=== PATIENT | female | born 1945 | race Caucasian/White ===

== ENCOUNTER → 2019-10-28 13:03 | Outpatient (BNVA) | payer MEDICARE, OTHER, SELFPAY | PROVIDERS: Family Provider Family Medicine; PCP Family Medicine; Visit Provider Family Medicine | DX: E11.65 Type 2 diabetes mellitus with hyperglycemia (principal); E78.2 Mixed hyperlipidemia; Z79.4 Long term (current) use of insulin; I10 Essential (primary) hypertension | CPT/HCPCS: 80053; 80061; 83036; 84443; 85025 ==

== ENCOUNTER → 2019-10-29 11:22 | Outpatient (BNVA) | payer MEDICARE, OTHER, SELFPAY | PROVIDERS: Family Provider Family Medicine; PCP Family Medicine; Visit Provider Specialist | DX: E11.40 Type 2 diabetes mellitus with diabetic neuropathy, unspecified (principal) | CPT/HCPCS: 99212; G0463 ==

== ENCOUNTER → 2020-02-01 12:49 | Outpatient (BNVA) | payer MEDICARE, OTHER, SELFPAY | PROVIDERS: Family Provider Family Medicine; PCP Family Medicine; Visit Provider Specialist | DX: E11.40 Type 2 diabetes mellitus with diabetic neuropathy, unspecified (principal); Z79.891 Long term (current) use of opiate analgesic | CPT/HCPCS: 99213 ==

== ENCOUNTER → 2020-04-28 11:17 | Outpatient (BNVA) | payer MEDICARE, OTHER, SELFPAY | PROVIDERS: Family Provider Family Medicine; PCP Family Medicine; Visit Provider Family Medicine | DX: E11.9 Type 2 diabetes mellitus without complications (principal) | CPT/HCPCS: 80053; 80061; 83036; 85025 ==

== ENCOUNTER → 2020-05-03 10:00 | Outpatient (BNVA) | payer MEDICARE, OTHER, SELFPAY | PROVIDERS: Family Provider Family Medicine; PCP Family Medicine; Visit Provider Specialist | DX: E11.40 Type 2 diabetes mellitus with diabetic neuropathy, unspecified (principal) | CPT/HCPCS: 99213 ==

== ENCOUNTER → 2020-06-15 13:08 | Outpatient (BNVA) | payer MEDICARE, OTHER, SELFPAY | PROVIDERS: Family Provider Family Medicine; PCP Family Medicine; Visit Provider Family Medicine | DX: E11.9 Type 2 diabetes mellitus without complications (principal) | CPT/HCPCS: 80048 ==

== ENCOUNTER → 2020-10-15 13:31 | Outpatient (BNVA) | payer MEDICARE, OTHER, SELFPAY | PROVIDERS: Family Provider Family Medicine; PCP Family Medicine | DX: M79.672 Pain in left foot (principal); L03.119 Cellulitis of unspecified part of limb; L02.619 Cutaneous abscess of unspecified foot | CPT/HCPCS: 73630 ==

== ENCOUNTER → 2020-10-25 10:48 | Outpatient (BNVA) | payer MEDICARE, OTHER, SELFPAY | PROVIDERS: Family Provider Family Medicine; PCP Family Medicine; Visit Provider Family Medicine | DX: I10 Essential (primary) hypertension (principal); E11.9 Type 2 diabetes mellitus without complications; E78.2 Mixed hyperlipidemia; Z79.4 Long term (current) use of insulin | CPT/HCPCS: 85025 ==

== ENCOUNTER → 2020-10-26 08:01 | Outpatient (BNVA) | payer MEDICARE, OTHER, SELFPAY | PROVIDERS: Family Provider Family Medicine; PCP Family Medicine; Visit Provider Specialist | DX: E11.40 Type 2 diabetes mellitus with diabetic neuropathy, unspecified (principal); Z79.4 Long term (current) use of insulin | CPT/HCPCS: 99213 ==

== ENCOUNTER → 2020-11-16 11:42 | Outpatient (BNVA) | payer MEDICARE, OTHER, SELFPAY | PROVIDERS: Family Provider Family Medicine; PCP Family Medicine; Visit Provider Family Medicine | DX: E11.9 Type 2 diabetes mellitus without complications (principal); E78.2 Mixed hyperlipidemia; I10 Essential (primary) hypertension; Z79.4 Long term (current) use of insulin | CPT/HCPCS: 80053; 80061; 83036; 84443; 85025 ==

== ENCOUNTER → 2021-01-30 15:16 | Outpatient (BNVA) | payer MEDICARE, OTHER, SELFPAY | PROVIDERS: Family Provider Family Medicine; PCP Family Medicine; Visit Provider Specialist | DX: E11.40 Type 2 diabetes mellitus with diabetic neuropathy, unspecified (principal); Z79.4 Long term (current) use of insulin | CPT/HCPCS: 99213 ==

== ENCOUNTER → 2021-02-27 14:41 | Outpatient (BNVA) | payer MEDICARE, OTHER, SELFPAY | PROVIDERS: Family Provider Family Medicine; PCP Family Medicine; Visit Provider Family Medicine | DX: K31.84 Gastroparesis (principal); E11.9 Type 2 diabetes mellitus without complications; E78.2 Mixed hyperlipidemia; I10 Essential (primary) hypertension; G43.009 Migraine without aura, not intractable, without status migrainosus; R07.9 Chest pain, unspecified; Z79.4 Long term (current) use of insulin | CPT/HCPCS: 80053; 80061; 83036; 84443; 85025 ==

== ENCOUNTER → 2021-04-06 13:50 | Outpatient (BNVA) | payer MEDICARE, OTHER, SELFPAY | PROVIDERS: Family Provider Family Medicine; PCP Family Medicine; Visit Provider Nurse Practitioner Family | DX: Z20.822 Contact with and (suspected) exposure to COVID-19 (principal) | CPT/HCPCS: 87635 ==

== ENCOUNTER → 2021-05-01 07:59 | Outpatient (BNVA) | payer MEDICARE, OTHER, SELFPAY | PROVIDERS: Family Provider Family Medicine; PCP Family Medicine; Visit Provider Specialist | DX: E11.42 Type 2 diabetes mellitus with diabetic polyneuropathy (principal); Z79.4 Long term (current) use of insulin | CPT/HCPCS: 99213; 99214 ==

== ENCOUNTER → 2021-05-22 11:57 | Outpatient (BNVA) | payer MEDICARE, OTHER, SELFPAY | PROVIDERS: Family Provider Family Medicine; PCP Family Medicine; Visit Provider Family Medicine | DX: E11.9 Type 2 diabetes mellitus without complications (principal); E78.2 Mixed hyperlipidemia; I10 Essential (primary) hypertension; K31.84 Gastroparesis; Z79.4 Long term (current) use of insulin | CPT/HCPCS: 80053; 80061; 83036; 84443; 85025 ==

== ENCOUNTER → 2021-07-31 08:01 | Outpatient (BNVA) | payer MEDICARE, OTHER, SELFPAY | PROVIDERS: Family Provider Family Medicine; PCP Family Medicine; Visit Provider Specialist | DX: E11.42 Type 2 diabetes mellitus with diabetic polyneuropathy (principal); E11.65 Type 2 diabetes mellitus with hyperglycemia; Z79.891 Long term (current) use of opiate analgesic | CPT/HCPCS: 99213; 99214 ==

== ENCOUNTER → 2021-09-19 12:51 | Outpatient (BNVA) | payer MEDICARE, OTHER, SELFPAY | PROVIDERS: Family Provider Family Medicine; PCP Family Medicine; Visit Provider Family Medicine | DX: R79.89 Other specified abnormal findings of blood chemistry (principal) | CPT/HCPCS: 80053; 80061; 83036; 85025 ==

== ENCOUNTER → 2021-09-26 13:17 | Outpatient (BNVA) | payer MEDICARE, OTHER, SELFPAY | PROVIDERS: Family Provider Family Medicine; PCP Family Medicine; Visit Provider Family Medicine | DX: E11.9 Type 2 diabetes mellitus without complications (principal); R79.89 Other specified abnormal findings of blood chemistry; E78.2 Mixed hyperlipidemia; I10 Essential (primary) hypertension; Z79.4 Long term (current) use of insulin | CPT/HCPCS: 84439; 84443; 84481 ==

== ENCOUNTER → 2021-10-30 09:06 | Outpatient (BNVA) | payer MEDICARE, OTHER, SELFPAY | PROVIDERS: Family Provider Family Medicine; PCP Family Medicine; Visit Provider Specialist | DX: E11.42 Type 2 diabetes mellitus with diabetic polyneuropathy (principal); Z79.4 Long term (current) use of insulin; Z79.891 Long term (current) use of opiate analgesic | CPT/HCPCS: 99213; 99214 ==

== ENCOUNTER → 2022-03-26 08:47 | Outpatient (BNVA) | payer MEDICARE, OTHER, SELFPAY | PROVIDERS: Family Provider Family Medicine; PCP Family Medicine; Visit Provider Specialist | DX: E11.42 Type 2 diabetes mellitus with diabetic polyneuropathy (principal); Z79.4 Long term (current) use of insulin; M79.7 Fibromyalgia; Z79.891 Long term (current) use of opiate analgesic | CPT/HCPCS: 99213; 99214 ==

== ENCOUNTER → 2022-04-17 10:28 | Outpatient (BNVA) | payer MEDICARE, OTHER, SELFPAY | PROVIDERS: Family Provider Family Medicine; PCP Family Medicine; Visit Provider Family Medicine | DX: R79.89 Other specified abnormal findings of blood chemistry (principal); E11.9 Type 2 diabetes mellitus without complications; E78.5 Hyperlipidemia, unspecified; I10 Essential (primary) hypertension | CPT/HCPCS: 80053; 80061; 83036; 84443; 85025 ==

== ENCOUNTER 2022-05-22 16:07 | Inpatient (IN) | payer MEDICARE, OTHER, SELFPAY ==
[2022-05-22 16:08] VITALS: BP 141/92; PULSE 104; RESP 18; TEMP 36.9; O2SAT 98; BMI 28.3
--- NOTE | 2022-05-22 16:22 | CTR_ITS ---
PROCEDURE INFORMATION: Exam: CT Abdomen And Pelvis Without Contrast Exam date and time: 05/22/2022 7:22 PM Age: 76 years old Clinical indication: Vomiting; Prior surgery; Surgery date: 6+ months; Surgery type: Gb, hyst; Additional info: Abd pain TECHNIQUE: Imaging protocol: Computed tomography of the abdomen and pelvis without contrast. Radiation optimization: All CT scans at this facility use at least one of these dose optimization techniques: automated exposure control; mA and/or kV adjustment per patient size (includes targeted exams where dose is matched to clinical indication); or iterative reconstruction. COMPARISON: CT abdomen pelvis con [id number] 01/06/2018 7:53 AM RADIATION DOSE METRICS: Total DLP (mGy-cm): 690.89 FINDINGS: Liver: Normal. No mass. Gallbladder and bile ducts: Normal. No calcified stones. No ductal dilation. Pancreas: Normal. No ductal dilation. Spleen: Normal. No splenomegaly. Adrenal glands: Normal. No mass. Kidneys and ureters: Left ureteropelvic junction region 8.8 mm without hydronephrosis. Several right kidney punctate nonobstructing calyceal stones. Stomach and bowel: Constipation. Appendix: No evidence of appendicitis. Intraperitoneal space: Unremarkable. No free air. No significant fluid collection. Vasculature: Unremarkable. No abdominal aortic aneurysm. Lymph nodes: Unremarkable. No enlarged lymph nodes. Urinary bladder: Unremarkable as visualized. Reproductive: Unremarkable as visualized. Bones/joints: Unremarkable. No acute fracture. Soft tissues: Unremarkable. CT/CT abdomen pelvis con [id number] IMPRESSION: 1. Left ureteropelvic junction region 8.8 mm without hydronephrosis. 2. Several right kidney punctate nonobstructing calyceal stones. 3. Constipation.
--- NOTE | 2022-05-22 16:23 | ECG_ITS ---
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 Measurements Intervals [place] Rate: 109 P: GA: QRS: 21 QRSD: 142 T: 111 QT: 388 QTc: 523 Interpretive Statements Sinus tachycardia LEFT BUNDLE BRANCH BLOCK [120+ ms QRS DURATION, 80+ ms Q/S IN V1/V2, 85+ ms R IN I/aVL/V5/V6] Compared to ECG 12/13/2017 05:47:31 Left bundle-branch block now present Myocardial infarct finding no longer present Electronically Signed On 05-22-2022 18:55:56 CDT by Sandip Sweet M.D. [id number]
--- NOTE | 2022-05-22 16:34 | ED_ITS ---
Documented by User: Jeremias Galicia DO 05/22/22 18:34 HPI - Abdominal Pain General: Chief Complaint: ER Hold Stated Complaint: N/V/ ABDOMINAL PAIN Time Seen by Provider: 05/22/22 16:22 Source: patient Mode of arrival: EMS History of Present Illness: 36-year-old female presents emergency room with c omplaints of abdominal discomfort. She had nausea vomiting began earlier today. She has several previous abdominal surgeries and has had bowel obstruction. She denies any medic easier melena. She denies any fever sweats chills no dysuria urgency or frequency. She has vomited several times since she was picked up and is still very nauseous and has significant pain here. MD elicited complaint: abdominal pain Pertinent past history: other (History of small bowel obstruction) Onset (ago): hour(s) Pain Consistency: constant Location: Diffuse Severity: severe Quality: cramping Radiation: none Exacerbating factors: nothing Relieving factors: nothing Associated Symptoms: Reports bloating, constipation, GI cramping, nausea, poor appetite and vomiting; Denies anorexia, belching, change in bowel habits, change in stool character, chills, coffee ground emesis, diarrhea, dyspepsia, dysuria, excessive flatus, fever(s), heartburn, hematochezia, hematuria, hematemesis, fecal incontinence, loose stools, melena and syncope Review of Systems Const: Denies: fever(s), chills, fatigue or malaise ENMT: Denies: throat pain, ear or mastoid pain, nasal discharge or nasal congestion Card: Denies: chest pain, palpitations or syncope Resp: Denies: dyspnea, productive cough or non-productive cough GI: Reports: abdominal pain, nausea, vomiting, constipation, bloating and GI cramping; Denies: hematemesis, coffee ground emesis, heartburn, diarrhea, belching, excessive flatus, fecal incontinence, change in bowel habits, change in stool character, hematochezia or melena : Denies: dysuria or hematuria Skin/Breast: Denies: rash or pruritus PFS ED PFSH: Medical History Abdominal pain Acidosis, lactic Anxiety and depression ASHD (arteriosclerotic heart disease) Cataracts, bilateral CKD (chronic kidney disease) Diabetes Diabetic neuropathy Diabetic peripheral neuropathy Fibromyalgia Gastroparesis Hyperlipidemia Hypertension Insomnia Intractable abdominal pain Intractable vomiting with nausea Left renal stone Leukocytosis Migraine Pyuria Ureterolithiasis Surgical History H/O angioplasty H/O carpal tunnel repair H/O: hysterectomy History of cholecystectomy Family History Mother , at age 65 Heart attack Father , at age 63 Heart attack Other Diabetes Hypertension Social History Smoking and tobacco status: never smoked Second hand smoke exposure: No Alcohol intake: never Adopted: No Caregiver/support person: Yes (spouse) Lives independently: Yes Household members: spouse Marital status: service: No Current occupational status: retired History of recent travel: No Current gender identity: Female Special vandana needs: No Agree to transfusion: Yes Physical Exam Const: GENERAL APPEARANCE: cooperative and comfortable ORIENTATION/CONSCIOUSNESS: Yes awake, Yes oriented to person, Yes oriented to place and Yes oriented to time HENMT: COMMON NORMALS: normocephalic, atraumatic, hearing grossly normal bilaterally, external ears normal, EAC's normal, TM's normal bilaterally, Normal nasal mucous membranes and turbinates present, moist oral mucous membranes and oropharynx normal HEAD & SCALP: normocephalic and atraumatic NOSE: Normal nasal mucous membranes and turbinates present EXTERNAL EAR: Yes external ears normal EXTERNAL AUDITORY CANAL: EAC's normal TYMPANIC MEMBRANE: TM's normal bilaterally Eye: COMMON NORMALS: Equal, round and reactive pupils present, EOMs intact bilaterally, conjunctivae normal and no scleral icterus CONJUNCTIVA: Yes conjunctivae normal PUPIL: Yes Equal, round and reactive pupils present Neck/C-Spine: COMMON NORMALS: full ROM, no lymphadenopathy, supple and no JVD Lymph: LYMPHATIC: no lymphadenopathy noted and no lymphedema noted Resp: COMMON NORMALS: normal respiratory effort, No retractions, No use of accessory muscles and clear to auscultation bilaterally AUSCULTATION: clear to auscultation bilaterally Cardio: COMMON NORMALS: no JVD, regular rate, regular rhythm and No murmurs present (Cardio) RATE: regular rate RHYTHM: regular rhythm GI: AUSCULTATION: Yes Hypoactive bowel sounds present PALPATION: Yes Tenderness to palpation present (GI) Extremity: COMMON NORMALS: normal to inspection, capillary refill normal, no clubbing, cyanosis or edema, no calf tenderness and no pedal edema Neuro: SENSORIUM/ORIENTATION: Yes oriented to person, Yes oriented to place and Yes oriented to time Skin: COMMON NORMALS: no rashes or lesions noted GENERAL SKIN EXAM: no rashes or lesions noted Course Vital Signs: Vital signs: Vital Signs Temperature 98.4 F 05/25/22 12:48 Pulse Rate 77 05/25/22 12:48 Respiratory Rate 15 05/25/22 12:48 Blood Pressure 147/86 05/25/22 12:48 Pulse Oximetry 94 05/25/22 12:48 Oxygen Delivery Me thod 05/25/22 12:00 Oxygen Flow Rate 8 05/25/22 02:17 MDM - Abdominal Pain Medical Decision Making Care signed out to Dr. Fontenot at change of shift. See final notes for diagnosis and disposition. Lab Data : 05/25/22 04:50 05/25/22 04:50 Labs/Radiology: Radiology Impressions Abdomen/Pelvis CT 05/22/22 16:22 IMPRESSION: 1. Left ureteropelvic junction region 8.8 mm without hydronephrosis. 2. Several right kidney punctate nonobstructing calyceal stones. 3. Constipation. ADDENDUM: 05/22/222020 Findings and impression should read left ureteropelvic junction region 8.8 mm urinary calculus without hydronephrosis. Right-sided renal calyceal stones appears similar compared to prior exam and are nonobstructive measuring up to 4.3 mm. C-Arm Fluoroscopy 05/23/22 12:16 IMPRESSION: Left ureteral pyelography and left ureteral stent placement as above. Laboratory Results WBC 11.9 10^3/uL (4.0-10.0) H 05/22/22 16:56 RBC 4.51 10^6/uL (4.1-5.3) 05/22/22 16:56 Hgb 13.3 g/dL (11.5-15.3) 05/22/22 16:56 Hct 44.2 % (37.0-47.0) 05/22/22 16:56 MCV 98.0 fl (81-99) 05/22/22 16:56 MCH 29.5 pg (28.0-34.0) 05/22/22 16:56 MCHC 30.1 g/dL (30.0-36.0) 05/22/22 16:56 RDW 13.0 % (12.1-15.1) 05/22/22 16:56 Plt Count 303 10^3/cmm (130-400) 05/22/22 16:56 MPV 11.2 fL (7.4-10.4) H 05/22/22 16:56 Neut % (Auto) 80.3 % 05/22/22 16:56 Lymph % (Auto) 16.7 % 05/22/22 16:56 [place] % (Auto) 2.2 % 05/22/22 16:56 Eos % (Auto) 0.2 % 05/22/22 16:56 Baso % (Auto) 0.3 % 05/22/22 16:56 Neut # (Auto) 9.55 10^3/uL (1.8-7.7) H 05/22/22 16:56 Lymph # (Auto) 2.0 10^3/uL (0.8-4.8) 05/22/22 16:56 [place] # (Auto) 0.3 10^3/uL (0.2-0.9) 05/22/22 16:56 Eos # (Auto) 0.0 10^3/uL (0.0-0.8) 05/22/22 16:56 Baso # (Auto) 0.0 10^3/uL (0.0-0.1) 05/22/22 16:56 Nucleated RBC % (auto) 0 % 05/22/22 16:56 Nucleated RBCs # 0.0 /100WBC 05/22/22 16:56 Sodium 139 mmol/L (136-145) 05/22/22 16:56 Potassium 3.5 mmol/L (3.5-5.1) 05/22/22 16:56 Chloride 101 mmol/L (98-107) 05/22/22 16:56 Carbon Dioxide 18 mmol/L (22-29) L 05/22/22 16:56 Anion Gap 23.5 (5-19) H 05/22/22 16:56 BUN 21 mg/dL (8-23) 05/22/22 16:56 Creatinine 1.2 mg/dL (0.5-0.9) H 05/22/22 16:56 GFR Calculation Not Reportable 05/22/22 16:56 Glucose 205 mg/dL (65-115) H 05/22/22 16:56 Calculated Osmolality 297 mOsm/kg (285-295) H 05/22/22 16:56 Lactic Acid 4.4 mmol/L (0.5-2.2) H* 05/22/22 19:40 Calcium 9.3 mg/dL (8.5-10.5) 05/22/22 16:56 Total Bilirubin 0.4 mg/dL (0.15-1.2) 05/22/22 16:56 AST 14 U/L (0-32) 05/22/22 16:56 ALT 12 U/L (0-33) 05/22/22 16:56 Alkaline Phosphatase 81 IU/L (35-105) 05/22/22 16:56 C-Reactive Protein 3.0 mg/L (0.0-4.9) 05/22/22 16:56 Total Protein 7.0 g/dL (6.6-8.7) 05/22/22 16:56 Albumin 4.0 g/dL (3.5-5.2) 05/22/22 16:56 Globulin 3.0 g/dL (1.3-4.6) 05/22/22 16:56 Procalcitonin 0.08 ng/mL (0-0.5) 05/22/22 16:56 Free T4 1.41 ng/dL (0.82-1.77) 05/22/22 16:56 Urine Color Yellow (Yellow) 05/22/22 20:30 Urine Appearance Hazy (CLEAR) A 05/22/22 20:30 Urine pH 5 (5-7) 05/22/22 20:30 Ur Specific [place] 1.020 (1.005-1.030) 05/22/22 20:30 Urine Protein 2+ (Negative) H 05/22/22 20:30 Urine Glucose (UA) 1+ (Normal) H 05/22/22 20:30 Urine Ketones 1+ (Negative) H 05/22/22 20:30 Urine Blood 3+ (Negative) H 05/22/22 20:30 Urine Nitrate Negative (Negative) 05/22/22 20:30 Urine Bilirubin Neg (Negative) 05/22/22 20:30 Urine Urobilinogen Norm mg/dL (Negative) 05/22/22 20:30 Ur Leukocyte Esterase Negative (Negative) 05/22/22 20:30 Urine RBC 0-4 /hpf (0-2) H 05/22/22 20:30 Urine WBC 5-10 /hpf (0-5) H 05/22/22 20:30 Ur Squamous Epith Cells 5-10 /hpf (0-5) H 05/22/22 20:30 Amorphous Sediment 3+ /hpf 05/22/22 20:30 Urine Bacteria Trace /hpf (NONE) 05/22/22 20:30 Hyaline Casts 5-10 /lpf H 05/22/22 20:30 Discharge Plan Discharge Patient Disposition: Admitted As Inpatient Admit Provider: Gurdeep Heredia Clinical Impression: Abdominal pain, Ureterolithiasis, Leukocytosis, Acidosis, lactic, Intractable vomiting with nausea, Intractable abdominal pain Condition: Stable Discharge Diet: Diabetic Discharge Activity: Increase activity as tolerated Sign Out Sign Out Data: Patient Sign Out occurred on 05/22/22 at 18:45. Patient's care was discussed, and care was transferred from to Shakeel Fontenot MD. Coding Level of Care Code ED Reel And Rewinder Operator for Chg Fwd Exam Comprehensive Documented by User: Shakeel Fontenot MD 06/05/22 22:53 HPI - Abdominal Pain General: Chief Complaint: ER Hold Stated Complaint: N/V/ ABDOMINAL PAIN Time Seen by Provider: 05/22/22 16:22 PFSH ED PFSH: Medical History Abdominal pain Acidosis, lactic Anxiety and depression ASHD (arteriosclerotic heart disease) Cataracts, bilateral CKD (chronic kidney disease) Diabetes Diabetic neuropathy Diabetic peripheral neuropathy Fibromyalgia Gastroparesis Hyperlipidemia Hypertension Insomnia Intractable abdominal pain Intractable vomiting with nausea Left renal stone Leukocytosis Migraine Pyuria Ureterolithiasis Surgical History H/O angioplasty H/O carpal tunnel repair H/O: hysterectomy History of cholecystectomy Family History Mother , at age 65 Heart attack Father , at age 63 Heart attack Other Diabetes Hypertension Social History Smoking and tobacco status: never smoked Second hand smoke exposure: No Alcohol intake: never Adopted: No Caregiver/support person: Yes (spouse) Lives independently: Yes Household members: spouse Marital status: service: No Current occupational status: retired History of recent travel: No Current gender identity: Female Special vandana needs: No Agree to transfusion: Yes Course Vital Signs: Vital signs: Vital Signs Temperature 98.4 F 05/25/22 12:48 Pulse Rate 77 05/25/22 12:48 Respiratory Rate 15 05/25/22 12:48 Blood Pressure 147/86 05/25/22 12:48 Pulse Oximetry 94 05/25/22 12:48 Oxygen Delivery Me thod 05/25/22 12:00 Oxygen Flow Rate 8 05/25/22 02:17 MDM - Abdominal Pain Medical Decision Making Care signed out to Dr. Fontenot at change of shift. See final notes for diagnosis and disposition. Patient care handoff received from Dr. Galicia pending portion of ED evaluation. Labs with leukocytosis, normal hemoglobin. Some evidence of dehydration/metabolic stress on metabolic panel. Lactate elevated. CT abdomen and pelvis with left UPJ large stone. Though patient does not have significant evidence of UTI I do believe that given laboratory studies and continued symptoms warrant inpatient management. Discussed with hospitalist service and patient admitted for further management. Shakeel Fontenot MD Emergency Medicine Lab Data : 05/25/22 04:50 05/25/22 04:50 Labs/Radiology: Radiology Impressions Abdomen/Pelvis CT 05/22/22 16:22 IMPRESSION: 1. Left ureteropelvic junction region 8.8 mm without hydronephrosis. 2. Several right kidney punctate nonobstructing calyceal stones. 3. Constipation. ADDENDUM: 05/22/222020 Findings and impression should read left ureteropelvic junction region 8.8 mm urinary calculus without hydronephrosis. Right-sided renal calyceal stones appears similar compared to prior exam and are nonobstructive measuring up to 4.3 mm. C-Arm Fluoroscopy 05/23/22 12:16
[2022-05-22 16:42] VITALS: RESP 21; O2SAT 98
[2022-05-22] MEDS: ondansetron 2 mg/ML SDV 2 mL 4 MG IVP ×2 (16:42→20:02)
[2022-05-22] MEDS: morphine 4 mg/mL SDV 1 mL IVP ×3 (16:42→22:23)
[2022-05-22] MEDS: sodium chloride 0.9% 1,000 ML 999 ML IV ×2 (16:43→22:02)
[2022-05-22 17:02] LABS: Basophils % 0.3 %; Eosinophils % 0.2 %; Hematocrit 44.2 % (37.0-47.0); Hemoglobin 13.3 g/dL (11.5-15.3); Lymphocytes % 16.7 %; Mean Corpuscular HGB Conc 30.1 g/dL (30.0-36.0); Mean Corpuscular Hemoglobin 29.5 pg (28.0-34.0); Mean Platelet Volume 11.2 fL (7.4-10.4); Monocytes # 0.3 10^3/uL (0.2-0.9); Monocytes % 2.2 %; Neutrophils # 9.55 10^3/uL (1.8-7.7); Neutrophils % 80.3 %; Nucleated Red Blood Cells % 0 %; Platelet Count 303 10^3/cmm (130-400); Red Blood Count 4.51 10^6/uL (4.1-5.3); White Blood Count 11.9 10^3/uL (4.0-10.0)
[2022-05-22 17:25] LABS: Alanine Aminotransferase 12 U/L (0-33); Alkaline Phosphatase 81 IU/L (35-105); Aspartate Amino Transferase 14 U/L (0-32); Blood Urea Nitrogen 21 mg/dL (8-23); Calcium 9.3 mg/dL (8.5-10.5); Carbon Dioxide 18 mmol/L (22-29); Chloride 101 mmol/L (98-107); Glucose 205 mg/dL (65-115); Osmolality Calculated 297 mOsm/kg (285-295); Sodium 139 mmol/L (136-145); Total Bilirubin 0.4 mg/dL (0.15-1.2)
[2022-05-22 17:26] LABS: Anion Gap 23.5 (5-19); Potassium 3.5 mmol/L (3.5-5.1)
--- NOTE | 2022-05-22 18:33 | PC.NURSE ---
PT REFUSED CT WITH CONTRAST. PHYSICIAN VERBALLY ORDERED CT WITHOUT CONTRAST.
[2022-05-22] MEDS: tamsulosin 0.4 mg Capsule PO (20:02)
[2022-05-22 20:13] LABS: Lactic Sepsis W/Reflex 4.4 mmol/L (0.5-2.2)
[2022-05-22 20:53] LABS: Add Urine Microscopic? YES; Bilirubin Urine Neg (Negative); Blood Urine 3+ (Negative); Glucose Urine UA 1+ (Normal); Ketones Urine 1+ (Negative); Leukocyte Esterase Urine Negative (Negative); Nitrate Urine Negative (Negative); Protein Urine 2+ (Negative); Urine Appearance Hazy (CLEAR); Urine Color Yellow (Yellow); Urobilinogen Urine Norm (Negative); pH Urine 5 (5-7)
[2022-05-22 20:54] LABS: Add Urine Culture? No; Amorphous Sediment Urine 3+ /hpf; Bacteria Urine TRACE /hpf; RBC Urine 0-4 /hpf (0-2)
[2022-05-22 21:00] VITALS: BP 143/99; PULSE 120; O2SAT 98
[2022-05-22 21:38] LABS: Reflex Lactate Order REFLEX LACTIC ORDERD
[2022-05-22 22:02] LABS: Procalcitonin 0.08 ng/mL (0-0.5)
[2022-05-22 22:17] LABS: SARS Covid-2 Antigen Negative (Negative)
--- NOTE | 2022-05-22 22:19 | P.HP_ITS ---
Providers/Chief Complaint Primary Care Provider: Jane Strickland MD Chief Complaint: N/V/ ABDOMINAL PAIN History of Present Illness Evelyn Farley is a 76 year old female with a past medical history of insulin- dependent type 2 diabetes mellitus, diabetic gastroparesis, diabetic neuropathy, CAD, anxiety depression, CKD, hypertension, who was had multiple abdominal surgeries including cholecystectomy and appendectomy, exploratory laparotomy for adhesions, who was had multiple kidney stones in the past, right-sided kidney stones requiring stent placement, lithotripsy, she also required an open procedure when she was in her 30s for kidney stones. Who presents to [facility] for complaints of lower left pelvic pain for the last 48 hours. She tells me that yesterday she had severe left lower pelvic pain, radiating to her groin, associate with nausea, vomiting, no fevers, no chills. She tells me that her last bowel movement was today, no bloody or black stools. She does have a history of GI bleeds, history of potentially gastric ulcers and EGD 10 years ago but she does remember she did receive a transfusion, no hemoptysis, but her bucket at bedside is pink-tinged according to her which she and her daughter are concerned about her no history of atrial fibrillation, no history of ischemic bowel, her abdomen is distended, does bother her, but she is really not tender she tells me her pain is primarily in the lower left pelvis. She denies a history of urinary tract infections, no dysuria, hematuria. Review of Systems Const: Denies: fever(s), chills, fatigue or malaise Eyes: Denies: change in vision ENMT: Denies: nasal congestion Card: Denies: chest pain Resp: Denies: dyspnea, productive cough, non-productive cough or wheezing GI: Reports: abdominal pain, nausea and vomiting; Denies: coffee ground emesis, diarrhea or constipation : Denies: dysuria or urinary frequency Skin/Breast: Denies: rash Neuro: Denies: dizziness Endo: Denies: polyuria or polydipsia Medications/Allergies Home Medications Medication Instructions Recorded Confirmed Last Taken Type aspirin 81 mg tablet,delayed 81 mg PO ONCE 10/28/19 03/26/22 Unknown History release (Adult Low Dose Aspirin) blood-glucose meter #1 ea 11/19/19 03/26/22 Unknown Rx ropinirole 0.25 mg tablet See Rx Instructions .Route 07/31/21 03/26/22 Unknown Rx .COMPLEX #90 tabs insulin aspart U-100 100 unit/mL 5 unit (0.05 mL) SUBCUT TID 30 09/26/21 03/26/22 Unknown Rx (3 mL) subcutaneous pen (Novolog days #4.5 mL Flexpen U-100 Insulin aspart) metoclopramide HCl 5 mg tablet 5 mg PO TID #30 tabs 09/26/21 03/26/22 Unknown Rx metoprolol tartrate 100 mg tablet See Rx Instructions .Route 09/26/21 03/26/22 Unknown Rx .COMPLEX #180 tabs hydrocodone 10 mg-acetaminophen 1 tab PO Q8H PRN pain 1 month #90 03/26/22 03/26/22 Unknown Rx 325 mg tablet tabs hydrocodone 10 mg-acetaminophen 1 tab PO Q8H PRN pain 30 days #90 03/26/22 03/26/22 Unknown Rx 325 mg tablet tabs hydrocodone 10 mg-acetaminophen 1 tab PO Q8H PRN pain 30 days #90 03/26/22 03/26/22 Unknown Rx 325 mg tablet tabs ramipril 5 mg capsule See Rx Instructions .Route 04/24/22 Unknown Rx .COMPLEX #90 caps liraglutide 0.6 mg/0.1 mL (18 mg/3 See Rx Instructions SUBCUT 05/04/22 Unknown Rx mL) subcutaneous pen injector .COMPLEX #9 mL (Victoza 3-Moris) rosuvastatin 40 mg tablet See Rx Instructions .Route 05/07/22 Unknown Rx .COMPLEX #30 tabs blood sugar diagnostic (Accu-Chek #100 ea 05/09/22 Unknown Rx Mer[place] Plus test strp) insulin detemir U-100 100 unit/mL See Rx Instructions .Route 05/09/22 Unknown Rx (3 mL) subcutaneous pen (Levemir .COMPLEX #48 mL FlexTouch U-100 Insulin) pen needle, diabetic 32 gauge x ##100 05/18/22 Unknown Rx (TRUEplus Pen Needle) Allergies Allergy/AdvReac Type Severity Reaction Status Date / Time gabapentin Allergy hallucinati Verified 03/26/22 08:59 ons Iodinated Contrast Media Allergy Unknown Verified 03/26/22 08:59 nifedipine [From Procardia] Allergy Unknown Verified 03/26/22 08:59 prochlorperazine Allergy Unknown Verified 03/26/22 08:59 [From Compazine] PFSH Acute PFSH: Medical History Anxiety and depression ASHD (arteriosclerotic heart disease) Cataracts, bilateral CKD (chronic kidney disease) Diabetes Diabetic neuropathy Fibromyalgia Hyperlipidemia Hypertension Insomnia Migraine Surgical History H/O angioplasty H/O carpal tunnel repair H/O: hysterectomy History of cholecystectomy Family History Other Diabetes Hypertension Social History Smoking and tobacco status: never smoked Second hand smoke exposure: No Alcohol intake: never Adopted: No Caregiver/support person: Yes (spouse) Lives independently: Yes Household members: spouse Marital status: service: No Current occupational status: retired History of recent travel: No Current gender identity: Female Special vandana needs: No Agree to transfusion: Yes Vitals/I&O/Wt Last Vital Signs Temp 98.4 F 05/22/22 16:08 Pulse 120 H 05/22/22 21:00 Resp 21 H 05/22/22 16:42 BP 143/99 05/22/22 21:00 Pulse Ox 98 05/22/22 21:00 O2 Del Method 05/22/22 21:00 05/22/22 05/22/22 05/22/22 06:59 14:59 22:59 Intake Total 1000 / 1000 Balance 1000 / 1000 Weight last 48 hrs Weight 70.307 kg Physical Exam Const: COMMON NORMALS: no acute distress and patient oriented x3 HENMT: COMMON NORMALS: normocephalic HEAD & SCALP: normocephalic Eye: COMMON NORMALS: Equal, round and reactive pupils present and EOMs intact bilaterally Neck/C-Spine: COMMON NORMALS: no JVD Resp: COMMON NORMALS: normal respiratory effort, No retractions, No use of accessory muscles and clear to auscultation bilaterally AUSCULTATION: clear to auscultation bilaterally Cardio: COMMON NORMALS: no JVD, regular rate, regular rhythm, S1 normal heart sound present and S2 normal heart sound present RATE: regular rate RHYTHM: regular rhythm HEART SOUNDS: S1 normal heart sound present and S2 normal heart sound present GI: PALPATION: Yes Soft to palpation and Yes No hepatosplenomegaly present OTHER: On examination, abdomen is slightly distended, decreased bowel sounds in all quadrants, has some tenderness in the left lower quadrant, has tenderness primarily lower left quadrant, primarily more in the left pelvis, radiating to the groin,, no guarding, no rigidity, no rebound tenderness Extremity: COMMON NORMALS: capillary refill normal, no clubbing, cyanosis or edema, no calf tenderness and no pedal edema Neuro: COMMON NORMALS: patient oriented x3, CN's II-XII intact bilaterally, moves all extremities and no focal motor deficits Psych: COMMON NORMALS: mental status grossly normal Data : 05/22/22 16:56 05/22/22 16:56 A&P Assessment and plan (1) Ureterolithiasis: Status: Acute (2) Leukocytosis: Status: Acute (3) Acidosis, lactic: Status: Acute (4) Intractable vomiting with nausea: Status: Acute (5) Abdominal pain: Status: Acute Plan Left lower quadrant pain/left pelvic pain Liver: Normal. No mass. Gallbladder and bile ducts: Normal. No calcified stones. No ductal dilation. Pancreas: Normal. No ductal dilation. Spleen: Normal. No splenomegaly. Adrenal glands: Normal. No mass. Kidneys and ureters: Left ureteropelvic junction region 8.8 mm without hydronephrosis. Several right kidney punctate nonobstructing calyceal stones. Stomach and bowel: Constipation. Appendix: No evidence of appendicitis. Intraperitoneal space: Unremarkable. No free air. No significant fluid collection. Vasculature: Unremarkable. No abdominal aortic aneurysm. Lymph nodes: Unremarkable. No enlarged lymph nodes. Urinary bladder: Unremarkable as visualized. Reproductive: Unremarkable as visualized. Bones/joints: Unremarkable. No acute fracture. Soft tissues: Unremarkable. -WBC 11.9, creatinine 1.2 -Lactic acid 4.4 Pro-Bassam 0.08, CRP 3 -Urine shows 3+ blood, 5-10 WBCs, leukocyte Estrace negative, nitrite negative Plan -Pain likely secondary to UPJ stone -Elevated lactic acid likely secondary to UPJ stone, sepsis, dehydration secondary nausea vomiting -There is concern given a low lactic acid, for the possibility of ischemic bowel, on examination her abdomen does not seem surgical to me, her CT scan was done without contrast but did not have any features related to ischemic bowel, she had a bowel movement a few hours ago -Start IV fluids, trend lactic acid every 4 hours serial abdominal exams -In addition, she does have a history of gastric ulcers, some of her vomit is pink-tinged, Protonix, Carafate, IV fluids, monitor for hematemesis monitor hemoglobin -Broad-spectrum antibiotic therapy vancomycin, Zosyn -Urology has been consulted -Low-dose sliding scale -DNR/DNI -Lovenox for DVT prophylaxis Attestations Medical Necessity Statement*: Patient requires hospitalization for left UPJ stone, inpatient, greater than 2 midnights Coding Level of Care Code Acute Trimmer And Borer Machine Operator for [facility] Diagnoses Ureterolithiasis N20.1 Leukocytosis D72.829 Acidosis, lactic E87.2 Intractable vomiting with nausea R11.2 Abdominal pain R10.9
[2022-05-22] MEDS: haloperidol inj 5 mg/mL INJ 1 mL 2 MG IVP (22:23)
[2022-05-22 22:42] LABS: Free T4 Free Thyroxine 1.41 ng/dL (0.82-1.77)
[2022-05-22 23:00] VITALS: BP 135/77; PULSE 128; O2SAT 100
[2022-05-22 23:45] LABS: INR 0.96 (0.8-1.2)
[2022-05-22] MEDS: pantoprazole 40 mg SDV IVP (23:52)
[2022-05-22 23:53] LABS: Estmated Average Glucose 209; Hemoglobin A1C 8.9 % (4.0-6.0); Lactic Acid level (Lactate) 3.2 mmol/L (0.5-2.2)
[2022-05-22] MEDS: enoxaparin 40 mg/0.4 mL Syringe SUBCUT (23:53)
[2022-05-22] MEDS: aspirin 81 mg EC Tablet PO (23:53)
[2022-05-22] MEDS: sodium chloride 0.9% 1,000 ML 125 ML IV (23:56)
[2022-05-22 23:58] LABS: Chol HDL Ratio 3.14 mg/dL (0.0-4.40); Cholesterol 135 mg/dL (0-200); HDL Cholesterol 43 mg/dL (60-100); LDL Cholesterol Calculated 68 mg/dL (50-129); LDL HDL Ratio 1.58 RATIO (0.00-3.22); Thyroid Stimulating Hormone 1.63 uIU/mL (0.27-4.20); Triglycerides 121 mg/dL (0-150)
[2022-05-23] VITALS (25 sets, daily range): BP systolic 87–167; BP diastolic 60–99; PULSE 94–123; RESP 12–24; TEMP 36.8–37.3; O2SAT 91–100
--- NOTE | 2022-05-23 | SCC_ITS ---
Procedure done: 1. Cystoscopy, left retrograde ureteropyelogram, left ureteral stent 14.7 seconds of fluoroscopic guidance, for a cumulative dose of 8.31 mGy, was provided to Dr. Jones by the radiology department. C-arm images of the abdomen were saved for the patient's permanent record. [facility]
[2022-05-23] MEDS: ropinirole 0.25 mg Tablet PO ×2 (00:01→09:47)
--- NOTE | 2022-05-23 00:08 | PC.PHAR ---
Pharmacokinetic dosing service Date: 05/23/22 Time: 0000 Objective: Patient: Evelyn Farley Floor: ED-12 Age: 76 yo Serum creatinine: 1.2 mg/dL Height: 62.0 Inches Weight (kg): 70.307 Diagnosis: Relevant medical/social history: Cultures and sensitivities: Other labs: Assessment: IBW (kg): 50.10 Dosing wt(kg): 70.307 Estimated Creatinine clearance (ml/min): 32.0 CRCL method: Cockcroft and Gault using ibw(default). Drug selected: Vancomycin Loading dose (mg): 0 Vd (liters): 63.3 (factor used: 0.9 L/kg) Say (hr-1): 0.031 Half life (hrs): 22.36 Recommended dose: 1250 mg Interval: 24 hrs Infusion time (hrs): 1.5 Predicted peak (mcg/mL): 36.8 Predicted trough (mcg/mL): 18.32 Total body weight is being used for vancomycin dosing. Renal function is stable [ ] /unstable [ ] Recommendations: Give Vancomycin 1250 mg q 24 hrs with an expected Cpeak of 36.8 mcg/ml and an expected Ctrough of 18.32 mcg/ml Renal dosing of other antibiotics (review renal dosing of other medications and list guidelines here): Thank you for the consult, will continue to follow. Signature: Kathryn Valle [facility]
[2022-05-23] MEDS: vancomycin 1,250 MG/250 ML PIGGYBACK 250 MG IV (01:42)
[2022-05-23] MEDS: metoclopramide 5 mg/mL SDV 2 mL IVP ×3 (01:46→21:40)
[2022-05-23] MEDS: HYDROmorphone 1 mg/mL INJ 1 mL IVP ×4 (01:46→21:40)
[2022-05-23] MEDS: piperacillin-tazobactam 3.375 GM in sodium chloride 0.9% (plus) 50 ML IV ×3 (03:40→18:23)
[2022-05-23 06:08] LABS: Albumin Level 2.8 g/dL (3.5-5.2); Alkaline Phosphatase 71 IU/L (35-105); Blood Urea Nitrogen 19 mg/dL (8-23); Calcium 7.6 mg/dL (8.5-10.5); Carbon Dioxide 17 mmol/L (22-29); Chloride 104 mmol/L (98-107); Creatine Phosphokinase 122 U/L (26-192); Globulin 2.9 g/dL (1.3-4.6); Glucose 242 mg/dL (65-115); Magnesium 1.8 mg/dL (1.7-2.3); Osmolality Calculated 290 mOsm/kg (285-295); Phosphorus 3.9 mg/dL (2.5-4.5); Sodium 135 mmol/L (136-145); Total Bilirubin 0.5 mg/dL (0.15-1.2); Total Protein 5.7 g/dL (6.6-8.7)
[2022-05-23 06:09] LABS: Anion Gap 18.2 (5-19); Lactate (Lactic Acid level) 1.9 mmol/L (0.5-2.2); Potassium 4.2 mmol/L (3.5-5.1)
[2022-05-23 06:11] LABS: Alanine Aminotransferase 10 U/L (0-33); Aspartate Amino Transferase 19 U/L (0-32)
[2022-05-23 06:13] LABS: Procalcitonin 0.06 ng/mL (0-0.5)
[2022-05-23] MEDS: sodium chloride 0.9% 1,000 ML 125 ML IV ×2 (06:35→16:16)
[2022-05-23] MEDS: sucralfate 1 gm Tablet PO ×2 (07:15→16:17)
[2022-05-23 07:23] LABS: Glucose Point of Care 238 mg/dL (70-110)
[2022-05-23 09:22] LABS: Basophils % 0.2 %; Hemoglobin 10.3 g/dL (11.5-15.3); Lymphocytes # 2.2 10^3/uL (0.8-4.8); Lymphocytes % 18.1 %; Mean Corpuscular HGB Conc 31.2 g/dL (30.0-36.0); Mean Corpuscular Hemoglobin 29.6 pg (28.0-34.0); Mean Corpuscular Volume 94.8 fl (81-99); Monocytes # 0.7 10^3/uL (0.2-0.9); Monocytes % 6.1 %; Neutrophils # 9.16 10^3/uL (1.8-7.7); Neutrophils % 75.2 %; Nucleated Red Blood Cells % 0 %; Platelet Count 252 10^3/cmm (130-400); Red Blood Count 3.48 10^6/uL (4.1-5.3); Red Cell Distribution Width 13.4 % (12.1-15.1); White Blood Count 12.2 10^3/uL (4.0-10.0)
[2022-05-23] MEDS: atorvastatin 40 mg Tablet 80 MG PO (09:46)
[2022-05-23] MEDS: metoprolol tartrate 50 mg Tablet 100 MG PO ×2 (09:47→19:46)
--- NOTE | 2022-05-23 10:06 | PC.NURSE ---
DR. MEDINA GAVE VERBAL ORDER TO HOLD MORNING INSULIN DOSE.
[2022-05-23] MEDS: pantoprazole 40 mg SDV IVP ×2 (11:58→19:45)
--- NOTE | 2022-05-23 12:16 | SC_ITS ---
WS: [id number] C-[facility] [place] for Urology REASON FOR EXAM: Cystoscopy, left retrograde ureteropyelogram, left ureteral FINDINGS: Left ureteral pyelography demonstrates a normal left ureter. Large filling defect in the extrarenal p evon congruent with previously demonstrated large calculus. Follow on left ureteral stent placement in proper position. SC/C-arm [place] for Urology IMPRESSION: Left ureteral pyelography and left ureteral stent placement as above.
--- NOTE | 2022-05-23 12:32 | P.CONIM_ITS ---
Providers/Reason For Consult Consulting Physician/Specialty*: Urology/Jones Reason for Consult*: Left UPJ stone, possible obstructive pyelonephritis Requesting Physician: Dr. Heredia Attending Physician: Gurdeep Heredia MD Primary Care Provider: Jane Strickland MD History of Present Illness History of Present Illness Evelyn Farley is a 76 year old female who I have seen remotely for history of stones. Those records preceded any computerized records available. Events leading to hospitalization began the morning of her presentation to the ER. She started having nausea vomiting and left lower quadrant pain. Does have a history of bowel obstructions. She does not relate these current symptoms to those episodes though. CT scan was performed that demonstrated. No clear GI source. She was found to have a large stone at the left UPJ but without clear evidence of hydronephrosis. Urine showed some white cells but no clearly definable UTI. Her lactate was elevated white count was mildly elevated. And I was consulted for evaluation of the stone I did personally review the films and agree with the findings. Labs were also reviewed. Its not clear to me that the stone is causing her pain which is mostly localized in the left lower quadrant. She is without significant left upper quadrant or CVA pain or tenderness. Denies fever or chills. Ultimately in the absence of other clear etiology and in the presence of an obvious UPJ stone offered left ureteral stent placement for at least clarification of her underlying condition. If she is in fact suffering from symptomatic renal colic and/or UTI/possible obstructive pyelonephritis she should see fairly prompt improvement with stenting. If not then the stent at least helps protect the left kidney and we can consider definitive treatment of the stone later after she recovers from her other etiology illness. Informed consent was obtained after detailed explanation of the above rationale. Her family participated in the conversation with good [id number] questioning. Review of Systems Const: Reports: fatigue and malaise; Denies: fever(s) or chills Eyes: Denies: change in vision or yellow eyes ENMT: Denies: hoarseness or swelling of lips/tongue Card: Denies: chest pain or palpitations Resp: Denies: dyspnea, productive cough or non-productive cough GI: Reports: abdominal pain, nausea and vomiting; Denies: hematochezia : Reports: other (No dysuria.); Denies: flank pain, difficulty voiding or hematuria Musc: Denies: joint redness Skin/Breast: Denies: rash Neuro: Denies: confusion or Slurred speech present Psych: Denies: anxiety Endo: Denies: polyuria or flushing Alen/Lymph: Denies: easy bruising or easy bleeding All/Imm: Denies: urticaria or throat swelling Medications/Allergies Home Medications Medication Instructions Recorded Confirmed Last Taken Type aspirin 81 mg tablet,delayed 81 mg PO BEDTIME 10/28/19 05/23/22 Unknown History release (Adult Low Dose Aspirin) blood-glucose meter #1 ea 11/19/19 05/23/22 Unknown Rx insulin aspart U-100 100 unit/mL 5 unit (0.05 mL) SUBCUT TID 30 09/26/21 05/23/22 Unknown Rx (3 mL) subcutaneous pen (Novo days #4.5 mL Flexpen U-100 Insulin aspart) hydrocodone 10 mg-acetaminophen 1 tab PO Q8H PRN pain 30 days #90 03/26/22 05/23/22 Unknown Rx 325 mg tablet tabs blood sugar diagnostic (Accu-Chek #100 ea 05/09/22 05/23/22 Unknown Rx Merced Plus test strp) pen needle, diabetic 32 gauge x ##100 05/18/22 05/23/22 Unknown Rx 5/32 (TRUEplus Pen Needle) insulin detemir U-100 100 unit/mL 80 unit SUBCUT BID 05/23/22 05/23/22 Unknown History (3 mL) subcutaneous pen (Levemir FlexTouch U-100 Insulin) liraglutide 0.6 mg/0.1 mL (18 mg/3 1.2 mg SUBCUT QAM 05/23/22 05/23/22 Unknown History mL) subcutaneous pen injector (Victoza 3-Moris) metoprolol tartrate 100 mg tablet 100 mg PO Q12H 05/23/22 05/23/22 Unknown History multivitamin 1 tab PO QAM 05/23/22 05/23/22 Unknown History ramipril 5 mg capsule 5 mg PO BEDTIME 05/23/22 05/23/22 Unknown History ropinirole 0.25 mg tablet 0.25 mg PO BEDTIME 05/23/22 05/23/22 Unknown History rosuvastatin 40 mg tablet 40 mg PO BEDTIME 05/23/22 05/23/22 Unknown History Allergies Allergy/AdvReac Type Severity Reaction Status Date / Time gabapentin Allergy hallucinati Verified 05/23/22 08:15 ons Iodinated Contrast Media Allergy Unknown Verified 05/23/22 08:15 nifedipine [From Procardia] Allergy Unknown Verified 05/23/22 08:15 prochlorperazine Allergy Unknown Verified 05/23/22 08:15 [From Compazine] Current Medications Generic Name Dose Route Start Last Admin Trade Name Freq PRN Reason Stop Dose Admin Aspirin 81 mg 05/22/22 22:52 05/22/22 23:53 Aspirin 81 Mg Ec Tablet PO 81 mg ONCE LIAT Administration Atorvastatin Calcium 80 mg 05/23/22 09:00 05/23/22 09:46 Atorvastatin 40 Mg Tablet PO 80 mg DAILY LIAT Administration Enoxaparin Sodium 40 mg 05/22/22 23:45 05/22/22 23:53 Enoxaparin 40 Mg/0.4 Ml Syringe SUBCUT 40 mg Q24H LIAT Administration Hydromorphone HCl 1 mg 05/22/22 22:52 05/23/22 11:59 Hydromorphone 1 Mg/Ml Inj 1 Ml IVP 1 mg Q2H PRN Administration pain Sodium Chloride 1,000 mls @ 125 mls/hr 05/22/22 22:52 05/23/22 06:35 Sodium Chloride 0.9% IV 125 mls/hr .Q8H LIAT Administration Piperacillin Sod/Tazobactam 50 mls @ 12.5 mls/hr 05/23/22 03:00 05/23/22 11:58 Sod 3.375 gm/ Sodium Chloride IV 12.5 mls/hr Q8H LIAT Administration Protocol Vancomycin/PEG/NADA/Lysine/Water 1,250 mg in 250 mls @ 250 mls/hr 05/23/22 01:00 05/23/22 02:45 Vancocin IV Infused Q24H LIAT Infusion Metoclopramide HCl 5 mg 05/22/22 22:52 05/23/22 09:47 Metoclopramide 5 Mg/Ml Sdv 2 Ml IVP 5 mg Q6H PRN Administration NAUSEA AND VOMITING Metoprolol Tartrate 100 mg 05/22/22 09:00 05/23/22 09:47 Metoprolol Tartrate 50 Mg Tablet PO 100 mg Q12H LIAT Administration Pantoprazole Sodium 40 mg 05/22/22 22:52 05/23/22 11:58 Pantoprazole 40 Mg Sdv IVP 40 mg Q12H LIAT Administration Ropinirole HCl 0.25 mg 05/22/22 22:52 05/23/22 09:47 Ropinirole 0.25 Mg Tablet PO 0.25 mg DAILY LIAT Administration Sucralfate 1 gm 05/23/22 07:00 05/23/22 07:15 Sucralfate 1 Gm Tablet PO 1 gm BIDAC LIAT Administration PFSH Acute PFSH: Medical History Anxiety and depression ASHD (arteriosclerotic heart disease) Cataracts, bilateral CKD (chronic kidney disease) Diabetes Diabetic neuropathy Fibromyalgia Hyperlipidemia Hypertension Insomnia Migraine Surgical History (Updated 05/23/22 @ 12:47 by Andrzej Jones MD) H/O angioplasty H/O carpal tunnel repair H/O: hysterectomy History of cholecystectomy Family History Other Diabetes Hypertension Social History Smoking and tobacco status: never smoked Second hand smoke exposure: No Alcohol intake: never Adopted: No Caregiver/support person: Yes (spouse) Lives independently: Yes Household members: spouse Marital status: service: No Current occupational status: retired History of recent travel: No Current gender identity: Female Special vandana needs: No Agree to transfusion: Yes Vitals/I&O/Wt Last Vital Signs Temp 98.4 F 05/22/22 16:08 Pulse 109 H 05/23/22 04:43 Resp 19 H 05/23/22 11:59 BP 109/60 05/23/22 04:43 Pulse Ox 95 05/23/22 11:59 O2 Del Method 05/23/22 04:43 05/22/22 05/23/22 05/23/22 22:59 06:59 14:59 Intake Total 1000 / 1000 2250 / 3250 50 / 50 Balance 1000 / 1000 2250 / 3250 50 / 50 Weight last 48 hrs Weight 155 lb Physical Exam Const: COMMON NORMALS: patient oriented x3 and alert; apparent distress and negative for healthy appearing GENERAL APPEARANCE: well kempt and well developed ORIENTATION/CONSCIOUSNESS: not confused HENMT: COMMON NORMALS: normocephalic HEAD & SCALP: normal to inspection and normocephalic Eye: COMMON NORMALS: conjunctivae normal and no scleral icterus CONJUNCTIVA: Yes conjunctivae normal Neck/C-Spine: COMMON NORMALS: full ROM Lymph: LYMPHATIC: no lymphadenopathy noted and no lymphedema noted Chest: OTHER: Normal chest movements with respiration Resp: COMMON NORMALS: normal respiratory effort EFFORT & INSPECTION: No labored and No Actively coughing Cardio: COMMON NORMALS: regular rate and regular rhythm RATE: regular rate RHYTHM: regular rhythm GI: COMMON NORMALS: Soft to palpation PALPATION: Yes Soft to palpation OTHER: Left lower quadrant tenderness. Some guarding. No CVA tenderness or left upper quadrant tenderness on exam : COMMON NORMALS: Yes no CVA tenderness BLADDER/KIDNEY EXAM: Yes no CVA tenderness EXTERNAL FEMALE EXAM: Yes normal appearance of the urethra, No erythema, No urethral discharge and No lesion OTHER: Bladder nondistended. No CVA tender Normal urethral meatus. Atrophic external female genitalia. No obvious discharge or prolapse Back/Pelvis: COMMON NORMALS: no CVA tenderness Extremity: COMMON NORMALS: no clubbing, cyanosis or edema OTHER: No severe lower extremity edema. Neuro: COMMON NORMALS: patient oriented x3 SENSORIUM/ORIENTATION: Yes alert Psych: COMMON NORMALS: mental status grossly normal APPEARANCE: Yes grossly normal and Yes well kempt ATTITUDE: Yes calm and Yes engaged MEMORY/COGNITION: Yes memory grossly intact INSIGHT: Good insight present (Psych) JUDGEMENT: Good judgement present (Psych) Skin: COMMON NORMALS: no rashes or lesions noted and no jaundice GENERAL SKIN EXAM: no rashes or lesions noted Data : 05/23/22 09:15 05/23/22 05:40 Micro: Microbiology 05/22/22 23:20 Blood Culture - Preliminary Blood SPECIMEN COLLECTED 05/22/22 23:18 Blood Culture - Preliminary Blood SPECIMEN COLLECTED A&P Assessment and plan (1) Abdominal pain: Etiology not completely clear. Left lower quadrant primarily. No obvious CVA or left upper quadrant component. Differential diagnosis includes stone pain from her left UPJ stone despite evidence of no severe obstruction versus GI source. She does have a history of bowel obstruction but no clear evidence of obstruction on CT scan. Status: Acute (2) Intractable vomiting with nausea: Status: Acute (3) Left renal stone: Bilateral renal calculi. Current stone of interest is located at the left UPJ and is just about 1.5- 2.0 cm Status: Acute (4) Pyuria: Only 5-10 white cells. Nitrite negative. Culture pending. Status: Acute Plan 1. To the operating room for cystoscopy, LEFT: Retrograde, stent She is allergic to IV contrast. 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
--- NOTE | 2022-05-23 12:47 | P.ANESASSM_ITS ---
Pre-Anesthetic Assessment Height/Weight: Height 1.57 m Weight 70.307 kg Temp Pulse Resp BP Pulse Ox O2 Del Method O2 Flow Rate 99.1 F 103 H 17 167/99 98 2.0 05/23/22 12:35 05/23/22 12:35 05/23/22 12:35 05/23/22 12:35 05/23/22 12:35 05/23/22 12:35 05/23/22 12:35 Operation Date: 05/23/22 12:45 Proposed Procedures p Cystoscopy(Not Applicable) - Andrzej Jones MD s Ureteral Stent Placement(Left) - Andrzej Jones MD s Retrograde Pyelogram(Left) - Andrzej Jones MD Familial anesthetic complications: none Was Beta Tom taken within 24 hours: Yes Was Clonidine taken within 24 hours: N/A Last intake: Intake Last Liquid Date 05/22/22 Last Liquid Time 08:00 Last Solid Date 05/21/22 Last Solid Time 17:00 Social No alcohol and No tobacco last meal 2 days ago, took regular meds this AM with sip of water Exam alert and oriented x 3 Airway Submandibular: within normal limits Cervical ROM: within normal limits Mallampati: Class III Dentition: false History/ROS No significant history except as noted Pulmonary None reported CV/HEM Coronary Artery Disease (3 stents ) and Hypertension Chronic Renal Insufficiency Hepatic None reported GI Gastroesophageal Reflux Disease Metabolic Diabetes Mellitus and Morbid Obesity [facility] None reported Neuropsych None reported Anesthetic Plan ASA status: 3 Anesthesia: Anesthesia Evaluation and General Risk of > 500 ml blood loss (7ml/kg in children): No Medications/Allergies Home Medications Medication Instructions Recorded Confirmed Last Taken Type aspirin 81 mg tablet,delayed 81 mg PO BEDTIME 10/28/19 05/23/22 Unknown History release (Adult Low Dose Aspirin) blood-glucose meter #1 ea 11/19/19 05/23/22 Unknown Rx insulin aspart U-100 100 unit/mL 5 unit (0.05 mL) SUBCUT TID 30 09/26/21 05/23/22 Unknown Rx (3 mL) subcutaneous pen (Novolog days #4.5 mL Flexpen U-100 Insulin aspart) hydrocodone 10 mg-acetaminophen 1 tab PO Q8H PRN pain 30 days #90 03/26/22 05/23/22 Unknown Rx 325 mg tablet tabs blood sugar diagnostic (Accu-Chek #100 ea 05/09/22 05/23/22 Unknown Rx Merced Plus test strp) pen needle, diabetic 32 gauge x ##100 05/18/22 05/23/22 Unknown Rx (TRUEplus Pen Needle) insulin detemir U-100 100 unit/mL 80 unit SUBCUT BID 05/23/22 05/23/22 Unknown History (3 mL) subcutaneous pen (Levemir FlexTouch U-100 Insulin) liraglutide 0.6 mg/0.1 mL (18 mg/3 1.2 mg SUBCUT QAM 05/23/22 05/23/22 Unknown History mL) subcutaneous pen injector (Victoza 3-Moris) metoprolol tartrate 100 mg tablet 100 mg PO Q12H 05/23/22 05/23/22 Unknown History multivitamin 1 tab PO QAM 05/23/22 05/23/22 Unknown History ramipril 5 mg capsule 5 mg PO BEDTIME 05/23/22 05/23/22 Unknown History ropinirole 0.25 mg tablet 0.25 mg PO BEDTIME 05/23/22 05/23/22 Unknown History rosuvastatin 40 mg tablet 40 mg PO BEDTIME 05/23/22 05/23/22 Unknown History Allergies Allergy/AdvReac Type Severity Reaction Status Date / Time gabapentin Allergy hallucinati Verified 05/23/22 08:15 ons Iodinated Contrast Media Allergy Unknown Verified 05/23/22 08:15 nifedipine [From Procardia] Allergy Unknown Verified 05/23/22 08:15 prochlorperazine Allergy Unknown Verified 05/23/22 08:15 [From Compazine] Current Medications Generic Name Dose Route Start Last Admin Trade Name Freq PRN Reason Stop Dose Admin Aspirin 81 mg 05/22/22 22:52 05/22/22 23:53 Aspirin 81 Mg Ec Tablet PO 81 mg ONCE LIAT Administration Atorvastatin Calcium 80 mg 05/23/22 09:00 05/23/22 09:46 Atorvastatin 40 Mg Tablet PO 80 mg DAILY LIAT Administration Enoxaparin Sodium 40 mg 05/22/22 23:45 05/22/22 23:53 Enoxaparin 40 Mg/0.4 Ml Syringe SUBCUT 40 mg Q24H LIAT Administration Hydromorphone HCl 1 mg 05/22/22 22:52 05/23/22 11:59 Hydromorphone 1 Mg/Ml Inj 1 Ml IVP 1 mg Q2H PRN Administration pain Sodium Chloride 1,000 mls @ 125 mls/hr 05/22/22 22:52 05/23/22 12:38 Sodium Chloride 0.9% IV Infused .Q8H LIAT Infusion Piperacillin Sod/Tazobactam 50 mls @ 12.5 mls/hr 05/23/22 03:00 05/23/22 11:58 Sod 3.375 gm/ Sodium Chloride IV 12.5 mls/hr Q8H LIAT Administration Protocol Vancomycin/PEG/NADA/Lysine/Water 1,250 mg in 250 mls @ 250 mls/hr 05/23/22 01:00 05/23/22 02:45 Vancocin IV Infused Q24H LIAT Infusion Insulin Human Lispro 0 unit 05/23/22 08:00 05/23/22 12:37 Insulin Lispro 100 Unit/1 Ml SUBCUT Not Given TIDWM LIAT Protocol Metoclopramide HCl 5 mg 05/22/22 22:52 05/23/22 09:47 Metoclopramide 5 Mg/Ml Sdv 2 Ml IVP 5 mg Q6H PRN Administration NAUSEA AND VOMITING Metoprolol Tartrate 100 mg 05/22/22 09:00 05/23/22 09:47 Metoprolol Tartrate 50 Mg Tablet PO 100 mg Q12H LIAT Administration Pantoprazole Sodium 40 mg 05/22/22 22:52 05/23/22 11:58 Pantoprazole 40 Mg Sdv IVP 40 mg Q12H LIAT Administration Ropinirole HCl 0.25 mg 05/22/22 22:52 05/23/22 09:47 Ropinirole 0.25 Mg Tablet PO 0.25 mg DAILY LIAT Administration Sucralfate 1 gm 05/23/22 07:00 05/23/22 07:15 Sucralfate 1 Gm Tablet PO 1 gm BIDAC LITA Administration PFSH Anesthesia Medical History (Updated 05/23/22 @ 12:42 by Andrzej Jones MD) Anxiety and depression ASHD (arteriosclerotic heart disease) Cataracts, bilateral CKD (chronic kidney disease) Diabetes Diabetic neuropathy Fibromyalgia Hyperlipidemia Hypertension Insomnia Migraine Surgical History (Updated 05/23/22 @ 12:47 by Andrzej Jones MD) H/O angioplasty H/O carpal tunnel repair H/O: hysterectomy History of cholecystectomy Family History Other Diabetes Hypertension Social History Smoking and tobacco status: never smoked Second hand smoke exposure: No Alcohol intake: never Adopted: No Caregiver/support person: Yes (spouse) Lives independently: Yes Household members: spouse Marital status: service: No Current occupational status: retired History of recent travel: No Current gender identity: Female Special vandana needs: No Agree to transfusion: Yes Data Anesthesia : 05/23/22 09:15 05/23/22 05:40 Short CBC 05/22/22 05/23/22 Range/Units 16:56 09:15 WBC 11.9 H 12.2 H (4.0-10.0) 10^3/uL Hgb 13.3 10.3 L (11.5-15.3) g/dL Hct 44.2 33.0 L (37.0-47.0) % MCV 98.0 94.8 (81-99) fl Plt Count 303 252 (130-400) 10^3/cmm Neut % (Auto) 80.3 75.2 % Neut # (Auto) 9.55 H 9.16 H (1.8-7.7) 10^3/uL BMP 05/22/22 05/23/22 16:56 05:40 Sodium 139 135 L Potassium 3.5 4.2 Chloride 101 104 Carbon Dioxide 18 L 17 L BUN 21 19 Creatinine 1.2 H 1.2 H Glucose 205 H 242 H Calcium 9.3 7.6 L Cardiac Enzymes 05/23/22 Range/Units 05:40 Creatine Kinase 122 (26-192) U/L Liver Function 05/22/22 05/23/22 Range/Units 16:56 05:40 Total Bilirubin 0.4 0.5 (0.15-1.2) mg/dL AST 14 19 (0-32) U/L ALT 12 10 (0-33) U/L Alkaline Phosphatase 81 71 (35-105) IU/L Albumin 4.0 2.8 L (3.5-5.2) g/dL Urine 05/22/22 Range/Units 20:30 Urine Color Yellow (Yellow) Urine Appearance Hazy A (CLEAR) Urine pH 5 (5-7) Ur Specific [place] 1.020 (1.005-1.030) Urine Protein 2+ H (Negative) Urine Glucose (UA) 1+ H (Normal) Urine Ketones 1+ H (Negative) Urine Nitrate Negative (Negative) Urine Bilirubin Neg (Negative) Ur Leukocyte Esterase Negative (Negative) Urine RBC 0-4 H (0-2) /hpf Urine WBC 5-10 H (0-5) /hpf COVID Results 05/22/22 21:58 SARS-CoV-2 Ag (Rapid) Negative Coags 05/22/22 05/22/22 05/23/22 16:56 23:18 05:40 PT 13.10 INR 0.96 C-Reactive Protein 3.0 3.0 Microbiology 05/22/22 23:20 Blood Culture - Preliminary Blood SPECIMEN COLLECTED 05/22/22 23:18 Blood Culture - Preliminary Blood SPECIMEN COLLECTED Cardiac Studies: No Data to Display
[2022-05-23 12:48] LABS: Glucose Point of Care 249 mg/dL (70-110)
[2022-05-23] MEDS: sodium chloride 0.9% 1,000 ML 30 ML IV (12:50)
[2022-05-23] MEDS: ondansetron 2 mg/ML SDV 2 mL 4 MG IVP ×2 (12:54→19:46)
[2022-05-23] MEDS: iohexol 300 mg/mL 50 mL Btl (OR ONLY) XX (13:25)
--- NOTE | 2022-05-23 13:30 | PM.OP ---
Operative Report Date of procedure: May 23, 2022 Pre-op diagnosis: Left UPJ stone with refractory pain Post-op diagnosis: Same Post-op findings: Procedure done: 1. Cystoscopy, left retrograde ureteropyelogram, left ureteral stent Implants: 7 Maldivian by 24 cm double-pigtail stent without string Specimens removed/disposition: None Pathology: None Anesthesia: General Estimated blood loss: None Urine output: Not measured Complications: None Findings: No abnormality is distal to the left UVJ on retrograde. Large stone as expected the UVJ. No intravasation of retrograde ureteropyelogram Stent placed without difficulty Condition: Stable Disposition: PACU Brief History: Evelyn is a very pleasant 76-year-old white female who was admitted with severe left lower quadrant pain of unclear etiology. CT scan findings were pretty much normal except for a large stone in the left UPJ but not clearly obstructing. Urine did have some pyuria but no overt UTI or obstructive pyelonephritis. Lactate was elevated. I was consulted for further evaluation. Not sure that she has obstructive pyelonephritis or symptoms related to the stone but recommended consideration of a stent in the absence of any other clear-cut etiology of her symptoms. Procedure: After routine preoperative evaluation examination and obtaining of informed consent she was taken to the operating suite on 05/23/2022 where general anesthesia was administered without difficulty after appropriate timeout was performed, SCDs confirmed to be functioning, preoperative antibiotics administered, beta-arlette protocol confirmed. Prepped and draped in usual sterile fashion in dorsolithotomy position paying careful attention to avoiding pressure points. 21 Maldivian cystoscope with 30 degree lens was introduced into the urethra meatus and advanced into the bladder under videoscopy. The bladder was systematically examined and found to be within normal limits. No stones were seen. An 8 Maldivian cone-tip catheter was intubated into the left ureteral orifice and very gently contrast was injected in the distal ureter showing normal course and caliber up to the UPJ where a filling defect consistent with a stone was identified. There was partial filling of the renal pelvis and calyceal system but no evidence of severe obstructive changes. There is no intravasation of contrast into the pyelovenous system. Flexible tip guidewire was then easily advanced up the left ureter bypassing the stone curling in the renal pelvis and then a 7 Maldivian by 24 cm double-pigtail stent was advanced over the guidewire through the cystoscope into appropriate position as confirmed with fluoroscopy and cystoscopy. Bladder was drained and the procedure was completed after confirmation of the stent draining well. She tolerated procedure well without complications and was awakened in the operating room and returned to the recovery room in stable condition. PLANS: 1. Transfer to the floor on admission status 2. Continue ongoing treatment. Can plan for delayed treatment of the stone pending recovery from other medical issues. This would be done on an outpatient basis while after discharge.
--- NOTE | 2022-05-23 13:31 | P.PN_ITS ---
Subjective Subjective: Is n.p.o. No active complaint Dr. Jones to see her today Going for the stent placement She is awake and alert No active emesis looks dehydrated Vitals/I&O/Wt Last Vital Signs Temp 99.1 F 05/23/22 12:35 Pulse 103 H 05/23/22 12:35 Resp 17 05/23/22 12:35 BP 167/99 05/23/22 12:35 Pulse Ox 98 05/23/22 12:35 O2 Del Method 05/23/22 12:35 O2 Flow Rate 2.0 05/23/22 12:35 05/22/22 05/23/22 05/23/22 22:59 06:59 14:59 Intake Total 1000 / 1000 2250 / 3250 1050 / 1050 Balance 1000 / 1000 2250 / 3250 1050 / 1050 Weight last 48 hrs Weight 70.307 kg Physical Exam Narrative: Pleasant cooperative female Satting well on room air Nonfocal neuro exam Abdomen soft No CVA tenderness Looks dehydrated Nonfocal neuro exam Awake and alert Urinary Catheter Management: Cisneros Latex: Cath Placed During This Visit: yes Urinary Catheter Date of Insertion: 05/23/22 Urinary Catheter Time of Insertion: 13:29 Data : 05/23/22 09:15 05/23/22 05:40 Micro: Microbiology 05/22/22 23:20 Blood Culture - Preliminary Blood SPECIMEN COLLECTED 05/22/22 23:18 Blood Culture - Preliminary Blood SPECIMEN COLLECTED A&P Assessment and plan (1) Fibromyalgia: Status: Acute (2) Insomnia: Status: Acute (3) Migraine: Status: Acute Qualifiers: Intractability: not intractable Migraine type: without aura Status migrainosus presence: without status migrainosus Qualified Code(s): G43.009 - Migraine without aura, not intractable, without status migrainosus (4) Diabetic peripheral neuropathy: Status: Acute (5) Gastroparesis: Status: Acute (6) Diabetes: Status: Acute Qualifiers: Diabetes mellitus complication status: without complication Diabetes mellitus fare collector insulin use: with fare collector use Diabetes mellitus type: type 2 Qualified Code(s): E11.9 - Type 2 diabetes mellitus without complications; Z79.4 - skilled nursing (current) use of insulin (7) Left renal stone: Status: Acute Plan Left lower quadrant pain Likely related to UPJ stone Dr. Jones to take her to the OR today She is n.p.o. right now We will start her DVT prophylaxis and diet after her procedure Continue antibiotics She is DNR/DNI Continue IV fluids, clinically looks dehydrated Might discontinue vancomycin by tomorrow Continue GI protection with Protonix and Carafate Attestations Medical Necessity Statement*: Continue medical management Time Spent in Patient Care: 30 Coding Level of Care Code Acute [place] [employer] for [facility] Fwd Diagnoses Fibromyalgia M79.7 Insomnia G47.00 Migraine G43.009 Intractability: not intractable Migraine type: without aura Status migrainosus presence: without status migrainosus Diabetic peripheral neuropathy E11.42 Gastroparesis K31.84 Diabetes E11.9; Z79.4 Diabetes mellitus complication status: without complication Diabetes mellitus fare collector insulin use: with [facility] use Diabetes mellitus type: type 2 Left renal stone N20.0
--- NOTE | 2022-05-23 14:05 | SUR.PHASEI ---
1340 PT TO PACU SLEEPY WITH GOOD RESP, MONITOR SR NO ECTOPY NOTED IV#22 TO RT HAND WITH NS 600ML UP AT KVO RATE PER GRAVITY, PT ID BRACELET TO LT WRIST , PT ID'D WITH 2 IDENTIFIERS, PT ABDOMEN SOFT, PT HAS MORALES CATHETER WITH CLEAR URINE NOTED TO TUBING AND BAG, 1410 PT AWAKE ALERT ABDOMEN REMAINS SOFT WITH MORALES PATENT OF CLEAR URINE TO TUBING AND BAG, MONITOR SR AND UNCHANGED PT TAKING OCCASIONAL ICE CHIP.
[2022-05-23 14:30] LABS: Glucose Point of Care 274 mg/dL (70-110)
--- NOTE | 2022-05-23 14:56 | SUR.PHASEI ---
PT TO FLOOR PER BED WITH FAMILY WALKING UP WITH PT , AND DAUGHTER, PT AWAKE ALERT TALKATIVE, ABDOMEN REMAINS SOFT AND NON TENDER, MORALES PATENT , STATLOCK TO RT INNER THIGH, BILAT SCDS ON, HANDOFF AT BEDSIDE ON TH FLOOR TO DANIELLA RN NURSE INFORMED OF PT BLOOD GLUCOSE 274 AND NOT TREATED IN PACU, PER DR ARRIETA PT IS ON SLIDING SCALE ON FLOOR , AND TO MAKE SURE PT EATS ON FLOOR BEFORE TREATING GLUCOSE LEVEL.
[2022-05-23 17:09] LABS: Glucose Point of Care 303 mg/dL (70-110)
--- NOTE | 2022-05-23 18:07 | ANE.PACU2 ---
Inpatient post-anesthesia follow up: Airway intact: Yes Vital signs: Temperature 98.3 F Pulse Rate 104 Respiratory Rate 18 Blood Pressure 159/84 Pulse Oximetry 91 Oxygen Delivery Me thod Room Air Oxygen Flow Rate 8 Fraction of Inspir ed Oxygen Hydration adequate: Yes Nausea and vomiting: No Pain level: 1 Mental status: Baseline
[2022-05-23] MEDS: lactated ringers 500 ML 999 ML IV (18:17)
[2022-05-23] MEDS: insulin lispro 100 unit/1 mL SUBCUT (18:36)
[2022-05-23] MEDS: morphine 4 mg/mL SDV 1 mL 2 MG IVP (19:46)
--- NOTE | 2022-05-23 21:34 | PC.NURSE ---
Dr. Heredia notified that patient has blood-tinged urine in marcum. Verified to give Lovenox that is due. Also notified that patient is complaining of pain stating that is was not relieved by Morphine.
[2022-05-23] MEDS: enoxaparin 40 mg/0.4 mL Syringe SUBCUT (21:40)
[2022-05-23 22:52] LABS: Glucose Point of Care 264 mg/dL (70-110)
[2022-05-24] VITALS (13 sets, daily range): BP systolic 108–157; BP diastolic 62–80; PULSE 70–97; RESP 12–20; TEMP 36.8–37.1; O2SAT 92–98
[2022-05-24] MEDS: vancomycin 1,250 MG/250 ML PIGGYBACK 250 MG IV (00:16)
[2022-05-24] MEDS: piperacillin-tazobactam 3.375 GM in sodium chloride 0.9% (plus) 50 ML IV ×2 (02:31→10:58)
--- NOTE | 2022-05-24 02:34 | PC.NURSE ---
Addendum entered by Cecile Rey RN 05/24/22 03:04: Patient c/o nausea and abdominal pain at beginning of shift. Patient states that she is not having any nausea or pain at this time. Original Note: At beginning of shift, patient pink/bloody tinged urine. Urine now appears to be a light deion color.
[2022-05-24 03:03] LABS: Lactate (Lactic Acid level) 1.1 mmol/L (0.5-2.2)
[2022-05-24 03:11] LABS: Basophils % 0.2 %; Hematocrit 32.4 % (37.0-47.0); Lymphocytes # 1.4 10^3/uL (0.8-4.8); Lymphocytes % 11.9 %; Mean Corpuscular HGB Conc 30.9 g/dL (30.0-36.0); Mean Corpuscular Hemoglobin 29.3 pg (28.0-34.0); Mean Platelet Volume 11.2 fL (7.4-10.4); Monocytes # 0.4 10^3/uL (0.2-0.9); Monocytes % 3.2 %; Neutrophils # 9.78 10^3/uL (1.8-7.7); Neutrophils % 83.9 %; Nucleated Red Blood Cells % 0 %; Platelet Count 230 10^3/cmm (130-400); Red Blood Count 3.41 10^6/uL (4.1-5.3); Red Cell Distribution Width 13.2 % (12.1-15.1); White Blood Count 11.7 10^3/uL (4.0-10.0)
[2022-05-24 03:53] LABS: Alanine Aminotransferase 11 U/L (0-33); Albumin Level 3.4 g/dL (3.5-5.2); Alkaline Phosphatase 68 IU/L (35-105); Anion Gap 14.7 (5-19); Aspartate Amino Transferase 13 U/L (0-32); Blood Urea Nitrogen 18 mg/dL (8-23); Calcium 7.6 mg/dL (8.5-10.5); Carbon Dioxide 22 mmol/L (22-29); Chloride 105 mmol/L (98-107); Creatine Phosphokinase 162 U/L (26-192); Globulin 2.2 g/dL (1.3-4.6); Glucose 279 mg/dL (65-115); Magnesium 1.8 mg/dL (1.7-2.3); Osmolality Calculated 298 mOsm/kg (285-295); Phosphorus 2.7 mg/dL (2.5-4.5); Potassium 3.7 mmol/L (3.5-5.1); Sodium 138 mmol/L (136-145); Total Bilirubin 0.6 mg/dL (0.15-1.2); Total Protein 5.6 g/dL (6.6-8.7)
[2022-05-24 03:54] LABS: Procalcitonin 0.07 ng/mL (0-0.5)
--- NOTE | 2022-05-24 03:56 | PC.NURSE ---
Patient at this time states I'm starting to hurt again.
[2022-05-24] MEDS: HYDROmorphone 1 mg/mL INJ 1 mL IVP ×2 (04:01→08:58)
[2022-05-24] MEDS: ondansetron 2 mg/ML SDV 2 mL 4 MG IVP (04:01)
[2022-05-24 04:03] LABS: Creatinine Clr Calc Pharmacy 44.6472
[2022-05-24 06:12] LABS: Glucose Point of Care 252 mg/dL (70-110)
[2022-05-24 06:41] LABS: Bacillus cereus group Not Detected (NOT DETECT); Bacillus subtillis group Not Detected (NOT DETECT); Corynebacterium Not Detected (NOT DETECT); Cutibacterium acnes (P.acnes) Not Detected (NOT DETECT); Enterococcus Not Detected (NOT DETECT); Enterococcus faecalis Not Detected (NOT DETECT); Enterococcus faecium Not Detected (NOT DETECT); Lactobacillus species Not Detected (NOT DETECT); Listeria Not Detected (NOT DETECT); Listeria monocytogenes Not Detected (NOT DETECT); Micrococcus Not Detected (NOT DETECT); Pan Candida Not Detected (NOT DETECT); Pan Gram-Negative Not Detected (NOT DETECT); Staphylococcus epidermidis Detected (NOT DETECT); Staphylococcus lugdunensis Not Detected (NOT DETECT); Staphylococcus species Detected (NOT DETECT); Streptococcus agalactiae Not Detected (NOT DETECT); Streptococcus anginosus group Not Detected (NOT DETECT); Streptococcus pneumoniae Not Detected (NOT DETECT); Streptococcus pyogenes Not Detected (NOT DETECT); Streptococcus species Not Detected (NOT DETECT); mecA Not Detected (NOT DETECT); mecC Not Detected (NOT DETECT)
[2022-05-24] MEDS: sucralfate 1 gm Tablet PO ×2 (08:59→17:09)
[2022-05-24] MEDS: atorvastatin 40 mg Tablet 80 MG PO (08:59)
[2022-05-24] MEDS: ropinirole 0.25 mg Tablet PO (08:59)
[2022-05-24] MEDS: metoprolol tartrate 50 mg Tablet 100 MG PO ×2 (08:59→20:49)
[2022-05-24] MEDS: insulin lispro 100 unit/1 mL SUBCUT ×3 (09:00→17:57)
[2022-05-24 11:13] LABS: Glucose Point of Care 239 mg/dL (70-110)
[2022-05-24] MEDS: pantoprazole 40 mg SDV IVP ×2 (11:17→22:54)
--- NOTE | 2022-05-24 11:40 | P.PN_ITS ---
Subjective Subjective: She is endorsing feeling better [place]-colored urine Slight pain in left lower quadrant however improved No fever Cultures negative She might be able to go home by tomorrow Vitals/I&O/Wt Last Vital Signs Temp 98.3 F 05/24/22 08:00 Pulse 93 05/24/22 08:00 Resp 16 05/24/22 08:58 BP 135/76 05/24/22 08:00 Pulse Ox 96 05/24/22 08:00 O2 Del Method 05/24/22 08:00 O2 Flow Rate 8 05/24/22 08:00 05/23/22 05/24/22 05/24/22 22:59 06:59 14:59 Intake Total 1979.167 / 3229.167 300 / 3529.167 980.833 / 980.833 Output Total 1550 / 1551 800 / 2351 Balance 429.167 / 1678.167 -500 / 1178.167 980.833 / 980.833 Weight last 48 hrs Weight 70.307 kg Physical Exam Narrative: Patient is resting comfortably Endorsing not feeling hungry breakfast tray at the bedside Family at the bedside Abdomen soft Euvolemic No active distress Satting well on room air S1, S2 Urinary Catheter Management: Cisneros Latex: Cath Placed During This Visit: yes Reason for Continuing Indwelling Catheter: Perioperative Use in Selected Surgeries Urinary Catheter Date of Insertion: 05/23/22 Urinary Catheter Time of Insertion: 13:29 Data : 05/24/22 02:41 05/24/22 02:41 Micro: Microbiology 05/23/22 05:04 Urine Culture - Final Urine Catheterized 05/22/22 23:18 Blood Culture - Preliminary Blood Staphylococcus epidermidis 05/22/22 23:20 Blood Culture - Preliminary Blood NEGATIVE TO DATE A&P Assessment and plan (1) Fibromyalgia: Status: Acute (2) Pyuria: Status: Acute (3) Left renal stone: Status: Acute (4) Leukocytosis: Status: Acute (5) Gastroparesis: Status: Acute (6) Diabetes: Status: Acute Qualifiers: Diabetes mellitus type: type 2 Diabetes mellitus mcfp insulin use: with intermediate accountant use Diabetes mellitus complication status: without complication Qualified Code(s): E11.9 - Type 2 diabetes mellitus without complications; Z79.4 - [facility] (current) use of insulin (7) Anxiety and depression: Status: Acute (8) Insomnia: Status: Acute Plan Status post ureteral stent placement 05/[address] Jones [place]-colored urine No active complaint Afebrile Cultures negative Leukocytosis without worsening She might be able to go home by tomorrow Lithotripsy outpatient? She is not feeling hungry however breakfast tray is at bedside Hyperglycemia noted Type 2 diabetes with gastroparesis Currently on consistent carb diet She is on insulin sliding scale De-escalate antibiotics to ceftriaxone Discontinue IV fluids No worsening of creatinine DNR/DNI I will cut back on her Dilaudid which is very high dose Attestations Medical Necessity Statement*: Discharge tomorrow Time Spent in Patient Care: 30 Coding Level of Care Code Acute [place] for [facility] Fwd Diagnoses Fibromyalgia M79.7 Pyuria R82.81 Left renal stone N20.0 Leukocytosis D72.829 Gastroparesis K31.84 Diabetes E11.9; Z79.4 Diabetes mellitus type: type 2 Diabetes mellitus mcfp insulin use: with intermediate accountant use Diabetes mellitus complication status: without complication Anxiety and depression F41.9; F32.9 Insomnia G47.00
[2022-05-24] MEDS: cefTRIAXone 1,000 MG in sodium chloride 0.9% (plus) 50 ML 100 MG IV (12:17)
[2022-05-24] MEDS: sennosides-docusate Tablet 1 TAB PO (12:18)
[2022-05-24] MEDS: oxyCODONE-APAP 5-325 mg Tablet 1 TAB PO ×3 (12:18→22:53)
[2022-05-24] MEDS: acetaminophen 325 mg Tablet 650 MG PO (14:59)
[2022-05-24 17:27] LABS: Glucose Point of Care 276 mg/dL (70-110)
[2022-05-24] MEDS: insulin glargine 100 units/1 mL 60 UNIT SUBCUT (17:57)
[2022-05-24 21:02] LABS: Glucose Point of Care 204 mg/dL (70-110)
[2022-05-24] MEDS: enoxaparin 40 mg/0.4 mL Syringe SUBCUT (22:54)
[2022-05-25] MEDS: vancomycin 1,250 MG/250 ML PIGGYBACK 250 MG IV (00:25)
[2022-05-25] MEDS: ondansetron 2 mg/ML SDV 2 mL 4 MG IVP (02:08)
--- NOTE | 2022-05-25 02:15 | PC.NURSE ---
Assumed care at this time. Received report from NATTY Moreno. Patient feeling sick to her stomach . Zofran given as ordered and documented.
[2022-05-25 04:00] VITALS: BP 171/68; PULSE 80; RESP 18; TEMP 36.7; O2SAT 95
[2022-05-25 05:04] LABS: Basophils # 0.1 10^3/uL (0.0-0.1); Basophils % 0.5 %; Eosinophils # 0.1 10^3/uL (0.0-0.8); Eosinophils % 1.4 %; Hemoglobin 11.7 g/dL (11.5-15.3); Lymphocytes # 2.7 10^3/uL (0.8-4.8); Lymphocytes % 26.7 %; Mean Corpuscular HGB Conc 33.4 g/dL (30.0-36.0); Mean Corpuscular Hemoglobin 30.2 pg (28.0-34.0); Mean Corpuscular Volume 90.2 fl (81-99); Mean Platelet Volume 10.9 fL (7.4-10.4); Monocytes # 0.6 10^3/uL (0.2-0.9); Monocytes % 6.1 %; Neutrophils # 6.56 10^3/uL (1.8-7.7); Neutrophils % 64.7 %; Nucleated Red Blood Cells % 0 %; Platelet Count 242 10^3/cmm (130-400); Red Blood Count 3.88 10^6/uL (4.1-5.3); Red Cell Distribution Width 12.9 % (12.1-15.1); White Blood Count 10.1 10^3/uL (4.0-10.0)
[2022-05-25 05:29] LABS: Alanine Aminotransferase 12 U/L (0-33); Albumin Level 3.5 g/dL (3.5-5.2); Alkaline Phosphatase 73 IU/L (35-105); Blood Urea Nitrogen 13 mg/dL (8-23); C Reactive Protein 4.8 mg/L (0.0-4.9); Calcium 8.2 mg/dL (8.5-10.5); Carbon Dioxide 25 mmol/L (22-29); Chloride 106 mmol/L (98-107); Globulin 2.8 g/dL (1.3-4.6); Glucose 119 mg/dL (65-115); Osmolality Calculated 297 mOsm/kg (285-295); Sodium 143 mmol/L (136-145); Total Bilirubin 0.5 mg/dL (0.15-1.2); Total Protein 6.3 g/dL (6.6-8.7)
[2022-05-25 05:32] LABS: Anion Gap 15.5 (5-19); Aspartate Amino Transferase 18 U/L (0-32); Creatinine Clr Calc Pharmacy 44.6472; Potassium 3.5 mmol/L (3.5-5.1)
[2022-05-25] MEDS: sucralfate 1 gm Tablet PO (06:00)
[2022-05-25 06:42] LABS: Glucose Point of Care 99 mg/dL (70-110)
[2022-05-25 08:00] VITALS: BP 161/81; PULSE 80; RESP 17; TEMP 37.1; O2SAT 95
[2022-05-25] MEDS: atorvastatin 40 mg Tablet 80 MG PO (10:08)
[2022-05-25] MEDS: insulin glargine 100 units/1 mL 60 UNIT SUBCUT (10:08)
[2022-05-25] MEDS: metoprolol tartrate 50 mg Tablet 100 MG PO (10:08)
[2022-05-25] MEDS: ropinirole 0.25 mg Tablet PO (10:09)
[2022-05-25] MEDS: sennosides-docusate Tablet 1 TAB PO (10:09)
[2022-05-25 10:11] VITALS: RESP 17; O2SAT 95
[2022-05-25] MEDS: oxyCODONE-APAP 5-325 mg Tablet 1 TAB PO (10:11)
[2022-05-25] MEDS: pantoprazole 40 mg SDV IVP (10:12)
--- NOTE | 2022-05-25 10:54 | PC.SOCIAL ---
Pg 2 IMM. Explained to pt Pg 2 IMM. No questions voiced. Provided pt a copy. Initialed, dated, & timed a copy & placed in chart.
--- NOTE | 2022-05-25 11:03 | P.DS_ITS ---
Discharge Providers Date of Admission: 05/22/22 21:39 Date of Discharge: May 25, 2022 Attending Provider at Admission: Gurdeep Heredia MD Attending Provider at Discharge: Abbey Jacinto MD Primary Care Provider: Jane Strickland MD Diagnoses at Discharge Discharge Diagnosis (1) Fibromyalgia: Status: Acute (2) Pyuria: Status: Acute (3) Left renal stone: Status: Acute (4) Leukocytosis: Status: Acute (5) Gastroparesis: Status: Acute (6) Diabetes: Status: Acute Qualifiers: Diabetes mellitus complication status: without complication Diabetes mellitus machine long goods helper insulin use: with senior living use Diabetes mellitus type: type 2 Qualified Code(s): E11.9 - Type 2 diabetes mellitus without complications; Z79.4 - longterm (current) use of insulin (7) Anxiety and depression: Status: Acute (8) Insomnia: Status: Acute Reason for Visit Reason for Visit: N/V/ ABDOMINAL PAIN Hospital Course Hospital Course 76-year female who presented to the hospital for worsening left lower quadrant pain, she was not diagnosed with sepsis, she remained afebrile, urine culture negative however abnormal UA with pyuria noted. Dr. Jones was consulted for her UPJ stone. Patient went for the cystoscopy, left retrograde ureteropyelogram, left ureteral stent on 05/23, she did well after her procedure, patient is stating that she is still experiencing mild pain however it is not completely gone. Dr. Jones will see her in the clinic after a week she will get antibiotic, opioids and antiemetics. Cultures negative to date. Please refer to Dr. Garcia's operating note for further details. She remained hyper glycemic because I decrease the dose of Lantus she was kept n.p.o. at the time of admission. She will resume 80 mg of Lantus twice a day at home. Her hemoglobin A1c 8.9. AMY improved. Creatinine at the time of discharge is 1, no fever, WBC count 10.1 blood culture showing staph epidermidis is a contamination. Physical Exam Narrative: Patient is awake and alert Euvolemic Abdomen soft No signs of peritonitis Saturating well on room air Family at the bedside Nonfocal neuro exam Urinary Catheter Management: Cisneros Latex: Cath Placed During This Visit: yes, but has since been removed by the nurse Reason for Continuing Indwelling Catheter: Does Not Meet Criteria Urinary Catheter Date of Insertion: 05/23/22 Urinary Catheter Time of Insertion: 13:29 Date Urinary Catheter Removed: 05/25/22 Time Urinary Catheter Discontinued: 08:45 Discharge Data Studies Completed and Pending Completed Studies During Hospitalization Category Date Time Status CT abdomen pelvis wo con [id number] Stat Cat Scan 05/22/22 16:22 Completed Pending at discharge Category Date Time Status Blood Culture Stat Lab 05/22/22 23:20 Results Vancomycin Trough Timed Lab 05/26/22 00:00 Ordered Radiology Impressions Abdomen/Pelvis CT 05/22/22 16:22 IMPRESSION: 1. Left ureteropelvic junction region 8.8 mm without hydronephrosis. 2. Several right kidney punctate nonobstructing calyceal stones. 3. Constipation. ADDENDUM: 05/22/222020 Findings and impression should read left ureteropelvic junction region 8.8 mm urinary calculus without hydronephrosis. Right-sided renal calyceal stones appears similar compared to prior exam and are nonobstructive measuring up to 4.3 mm. C-Arm Fluoroscopy 05/23/22 12:16 IMPRESSION: Left ureteral pyelography and left ureteral stent placement as above. Laboratory Results WBC 10.1 10^3/uL (4.0-10.0) H 05/25/22 04:50 RBC 3.88 10^6/uL (4.1-5.3) L 05/25/22 04:50 Hgb 11.7 g/dL (11.5-15.3) 05/25/22 04:50 Hct 35.0 % (37.0-47.0) L 05/25/22 04:50 MCV 90.2 fl (81-99) D 05/25/22 04:50 MCH 30.2 pg (28.0-34.0) 05/25/22 04:50 MCHC 33.4 g/dL (30.0-36.0) D 05/25/22 04:50 RDW 12.9 % (12.1-15.1) 05/25/22 04:50 Plt Count 242 10^3/cmm (130-400) 05/25/22 04:50 MPV 10.9 fL (7.4-10.4) H 05/25/22 04:50 Neut % (Auto) 64.7 % 05/25/22 04:50 Lymph % (Auto) 26.7 % 05/25/22 04:50 [place] % (Auto) 6.1 % 05/25/22 04:50 Eos % (Auto) 1.4 % 05/25/22 04:50 Baso % (Auto) 0.5 % 05/25/22 04:50 Neut # (Auto) 6.56 10^3/uL (1.8-7.7) 05/25/22 04:50 Lymph # (Auto) 2.7 10^3/uL (0.8-4.8) 05/25/22 04:50 [place] # (Auto) 0.6 10^3/uL (0.2-0.9) 05/25/22 04:50 Eos # (Auto) 0.1 10^3/uL (0.0-0.8) 05/25/22 04:50 Baso # (Auto) 0.1 10^3/uL (0.0-0.1) 05/25/22 04:50 Nucleated RBC % (auto) 0 % 05/25/22 04:50 Nucleated RBCs # 0.0 /100WBC 05/25/22 04:50 PT 13.10 SECONDS (12.1-14.9) 05/22/22 23:18 INR 0.96 (0.8-1.2) 05/22/22 23:18 Sodium 143 mmol/L (136-145) 05/25/22 04:50 Potassium 3.5 mmol/L (3.5-5.1) 05/25/22 04:50 Chloride 106 mmol/L (98-107) 05/25/22 04:50 Carbon Dioxide 25 mmol/L (22-29) 05/25/22 04:50 Anion Gap 15.5 (5-19) 05/25/22 04:50 BUN 13 mg/dL (8-23) 05/25/22 04:50 Creatinine 1.0 mg/dL (0.5-0.9) H 05/25/22 04:50 GFR Calculation Not Reportable 05/25/22 04:50 Glucose 119 mg/dL (65-115) H 05/25/22 04:50 POC Glucose 99 mg/dL (70-110) 05/25/22 06:31 Estimat Average Glucose 209 05/22/22 23:18 Hemoglobin A1c 8.9 % (4.0-6.0) H 05/22/22 23:18 Calculated Osmolality 297 mOsm/kg (285-295) H 05/25/22 04:50 Lactic Acid 4.4 mmol/L (0.5-2.2) H* 05/22/22 19:40 Lactic Acid (Sepsis) 3.2 mmol/L (0.5-2.2) H 05/22/22 23:18 Lactate 1.1 mmol/L (0.5-2.2) 05/24/22 02:41 Calcium 8.2 mg/dL (8.5-10.5) L 05/25/22 04:50 Phosphorus 2.7 mg/dL (2.5-4.5) 05/24/22 02:41 Magnesium 1.8 mg/dL (1.7-2.3) 05/24/22 02:41 Total Bilirubin 0.5 mg/dL (0.15-1.2) 05/25/22 04:50 AST 18 U/L (0-32) 05/25/22 04:50 ALT 12 U/L (0-33) 05/25/22 04:50 Alkaline Phosphatase 73 IU/L (35-105) 05/25/22 04:50 Creatine Kinase 162 U/L (26-192) 05/24/22 02:41 C-Reactive Protein 4.8 mg/L (0.0-4.9) 05/25/22 04:50 Total Protein 6.3 g/dL (6.6-8.7) L 05/25/22 04:50 Albumin 3.5 g/dL (3.5-5.2) 05/25/22 04:50 Globulin 2.8 g/dL (1.3-4.6) 05/25/22 04:50 Triglycerides 121 mg/dL (0-150) 05/22/22 23:18 Cholesterol 135 mg/dL (0-200) 05/22/22 23:18 LDL Cholesterol, Calc 68 mg/dL (50-129) 05/22/22 23:18 HDL Cholesterol 43 mg/dL (60-100) L 05/22/22 23:18 LDL/HDL Ratio 1.58 RATIO (0.00-3.22) 05/22/22 23:18 Cholesterol/HDL Ratio 3.14 mg/dL (0.0-4.40) 05/22/22 23:18 Procalcitonin 0.07 ng/mL (0-0.5) 05/24/22 02:41 TSH 1.63 uIU/mL (0.27-4.20) 05/22/22 23:18 Free T4 1.41 ng/dL (0.82-1.77) 05/22/22 16:56 Urine Color Yellow (Yellow) 05/22/22 20:30 Urine Appearance Hazy (CLEAR) A 05/22/22 20:30 Urine pH 5 (5-7) 05/22/22 20:30 Ur Specific [place] 1.020 (1.005-1.030) 05/22/22 20:30 Urine Protein 2+ (Negative) H 05/22/22 20:30 Urine Glucose (UA) 1+ (Normal) H 05/22/22 20:30 Urine Ketones 1+ (Negative) H 05/22/22 20:30 Urine Blood 3+ (Negative) H 05/22/22 20:30 Urine Nitrate Negative (Negative) 05/22/22 20:30 Urine Bilirubin Neg (Negative) 05/22/22 20:30 Urine Urobilinogen Norm mg/dL (Negative) 05/22/22 20:30 Ur Leukocyte Esterase Negative (Negative) 05/22/22 20:30 Urine RBC 0-4 /hpf (0-2) H 05/22/22 20:30 Urine WBC 5-10 /hpf (0-5) H 05/22/22 20:30 Ur Squamous Epith Cells 5-10 /hpf (0-5) H 05/22/22 20:30 Amorphous Sediment 3+ /hpf 05/22/22 20:30 Urine Bacteria Trace /hpf (NONE) 05/22/22 20:30 Hyaline Casts 5-10 /lpf H 05/22/22 20:30 SARS-CoV-2 Ag (Rapid) Negative (Negative) 05/22/22 21:58 Vitals Last Vital Signs Temp 98.7 F 05/25/22 08:00 Pulse 80 05/25/22 08:00 Resp 17 05/25/22 10:11 BP 161/81 05/25/22 08:00 Pulse Ox 95 05/25/22 10:11 O2 Del Method 05/25/22 08:00 O2 Flow Rate 8 05/25/22 02:17 Discharge Plan Discharge Patient Disposition: Home Condition: Stable Prescriptions: New cefpodoxime 200 mg tablet 200 mg PO BID Qty: 10 0RF Rx Instructions: must administer with a meal/food ondansetron HCl 4 mg tablet 4 mg PO DAILY Qty: 10 0RF oxycodone-acetaminophen 5-325 mg tablet 1 tab PO Q8H PRN (Reason: pain) Qty: 10 0RF Continued aspirin [Adult Low Dose Aspirin] 81 mg tablet,delayed release (DR/EC) 81 mg PO BEDTIME Novolog Flexpen U-100 Insulin 100 unit/mL (3 mL) insulin pen 5 unit SUBCUT TID 30 Days Qty: 4.5 3RF hydrocodone-acetaminophen 10-325 mg tablet 1 tab PO Q8H PRN (Reason: pain) 30 Days Qty: 90 0RF Rx Instructions: Do not fill until 05/22/22 (DME) blood-glucose meter Kit See Rx Instructions .ROUTE .MEDSUPPLY Qty: 1 0RF Rx Instructions: TEST 4 TIMES PER DAY (DME) Accu-Chek [place] Plus test strp Strip See Rx Instructions .ROUTE .MEDSUPPLY Qty: 100 0RF Rx Instructions: TEST QID (DME) pen needle, diabetic [TRUEplus Pen Needle] 32 gauge x 5/32 needle See Rx Instructions .ROUTE .COMPLEX Qty: 100 1RF Dose Instruction: USE DIRECTED Rx Instructions: USE DIRECTED multivitamin Tablet 1 tab PO QAM metoprolol tartrate 100 mg tablet 100 mg PO Q12H ropinirole 0.25 mg tablet 0.25 mg PO BEDTIME ramipril 5 mg capsule 5 mg PO BEDTIME rosuvastatin 40 mg tablet 40 mg PO BEDTIME Levemir FlexTouch U-100 Insuln 100 unit/mL (3 mL) insulin pen 80 unit SUBCUT BID Victoza 3-Moris 0.6 mg/0.1 mL (18 mg/3 mL) pen injector 1.2 mg SUBCUT QAM Discharge Orders: Discharge Order (Routine); Ordered 05/25/22 Ordered By: Abbey Jacinto Referrals: Andrzej Jones MD [Physician] - 4-7 days (Dr. Jones's office should contact patient with appointment information.) Jane Strickland MD [Primary Care Provider] - 06/04/22 10:00 am Discharge Diet: Diabetic Discharge Activity: Increase activity as tolerated Patient Instructions: Cefpodoxime Proxetil (By mouth) (Vantin), Kidney Stones (DC), Opioid Safety Discharge Attestations Time Spent in Discharge Care*: less than 30 min Quality Metrics Clinical Quality Measures [ No reported AMI, CVA or VTE this stay] Coding Level of Care Code Acute Chg FW DC note Diagnoses Fibromyalgia M79.7 Pyuria R82.81 Left renal stone N20.0 Leukocytosis D72.829 Gastroparesis K31.84 Diabetes E11.9; Z79.4 Diabetes mellitus complication status: without complication Diabetes mellitus machine long goods helper insulin use: with machine long goods helper use Diabetes mellitus type: type 2 Anxiety and depression F41.9; F32.9 Insomnia G47.00
[2022-05-25 11:04] LABS: Glucose Point of Care 246 mg/dL (70-110)
[2022-05-25 12:00] VITALS: BP 147/86; PULSE 77; RESP 15; TEMP 36.9; O2SAT 94
[2022-05-25 12:48] VITALS: BP 147/86; PULSE 77; RESP 15; TEMP 36.9; O2SAT 94
== END 2022-05-25 13:16 | disposition home or self-care (01) | DRG 660 ==
LOC: ER 22:53 → ER IP 22:56 → MEDSURG 05-23 12:09
PROVIDERS: Family Medicine; Urology; Admitting Provider Family Medicine; Emergency Provider Emergency Medicine; PCP Family Medicine; Visit Provider Internal Medicine
PROC: 0TJB8ZZ Inspection of Bladder, Via Natural or Artificial Opening Endoscopic (ICD-10-PCS; CPT 52000; principal; 2022-05-23 12:45)
PROC: 0T778DZ Dilation of Left Ureter with Intraluminal Device, Via Natural or Artificial Opening Endoscopic (ICD-10-PCS; CPT 50605; 2022-05-23 12:45)
PROC: 0T778DZ Dilation of Left Ureter with Intraluminal Device, Via Natural or Artificial Opening Endoscopic (ICD-10-PCS; CPT 74420; 2022-05-23 12:45)
DX: N20.1 Calculus of ureter (principal); E87.2 Acidosis; E11.43 Type 2 diabetes mellitus with diabetic autonomic (poly)neuropathy; K31.84 Gastroparesis; E11.22 Type 2 diabetes mellitus with diabetic chronic kidney disease; I12.9 Hypertensive chronic kidney disease with stage 1 through stage 4 chronic kidney disease, or unspecified chronic kidney disease; N18.9 Chronic kidney disease, unspecified; E11.40 Type 2 diabetes mellitus with diabetic neuropathy, unspecified; E11.65 Type 2 diabetes mellitus with hyperglycemia; I25.10 Atherosclerotic heart disease of native coronary artery without angina pectoris; F41.8 Other specified anxiety disorders; Z87.442 Personal history of urinary calculi; M79.7 Fibromyalgia; E78.5 Hyperlipidemia, unspecified; K59.00 Constipation, unspecified; Z79.891 Long term (current) use of opiate analgesic; Z79.4 Long term (current) use of insulin; Z79.82 Long term (current) use of aspirin; G43.009 Migraine without aura, not intractable, without status migrainosus; G47.00 Insomnia, unspecified
CPT/HCPCS: 36415; 36416; 74176; 76000; 80053; 80061; 81001; 82550; 82962; 83036; 83605; 83735; 84100; 84145; 84439; 84443; 85025; 85610; 86140; 87040; 87086; 87150; 87205; 87426; 93005; 96372; 99285; C2625; C9113; J0330; J0696; J1100; J1170; J1630; J1650; J1815; J2270; J2405; J2543; J2704; J2765; J3010; J3370; J7030

== ENCOUNTER 2022-05-31 08:20 | Outpatient (CLI) | payer MEDICARE, OTHER, SELFPAY ==
--- NOTE | 2022-05-31 08:39 | XR_ITS ---
WS: [id number] KUB, AP view, 05/31/2022 Clinical Data: ureterolithiasis Comparison: None. Findings: No abnormal intraabdominal masses or calcifications are seen. There is no dilatated small bowel or ev idence of obstruction. The left ureteral stent is in good position. There is a large amount of fecal material throughout the colon. XR/XR KUB [id number] Impression: Left ureteral stent.
== END 2022-05-31 08:21 | disposition home or self-care (01) ==
LOC: RAD 08:22
PROVIDERS: PCP Family Medicine; Visit Provider Urology
DX: N20.1 Calculus of ureter (principal); Z96.0 Presence of urogenital implants
CPT/HCPCS: 74018; 81003; 99214

== ENCOUNTER 2022-06-04 05:41 | Day surgery (SDC) | payer MEDICARE, OTHER, SELFPAY ==
[2022-06-01 14:45] VITALS: BMI 25.6
[2022-06-04] VITALS (11 sets, daily range): BP systolic 107–173; BP diastolic 48–85; PULSE 62–91; RESP 10–21; TEMP 36.6–37.6; O2SAT 91–99
--- NOTE | 2022-06-04 | SCC_ITS ---
Procedure done: 1. Cystoscopy, removal of left ureteral stent 2. Left ureteroscopy laser lithotripsy stent placement 56.2 seconds of fluoroscopic guidance, for a cumulative dose of 13.41 mGy, was provided to Dr. Jones by the radiology department. C-arm images of the abdomen were saved for the patient's permanent record. [facility]
--- NOTE | 2022-06-04 05:45 | SC_ITS ---
WS: [id number] INTRAOPERATIVE TECHNIQUE: 3 Spot fluoroscopic images for intraoperative purposes. FLUOROSCOPY TIME: 56.2 seconds CLINICAL INFORMATION: Left ureteroscopy COMPARISON: None. FINDINGS: Intraoperative images for LEFT ureteroscopy with double-J ureteral stent placement SC/C-arm FL for Urology IMPRESSION: Images obtained for intraoperative purposes.
--- NOTE | 2022-06-04 06:00 | P.HPUD_ITS ---
Surgery/Procedure H&P Update DATE OF PROCEDURE: June 04, 2022 DATE H&P PERFORMED: 05/31/22 H&P UPDATE INFORMATION: I have reviewed H&P completed within last 30 days, I have examined patient prior to procedure, No changes to prior documentation and H&P is in [facility] EMR on date indicated PREOP DIAGNOSIS: Left UPJ stone status post emergency stenting PLANNED PROCEDURE: Operation Date: 06/04/22 07:00 Proposed Procedures p ]CYSTOSCOPY LEFT STENT REMOVAL RETROGRADE URETEROSCOPY LASER STENT [id number] [facility] [id number],N20.1(Not Applicable) - Andrzej Jones MD s Ureteral Stent Removal(Left) - MD andrea Garibay Retrograde Pyelogram(Left) - MD andrea Garibay Laser Lithotripsy(Left) - MD andrea Garibay Ureteral Stent Placement(Left) - Andrzej Jones MD
--- NOTE | 2022-06-04 06:17 | ANES.PREANE2 ---
Pre-Anesthetic Assessment Height/Weight: Height 1.57 m Weight 63.503 kg Temp Pulse Resp BP Pulse Ox O2 Del Method 99.7 F H 91 16 173/85 91 06/04/22 06:03 06/04/22 06:03 06/04/22 06:03 06/04/22 06:03 06/04/22 06:03 06/04/22 06:03 Preop Diagnosis: Left UPJ stone status post emergency stenting Operation Date: 06/04/22 07:00 Proposed Procedures p ]CYSTOSCOPY LEFT STENT REMOVAL RETROGRADE URETEROSCOPY LASER STENT 52148 MOD 26 07691 40022,N20.1(Not Applicable) - Andrzej Jones MD s Ureteral Stent Removal(Left) - MD andrea Garibay Retrograde Pyelogram(Left) - MD andrea Garibay Laser Lithotripsy(Left) - MD andrea Garibay Ureteral Stent Placement(Left) - Andrzej Jones MD Familial anesthetic complications: none Was Beta Tom taken within 24 hours: Yes Was Clonidine taken within 24 hours: N/A Last intake: Intake Last Liquid Date 06/03/22 Last Liquid Time 21:00 Last Solid Date 06/03/22 Last Solid Time 20:30 Social No alcohol and No tobacco Exam alert, oriented x 3, clear to auscultation bilaterally and regular rate & rhythm Airway Submandibular: within normal limits Cervical ROM: within normal limits Mallampati: Class II Dentition: false Pulmonary None reported CV/HEM Coronary Artery Disease (Hx of 3 stents ) and Hypertension EKG 05/22/22 Sinus tachycardia LEFT BUNDLE BRANCH BLOCK? [120+ ms QRS DURATION, 80+ ms Q/S IN V1/V2, 85+ ms R IN I/aVL/V5/V6] Compared to ECG 12/13/2017 05:47:31 Left bundle-branch block now present Myocardial infarct finding no longer present Electronically Signed On 05-22-2022 18:55:56 CDT by Sandip Sweet M.D. [id number] Chronic Renal Insufficiency Urolithiasis Hepatic None reported GI Gastroesophageal Reflux Disease Gastroparesis Metabolic Diabetes Mellitus [facility] [place] Fibromyalgia Neuropsych Anxiety, Depression, Headache (Migraine ) and Neuropathy Anesthetic Plan ASA status: 3 Anesthesia: Anesthesia Evaluation and General Other: We discussed risk and benefits of general anesthesia including PONV, sore throat (sometimes severe), corneal abrasion, positioning and peripheral nerve injuries, life threatening allergic reaction, post operative ICU admission requiring prolonged intubation, aspiration, stroke, heart attack, , and rare incidences of recall. Patient consents to proceed with general anesthesia. Plan GETA, RSI Medications/Allergies Home Medications Medication Instructions Recorded Confirmed Last Taken Type aspirin 81 mg tablet,delayed 81 mg PO BEDTIME 10/28/19 06/04/22 06/02/22 History release (Adult Low Dose Aspirin) blood-glucose meter #1 ea 11/19/19 06/04/22 Unknown Rx insulin aspart U-100 100 unit/mL 5 unit (0.05 mL) SUBCUT TID 30 09/26/21 06/04/22 06/03/22 Rx (3 mL) subcutaneous pen (Novo days #4.5 mL Flexpen U-100 Insulin aspart) hydrocodone 10 mg-acetaminophen 1 tab PO Q8H PRN pain 30 days #90 03/26/22 06/04/22 06/03/22 Rx 325 mg tablet tabs blood sugar diagnostic (Accu-Chek #100 ea 05/09/22 06/04/22 Unknown Rx Merced Plus test strp) pen needle, diabetic 32 gauge x ##100 05/18/22 06/04/22 Unknown Rx /32 (TRUEplus Pen Needle) insulin detemir U-100 100 unit/mL 80 unit SUBCUT BID 05/23/22 06/04/22 06/04/22 History (3 mL) subcutaneous pen (Levemir FlexTouch U-100 Insulin) liraglutide 0.6 mg/0.1 mL (18 mg/3 1.2 mg SUBCUT QAM 05/23/22 06/04/22 06/03/22 History mL) subcutaneous pen injector (Victoza 3-Moris) metoprolol tartrate 100 mg tablet 100 mg PO Q12H 05/23/22 06/04/22 06/03/22 17:00 History multivitamin 1 tab PO QAM 05/23/22 06/04/22 06/03/22 History ramipril 5 mg capsule 5 mg PO BEDTIME 05/23/22 06/04/22 06/03/22 History ropinirole 0.25 mg tablet 0.25 mg PO BEDTIME 05/23/22 06/04/22 06/03/22 History rosuvastatin 40 mg tablet 40 mg PO BEDTIME 05/23/22 06/04/22 06/03/22 History cefpodoxime 200 mg tablet 200 mg PO BID #10 tabs 05/25/22 06/04/22 06/03/22 Rx oxycodone-acetaminophen 5 mg-325 1 tab PO Q8H PRN pain #10 tabs 05/25/22 06/01/22 Unknown Rx mg tablet ondansetron HCl 4 mg tablet 4 mg PO PRN PRN Nausea 06/01/22 06/01/22 Unknown History Allergies Allergy/AdvReac Type Severity Reaction Status Date / Time gabapentin Allergy hallucinati Verified 06/01/22 14:40 ons Iodinated Contrast Media Allergy Unknown Verified 06/01/22 14:40 nifedipine [From Procardia] Allergy Unknown Verified 06/01/22 14:40 prochlorperazine Allergy Unknown Verified 06/01/22 14:40 [From Compazine] [facility] Anesthesia Medical History Abdominal pain Acidosis, lactic Anxiety and depression ASHD (arteriosclerotic heart disease) Cataracts, bilateral CKD (chronic kidney disease) Diabetes Diabetic neuropathy Diabetic peripheral neuropathy Fibromyalgia Gastroparesis Hyperlipidemia Hypertension Insomnia Intractable abdominal pain Intractable vomiting with nausea Left renal stone Leukocytosis Migraine Pyuria Ureterolithiasis Surgical History H/O angioplasty H/O carpal tunnel repair H/O: hysterectomy History of cholecystectomy Family History Mother , at age 65 Heart attack Father , at age 63 Heart attack Other Diabetes Hypertension Social History Smoking and tobacco status: never smoked Second hand smoke exposure: No Alcohol intake: never Adopted: No Caregiver/support person: Yes (spouse) Lives independently: Yes Household members: spouse Marital status: service: No Current occupational status: retired History of recent travel: No Current gender identity: Female Special vandana needs: No Agree to transfusion: Yes Data Anesthesia Cardiac Studies: No Data to Display
[2022-06-04 06:29] LABS: Glucose Point of Care 281 mg/dL (70-110)
--- NOTE | 2022-06-04 06:53 | PM.OP ---
Operative Report Date of procedure: June 04, 2022 Pre-op diagnosis: Obstructing left UPJ stone Post-op diagnosis: Obstructing left UPJ stone Procedure done: 1. Cystoscopy, removal of left ureteral stent 2. Left ureteroscopy laser lithotripsy stent placement Implants: Left ureteral stent (6 Latvian by 24 cm double-pigtail without string.) Specimens removed/disposition: Stone fragments Pathology: Left ureteral stone fragments Surgeon: Karen Estimated blood loss: Minimal Urine output: Not measured Complications: None Findings: Anesthesia: General Condition: Stable Disposition: PACU Stone found in the expected position. Easily accessed with flexible ureteroscope. Fragmented with 365 ?m thulium superpulse laser fiber Stent placed and left indwelling at the completion of procedure Brief History: Evelyn is a very pleasant 76-year-old white female with a history of recently diagnosed obstructive pyelonephritis with a large stone in the left UPJ area. She underwent emergency stenting followed by antibiotic therapy and is back now for attempt at definitive therapy endoscopically. The stone was not readily/easily identified on KUB. Procedure: After routine preoperative evaluation examination and obtaining of informed consent she was taken to the operating suite on 06/04/2022 where general anesthesia was administered without difficulty after appropriate timeout was performed, SCDs confirmed to be functioning, preoperative antibiotics administered, beta-arlette protocol confirmed. Prepped and draped in usual sterile fashion in dorsolithotomy position paying careful attention to avoiding pressure points. 21 Latvian cystoscope with 30 degree lens introduced into the urethra meatus and advanced into the bladder to videoscopy. The stent was in the expected position. No severe encrustation. Flexible tip guidewire easily advanced up the left ureter next to the stent and the stent was removed. Wire secured to the drapes as a safety wire. A second guidewire was passed and then a 34 cm ureteral access sheath was advanced over this guidewire to just below the left UPJ under fluoroscopic monitoring. Easily advanced to that point. A 7 Latvian offset semirigid ureteroscope was advanced up the left ureter through the sheath. The stone was encountered in its expected position. It could not be easily accessed with the rigid scope and for that reason the scope was removed and replaced with a flexible video ureteroscope. This allowed easy access to the stone. A 365 ?m thulium superpulse laser fiber was utilized to fragment the stone into mostly sand and very small fragments. Much of this was removed with a X catch basket at the completion of the fragmentation this sheath was backloaded onto the hub of the scope and the ureter was inspected as the scope was removed. No unusual findings were identified. The cystoscope was then backloaded over the guidewire and a 6 Latvian by 24 cm double-pigtail stent was advanced over the guidewire through the cystoscope into appropriate position as confirmed via fluoroscopy and cystoscopy The bladder was drained. The stent was confirmed to be functioning. The procedure was completed. She tolerated the procedure well without complications and was awakened in the operating room and returned to the recovery room in stable condition. PLANS: 1. Anticipate discharge from outpatient surgery 2. Follow-up next week for KUB and likely cystoscopy and stent removal
[2022-06-04] MEDS: sodium chloride 0.9% 1,000 ML 30 ML IV (06:57)
[2022-06-04] MEDS: levofloxacin-dextrose 5 % 500 MG/100 ML PREMIX 100 MG IV (06:59)
--- NOTE | 2022-06-04 07:02 | SUR.PHASEI ---
0658-8 units was pulled for patient, patient was moved to OR. Insulin was handedoff to FERNANDO Mar to be given in room
[2022-06-04 08:50] LABS: Glucose Point of Care 230 mg/dL (70-110)
[2022-06-04 08:51] LABS: Glucose Point of Care 244 mg/dL (70-110)
--- NOTE | 2022-06-04 08:55 | SUR.PHASEI ---
0840 PT TO PACU 4 SLEEPY BUT AWAKES TO VOICE, PT GLUCOSE CHECKED A 230 WITH DRILLING ENGINEER PRESENT NO FURTHER ORDERS GIVEN , SEE IV INSULIN GIVE EARLIER, MONITOR SR WITH NO ECTOPY NOTED, GOOD RESP NOTED ORAL AIRWAY OUT ON ARRIVAL, IV TO RT FOREARM #20 PATENT TO NS 100ML UP AT KVO RATE PER GRAVITY, ID BRACELET TO LT WRIST PT ID'D WITH 2 IDENTIFIERS, BILAT SCDS ON PT. ABDOMEN IS SOFT ,PT QUICKLY BACK TO SLEEP
--- NOTE | 2022-06-04 09:02 | SUR.PHASEI ---
PT ON RA TRIAL, PT VERY SLEEPY BUT AWAKES TO VOICE EASILY, PT ROLLED WITH ASSISTANCE TO RT SIDE , NO BRUISING NOTED TO LT SIDE ABDOMEN REMAINS SOFT, PT ENCOURAGED TO COUGH AND DEEP BREATH, PT TAKING OCC ICE CHIPS.
--- NOTE | 2022-06-04 09:10 | SUR.PHASEI ---
PT REMAINS SLEEPY BUT AWAKES TO VOICE EASILY, TAKING OCC ICE CHIPS AND COUGHS AND DEEP BREATHES TO COMMAND.
[2022-06-04] MEDS: HYDROcodone-acetaminophen 10-325 mg Tablet 1 TAB PO (09:25)
[2022-06-04] MEDS: ondansetron 2 mg/ML SDV 2 mL 4 MG IVP (09:56)
[2022-06-04] MEDS: haloperidol inj 5 mg/mL INJ 1 mL 1 MG IM (11:38)
[2022-06-04] MEDS: scopolamine 1.5 Patch 1 PATCH TRANSDERMA (11:39)
--- NOTE | 2022-06-04 12:38 | SUR.PHASEII ---
1035 zofran somewhat effective,pt sleeping off and on,family at bedside,1125 (anesthesiologist) here and pt still c/o nausea and daughter states that pt has had a psych drug for nausea in ER, haldol ordered and given at 1138 along with scopalamine patch placed behind left ear. 1220 pt resting without any retching or nausea noted
--- NOTE | 2022-06-04 13:56 | SUR.PHASEII ---
1315 family at bedside and pt requesting to go home,assisted pt up to side of bed and helped pt to dress herself,iv d/oren all intact and states feels much better v/s 97.8-73-16-135/72 sat 95% on room air
--- NOTE | 2022-06-04 14:45 | ANE.PACU2 ---
Inpatient post-anesthesia follow up: Airway intact: Yes Vital signs: Temperature 98 F Pulse Rate 76 Respiratory Rate 16 Blood Pressure 111/51 Pulse Oximetry 94 Oxygen Delivery Me thod Room Air Oxygen Flow Rate 8 Fraction of Inspir ed Oxygen Hydration adequate: Yes Nausea and vomiting: Yes (Improved with scopolamine and haloperidol ) Pain level: 1 Mental status: Baseline
[2022-06-08 15:23] LABS: Stone Source URETERAL STONE
== END 2022-06-04 13:30 | disposition home or self-care (01) ==
PROVIDERS: PCP Family Medicine; Visit Provider Urology
PROC: 0TJB8ZZ Inspection of Bladder, Via Natural or Artificial Opening Endoscopic (ICD-10-PCS; CPT 52000; principal; 2022-06-04 07:00)
PROC: (CPT 52310; 2022-06-04 07:00)
PROC: (CPT 52356; 2022-06-04 07:00)
PROC: (CPT 50605; 2022-06-04 07:00)
DX: N20.2 Calculus of kidney with calculus of ureter (principal); K21.9 Gastro-esophageal reflux disease without esophagitis; M79.7 Fibromyalgia; Z79.82 Long term (current) use of aspirin; I25.10 Atherosclerotic heart disease of native coronary artery without angina pectoris; E11.42 Type 2 diabetes mellitus with diabetic polyneuropathy; E11.22 Type 2 diabetes mellitus with diabetic chronic kidney disease; I12.9 Hypertensive chronic kidney disease with stage 1 through stage 4 chronic kidney disease, or unspecified chronic kidney disease; N18.9 Chronic kidney disease, unspecified; E78.5 Hyperlipidemia, unspecified
CPT/HCPCS: 52356; 36416; 76000; 82365; 82962; 88300; C2625; J1100; J1630; J1956; J2370; J2405; J2704; J2710; J3010; J3490; J7030

== ENCOUNTER 2022-06-06 17:32 | Inpatient (IN) | payer MEDICARE, OTHER, SELFPAY ==
[2022-06-06 17:38] VITALS: BP 187/105; PULSE 134; RESP 18; TEMP 36.4; O2SAT 98; BMI 32.0
--- NOTE | 2022-06-06 17:55 | XRR_ITS ---
PROCEDURE INFORMATION: Exam: XR Chest Exam date and time: 06/06/2022 6:05 PM Age: 76 years old Clinical indication: Chest wall pain; Additional info: Cp TECHNIQUE: Imaging protocol: Radiologic exam of the chest. Views: 1 view. COMPARISON: CR Chest 1 [place] [id number] 01/06/2018 6:45 AM FINDINGS: Lungs: Stable chronic atelectasis or scar in the left lung base. Calcified granuloma in the right upper lung. The lungs are otherwise clear. No consolidation. Pleural spaces: Unremarkable. No pleural effusion. No pneumothorax. Heart/Mediastinum: Unremarkable. No cardiomegaly. Bones/joints: Resection of the distal right clavicle. XR/XR chest 1V portable [id number] IMPRESSION: No acute finding.
--- NOTE | 2022-06-06 17:55 | ECG_ITS ---
[facility] Test Date: 2022-06-06 Pat Name: Evelyn Farley Department: Room: Gender: Female [employer] Work[employer]: : 1945 Requested By: Bianca Liao Order Number: [id number] Beverley MD: Christine Sepulveda M.D. Measurements Intervals [place] Rate: 134 P: 73 SD: 89 QRS: 5 QRSD: 121 T: 152 QT: 327 QTc: 489 Interpretive Statements SINUS TACHYCARDIA WITH SHORT SD INTERVAL MODERATE INTRAVENTRICULAR CONDUCTION DELAY [110+ ms QRS DURATION] ST DEVIATION AND MODERATE T-WAVE ABNORMALITY, CONSIDER LATERAL ISCHEMIA [-0.1+ mV T-WAVE IN I/aVL/V5/V6] Compared to ECG 05/22/2022 16:37:36 Short SD interval now present Intraventricular conduction delay now present T-wave abnormality now present Possible ischemia now present Left bundle-branch block no longer present Electronically Signed On 06-08-2022 6:26:56 CDT by Christine Sepulveda M.D. [id number]
--- NOTE | 2022-06-06 17:55 | CTR_ITS ---
PROCEDURE INFORMATION: Exam: CT Abdomen And Pelvis Without Contrast Exam date and time: 06/06/2022 7:05 PM Age: 76 years old Clinical indication: Abdominal pain; Flank; Left lower quadrant (llq); Additional info: Abd pain, left ureteral stent placement Saturday. Pain increasing. TECHNIQUE: Imaging protocol: Computed tomography of the abdomen and pelvis without contrast. Radiation optimization: All CT scans at this facility use at least one of these dose optimization techniques: automated exposure control; mA and/or kV adjustment per patient size (includes targeted exams where dose is matched to clinical indication); or iterative reconstruction. COMPARISON: CT abdomen pelvis w con* [id number] 05/22/2022 7:11 PM RADIATION DOSE METRICS: Total DLP (mGy-cm): 482.37 FINDINGS: Tubes, catheters and devices: Left ureteral stent with proximal pigtail in the left renal pelvis and distal pigtail in the urinary bladder. Lungs: Mild atelectasis or scarring in the lung bases. Pleural spaces: Trace right pleural effusion. Heart: Coronary artery calcifications. Diaphragm: Hiatal hernia. Liver: Normal. No mass. Gallbladder and bile ducts: The gallbladder is not visualized and may be surgically absent. Mild chronic dilatation of the extrahepatic bile ducts is most likely reservoir effect. Pancreas: Atrophic pancreas. Spleen: Normal. No splenomegaly. Adrenal glands: Normal. No mass. Kidneys and ureters: Chronic cortical scar in the posterior right kidney with dystrophic calcifications. Multiple nonobstructing right renal calculi measuring up to 5 mm. Trace left hydronephrosis with periureteral fat stranding. Stomach and bowel: Moderate stool in the transverse through distal colon and rectum. No wall thickening. The small bowel is unremarkable. No obstruction. Appendix: No evidence of appendicitis. Intraperitoneal space: Mild edema within the central mesentery with trace fluid in the left pericolic gutter and pelvis. No free peritoneal air. Vasculature: Arterial calcifications. No aneurysm. Lymph nodes: Unremarkable. No enlarged lymph nodes. Urinary bladder: Unremarkable as visualized. Reproductive: The uterus and ovaries are absent. Bones/joints: Unremarkable. No acute fracture. Soft tissues: Skin thickening and subcutaneous fat stranding in the anterior abdominal wall. Injection granulomas in the buttock. CT/CT abdomen pelvis wo con [id number] IMPRESSION: 1. Removal of the previous left renal calculus with ureteral stent placement and trace left hydronephrosis. Fat stranding around the left renal pelvis and ureter could indicate infection of the collecting system. Clinical correlation recommended. 2. Stool volume in the colon could indicate constipation. 3. Right renal calculi. 4. Cellulitis versus multiple medication injection sites in the anterior abdominal wall.
--- NOTE | 2022-06-06 17:58 | ED_ITS ---
HPI - Abdominal Pain General: Chief Complaint: Abdominal Pain Stated Complaint: cp, abdomen pain Time Seen by Provider: 06/06/22 17:37 Source: patient and EMS Mode of arrival: EMS Limitations: no limitations History of Present Illness: 76-year-old female states she been having diffuse abdominal pain since Saturday states pain is sharp in nature rates it a 6 out of 10 she had some radiation into her chest she has had vomiting as well. Patient has an elevated blood sugar here she denies any worsening proving factors. Denies any burning with urination denies any blood in her stool. Associated Symptoms: Denies chills, diarrhea, dysuria, fever(s), nausea and vomiting Review of Systems Const: Denies: fever(s), chills, body aches or change in appetite Eyes: Denies: blurry vision or eye discomfort ENMT: Denies: throat pain or dental pain Card: Denies: chest pain Resp: Denies: dyspnea GI: Denies: abdominal pain, nausea, vomiting or diarrhea : Denies: dysuria Musc: Denies: neck pain or back pain Skin/Breast: Denies: rash Neuro: Denies: headache(s) Psych: Denies: depression Alen/Lymph: Denies: easy bruising All/Imm: Denies: urticaria PFSH ED PFSH: Medical History Abdominal pain Acidosis, lactic Anxiety and depression ASHD (arteriosclerotic heart disease) Cataracts, bilateral CKD (chronic kidney disease) Diabetes Diabetic neuropathy Diabetic peripheral neuropathy Fibromyalgia Gastroparesis Hyperlipidemia Hypertension Insomnia Intractable abdominal pain Intractable vomiting with nausea Left renal stone Leukocytosis Migraine Pyuria Ureterolithiasis Surgical History H/O angioplasty H/O carpal tunnel repair H/O: hysterectomy History of cholecystectomy Family History Mother , at age 65 Heart attack Father , at age 63 Heart attack Other Diabetes Hypertension Social History Smoking and tobacco status: never smoked Second hand smoke exposure: No Alcohol intake: never Adopted: No Caregiver/support person: Yes (spouse) Lives independently: Yes Household members: spouse Marital status: service: No Current occupational status: retired History of recent travel: No Current gender identity: Female Special vandana needs: No Agree to transfusion: Yes Physical Exam Const: COMMON NORMALS: no acute distress, patient oriented x3 and healthy appearing HENMT: COMMON NORMALS: normocephalic and atraumatic HEAD & SCALP: normocephalic and atraumatic Eye: COMMON NORMALS: Equal, round and reactive pupils present and EOMs intact bilaterally PUPIL: Yes Equal, round and reactive pupils present Neck/C-Spine: COMMON NORMALS: full ROM and supple Chest: COMMONS NORMALS: normal inspection of the chest and normal palpation of entire chest wall Resp: COMMON NORMALS: normal respiratory effort, No retractions, No use of accessory muscles and clear to auscultation bilaterally AUSCULTATION: clear to auscultation bilaterally Cardio: COMMON NORMALS: regular rate, regular rhythm and No murmurs present (Cardio) RATE: regular rate RHYTHM: regular rhythm GI: COMMON NORMALS: Normal to inspection, nondistended, normoactive bowel sounds present, Soft to palpation and no masses PALPATION: Yes Soft to palpation OTHER: diffuse tenderness Extremity: COMMON NORMALS: normal to inspection and full ROM Neuro: COMMON NORMALS: patient oriented x3, moves all extremities and no focal motor deficits Psych: COMMON NORMALS: mental status grossly normal, Normal thought process present and cooperative THOUGHT PROCESS: Normal thought process present Skin: COMMON NORMALS: no rashes or lesions noted and no wounds GENERAL SKIN EXAM: no rashes or lesions noted Course Vital Signs: Vital signs: Vital Signs Temperature 97.6 F 06/06/22 17:38 Pulse Rate 134 H 06/06/22 18:35 Respiratory Rate 21 H 06/06/22 18:35 Blood Pressure 173/93 06/06/22 18:35 Pulse Oximetry 99 06/06/22 18:35 Oxygen Delivery Me thod 06/06/22 18:35 MDM - Abdominal Pain Medical Decision Making Patient presents here with abdominal pain vomiting she is in DKA with anion gap did start her on insulin drip spoke to hospitalist will admit to the ICU. Lab Data : 06/06/22 18:00 06/06/22 18:00 Labs/Radiology: Radiology Impressions Abdomen/Pelvis CT 06/06/22 17:55 IMPRESSION: 1. Removal of the previous left renal calculus with ureteral stent placement and trace left hydronephrosis. Fat stranding around the left renal pelvis and ureter could indicate infection of the collecting system. Clinical correlation recommended. 2. Stool volume in the colon could indicate constipation. 3. Right renal calculi. 4. Cellulitis versus multiple medication injection sites in the anterior abdominal wall. Chest X-Ray 06/06/22 17:55 IMPRESSION: No acute finding. Laboratory Results WBC 22.4 10^3/uL (4.0-10.0) H 06/06/22 18:00 RBC 4.69 10^6/uL (4.1-5.3) 06/06/22 18:00 Hgb 13.8 g/dL (11.5-15.3) 06/06/22 18:00 Hct 43.4 % (37.0-47.0) 06/06/22 18:00 MCV 92.5 fl (81-99) 06/06/22 18:00 MCH 29.4 pg (28.0-34.0) 06/06/22 18:00 MCHC 31.8 g/dL (30.0-36.0) 06/06/22 18:00 RDW 13.6 % (12.1-15.1) 06/06/22 18:00 Plt Count 529 10^3/cmm (130-400) H 06/06/22 18:00 MPV 10.3 fL (7.4-10.4) 06/06/22 18:00 Neut % (Auto) 91.3 % 06/06/22 18:00 Lymph % (Auto) 5.6 % 06/06/22 18:00 [place] % (Auto) 2.4 % 06/06/22 18:00 Eos % (Auto) 0.1 % 06/06/22 18:00 Baso % (Auto) 0.1 % 06/06/22 18:00 Neut # (Auto) 20.45 10^3/uL (1.8-7.7) H 06/06/22 18:00 Lymph # (Auto) 1.3 10^3/uL (0.8-4.8) 06/06/22 18:00 [place] # (Auto) 0.5 10^3/uL (0.2-0.9) 06/06/22 18:00 Eos # (Auto) 0.0 10^3/uL (0.0-0.8) 06/06/22 18:00 Baso # (Auto) 0.0 10^3/uL (0.0-0.1) 06/06/22 18:00 Nucleated RBC % (auto) 0 % 06/06/22 18:00 Nucleated RBCs # 0.0 /100WBC 06/06/22 18:00 Sodium 128 mmol/L (136-145) L 06/06/22 18:00 Potassium 4.4 mmol/L (3.5-5.1) 06/06/22 18:00 Chloride 85 mmol/L (98-107) L 06/06/22 18:00 Carbon Dioxide 11 mmol/L (22-29) L 06/06/22 18:00 Anion Gap 36.4 (5-19) H 06/06/22 18:00 BUN 25 mg/dL (8-23) H 06/06/22 18:00 Creatinine 1.1 mg/dL (0.5-0.9) H 06/06/22 18:00 GFR Calculation Not Reportable 06/06/22 18:00 Glucose 495 mg/dL (65-115) H 06/06/22 18:00 POC Glucose 523 mg/dL (70-110) H* 06/06/22 18:29 Calculated Osmolality 292 mOsm/kg (285-295) 06/06/22 18:00 Lactate 2.5 mmol/L (0.5-2.2) H 06/06/22 18:00 Calcium 8.2 mg/dL (8.5-10.5) L 06/06/22 18:00 Total Bilirubin 0.3 mg/dL (0.15-1.2) 06/06/22 18:00 AST 8 U/L (0-32) 06/06/22 18:00 ALT 11 U/L (0-33) 06/06/22 18:00 Alkaline Phosphatase 99 U/L (35-105) 06/06/22 18:00 Troponin T Baseline 34 ng/L (0-10) H 06/06/22 18:00 Troponin T 120 Minute 31.26 ng/L (0-10) H 06/06/22 19:47 Delta Troponin T -2.74 ABS# (0-10) L 08/24/22 19:47 Total Protein 7.2 g/dL (6.6-8.7) 06/06/22 18:00 Albumin 3.5 g/dL (3.5-5.2) 06/06/22 18:00 Globulin 3.7 g/dL (1.3-4.6) 06/06/22 18:00 Lipase 13 U/L (13-60) 06/06/22 18:00 Serum Ketones Positive (Negative) H 06/06/22 18:00 EKG Data EKG 1: I personally reviewed and interpreted this EKG as follows: EKG interpretation date: 06/06/22 EKG interpretation time: 18:31 Interpretation: sinus tach hr [address] or t wave abnormalities qrs 121 qtc 406 Critical Care Time Critical Care Time: Critical Care Time: Yes Total Critical Care Time: 45 Attestation: The high probability of a clinically significant, sudden or life threatening deterioration of the patient's endocrine system(s) required my full and direct attention, intervention and personal management. The critical care time is as shown. This time is in addition to time spent performing any reported procedures but includes the following: [x] Data and vital sign review and interpretation [x] Patient assessment, examination and intervention [x] Documentation [x] Medication orders and management Discharge Plan Discharge Condition: Stable Prescriptions: No Action aspirin [Adult Low Dose Aspirin] 81 mg tablet,delayed release (DR/EC) 81 mg PO BEDTIME Novolog Flexpen U-100 Insulin 100 unit/mL (3 mL) insulin pen 5 unit SUBCUT TID 30 Days Qty: 4.5 3RF hydrocodone-acetaminophen 10-325 mg tablet 1 tab PO Q8H PRN (Reason: pain) 30 Days Qty: 90 0RF Rx Instructions: Do not fill until 05/22/22 (DME) blood-glucose meter Kit See Rx Instructions .ROUTE .MEDSUPPLY Qty: 1 0RF Rx Instructions: TEST 4 TIMES PER DAY (DME) Accu-Chek Merced Plus test strp Strip See Rx Instructions .ROUTE .MEDSUPPLY Qty: 100 0RF Rx Instructions: TEST QID (DME) pen needle, diabetic [TRUEplus Pen Needle] 32 gauge x 5/32 needle See Rx Instructions .ROUTE .COMPLEX Qty: 100 1RF Dose Instruction: USE DIRECTED Rx Instructions: USE DIRECTED cefpodoxime 200 mg tablet 200 mg PO BID Qty: 60 1RF Rx Instructions: must administer with a meal/food Victoza 3-Moris 0.6 mg/0.1 mL (18 mg/3 mL) pen injector 1.2 mg SUBCUT DAILY multivitamin Tablet 1 tab PO QAM metoprolol tartrate 100 mg tablet 100 mg PO BID ropinirole 0.25 mg tablet 0.25 mg PO BEDTIME ramipril 5 mg capsule 5 mg PO BEDTIME rosuvastatin 40 mg tablet 40 mg PO BEDTIME Levemir FlexTouch U-100 Insuln 100 unit/mL (3 mL) insulin pen 80 unit SUBCUT BID oxycodone-acetaminophen 5-325 mg tablet 1 tab PO Q8H PRN (Reason: pain) Qty: 10 0RF Referrals: Jane Strickland MD [Primary Care Provider] - Coding Level of Care Code ED Shoemaker Apprentice for [facility] Fwd Exam Comprehensive
[2022-06-06 18:08] LABS: Basophils % 0.1 %; Eosinophils % 0.1 %; Hematocrit 43.4 % (37.0-47.0); Hemoglobin 13.8 g/dL (11.5-15.3); Lymphocytes # 1.3 10^3/uL (0.8-4.8); Lymphocytes % 5.6 %; Mean Corpuscular HGB Conc 31.8 g/dL (30.0-36.0); Mean Corpuscular Hemoglobin 29.4 pg (28.0-34.0); Mean Corpuscular Volume 92.5 fl (81-99); Mean Platelet Volume 10.3 fL (7.4-10.4); Monocytes # 0.5 10^3/uL (0.2-0.9); Monocytes % 2.4 %; Neutrophils # 20.45 10^3/uL (1.8-7.7); Neutrophils % 91.3 %; Nucleated Red Blood Cells % 0 %; Platelet Count 529 10^3/cmm (130-400); Red Blood Count 4.69 10^6/uL (4.1-5.3); Red Cell Distribution Width 13.6 % (12.1-15.1); White Blood Count 22.4 10^3/uL (4.0-10.0)
[2022-06-06] MEDS: sodium chloride 0.9% 1,000 ML 999 ML IV (18:14)
[2022-06-06 18:15] VITALS: BP 176/88; PULSE 128; RESP 20; O2SAT 99
[2022-06-06] MEDS: HYDROmorphone 1 mg/mL INJ 1 mL 0.5 MG IVP ×2 (18:23→20:31)
[2022-06-06 18:29] LABS: Ketone (Acetest) Serum Positive (Negative)
[2022-06-06 18:35] VITALS: BP 173/93; PULSE 134; RESP 21; O2SAT 99
[2022-06-06 18:37] LABS: Glucose Point of Care 523 mg/dL (70-110)
[2022-06-06 18:42] LABS: Lactate (Lactic Acid level) 2.5 mmol/L (0.5-2.2); Troponin(5th) Baseline 34 ng/L (0-10)
[2022-06-06 18:46] LABS: Alanine Aminotransferase 11 U/L (0-33); Albumin Level 3.5 g/dL (3.5-5.2); Alkaline Phosphatase 99 U/L (35-105); Anion Gap 36.4 (5-19); Aspartate Amino Transferase 8 U/L (0-32); Blood Urea Nitrogen 25 mg/dL (8-23); Calcium 8.2 mg/dL (8.5-10.5); Carbon Dioxide 11 mmol/L (22-29); Chloride 85 mmol/L (98-107); Globulin 3.7 g/dL (1.3-4.6); Glucose 495 mg/dL (65-115); Lipase 13 U/L (13-60); Osmolality Calculated 292 mOsm/kg (285-295); Potassium 4.4 mmol/L (3.5-5.1); Sodium 128 mmol/L (136-145); Total Bilirubin 0.3 mg/dL (0.15-1.2); Total Protein 7.2 g/dL (6.6-8.7)
--- NOTE | 2022-06-06 19:04 | PC.NURSE ---
Report given to CAN Hicks
[2022-06-06 20:14] LABS: Troponin 5 2HR 31.26 ng/L (0-10)
--- NOTE | 2022-06-06 20:18 | PC.PHAR ---
PT WAS TAKING VITAMIN D2 OR D3 ACCORDING TO AN OLD MED LIST SHE HAD WITH HER- PT UNSURE IF SHE IS STILL TAKING- SEVERAL THINGS ON THE LIST FROM HOME WERE INACCURATE, DOSAGE ECT.- MEDS VERIFIED WITH PT ,PT AND EXTERNAL MED LIST LAST FILLED.
[2022-06-06 20:29] LABS: Troponin 5 2HR Delta -2.74 ABS# (0-10)
[2022-06-06] MEDS: ondansetron 2 mg/ML SDV 2 mL 4 MG IVP (20:31)
--- NOTE | 2022-06-06 20:40 | P.HP_ITS ---
Providers/Chief Complaint Primary Care Provider: Jane Strickland MD Chief Complaint: cp, abdomen pain History of Present Illness Evelyn Farley is a 76 year old female with a past medical history of significant type 2 diabetes mellitus, diabetic gastroparesis, diabetic neuropathy, CAD, anxiety and depression, CKD, hypertension, who was had multiple abdominal surgeries including cholecystectomy and appendectomy, exploratory laparotomy for adhesions, history of kidney stones in the past, recent hospitalization for left UPJ stone with hydronephrosis and UTI, status post stent placement, subsequently follow-up with Dr. Jones had stent removal, lipid episode, subsequent stent placement. Patient presents [facility] due to complaints of fatigue, malaise, nausea, vomiting, abdominal pain and distention. She tells me that for the last 48 hours, she has had nausea, vomiting, abdominal distention, abdominal pain. She is passing stool. She is passing gas. But she feels nauseous, inability keep down liquids. Due to her poor intake, she has not been taking her insulin. No fevers. No chills. Does at times feel lightheaded. No dizziness. No chest pain. No palpitations, no shortness of breath Review of Systems Const: Reports: fatigue and malaise; Denies: fever(s) Card: Denies: chest pain or palpitations Resp: Denies: dyspnea GI: Reports: abdominal pain, nausea and vomiting Medications/Allergies Home Medications Medication Instructions Recorded Confirmed Last Taken Type aspirin 81 mg tablet,delayed 81 mg PO BEDTIME 10/28/19 06/06/22 06/05/22 History release (Adult Low Dose Aspirin) blood-glucose meter #1 ea 11/19/19 06/06/22 Unknown Rx insulin aspart U-100 100 unit/mL 5 unit (0.05 mL) SUBCUT TID 30 09/26/21 06/06/22 06/06/22 Rx (3 mL) subcutaneous pen (Novo #4.5 mL Flexpen U-100 Insulin aspart) hydrocodone 10 mg-acetaminophen 1 tab PO Q8H PRN pain 30 days #90 03/26/22 06/06/22 06/03/22 Rx 325 mg tablet tabs blood sugar diagnostic (Accu-Chek #100 ea 05/09/22 06/06/22 Unknown Rx Merced Plus test strp) pen needle, diabetic 32 gauge x ##100 05/18/22 06/06/22 Unknown Rx (TRUEplus Pen Needle) insulin detemir U-100 100 unit/mL 80 unit SUBCUT BID 05/23/22 06/06/22 06/04/22 History (3 mL) subcutaneous pen (Levemir FlexTouch U-100 Insulin) metoprolol tartrate 100 mg tablet 100 mg PO BID 05/23/22 06/06/22 06/06/22 History multivitamin 1 tab PO QAM 05/23/22 06/06/22 06/06/22 History ramipril 5 mg capsule 5 mg PO BEDTIME 05/23/22 06/06/22 06/05/22 History ropinirole 0.25 mg tablet 0.25 mg PO BEDTIME 05/23/22 06/06/22 06/05/22 History rosuvastatin 40 mg tablet 40 mg PO BEDTIME 05/23/22 06/06/22 06/05/22 History oxycodone-acetaminophen 5 mg-325 1 tab PO Q8H PRN pain #10 tabs 05/25/22 06/06/22 Unknown Rx mg tablet cefpodoxime 200 mg tablet 200 mg PO BID #60 tabs 06/05/22 06/06/22 06/06/22 Rx liraglutide 0.6 mg/0.1 mL (18 mg/3 1.2 mg SUBCUT DAILY 06/06/22 06/06/22 Unknown History mL) subcutaneous pen injector (Victoza 3-Moris) Allergies Allergy/AdvReac Type Severity Reaction Status Date / Time gabapentin Allergy hallucinati Verified 06/06/22 19:11 ons Iodinated Contrast Media Allergy Unknown Verified 06/06/22 19:11 nifedipine [From Procardia] Allergy Unknown Verified 06/06/22 19:11 prochlorperazine Allergy Unknown Verified 06/06/22 19:11 [From Compazine] PFSH Acute PFSH: Medical History Abdominal pain Acidosis, lactic Anxiety and depression ASHD (arteriosclerotic heart disease) Cataracts, bilateral CKD (chronic kidney disease) Diabetes Diabetic neuropathy Diabetic peripheral neuropathy Fibromyalgia Gastroparesis Hyperlipidemia Hypertension Insomnia Intractable abdominal pain Intractable vomiting with nausea Left renal stone Leukocytosis Migraine Pyuria Ureterolithiasis Surgical History H/O angioplasty H/O carpal tunnel repair H/O: hysterectomy History of cholecystectomy Family History Mother , at age 65 Heart attack Father , at age 63 Heart attack Other Diabetes Hypertension Social History Smoking and tobacco status: never smoked Second hand smoke exposure: No Alcohol intake: never Adopted: No Caregiver/support person: Yes (spouse) Lives independently: Yes Household members: spouse Marital status: service: No Current occupational status: retired History of recent travel: No Current gender identity: Female Special vandana needs: No Agree to transfusion: Yes Vitals/I&O/Wt Last Vital Signs Temp 97.6 F 06/06/22 17:38 Pulse 134 H 06/06/22 18:35 Resp 21 H 06/06/22 18:35 BP 173/93 06/06/22 18:35 Pulse Ox 99 06/06/22 18:35 O2 Del Method 06/06/22 18:35 Weight last 48 hrs Weight 79.379 kg Physical Exam Const: COMMON NORMALS: no acute distress and patient oriented x3 HENMT: COMMON NORMALS: normocephalic HEAD & SCALP: normocephalic Eye: COMMON NORMALS: Equal, round and reactive pupils present and EOMs intact bilaterally Neck/C-Spine: COMMON NORMALS: no JVD Lymph: LYMPHATIC: no lymphadenopathy noted Resp: COMMON NORMALS: normal respiratory effort, No retractions, No use of accessory muscles and clear to auscultation bilaterally AUSCULTATION: clear to auscultation bilaterally Cardio: COMMON NORMALS: no JVD, regular rate, regular rhythm, S1 normal heart sound present and S2 normal heart sound present RATE: regular rate RHYTHM: regular rhythm HEART SOUNDS: S1 normal heart sound present and S2 normal heart sound present GI: OTHER: Abdomen soft, slightly distended, diffuse tenderness, no guarding, no rebound, no rigidity Extremity: COMMON NORMALS: capillary refill normal, no clubbing, cyanosis or edema, no calf tenderness and no pedal edema Neuro: COMMON NORMALS: patient oriented x3 Psych: COMMON NORMALS: mental status grossly normal Data : 06/06/22 18:00 06/06/22 18:00 A&P Assessment and plan (1) Diabetic ketoacidosis: Status: Acute (2) Nausea and vomiting: Status: Acute (3) Pyelonephritis: Status: Acute (4) Gram-positive bacteremia: Status: Acute Plan Diabetic ketoacidosis Plan -Admit to ICU -DKA protocol -Continue insulin drip -Normal saline with 40 KCl -Monitor blood sugars hourly -Maintain potassium greater than 4.5 -Once blood sugar drops below 200, switch to D5 half-normal saline with 40 KCl -Keep n.p.o. -DNR/DNI -Lovenox for DVT prophylaxis Intractable nausea vomiting -Potentially related to diabetic gastroparesis -However does have evidence of left pyelonephritis, -History of gram-positive bacteremia -Zofran, Reglan for nausea control -Keep n.p.o. Sepsis -With tachycardia, elevated lactic acid, leukocytosis source likely left pyelonephritis Left pyelonephritis CT scan shows removal of the previous left renal calculus with ureteral stent placement and trace left hydronephrosis.? Fat stranding around the left renal pelvis and ureter could indicate infection of the collecting system. Clinical correlation recommended. 2. Stool volume in the colon could indicate constipation. 3. Right renal calculi. 4. Cellulitis versus multiple medication injection sites in the anterior abdominal wall.? -Urinalysis is currently pending -Continue Rocephin -Follow urine cultures, blood cultures -Have discussed with urology, they will review CAT scan Gram-positive bacteremia -During her last hospitalization, 2 sets of blood cultures were positive for staph epidermis -Started on vancomycin -Repeat blood cultures -ESR, Pro-Bassam, CRP Chest discomfort, serial EKGs, serial troponins, telemetry monitoring Attestations Medical Necessity Statement*: Patient requires hospitalization, inpatient, greater than 2 midnights, for diabetic ketoacidosis, gram-positive bacteremia, nausea, vomiting, pyelonephritis Coding Level of Care Code Acute Suit Maker for [facility] Diagnoses Diabetic ketoacidosis E11.10 Nausea and vomiting R11.2 Pyelonephritis N12 Gram-positive bacteremia R78.81
[2022-06-06 20:44] LABS: Specific Gravity, Urine 1.025 (1.005-1.030); Urine Color Other (Yellow); pH Urine 5 (5-7)
[2022-06-06] MEDS: cefTRIAXone 1,000 MG in sodium chloride 0.9% (plus) 50 ML 100 MG IV (20:44)
[2022-06-06 20:45] LABS: Add Urine Microscopic? YES; Bilirubin Urine Neg (Negative); Blood Urine 3+ (Negative); Glucose Urine UA 4+ (Normal); Ketones Urine 3+ (Negative); Leukocyte Esterase Urine 1+ (Negative); Nitrate Urine Negative (Negative); Protein Urine 2+ (Negative); Urobilinogen Urine Norm (Negative)
[2022-06-06 20:46] LABS: RBC Urine TOO NUMEROUS TO CNT /hpf (0-2)
[2022-06-06 20:46] LABS: Glucose Point of Care 404 mg/dL (70-110)
[2022-06-06 20:47] LABS: Bacteria Urine 2+ /hpf; Fine Granular Casts Urine 0-4 /lpf
[2022-06-06 20:48] LABS: Add Urine Culture? Yes; WBC Urine 80-100 /hpf (0-5)
[2022-06-06 21:07] LABS: Erythrocyte Sedimentation Rate 36 mm/hr (0-15)
[2022-06-06 21:48] LABS: Anion Gap 34.3 (5-19); Blood Urea Nitrogen 25 mg/dL (8-23); C Reactive Protein 20.8 mg/L (0.0-4.9); Calcium 7.6 mg/dL (8.5-10.5); Carbon Dioxide 11 mmol/L (22-29); Chloride 90 mmol/L (98-107); Glucose 438 mg/dL (65-115); Osmolality Calculated 295 mOsm/kg (285-295); Phosphorus 3.1 mg/dL (2.5-4.5); Potassium 4.3 mmol/L (3.5-5.1); Sodium 131 mmol/L (136-145)
[2022-06-06] MEDS: insulin regular-human 250 UNIT in sodium chloride 0.9% 250 ML 10.3 UNIT IV (21:48)
--- NOTE | 2022-06-06 21:48 | PC.PHAR ---
Pharmacokinetic dosing service Date: 06/06/22 Time: 2147 Objective: Patient: Evelyn Farley Floor: ED Age: 76 yo Serum creatinine: 1.1 mg/dL Height: 62.0 Inches Weight (kg): 79.379 Diagnosis: Relevant medical/social history: Cultures and sensitivities: Other labs: Assessment: IBW (kg): 50.10 Dosing wt(kg): 79.379 Estimated Creatinine clearance (ml/min): 34.9 CRCL method: Cockcroft and Gault using ibw(default). Drug selected: Vancomycin Loading dose (mg): 0 Vd (liters): 71.4 (factor used: 0.9 L/kg) Say (hr-1): 0.033 Half life (hrs): 21.00 Recommended dose: 1250 mg Interval: 24 hrs Infusion time (hrs): 1.5 Predicted peak (mcg/mL): 31.2 Predicted trough (mcg/mL): 14.85 Total body weight is being used for vancomycin dosing. Renal function is stable [ ] /unstable [ ] Recommendations: Give Vancomycin 1250 mg q 24 hrs with an expected Cpeak of 31.2 mcg/ml and an expected Ctrough of 14.85 mcg/ml Renal dosing of other antibiotics (review renal dosing of other medications and list guidelines here): Thank you for the consult, will continue to follow. Signature: Kathryn Valle [facility]
[2022-06-06 21:55] LABS: Procalcitonin 0.15 ng/mL (0-0.5)
[2022-06-06 22:21] VITALS: BP 169/81; PULSE 139; RESP 16; O2SAT 97
--- NOTE | 2022-06-06 22:38 | PC.NURSE ---
Daughter, Catie Subramanian, contact: [phone]
[2022-06-06 23:50] LABS: Glucose Point of Care 313 mg/dL (70-110)
--- NOTE | 2022-06-06 23:55 | ECG_ITS ---
[facility] Test Date: 2022-06-07 Pat Name: Evelyn Farley Department: Room: Gender: Female Tool/Die Maker: : 1945 Requested By: Bianca Liao Order Number: [id number] Beverley MD: Christine Sepulveda M.D. Measurements Intervals [place] Rate: 129 P: 43 NH: 97 QRS: -1 QRSD: 121 T: 157 QT: 336 QTc: 494 Interpretive Statements SINUS TACHYCARDIA WITH SHORT NH INTERVAL LBBB MODERATE T-WAVE ABNORMALITY, CONSIDER LATERAL ISCHEMIA [-0.1+ mV T-WAVE IN I/aVL/V5/V6] Compared to ECG 06/06/2022 18:31:43 Myocardial infarct finding now present Intraventricular conduction delay no longer present T-wave abnormality still present Electronically Signed On 06-08-2022 6:33:49 CDT by Christine Sepulveda M.D. [id number]
[2022-06-07] VITALS (34 sets, daily range): BP systolic 100–175; BP diastolic 51–95; PULSE 106–133; RESP 11–24; TEMP 36.8; O2SAT 90–99
[2022-06-07] MEDS: pantoprazole 40 mg SDV IVP ×2 (00:09→20:40)
[2022-06-07] MEDS: enoxaparin 40 mg/0.4 mL Syringe SUBCUT ×2 (00:09→21:39)
[2022-06-07] MEDS: vancomycin 1,250 MG/250 ML PIGGYBACK 250 MG IV ×2 (00:09→21:39)
[2022-06-07] MEDS: HYDROmorphone 1 mg/mL INJ 1 mL 0.5 MG IVP ×5 (00:57→23:32)
[2022-06-07] MEDS: sodium chlor 0.9% + KCl 40 mEq 40 MEQ/1,000 ML BAG 125 MEQ IV (01:02)
[2022-06-07 01:33] LABS: Troponin 5 6HR 39.29 ng/L (0-10); Troponin 5 6HR Delta 5.29 ng/L (0-12)
[2022-06-07 02:30] LABS: Phosphorus 1.9 mg/dL (2.5-4.5)
[2022-06-07 02:31] LABS: Anion Gap 19.6 (5-19); Blood Urea Nitrogen 28 mg/dL (8-23); Calcium 7.4 mg/dL (8.5-10.5); Carbon Dioxide 19 mmol/L (22-29); Chloride 98 mmol/L (98-107); Glucose 191 mg/dL (65-115); Osmolality Calculated 287 mOsm/kg (285-295); Potassium 3.6 mmol/L (3.5-5.1); Sodium 133 mmol/L (136-145)
[2022-06-07] MEDS: dextrose 5%-ns 0.45% + KCl 40 1,000 ML 125 MEQ IV (02:38)
[2022-06-07] MEDS: lidocaine 1% 5 ML in potassium chloride premix 100 ML 25 ML IV (03:22)
[2022-06-07] MEDS: potassium chloride ER 20 mEq Tablet PO ×2 (04:20→11:04)
[2022-06-07 06:57] LABS: Anion Gap 21.3 (5-19); Blood Urea Nitrogen 30 mg/dL (8-23); Calcium 7.5 mg/dL (8.5-10.5); Carbon Dioxide 18 mmol/L (22-29); Chloride 97 mmol/L (98-107); Glucose 210 mg/dL (65-115); Osmolality Calculated 286 mOsm/kg (285-295); Phosphorus 2.2 mg/dL (2.5-4.5); Potassium 4.3 mmol/L (3.5-5.1); Sodium 132 mmol/L (136-145)
[2022-06-07 08:20] LABS: Glucose Point of Care 253 mg/dL (70-110)
[2022-06-07 09:01] LABS: Glucose Point of Care 247 mg/dL (70-110)
--- NOTE | 2022-06-07 09:04 | ECG_ITS ---
[facility] Test Date: 2022-06-07 Pat Name: Evelyn Farley Department: Room: [facility] Gender: Female Clinical Safety Manager: : 1945 Requested By: Abbey Jacinto Order Number: [id number] Beverley MD: Christine Sepulveda M.D. Measurements Intervals [place] Rate: 124 P: 58 NM: 130 QRS: 4 QRSD: 117 T: 167 QT: 332 QTc: 478 Interpretive Statements SINUS TACHYCARDIA MODERATE INTRAVENTRICULAR CONDUCTION DELAY [110+ ms QRS DURATION] ST DEVIATION AND MODERATE T-WAVE ABNORMALITY, CONSIDER LATERAL ISCHEMIA [-0.1+ mV T-WAVE IN I/aVL/V5/V6] Compared to ECG 06/07/2022 00:14:48 Intraventricular conduction delay now present Short NM interval no longer present Myocardial infarct finding no longer present T-wave abnormality still present Possible ischemia still present Electronically Signed On 06-08-2022 6:22:49 CDT by Christine Sepulveda M.D. [id number]
--- NOTE | 2022-06-07 09:33 | PC.NURSE ---
Pt complained of chest discomfort. Believes large KCL pill recently administered got stuck. EKG ordered per order as precaution.
[2022-06-07 10:02] LABS: Glucose Point of Care 206 mg/dL (70-110)
[2022-06-07 10:52] LABS: Anion Gap 19.2 (5-19); Blood Urea Nitrogen 29 mg/dL (8-23); Calcium 7.9 mg/dL (8.5-10.5); Carbon Dioxide 18 mmol/L (22-29); Chloride 101 mmol/L (98-107); Glucose 197 mg/dL (65-115); Osmolality Calculated 289 mOsm/kg (285-295); Potassium 4.2 mmol/L (3.5-5.1); Sodium 134 mmol/L (136-145)
[2022-06-07 10:53] LABS: Creatinine Clr Calc Pharmacy 47.4318; Magnesium 2.1 mg/dL (1.7-2.3)
[2022-06-07 10:59] LABS: Glucose Point of Care 162 mg/dL (70-110)
[2022-06-07 12:20] LABS: Glucose Point of Care 109 mg/dL (70-110)
--- NOTE | 2022-06-07 13:00 | PC.NURSE ---
Pulled KCL tablet and Hydromorphone around 0900. Wasted 0.5 mls of Hydromorphone with Jose J Esteves RN. Scanned and administered both medications, then computer . Computer restarted. Nurse did not notice scan had not saved until the next time MAR viewed and noted KCL late. Administration witnessed by CAN Archibald.
--- NOTE | 2022-06-07 13:12 | PM.PN ---
Subjective Subjective: Creatinine has not worsened Patient endorsing pain/10 Left lower quadrant pain Leukocytosis noted Afebrile DKA Gap almost closed Blood glucose under 9 I will start her on clear liquid diet, lactic acidemia improved Vitals/I&O/Wt Last Vital Signs Temp 97.6 F 06/06/22 17:38 Pulse 119 H 06/07/22 06:46 Resp 16 06/07/22 06:46 BP 134/73 06/07/22 06:46 Pulse Ox 95 06/07/22 06:46 O2 Del Method 06/07/22 06:46 06/06/22 06/07/22 06/07/22 22:59 06:59 14:59 Intake Total 1050 / 1050 583.339 / 1633.339 19.253 / 19.253 Balance 1050 / 1050 583.339 / 1633.339 19.253 / 19.253 Weight last 48 hrs Weight 79.379 kg Physical Exam Narrative: Patient is awake and alert In distress because of left lower quadrant pain Concentrated urine Abdomen soft Tenderness in left lower quadrant No guarding rigidity or peritonitis EOMI, PERRLA Daughter at the bedside Looks dehydrated Lower extremity no swelling Doing well on room air Data : 06/06/22 18:00 06/07/22 10:00 Micro: Microbiology 06/06/22 18:02 Blood Culture - Preliminary Blood SPECIMEN COLLECTED 06/06/22 18:00 Blood Culture - Preliminary Blood SPECIMEN COLLECTED A&P Assessment and plan (1) Pyelonephritis: Status: Acute (2) Nausea and vomiting: Status: Acute (3) Diabetic ketoacidosis: Status: Acute Plan Sepsis related to pyelonephritis Currently on antibiotics Continue IV fluids Blood cultures taken Previously blood culture showed contamination with epidermidis Chronic kidney disease creatinine seems around baseline Right renal stone without any signs of obstruction Left-sided pyelonephritis Currently on treatment No signs of obstruction We will follow-up with Dr. Sanchez's recommendation DKA Anion gap almost closed I will start her on consistent carb diet Start her insulin Patient is DNR/DNI Intractable nausea vomiting has improved Diabetic gastroparesis versus sepsis Attestations Medical Necessity Statement*: Anticipating ICU stay for 1 more day Time Spent in Patient Care: 35 Coding Level of Care Code Acute Night Manager for [facility] Fwd Diagnoses Pyelonephritis N12 Nausea and vomiting R11.2 Diabetic ketoacidosis E11.10
[2022-06-07 13:28] LABS: Glucose Point of Care 108 mg/dL (70-110)
[2022-06-07 14:19] LABS: Magnesium 2.2 mg/dL (1.7-2.3); Phosphorus 1.2 mg/dL (2.5-4.5)
[2022-06-07 14:47] LABS: Glucose Point of Care 101 mg/dL (70-110)
[2022-06-07] MEDS: sodium chloride 0.9% 1,000 ML 75 ML IV (15:15)
[2022-06-07 15:49] LABS: Glucose Point of Care 188 mg/dL (70-110)
[2022-06-07 15:49] LABS: Glucose Point of Care 177 mg/dL (70-110)
[2022-06-07 15:49] LABS: Glucose Point of Care 233 mg/dL (70-110)
[2022-06-07 15:49] LABS: Glucose Point of Care 191 mg/dL (70-110)
[2022-06-07] MEDS: insulin glargine 100 units/1 mL 50 UNIT SUBCUT (15:50)
[2022-06-07 16:52] LABS: Anion Gap 16.8 (5-19); Blood Urea Nitrogen 28 mg/dL (8-23); Calcium 7.7 mg/dL (8.5-10.5); Carbon Dioxide 19 mmol/L (22-29); Chloride 104 mmol/L (98-107); Glucose 150 mg/dL (65-115); Osmolality Calculated 288 mOsm/kg (285-295); Potassium 4.8 mmol/L (3.5-5.1); Sodium 135 mmol/L (136-145)
[2022-06-07 17:01] LABS: Creatinine Clr Calc Pharmacy 47.4318
[2022-06-07 18:38] LABS: Glucose Point of Care 227 mg/dL (70-110)
[2022-06-07 18:52] LABS: Magnesium 2.2 mg/dL (1.7-2.3); Phosphorus 1.2 mg/dL (2.5-4.5)
--- NOTE | 2022-06-07 18:52 | P.MISC_ITS ---
Miscellaneous Note Purpose of Documentation: Was asked by Dr. Heredia last night to review her CT scan upon admission for DKA and what appears to be sepsis. She is status post ureterorenoscopy with laser lithotripsy of a large stone previously located her UPJ. The procedure was successfully completed on 06/04/2022 with minimal amount of sand-like residual. She was able to be discharged postoperatively. Presented last night very different scenario. Was found to be in DKA. Complaining of abdominal pain. White count was initially elevated but 22.[address] scan on admission showed left ureteral stent to be in good position. No residual stones were seen in the left kidney. There were some small nonob structing stones in the right kidney that were also unchanged from baseline. There was increased inflammatory changes in the perirenal fat around the left kidney which could be simply postoperative changes or possibly related to pyelonephritis. Stent appears to be functioning well. There is no significant hydronephrosis. Would not recommend any further activity from a urologic perspective at this point and agree with plans and acted already
[2022-06-07] MEDS: insulin lispro 100 unit/1 mL SUBCUT (19:53)
[2022-06-07] MEDS: cefTRIAXone 1,000 MG in sodium chloride 0.9% (plus) 50 ML 100 MG IV (20:40)
[2022-06-07 21:08] LABS: Glucose Point of Care 309 mg/dL (70-110)
[2022-06-07 22:54] LABS: Phosphorus 1.2 mg/dL (2.5-4.5)
[2022-06-08] VITALS (45 sets, daily range): BP systolic 116–165; BP diastolic 56–87; PULSE 96–148; RESP 12–24; TEMP 36.6–36.9; O2SAT 91–98
[2022-06-08 01:38] LABS: Glucose Point of Care 147 mg/dL (70-110)
[2022-06-08] MEDS: insulin glargine 100 units/1 mL 50 UNIT SUBCUT ×2 (01:39→13:22)
[2022-06-08 02:05] LABS: Basophils % 0.2 %; Eosinophils % 0.2 %; Hematocrit 36.5 % (37.0-47.0); Hemoglobin 11.7 g/dL (11.5-15.3); Lymphocytes # 3.1 10^3/uL (0.8-4.8); Lymphocytes % 23.8 %; Mean Corpuscular HGB Conc 32.1 g/dL (30.0-36.0); Mean Corpuscular Hemoglobin 29.1 pg (28.0-34.0); Mean Corpuscular Volume 90.8 fl (81-99); Mean Platelet Volume 10.4 fL (7.4-10.4); Monocytes # 0.8 10^3/uL (0.2-0.9); Monocytes % 6.1 %; Neutrophils # 9.06 10^3/uL (1.8-7.7); Neutrophils % 69.2 %; Nucleated Red Blood Cells % 0 %; Platelet Count 358 10^3/cmm (130-400); Red Blood Count 4.02 10^6/uL (4.1-5.3); Red Cell Distribution Width 13.9 % (12.1-15.1); White Blood Count 13.1 10^3/uL (4.0-10.0)
[2022-06-08 02:19] LABS: Magnesium 2.1 mg/dL (1.7-2.3); Phosphorus 1.9 mg/dL (2.5-4.5)
[2022-06-08] MEDS: HYDROmorphone 1 mg/mL INJ 1 mL 0.5 MG IVP ×5 (04:07→21:02)
[2022-06-08] MEDS: sodium chloride 0.9% 1,000 ML 75 ML IV ×2 (06:02→21:04)
[2022-06-08 06:45] LABS: Phosphorus 1.6 mg/dL (2.5-4.5)
--- NOTE | 2022-06-08 09:57 | PM.PN ---
Subjective Subjective: Patient is feeling better She is thinking to go home by tomorrow No fever no leukocytosis worsening No signs of bacteremia Pain has subsided DKA resolved Appreciate Dr. Jones's recommendation Creatinine 1.0 from yesterday, Adequate urine output Vitals/I&O/Wt Last Vital Signs Temp 98.4 F 06/08/22 04:00 Pulse 99 06/08/22 06:30 Resp 20 H 06/08/22 08:52 BP 141/74 06/08/22 06:30 Pulse Ox 95 06/08/22 08:52 O2 Del Method 06/08/22 06:30 06/07/22 06/08/22 06/08/22 22:59 06:59 14:59 Intake Total 2419.583 / 2678.836 1720 / 4398.836 Output Total 450 / 570 1000 / 1570 Balance 1969.583 / 2108.836 720 / 2828.836 Weight last 48 hrs Weight 66.27 kg Weight 79.379 kg Physical Exam Narrative: Patient is laying supine Much more awake and alert as compared to yesterday No abdominal pain Abdomen soft Nontender Bowel sound present Nonfocal neuro exam EOMI, PERRLA Doing well on room air Pleasant and cooperative during my evaluation Data : 06/08/22 01:57 06/07/22 15:53 Micro: Microbiology 06/06/22 20:27 Urine Culture - Final Urine,Clean Catch 06/06/22 18:02 Blood Culture - Preliminary Blood NEGATIVE TO DATE 06/06/22 18:00 Blood Culture - Preliminary Blood NEGATIVE TO DATE A&P Assessment and plan (1) Pyelonephritis: Status: Acute (2) Nausea and vomiting: Status: Acute (3) Diabetic ketoacidosis: Status: Acute (4) Hypertension: Status: Acute Qualifiers: Hypertension type: essential hypertension Qualified Code(s): I10 - Essential (primary) hypertension (5) Hyperlipidemia: Status: Acute Qualifiers: Hyperlipidemia type: mixed hyperlipidemia Qualified Code(s): E78.2 - Mixed hyperlipidemia Plan Sepsis related to pyelonephritis resolved Symptoms improving Clinically improving Afebrile Cultures negative No sign of bacteremia Continue antibiotics Appreciate. Dr. Jones's recommendation No plan for urological intervention DKA: Resolved Right renal stone no signs of obstruction No plan for urological intervention Plan to discharge her tomorrow DNR/DNI No active nausea or vomiting Continue consistent carb diet. Chronic kidney disease no acute worsening Attestations Medical Necessity Statement*: Discharge tomorrow Time Spent in Patient Care: 30 Coding Level of Care Code Acute Vehicle Window Tinter for Chg Fwd Diagnoses Pyelonephritis N12 Nausea and vomiting R11.2 Diabetic ketoacidosis E11.10 Hypertension I10 Hypertension type: essential hypertension Hyperlipidemia E78.2 Hyperlipidemia type: mixed hyperlipidemia
[2022-06-08 10:53] LABS: Glucose Point of Care 111 mg/dL (70-110)
[2022-06-08 10:58] LABS: ABG PCO2 20.8 mmHg (35-45); ABG PH Result 7.33 (7.35-7.45); Arterial Blood Gas Hematocrit 37.3 % (37-47); Blood Gas Sample Site Brachial, left; Blood Gas Sample Type Arterial; HCO3 ABG 10.9 mmol/L (22-26); Oxygen Device ROOM AIR
[2022-06-08 12:41] LABS: Glucose Point of Care 178 mg/dL (70-110)
--- NOTE | 2022-06-08 13:19 | PC.CHAP ---
Pastoral Care Encounter/Spiritual Assessment Type of Contact [] Declined customer support associate visit [] Patient/Family/Request visit [] Outpatient visit [] Follow-up visit [] Physician referral [] Code/Alert [x] Routine visit [] Staff referral [] Actively dying [x] Patient sleeping [] Family support [] [] Out of room [] Palliative care [] [] Receiving care in room [] Pre-surgical visit [] Trauma [] Long length of stay [] ICU visit [] Other: Relational/Emotional Strength [] Patient feels connected with others/family/visitors/staff [] Distress [] Loneliness/isolation [] Abandonment Spirituality of Patient [] Person of Audrey [] Attends Anabaptist of their Audrey [] Believes in Prayer [] Reads Bible or Church materials [] There are Spiritual issues to be addressed Web Retailer Interventions [x] Prayer [] Active listening [] Non-anxious presence [] Spiritual/emotional support [] Crisis/trauma care [] Spiritual counseling [] Bereavement support [] Provided bereavement packet [] Provided Bible/devotional materials [] Provided toy/stuffed animal, coloring book to patient or family member [] Provided Communion [] Anointing/[place] [] Salvation [] Completed spiritual assessment [] Other: Impact on Illness or Injury [] Angry [] Fearful [] Anxious [] Often cries [] Exhaustion [] Unable to work [] Unable to attend caodaism [] Unable to walk/stand [] Unable to read [] Unable to drive [] Unable to eat/drink [] Unable to sleep [] Unable to be with family [] Patient intubated [] Other: Summary Time spent with patient
[2022-06-08] MEDS: insulin lispro 100 unit/1 mL SUBCUT (13:22)
[2022-06-08 17:09] LABS: Glucose Point of Care 114 mg/dL (70-110)
--- NOTE | 2022-06-08 19:09 | PC.NURSE ---
SHift Summary: Uneventful shift Patient was up to a chair for about half of the day, was up to the bedside commode, and walked with PT. Standby assistance only. Only complaints have been pain, which have been well controlled with PRN dilaudid. Q4 hours timing of dilaudid seems to line up with the frequency of patient's reported pain.
[2022-06-08] MEDS: cefTRIAXone 1,000 MG in sodium chloride 0.9% (plus) 50 ML 100 MG IV (21:01)
[2022-06-08] MEDS: pantoprazole 40 mg SDV IVP (21:02)
[2022-06-08] MEDS: fluconazole 100 mg Tablet 150 MG PO (21:02)
[2022-06-08] MEDS: enoxaparin 40 mg/0.4 mL Syringe SUBCUT (22:07)
[2022-06-09] VITALS (26 sets, daily range): BP systolic 116–161; BP diastolic 51–83; PULSE 87–107; RESP 7–23; TEMP 36.8–37.5; O2SAT 92–99
[2022-06-09] MEDS: HYDROmorphone 1 mg/mL INJ 1 mL 0.5 MG IVP ×5 (00:28→19:28)
[2022-06-09] MEDS: insulin glargine 100 units/1 mL 50 UNIT SUBCUT (00:29)
--- NOTE | 2022-06-09 00:38 | PC.NURSE ---
Pt helped onto commode. This nurse went to check on patient, and found her crying. She denies that pain is any worse than it has been between doses of pain medication. Abdomen is soft, but tender on LLQ and she reports that the pain is primarily in the LLQ and left flank. Pain medication administered and patient helped back to bed.
[2022-06-09 00:39] LABS: Glucose Point of Care 144 mg/dL (70-110)
[2022-06-09 04:58] LABS: Basophils % 0.3 %; Eosinophils # 0.2 10^3/uL (0.0-0.8); Eosinophils % 1.8 %; Hemoglobin 10.5 g/dL (11.5-15.3); Lymphocytes # 2.9 10^3/uL (0.8-4.8); Lymphocytes % 31.9 %; Mean Corpuscular HGB Conc 32.8 g/dL (30.0-36.0); Mean Corpuscular Hemoglobin 29.7 pg (28.0-34.0); Mean Corpuscular Volume 90.4 fl (81-99); Mean Platelet Volume 10.7 fL (7.4-10.4); Monocytes # 0.6 10^3/uL (0.2-0.9); Monocytes % 6.2 %; Neutrophils # 5.39 10^3/uL (1.8-7.7); Neutrophils % 59.4 %; Nucleated Red Blood Cells % 0 %; Platelet Count 317 10^3/cmm (130-400); Red Blood Count 3.54 10^6/uL (4.1-5.3); White Blood Count 9.1 10^3/uL (4.0-10.0)
--- NOTE | 2022-06-09 05:42 | PC.NURSE ---
Pt reports that she has lower abdominal pain with voiding, which is new.
[2022-06-09 08:21] LABS: Glucose Point of Care 69 mg/dL (70-110)
[2022-06-09] MEDS: ondansetron 2 mg/ML SDV 2 mL 4 MG IVP ×2 (10:47→23:25)
[2022-06-09] MEDS: metoclopramide 5 mg/mL SDV 2 mL IVP (11:12)
[2022-06-09] MEDS: sodium chloride 0.9% 1,000 ML 75 ML IV (11:12)
[2022-06-09 11:48] LABS: Glucose Point of Care 137 mg/dL (70-110)
[2022-06-09] MEDS: insulin glargine 100 units/1 mL 40 UNIT SUBCUT (13:31)
--- NOTE | 2022-06-09 13:53 | P.PN_ITS ---
Subjective Subjective: Patient is still complaining of some nausea and abdominal pain currently pain is 5/10 No active emesis Patient is still endorsing dysphagia to solids, she is able to have mechanical soft diet I requested Dr. Washington for an EGD tomorrow We want you to do modified barium swallow over the weekend PT recommended home exercise program Patient is weak and very anxious Vitals/I&O/Wt Last Vital Signs Temp 98.2 F 06/09/22 05:00 Pulse 103 H 06/09/22 13:00 Resp 23 H 06/09/22 13:00 BP 116/60 06/09/22 12:00 Pulse Ox 99 06/09/22 13:00 O2 Del Method 06/09/22 06:00 06/08/22 06/09/22 06/09/22 22:59 06:59 14:59 Intake Total 1410 / 2110 1000 / 1000 Output Total 1000 / 1575 1200 / 2775 800 / 800 Balance 410 / 535 -1200 / -665 200 / 200 Weight last 48 hrs Weight 67.132 kg Weight 66.27 kg Physical Exam Narrative: Patient is awake and alert Nonfocal neuro exam Emotionally labile S1, S2 Abdomen soft No active rigidity or guarding Looks euvolemic She was eating mechanical soft diet this morning Currently on room air No active chest pain or shortness of breath Data : 06/09/22 04:34 06/09/22 06:23 A&P Assessment and plan (1) Pyelonephritis: Status: Acute (2) Nausea and vomiting: Status: Acute (3) Diabetic ketoacidosis: Status: Acute (4) Hypertension: Status: Acute Qualifiers: Hypertension type: essential hypertension Qualified Code(s): I10 - Essential (primary) hypertension (5) Odynophagia: Status: Acute Plan DKA resolved Currently on consistent carb diet Will decrease the dose of insulin because of low blood sugar this morning At home she has been taking Lantus 80 units twice a day I have reduced it to 50 units twice a day, I will reduce it further, ICU nurse updated Left-sided pyelonephritis No intervention as per Dr. Jones Her pain is most likely due to pyelonephritis, stent is in good position No signs of obstruction No pain on right side, Odynophagia EGD tomorrow Patient is endorsing weight loss, odynophagia to solids No previous history of gastric ulcer disease or cancer Blood work could not be completed today because it kept hemolyzing DNR/DNI Hold her DVT prophylaxis because of schedule EGD tomorrow Dr. Washington has been consulted and notified Mechanical soft diet until midnight then she will be n.p.o. PT recommending home excise program Attestations Medical Necessity Statement*: She can be transferred out of ICU Time Spent in Patient Care: 30 Coding Level of Care Code Acute Seed Corn Manager Production for Chg Fwd Diagnoses Pyelonephritis N12 Nausea and vomiting R11.2 Diabetic ketoacidosis E11.10 Hypertension I10 Hypertension type: essential hypertension Odynophagia R13.10
--- NOTE | 2022-06-09 15:25 | P.CONIM_ITS ---
Providers/Reason For Consult Consulting Physician/Specialty*: Endoscopist Reason for Consult*: Evaluation for possible EGD due to difficulty swallowing Attending Physician: Abbey Jacinto MD Primary Care Provider: Jane Strickland MD History of Present Illness History of Present Illness Evelyn Farley is a 76 year old female who initially presented to the hospital with diabetic ketoacidosis as well as acute kidney injury. These issues have been addressed, and the patient has demonstrated continued improvement. Despite that, she has complained of pain when she is swallowing. This is an acute problem that is just happened over the last couple of days. We are unable to obtain a barium swallow this weekend, and he contacted me about the possibility of an EGD to evaluate her swallowing difficulties. Review of Systems General: Reports: 10 or more systems reviewed and unremarkable except in HPI and below Const: Denies: fever(s) Card: Denies: chest pain or irregular heart rhythm Resp: Denies: dyspnea Medications/Allergies Home Medications Medication Instructions Recorded Confirmed Last Taken Type aspirin 81 mg tablet,delayed 81 mg PO BEDTIME 10/28/19 06/06/22 06/05/22 History release (Adult Low Dose Aspirin) blood-glucose meter #1 ea 11/19/19 06/06/22 Unknown Rx insulin aspart U-100 100 unit/mL 5 unit (0.05 mL) SUBCUT TID 30 09/26/21 06/06/22 06/06/22 Rx (3 mL) subcutaneous pen (Novo days #4.5 mL Flexpen U-100 Insulin aspart) hydrocodone 10 mg-acetaminophen 1 tab PO Q8H PRN pain 30 days #90 03/26/22 06/06/22 06/03/22 Rx 325 mg tablet tabs blood sugar diagnostic (Accu-Chek #100 ea 05/09/22 06/06/22 Unknown Rx Merced Plus test strp) pen needle, diabetic 32 gauge x ##100 05/18/22 06/06/22 Unknown Rx (TRUEplus Pen Needle) insulin detemir U-100 100 unit/mL 80 unit SUBCUT BID 05/23/22 06/06/22 06/04/22 History (3 mL) subcutaneous pen (Levemir FlexTouch U-100 Insulin) metoprolol tartrate 100 mg tablet 100 mg PO BID 05/23/22 06/06/22 06/06/22 History multivitamin 1 tab PO QAM 05/23/22 06/06/22 06/06/22 History ramipril 5 mg capsule 5 mg PO BEDTIME 05/23/22 06/06/22 06/05/22 History ropinirole 0.25 mg tablet 0.25 mg PO BEDTIME 05/23/22 06/06/22 06/05/22 History rosuvastatin 40 mg tablet 40 mg PO BEDTIME 05/23/22 06/06/22 06/05/22 History oxycodone-acetaminophen 5 mg-325 1 tab PO Q8H PRN pain #10 tabs 05/25/22 06/06/22 Unknown Rx mg tablet cefpodoxime 200 mg tablet 200 mg PO BID #60 tabs 06/05/22 06/06/22 06/06/22 Rx liraglutide 0.6 mg/0.1 mL (18 mg/3 1.2 mg SUBCUT DAILY 06/06/22 06/06/22 Unknown History mL) subcutaneous pen injector ([employer] 3-Moris) Allergies Allergy/AdvReac Type Severity Reaction Status Date / Time gabapentin Allergy hallucinati Verified 06/06/22 19:11 ons Iodinated Contrast Media Allergy Unknown Verified 06/06/22 19:11 nifedipine [From Procardia] Allergy Unknown Verified 06/06/22 19:11 prochlorperazine Allergy Unknown Verified 06/06/22 19:11 [From Compazine] Current Medications Generic Name Dose Route Start Last Admin Trade Name Freq PRN Reason Stop Dose Admin Enoxaparin Sodium 40 mg 06/06/22 22:00 06/08/22 22:07 Enoxaparin 40 Mg/0.4 Ml Syringe SUBCUT 40 mg Q24H LIAT Administration Hydromorphone HCl 0.5 mg 06/06/22 21:27 06/09/22 13:16 Hydromorphone 1 Mg/Ml Inj 1 Ml IVP 0.5 mg Q4H PRN Administration PAIN Ceftriaxone Sodium 1,000 mg/ 50 mls @ 100 mls/hr 06/07/22 21:00 06/08/22 22:15 Sodium Chloride IV Infused Q24H LIAT Infusion Protocol Sodium Chloride 1,000 mls @ 75 mls/hr 06/07/22 13:30 06/09/22 11:12 Sodium Chloride 0.9% IV 75 mls/hr .[id number] LIAT Administration Insulin Glargine 40 unit 06/09/22 13:30 06/09/22 13:31 Insulin Glargine 100 Units/1 Ml SUBCUT 40 unit Q12H LIAT Administration Insulin Human Lispro 0 unit 06/07/22 18:00 06/09/22 11:42 Insulin Lispro 100 Unit/1 Ml SUBCUT Not Given TIDWM LIAT Protocol Metoclopramide HCl 5 mg 06/06/22 21:27 06/09/22 11:12 Metoclopramide 5 Mg/Ml Sdv 2 Ml IVP 5 mg Q6H PRN Administration NAUSEA AND VOMITING Ondansetron HCl 4 mg 06/06/22 21:27 06/09/22 10:47 Ondansetron 2 Mg/Ml Sdv 2 Ml IVP 4 mg Q8H PRN Administration vomiting, or N/V if npo Pantoprazole Sodium 40 mg 06/06/22 21:27 06/08/22 21:02 Pantoprazole 40 Mg Sdv IVP 40 mg Q24H LIAT Administration PFSH Acute PFSH: Medical History Abdominal pain Acidosis, lactic Anxiety and depression ASHD (arteriosclerotic heart disease) Cataracts, bilateral CKD (chronic kidney disease) Diabetes Diabetic neuropathy Diabetic peripheral neuropathy Fibromyalgia Gastroparesis Hyperlipidemia Hypertension Insomnia Intractable abdominal pain Intractable vomiting with nausea Left renal stone Leukocytosis Migraine Pyuria Ureterolithiasis Surgical History H/O angioplasty H/O carpal tunnel repair H/O: hysterectomy History of cholecystectomy S/P ureteral stent placement Family History Mother , at age 65 Heart attack Father , at age 63 Heart attack Other Diabetes Hypertension Social History Smoking and tobacco status: never smoked Second hand smoke exposure: No Alcohol intake: never Adopted: No Caregiver/support person: Yes (spouse) Lives independently: Yes Household members: spouse Marital status: service: No Current occupational status: retired History of recent travel: No Current gender identity: Female Special vandana needs: No Agree to transfusion: Yes Vitals/I&O/Wt Last Vital Signs Temp 98.2 F 06/09/22 05:00 Pulse 105 H 06/09/22 15:00 Resp 16 06/09/22 15:00 BP 116/60 06/09/22 12:00 Pulse Ox 98 06/09/22 15:00 O2 Del Method 06/09/22 06:00 06/09/22 06/09/22 06/09/22 06:59 14:59 22:59 Intake Total 1000 / 1000 Output Total 1200 / 2775 800 / 800 Balance -1200 / -665 200 / 200 Weight last 48 hrs Weight 148 lb Weight 146 lb 1.6 oz Physical Exam Const: COMMON NORMALS: no acute distress and patient oriented x3 GENERAL APPEARANCE: cooperative, comfortable and well developed HENMT: COMMON NORMALS: normocephalic and moist oral mucous membranes HEAD & SCALP: normocephalic Chest: COMMONS NORMALS: normal inspection of the chest Resp: COMMON NORMALS: normal respiratory effort and clear to auscultation bilaterally AUSCULTATION: clear to auscultation bilaterally Cardio: COMMON NORMALS: regular rate, regular rhythm, No gallops present (Cardio), No murmurs present (Cardio) and No rub (Cardio) RATE: regular rate RHYTHM: regular rhythm GI: OTHER: There was no tenderness to palpation noted across the precordium or in the epigastric area. Extremity: COMMON NORMALS: normal to inspection Neuro: COMMON NORMALS: patient oriented x3 and no focal motor deficits Skin: COMMON NORMALS: no rashes or lesions noted GENERAL SKIN EXAM: no rashes or lesions noted Data : 06/09/22 04:34 06/09/22 06:23 A&P Assessment and plan (1) Odynophagia: I discussed with the patient the options available to her, including the options of an EGD, waiting for an outpatient EGD or barium swallow. I included the risks and benefits of each option. During our discussion, she mentioned that her swallowing is getting a little better and that she would like to wait to see if it continues to get better before having procedure done. She is comfortable having this addressed on an outpatient basis with her personal physician. I spoke with Dr. Jacinto regarding her decision, and he is going to reassess her and contact me early tomorrow morning if she changes her mind. We will keep her n.p.o. after midnight in case she decides to get it done. Status: Acute (2) Chest pain: Status: Acute Coding Level of Care Code Acute Utility Maintenance Worker for Melissa King Diagnoses Odynophagia R13.10 Chest pain R07.9
--- NOTE | 2022-06-09 21:25 | PC.NURSE ---
Patient transferred from ICU08 to [place] [id number] via wheelchair accompanied by staff and belongings at [id number]
[2022-06-09] MEDS: pantoprazole 40 mg SDV IVP (21:52)
[2022-06-09] MEDS: cefTRIAXone 1,000 MG in sodium chloride 0.9% (plus) 50 ML 100 MG IV (21:53)
[2022-06-10] VITALS (9 sets, daily range): BP systolic 136–188; BP diastolic 67–95; PULSE 87–103; RESP 16–19; TEMP 36.4–37.1; O2SAT 96–100
[2022-06-10] MEDS: HYDROmorphone 1 mg/mL INJ 1 mL 0.5 MG IVP (00:37)
[2022-06-10 05:42] LABS: Anion Gap 15.8 (5-19); Blood Urea Nitrogen 14 mg/dL (8-23); Calcium 8.5 mg/dL (8.5-10.5); Carbon Dioxide 23 mmol/L (22-29); Chloride 105 mmol/L (98-107); Glucose 102 mg/dL (65-115); Osmolality Calculated 291 mOsm/kg (285-295); Potassium 3.8 mmol/L (3.5-5.1); Sodium 140 mmol/L (136-145)
[2022-06-10 06:15] LABS: Glucose Point of Care 103 mg/dL (70-110)
--- NOTE | 2022-06-10 06:41 | P.ANESASSM_ITS ---
Pre-Anesthetic Assessment Height/Weight: Height 1.57 m Weight 68.084 kg Temp Pulse Resp BP Pulse Ox O2 Del Method O2 Flow Rate 98.7 F 96 19 H 169/78 96 0 06/10/22 04:41 06/10/22 04:41 06/10/22 04:41 06/10/22 04:41 06/10/22 04:41 06/09/22 19:39 06/09/22 19:39 Preop Diagnosis: Left UPJ stone status post emergency stenting Operation Date: 06/10/22 09:00 Proposed Procedures p EGD(Not Applicable) - Jose Guadalupe Washington MD Was Beta Tom taken within 24 hours: N/A (Held on admission ) Last intake: Intake Last Liquid Date 06/09/22 Last Liquid Time 23:50 Last Solid Date 06/09/22 Last Solid Time 17:00 Social No alcohol and No tobacco Pulmonary CXR 06/06/22 XR/XR chest 1V portable [id number] IMPRESSION: No acute finding. ? CV/HEM Anemia (Hgb 10.5 ), Coronary Artery Disease and Hypertension EKG 06/07/22 ?Interpretive Statements SINUS TACHYCARDIA MODERATE INTRAVENTRICULAR CONDUCTION DELAY? [110+ ms QRS DURATION] ST DEVIATION AND MODERATE T-WAVE ABNORMALITY, CONSIDER LATERAL ISCHEMIA ?[-0.1+ mV T-WAVE IN I/aVL/V5/V6] Compared to ECG 06/07/2022 00:14:48 Intraventricular conduction delay now present Short WV interval no longer present Myocardial infarct finding no longer present T-wave abnormality still present Possible ischemia still present Electronically Signed On 06-08-2022 6:22:49 CDT by Christine Sepulveda M.D. [email or web address] Chronic Renal Insufficiency Urolithiasis Pyelonephritis GI Gastroparesis Odynophagia Metabolic Diabetes Mellitus and Hyperlipidemia Diabetic ketoacidosis now resolved [facility] Fibromyalgia and Osteoarthritis/DJD Neuropsych Anxiety, Depression, Headache and Neuropathy Anesthetic Plan ASA status: 3 Medications/Allergies Home Medications Medication Instructions Recorded Confirmed Last Taken Type aspirin 81 mg tablet,delayed 81 mg PO BEDTIME 10/28/19 06/06/22 06/05/22 History release (Adult Low Dose Aspirin) blood-glucose meter #1 ea 11/19/19 06/06/22 Unknown Rx insulin aspart U-100 100 unit/mL 5 unit (0.05 mL) SUBCUT TID 30 09/26/21 06/06/22 06/06/22 Rx (3 mL) subcutaneous pen (Novo #4.5 mL Flexpen U-100 Insulin aspart) hydrocodone 10 mg-acetaminophen 1 tab PO Q8H PRN pain 30 days #90 03/26/22 06/06/22 06/03/22 Rx 325 mg tablet tabs blood sugar diagnostic (Accu-Chek #100 ea 05/09/22 06/06/22 Unknown Rx Merced Plus test strp) pen needle, diabetic 32 gauge x ##100 05/18/22 06/06/22 Unknown Rx (TRUEplus Pen Needle) insulin detemir U-100 100 unit/mL 80 unit SUBCUT BID 05/23/22 06/06/22 06/04/22 History (3 mL) subcutaneous pen (Levemir FlexTouch U-100 Insulin) metoprolol tartrate 100 mg tablet 100 mg PO BID 05/23/22 06/06/22 06/06/22 History multivitamin 1 tab PO QAM 05/23/22 06/06/22 06/06/22 History ramipril 5 mg capsule 5 mg PO BEDTIME 05/23/22 06/06/22 06/05/22 History ropinirole 0.25 mg tablet 0.25 mg PO BEDTIME 05/23/22 06/06/22 06/05/22 History rosuvastatin 40 mg tablet 40 mg PO BEDTIME 05/23/22 06/06/22 06/05/22 History oxycodone-acetaminophen 5 mg-325 1 tab PO Q8H PRN pain #10 tabs 05/25/22 06/06/22 Unknown Rx mg tablet cefpodoxime 200 mg tablet 200 mg PO BID #60 tabs 06/05/22 06/06/22 06/06/22 Rx liraglutide 0.6 mg/0.1 mL (18 mg/3 1.2 mg SUBCUT DAILY 06/06/22 06/06/22 Unknown History mL) subcutaneous pen injector ([employer] 3-Moris) Allergies Allergy/AdvReac Type Severity Reaction Status Date / Time gabapentin Allergy hallucinati Verified 06/06/22 19:11 ons Iodinated Contrast Media Allergy Unknown Verified 06/06/22 19:11 nifedipine [From Procardia] Allergy Unknown Verified 06/06/22 19:11 prochlorperazine Allergy Unknown Verified 06/06/22 19:11 [From Compazine] Current Medications Generic Name Dose Route Start Last Admin Trade Name Freq PRN Reason Stop Dose Admin Enoxaparin Sodium 40 mg 06/06/22 22:00 06/08/22 22:07 Enoxaparin 40 Mg/0.4 Ml Syringe SUBCUT 40 mg Q24H LIAT Administration Hydromorphone HCl 0.5 mg 06/06/22 21:27 06/10/22 00:37 Hydromorphone 1 Mg/Ml Inj 1 Ml IVP 0.5 mg Q4H PRN Administration PAIN Ceftriaxone Sodium 1,000 mg/ 50 mls @ 100 mls/hr 06/07/22 21:00 06/09/22 22:23 Sodium Chloride IV Infused Q24H LIAT Infusion Protocol Insulin Glargine 40 unit 06/09/22 13:30 06/09/22 13:31 Insulin Glargine 100 Units/1 Ml SUBCUT 40 unit Q12H LIAT Administration Insulin Human Lispro 0 unit 06/07/22 18:00 06/09/22 17:52 Insulin Lispro 100 Unit/1 Ml SUBCUT Not Given TIDWM [facility] Protocol Metoclopramide HCl 5 mg 06/06/22 21:27 06/09/22 11:12 Metoclopramide 5 Mg/Ml Sdv 2 Ml IVP 5 mg Q6H PRN Administration NAUSEA AND VOMITING Ondansetron HCl 4 mg 06/06/22 21:27 06/09/22 23:25 Ondansetron 2 Mg/Ml Sdv 2 Ml IVP 4 mg Q8H PRN Administration vomiting, or N/V if npo Pantoprazole Sodium 40 mg 06/06/22 21:27 06/09/22 21:52 Pantoprazole 40 Mg Sdv IVP 40 mg Q24H LIAT Administration PFSH Anesthesia Medical History Abdominal pain Acidosis, lactic Anxiety and depression ASHD (arteriosclerotic heart disease) Cataracts, bilateral CKD (chronic kidney disease) Diabetes Diabetic neuropathy Diabetic peripheral neuropathy Fibromyalgia Gastroparesis Hyperlipidemia Hypertension Insomnia Intractable abdominal pain Intractable vomiting with nausea Left renal stone Leukocytosis Migraine Pyuria Ureterolithiasis Surgical History H/O angioplasty H/O carpal tunnel repair H/O: hysterectomy History of cholecystectomy S/P ureteral stent placement Family History Mother , at age 65 Heart attack Father , at age 63 Heart attack Other Diabetes Hypertension Social History Smoking and tobacco status: never smoked Second hand smoke exposure: No Alcohol intake: never Adopted: No Caregiver/support person: Yes (spouse) Lives independently: Yes Household members: spouse Marital status: service: No Current occupational status: retired History of recent travel: No Current gender identity: Female Special vandana needs: No Agree to transfusion: Yes Data Anesthesia : 06/09/22 04:34 06/10/22 04:51 Short CBC 06/09/22 Range/Units 04:34 WBC 9.1 (4.0-10.0) 10^3/uL Hgb 10.5 L (11.5-15.3) g/dL Hct 32.0 L (37.0-47.0) % MCV 90.4 (81-99) fl Plt Count 317 (130-400) 10^3/cmm Neut % (Auto) 59.4 % Neut # (Auto) 5.39 (1.8-7.7) 10^3/uL BMP 06/09/22 06/09/22 06/10/22 04:34 06:23 04:51 Sodium Cancelled Cancelled 140 Potassium Cancelled Cancelled 3.8 Chloride Cancelled Cancelled 105 Carbon Dioxide Cancelled Cancelled 23 BUN Cancelled Cancelled 14 Creatinine Cancelled Cancelled 0.7 Glucose Cancelled Cancelled 102 Calcium Cancelled Cancelled 8.5 ABG 06/06/22 18:41 Specimen Type Arterial Sample Site Brachial, left ABG pH 7.33 L ABG pCO2 20.8 L ABG pO2 104.0 H ABG HCO3 10.9 L ABG Base Excess -13.0 L O2 Delivery Device Room air Cardiac Studies: No Data to Display
[2022-06-10] MEDS: chlorthalidone 25 mg Tablet 12.5 MG PO (06:46)
--- NOTE | 2022-06-10 08:37 | PC.SOCIAL ---
IMM update IMM Updated with patient at bedside. Verbalized an understanding. Copy Pg 2 provided. Initialled, dated, timed, and placed in chart.
--- NOTE | 2022-06-10 08:41 | P.DS_ITS ---
Discharge Providers Date of Admission: 06/07/22 06:57 Date of Discharge: June 10, 2022 Attending Provider at Admission: Gurdeep Heredia MD Attending Provider at Discharge: Abbey Jacinto MD Primary Care Provider: Jane Strickland MD Diagnoses at Discharge Discharge Diagnosis (1) Odynophagia: Status: Acute (2) Chest pain: Status: Acute Reason for Visit Reason for Visit: cp, abdomen pain Hospital Course Hospital Course 76-year female who was discharged on 05/25 after cystoscopy status post left ureteral stent on 05/23, she was discharged on cefpodoxime, presented back with DKA and pain in her flank area. She was diagnosed with pyelonephritis, DKA resolved with insulin, Dr. Jones did not recommend any intervention at this time recommended management of her symptoms with opioids and bowel regimen. Patient was complaining of odynophagia at this time which was acute in onset related to solid food. Dr. Washington was consulted for an EGD. At the time of discharge I will add chlorthalidone because of her hypotensive episodes, reduced the amount of Lantus to 60 units because of blood sugar in the morning is staying on lower side, will give her levofloxacin at the time of discharge at least 5 to 7-day regimen Outpatient follow-up with Dr. Jones Blood culture, urine culture negative, no signs of sepsis Physical Exam Narrative: Patient is awake and alert Nonfocal neuro exam S1, S2 Abdomen soft No active rigidity or guarding Looks euvolemic She was eating mechanical soft diet this morning Currently on room air No active chest pain or shortness of breath Discharge Data Studies Completed and Pending Completed Studies During Hospitalization Category Date Time Status CT abdomen pelvis wo con [id number] Stat Cat Scan 06/06/22 17:55 Completed XR chest 1V portable [id number] Stat Exams 06/06/22 17:55 Completed Pending at discharge Category Date Time Status Blood Culture Stat Lab 06/06/22 18:02 Results Radiology Impressions Abdomen/Pelvis CT 06/06/22 17:55 IMPRESSION: 1. Removal of the previous left renal calculus with ureteral stent placement and trace left hydronephrosis. Fat stranding around the left renal pelvis and ureter could indicate infection of the collecting system. Clinical correlation recommended. 2. Stool volume in the colon could indicate constipation. 3. Right renal calculi. 4. Cellulitis versus multiple medication injection sites in the anterior abdominal wall. Chest X-Ray 06/06/22 17:55 IMPRESSION: No acute finding. Laboratory Results WBC 9.1 10^3/uL (4.0-10.0) 06/09/22 04:34 RBC 3.54 10^6/uL (4.1-5.3) L 06/09/22 04:34 Hgb 10.5 g/dL (11.5-15.3) L 06/09/22 04:34 Hct 32.0 % (37.0-47.0) L 06/09/22 04:34 MCV 90.4 fl (81-99) 06/09/22 04:34 MCH 29.7 pg (28.0-34.0) 06/09/22 04:34 MCHC 32.8 g/dL (30.0-36.0) 06/09/22 04:34 RDW 14.0 % (12.1-15.1) 06/09/22 04:34 Plt Count 317 10^3/cmm (130-400) 06/09/22 04:34 MPV 10.7 fL (7.4-10.4) H 06/09/22 04:34 Neut % (Auto) 59.4 % 06/09/22 04:34 Lymph % (Auto) 31.9 % 06/09/22 04:34 [place] % (Auto) 6.2 % 06/09/22 04:34 Eos % (Auto) 1.8 % 06/09/22 04:34 Baso % (Auto) 0.3 % 06/09/22 04:34 Neut # (Auto) 5.39 10^3/uL (1.8-7.7) 06/09/22 04:34 Lymph # (Auto) 2.9 10^3/uL (0.8-4.8) 06/09/22 04:34 [place] # (Auto) 0.6 10^3/uL (0.2-0.9) 06/09/22 04:34 Eos # (Auto) 0.2 10^3/uL (0.0-0.8) 06/09/22 04:34 Baso # (Auto) 0.0 10^3/uL (0.0-0.1) 06/09/22 04:34 Nucleated RBC % (auto) 0 % 06/09/22 04:34 Nucleated RBCs # 0.0 /100WBC 06/09/22 04:34 ESR 36 mm/hr (0-15) H 06/06/22 18:00 Specimen Type Arterial 06/06/22 18:41 Sample Site Brachial, left 06/06/22 18:41 ABG pH 7.33 (7.35-7.45) L 06/06/22 18:41 ABG pCO2 20.8 mmHg (35-45) L 06/06/22 18:41 ABG pO2 104.0 mmHg (80.0-100.0) H 06/06/22 18:41 ABG HCO3 10.9 mmol/L (22-26) L 06/06/22 18:41 ABG Base Excess -13.0 mmol/L (-2.0-2.0) L 06/06/22 18:41 Antonio Test N/a 06/06/22 18:41 Hematocrit 37.3 % (37-47) 06/06/22 18:41 O2 Delivery Device Room air 06/06/22 18:41 Applications Instructor ID [place] 06/06/22 18:41 Sodium 140 mmol/L (136-145) 06/10/22 04:51 Potassium 3.8 mmol/L (3.5-5.1) 06/10/22 04:51 Chloride 105 mmol/L (98-107) 06/10/22 04:51 Carbon Dioxide 23 mmol/L (22-29) 06/10/22 04:51 Anion Gap 15.8 (5-19) 06/10/22 04:51 BUN 14 mg/dL (8-23) 06/10/22 04:51 Creatinine 0.7 mg/dL (0.5-0.9) 06/10/22 04:51 GFR Calculation Not Reportable 06/10/22 04:51 Glucose 102 mg/dL (65-115) 06/10/22 04:51 POC Glucose 103 mg/dL (70-110) 06/10/22 06:05 Calculated Osmolality 291 mOsm/kg (285-295) 06/10/22 04:51 Lactic Acid 1.0 mmol/L (0.5-2.2) 06/07/22 02:00 Lactate 2.5 mmol/L (0.5-2.2) H 06/06/22 18:00 Calcium 8.5 mg/dL (8.5-10.5) 06/10/22 04:51 Phosphorus 1.6 mg/dL (2.5-4.5) L 06/08/22 06:12 Magnesium 2.0 mg/dL (1.7-2.3) 06/08/22 06:12 Total Bilirubin 0.3 mg/dL (0.15-1.2) 06/06/22 18:00 AST 8 U/L (0-32) 06/06/22 18:00 ALT 11 U/L (0-33) 06/06/22 18:00 Alkaline Phosphatase 99 U/L (35-105) 06/06/22 18:00 Troponin T Baseline 34 ng/L (0-10) H 06/06/22 18:00 Troponin T 120 Minute 31.26 ng/L (0-10) H 06/06/22 19:47 Delta Troponin T -2.74 ABS# (0-10) L 06/06/22 19:47 Troponin T Hi Sens 6Hr 39.29 ng/L (0-10) H 06/07/22 00:10 Troponin T Hi Sens 6Hr Delta 5.29 ng/L (0-12) 06/07/22 00:10 C-Reactive Protein 20.8 mg/L (0.0-4.9) H 06/06/22 19:47 Total Protein 7.2 g/dL (6.6-8.7) 06/06/22 18:00 Albumin 3.5 g/dL (3.5-5.2) 06/06/22 18:00 Globulin 3.7 g/dL (1.3-4.6) 06/06/22 18:00 Lipase 13 U/L (13-60) 06/06/22 18:00 Procalcitonin 0.15 ng/mL (0-0.5) 06/06/22 19:47 TSH 1.50 uIU/mL (0.27-4.20) 06/06/22 19:47 Urine Color Other (Yellow) 06/06/22 20:27 Urine Appearance Sl cloudy (CLEAR) A 06/06/22 20:27 Urine pH 5 (5-7) 06/06/22 20:27 Ur Specific [place] 1.025 (1.005-1.030) 06/06/22 20:27 Urine Protein 2+ (Negative) H 06/06/22 20:27 Urine Glucose (UA) 4+ (Normal) H 06/06/22 20:27 Urine Ketones 3+ (Negative) H 06/06/22 20:27 Urine Blood 3+ (Negative) H 06/06/22 20:27 Urine Nitrate Negative (Negative) 06/06/22 20: Urine Bilirubin Neg (Negative) 06/06/22 20:27 Urine Urobilinogen Norm mg/dL (Negative) 06/06/22 20:27 Ur Leukocyte Esterase 1+ (Negative) H 06/06/22 20:27 Urine RBC Too numerous to cnt /hpf (0-2) H 06/06/22 20:27 Urine WBC 80-100 /hpf (0-5) H 06/06/22 20:27 Ur Squamous Epith Cells 5-10 /hpf (0-5) H 06/06/22 20:27 Amorphous Sediment Not Reportable 06/06/22 20:27 Urine Bacteria 2+ /hpf (NONE) H 06/06/22 20:27 Fine Granular Casts 0-4 /lpf H 06/06/22 20:27 Serum Ketones Positive (Negative) H 06/06/22 18:00 Vitals Last Vital Signs Temp 98.7 F 06/10/22 04:41 Pulse 90 06/10/22 06:00 Resp 19 H 06/10/22 04:41 BP 169/78 06/10/22 04:41 Pulse Ox 96 06/10/22 04:41 O2 Del Method 06/09/22 19:39 O2 Flow Rate 0 06/09/22 19:39 Discharge Plan Discharge Patient Disposition: Home Condition: Stable Prescriptions: New chlorthalidone 25 mg tablet 25 mg PO DAILY Qty: 30 0RF levofloxacin 750 mg tablet 750 mg PO DAILY 7 Days Qty: 7 0RF Continued aspirin [Adult Low Dose Aspirin] 81 mg tablet,delayed release (DR/EC) 81 mg PO BEDTIME Novolog Flexpen U-100 Insulin 100 unit/mL (3 mL) insulin pen 5 unit SUBCUT TID 30 Days Qty: 4.5 3RF hydrocodone-acetaminophen 10-325 mg tablet 1 tab PO Q8H PRN (Reason: pain) 30 Days Qty: 90 0RF Rx Instructions: Do not fill until 05/22/22 (DME) blood-glucose meter Kit See Rx Instructions .ROUTE .MEDSUPPLY Qty: 1 0RF Rx Instructions: TEST 4 TIMES PER DAY (DME) Accu-Chek Merced Plus test strp Strip See Rx Instructions .ROUTE .MEDSUPPLY Qty: 100 0RF Rx Instructions: TEST QID (DME) pen needle, diabetic [TRUEplus Pen Needle] 32 gauge x 5/32 needle See Rx Instructions .ROUTE .COMPLEX Qty: 100 1RF Dose Instruction: USE DIRECTED Rx Instructions: USE DIRECTED Victoza 3-Moris 0.6 mg/0.1 mL (18 mg/3 mL) pen injector 1.2 mg SUBCUT DAILY multivitamin Tablet 1 tab PO QAM metoprolol tartrate 100 mg tablet 100 mg PO BID ropinirole 0.25 mg tablet 0.25 mg PO BEDTIME rosuvastatin 40 mg tablet 40 mg PO BEDTIME oxycodone-acetaminophen 5-325 mg tablet 1 tab PO Q8H PRN (Reason: pain) Qty: 10 0RF Changed Levemir FlexTouch U-100 Insuln 100 unit/mL (3 mL) insulin pen 60 unit SUBCUT BID Qty: 15 3RF ramipril 5 mg capsule 10 mg PO BEDTIME Qty: 60 0RF Discontinued cefpodoxime 200 mg tablet 200 mg PO BID Qty: 60 1RF Rx Instructions: must administer with a meal/food Discharge Orders: Discharge Order (Routine); Ordered 06/10/22 Ordered By: Abbey Jacinto Referrals: Jane Strickland MD [Primary Care Provider] - Patient Instructions: GI Discharge Instructions, Opioid Safety Discharge Attestations Time Spent in Discharge Care*: less than 30 min Quality Metrics Clinical Quality Measures [ No reported AMI, CVA or VTE this stay] Coding Level of Care Code Acute Chg FW DC note Diagnoses Odynophagia R13.10 Chest pain R07.9
[2022-06-10] MEDS: sodium chloride 0.9% 1,000 ML 30 ML IV (09:20)
--- NOTE | 2022-06-10 09:47 | P.ANESASSM_ITS ---
Pre-Anesthetic Assessment Height/Weight: Height 1.57 m Weight 68.084 kg Temp Pulse Resp BP Pulse Ox O2 Del Method O2 Flow Rate 98.2 F 87 16 136/67 96 0 06/10/22 08:00 06/10/22 08:00 06/10/22 08:00 06/10/22 08:00 06/10/22 08:00 06/10/22 08:00 06/09/22 19:39 Preop Diagnosis: dysphagia Operation Date: 06/10/22 09:00 Proposed Procedures p EGD(Not Applicable) - Jose Guadalupe Washington MD Familial anesthetic complications: none Was Beta Tom taken within 24 hours: Yes Was Clonidine taken within 24 hours: N/A Last intake: Intake Last Liquid Date 06/09/22 Last Liquid Time 23:50 Last Solid Date 06/09/22 Last Solid Time 17:00 Social No alcohol and No tobacco Exam alert, oriented x 3, clear to auscultation bilaterally and regular rate & rhythm Airway Submandibular: within normal limits Cervical ROM: within normal limits Mallampati: Class II Dentition: false Pulmonary None reported CV/HEM Hypertension Chronic Renal Insufficiency Hepatic None reported GI None reported Metabolic Diabetes Mellitus, Hyperlipidemia and Thyroid Disease [facility] Lower Back Pain Anesthetic Plan ASA status: 3 Anesthesia: MAC Risk of > 500 ml blood loss (7ml/kg in children): No Medications/Allergies Home Medications Medication Instructions Recorded Confirmed Last Taken Type aspirin 81 mg tablet,delayed 81 mg PO BEDTIME 10/28/19 06/06/22 06/05/22 History release (Adult Low Dose Aspirin) blood-glucose meter #1 ea 11/19/19 06/06/22 Unknown Rx insulin aspart U-100 100 unit/mL 5 unit (0.05 mL) SUBCUT TID 30 09/26/21 06/06/22 06/06/22 Rx (3 mL) subcutaneous pen (Novo #4.5 mL Flexpen U-100 Insulin aspart) hydrocodone 10 mg-acetaminophen 1 tab PO Q8H PRN pain 30 days #90 03/26/22 08/02/0206/03/22 Rx 325 mg tablet tabs blood sugar diagnostic (Accu-Chek #100 ea 05/09/22 06/06/22 Unknown Rx Merced Plus test strp) pen needle, diabetic 32 gauge x ##100 05/18/22 06/06/22 Unknown Rx (TRUEplus Pen Needle) metoprolol tartrate 100 mg tablet 100 mg PO BID 05/23/22 06/06/22 06/06/22 History multivitamin 1 tab PO QAM 05/23/22 06/06/22 06/06/22 History ropinirole 0.25 mg tablet 0.25 mg PO BEDTIME 05/23/22 06/06/22 06/05/22 History rosuvastatin 40 mg tablet 40 mg PO BEDTIME 05/23/22 06/06/22 06/05/22 History oxycodone-acetaminophen 5 mg-325 1 tab PO Q8H PRN pain #10 tabs 05/25/22 06/06/22 Unknown Rx mg tablet liraglutide 0.6 mg/0.1 mL (18 mg/3 1.2 mg SUBCUT DAILY 06/06/22 06/06/22 Unknown History mL) subcutaneous pen injector (Victoza 3-Moris) chlorthalidone 25 mg tablet 25 mg PO DAILY #30 tabs 06/10/22 Unknown Rx insulin detemir U-100 100 unit/mL 60 unit (0.6 mL) SUBCUT BID #15 mL 06/10/22 06/06/22 06/04/22 Rx (3 mL) subcutaneous pen (Levemir FlexTouch U-100 Insulin) levofloxacin 750 mg tablet 750 mg PO DAILY 7 days #7 tabs 06/10/22 Unknown Rx ramipril 5 mg capsule 10 mg PO BEDTIME #60 caps 06/10/22 06/06/22 06/05/22 Rx Allergies Allergy/AdvReac Type Severity Reaction Status Date / Time gabapentin Allergy hallucinati Verified 06/06/22 19:11 ons Iodinated Contrast Media Allergy Unknown Verified 06/06/22 19:11 nifedipine [From Procardia] Allergy Unknown Verified 06/06/22 19:11 prochlorperazine Allergy Unknown Verified 06/06/22 19:11 [From Compazine] Current Medications Generic Name Dose Route Start Last Admin Trade Name Freq PRN Reason Stop Dose Admin Chlorthalidone 12.5 mg 06/10/22 06:15 06/10/22 06:46 Chlorthalidone 25 Mg Tablet PO 12.5 mg DAILY LIAT Administration Enoxaparin Sodium 40 mg 06/06/22 22:00 06/08/22 22:07 Enoxaparin 40 Mg/0.4 Ml Syringe SUBCUT 40 mg Q24H LIAT Administration Hydromorphone HCl 0.5 mg 06/06/22 21:27 06/10/22 00:37 Hydromorphone 1 Mg/Ml Inj 1 Ml IVP 0.5 mg Q4H PRN Administration PAIN Ceftriaxone Sodium 1,000 mg/ 50 mls @ 100 mls/hr 06/07/22 21:00 06/09/22 22:23 Sodium Chloride IV Infused Q24H [facility] Infusion Protocol Sodium Chloride 1,000 mls @ 30 mls/hr 06/10/22 09:30 06/10/22 09:20 Sodium Chloride 0.9% IV 06/11/22 09:29 30 mls/hr .Q24H LIAT Administration Insulin Glargine 40 unit 06/09/22 13:30 06/09/22 13:31 Insulin Glargine 100 Units/1 Ml SUBCUT 40 unit Q12H LIAT Administration Insulin Human Lispro 0 unit 06/07/22 18:00 06/10/22 07:50 Insulin Lispro 100 Unit/1 Ml SUBCUT Not Given TIDWM [facility] Protocol Metoclopramide HCl 5 mg 06/06/22 21:27 06/09/22 11:12 Metoclopramide 5 Mg/Ml Sdv 2 Ml IVP 5 mg Q6H PRN Administration NAUSEA AND VOMITING Ondansetron HCl 4 mg 06/06/22 21:27 06/09/22 23:25 Ondansetron 2 Mg/Ml Sdv 2 Ml IVP 4 mg Q8H PRN Administration vomiting, or N/V if npo Pantoprazole Sodium 40 mg 06/06/22 21:27 06/09/22 21:52 Pantoprazole 40 Mg Sdv IVP 40 mg Q24H LIAT Administration PFSH Anesthesia Medical History Abdominal pain Acidosis, lactic Anxiety and depression ASHD (arteriosclerotic heart disease) Cataracts, bilateral CKD (chronic kidney disease) Diabetes Diabetic neuropathy Diabetic peripheral neuropathy Fibromyalgia Gastroparesis Hyperlipidemia Hypertension Insomnia Intractable abdominal pain Intractable vomiting with nausea Left renal stone Leukocytosis Migraine Pyuria Ureterolithiasis Surgical History H/O angioplasty H/O carpal tunnel repair H/O: hysterectomy History of cholecystectomy S/P ureteral stent placement Family History Mother , at age 65 Heart attack Father , at age 63 Heart attack Other Diabetes Hypertension Social History Smoking and tobacco status: never smoked Second hand smoke exposure: No Alcohol intake: never Adopted: No Caregiver/support person: Yes (spouse) Lives independently: Yes Household members: spouse Marital status: service: No Current occupational status: retired History of recent travel: No Current gender identity: Female Special vandana needs: No Agree to transfusion: Yes Data Anesthesia : 06/09/22 04:34 06/10/22 04:51 Short CBC 06/09/22 Range/Units 04:34 WBC 9.1 (4.0-10.0) 10^3/uL Hgb 10.5 L (11.5-15.3) g/dL Hct 32.0 L (37.0-47.0) % MCV 90.4 (81-99) fl Plt Count 317 (130-400) 10^3/cmm Neut % (Auto) 59.4 % Neut # (Auto) 5.39 (1.8-7.7) 10^3/uL BMP 06/09/22 06/09/22 06/10/22 04:34 06:23 04:51 Sodium Cancelled Cancelled 140 Potassium Cancelled Cancelled 3.8 Chloride Cancelled Cancelled 105 Carbon Dioxide Cancelled Cancelled 23 BUN Cancelled Cancelled 14 Creatinine Cancelled Cancelled 0.7 Glucose Cancelled Cancelled 102 Calcium Cancelled Cancelled 8.5 ABG 06/06/22 18:41 Specimen Type Arterial Sample Site Brachial, left ABG pH 7.33 L ABG pCO2 20.8 L ABG pO2 104.0 H ABG HCO3 10.9 L ABG Base Excess -13.0 L O2 Delivery Device Room air Cardiac Studies: No Data to Display
--- NOTE | 2022-06-10 10:22 | ANE.PACU2 ---
Inpatient post-anesthesia follow up: Airway intact: Yes Vital signs: Temperature 97.6 F Pulse Rate 97 Respiratory Rate 16 Blood Pressure 188/95 Pulse Oximetry 96 Oxygen Delivery Me thod Room Air Oxygen Flow Rate 4 Fraction of Inspir ed Oxygen Hydration adequate: Yes Nausea and vomiting: No Pain level: 4 Mental status: Baseline
--- NOTE | 2022-06-10 10:40 | PM.MISC ---
Miscellaneous Note Purpose of Documentation: Post EGD note Note: No strictures were noted.? The patient was noted to have moderate esophagitis from the GE junction to 26 cm.? Multiple biopsies were obtained.? 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 She was also noted to have gastritis and duodenitis, but no ulcers were noted.? I will see the patient back in my office in 10 days to discuss biopsy results, as well as management of her reflux esophagitis/Briceño's.
== END 2022-06-10 10:58 | disposition home health service (06) | DRG 638 ==
LOC: ER 06-07 01:18 → ICU 06-07 07:04 → MEDSURG 06-09 21:32
PROVIDERS: Family Medicine; Admitting Provider Family Medicine; Emergency Provider Emergency Medicine; PCP Family Medicine; Visit Provider Internal Medicine
PROC: 0DJ08ZZ Inspection of Upper Intestinal Tract, Via Natural or Artificial Opening Endoscopic (ICD-10-PCS; CPT 43235; principal; 2022-06-10 09:00)
DX: E11.10 Type 2 diabetes mellitus with ketoacidosis without coma (principal); N12 Tubulo-interstitial nephritis, not specified as acute or chronic; E11.43 Type 2 diabetes mellitus with diabetic autonomic (poly)neuropathy; K31.84 Gastroparesis; Z79.4 Long term (current) use of insulin; E11.22 Type 2 diabetes mellitus with diabetic chronic kidney disease; N18.9 Chronic kidney disease, unspecified; N20.0 Calculus of kidney; Z87.442 Personal history of urinary calculi; I12.9 Hypertensive chronic kidney disease with stage 1 through stage 4 chronic kidney disease, or unspecified chronic kidney disease; Z96.0 Presence of urogenital implants; E78.2 Mixed hyperlipidemia; R13.10 Dysphagia, unspecified; Z66 Do not resuscitate; K21.00 Gastro-esophageal reflux disease with esophagitis, without bleeding; K29.80 Duodenitis without bleeding; K29.70 Gastritis, unspecified, without bleeding; K44.9 Diaphragmatic hernia without obstruction or gangrene
CPT/HCPCS: 12345; 36415; 36416; 36600; 43239; 71045; 74176; 76000; 80048; 80053; 81001; 82009; 82365; 82803; 82962; 83605; 83690; 83735; 84100; 84145; 84443; 84484; 85025; 85651; 86140; 87040; 87086; 88300; 88305; 88342; 93005; 96365; 96366; 96367; 96372; 96375; 97116; 97161; 99291; C2625; C9113; J0696; J1100; J1170; J1630; J1650; J1815; J1956; J2370; J2405; J2704; J2710; J2765; J3010; J3370; J3480; J3490; J7030; J7050

== ENCOUNTER 2022-06-11 15:24 | Outpatient (CLI) | payer MEDICARE, OTHER, SELFPAY ==
--- NOTE | 2022-06-11 15:46 | XR_ITS ---
WS: [id number] Exam: XR KUB [id number] Date/Time of Exam: 06/11/2022 3:46 PM Reason For Exam: STONES No bowel obstruction or free air. A left-sided ureteral catheter is in place appearing to be in appro priate location. Small calcification superimpose both renal silhouettes. Organ margins are obscured. Large amount of stool in the right colon. No sign of organ enlargement. Bony structures are intact. XR/XR KUB [id number] IMPRESSION: 1. Left-sided ureteral stent catheter in satisfactory location. 2. Small calcifications superimpose both renal silhouettes and may represent r enal stones. 3. Constipation.
== END 2022-06-11 15:25 | disposition home or self-care (01) ==
LOC: RAD 15:27
PROVIDERS: PCP Family Medicine; Visit Provider Urology
DX: N20.9 Urinary calculus, unspecified (principal); B37.3 Candidiasis of vulva and vagina; Z96.0 Presence of urogenital implants
CPT/HCPCS: 52310; 74018; 81003; 99213

== ENCOUNTER 2022-07-02 05:45 | Emergency (ER) | payer MEDICARE, OTHER, SELFPAY ==
[2022-07-02 05:48] VITALS: BP 106/49; PULSE 88; RESP 18; TEMP 37.1; O2SAT 94; BMI 25.9
[2022-07-02 05:54] VITALS: BP 115/49; O2SAT 95
--- NOTE | 2022-07-02 05:54 | CTR_ITS ---
PROCEDURE INFORMATION: Exam: CT Abdomen And Pelvis Without Contrast Exam date and time: 07/02/2022 6:12 AM Age: 76 years old Clinical indication: Nausea and vomiting; Prior surgery; Surgery type: Hyst, gb; Additional info: Abdominal pain TECHNIQUE: Imaging protocol: Computed tomography of the abdomen and pelvis without contrast. Radiation optimization: All CT scans at this facility use at least one of these dose optimization techniques: automated exposure control; mA and/or kV adjustment per patient size (includes targeted exams where dose is matched to clinical indication); or iterative reconstruction. COMPARISON: CT abdomen pelvis wo con [id number] 06/06/2022 7:05 PM RADIATION DOSE METRICS: Total DLP (mGy-cm): 484.74 FINDINGS: Lungs: The lung bases are clear. Diaphragm: Small hiatal hernia. There may be some mucosal/wall thickening involving the lower esophagus. This is nonspecific, but could represent evidence for esophagitis. Neoplasm not entirely excluded. Please correlate clinically. Liver: Unremarkable. Gallbladder and bile ducts: Prior cholecystectomy. Mild biliary tree dilation, with common duct measuring up to 13-14 mm. Previously the common duct measured 11-12 mm. Borderline intrahepatic biliary prominence. No visible common duct stone by CT. Significance uncertain. Correlation with laboratory/bilirubin levels may be helpful to determine if there is any significant biliary obstruction. Pancreas: Unremarkable. Spleen: Unremarkable. Adrenal glands: Unremarkable. Kidneys and ureters: A few small intrarenal calculi bilaterally, more numerous on the right. Right renal parenchymal scarring and cortical calcifications also again noted. The previously seen left ureteral stent has been removed in the interval. No hydronephrosis of either kidney. No visible ureteral calculus. No perinephric fluid. Stomach and bowel: Possibility of slightly thickened mucosa/wall in the distal stomach. This is a nonspecific appearance, and well be transient on CT, but could also represent evidence for gastritis or peptic ulcer disease. Please correlate clinically. No significant bowel distention. There are no CT findings to strongly suggest diverticulitis. Prominent amount of stool in the ascending and transverse colon. Appendix: The appendix is not identified with certainty, however no pericecal inflammatory changes are seen. Intraperitoneal space: No free intraperitoneal air, or ascites. There is prominent increased attenuation in the mesenteric fat, increased in the interval. As before, there are are several borderline prominent mesenteric lymph nodes. This overall appearance is nonspecific and of uncertain significance. Some type of mesenteritis should be considered. Please correlate clinically. Neoplasm such as lymphoma for an etiology is felt significantly less likely, not excluded. Vasculature: Prominent aortic calcifications. No evidence for abdominal aortic aneurysm. Lymph nodes: No retroperitoneal adenopathy. Urinary bladder: The urinary bladder appears somewhat distended at the time of scanning. The urinary bladder measures 12 x 7.5 x 10 cm, estimated volume approximately 470 cc. Please correlate clinically. No visible calculus in the bladder. Reproductive: Prior hysterectomy. No definite ovarian/adnexal cyst or mass by CT. Bones/joints: No significant acute finding. Soft tissues: No significant acute finding. CT/CT abdomen pelvis wo con [id number] IMPRESSION: 1. No free air or significant bowel distention. No evidence for bowel obstruction. 2. Prominent increased attenuation in the mesenteric fat, see above discussion. 3. Somewhat distended urinary bladder, details above. 4. Bilateral intrarenal calculi. No hydronephrosis of either kidney. No visible ureteral calculus. 5. Possible thickened mucosa/wall in the distal stomach, see above discussion. 6. Prior cholecystectomy. Mild biliary tree dilation, see above discussion. 7. No evidence to suggest appendicitis or diverticulitis, however a normal appendix is not definitely visible. 8. Small hiatal hernia. Possibly some thickening of the lower esophagus, see above discussion. 9. Other findings discussed above.
[2022-07-02] MEDS: sodium chloride 0.9% 1,000 ML 999 ML IV (06:05)
[2022-07-02 06:08] LABS: Basophils % 0.2 %; Eosinophils # 0.2 10^3/uL (0.0-0.8); Eosinophils % 1.6 %; Hematocrit 31.7 % (37.0-47.0); Hemoglobin 9.9 g/dL (11.5-15.3); Lymphocytes # 1.8 10^3/uL (0.8-4.8); Lymphocytes % 17.7 %; Mean Corpuscular HGB Conc 31.2 g/dL (30.0-36.0); Mean Corpuscular Hemoglobin 29.4 pg (28.0-34.0); Mean Corpuscular Volume 94.1 fl (81-99); Mean Platelet Volume 11.3 fL (7.4-10.4); Monocytes # 0.6 10^3/uL (0.2-0.9); Monocytes % 5.5 %; Neutrophils # 7.53 10^3/uL (1.8-7.7); Neutrophils % 74.7 %; Nucleated Red Blood Cells % 0 %; Platelet Count 205 10^3/cmm (130-400); Red Blood Count 3.37 10^6/uL (4.1-5.3); Red Cell Distribution Width 13.8 % (12.1-15.1); White Blood Count 10.1 10^3/uL (4.0-10.0)
[2022-07-02 06:25] LABS: Alanine Aminotransferase 23 U/L (0-33); Albumin Level 3.4 g/dL (3.5-5.2); Alkaline Phosphatase 116 U/L (35-105); Anion Gap 11.8 (5-19); Aspartate Amino Transferase 44 U/L (0-32); Blood Urea Nitrogen 57 mg/dL (8-23); C Reactive Protein 47.3 mg/L (0.0-4.9); Calcium 8.5 mg/dL (8.5-10.5); Carbon Dioxide 27 mmol/L (22-29); Chloride 101 mmol/L (98-107); Globulin 2.9 g/dL (1.3-4.6); Glucose 82 mg/dL (65-115); Lipase 29 U/L (13-60); Osmolality Calculated 297 mOsm/kg (285-295); Potassium 3.8 mmol/L (3.5-5.1); Sodium 136 mmol/L (136-145); Total Bilirubin 0.3 mg/dL (0.15-1.2); Total Protein 6.3 g/dL (6.6-8.7)
[2022-07-02 06:26] LABS: Lactate (Lactic Acid level) 0.8 mmol/L (0.5-2.2)
--- NOTE | 2022-07-02 06:38 | ED_ITS ---
HPI - Nausea/Vomiting/Diarrhea General: Chief complaint: Nausea/Vomiting/Diarrhea Stated complaint: N/V Time Seen by Provider: 07/02/22 05:53 Source: patient and EMS Mode of arrival: EMS Limitations: no limitations History of Present Illness: 76-year-old female states that she been having nausea vomiting along with some diffuse abdominal pain since midnight. States her pain is cramping in nature rates it a 3 out of 10 she states she has had multiple episodes of vomiting is not been able to tolerate any p.o. denies any diarrhea denies any fever denies any worsening improving factors. Associated nausea: Yes Associated symtoms: Reports nausea; Denies chest pain, dysuria or headache(s) Review of Systems Const: Denies: fever(s), chills, body aches or change in appetite Eyes: Denies: blurry vision or eye discomfort ENMT: Denies: throat pain or dental pain Card: Denies: chest pain Resp: Denies: dyspnea GI: Reports: abdominal pain, nausea and vomiting : Denies: dysuria Musc: Denies: neck pain or back pain Skin/Breast: Denies: rash Neuro: Denies: headache(s) Psych: Denies: depression Alen/Lymph: Denies: easy bruising All/Imm: Denies: urticaria PFSH ED PFSH: Medical History Abdominal pain Acidosis, lactic Anxiety and depression ASHD (arteriosclerotic heart disease) Cataracts, bilateral Chest pain CKD (chronic kidney disease) Diabetes Diabetic ketoacidosis Diabetic neuropathy Diabetic peripheral neuropathy Fibromyalgia Gastroparesis Gram-positive bacteremia Hyperlipidemia Hypertension Insomnia Intractable abdominal pain Intractable vomiting with nausea Left renal stone Leukocytosis Migraine Nausea and vomiting Odynophagia Pyelonephritis Pyuria Ureterolithiasis Surgical History H/O angioplasty H/O carpal tunnel repair H/O: hysterectomy History of cholecystectomy S/P ureteral stent placement Family History Mother , at age 65 Heart attack Father , at age 63 Heart attack Other Diabetes Hypertension Social History Smoking and tobacco status: never smoked Second hand smoke exposure: No Alcohol intake: never Adopted: No Caregiver/support person: Yes (spouse) Lives independently: Yes Household members: spouse Marital status: service: No Current occupational status: retired History of recent travel: No Current gender identity: Female Special vandana needs: No Agree to transfusion: Yes Physical Exam Const: COMMON NORMALS: no acute distress, patient oriented x3 and healthy appearing HENMT: COMMON NORMALS: normocephalic and atraumatic HEAD & SCALP: no rmocephalic and atraumatic Eye: COMMON NORMALS: Equal, round and reactive pupils present and EOMs intact bilaterally PUPIL: Yes Equal, round and reactive pupils present Neck/C-Spine: COMMON NORMALS: full ROM and supple Chest: COMMONS NORMALS: normal inspection of the chest and normal palpation of entire chest wall Resp: COMMON NORMALS: normal respiratory effort, No retractions, No use of accessory muscles and clear to auscultation bilaterally AUSCULTATION: clear to auscultation bilaterally Cardio: COMMON NORMALS: regular rate, regular rhythm and No murmurs present (Cardio) RATE: regular rate RHYTHM: regular rhythm GI: COMMON NORMALS: Normal to inspection, nondistended, normoactive bowel sounds present, Soft to palpation and no masses PALPATION: Yes Soft to palpation OTHER: diffuse mild tenderness Extremity: COMMON NORMALS: normal to inspection and full ROM Neuro: COMMON NORMALS: patient oriented x3, moves all extremities and no focal motor deficits Psych: COMMON NORMALS: mental status grossly normal, Normal thought process present and cooperative THOUGHT PROCESS: Normal thought process present Skin: COMMON NORMALS: no rashes or lesions noted and no wounds GENERAL SKIN EXAM: no rashes or lesions noted Course Vital Signs: Vital signs: Vital Signs Temperature 98.8 F 07/02/22 05:48 Pulse Rate 96 07/02/22 07:30 Respiratory Rate 16 07/02/22 07:56 Blood Pressure 124/60 07/02/22 07:30 Pulse Oximetry 96 07/02/22 07:56 Oxygen Delivery Ny thod 07/02/22 06:46 MDM - Nausea/Vomiting/Diarrhea Medical Decision Making Patient presents here with vomiting along with some upper abdominal pain. 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 We will prescribe her Zofran she is to follow-up with Dr. Washington in 2 to 4 days return if worsening she understands agrees to plan. Lab Data : 07/02/22 06:03 07/02/22 06:03 Radiology Impressions Abdomen/Pelvis CT 07/02/22 05:54 IMPRESSION: 1. No free air or significant bowel distention. No evidence for bowel obstruction. 2. Prominent increased attenuation in the mesenteric fat, see above discussion. 3. Somewhat distended urinary bladder, details above. 4. Bilateral intrarenal calculi. No hydronephrosis of either kidney. No visible ureteral calculus. 5. Possible thickened mucosa/wall in the distal stomach, see above discussion. 6. Prior cholecystectomy. Mild biliary tree dilation, see above discussion. 7. No evidence to suggest appendicitis or diverticulitis, however a normal appendix is not definitely visible. 8. Small hiatal hernia. Possibly some thickening of the lower esophagus, see above discussion. 9. Other findings discussed above. Laboratory Results WBC 10.1 10^3/uL (4.0-10.0) H 07/02/22 06:03 RBC 3.37 10^6/uL (4.1-5.3) L 07/02/22 06:03 Hgb 9.9 g/dL (11.5-15.3) L 07/02/22 06:03 Hct 31.7 % (37.0-47.0) L 07/02/22 06:03 MCV 94.1 fl (81-99) 07/02/22 06:03 MCH 29.4 pg (28.0-34.0) 07/02/22 06:03 MCHC 31.2 g/dL (30.0-36.0) 07/02/22 06:03 RDW 13.8 % (12.1-15.1) 07/02/22 06:03 Plt Count 205 10^3/cmm (130-400) 07/02/22 06:03 MPV 11.3 fL (7.4-10.4) H 07/02/22 06:03 Neut % (Auto) 74.7 % 07/02/22 06:03 Lymph % (Auto) 17.7 % 07/02/22 06:03 [place] % (Auto) 5.5 % 07/02/22 06:03 Eos % (Auto) 1.6 % 07/02/22 06:03 Baso % (Auto) 0.2 % 07/02/22 06:03 Neut # (Auto) 7.53 10^3/uL (1.8-7.7) 07/02/22 06:03 Lymph # (Auto) 1.8 10^3/uL (0.8-4.8) 07/02/22 06:03 [place] # (Auto) 0.6 10^3/uL (0.2-0.9) 07/02/22 06:03 Eos # (Auto) 0.2 10^3/uL (0.0-0.8) 07/02/22 06:03 Baso # (Auto) 0.0 10^3/uL (0.0-0.1) 07/02/22 06:03 Nucleated RBC % (auto) 0 % 07/02/22 06:03 Nucleated RBCs # 0.0 /100WBC 07/02/22 06:03 Sodium 136 mmol/L (136-145) 07/02/22 06:03 Potassium 3.8 mmol/L (3.5-5.1) 07/02/22 06:03 Chloride 101 mmol/L (98-107) 07/02/22 06:03 Carbon Dioxide 27 mmol/L (22-29) 07/02/22 06:03 Anion Gap 11.8 (5-19) 07/02/22 06:03 BUN 57 mg/dL (8-23) H 07/02/22 06:03 Creatinine 2.4 mg/dL (0.5-0.9) H 07/02/22 06:03 GFR Calculation Not Reportable 07/02/22 06:03 Glucose 82 mg/dL (65-115) 07/02/22 06:03 Calculated Osmolality 297 mOsm/kg (285-295) H 07/02/22 06:03 Lactate 0.8 mmol/L (0.5-2.2) 07/02/22 06:03 Calcium 8.5 mg/dL (8.5-10.5) 07/02/22 06:03 Total Bilirubin 0.3 mg/dL (0.15-1.2) 07/02/22 06:03 AST 44 U/L (0-32) H 07/02/22 06:03 ALT 23 U/L (0-33) 07/02/22 06:03 Alkaline Phosphatase 116 U/L (35-105) H 07/02/22 06:03 C-Reactive Protein 47.3 mg/L (0.0-4.9) H 07/02/22 06:03 Total Protein 6.3 g/dL (6.6-8.7) L 07/02/22 06:03 Albumin 3.4 g/dL (3.5-5.2) L 07/02/22 06:03 Globulin 2.9 g/dL (1.3-4.6) 07/02/22 06:03 Lipase 29 U/L (13-60) 07/02/22 06:03 Urine Color Straw (Yellow) 07/02/22 06:32 Urine Appearance Clear (CLEAR) 07/02/22 06:32 Urine pH 7 (5-7) 07/02/22 06:32 Ur Specific [place] 1.005 (1.005-1.030) 07/02/22 06:32 Urine Protein Trace (Negative) 07/02/22 06:32 Urine Glucose (UA) Norm (Normal) 07/02/22 06:32 Urine Ketones Negative (Negative) 07/02/22 06:32 Urine Blood 2+ (Negative) H 07/02/22 06:32 Urine Nitrate Negative (Negative) 07/02/22 06:32 Urine Bilirubin Neg (Negative) 07/02/22 06:32 Urine Urobilinogen Norm mg/dL (Negative) 07/02/22 06:32 Ur Leukocyte Esterase Trace (Negative) H 07/02/22 06:32 Urine RBC 0-4 /hpf (0-2) H 07/02/22 06:32 Urine WBC 15-25 /hpf (0-5) H 07/02/22 06:32 Ur Squamous Epith Cells 0-4 /hpf (0-5) H 07/02/22 06:32 Ur Transition Epith Cell 0-4 /hpf 07/02/22 06:32 Amorphous Sediment Not Reportable 07/02/22 06:32 Urine Bacteria 1+ /hpf (NONE) H 07/02/22 06:32 EKG Data EKG 1: I personally reviewed and interpreted this EKG as follows: EKG interpretation date: 07/02/22 EKG interpretation time: 07:30 Interpretation: nsr hr [address] elevation qrs 139 qtc 476 Discharge Plan Discharge Patient Disposition: Home Clinical Impression: Vomiting, Abdominal pain Condition: Stable Prescriptions: New hydrocodone-acetaminophen 5-325 mg tablet 1 tab PO Q6H PRN (Reason: pain) Qty: 14 0RF Protonix 40 mg tablet,delayed release (DR/EC) 40 mg PO DAILY Qty: 60 0RF ondansetron 4 mg tablet,disintegrating 4 mg PO Q6H PRN (Reason: nausea and vomiting) Qty: 14 0RF No Action aspirin [Adult Low Dose Aspirin] 81 mg tablet,delayed release (DR/EC) 81 mg PO BEDTIME Novolog Flexpen U-100 Insulin 100 unit/mL (3 mL) insulin pen 5 unit SUBCUT TID 30 Days Qty: 4.5 3RF Levemir FlexTouch U-100 Insuln 100 unit/mL (3 mL) insulin pen 80 unit SUBCUT BID fluconazole 150 mg tablet 150 mg PO DAILY Qty: 3 3RF ondansetron 4 mg tablet,disintegrating 4 mg PO Q8H 3 Days Qty: 9 0RF hydrocodone-acetaminophen 10-325 mg tablet 1 tab PO Q8H PRN (Reason: pain) 30 Days Qty: 90 0RF Rx Instructions: Do not fill until 05/22/22 ([facility] [place] blood-glucose meter Kit See Rx Instructions .ROUTE .MEDSUPPLY Qty: 1 0RF Rx Instructions: TEST 4 TIMES PER DAY (DME) Accu-Chek [place] Plus test strp Strip See Rx Instructions .ROUTE .MEDSUPPLY Qty: 100 0RF Rx Instructions: TEST QID (DME) pen needle, diabetic [TRUEplus Pen Needle] 32 gauge x 5/32 needle See Rx Instructions .ROUTE .COMPLEX Qty: 100 1RF Dose Instruction: USE DIRECTED Rx Instructions: USE DIRECTED Victoza 3-Moris 0.6 mg/0.1 mL (18 mg/3 mL) pen injector 1.2 mg SUBCUT DAILY chlorthalidone 25 mg tablet 25 mg PO DAILY Qty: 30 0RF ramipril 5 mg capsule 10 mg PO BEDTIME Qty: 60 0RF multivitamin Tablet 1 tab PO QAM metoprolol tartrate 100 mg tablet 100 mg PO BID ropinirole 0.25 mg tablet 0.25 mg PO BEDTIME rosuvastatin 40 mg tablet 40 mg PO BEDTIME oxycodone-acetaminophen 5-325 mg tablet 1 tab PO Q8H PRN (Reason: pain) Qty: 10 0RF Discharge Orders: Discharge ED (Routine); Ordered 07/02/22 Ordered By: Bianca Liao Referrals: Jose Guadalupe Washington MD [Physician] - 1-3 days Discharge Diet: Advance as tolerated Discharge Activity: Resume usual activity Patient Instructions: Acute Nausea and Vomiting (ED), Abdominal Pain (ED) Coding Level of Care Code ED Ems Helicopter Pilot for Chg Fwd Exam Comprehensive
[2022-07-02 06:46] VITALS: RESP 19; O2SAT 98
[2022-07-02] MEDS: ondansetron 2 mg/ML SDV 2 mL 4 MG IVP (06:46)
--- NOTE | 2022-07-02 06:47 | PC.NURSE ---
report given to shani gutierrez
[2022-07-02 07:07] LABS: Blood Urine 2+ (Negative); Glucose Urine UA Norm (Normal); Ketones Urine Negative (Negative); Protein Urine Trace (Negative); Specific Gravity, Urine 1.005 (1.005-1.030); Urine Appearance Clear (CLEAR); Urine Color Straw (Yellow); pH Urine 7 (5-7)
[2022-07-02 07:08] LABS: Add Urine Culture? Yes; Add Urine Microscopic? YES; Bacteria Urine 1+ /hpf; Bilirubin Urine Neg (Negative); Leukocyte Esterase Urine Trace (Negative); Nitrate Urine Negative (Negative); RBC Urine 0-4 /hpf (0-2); Squamous Epithelial Cell Urine 0-4 /hpf (0-5); Transitional Epi Cells Urine 0-4 /hpf; Urobilinogen Urine Norm (Negative); WBC Urine 15-25 /hpf (0-5)
[2022-07-02] MEDS: sodium chloride 0.9% 500 ML 999 ML IV (07:11)
[2022-07-02 07:30] VITALS: BP 124/60; PULSE 96; RESP 16; O2SAT 95
--- NOTE | 2022-07-02 07:30 | ECG_ITS ---
[facility] Test Date: 2022-07-02 Pat Name: Evelyn Farley Department: Room: Gender: Female Seam Checker: : 1945 Requested By: Bianca Liao Order Number: [id number] Beverley MD: Kvng Demarco M.D. Measurements Intervals Fowler Rate: 92 P: 71 GA: 183 QRS: 1 QRSD: 139 T: 112 QT: 426 QTc: 529 Interpretive Statements SINUS RHYTHM LEFT BUNDLE BRANCH BLOCK [120+ ms QRS DURATION, 80+ ms Q/S IN V1/V2, 85+ ms R IN I/aVL/V5/V6] Compared to ECG 06/07/2022 09:01:38 Left bundle-branch block now present Sinus tachycardia no longer present Intraventricular conduction delay no longer present T-wave abnormality no longer present Possible ischemia no longer present Electronically Signed On 07-02-2022 7:37:43 CDT by Kvng Demarco M.D. [id number]
[2022-07-02 07:56] VITALS: RESP 16; O2SAT 96
[2022-07-02] MEDS: HYDROmorphone 1 mg/mL INJ 1 mL 0.5 MG IVP (07:56)
[2022-07-02 08:06] VITALS: BP 117/56; PULSE 95; O2SAT 95
== END 2022-07-02 08:05 | disposition home or self-care (01) ==
PROVIDERS: Emergency Medicine; Emergency Provider Emergency Medicine
DX: R11.11 Vomiting without nausea (principal); R10.9 Unspecified abdominal pain; Z79.82 Long term (current) use of aspirin; Z79.4 Long term (current) use of insulin; E11.9 Type 2 diabetes mellitus without complications; E78.5 Hyperlipidemia, unspecified; I10 Essential (primary) hypertension
CPT/HCPCS: 74176; 80053; 81001; 83605; 83690; 85025; 86140; 87086; 93005; 96361; 96374; 96375; 99285; J1170; J2405; J7030; J7040

== ENCOUNTER 2022-07-04 22:21 | Emergency (ER) | payer MEDICARE, OTHER, SELFPAY ==
[2022-07-04 22:36] VITALS: BP 97/61; PULSE 86; RESP 14; TEMP 37.9; O2SAT 95; BMI 25.9
[2022-07-04 22:59] LABS: Glucose Point of Care 109 mg/dL (70-110)
--- NOTE | 2022-07-05 00:30 | CTR_ITS ---
PROCEDURE INFORMATION: Exam: CT Abdomen And Pelvis Without Contrast Exam date and time: 07/05/2022 1:00 AM Age: 76 years old Clinical indication: Abdominal pain; Generalized; Prior surgery; Surgery type: Gb. Hysterectomy; Patient HX: Diffuse abd pain with nausea; Additional info: Abd pain, vomiting TECHNIQUE: Imaging protocol: Computed tomography of the abdomen and pelvis without contrast. Radiation optimization: All CT scans at this facility use at least one of these dose optimization techniques: automated exposure control; mA and/or kV adjustment per patient size (includes targeted exams where dose is matched to clinical indication); or iterative reconstruction. COMPARISON: CT abdomen pelvis wo con [id number] 07/02/2022 6:12 AM RADIATION DOSE METRICS: Total DLP (mGy-cm): 537.53 FINDINGS: Lungs: Minimal linear scarring is seen in the lung bases. Mild left lower lobe atelectasis is seen. Unchanged moderate mitral annulus ossifications are seen. Liver: See Gallbladder and bile ducts finding. Gallbladder and bile ducts: Status post prior cholecystectomy. Unchanged dilated extrahepatic/common bile duct with maximal diameter of 1.5 cm. Some distal tapering. No calcified stones. Pancreas: Unchanged mild fatty atrophic changes of the pancreas are noted. Spleen: Appears unremarkable on the non-contrast CT. No splenomegaly. Adrenal glands: Normal. No mass. Kidneys and ureters: Unchanged right kidney mid zone and lower pole 1-3 mm calculi are seen (at least 6). Unchanged left kidney mid zone 1 x 1 mm calculus is seen. Unchanged mildly lobulated contour of both kidneys. Unchanged right kidney lower pole cortical scarring. No hydronephrosis, ureterectasis or ureteral calculi. Stomach and bowel: The noncontrast opacified stomach appears unremarkable. Unchanged small sliding type hiatal hernia is seen. The noncontrast opacified small bowel loops appear unremarkable. The noncontrast opacified loops of colon in the abdomen and pelvis show mild to moderate constipation. The lack of orally administered contrast material limits assessment. Appendix: No appendix is specifically identified. There is no evidence of fluid collections or inflammatory stranding in the right lower quadrant. Intraperitoneal space: No abdominal ascites. No free air. Some benign phleboliths seen in the pelvis. Vasculature: No abdominal aortic aneurysm. Unchanged severe atherosclerotic vascular calcifications. Lymph nodes: Unchanged mild mid mesentery fat stranding is seen with some subcentimeter lymph nodes. This is suggestive of mesenteritis. No enlarged periportal, para-aortic or aortocaval lymph nodes. Urinary bladder: No bladder debris. No wall thickening. Reproductive: Status post prior hysterectomy. Bones/joints: No acute osseous abnormality seen. Unchanged mild hip degenerative changes are seen. There is osteopenia. Soft tissues: Unremarkable. CT/CT abdomen pelvis wo con [id number] IMPRESSION: 1. No acute abnormality seen on the non-contrast abdominal and pelvic CT. 2. Status post prior cholecystectomy. Unchanged dilated extrahepatic/common bile duct. No calcified stones. 3. Unchanged bilateral intrarenal calculi. No hydronephrosis, ureterectasis or ureteral calculi. 4. Mild to moderate constipation. 5. Unchanged mid mesentery fat stranding/mesenteritis.
--- NOTE | 2022-07-05 00:33 | W.ED.ABDPA2 ---
HPI - Abdominal Pain General: Chief Complaint: Weakness Stated Complaint: weakness, confusion Time Seen by Provider: 07/05/22 00:18 History of Present Illness: 76-year-old female presents with some abdominal pain is kind of diffuse, multiple episodes of vomiting today. Daughter reports that she is also having some hallucination and seeing kids in a dog but was not there. Patient with a mild fever. She has no known sick contacts. She reports she is passing gas. She denies any diarrhea or constipation. She denies having any urinary complaints. Associated Symptoms: Reports fever(s), nausea and vomiting; Denies constipation, diarrhea and dysuria Review of Systems Const: Reports: fever(s) and malaise Eyes: Denies: change in vision or blurry vision ENMT: Denies: throat pain or ear or mastoid pain Card: Denies: chest pain or palpitations Resp: Denies: dyspnea, productive cough or wheezing GI: Reports: abdominal pain, nausea and vomiting; Denies: diarrhea or constipation : Denies: flank pain or dysuria Musc: Denies: neck pain or back pain Skin/Breast: Denies: rash or pruritus Neuro: Denies: headache(s) Psych: Reports: visual hallucinations PFSH ED PFSH: Medical History Abdominal pain Acidosis, lactic Anxiety and depression ASHD (arteriosclerotic heart disease) Cataracts, bilateral Chest pain CKD (chronic kidney disease) Diabetes Diabetic ketoacidosis Diabetic neuropathy Diabetic peripheral neuropathy Fibromyalgia Gastroparesis Gram-positive bacteremia Hyperlipidemia Hypertension Insomnia Intractable abdominal pain Intractable vomiting with nausea Left renal stone Leukocytosis Migraine Nausea and vomiting Odynophagia Pyelonephritis Pyuria Ureterolithiasis Surgical History H/O angioplasty H/O carpal tunnel repair H/O: hysterectomy History of cholecystectomy S/P ureteral stent placement Family History Mother , at age 65 Heart attack Father , at age 63 Heart attack Other Diabetes Hypertension Social History Smoking and tobacco status: never smoked Second hand smoke exposure: No Alcohol intake: never Adopted: No Caregiver/support person: Yes (spouse) Lives independently: Yes Household members: spouse Marital status: service: No Current occupational status: retired History of recent travel: No Current gender identity: Female Special vandana needs: No Agree to transfusion: Yes Physical Exam Const: COMMON NORMALS: patient oriented x3 and alert HENMT: COMMON NORMALS: hearing grossly normal bilaterally Eye: COMMON NORMALS: Equal, round and reactive pupils present and EOMs intact bilaterally PUPIL: Yes Equal, round and reactive pupils present Resp: COMMON NORMALS: normal respiratory effort, No use of accessory muscles and clear to auscultation bilaterally AUSCULTATION: clear to auscultation bilaterally Cardio: COMMON NORMALS: regular rate and regular rhythm RATE: regular rate RHYTHM: regular rhythm GI: PALPATION: Yes Tenderness to palpation present (GI) Details: other (Diffuse) and Yes Guarding due to palpation present (GI) : COMMON NORMALS: Yes no CVA tenderness BLADDER/KIDNEY EXAM: Yes no CVA tenderness Back/Pelvis: COMMON NORMALS: no CVA tenderness Extremity: COMMON NORMALS: normal to inspection and full ROM Neuro: COMMON NORMALS: patient oriented x3, CN's II-XII intact bilaterally and moves all extremities SENSORIUM/ORIENTATION: Yes alert Psych: COMMON NORMALS: mental status grossly normal, Normal thought process present, cooperative, normal affect and speech normal SPEECH: Yes normal speech THOUGHT PROCESS: Normal thought process present Skin: COMMON NORMALS: no rashes or lesions noted GENERAL SKIN EXAM: no rashes or lesions noted Course Vital Signs: Vital signs: Vital Signs Temperature 100.3 F H 07/04/22 22:36 Pulse Rate 86 07/04/22 22:36 Respiratory Rate 14 07/04/22 22:36 Blood Pressure 97/61 07/04/22 22:36 Pulse Oximetry 95 07/04/22 22:36 Oxygen Delivery Me thod 07/04/22 22:36 MDM - Abdominal Pain Medical Decision Making Patient's urine is concerning for urinary tract infection. Patient CT shows some mesenteric-itis which is likely the cause of her abdominal pain along with some constipation. Patient has slight elevation of her creatinine. She was given some IV fluids in the ER. Patient given Rocephin IV and will be started on Keflex. Discussed with patient and family that her pain is probably from the mesenter-itis. Recommended some Tylenol ibuprofen. Patient should follow closely with her primary care provider to recheck her urine and fall and ensure that mesenteritis improved. She should return the ER with any concerns or worsening symptoms. Patient was stable at discharge Lab Data : 07/05/22 01:22 07/05/22 01:22 Labs/Radiology: Radiology Impressions Abdomen/Pelvis CT 07/05/22 00:30 IMPRESSION: 1. No acute abnormality seen on the non-contrast abdominal and pelvic CT. 2. Status post prior cholecystectomy. Unchanged dilated extrahepatic/common bile duct. No calcified stones. 3. Unchanged bilateral intrarenal calculi. No hydronephrosis, ureterectasis or ureteral calculi. 4. Mild to moderate constipation. 5. Unchanged mid mesentery fat stranding/mesenteritis. Laboratory Results WBC 12.9 10^3/uL (4.0-10.0) H 07/05/22 01: RBC 3.19 10^6/uL (4.1-5.3) L 07/05/22 01: Hgb 9.5 g/dL (11.5-15.3) L 07/05/22 01: Hct 30.9 % (37.0-47.0) L 07/05/22 01: MCV 96.9 fl (81-99) 07/05/22 01: MCH 29.8 pg (28.0-34.0) 07/05/22: MCHC 30.7 g/dL (30.0-36.0) 07/05/22 01: RDW 14.0 % (12.1-15.1) 07/05/22 01: Plt Count 250 10^3/cmm (130-400) 07/05/22 01:22 MPV 11.1 fL (7.4-10.4) H 07/05/22 01: Neut % (Auto) 84.0 % 07/05/22 01: Lymph % (Auto) 11.1 % 07/05/22 01: [place] % (Auto) 3.9 % 07/05/22 01: Eos % (Auto) 0.2 % 07/05/22 01: Baso % (Auto) 0.2 % 07/05/22 01: Neut # (Auto) 10.87 10^3/uL (1.8-7.7) H 09/22/22 01:22 Lymph # (Auto) 1.4 10^3/uL (0.8-4.8) 07/05/22 01:22 [place] # (Auto) 0.5 10^3/uL (0.2-0.9) 07/05/22 01:22 Eos # (Auto) 0.0 10^3/uL (0.0-0.8) 07/05/22 01:22 Baso # (Auto) 0.0 10^3/uL (0.0-0.1) 07/05/22 01:22 Nucleated RBC % (auto) 0 % 07/05/22 01:22 Nucleated RBCs # 0.0 /100WBC 07/05/22 01:22 Sodium 135 mmol/L (136-145) L 07/05/22 01:22 Potassium 3.6 mmol/L (3.5-5.1) 07/05/22 01:22 Chloride 97 mmol/L (98-107) L 07/05/22 01:22 Carbon Dioxide 21 mmol/L (22-29) L 07/05/22 01:22 Anion Gap 20.6 (5-19) H 07/05/22 01:22 BUN 46 mg/dL (8-23) H 07/05/22 01:22 Creatinine 3.7 mg/dL (0.5-0.9) H 07/05/22 01:22 GFR Calculation Not Reportable 07/05/22 01:22 Glucose 98 mg/dL (65-115) 07/05/22 01:22 POC Glucose 109 mg/dL (70-110) 07/04/22 22:56 Calculated Osmolality 292 mOsm/kg (285-295) 07/05/22 01:22 Lactate 1.0 mmol/L (0.5-2.2) 07/05/22 01:22 Calcium 8.5 mg/dL (8.5-10.5) 07/05/22 01:22 Total Bilirubin 0.3 mg/dL (0.15-1.2) 07/05/22 01:22 AST 29 U/L (0-32) 07/05/22 01:22 ALT 19 U/L (0-33) 07/05/22 01:22 Alkaline Phosphatase 109 U/L (35-105) H 07/05/22 01:22 Total Protein 6.9 g/dL (6.6-8.7) 07/05/22 01:22 Albumin 3.2 g/dL (3.5-5.2) L 07/05/22 01:22 Globulin 3.7 g/dL (1.3-4.6) 07/05/22 01:22 Lipase 18 U/L (13-60) 07/05/22 01:22 Urine Color Yellow (Yellow) 07/05/22 00:47 Urine Appearance Hazy (CLEAR) A 07/05/22 00:47 Urine pH 6 (5-7) 07/05/22 00:47 Ur Specific [place] 1.015 (1.005-1.030) 07/05/22 00:47 Urine Protein 1+ (Negative) H 07/05/22 00:47 Urine Glucose (UA) Norm (Normal) 07/05/22 00:47 Urine Ketones 1+ (Negative) H 07/05/22 00:47 Urine Blood 3+ (Negative) H 07/05/22 00:47 Urine Nitrate Negative (Negative) 07/05/22 00:47 Urine Bilirubin Neg (Negative) 07/05/22 00:47 Urine Urobilinogen Norm mg/dL (Negative) 07/05/22 00:47 Ur Leukocyte Esterase Negative (Negative) 07/05/22 00:47 Urine RBC 25-40 /hpf (0-2) H 07/05/22 00:47 Urine WBC 40-55 /hpf (0-5) H 07/05/22 00:47 Ur Squamous Epith Cells 5-10 /hpf (0-5) H 07/05/22 00:47 Ur Renal Epithelial Cell 10-20 /hpf 07/05/22 00:47 Amorphous Sediment Not Reportable 07/05/22 00:47 Urine Bacteria 2+ /hpf (NONE) H 07/05/22 00:47 Coarse Granular Casts 5-10 /lpf H 07/05/22 00:47 SARS-CoV-2 Ag (Rapid) Negative (Negative) 07/05/22 00:57 Discharge Plan Discharge Patient Disposition: Home Clinical Impression: Urinary tract infection in elderly patient, Constipation, Retractile mesenteritis Condition: Stable Prescriptions: New cephalexin 500 mg capsule 500 mg PO Q6H 7 Days Qty: 28 0RF No Action aspirin [Adult Low Dose Aspirin] 81 mg tablet,delayed release (DR/EC) 81 mg PO BEDTIME Novolog Flexpen U-100 Insulin 100 unit/mL (3 mL) insulin pen 5 unit SUBCUT TID 30 Days Qty: 4.5 3RF Levemir FlexTouch U-100 Insuln 100 unit/mL (3 mL) insulin pen 80 unit SUBCUT BID fluconazole 150 mg tablet 150 mg PO DAILY Qty: 3 3RF ondansetron 4 mg tablet,disintegrating 4 mg PO Q8H 3 Days Qty: 9 0RF hydrocodone-acetaminophen 10-325 mg tablet 1 tab PO Q8H PRN (Reason: pain) 30 Days Qty: 90 0RF Rx Instructions: Do not fill until 05/22/22 (DME) blood-glucose meter Kit See Rx Instructions .ROUTE .MEDSUPPLY Qty: 1 0RF Rx Instructions: TEST 4 TIMES PER DAY (DME) Accu-Chek Merced Plus test strp Strip See Rx Instructions .ROUTE .MEDSUPPLY Qty: 100 0RF Rx Instructions: TEST QID (DME) pen needle, diabetic [TRUEplus Pen Needle] 32 gauge x 5/32 needle See Rx Instructions .ROUTE .COMPLEX Qty: 100 1RF Dose Instruction: USE DIRECTED Rx Instructions: USE DIRECTED Victoza 3-Moris 0.6 mg/0.1 mL (18 mg/3 mL) pen injector 1.2 mg SUBCUT DAILY chlorthalidone 25 mg tablet 25 mg PO DAILY Qty: 30 0RF ramipril 5 mg capsule 10 mg PO BEDTIME Qty: 60 0RF hydrocodone-acetaminophen 5-325 mg tablet 1 tab PO Q6H PRN (Reason: pain) Qty: 14 0RF Protonix 40 mg tablet,delayed release (DR/EC) 40 mg PO DAILY Qty: 60 0RF ondansetron 4 mg tablet,disintegrating 4 mg PO Q6H PRN (Reason: nausea and vomiting) Qty: 14 0RF multivitamin Tablet 1 tab PO QAM metoprolol tartrate 100 mg tablet 100 mg PO BID ropinirole 0.25 mg tablet 0.25 mg PO BEDTIME rosuvastatin 40 mg tablet 40 mg PO BEDTIME oxycodone-acetaminophen 5-325 mg tablet 1 tab PO Q8H PRN (Reason: pain) Qty: 10 0RF Discharge Orders: Discharge ED (Routine); Ordered 07/05/22 Ordered By: Gilmer Canales Referrals: Jane Strickland MD [Primary Care Provider] - Discharge Diet: Usual diet Discharge Activity: Resume usual activity Patient Instructions: Opioid Safety, Pain Management, Urinary Tract Infection in Women (DC), Constipation - Adult, Chronic Kidney Disease (ED) Activity Restrictions/Additional Instructions: Please follow-up with your primary care provider in a couple days to ensure that symptoms and labs are improving. Return to the ER with any concerns or worsening of symptoms Coding Level of Care Code ED Project Controls Specialist for Chg Fwd Exam Comprehensive
[2022-07-05 01:23] LABS: Add Urine Microscopic? YES; Bilirubin Urine Neg (Negative); Blood Urine 3+ (Negative); Glucose Urine UA Norm (Normal); Ketones Urine 1+ (Negative); Leukocyte Esterase Urine Negative (Negative); Nitrate Urine Negative (Negative); Protein Urine 1+ (Negative); Specific Gravity, Urine 1.015 (1.005-1.030); Urobilinogen Urine Norm (Negative); pH Urine 6 (5-7)
[2022-07-05 01:26] LABS: Urine Appearance Hazy (CLEAR); Urine Color Yellow (Yellow)
[2022-07-05 01:27] LABS: Bacteria Urine 2+ /hpf; RBC Urine 25-40 /hpf (0-2); WBC Urine 40-55 /hpf (0-5)
[2022-07-05 01:28] LABS: Add Urine Culture? Yes
[2022-07-05] MEDS: ondansetron 2 mg/ML SDV 2 mL 4 MG IVP (01:35)
[2022-07-05] MEDS: sodium chloride 0.9% 1,000 ML 999 ML IV (01:35)
[2022-07-05 01:39] LABS: Basophils % 0.2 %; Eosinophils % 0.2 %; Hematocrit 30.9 % (37.0-47.0); Hemoglobin 9.5 g/dL (11.5-15.3); Lymphocytes # 1.4 10^3/uL (0.8-4.8); Lymphocytes % 11.1 %; Mean Corpuscular HGB Conc 30.7 g/dL (30.0-36.0); Mean Corpuscular Hemoglobin 29.8 pg (28.0-34.0); Mean Corpuscular Volume 96.9 fl (81-99); Mean Platelet Volume 11.1 fL (7.4-10.4); Monocytes # 0.5 10^3/uL (0.2-0.9); Monocytes % 3.9 %; Neutrophils # 10.87 10^3/uL (1.8-7.7); Nucleated Red Blood Cells % 0 %; Platelet Count 250 10^3/cmm (130-400); Red Blood Count 3.19 10^6/uL (4.1-5.3); White Blood Count 12.9 10^3/uL (4.0-10.0)
[2022-07-05] MEDS: cefTRIAXone 1,000 MG in sodium chloride 0.9% (plus) 50 ML 100 MG IV (01:41)
[2022-07-05] MEDS: acetaminophen 325 mg Tablet 650 MG PO (01:41)
[2022-07-05 02:01] LABS: Alanine Aminotransferase 19 U/L (0-33); Albumin Level 3.2 g/dL (3.5-5.2); Alkaline Phosphatase 109 U/L (35-105); Anion Gap 20.6 (5-19); Aspartate Amino Transferase 29 U/L (0-32); Blood Urea Nitrogen 46 mg/dL (8-23); Calcium 8.5 mg/dL (8.5-10.5); Carbon Dioxide 21 mmol/L (22-29); Chloride 97 mmol/L (98-107); Globulin 3.7 g/dL (1.3-4.6); Glucose 98 mg/dL (65-115); Lipase 18 U/L (13-60); Osmolality Calculated 292 mOsm/kg (285-295); Potassium 3.6 mmol/L (3.5-5.1); Sodium 135 mmol/L (136-145); Total Bilirubin 0.3 mg/dL (0.15-1.2); Total Protein 6.9 g/dL (6.6-8.7)
[2022-07-05 02:05] LABS: SARS Covid-2 Antigen Negative (Negative)
[2022-07-05] MEDS: sodium chloride 0.9% 1,000 ML 100 ML IV (04:11)
[2022-07-05 04:32] VITALS: BP 115/69; PULSE 84; RESP 14; O2SAT 96
== END 2022-07-05 04:33 | disposition home or self-care (01) ==
PROVIDERS: Emergency Provider Student in an Organized Health Care Education/Training Program; PCP Family Medicine
DX: N39.0 Urinary tract infection, site not specified (principal); K59.00 Constipation, unspecified; K65.4 Sclerosing mesenteritis; Z79.82 Long term (current) use of aspirin; Z79.4 Long term (current) use of insulin; Z20.822 Contact with and (suspected) exposure to COVID-19; E11.9 Type 2 diabetes mellitus without complications; E78.5 Hyperlipidemia, unspecified; I10 Essential (primary) hypertension
CPT/HCPCS: 36416; 74176; 80053; 81001; 82962; 83605; 83690; 85025; 87086; 87426; 96361; 96365; 96375; 99285; J0696; J2405; J7030

== ENCOUNTER 2022-07-06 19:29 | Emergency (ER) | payer MEDICARE, OTHER, SELFPAY ==
[2022-07-06 19:36] VITALS: BP 128/74; PULSE 78; RESP 16; TEMP 36.9; O2SAT 96; BMI 25.9
--- NOTE | 2022-07-06 20:12 | W.ED.EAR ---
HPI - Ear Problem General: Chief complaint: Ear Stated complaint: object in right ear Time Seen by Provider: 07/06/22 19:37 History of Present Illness: A 76-year-old female comes in today for complaints of a foreign body in the right ear canal. states he seen something in there and thinks it might be a hearing aid battery. Patient denies any pain or discomfort. Patient appears well. Associated symptoms: Denies ear or mastoid pain or fever(s) Review of Systems Const: Denies: fever(s) ENMT: Reports: other (Possible foreign body in right ear canal); Denies: ear or mastoid pain Card: Denies: chest pain Resp: Denies: dyspnea PFSH ED PFSH: Medical History Abdominal pain Acidosis, lactic Anxiety and depression ASHD (arteriosclerotic heart disease) Cataracts, bilateral Chest pain CKD (chronic kidney disease) Diabetes Diabetic ketoacidosis Diabetic neuropathy Diabetic peripheral neuropathy Fibromyalgia Gastroparesis Gram-positive bacteremia Hyperlipidemia Hypertension Insomnia Intractable abdominal pain Intractable vomiting with nausea Left renal stone Leukocytosis Migraine Nausea and vomiting Odynophagia Pyelonephritis Pyuria Ureterolithiasis Surgical History H/O angioplasty H/O carpal tunnel repair H/O: hysterectomy History of cholecystectomy S/P ureteral stent placement Family History Mother , at age 65 Heart attack Father , at age 63 Heart attack Other Diabetes Hypertension Social History Smoking and tobacco status: never smoked Second hand smoke exposure: No Alcohol intake: never Adopted: No Caregiver/support person: Yes (spouse) Lives independently: Yes Household members: spouse Marital status: service: No Current occupational status: retired History of recent travel: No Current gender identity: Female Special vandana needs: No Agree to transfusion: Yes Physical Exam Const: COMMON NORMALS: alert HENMT: COMMON NORMALS: TM's normal bilaterally EXTERNAL AUDITORY CANAL: Abnormal EAC present EAC laterality: right (Louann stud in ear canal) TYMPANIC MEMBRANE: TM's normal bilaterally THROAT: posterior oropharynx normal Neck/C-Spine: COMMON NORMALS: full ROM Resp: COMMON NORMALS: normal respiratory effort and clear to auscultation bilaterally AUSCULTATION: clear to auscultation bilaterally Cardio: COMMON NORMALS: regular rate RATE: regular rate Extremity: COMMON NORMALS: full ROM Neuro: SENSORIUM/ORIENTATION: Yes alert Skin: COMMON NORMALS: no rashes or lesions noted GENERAL SKIN EXAM: no rashes or lesions noted Procedures FB Removal Ear Location: ear canal (R) Foreign Body Suspected: other (earring) TM intact pre-procedure: unable to visualize Foreign Body Removed: yes Foreign Body Removal Technique: instrumentation Tympanic Membrane Intact Post Procedure: Yes Patient Tolerated Procedure: well Complications: none Course Vital Signs: Vital signs: Vital Signs Temperature 98.5 F 07/06/22 19:36 Pulse Rate 78 07/06/22 19:36 Respiratory Rate 16 07/06/22 19:36 Blood Pressure 128/74 07/06/22 19:36 Pulse Oximetry 96 07/06/22 19:36 Oxygen Delivery Me thod 07/06/22 19:36 MDM - Ear Medical Decision Making Patient came in today for a foreign body in her right ear canal. On exam we note a foreign body in the ear canal that appears to be a louann like stud earring. Differential diagnosis includes perforation of the eardrum, foreign body in ear canal, otitis externa. Foreign body was removed and tympanic membrane was intact. Patient tolerated well. Recommend routine care and follow-up with primary care. Discharge Plan Discharge Patient Disposition: Home Clinical Impression: Foreign body in ear Qualifiers: Encounter type: initial encounter Laterality: right Qualified Code(s): T16.1XXA - Foreign body in right ear, initial encounter Condition: Stable Prescriptions: No Action aspirin [Adult Low Dose Aspirin] 81 mg tablet,delayed release (DR/EC) 81 mg PO BEDTIME Novolog Flexpen U-100 Insulin 100 unit/mL (3 mL) insulin pen 5 unit SUBCUT TID 30 Days Qty: 4.5 3RF Levemir FlexTouch U-100 Insuln 100 unit/mL (3 mL) insulin pen 80 unit SUBCUT BID fluconazole 150 mg tablet 150 mg PO DAILY Qty: 3 3RF ondansetron 4 mg tablet,disintegrating 4 mg PO Q8H 3 Days Qty: 9 0RF hydrocodone-acetaminophen 10-325 mg tablet 1 tab PO Q8H PRN (Reason: pain) 30 Days Qty: 90 0RF Rx Instructions: Do not fill until 05/22/22 (DME) blood-glucose meter Kit See Rx Instructions .ROUTE .MEDSUPPLY Qty: 1 0RF Rx Instructions: TEST 4 TIMES PER DAY (DME) Accu-Chek Merced Plus test strp Strip See Rx Instructions .ROUTE .MEDSUPPLY Qty: 100 0RF Rx Instructions: TEST QID (DME) pen needle, diabetic [TRUEplus Pen Needle] 32 gauge x 5/32 needle See Rx Instructions .ROUTE .COMPLEX Qty: 100 1RF Dose Instruction: USE DIRECTED Rx Instructions: USE DIRECTED Victoza 3-Moris 0.6 mg/0.1 mL (18 mg/3 mL) pen injector 1.2 mg SUBCUT DAILY chlorthalidone 25 mg tablet 25 mg PO DAILY Qty: 30 0RF ramipril 5 mg capsule 10 mg PO BEDTIME Qty: 60 0RF hydrocodone-acetaminophen 5-325 mg tablet 1 tab PO Q6H PRN (Reason: pain) Qty: 14 0RF Protonix 40 mg tablet,delayed release (DR/EC) 40 mg PO DAILY Qty: 60 0RF ondansetron 4 mg tablet,disintegrating 4 mg PO Q6H PRN (Reason: nausea and vomiting) Qty: 14 0RF multivitamin Tablet 1 tab PO QAM metoprolol tartrate 100 mg tablet 100 mg PO BID ropinirole 0.25 mg tablet 0.25 mg PO BEDTIME rosuvastatin 40 mg tablet 40 mg PO BEDTIME oxycodone-acetaminophen 5-325 mg tablet 1 tab PO Q8H PRN (Reason: pain) Qty: 10 0RF cephalexin 500 mg capsule 500 mg PO Q6H 7 Days Qty: 28 0RF Discharge Orders: Discharge ED (Routine); Ordered 07/06/22 Ordered By: Gold Alicea Referrals: Jane Strickland MD [Primary Care Provider] - Discharge Diet: Usual diet Discharge Activity: Increase activity as tolerated Activity Restrictions/Additional Instructions: Continue with routine care. Follow-up with primary care as needed. Return to ED for new concerns. Coding Level of Care Code ED Shellac Polisher for Melissa King
== END 2022-07-06 20:23 | disposition home or self-care (01) ==
PROVIDERS: Emergency Provider Nurse Practitioner Family; PCP Family Medicine
DX: T16.1XXA Foreign body in right ear, initial encounter (principal); X58.XXXA Exposure to other specified factors, initial encounter; Z79.82 Long term (current) use of aspirin; Z79.4 Long term (current) use of insulin; E11.9 Type 2 diabetes mellitus without complications; E78.5 Hyperlipidemia, unspecified; I10 Essential (primary) hypertension
CPT/HCPCS: 99282

== ENCOUNTER → 2022-07-24 08:21 | Outpatient (BNVA) | payer MEDICARE, OTHER, SELFPAY | PROVIDERS: PCP Family Medicine; Visit Provider Specialist | DX: E11.40 Type 2 diabetes mellitus with diabetic neuropathy, unspecified (principal); Z79.4 Long term (current) use of insulin; Z79.891 Long term (current) use of opiate analgesic | CPT/HCPCS: 81000; 90662; 99214 ==

== ENCOUNTER 2022-09-06 17:30 | Inpatient (IN) | payer MEDICARE, OTHER, SELFPAY ==
[2022-09-06] VITALS (11 sets, daily range): BP systolic 94–180; BP diastolic 58–104; PULSE 79–118; RESP 16–24; TEMP 36.6–37.3; O2SAT 96–100; BMI 25.9
--- NOTE | 2022-09-06 17:41 | XRR_ITS ---
PROCEDURE INFORMATION: Exam: XR Chest Exam date and time: 09/06/2022 6:58 PM Age: 76 years old Clinical indication: Cough and dyspnea; Additional info: Dyspnea/cough TECHNIQUE: Imaging protocol: Radiologic exam of the chest. Views: 1 view. COMPARISON: CR (CHEST, ) 06/06/2022 6:05 PM FINDINGS: Lungs: Calcified granulomas noted in the right upper lobe and left perihilar regions. No consolidation. Pleural spaces: Unremarkable. No pleural effusion. No pneumothorax. Heart/Mediastinum: Unremarkable. No cardiomegaly. Bones/joints: Unremarkable. XR/XR chest 1V portable [id number] IMPRESSION: No acute findings.
--- NOTE | 2022-09-06 17:53 | ED_ITS ---
HPI - Abdominal Pain General: Chief Complaint: Abdominal Pain Stated Complaint: ABD pain Time Seen by Provider: 09/06/22 17:38 Source: patient History of Present Illness: 76-year-old female who presents to the emergency room with complaints of epigastric discomfort nausea vomiting began this morning after she had eaten a cinnamon roll around 10 AM she intermittently had vomiting abdominal discomfort all throughout the day. Prior to arrival her blood sugar is 212. No chest pain no shortness of breath no cough. Patient is diabetic no other family members have been sick at home recently. MD elicited complaint: abdominal pain Onset (ago): hour(s) Pain Consistency: constant Location: Epigastric Severity: moderate Quality: cramping Radiation: none Migration to: no migration Exacerbating factors: nothing Relieving factors: nothing Associated Symptoms: Reports GI cramping, nausea, poor appetite and vomiting; Denies anorexia, belching, bloating, change in bowel habits, change in stool character, chills, coffee ground emesis, constipation, diarrhea, dyspepsia, dysuria, excessive flatus, fever(s), heartburn, hematochezia, hematuria, hematem esis, fecal incontinence, loose stools and melena Review of Systems Const: Denies: fever(s) or chills ENMT: Denies: throat pain, ear or mastoid pain, nasal discharge or nasal congestion Card: Denies: chest pain, palpitations, edema, dyspnea on exertion or orthopnea Resp: Denies: dyspnea, productive cough or non-productive cough GI: Reports: nausea, vomiting and GI cramping; Denies: hematemesis, coffee ground emesis, heartburn, diarrhea, constipation, bloating, belching, excessive flatus, fecal incontinence, change in bowel habits, change in stool character, hematochezia or melena : Denies: dysuria or hematuria Skin/Breast: Denies: rash or pruritus PFSH ED PFSH: Medical History Abdominal pain Acidosis, lactic Anxiety and depression ASHD (arteriosclerotic heart disease) Cataracts, bilateral Chest pain CKD (chronic kidney disease) Diabetes Diabetic ketoacidosis Diabetic neuropathy Diabetic peripheral neuropathy Fibromyalgia Gastroparesis Gram-positive bacteremia Hyperlipidemia Hypertension Insomnia Intractable abdominal pain Intractable vomiting with nausea Left renal stone Leukocytosis Migraine Nausea and vomiting Odynophagia Pyelonephritis Pyuria Ureterolithiasis Surgical History H/O angioplasty H/O carpal tunnel repair H/O: hysterectomy History of cholecystectomy S/P ureteral stent placement Family History Mother , at age 65 Heart attack Father , at age 63 Heart attack Other Diabetes Hypertension Social History Smoking and tobacco status: current every day smoker Second hand smoke exposure: No Alcohol intake: never Adopted: No Caregiver/support person: Yes (spouse) Lives independently: Yes Household members: spouse Marital status: service: No Current occupational status: retired History of recent travel: No Current gender identity: Female Special vandana needs: No Agree to transfusion: Yes Physical Exam Const: GENERAL APPEARANCE: cooperative and comfortable ORIENTATION/CONSCIOUSNESS: Yes awake, Yes oriented to person, Yes oriented to place and Yes oriented to time HENMT: COMMON NORMALS: normocephalic, atraumatic and hearing grossly normal bilaterally HEAD & SCALP: normocephalic and atraumatic Resp: COMMON NORMALS: normal respiratory effort, No retractions, No use of accessory muscles and clear to auscultation bilaterally AUSCULTATION: clear to auscultation bilaterally Cardio: COMMON NORMALS: regular rate, regular rhythm and No murmurs present (Cardio) RATE: regular rate RHYTHM: regular rhythm GI: COMMON NORMALS: Soft to palpation and No hepatosplenomegaly present AU SCULTATION: Yes normoactive bowel sounds PALPATION: Yes Soft to palpation, No Tenderness to palpation present (GI), No Guarding due to palpation present (GI) and Yes No hepatosplenomegaly present Extremity: COMMON NORMALS: normal to inspection, capillary refill normal, no clubbing, cyanosis or edema, no calf tenderness and no pedal edema Neuro: SENSORIUM/ORIENTATION: Yes oriented to person, Yes oriented to place and Yes oriented to time Skin: COMMON NORMALS: no rashes or lesions noted GENERAL SKIN EXAM: no rashes or lesions noted Course Vital Signs: Vital signs: Vital Signs Temperature 97.8 F 09/06/22 17:36 Pulse Rate 110 H 11/24/22 21:53 Respiratory Rate 16 09/06/22 21:53 Blood Pressure 112/78 09/06/22 21:53 Pulse Oximetry 100 09/06/22 21:53 Oxygen Delivery Me thod 09/06/22 21:53 MDM - Abdominal Pain Medical Decision Making Labs imaging and EKG reviewed. Patient left bundle branch block previously still present now. Initially patient complained only of abdominal discomfort when I went back to talk to her about her results she said she now is having some chest discomfort. She been markedly hypertensive we gave her labetalol and hydralazine her blood pressure is decreased. Now she has had any additional chest pain patient has had aspirin Lovenox and Nitro-Bid topical ordered. Started on some normal saline as well as given Phenergan for nausea vomiting discussed Dr. herrera for hospitalist will admit orders written Orders are written anticipating transferring patient to [facility] her chest pain is progressively worsening we will contact cardiology. Repeat EKG was done does not meet criteria for a patient with a bundle branch block. Is switching her from Nitropaste to a nitro drip Dr. Ulrich is contacting Dr. Lee. Medical Records I reviewed the patient's medical records. Lab Data I reviewed the patient's lab results. 09/06/22 18:06 09/06/22 18:06 Labs/Radiology: Radiology Impressions Chest X-Ray 09/06/22 17:41 IMPRESSION: No acute findings. Laboratory Results WBC 14.1 10^3/uL (4.0-10.0) H 09/06/22 18:06 RBC 4.13 10^6/uL (4.1-5.3) 09/06/22 18:06 Hgb 12.2 g/dL (11.5-15.3) 09/06/22 18:06 Hct 37.9 % (37.0-47.0) 09/06/22 18:06 MCV 91.8 fl (81-99) 09/06/22 18:06 MCH 29.5 pg (28.0-34.0) 09/06/22 18:06 MCHC 32.2 g/dL (30.0-36.0) 09/06/22 18:06 RDW 14.0 % (12.1-15.1) 09/06/22 18:06 Plt Count 338 10^3/cmm (130-400) 09/06/22 18:06 MPV 11.5 fL (7.4-10.4) H 09/06/22 18:06 Neut % (Auto) 76.2 % 09/06/22 18:06 Lymph % (Auto) 21.2 % 09/06/22 18:06 [place] % (Auto) 1.8 % 09/06/22 18:06 Eos % (Auto) 0.1 % 09/06/22 18:06 Baso % (Auto) 0.2 % 09/06/22 18:06 Neut # (Auto) 10.71 10^3/uL (1.8-7.7) H 09/06/22 18:06 Lymph # (Auto) 3.0 10^3/uL (0.8-4.8) 09/06/22 18:06 [place] # (Auto) 0.3 10^3/uL (0.2-0.9) 09/06/22 18:06 Eos # (Auto) 0.0 10^3/uL (0.0-0.8) 09/06/22 18:06 Baso # (Auto) 0.0 10^3/uL (0.0-0.1) 09/06/22 18:06 Nucleated RBC % (auto) 0 % 09/06/22 18:06 Nucleated RBCs # 0.0 /100WBC 09/06/22 18:06 Specimen Type Arterial 09/06/22 20:16 Sample Site Radial, left 09/06/22 20:16 ABG pH 7.52 (7.35-7.45) H 09/06/22 20:16 ABG pCO2 28.2 mmHg (35-45) L 09/06/22 20:16 ABG pO2 112.0 mmHg (80.0-100.0) H 09/06/22 20:16 ABG HCO3 23.1 mmol/L (22-26) 09/06/22 20:16 ABG O2 Saturation 97.8 09/06/22 20:16 ABG Base Excess 1.1 mmol/L (-2.0-2.0) 09/06/22 20:16 Antonio Test Pos 09/06/22 20:16 A-a O2 Gradient 0.2 mmHg (5-10) L 09/06/22 20:16 Hematocrit 37.0 % (37-47) 09/06/22 20:16 Hgb O2 Saturation 97.4 % (95-100) 09/06/22 20:16 Carboxyhemoglobin < 1.0 %THgb (0.4-20.1) 09/06/22 20:16 Methemoglobin 0.3 % (0.4-1.5) L 09/06/22 20:16 Total Hemoglobin 12.1 g/dL (12-16) 09/06/22 20:16 Sodium 140.0 mmol/L (131-143) 09/06/22 20:16 Potassium 3.2 mmol/L (3.5-5.0) L 09/06/22 20:16 Glucose 281.0 mg/dL (70-115) H 09/06/22 20:16 Ionized Calcium 1.1 mmol/L (1.1-1.4) 09/06/22 20:16 O2 Delivery Device Room air 09/06/22 20:16 FiO2 21.0 % 09/06/22 20:16 Lead Software Engineer ID [email or web address] 09/06/22 20:16 Sodium 138 mmol/L (136-145) 09/06/22 18:06 Potassium 3.9 mmol/L (3.5-5.1) 09/06/22 18:06 Chloride 97 mmol/L (98-107) L 09/06/22 18:06 Carbon Dioxide 24 mmol/L (22-29) 09/06/22 18:06 Anion Gap 20.9 (5-19) H 09/06/22 18:06 BUN 29 mg/dL (8-23) H 09/06/22 18:06 Creatinine 1.1 mg/dL (0.5-0.9) H 09/06/22 18:06 GFR Calculation Not Reportable 09/06/22 18:06 Glucose 207 mg/dL (65-115) H 09/06/22 18:06 POC Glucose 218 mg/dL (70-110) H 09/06/22 18:02 Calculated Osmolality 298 mOsm/kg (285-295) H 09/06/22 18:06 Calcium 10.1 mg/dL (8.5-10.5) 09/06/22 18:06 Total Bilirubin 0.4 mg/dL (0.15-1.2) 09/06/22 18:06 AST 19 U/L (0-32) 09/06/22 18:06 ALT 15 U/L (0-33) 09/06/22 18:06 Alkaline Phosphatase 120 U/L (35-105) H 09/06/22 18:06 Troponin T Baseline 26 ng/L (0-10) H 09/06/22 18:06 Troponin T 120 Minute 51.60 ng/L (0-10) H 09/06/22 21:05 Delta Troponin T 25.60 ABS# (0-10) H* 09/06/22 21:05 Total Protein 7.6 g/dL (6.6-8.7) 09/06/22 18:06 Albumin 4.5 g/dL (3.5-5.2) 09/06/22 18:06 Globulin 3.1 g/dL (1.3-4.6) 09/06/22 18:06 Urine Color Yellow (Yellow) 09/06/22 18:45 Urine Appearance Clear (CLEAR) 09/06/22 18:45 Urine pH 8 (5-7) H 09/06/22 18:45 Ur Specific [place] 1.010 (1.005-1.030) 09/06/22 18:45 Urine Protein Trace (Negative) 09/06/22 18:45 Urine Glucose (UA) 2+ (Normal) H 09/06/22 18:45 Urine Ketones 1+ (Negative) H 09/06/22 18:45 Urine Blood Neg (Negative) 09/06/22 18:45 Urine Nitrate Negative (Negative) 09/06/22 18:45 Urine Bilirubin Neg (Negative) 09/06/22 18:45 Prot Sulfosalicylic Acd Negative (Negative) 09/06/22 18:45 Urine Urobilinogen Norm mg/dL (Negative) 09/06/22 18:45 Ur Leukocyte Esterase Negative (Negative) 09/06/22 18:45 Urine RBC 0-4 /hpf (0-2) H 09/06/22 18:45 Urine WBC 0-4 /hpf (0-5) H 09/06/22 18:45 Ur Squamous Epith Cells 0-4 /hpf (0-5) H 09/06/22 18:45 Amorphous Sediment Not Reportable 09/06/22 18:45 Urine Bacteria Trace /hpf (NONE) 09/06/22 18:45 Serum Ketones Negative (Negative) 09/06/22 18:06 Influenza Type A Ag Negative (Negative) 09/06/22 18:54 Influenza Type B Ag Negative (Negative) 09/06/22 18:54 Discharge Plan Discharge Patient Disposition: Admitted As Inpatient Clinical Impression: NSTEMI (non-ST elevated myocardial infarction), Diabetes, Hypertension, Nausea and vomiting Condition: Stable Prescriptions: No Action aspirin [Adult Low Dose Aspirin] 81 mg tablet,delayed release (DR/EC) 81 mg PO BEDTIME Novolog Flexpen U-100 Insulin 100 unit/mL (3 mL) insulin pen 5 unit SUBCUT TID 30 Days Qty: 4.5 3RF ondansetron 4 mg tablet,disintegrating 4 mg PO Q8H 3 Days Qty: 9 0RF ondansetron 8 mg tablet,disintegrating 8 mg PO Q8H PRN (Reason: nausea and vomiting) 5 Days Qty: 15 0RF (DME) blood-glucose meter Kit See Rx Instructions .ROUTE .MEDSUPPLY Qty: 1 0RF Rx Instructions: TEST 4 TIMES PER DAY (DME) Accu-Chek Merced Plus test strp Strip See Rx Instructions .ROUTE .MEDSUPPLY Qty: 100 0RF Rx Instructions: TEST QID hydrocodone-acetaminophen 10-325 mg tablet 1 tab PO Q8H PRN (Reason: pain) 30 Days Qty: 90 0RF Rx Instructions: Do not fill until 08/23/2022 hydrocodone-acetaminophen 5-325 mg tablet 1 tab PO BID PRN (Reason: pain) 60 Days Qty: 60 0RF ondansetron 4 mg tablet,disintegrating See Rx Instructions .ROUTE .COMPLEX Qty: 14 0RF Dose Instruction: DISSOLVE ONE TABLET BY MOUTH EVERY 6 HOURS as needed for NAUSEA/VOMITING Rx Instructions: DISSOLVE ONE TABLET BY MOUTH EVERY 6 HOURS as needed for NAUSEA/VOMITING Levemir FlexTouch U-100 Insuln 100 unit/mL (3 mL) insulin pen See Rx Instructions .ROUTE .COMPLEX Qty: 15 2RF Dose Instruction: INJECT 80 UNITS SUBCUTANEOUSLY TWICE DAILY Rx Instructions: INJECT 80 UNITS SUBCUTANEOUSLY TWICE DAILY (DME) pen needle, diabetic [TechLITE Pen Needle] 32 gauge x 5/32 needle See Rx Instructions .ROUTE .COMPLEX Qty: 100 1RF Dose Instruction: USE DIRECTED with insulin Rx Instructions: USE DIRECTED with insulin Victoza 3-Moris 0.6 mg/0.1 mL (18 mg/3 mL) pen injector 1.2 mg SUBCUT DAILY ramipril 5 mg capsule 10 mg PO BEDTIME Qty: 60 0RF Protonix 40 mg tablet,delayed release (DR/EC) 40 mg PO DAILY Qty: 60 0RF multivitamin Tablet 1 tab PO QAM metoprolol tartrate 100 mg tablet 100 mg PO BID ropinirole 0.25 mg tablet 0.25 mg PO BEDTIME rosuvastatin 40 mg tablet 40 mg PO BEDTIME oxycodone-acetaminophen 5-325 mg tablet 1 tab PO Q8H PRN (Reason: pain) Qty: 10 0RF Referrals: Jane Strickland MD [Primary Care Provider] - Patient Instructions: Opioid Safety, Pain Management Coding Level of Care Code 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
[2022-09-06] MEDS: sodium chloride 0.9% 1,000 ML 999 ML IV (18:01)
[2022-09-06] MEDS: ondansetron 2 mg/ML SDV 2 mL 4 MG IVP ×2 (18:01→21:53)
--- NOTE | 2022-09-06 18:05 | ECG_ITS ---
[facility] Test Date: 2022-09-06 Pat Name: Evelyn Farley Department: Room: Gender: Female Child Welfare Social Worker: : 1945 Requested By: Jeremias Crystal Order Number: [id number] Beverley MD: Sandip Sweet M.D. Measurements Intervals [place] Rate: 86 P: 68 UT: 173 QRS: 59 QRSD: 140 T: 101 QT: 439 QTc: 527 Interpretive Statements SINUS RHYTHM WITH FREQUENT SUPRAVENTRICULAR PREMATURE COMPLEXES LEFT BUNDLE BRANCH BLOCK [120+ ms QRS DURATION, 80+ ms Q/S IN V1/V2, 85+ ms R IN I/aVL/V5/V6] Compared to ECG 07/02/2022 07:30:40 No significant changes Electronically Signed On 09-07-2022 11:10:19 IT LEAD by Sandip Sweet M.D. [id number]
--- NOTE | 2022-09-06 18:09 | PC.NURSE ---
PT PLACED ON CONTINUOUS NIBP, SPO2, AND CM
[2022-09-06 18:11] LABS: Glucose Point of Care 218 mg/dL (70-110)
[2022-09-06 18:16] LABS: Basophils % 0.2 %; Eosinophils % 0.1 %; Hematocrit 37.9 % (37.0-47.0); Hemoglobin 12.2 g/dL (11.5-15.3); Lymphocytes % 21.2 %; Mean Corpuscular HGB Conc 32.2 g/dL (30.0-36.0); Mean Corpuscular Hemoglobin 29.5 pg (28.0-34.0); Mean Corpuscular Volume 91.8 fl (81-99); Mean Platelet Volume 11.5 fL (7.4-10.4); Monocytes # 0.3 10^3/uL (0.2-0.9); Monocytes % 1.8 %; Neutrophils # 10.71 10^3/uL (1.8-7.7); Neutrophils % 76.2 %; Nucleated Red Blood Cells % 0 %; Platelet Count 338 10^3/cmm (130-400); Red Blood Count 4.13 10^6/uL (4.1-5.3); White Blood Count 14.1 10^3/uL (4.0-10.0)
[2022-09-06 18:21] LABS: Ketone (Acetest) Serum Negative (Negative)
[2022-09-06 18:33] LABS: Alanine Aminotransferase 15 U/L (0-33); Albumin Level 4.5 g/dL (3.5-5.2); Alkaline Phosphatase 120 U/L (35-105); Blood Urea Nitrogen 29 mg/dL (8-23); Calcium 10.1 mg/dL (8.5-10.5); Carbon Dioxide 24 mmol/L (22-29); Chloride 97 mmol/L (98-107); Globulin 3.1 g/dL (1.3-4.6); Glucose 207 mg/dL (65-115); Osmolality Calculated 298 mOsm/kg (285-295); Sodium 138 mmol/L (136-145); Total Bilirubin 0.4 mg/dL (0.15-1.2); Total Protein 7.6 g/dL (6.6-8.7)
[2022-09-06 18:34] LABS: Anion Gap 20.9 (5-19); Aspartate Amino Transferase 19 U/L (0-32); Potassium 3.9 mmol/L (3.5-5.1)
[2022-09-06 18:44] LABS: Troponin(5th) Baseline 26 ng/L (0-10)
[2022-09-06 19:00] LABS: Add Urine Culture? No; Add Urine Microscopic? YES; Bacteria Urine TRACE /hpf; Bilirubin Urine Neg (Negative); Blood Urine Neg (Negative); Glucose Urine UA 2+ (Normal); Ketones Urine 1+ (Negative); Leukocyte Esterase Urine Negative (Negative); Nitrate Urine Negative (Negative); Protein Urine Trace (Negative); RBC Urine 0-4 /hpf (0-2); Squamous Epithelial Cell Urine 0-4 /hpf (0-5); Sulfosalicylic Acid Urine Negative (Negative); Urine Appearance Clear (CLEAR); Urine Color Yellow (Yellow); Urobilinogen Urine Norm (Negative); WBC Urine 0-4 /hpf (0-5); pH Urine 8 (5-7)
[2022-09-06 19:40] LABS: Influenza A by IFA Negative (Negative); Influenza B by IFA Negative (Negative)
--- NOTE | 2022-09-06 19:41 | ECG_ITS ---
[facility] Test Date: 2022-09-06 Pat Name: Evelyn Farley Department: Room: Gender: Female Wheel Lacer And Truer: : 1945 Requested By: Jeremias Crystal Order Number: [id number] Beverley MD: Sandip Sweet M.D. Measurements Intervals [place] Rate: 89 P: 48 MO: 181 QRS: 21 QRSD: 140 T: 120 QT: 410 QTc: 501 Interpretive Statements SINUS RHYTHM WITH FREQUENT SUPRAVENTRICULAR PREMATURE COMPLEXES LEFT BUNDLE BRANCH BLOCK [120+ ms QRS DURATION, 80+ ms Q/S IN V1/V2, 85+ ms R IN I/aVL/V5/V6] Compared to ECG 09/06/2022 18:05:38 No significant changes Electronically Signed On 09-07-2022 11:11:51 BRUSH CLEANER by Sandip Sweet M.D. [id number]
[2022-09-06 20:27] LABS: ABG PCO2 28.2 mmHg (35-45); ABG PH Result 7.52 (7.35-7.45); Alveolar-Arterial Oxygen Gradi 0.2 mmHg (5-10); Base Excess ABG 1.1 mmol/L (-2.0-2.0); Blood Gas Allen Test Pos; Blood Gas Sample Site Radial, left; Blood Gas Sample Type Arterial; Carboxyhemoglobin < 1.0 %THgb (0.4-20.1); HCO3 ABG 23.1 mmol/L (22-26); HGB O2 Sat 97.4 % (95-100); Ionized Calcium Level - ABG 1.1 mmol/L (1.1-1.4); Methemoglobin 0.3 % (0.4-1.5); Oxygen Device ROOM AIR; Oxygen Saturation ABG 97.8; Potassium Level - ABG 3.2 mmol/L (3.5-5.0); Total Hemoglobin 12.1 g/dL (12-16)
[2022-09-06] MEDS: morphine 4 mg/mL SDV 1 mL 2 MG IVP ×3 (20:48→22:57)
[2022-09-06] MEDS: labetalol 5 mg/mL SDV 20mL 10 MG IVP (21:53)
[2022-09-06] MEDS: hyDRALAzine 20 mg/mL INJ 1 mL IVP (21:53)
--- NOTE | 2022-09-06 22:01 | PM.HP ---
Providers/Chief Complaint Primary Care Provider: Jane Strickland MD Chief Complaint: ABD pain History of Present Illness Evelyn Farley is a 76 year old female with known past medical history of diabetic gastroparesis, Briceño's esophagus, diabetes CKD, atherosclerotic heart disease, hyperlipidemia, hypertension, recent left renal stone, pyelonephritis, UTI presented to the hospital today with epigastric pain. She has had several ER visits for abdominal pain. She has known history of Briceño's esophagus and diabetic gastroparesis and peripheral neuropathy. She follows with Dr. Bundy outpatient and most recently saw her in July 2022. Her hydrocodone was cut down to 5 twice a day. Patient has also battled constipation and along with trouble swallowing. She is on milk of magnesia and other laxatives at home. She also has an office visit to her primary doctor with similar complaints of nausea vomiting. She states she has history of coronary artery disease status post 3 stents. This was years ago. Has not had any recent stress test. She ate a cinnamon roll this morning and that is when abdominal pain started. Did not have any chest pain prior to that. However after she came to the ER she developed chest pain that was progressively worsening however responding to morphine. Nothing makes it worse. Morphine did improve it somewhat. It is located substernal region and is achy in nature and not radiating anywhere. Patient was given morphine 2 mg IV push x3 and Nitropaste was applied. Patient stated that after morphine she felt a little better. Nitro drip was also ordered but has not been given. Stat troponin has been ordered. EKGs has been discussed with on-call lithograph operator. She does have an old left bundle branch block which is unchanged. Patient has been ordered a GI cocktail as well. Patient's family is present at bedside. Patient was not sure if chest pain is reproducible to palpation or not. She answers yes and then no and then yes again. ED course: BP on arrival elevated. Pt given IV labetalol and IV hydralazine, therapeutic lovenox, aspirin and nitro paste. Delta trop 25. 6 hour trop pending. Medications/Allergies Home Medications Medication Instructions Recorded Confirmed Last Taken Type aspirin 81 mg tablet,delayed 81 mg PO BEDTIME 10/28/19 07/28/22 06/05/22 History release (Adult Low Dose Aspirin) blood-glucose meter #1 ea 11/19/19 07/28/22 Unknown Rx insulin aspart U-100 100 unit/mL 5 unit (0.05 mL) SUBCUT TID 30 09/26/21 07/28/22 06/06/22 Rx (3 mL) subcutaneous pen (Novo days #4.5 mL Flexpen U-100 Insulin aspart) blood sugar diagnostic (Accu-Chek #100 ea 05/09/22 07/28/22 Unknown Rx Merced Plus test strips) metoprolol tartrate 100 mg tablet 100 mg PO BID 05/23/22 07/28/22 06/06/22 History multivitamin 1 tab PO QAM 05/23/22 07/28/22 06/06/22 History ropinirole 0.25 mg tablet 0.25 mg PO BEDTIME 05/23/22 07/28/22 06/05/22 History rosuvastatin 40 mg tablet 40 mg PO BEDTIME 05/23/22 07/28/22 06/05/22 History oxycodone-acetaminophen 5 mg-325 1 tab PO Q8H PRN pain #10 tabs 05/25/22 07/28/22 Unknown Rx mg tablet liraglutide 0.6 mg/0.1 mL (18 mg/3 1.2 mg SUBCUT DAILY 06/06/22 07/28/22 Unknown History mL) subcutaneous pen injector (valuescopetoza 3-Moris) ramipril 5 mg capsule 10 mg PO BEDTIME #60 caps 06/10/22 07/28/22 06/05/22 Rx ondansetron 4 mg disintegrating 4 mg PO Q8H 3 days #9 tabs 06/20/22 07/28/22 Unknown Rx tablet pantoprazole 40 mg tablet,delayed 40 mg PO DAILY #60 tabs 07/02/22 07/28/22 Unknown Rx release (Protonix) hydrocodone 10 mg-acetaminophen 1 tab PO Q8H PRN pain 30 days #90 07/24/22 07/28/22 Unknown Rx 325 mg tablet tabs hydrocodone 5 mg-acetaminophen 325 1 tab PO BID PRN pain 60 days #60 07/24/22 07/28/22 Unknown Rx mg tablet tabs ondansetron 8 mg disintegrating 8 mg PO Q8H PRN nausea and 07/28/22 07/28/22 Unknown Rx tablet vomiting 5 days #15 tabs ondansetron 4 mg disintegrating See Rx Instructions .Route 08/01/22 Unknown Rx tablet .COMPLEX #14 tabs insulin detemir U-100 100 unit/mL See Rx Instructions .Route 08/14/22 Unknown Rx (3 mL) subcutaneous pen (Levemir .COMPLEX #15 mL FlexTouch U-100 Insulin) pen needle, diabetic 32 gauge x ##100 08/20/22 Unknown Rx 5/32 (TechLITE Pen Needle) Allergies Allergy/AdvReac Type Severity Reaction Status Date / Time gabapentin Allergy hallucinati Verified 07/28/22 11:22 ons Iodinated Contrast Media Allergy Unknown Verified 07/28/22 11:22 nifedipine [From Procardia] Allergy Unknown Verified 07/28/22 11:22 prochlorperazine Allergy Unknown Verified 07/28/22 11: [From Compazine] PFSH Acute PFSH: Medical History Abdominal pain Acidosis, lactic Anxiety and depression ASHD (arteriosclerotic heart disease) Cataracts, bilateral Chest pain CKD (chronic kidney disease) Diabetes Diabetic ketoacidosis Diabetic neuropathy Diabetic peripheral neuropathy Fibromyalgia Gastroparesis Gram-positive bacteremia Hyperlipidemia Hypertension Insomnia Intractable abdominal pain Intractable vomiting with nausea Left renal stone Leukocytosis Migraine Nausea and vomiting Odynophagia Pyelonephritis Pyuria Ureterolithiasis Surgical History H/O angioplasty H/O carpal tunnel repair H/O: hysterectomy History of cholecystectomy S/P ureteral stent placement Family History Mother , at age 65 Heart attack Father , at age 63 Heart attack Other Diabetes Hypertension Social History Smoking and tobacco status: current every day smoker Second hand smoke exposure: No Alcohol intake: never Adopted: No Caregiver/support person: Yes (spouse) Lives independently: Yes Household members: spouse Marital status: service: No Current occupational status: retired History of recent travel: No Current gender identity: Female Special vandana needs: No Agree to transfusion: Yes Vitals/I&O/Wt Last Vital Signs Temp 97.8 F 09/06/22 17:36 Pulse 110 H 09/06/22 21:53 Resp 16 09/06/22 21:53 BP 112/78 09/06/22 21:53 Pulse Ox 100 09/06/22 21:53 O2 Del Method 09/06/22 21:53 Weight last 48 hrs Weight 64.41 kg Physical Exam Narrative: General: Alert oriented x3, patient seen sitting up in bed appearing uncomfortable at this time states she has chest pain. Also having nausea and has vomited once. Food contents. HEENT: Normocephalic, atraumatic, EOMI, breathing normally. No acute respiratory distress. Cardio: Tachycardic, regular, normal S1-S2 Respiratory: Clear to auscultation bilaterally no wheezes or rhonchi, no crackles GI: Abdomen soft, nontender, nondistended, bowel sounds + Extremities: No lower extremity edema present Data 09/06/22 18:06 09/06/22 18:06 A&P Assessment and plan (1) NSTEMI (non-ST elevated myocardial infarction): (2) Nausea and vomiting: (3) Hypertension: Qualifiers: Hypertension type: essential hypertension Qualified Code(s): I10 - Essential (primary) hypertension (4) Gastroparesis: (5) Abdominal pain: (6) Hyperlipidemia: Qualifiers: Hyperlipidemia type: mixed hyperlipidemia Qualified Code(s): E78.2 - Mixed hyperlipidemia (7) Diabetes: Qualifiers: Diabetes mellitus complication status: without complication Diabetes mellitus penitentiary insulin use: with penitentiary use Diabetes mellitus type: type 2 Qualified Code(s): E11.9 - Type 2 diabetes mellitus without complications; Z79.4 - retirement (current) use of insulin (8) Leukocytosis: Plan #NSTEMI #Abdominal pain possibly secondary to diabetic gastroparesis versus hiatal hernia or above #History of Briceño's esophagus, moderate hiatal hernia #Leukocytosis most likely secondary to stress response versus true infection #Hypertension. #Hyperlipidemia #Chronic constipation #Insulin-dependent diabetes mellitus -Admit to [facility]SU -Started on aspirin, loaded with Plavix 300 then 75 mg thereafter daily, continue Nitropaste and monitor response, atorvastatin 80, metoprolol 100 twice daily, therapeutic Lovenox -It is possible that patient's chest pain is GI related however due to positive delta troponin, history of CAD status post PCI and 3 stents and her vague history there is suspicion of cardiac origin. ? Check lipid panel, hemoglobin A1c ? Check echo ? Cardiology consulted. We will check stat troponin and notify cardiology of the result. EKGs have been reviewed by them. Monitor patient on nitro drip for now. GI cocktail also ordered. ? We will check serial EKGs. Does have a history of left bundle branch block. ? Most recent EGD . See report ? Protonix 40 twice daily ? Reglan 5 mg 3 times daily ? Continue hydrocodone 5 3 times daily ? Moderate intensity insulin sliding scale ? Zofran as needed every 4 hours however would like to give Reglan before trying Zofran ? Continue Elavil 10 mg daily -We will continue to monitor patient off of antibiotics. Leukocytosis most likely due to stress response. ? check ct chest abd pelvis -We will order GI cocktail x1 and monitor response - Check urine drug screen. DNR/DNI. Family aware. Patient made this decision in presence of family. DVT prophylaxis: On therapeutic Lovenox Attestations Medical Necessity Statement*: Patient cross greater than 2 midnight stay for management of NSTEMI. Coding Level of Care Code Acute Facility Manager Histology for [facility] Fwd Diagnoses NSTEMI (non-ST elevated myocardial infarction) I21.4 Nausea and vomiting R11.2 Hypertension I10 Hypertension type: essential hypertension Gastroparesis K31.84 Abdominal pain R10.9 Hyperlipidemia E78.2 Hyperlipidemia type: mixed hyperlipidemia Diabetes E11.9; Z79.4 Diabetes mellitus complication status: without complication Diabetes mellitus regional intermodal truck driver insulin use: with regional intermodal truck driver use Diabetes mellitus type: type 2 Leukocytosis D72.829
[2022-09-06] MEDS: nitroglycerin 1 gm/inch oint Pkt 0.5 INCH TOPICAL (22:04)
[2022-09-06] MEDS: enoxaparin 80 mg/0.8 mL Syringe 70 MG SUBCUT (22:04)
[2022-09-06] MEDS: sodium chloride 0.9% 1,000 ML 150 ML IV (22:14)
[2022-09-06] MEDS: promethazine 25 mg/mL SDV 1 mL IM (22:15)
[2022-09-06] MEDS: aspirin 81 mg Chew Tablet 324 MG PO (22:25)
--- NOTE | 2022-09-06 22:25 | PC.NURSE ---
pt CO increase in chest pain. made aware. VO for new EKG to be obtained. EKG given to Arturo, no new orderes received.
[2022-09-06] MEDS: clopidogrel 300 mg Tablet 600 MG PO (22:34)
[2022-09-06] MEDS: pantoprazole 40 mg SDV IVP (23:10)
[2022-09-06 23:25] LABS: Estmated Average Glucose 163; Hemoglobin A1C 7.3 % (4.0-6.0)
[2022-09-06 23:35] LABS: NT Pro B Type Natriuretic Pept 888 pg/mL (0-450); Procalcitonin 0.06 ng/mL (0-0.5); Thyroid Stimulating Hormone 4.21 uIU/mL (0.27-4.20)
--- NOTE | 2022-09-06 23:41 | ECG_ITS ---
[facility] Test Date: 2022-09-06 Pat Name: Evelyn Farley Department: Room: Gender: Female Ditch Rider: : 1945 Requested By: Jeremias Crystal Order Number: [id number] Beverley MD: Sandip Sweet M.D. Measurements Intervals [place] Rate: 96 P: 57 SD: 174 QRS: 53 QRSD: 139 T: 117 QT: 371 QTc: 471 Interpretive Statements SINUS RHYTHM WITH MARKED SINUS ARRHYTHMIA LEFT BUNDLE BRANCH BLOCK [120+ ms QRS DURATION, 80+ ms Q/S IN V1/V2, 85+ ms R IN I/aVL/V5/V6] Compared to ECG 09/06/2022 19:32:51 No significant changes Electronically Signed On 09-07-2022 11:11:44 MALTSTER by Sandip Sweet M.D. [email or web address].[employer]/store/[id number]
[2022-09-06 23:45] LABS: Chol HDL Ratio 6.86 mg/dL (0.0-4.40); Cholesterol 295 mg/dL (0-200); HDL Cholesterol 43 mg/dL (60-100); LDL Cholesterol Calculated 191 mg/dL (50-129); LDL HDL Ratio 4.44 RATIO (0.00-3.22); Triglycerides 305 mg/dL (0-150)
[2022-09-06] MEDS: lidocaine 2% viscous 15 ML, aluminum-mag hydrox-simethicon 30 ML, sucralfate oral liq 1 GM PO (23:47)
[2022-09-06] MEDS: nitroglycerin drip 50 MG/250 ML PREMIX IV (23:59)
[2022-09-07] VITALS (40 sets, daily range): BP systolic 94–179; BP diastolic 34–105; PULSE 79–120; RESP 12–20; TEMP 37.1–37.9; O2SAT 89–99
--- NOTE | 2022-09-07 | USCV_ITS ---
Evelyn Farley Age: 76 Gender: F : 1945 Exam Date: 09/07/2022 09:41 Ordering Phys: Rylee Ulrich MD Technologist: Natalie Murphy [place] [facility] [place]: High Heart Rate with Chest Pain BP: 119 / 70 HR: 84 Rhythm: Sinus Technical Quality: Adequate MEASUREMENTS (Male / Female) Normal Values 2D ECHO LV Diastolic Diameter PLAX 3.1 cm 4.2 - 5.9 / 3.9 - 5.3 cm LV Systolic Diameter PLAX 2.6 cm LV Chamber Size 3.0 cm IVS Diastolic Thickness 1.2 cm 0.6 - 1.0 / 0.6 - 0.9 cm IVS Systolic Thickness 1.0 cm LVPW Diastolic Thickness 1.3 cm 0.6 - 1.0 / 0.6 - 0.9 cm LVPW Systolic Thickness 1.4 cm RV Chamber Size 2.9 cm LVOT Diameter 2.0 cm LV Ejection Fraction 2D Teich 39.4 % LV Ejection Fraction MOD 2C 27.7 % LV Ejection Fraction 2C AL 26.8 % LA Diameter 2.9 cm LA Width 3.2 cm LA Height 3.1 cm RA Width 2.8 cm RA Height 2.9 cm Aorta at Sinotubular Diameter 2.6 cm IVC Diameter 1.2 cm M-MODE Aortic Annulus Diameter 3.2 cm LA Ao Ratio MM 1.1 MV E Point Septal Separation 0.5 cm DOPPLER AV Peak Velocity 152.0 cm/s LVOT Peak Velocity 94.7 cm/s AV Area Cont Eq vti 2.0 cm squared AV Area Cont Eq pk 2.0 cm squared MV Area PHT 5.1 cm squared Mitral E to A Ratio 0.7 MV E' Velocity 45.0 cm/s Mitral E to MV E' Ratio 18.8 Mitral E to LV E' Lateral Ratio 19.6 Mitral E to LV E' Septal Ratio 18.0 TR Peak Velocity 180.8 cm/s TR Peak Gradient 13.1 mmHg TR Mean Velocity 119.0 cm/s TR Mean Gradient 6.3 mmHg TR Velocity Time Integral 37.7 cm TV Peak E Velocity 77.0 cm/s Right Atrial Pressure 3.0 mmHg Pulmonary Artery Systolic Pressu 16.1 mmHg RV Acceleration Time 0.1 s RV Ejection Time 0.3 s RV AcT/ET 0.3 FINDINGS Left Ventricle Technically limited quality echocardiogram because of poor ultrasonic windows. LV systolic function is borderline reduced with EF of 45 to 50%. Mild to moderate hypokinesis of apical wall seen. Grade 1 diastolic dysfunction Right Ventricle RV is normal in size and function Right Atrium Normal in size Left Atrium Normal in size Mitral Valve Grossly normal Aortic Valve Structurally normal aortic valve. No significant stenosis or regurgitation Tricuspid Valve Trace tricuspid regurgitation. Pulmonary artery systolic pressure is normal. Pulmonic Valve Not well-visualized Pericardium Normal Aorta Normal in size IVC Appears to be normal CONCLUSIONS Technically limited quality echocardiogram because of poor ultrasonic windows. LV systolic function is borderline reduced with EF of 45 to 50%. Mild to moderate hypokinesis of apical wall is seen. Grade 1 diastolic dysfunction. Trace tricuspid regurgitation No comparison studies are available Sandip Sweet MD (Electronically Signed) Final Date: 07 September 2022 12:31 S
--- NOTE | 2022-09-07 00:04 | PC.NURSE ---
Patient received from ED via stretcher. Transferred to bed x3 assist. Patient c/o persistent nausea. GI cocktail give as ordered. Patient was able to ingest all of this however was only able to keep down for just a couple of minutes. Family at bedside. Nitroglycerin drip started as ordered and documented. Provided instruction regarding GI cocktail and nitro to patient and family. All verbalized complete understanding.
[2022-09-07 00:14] LABS: Troponin 5 6HR 84.25 ng/L (0-10)
--- NOTE | 2022-09-07 00:25 | CTR_ITS ---
PROCEDURE INFORMATION: Exam: CT Chest Without Contrast; Diagnostic Exam date and time: 09/07/2022 1:54 AM Age: 76 years old Clinical indication: Nausea and vomiting; Abdominal pain; Shortness of breath; Sternal or substernal pain; Prior surgery; Surgery type: Hyst, gb; Additional info: Chest pain, HX hiatal hernia, n/v TECHNIQUE: Imaging protocol: Diagnostic computed tomography of the chest without contrast. Radiation optimization: All CT scans at this facility use at least one of these dose optimization techniques: automated exposure control; mA and/or kV adjustment per patient size (includes targeted exams where dose is matched to clinical indication); or iterative reconstruction. COMPARISON: CR (CHEST, ) 09/06/2022 6:58 PM RADIATION DOSE METRICS: Total DLP (mGy-cm): 607.04 FINDINGS: Lungs: Background of centrilobular emphysema. Calcifications are seen in the tracheobronchial tree. Pleural spaces: Unremarkable. No pneumothorax. No pleural effusion. Heart: Prominent calcifications are seen in the coronary arteries. Calcifications are present within the mitral and aortic valves. Lymph nodes: Unremarkable. No enlarged lymph nodes. Vasculature: Calcifications are seen within the thoracic aorta. Diaphragm: There is a small hiatal hernia present. Bones/joints: Unremarkable. No acute fracture. Soft tissues: Unremarkable. PROCEDURE INFORMATION: Exam: CT Abdomen And Pelvis Without Contrast Exam date and time: 09/07/2022 1:54 AM Age: 76 years old Clinical indication: Nausea and vomiting; Abdominal pain; Shortness of breath; Sternal or substernal pain; Prior surgery; Surgery type: Hyst, gb; Additional info: Chest pain, HX hiatal hernia, n/v TECHNIQUE: Imaging protocol: Computed tomography of the abdomen and pelvis without contrast. Radiation optimization: All CT scans at this facility use at least one of these dose optimization techniques: automated exposure control; mA and/or kV adjustment per patient size (includes targeted exams where dose is matched to clinical indication); or iterative reconstruction. COMPARISON: CT abdomen pelvis wo con [id number] 07/05/2022 1:00 AM RADIATION DOSE METRICS: Total DLP (mGy-cm): 607.04 FINDINGS: Liver: Normal. No mass. Gallbladder and bile ducts: Status post cholecystectomy. The common bile duct is prominent measuring 15 mm in its midportion tapering to normal caliber within the pancreas. Pancreas: Normal. No ductal dilation. Spleen: Normal. No splenomegaly. Adrenal glands: Normal. No mass. Kidneys and ureters: Strandy opacities are seen in the perinephric fascia bilaterally likely representing chronic scarring. There are numerous calcifications seen in the right kidney and deformity of the posterior aspect of the right kidney compatible with chronic scarring and dystrophic calcifications. These findings appear stable compared with 07/05/2022. Punctate calcifications seen within the left kidney measuring 3 mm. Stomach and bowel: There is some haziness seen along the serosal margin of the colon and there is mild thickening of the transverse colonic bowel wall, findings that could represent mild colitis. Appendix: No evidence of appendicitis. Intraperitoneal space: Unremarkable. No free air. No significant fluid collection. Vasculature: Calcifications are seen within the abdominal aorta, iliac arteries bilaterally and branches of the celiac trunk and renal arteries. Lymph nodes: Unremarkable. No enlarged lymph nodes. Urinary bladder: Unremarkable as visualized. Reproductive: Status post hysterectomy. Bones/joints: Unremarkable. No acute fracture. Soft tissues: Unremarkable. CT/[place] [id number] IMPRESSION: 1. Small hiatal hernia 2. There are no acute chest findings. 3. 2. IMPRESSION: 1. Haziness seen along the serosal margin of the colon and mild thickening of the transverse colonic bowel wall, findings that may represent mild colitis. 2. Stable dystrophic calcifications within the right kidney and scarring of the posterior aspect of the right kidney. Stable 3 mm nonobstructing left renal calculus.
[2022-09-07 00:31] LABS: Troponin 5 6HR Delta 58.25 ng/L (0-12)
[2022-09-07] MEDS: metoclopramide 5 mg/mL SDV 2 mL IVP ×3 (00:41→16:45)
[2022-09-07 00:55] LABS: Charge for UA Resulting for Rev
[2022-09-07 01:01] LABS: Add Urine Microscopic? YES; Bilirubin Urine Neg (Negative); Blood Urine Neg (Negative); Glucose Urine UA 4+ (Normal); Ketones Urine 2+ (Negative); Leukocyte Esterase Urine Negative (Negative); Nitrate Urine Negative (Negative); Protein Urine 1+ (Negative); Urine Appearance Clear (CLEAR); Urine Color Yellow (Yellow); Urobilinogen Urine Norm (Negative); pH Urine 5 (5-7)
--- NOTE | 2022-09-07 01:41 | PC.NURSE ---
Informed Dr Ulrich of relief of pain and nausea. Doctor informed me of plan for LHC in the morning.
[2022-09-07] MEDS: HYDROcodone-acetaminophen 5-325 mg Tablet 1 TAB PO ×2 (02:16→19:10)
[2022-09-07 03:53] LABS: Basophils % 0.1 %; Eosinophils % 0.1 %; Hematocrit 32.1 % (37.0-47.0); Hemoglobin 10.5 g/dL (11.5-15.3); Lymphocytes # 0.9 10^3/uL (0.8-4.8); Lymphocytes % 9.3 %; Mean Corpuscular HGB Conc 32.7 g/dL (30.0-36.0); Mean Corpuscular Hemoglobin 29.8 pg (28.0-34.0); Mean Corpuscular Volume 91.2 fl (81-99); Mean Platelet Volume 11.9 fL (7.4-10.4); Monocytes # 0.2 10^3/uL (0.2-0.9); Monocytes % 2.1 %; Neutrophils # 8.31 10^3/uL (1.8-7.7); Nucleated Red Blood Cells % 0 %; Red Blood Count 3.52 10^6/uL (4.1-5.3); Red Cell Distribution Width 14.4 % (12.1-15.1); White Blood Count 9.5 10^3/uL (4.0-10.0)
[2022-09-07] MEDS: sodium chloride 0.9% 1,000 ML 100 ML IV (03:56)
[2022-09-07 04:06] LABS: Alkaline Phosphatase 108 U/L (35-105); Blood Urea Nitrogen 25 mg/dL (8-23); Calcium 8.7 mg/dL (8.5-10.5); Carbon Dioxide 16 mmol/L (22-29); Chloride 98 mmol/L (98-107); Globulin 2.7 g/dL (1.3-4.6); Glucose 485 mg/dL (65-115); Lipase 8 U/L (13-60); Magnesium 1.6 mg/dL (1.7-2.3); Osmolality Calculated 306 mOsm/kg (285-295); Sodium 135 mmol/L (136-145); Total Bilirubin 0.4 mg/dL (0.15-1.2); Total Protein 6.7 g/dL (6.6-8.7)
[2022-09-07 04:08] LABS: Lactic Sepsis W/Reflex 3.2 mmol/L (0.5-2.2)
[2022-09-07 04:10] LABS: Alanine Aminotransferase 14 U/L (0-33); Anion Gap 25.6 (5-19); Aspartate Amino Transferase 27 U/L (0-32); Potassium 4.6 mmol/L (3.5-5.1)
[2022-09-07 04:12] LABS: Slide Review Slide Review Perform
[2022-09-07 05:19] LABS: Reflex Lactate Order REFLEX LACTIC ORDERD
[2022-09-07 06:14] LABS: Glucose Point of Care 535 mg/dL (70-110)
[2022-09-07] MEDS: ondansetron 2 mg/ML SDV 2 mL 4 MG IVP ×3 (06:36→17:28)
--- NOTE | 2022-09-07 06:37 | PC.NURSE ---
Spoke with Dr Ulrich regarding patient and received orders to transfer patient to ICU due to potential DKA. Patient continues to c/o epigastric pain presently but is not feeling as nauseous.
[2022-09-07] MEDS: insulin regular-human 250 UNIT in sodium chloride 0.9% 250 ML 14.04 UNIT IV (06:52)
[2022-09-07 06:53] LABS: Glucose Point of Care 522 mg/dL (70-110)
[2022-09-07] MEDS: ciprofloxacin 400 MG/200 ML PREMIX 200 MG IV (07:59)
[2022-09-07] MEDS: metroNIDAZOLE IV 500 MG/100 ML PREMIX 100 MG IV ×3 (07:59→21:23)
[2022-09-07] MEDS: metoprolol tartrate 50 mg Tablet 100 MG PO ×2 (08:00→17:01)
[2022-09-07 08:46] LABS: Glucose Point of Care 419 mg/dL (70-110)
[2022-09-07 08:48] LABS: ABG PCO2 30.8 mmHg (35-45); ABG PH Result 7.41 (7.35-7.45); Alveolar-Arterial Oxygen Gradi 4.8 mmHg (5-10); Arterial Blood Gas Hematocrit 35.6 % (37-47); Blood Gas Allen Test Pos; Blood Gas Operator Identificat GD; Blood Gas Sample Site Radial, right; Blood Gas Sample Type Arterial; Carboxyhemoglobin 0.1 %THgb (0.4-20.1); HCO3 ABG 19.7 mmol/L (22-26); HGB O2 Sat 93.5 % (95-100); Ionized Calcium Level - ABG 1.1 mmol/L (1.1-1.4); Oxygen Device ROOM AIR; Oxygen Saturation ABG 94.5; PO2 ABG 74.6 mmHg (80.0-100.0); Potassium Level - ABG 3.1 mmol/L (3.5-5.0); Total Hemoglobin 11.6 g/dL (12-16)
[2022-09-07 09:08] LABS: Glucose Point of Care 496 mg/dL (70-110)
[2022-09-07 09:08] LABS: Glucose Point of Care 108 mg/dL (70-110)
[2022-09-07 09:26] LABS: Ketone (Acetest) Serum Negative (Negative)
[2022-09-07 09:36] LABS: Anion Gap 23.2 (5-19); Blood Urea Nitrogen 25 mg/dL (8-23); Calcium 8.9 mg/dL (8.5-10.5); Carbon Dioxide 17 mmol/L (22-29); Chloride 100 mmol/L (98-107); Glucose 409 mg/dL (65-115); Osmolality Calculated 306 mOsm/kg (285-295); Potassium 3.2 mmol/L (3.5-5.1); Sodium 137 mmol/L (136-145)
[2022-09-07 09:42] LABS: Procalcitonin 0.35 ng/mL (0-0.5)
[2022-09-07 09:47] LABS: Lactic Acid level (Lactate) 6.2 mmol/L (0.5-2.2)
[2022-09-07 09:54] LABS: Troponin T (5th) Once 157 ng/L (0-10)
--- NOTE | 2022-09-07 10:17 | P.PN_ITS ---
Subjective Subjective: Patient reports ongoing abdominal pain, mostly in the epigastric region. Reports very faint chest pain, she states it is almost resolved. Denies fevers, chills, focal weakness or headache. She has two daughters who are bedside and updated. Medications: Reviewed: Yes Vitals/I&O/Wt Last Vital Signs Temp 100.3 F H 09/07/22 03:51 Pulse 85 09/07/22 09:17 Resp 15 09/07/22 03:51 BP 165/96 09/07/22 03:51 Pulse Ox 97 09/07/22 09:17 O2 Del Method 09/07/22 09:17 09/06/22 09/07/22 09/07/22 22:59 06:59 14:59 Intake Total 1908.90 / 1908.90 Output Total 250 / 250 Balance 1658.90 / 1658.90 Weight last 48 hrs Weight 64.41 kg Physical Exam Narrative: General: Patient is awake. Appears acutely ill. Febrile. Head: Normocephalic. Atraumatic. EOMI. Neck: No JVD. Cardiovascular: RRR. No gallops. No murmurs. No peripheral edema. Hypertensive. Lungs: Clear to auscultation, no use of accessory muscles, no crackles or wheezes. Skin: No jaundice. No rashes. Abdomen: Mild tenderness to palpation in epigastric region. Not distended. Hypoactive bowel sounds. Genito Urinary: Genital exam not performed since complaints not related. Rectal: Rectal exam not performed since no symptoms indicated blood loss. Extremities: No cyanosis or clubbing. Musculoskeletal: No swollen or erythematous joints. Neurological: Moves all 4 extremities. No myoclonus. Data 09/07/22 03:05 09/07/22 08:50 A&P Assessment and plan (1) DKA (diabetic ketoacidosis): Associated with uncontrolled hyperglycemia Continue IVF fluids, change to dextrose based fluid when glycemic control impro ves Monitor potassium closely with BMP Q4H Continue IV insulin infusion Hypoglycemia protocol (2) Colitis: Continue ciprofloxacin Continue metronidazole Obtain inflammatory markers Plan for stool studies if she develops loose stools (3) NSTEMI (non-ST elevated myocardial infarction): NSTEMI versus acute myocardial injury Stat echo is pending Personally discussed patient with cardiology Continue to monitor symptomatology Continuous telemetry monitoring Continue aspirin Continue Plavix Continue high intensity statin Continue therapeutic Lovenox Wean off nitro ip (4) Hypertension: Continue metoprolol Provide appropriate analgesia (5) Hyperlipidemia: Continue high intensity statin Qualifiers: Hyperlipidemia type: mixed hyperlipidemia Qualified Code(s): E78.2 - M ixed hyperlipidemia (6) Gastroparesis: Suspected given long history of diabetes Would benefit from outpatient gastric emptying study Continue Reglan Plan DVT ppx: Lovenox Code status: Full Code Attestations Medical Necessity Statement*: Patient requires ongoing hospitalization for IV insulin infusion, IV fluids, electrolyte monitoring and replacement, telemetry monitoring, echo, IV antibiotics, and supportive care. Critical Care Time: The high probability of a clinically significant, sudden or life threatening deterioration of the patient's endocrine system(s) required my full and direct attention, intervention and personal management. The critical care time is as shown. This time is in addition to time spent performing any reported procedures but includes the following: [x] Data and vital sign review and interpretation [x] Patient assessment, examination and intervention [x] Documentation [x] Medication orders and management Critical Care Time (min): 55 Coding Level of Care Code Acute Furnace Combination Analyst for [facility] Fwd Diagnoses DKA (diabetic ketoacidosis) E11.10 Colitis K52.9 NSTEMI (non-ST elevated myocardial infarction) I21.4 Hypertension I10 Hyperlipidemia E78.2 Hyperlipidemia type: mixed hyperlipidemia Gastroparesis K31.84
[2022-09-07 10:30] LABS: Glucose Point of Care 271 mg/dL (70-110)
[2022-09-07] MEDS: enoxaparin 60 mg/0.6 mL Syringe SUBCUT (10:42)
[2022-09-07] MEDS: pantoprazole 40 mg SDV IVP ×2 (10:43→22:17)
[2022-09-07] MEDS: potassium chloride ER 20 mEq Tablet 40 MEQ PO ×2 (10:43→14:09)
[2022-09-07 11:06] LABS: Anion Gap 21.3 (5-19); Blood Urea Nitrogen 27 mg/dL (8-23); Carbon Dioxide 20 mmol/L (22-29); Chloride 101 mmol/L (98-107); Glucose 254 mg/dL (65-115); Osmolality Calculated 302 mOsm/kg (285-295); Potassium 3.3 mmol/L (3.5-5.1); Sodium 139 mmol/L (136-145)
[2022-09-07 11:14] LABS: Glucose Point of Care 246 mg/dL (70-110)
[2022-09-07] MEDS: D5-NS 0.45% + KCL 20 mEq 20 MEQ/1,000 ML BAG 150 MEQ IV (11:16)
[2022-09-07 12:11] LABS: Glucose Point of Care 189 mg/dL (70-110)
[2022-09-07] MEDS: perflutren protein-a microsphr 0.22 mg/mL SDV 3 mL IV (12:35)
[2022-09-07 14:10] LABS: Glucose Point of Care 167 mg/dL (70-110)
[2022-09-07 14:13] LABS: Glucose Point of Care 161 mg/dL (70-110)
[2022-09-07 15:07] LABS: Glucose Point of Care 176 mg/dL (70-110)
[2022-09-07 15:19] LABS: Anion Gap 15.9 (5-19); Blood Urea Nitrogen 28 mg/dL (8-23); Calcium 8.8 mg/dL (8.5-10.5); Carbon Dioxide 22 mmol/L (22-29); Chloride 103 mmol/L (98-107); Glucose 177 mg/dL (65-115); Osmolality Calculated 294 mOsm/kg (285-295); Potassium 3.9 mmol/L (3.5-5.1); Sodium 137 mmol/L (136-145)
[2022-09-07 16:00] LABS: Glucose Point of Care 185 mg/dL (70-110)
[2022-09-07] MEDS: insulin glargine 100 units/1 mL 70 UNIT SUBCUT (16:50)
[2022-09-07] MEDS: insulin lispro 100 unit/1 mL SUBCUT ×2 (16:51→20:03)
[2022-09-07] MEDS: atorvastatin 40 mg Tablet 80 MG PO (20:02)
[2022-09-07] MEDS: aspirin 81 mg EC Tablet PO (20:02)
[2022-09-07 20:12] LABS: Glucose Point of Care 222 mg/dL (70-110)
[2022-09-07 20:27] LABS: Lactate (Lactic Acid level) 2.8 mmol/L (0.5-2.2)
[2022-09-07 20:28] LABS: Blood Urea Nitrogen 28 mg/dL (8-23); Calcium 8.9 mg/dL (8.5-10.5); Carbon Dioxide 22 mmol/L (22-29); Chloride 102 mmol/L (98-107); Glucose 220 mg/dL (65-115); Osmolality Calculated 296 mOsm/kg (285-295); Sodium 137 mmol/L (136-145)
[2022-09-07 20:30] LABS: Troponin T (5th) Once 154 ng/L (0-10)
--- NOTE | 2022-09-07 20:35 | PC.NURSE ---
Physician Communication Patient's troponin level came back critical at 154. Additionally, patient has 2 maintenance fluids ordered with no fluids administering. Dr. Heredia notified; order received to run NS at 50 ml/hr. No other orders received.
[2022-09-07] MEDS: sodium chloride 0.9% 1,000 ML 50 ML IV (21:20)
--- NOTE | 2022-09-07 22:30 | PC.NURSE ---
Chest Pain At 2230, patient became very short of breath and tachypneic, complaining of severe chest tightness. Dr. Heredia contacted and order received for sublingual nitro 0.4mg tablet PRN Q5min for chest pain, EKG series, and a troponin series. 1 tablet administered, chest pain relieved within 5 minutes. EKG showed no acute changes, troponin levels drawn.
--- NOTE | 2022-09-07 22:33 | ECG_ITS ---
[facility] Test Date: 2022-09-07 Pat Name: Evelyn Farley Department: Room: ICU03 Gender: Female Probate Paralegal: : 1945 Requested By: Gurdeep Heredia Order Number: [id number] Beverley MD: Sandip Sweet M.D. Measurements Intervals [place] Rate: 94 P: 72 [place]: 141 QRS: 5 QRSD: 134 T: 140 QT: 378 QTc: 474 Interpretive Statements SINUS RHYTHM INTRAVENTRICULAR CONDUCTION DELAY [130+ ms QRS DURATION] POSSIBLE ANTERIOR MYOCARDIAL INFARCTION , OF INDETERMINATE AGE [30 ms Q WAVE IN V3/V4, OR R < 0.2 mV IN V4] Compared to ECG 09/06/2022 21:03:57 Intraventricular conduction delay now present Myocardial infarct finding now present Sinus arrhythmia no longer present Left bundle-branch block no longer present Electronically Signed On 09-08-2022 11:01:01 FOOD EQUIPMENT SERVICE TECHNICIAN by Sandip Sweet M.D. [id number]
[2022-09-07] MEDS: nitroglycerin 0.4 mg sublingual Tablet SUBLINGUAL (22:37)
[2022-09-07 23:21] LABS: Glucose Point of Care 171 mg/dL (70-110)
[2022-09-08] VITALS (52 sets, daily range): BP systolic 129–192; BP diastolic 74–116; PULSE 86–113; RESP 14–24; TEMP 36.6–37.1; O2SAT 88–99; BMI 32.5
[2022-09-08] MEDS: metoclopramide 5 mg/mL SDV 2 mL IVP ×3 (00:03→15:21)
[2022-09-08 00:28] LABS: Anion Gap 15.8 (5-19); Blood Urea Nitrogen 27 mg/dL (8-23); Calcium 8.7 mg/dL (8.5-10.5); Carbon Dioxide 23 mmol/L (22-29); Chloride 105 mmol/L (98-107); Glucose 177 mg/dL (65-115); Osmolality Calculated 299 mOsm/kg (285-295); Potassium 3.8 mmol/L (3.5-5.1); Sodium 140 mmol/L (136-145)
--- NOTE | 2022-09-08 00:29 | ECG_ITS ---
[facility] Test Date: 2022-09-08 Pat Name: Evelyn Farley Department: Room: ICU03 Gender: Female Ux Consultant: : 1945 Requested By: Gurdeep Heredia Order Number: [id number] Beverley MD: Sandip Sweet M.D. Measurements Intervals [place] Rate: 93 P: 70 [place]: 139 QRS: -2 QRSD: 135 T: 138 QT: 390 QTc: 487 Interpretive Statements SINUS RHYTHM LEFT BUNDLE BRANCH BLOCK [120+ ms QRS DURATION, 80+ ms Q/S IN V1/V2, 85+ ms R IN I/aVL/V5/V6] Compared to ECG 09/07/2022 22:37:54 Left bundle-branch block now present Intraventricular conduction delay no longer present Myocardial infarct finding no longer present Electronically Signed On 09-08-2022 11:07:35 NARROW FABRIC LOOM FIXER by Sandip Sweet M.D. [email or web address]/store/[id number]
[2022-09-08 00:41] LABS: Troponin(5th) Baseline 131 ng/L (0-10)
[2022-09-08 02:20] LABS: Troponin 5 2HR 123.1 ng/L (0-10); Troponin 5 2HR Delta -7.9 ABS# (0-10)
[2022-09-08] MEDS: lisinopril 20 mg Tablet 40 MG PO ×2 (03:41→20:39)
--- NOTE | 2022-09-08 05:48 | ECG_ITS ---
[facility] Test Date: 2022-09-08 Pat Name: Evelyn Farley Department: Room: ICU03 Gender: Female Diversified Crops Ii Farmworker: : 1945 Requested By: Gurdeep Heredia Order Number: [id number] Beverley MD: Sandip Sweet M.D. Measurements Intervals [place] Rate: 107 P: 76 ID: 154 QRS: -2 QRSD: 132 T: 133 QT: 369 QTc: 493 Interpretive Statements SINUS TACHYCARDIA WITH OCCASIONAL VENTRICULAR PREMATURE COMPLEXES LEFT BUNDLE BRANCH BLOCK [120+ ms QRS DURATION, 80+ ms Q/S IN V1/V2, 85+ ms R IN I/aVL/V5/V6] Compared to ECG 09/08/2022 00:29:12 Ventricular premature complex(es) now present Sinus rhythm no longer present Electronically Signed On 09-08-2022 11:07:22 OWNER SPA DIRECTOR by Sandip Sweet M.D. [email or web address].[email or web address]/store/[id number]
[2022-09-08 06:03] LABS: Basophils % 0.1 %; Eosinophils % 0.1 %; Hematocrit 35.2 % (37.0-47.0); Hemoglobin 11.1 g/dL (11.5-15.3); Lymphocytes # 2.3 10^3/uL (0.8-4.8); Lymphocytes % 10.9 %; Mean Corpuscular HGB Conc 31.5 g/dL (30.0-36.0); Mean Corpuscular Hemoglobin 29.9 pg (28.0-34.0); Mean Corpuscular Volume 94.9 fl (81-99); Mean Platelet Volume 11.4 fL (7.4-10.4); Monocytes % 4.8 %; Neutrophils # 17.94 10^3/uL (1.8-7.7); Neutrophils % 83.4 %; Nucleated Red Blood Cells % 0 %; Platelet Count 255 10^3/cmm (130-400); Red Blood Count 3.71 10^6/uL (4.1-5.3); White Blood Count 21.5 10^3/uL (4.0-10.0)
[2022-09-08] MEDS: hyDRALAzine 20 mg/mL INJ 1 mL 5 MG IVP (06:26)
[2022-09-08] MEDS: metroNIDAZOLE IV 500 MG/100 ML PREMIX 100 MG IV ×3 (06:26→22:03)
[2022-09-08] MEDS: ciprofloxacin 400 MG/200 ML PREMIX 200 MG IV (06:26)
[2022-09-08 06:31] LABS: Alanine Aminotransferase 12 U/L (0-33); Albumin Level 3.7 g/dL (3.5-5.2); Alkaline Phosphatase 95 U/L (35-105); Aspartate Amino Transferase 19 U/L (0-32); Blood Urea Nitrogen 24 mg/dL (8-23); Calcium 8.5 mg/dL (8.5-10.5); Carbon Dioxide 20 mmol/L (22-29); Chloride 103 mmol/L (98-107); Globulin 2.7 g/dL (1.3-4.6); Glucose 230 mg/dL (65-115); Magnesium 1.8 mg/dL (1.7-2.3); Osmolality Calculated 295 mOsm/kg (285-295); Phosphorus 2.5 mg/dL (2.5-4.5); Sodium 137 mmol/L (136-145); Total Bilirubin 0.7 mg/dL (0.15-1.2); Total Protein 6.4 g/dL (6.6-8.7)
[2022-09-08 06:33] LABS: Troponin 5 6HR 107.2 ng/L (0-10); Troponin 5 6HR Delta -23.8 ng/L (0-12)
[2022-09-08 06:34] LABS: Anion Gap 17.8 (5-19); Potassium 3.8 mmol/L (3.5-5.1)
[2022-09-08 06:59] LABS: Slide Review Slide Review Perform
[2022-09-08 07:16] LABS: Glucose Point of Care 300 mg/dL (70-110)
--- NOTE | 2022-09-08 07:16 | PC.NURSE ---
Blood Pressure Patient's blood pressure slowly increasing throughout the night with a blood pressure of 175/[address] Ulrich notified and order received to start home dose of 10 mg ramipril PO at bedtime with one dose now. This medication nonformulary, pharmacy replaced with 40 mg losinipril. See MAR for details. At 0615, patient's blood pressure 184/116. Dr. Ulrich contacted again and order received for 5 mg hydralazine IVP once. Medication administered per DEC.
[2022-09-08] MEDS: insulin lispro 100 unit/1 mL SUBCUT ×6 (07:37→17:40)
[2022-09-08] MEDS: metoprolol tartrate 50 mg Tablet 100 MG PO ×2 (07:37→17:40)
[2022-09-08] MEDS: nitroglycerin 0.4 mg sublingual Tablet SUBLINGUAL (07:46)
--- NOTE | 2022-09-08 08:10 | PC.NURSE ---
patient reporting chest tightness and 6/10 pain and feeling of fast HR, Noted HR of 112 Bp elevated provider notified of events instructions to give morning does of metoprolol early nitro sublingual given chest pain resolved with nitro HR down WNL
--- NOTE | 2022-09-08 09:08 | P.PN_ITS ---
Subjective Subjective: Patient reports her abdominal pain is better than yesterday. Endorses being NPO for possible cardiac cath evaluation today. Denies fevers, chills, nausea or emesis. is bedside and updated on plan of care. Medications: Reviewed: Yes Vitals/I&O/Wt Last Vital Signs Temp 98.8 F 09/08/22 04:00 Pulse 105 H 09/08/22 08:00 Resp 14 09/08/22 00:00 BP 157/83 09/08/22 08:00 Pulse Ox 95 09/08/22 08:00 O2 Del Method 09/08/22 04:00 O2 Flow Rate 2 09/08/22 04:00 09/07/22 09/08/22 09/08/22 22:59 06:59 14:59 Intake Total 270.352 / 231.622 0852 / 1552 Output Total 200 / 200 525 / 725 Balance 70.352 / 270.352 -525 / -428.874 8920 / 1552 Weight last 48 hrs Weight 80.694 kg Weight 64.41 kg Physical Exam Narrative: General: Patient is awake. Alert. Head: Normocephalic. Atraumatic. EOMI. Neck: No JVD. Cardiovascular: No gallops. No murmurs. No peripheral edema. Tachycardic. Lungs: Clear to auscultation, no use of accessory muscles, no crackles or wheezes. Skin: No jaundice. No rashes. Abdomen: Non-tender. Not distended. Hypoactive bowel sounds. Genito Urinary: Genital exam not performed since complaints not related. Rectal: Rectal exam not performed since no symptoms indicated blood loss. Extremities: No cyanosis or clubbing. Musculoskeletal: No swollen or erythematous joints. Neurological: Moves all 4 extremities. No myoclonus. 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 DKA has resolved Continue Lantus at home dose Continue scheduled meal time Lispro Sliding scale insulin correction Hypoglycemia protocol (2) Colitis: With sepsis SIRS: Tachycardia, Leukocytosis Source: Colitis Follow up cultures Continue ciprofloxacin Continue metronidazole (3) NSTEMI (non-ST elevated myocardial infarction): NSTEMI versus acute myocardial injury Echo w/ borderline EF 45-50%, mild to moderate hypokinesis of apical wall, grade 1 diastolic dysfunction Cardiology following NPO pending cardiology evaluation Continuous telemetry monitoring Continue aspirin Continue Plavix Continue high intensity statin Continue therapeutic Lovenox (4) Hypertension: Continue metoprolol Continue lisinopril (5) Hyperlipidemia: Continue high intensity statin Qualifiers: Hyperlipidemia type: mixed hyperlipidemia Qualified Code(s): E78.2 - Mixed hyperlipidemia (6) Gastroparesis: Suspected given long history of diabetes Would benefit from outpatient gastric emptying study Continue Reglan Plan DVT ppx: Lovenox Code status: Full Code Attestations Medical Necessity Statement*: Patient requires ongoing hospitalization for IV fluids, electrolyte monitoring, telemetry monitoring, cardiology evaluation, IV antibiotics, and supportive care. Coding Level of Care Code Acute Enterprise Solutions Architect for g Fwd Diagnoses DKA (diabetic ketoacidosis) E11.10 Colitis K52.9 NSTEMI (non-ST elevated myocardial infarction) I21.4 Hypertension I10 Hyperlipidemia E78.2 Hyperlipidemia type: mixed hyperlipidemia Gastroparesis K31.84
[2022-09-08 11:11] LABS: Glucose Point of Care 194 mg/dL (70-110)
[2022-09-08] MEDS: enoxaparin 60 mg/0.6 mL Syringe SUBCUT (11:42)
[2022-09-08] MEDS: pantoprazole 40 mg SDV IVP ×2 (11:42→22:02)
[2022-09-08] MEDS: sodium chloride 0.9% 1,000 ML 50 ML IV ×2 (14:11→21:05)
[2022-09-08] MEDS: HYDROcodone-acetaminophen 5-325 mg Tablet 1 TAB PO ×2 (14:17→22:02)
[2022-09-08] MEDS: ondansetron 2 mg/ML SDV 2 mL 4 MG IVP (17:09)
[2022-09-08 17:23] LABS: Glucose Point of Care 194 mg/dL (70-110)
[2022-09-08] MEDS: insulin glargine 100 units/1 mL 20 UNIT SUBCUT (17:49)
--- NOTE | 2022-09-08 20:11 | P.CONIM_ITS ---
Providers/Reason For Consult Consulting Physician/Specialty*: Sanidp Sweet MD/Cardiology Reason for Consult*: NSTEMI Requesting Physician: Dr Ulrich Attending Physician: Johan Byrne MD Primary Care Provider: Jane Strickland MD History of Present Illness History of Present Illness (Please consider this note documentation for 08/07/2022 as note was missed yesterday) Evelyn Farley is a 76 year old female with past medical history of diabetes, Briceño's esophagus, CKD, hyperlipidemia, hypertension, coronary artery disease who presented to the hospital overnight with epigastric pain. She also has occasional vomiting episodes. While in the ER she started noticing chest discomfort. It was burning in sensation. She was started on nitro drip. Her troponin increased from baseline of 26 to 84 at 6 hours. Nitro gtt improved chest discomfort which has some atypical features to it. Lactic acid is elevated. EKG has LBBB that is known for her. ECHO performed this AM shows mildly reduce LV function with EF of 45-50%. Review of Systems Const: Denies: fever(s) or chills ENMT: Denies: throat pain, ear or mastoid pain, nasal discharge or nasal congestion Card: Reports: chest pain; Denies: palpitations, edema, dyspnea on exertion or orthopnea Resp: Denies: dyspnea, productive cough or non-productive cough GI: Reports: nausea, vomiting and GI cramping; Denies: hematemesis, coffee ground emesis, heartburn, diarrhea, constipation, bloating, belching, excessive flatus, fecal incontinence, change in bowel habits, change in stool character, hematochezia or melena : Denies: dysuria or hematuria Skin/Breast: Denies: rash or pruritus Medications/Allergies Home Medications Medication Instructions Recorded Confirmed Last Taken Type aspirin 81 mg tablet,delayed 81 mg PO BEDTIME 10/28/19 09/07/22 09/06/22 History release (Adult Low Dose Aspirin) blood-glucose meter #1 ea 11/19/19 09/07/22 Unknown Rx insulin aspart U-100 100 unit/mL 5 unit (0.05 mL) SUBCUT TID 30 09/26/21 09/07/22 09/06/22 Rx (3 mL) subcutaneous pen (Novolog days #4.5 mL Flexpen U-100 Insulin aspart) blood sugar diagnostic (Accu-Chek #100 ea 05/09/22 09/07/22 Unknown Rx Merced Plus test strips) metoprolol tartrate 100 mg tablet 100 mg PO BID 05/23/22 09/07/22 09/06/22 History multivitamin 1 tab PO QAM 05/23/22 09/07/22 09/06/22 History ropinirole 0.25 mg tablet 0.25 mg PO BEDTIME 05/23/22 09/07/22 09/06/22 History rosuvastatin 40 mg tablet 40 mg PO BEDTIME 05/23/22 09/07/22 09/06/22 History liraglutide 0.6 mg/0.1 mL (18 mg/3 1.2 mg SUBCUT DAILY 06/06/22 09/07/2208/15 History mL) subcutaneous pen injector (Victoza 3-Moris) ramipril 5 mg capsule 10 mg PO BEDTIME #60 caps 06/10/22 09/07/22 09/06/22 Rx hydrocodone 5 mg-acetaminophen 325 1 tab PO BID PRN pain 60 days #60 07/24/22 09/07/22 09/06/22 Rx mg tablet tabs insulin detemir U-100 100 unit/mL See Rx Instructions .Route 08/14/22 09/07/22 09/06/22 Rx (3 mL) subcutaneous pen (Levemir .COMPLEX #15 mL FlexTouch U-100 Insulin) pen needle, diabetic 32 gauge x ##100 08/20/22 09/07/22 Unknown Rx (TechLITE Pen Needle) Allergies Allergy/AdvReac Type Severity Reaction Status Date / Time gabapentin Allergy hallucinati Verified 07/28/22 11:22 ons Iodinated Contrast Media Allergy Unknown Verified 07/28/22 11:22 nifedipine [From Procardia] Allergy Unknown Verified 07/28/22 11:22 prochlorperazine Allergy Unknown Verified 07/28/22 11:22 [From Compazine] Current Medications Generic Name Dose Route Start Last Admin Trade Name Freq PRN Reason Stop Dose Admin Hydrocodone Bitart/Acetaminophen 1 tab 09/06/22 23:45 09/08/22 14:17 Hydrocodone-Acetaminophen 5-325 Mg Tablet PO 1 tab BID PRN Administration pain Aspirin 81 mg 09/07/22 21:00 09/07/22 20:02 Aspirin 81 Mg Ec Tablet PO 81 mg BEDTIME LIAT Administration Atorvastatin Calcium 80 mg 09/07/22 21:00 09/07/22 20:02 Atorvastatin 40 Mg Tablet PO 80 mg BEDTIME LIAT Administration Enoxaparin Sodium 60 mg 09/08/22 08:30 09/08/22 11:42 Enoxaparin 60 Mg/0.6 Ml Syringe SUBCUT 60 mg Q24H LIAT Administration Sodium Chloride 1,000 mls @ 50 mls/hr 09/06/22 22:00 09/08/22 14:11 Sodium Chloride 0.9% IV 50 mls/hr .Q20H LIAT Administration Metronidazole 500 mg in 100 mls @ 100 mls/hr 09/07/22 06:00 09/08/22 15:24 Flagyl Iv IV Infused Q8H [facility] Infusion Protocol Insulin Human Regular 250 unit 252.5 mls @ 0 mls/hr 09/07/22 06:15 09/07/22 19:00 / Sodium Chloride IV 0 unit/hr .Q0M LIAT 0 mls/hr Titration Protocol Per Protocol Ciprofloxacin/Dextrose 400 mg in 200 mls @ 200 mls/hr 09/08/22 07:00 09/08/22 07:26 Cipro IV Infused Q24H [facility] Infusion Protocol Insulin Glargine 70 unit 09/08/22 09:00 09/08/22 17:36 Insulin Glargine 100 Units/1 Ml SUBCUT Not Given BID [facility] Insulin Human Lispro 5 unit 09/07/22 17:00 09/08/22 17:39 Insulin Lispro 100 Unit/1 Ml SUBCUT 5 unit TIDAC [facility] Administration Insulin Human Lispro 0 unit 09/07/22 18:00 09/08/22 17:40 Insulin Lispro 100 Unit/1 Ml SUBCUT 6 unit WM&BEDTIME [facility] Administration Protocol Lisinopril 40 mg 09/08/22 03:30 09/08/22 03:41 Lisinopril 20 Mg Tablet PO 40 mg BEDTIME LIAT Administration Metoclopramide HCl 5 mg 09/07/22 00:45 09/08/22 15:21 Metoclopramide 5 Mg/Ml Sdv 2 Ml IVP 5 mg Q8H LIAT Administration Metoprolol Tartrate 100 mg 09/07/22 09:00 09/08/22 17:40 Metoprolol Tartrate 50 Mg Tablet PO 100 mg BID LIAT Administration Nitroglycerin 0.4 mg 09/07/22 22:33 09/08/22 07:46 Nitroglycerin 0.4 Mg Sublingual Tablet SUBLINGUAL 0.4 mg Q5M PRN Administration CHEST PAIN Ondansetron HCl 4 mg 09/06/22 22:57 09/08/22 17:09 Ondansetron 2 Mg/Ml Sdv 2 Ml IVP 4 mg Q8H PRN Administration vomiting, or N/V if npo Pantoprazole Sodium 40 mg 09/06/22 23:00 09/08/22 11:42 Pantoprazole 40 Mg Sdv IVP 40 mg Q12H LIAT Administration PFSH Acute PFSH: Medical History (Updated 09/07/22 @ 10:22 by Johan Byrne MD) Abdominal pain Acidosis, lactic Anxiety and depression ASHD (arteriosclerotic heart disease) Cataracts, bilateral Chest pain CKD (chronic kidney disease) Diabetes Diabetic ketoacidosis Diabetic neuropathy Diabetic peripheral neuropathy Fibromyalgia Gastroparesis Gram-positive bacteremia Hyperlipidemia Hypertension Insomnia Intractable abdominal pain Intractable vomiting with nausea Left renal stone Left ureteral calculus Leukocytosis Migraine Nausea and vomiting Odynophagia Pyelonephritis Pyuria Shingles Ureterolithiasis Urolithiasis Yeast vaginitis Surgical History H/O angioplasty H/O carpal tunnel repair H/O: hysterectomy History of cholecystectomy S/P ureteral stent placement Family History Mother , at age 65 Heart attack Father , at age 63 Heart attack Other Diabetes Hypertension Social History Smoking and tobacco status: current every day smoker Second hand smoke exposure: No Alcohol intake: never Adopted: No Caregiver/support person: Yes (spouse) Lives independently: Yes Household members: spouse Marital status: service: No Current occupational status: retired History of recent travel: No Current gender identity: Female Special vandana needs: No Agree to transfusion: Yes Vitals/I&O/Wt Last Vital Signs Temp 98 F 09/08/22 18:00 Pulse 106 H 09/08/22 18:00 Resp 24 H 09/08/22 18:00 BP 165/87 09/08/22 18:00 Pulse Ox 98 09/08/22 18:00 O2 Del Method 09/08/22 11:42 O2 Flow Rate 2 09/08/22 04:00 09/08/22 09/08/22 09/08/22 06:59 14:59 22:59 Intake Total 2278.666 / 2278.666 100 / 2378.666 Output Total 525 / 725 300 / 300 Balance -525 / -912.241 0872.666 / 100 / 8.666 Weight last 48 hrs Weight 177 lb 14.4 oz Physical Exam Narrative: GENERAL: Patient is alert, awake and oriented x3. [] NECK: No jugular vein distension. [] HEENT: No cyanosis. No icterus. No pallor. [] HEART: Regular S1 and S2. No murmur, rub or gallop. [] LUNGS: Clear to auscultate bilaterally. [] ABDOMEN: Soft, nontender and nondistended. Positive bowel sounds. No guarding, rebound or tenderness. [] CENTRAL NERVOUS SYSTEM: Grossly nonfocal. [] EXTREMITIES: Lower extremities with 1+ edema bilaterally. Pulses palpable in the lower extremities, both dorsalis pedis and posterior tibial. [] Data 09/08/22 05:50 09/08/22 05:50 A&P Assessment and plan (1) DKA (diabetic ketoacidosis): (2) Hypertension: (3) NSTEMI (non-ST elevated myocardial infarction): (4) Abdominal pain: (5) Diabetes: (6) Gastroparesis: (7) Hyperlipidemia: Qualifiers: Hyperlipidemia type: mixed hyperlipidemia Qualified Code(s): E78.2 - Mixed hyperlipidemia Plan Patient presented with abdominal discomfort symptoms. Has atypical chest disco mfort however troponin levels did go up. We will medically treated at this time. Once etiology of abdominal discomfort is clear, we can proceed with coronary angiogram. Continue aspirin. Continue anticoagulation Echocardiogram performed shows mildly reduced LV systolic function. We will also obtain records from prior PCI. Thank you for involving us with care of this patient. We will continue to follow. Please call with questions. Consult Attestations Medical Necessity Statement: Care expected to cross 2 midnights. 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
--- NOTE | 2022-09-08 20:18 | PM.PN ---
Subjective Subjective: Patient is chest pain free at this time. Her WBC count went up significantly and is 21k. Vitals/I&O/Wt Last Vital Signs Temp 98 F 09/08/22 18:00 Pulse 106 H 09/08/22 18:00 Resp 24 H 09/08/22 18:00 BP 165/87 09/08/22 18:00 Pulse Ox 98 09/08/22 18:00 O2 Del Method 09/08/22 11:42 O2 Flow Rate 2 09/08/22 04:00 09/08/22 09/08/22 09/08/22 06:59 14:59 22:59 Intake Total 2278.666 / 2278.666 100 / 2378.666 Output Total 525 / 725 300 / 300 Balance -525 / -162.262 4501.666 / 100 / 8.666 Weight last 48 hrs Weight 177 lb 14.4 oz Physical Exam Narrative: GENERAL: Patient is alert, awake and oriented x3. [] NECK: No jugular vein distension. [] HEENT: No cyanosis. No icterus. No pallor. [] HEART: Regular S1 and S2. No murmur, rub or gallop. [] LUNGS: Clear to auscultate bilaterally. [] ABDOMEN: Soft, nontender and nondistended. Positive bowel sounds. No guarding, rebound or tenderness. [] CENTRAL NERVOUS SYSTEM: Grossly nonfocal. [] EXTREMITIES: Lower extremities with 1+ edema bilaterally. Pulses palpable in the lower extremities, both dorsalis pedis and posterior tibial. [] Data 09/08/22 05:50 09/08/22 05:50 A&P Assessment and plan (1) DKA (diabetic ketoacidosis): (2) Hypertension: (3) NSTEMI (non-ST elevated myocardial infarction): (4) Abdominal pain: (5) Diabetes: (6) Gastroparesis: (7) Hyperlipidemia: Qualifiers: Hyperlipidemia type: mixed hyperlipidemia Qualified Code(s): E78.2 - Mixed hyperlipidemia Plan Patient treated for DKA. Also on antibiotics. WBC count went up some very significantly today. Continue medical therapy. Continue aspirin. Continue anticoagulation Echocardiogram performed shows mildly reduced LV systolic function. We will also obtain records from prior PCI. Thank you for involving us with care of this patient. We will continue to follow. Please call with questions. Attestations Medical Necessity Statement*: Care expected to cross 2midnights. Coding Level of Care Code Acute Emergency Room Physician for g Fwd Diagnoses DKA (diabetic ketoacidosis) E11.10 Hypertension I10 NSTEMI (non-ST elevated myocardial infarction) I21.4 Abdominal pain R10.9 Diabetes E11.9 Gastroparesis K31.84 Hyperlipidemia E78.2 Hyperlipidemia type: mixed hyperlipidemia
[2022-09-08] MEDS: atorvastatin 40 mg Tablet 80 MG PO (20:38)
[2022-09-08] MEDS: aspirin 81 mg EC Tablet PO (20:38)
[2022-09-08 20:50] LABS: Glucose Point of Care 140 mg/dL (70-110)
--- NOTE | 2022-09-08 22:00 | PC.NURSE ---
Pain Patient complaining of pain in bilateral legs due to neuropathy with a rating of 7 on a 1-[address] Ulrich contacted and verbal order received to give PRN Hydrocodone 5-325 PO dose now. See MAR for details.
[2022-09-09] VITALS (49 sets, daily range): BP systolic 120–178; BP diastolic 65–107; PULSE 77–132; TEMP 36.8–37.6; O2SAT 88–100
[2022-09-09] MEDS: metoclopramide 5 mg/mL SDV 2 mL IVP ×4 (01:17→18:08)
[2022-09-09 05:43] LABS: Glucose Point of Care 194 mg/dL (70-110)
[2022-09-09 05:47] LABS: Basophils % 0.1 %; Eosinophils % 0.1 %; Hematocrit 35.1 % (37.0-47.0); Lymphocytes # 1.8 10^3/uL (0.8-4.8); Mean Corpuscular HGB Conc 31.3 g/dL (30.0-36.0); Mean Corpuscular Hemoglobin 30.1 pg (28.0-34.0); Mean Corpuscular Volume 95.9 fl (81-99); Monocytes # 1.1 10^3/uL (0.2-0.9); Monocytes % 6.4 %; Neutrophils # 13.66 10^3/uL (1.8-7.7); Neutrophils % 81.9 %; Nucleated Red Blood Cells % 0 %; Platelet Count 251 10^3/cmm (130-400); Red Blood Count 3.66 10^6/uL (4.1-5.3); Red Cell Distribution Width 14.6 % (12.1-15.1); White Blood Count 16.7 10^3/uL (4.0-10.0)
[2022-09-09 06:08] LABS: Albumin Level 3.3 g/dL (3.5-5.2); Blood Urea Nitrogen 15 mg/dL (8-23); Calcium 8.3 mg/dL (8.5-10.5); Carbon Dioxide 23 mmol/L (22-29); Chloride 98 mmol/L (98-107); Glucose 183 mg/dL (65-115); Magnesium 1.7 mg/dL (1.7-2.3); Phosphorus 1.9 mg/dL (2.5-4.5); Sodium 133 mmol/L (136-145)
--- NOTE | 2022-09-09 06:26 | ECG_ITS ---
[facility] Test Date: 2022-09-09 Pat Name: Evelyn Farley Department: Room: ICU03 Gender: Female Inset Cutter: : 1945 Requested By: Rylee Ulrich Order Number: [id number] Beverley MD: Dhruv Clement M.D. Measurements Intervals [place] Rate: 117 P: 82 TN: 143 QRS: 41 QRSD: 131 T: 137 QT: 359 QTc: 502 Interpretive Statements SINUS TACHYCARDIA WITH OCCASIONAL SUPRAVENTRICULAR PREMATURE COMPLEXES LEFT BUNDLE BRANCH BLOCK [120+ ms QRS DURATION, 80+ ms Q/S IN V1/V2, 85+ ms R IN I/aVL/V5/V6] INTERPRETATION BASED ON A DEFAULT AGE OF 40 YEARS Compared to ECG 09/08/2022 05:48:23 Ventricular premature complex(es) no longer present Electronically Signed On 09-11-2022 0:02:08 BLOCK STACKER by Dhruv Clement M.D. [id number]
[2022-09-09] MEDS: ciprofloxacin 400 MG/200 ML PREMIX 200 MG IV ×2 (06:29→18:05)
[2022-09-09] MEDS: metroNIDAZOLE IV 500 MG/100 ML PREMIX 100 MG IV ×3 (06:29→21:36)
--- NOTE | 2022-09-09 07:09 | PC.NURSE ---
EKG Patient's HR increased into the mid 150s, sinus tach. Upon assessment, patient states she doesn't feel right and that it feels like her blood sugar is low. Physically, patient appears short of breath while moving arms back and forth. Dr. Ulrich on the unit, order received for an EKg. Following the EKG, patient's HR decreased back down to about 110-120.
[2022-09-09] MEDS: potassium chloride ER 20 mEq Tablet 40 MEQ PO (08:30)
[2022-09-09] MEDS: enoxaparin 60 mg/0.6 mL Syringe SUBCUT (08:30)
[2022-09-09] MEDS: metoprolol tartrate 50 mg Tablet 100 MG PO ×2 (08:30→18:05)
[2022-09-09] MEDS: HYDROcodone-acetaminophen 5-325 mg Tablet 1 TAB PO ×2 (08:30→21:32)
[2022-09-09] MEDS: insulin lispro 100 unit/1 mL SUBCUT ×5 (08:30→21:34)
--- NOTE | 2022-09-09 09:49 | PM.PN ---
Subjective Subjective: Patient denies chest pain, shortness of breath, fevers or chills. He reports he does not know what his prior ejection fraction was. He reportedly had another run of MYFX overnight. 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
--- NOTE | 2022-09-09 10:20 | PC.SOCIAL ---
IMM update IMM updated with patient and family at bedside. Verbalized an understanding. Copy Pg 2 provided. Initialled, dated, timed, and placed in chart.
[2022-09-09] MEDS: insulin glargine 100 units/1 mL 25 UNIT SUBCUT ×2 (11:11→21:28)
[2022-09-09] MEDS: pantoprazole 40 mg SDV IVP (11:46)
[2022-09-09] MEDS: ondansetron 2 mg/ML SDV 2 mL 4 MG IVP (11:46)
[2022-09-09 11:51] LABS: Glucose Point of Care 221 mg/dL (70-110)
--- NOTE | 2022-09-09 13:43 | P.PN_ITS ---
Subjective Subjective: Patient reports abdominal and chest pain have resolved. Reports oral intake is improving. Denies fevers, chills, chest pain or shortness of breath. Later in afternoon, patient experiencing some abdominal cramping. Medications: Reviewed: Yes Vitals/I&O/Wt Last Vital Signs Temp 98.2 F 09/09/22 12:00 Pulse 86 09/09/22 12:00 Resp 24 H 09/08/22 18:00 BP 134/65 09/09/22 12:00 Pulse Ox 94 09/09/22 12:00 O2 Del Method 09/09/22 12:00 O2 Flow Rate 2 09/09/22 04:00 09/08/22 09/09/22 09/09/22 22:59 06:59 14:59 Intake Total 1025 / 3303.666 100 / 3403.666 707.148 / 707.148 Balance 1025 / 3003.666 100 / 3103.666 707.148 / 707.148 Weight last 48 hrs Weight 60.895 kg Weight 80.694 kg Physical Exam Narrative: General: Patient is awake.?Appears fatigued.? Head:? Normocephalic. Atraumatic. Neck: No JVD. Cardiovascular: No gallops. No murmurs. No peripheral edema. Lungs: Clear to auscultation, no use of accessory muscles, no crackles or wheezes. Skin: No jaundice. No rashes. Abdomen: Non-tender. Not distended.? Bowel sounds are present. Genito Urinary: Genital exam not performed since complaints not related. Rectal: Rectal exam not performed since no symptoms indicated blood loss. Extremities: No cyanosis or clubbing. Musculoskeletal: No swollen or erythematous joints. Neurological: Moves all 4 extremities. No myoclonus. 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 DKA has resolved Continue Lantus 20 units BID (home dose 70 units BID) Continue scheduled meal time Lispro Sliding scale insulin correction Hypoglycemia protocol (2) Colitis: With sepsis Leukocytosis is improving with treatment Discontinue IV fluids Encourage oral intake Continue ciprofloxacin Continue metronidazole (3) NSTEMI (non-ST elevated myocardial infarction): NSTEMI versus acute myocardial injury Echo w/ borderline EF 45-50%, mild to moderate hypokinesis of apical wall, grade 1 diastolic dysfunction Cardiology following Continuous telemetry monitoring Continue aspirin Continue Plavix Continue high intensity statin Continue therapeutic Lovenox Deferring ischemic work up to cardiology (4) Hypertension: Continue metoprolol Continue lisinopril (5) Gastroparesis: Suspected given long history of diabetes Would benefit from outpatient gastric emptying study Continue Reglan (6) Hypokalemia: Replace potassium (7) Hyperlipidemia: Continue high intensity statin Qualifiers: Hyperlipidemia type: mixed hyperlipidemia Qualified Code(s): E78.2 - Mixed hyperlipidemia (8) Hypophosphatemia: Replace phos Plan DVT ppx: Lovenox Code status: Full Code Attestations 2 Medical Necessity Statement*: Patient requires ongoing hospitalization for electrolyte monitoring, telemetry monitoring, cardiology evaluation, and supportive care. Coding Level of Care Code Acute Spring Tacker for [facility] Fwd Diagnoses Diabetes E11.9 Colitis K52.9 NSTEMI (non-ST elevated myocardial infarction) I21.4 Hypertension I10 Gastroparesis K31.84 Hypokalemia E87.6 Hyperlipidemia E78.2 Hyperlipidemia type: mixed hyperlipidemia Hypophosphatemia E83.39
[2022-09-09 14:29] LABS: Lactate (Lactic Acid level) 1.3 mmol/L (0.5-2.2)
--- NOTE | 2022-09-09 14:49 | PM.PN ---
Subjective Subjective: Patient has on and off abdominal pain episodes. Vitals/I&O/Wt Last Vital Signs Temp 98.2 F 09/09/22 12:00 Pulse 86 09/09/22 12:00 Resp 24 H 09/08/22 18:00 BP 134/65 09/09/22 12:00 Pulse Ox 94 09/09/22 12:00 O2 Del Method 09/09/22 12:00 O2 Flow Rate 2 09/09/22 04:00 09/08/22 09/09/22 09/09/22 22:59 06:59 14:59 Intake Total 1025 / 3303.666 100 / 3403.666 707.148 / 707.148 Balance 1025 / 3003.666 100 / 3103.666 707.148 / 707.148 Weight last 48 hrs Weight 134 lb 4 oz Weight 177 lb 14.4 oz Physical Exam Narrative: GENERAL: Patient is alert, awake and oriented x3. [] NECK: No jugular vein distension. [] HEENT: No cyanosis. No icterus. No pallor. [] HEART: Regular S1 and S2. No murmur, rub or gallop. [] LUNGS: Clear to auscultate bilaterally. [] ABDOMEN: Soft, nontender and nondistended. Positive bowel sounds. No guarding, rebound or tenderness. [] CENTRAL NERVOUS SYSTEM: Grossly nonfocal. [] EXTREMITIES: Lower extremities with 1+ edema bilaterally. Pulses palpable in the lower extremities, both dorsalis pedis and posterior tibial. [] Data 09/09/22 04:45 09/09/22 04:45 A&P Assessment and plan (1) DKA (diabetic ketoacidosis): (2) Hypertension: (3) NSTEMI (non-ST elevated myocardial infarction): (4) Abdominal pain: (5) Diabetes: (6) Gastroparesis: (7) Hyperlipidemia: Qualifiers: Hyperlipidemia type: mixed hyperlipidemia Qualified Code(s): E78.2 - Mixed hyperlipidemia Plan Patient treated for DKA. WBC count improving Continue aspirin. Continue anticoagulation Echocardiogram performed shows mildly reduced LV systolic function. We will also obtain records from prior PCI. If labs keep improving, possible Left heart cath tomorrow Thank you for involving us with care of this patient. We will continue to follow. Please call with questions. Attestations Medical Necessity Statement*: Care expected to cross 2 midnights. Coding Level of Care Code Acute Pipe Production Worker for g Fwd Diagnoses DKA (diabetic ketoacidosis) E11.10 Hypertension I10 NSTEMI (non-ST elevated myocardial infarction) I21.4 Abdominal pain R10.9 Diabetes E11.9 Gastroparesis K31.84 Hyperlipidemia E78.2 Hyperlipidemia type: mixed hyperlipidemia
[2022-09-09 17:50] LABS: Glucose Point of Care 139 mg/dL (70-110)
[2022-09-09 21:22] LABS: Glucose Point of Care 244 mg/dL (70-110)
[2022-09-09] MEDS: enoxaparin 80 mg/0.8 mL Syringe SUBCUT (21:28)
[2022-09-09] MEDS: aspirin 81 mg EC Tablet PO (21:30)
[2022-09-09] MEDS: lisinopril 20 mg Tablet 40 MG PO (21:31)
[2022-09-09] MEDS: atorvastatin 40 mg Tablet 80 MG PO (21:31)
[2022-09-10] VITALS (47 sets, daily range): BP systolic 109–181; BP diastolic 57–125; PULSE 76–114; RESP 16–22; TEMP 36.8–37.3; O2SAT 93–100
[2022-09-10] MEDS: metoclopramide 5 mg/mL SDV 2 mL IVP ×3 (00:14→16:38)
[2022-09-10] MEDS: pantoprazole 40 mg SDV IVP ×2 (00:14→22:06)
[2022-09-10] MEDS: ondansetron 2 mg/ML SDV 2 mL 4 MG IVP (02:30)
[2022-09-10 03:55] LABS: Basophils % 0.1 %; Eosinophils # 0.1 10^3/uL (0.0-0.8); Eosinophils % 0.6 %; Hematocrit 34.2 % (37.0-47.0); Hemoglobin 10.7 g/dL (11.5-15.3); Lymphocytes % 22.5 %; Mean Corpuscular HGB Conc 31.3 g/dL (30.0-36.0); Mean Corpuscular Volume 95.8 fl (81-99); Mean Platelet Volume 11.3 fL (7.4-10.4); Monocytes # 0.6 10^3/uL (0.2-0.9); Monocytes % 6.7 %; Neutrophils # 6.12 10^3/uL (1.8-7.7); Neutrophils % 69.8 %; Nucleated Red Blood Cells % 0 %; Platelet Count 244 10^3/cmm (130-400); Red Blood Count 3.57 10^6/uL (4.1-5.3); Red Cell Distribution Width 14.3 % (12.1-15.1); White Blood Count 8.8 10^3/uL (4.0-10.0)
--- NOTE | 2022-09-10 05:28 | ECG_ITS ---
[facility] Test Date: 2022-09-10 Pat Name: Evelyn Farley Department: Room: ICU03 Gender: Female Homicide Squad Sergeant: : 1945 Requested By: Rylee Ulrich Order Number: [id number] Beverley MD: Dhruv Clement M.D. Measurements Intervals [place] Rate: 100 P: 73 [place]: 127 QRS: 15 QRSD: 129 T: 132 QT: 390 QTc: 503 Interpretive Statements SINUS TACHYCARDIA POSSIBLE ANTERIOR MYOCARDIAL INFARCTION , OF INDETERMINATE AGE [30 ms Q WAVE IN V3/V4, OR R < 0.2 mV IN V4] Nonspecific T wave changes INTERPRETATION BASED ON A DEFAULT AGE OF 40 YEARS Compared to ECG 09/09/2022 05:36:50 Myocardial infarct finding now present Left bundle-branch block no longer present Electronically Signed On 09-10-2022 14:22:02 [employer]LE[employer] TERMINAL PLANT OPERATOR by Dhruv Clement M.D. [id number]
[2022-09-10] MEDS: metroNIDAZOLE IV 500 MG/100 ML PREMIX 100 MG IV ×3 (05:38→21:15)
[2022-09-10] MEDS: nitroglycerin 1 gm/inch oint Pkt 1 INCH TOPICAL (05:42)
--- NOTE | 2022-09-10 05:45 | PC.NURSE ---
Pt experiencing sudden onset chest tightness . HR 117, SBP in the 180's. Dr. Ulrich notified. New order to obtain stat EKG and nitropaste 1inch on the chest. Pt states that she is not in pain.
[2022-09-10 05:55] LABS: Albumin Level 3.4 g/dL (3.5-5.2); Anion Gap 14.2 (5-19); Blood Urea Nitrogen 14 mg/dL (8-23); Calcium 8.6 mg/dL (8.5-10.5); Carbon Dioxide 26 mmol/L (22-29); Chloride 99 mmol/L (98-107); Glucose 121 mg/dL (65-115); Magnesium 1.7 mg/dL (1.7-2.3); Phosphorus 2.1 mg/dL (2.5-4.5); Potassium 3.2 mmol/L (3.5-5.1); Sodium 136 mmol/L (136-145)
[2022-09-10] MEDS: insulin lispro 100 unit/1 mL SUBCUT ×4 (06:05→20:49)
[2022-09-10] MEDS: ciprofloxacin 400 MG/200 ML PREMIX 200 MG IV ×2 (06:06→17:33)
[2022-09-10] MEDS: metoprolol tartrate 50 mg Tablet 100 MG PO ×2 (07:49→17:33)
[2022-09-10] MEDS: enoxaparin 80 mg/0.8 mL Syringe SUBCUT (07:49)
[2022-09-10] MEDS: insulin glargine 100 units/1 mL 25 UNIT SUBCUT ×2 (07:49→20:49)
[2022-09-10] MEDS: HYDROcodone-acetaminophen 5-325 mg Tablet 1 TAB PO (08:12)
[2022-09-10] MEDS: potassium chloride ER 20 mEq Tablet 40 MEQ PO (08:15)
--- NOTE | 2022-09-10 09:36 | XACV_ITS ---
Exam Room: [facility] Ht: 157 cm Wt: 60 kg BSA: 1.63 m2 Gender: Female : 1945 Exam Priority: Routine Procedure(s): Procedure Description: Diagnostic procedure Procedure Description: PCI procedure Procedure Description: Drug Eluting Coronary Stent Diagnostic Cath Status: Urgent Diagnostic Findings * Circumflex is a large dominant vessel. Distal left circumflex/L PDA has severe 90% stenosis.. * Right Coronary Artery is small sized, nondominant vessel that has prior stents with 60 to 70% diffuse in-stent restenosis . * Left Main has no disease. * Mid Left Anterior Descending: significant 80% stenosis, DESIREE: 3 flow. * Left Posterior Descending Artery: severe 90% stenosis, DESIREE: 3 flow. * Coronary angiography shows left dominance. PCI Status: Elective PCI Indication: NSTE - ACS Interventional Findings * PROCEDURE DETAIL: We engaged left main artery with XB 3.0 guide catheter. IV heparin was administered to maintain ACT above 250 S. 0.014 run-through guidewire was used to cross mid LAD stenosis and was put at the distal vessel. We predilated the lesion with a 2.5 x 12 mm semicompliant balloon. We then placed 2.75 x 12 mm resolute Yessica drug-eluting stent. At this time final angiogram was performed that showed excellent stent expansion, no residual stenosis and DESIREE-3 flow. Guidewire was removed. It was then advanced into the distal left circumflex artery/left PDA. We performed balloon angioplasty with 2.25 x 12 mm semicompliant balloon. As this was not supplying a large area, we did not place a stent. Final angiogram showed excellent angiographic result and flow. Guidewire and guide catheter were removed and patient left the Integrity Analyst in a stable condition.. * Mid Left Anterior Descendin% stenosis treated with a AB TREK 2.50X12 RX BALLOON, and MDT R YESSICA 2.75X12 JALEN. 0% residual stenosis, DESIREE: 3 flow. Conclusions 1. Severe mid LAD stenosis status post successful revascularization with JALEN x1. Severe distal left circumflex/L PDA stenosis s/p successful revascularization with balloon angioplasty. Stent not placed secondary to small size of the vessel.. 2. Mid Left Anterior Descending was treated with a Balloon, and Drug Eluting Stent. Recommendations * Transferred back to ICU. * Aspirin and Plavix for at least 1 year. * High intensity statin therapy. * Outpatient cardiology follow-up in 4-week. Interventional RX Recommendation: PCI w/o planned CABG Diagnostic RX Recommendation: PCI w/o planned CABG Anticoagulation: Heparin Pressures Phase:Rest AO : 98 / 71 ( 84 ) @ 11:03:00 AM 121 / 74 ( 96 ) @ 11:08:00 AM 133 / 80 ( 105 ) @ 11:15:00 AM 118 / 70 ( 92 ) @ 11:34:00 AM Clinical Evaluation EBL: 5mL-10mL Procedural Details Procedure Consent Obtained. Admit Source: In Patient. Pre-Procedure Time Out. Identified patient by full name and date of as verbalized by the patient/guarantor. Does the consent match the physician's order: Yes. Accurate & Complete Informed Consent: Yes. Inpatient/Outpatient History & Physical on Chart: Yes. If H&P is completed, is and addenduem needed: No; If yes, is the addendum complete: N/A. Visualize and Verify Site with Patient/Guarantor: N/A. Relevant Radiology Images available: N/A. The risks, benefits, and alternatives of sedation and/or procedure were discussed by physician. The patient agrees to continue. Procedure started. Physician notified. Baseline sample Acquired. HR: 71 BPM. PERRLA. Strong, equal hand crayon sorting machine feeder bilaterally. Lungs clear x 5 lobes. IV Site on Arrival: 22 gauge in the right forearm. IV Fluids: 0.9% NaCl at KVO. 0 mL infused prior to wood and wood products labourer. Pre Procedural Pulses: bilateral radial was 2+. Pre Procedural Pulses: bilateral dorsalis pedis was 1+. Oxygen started at 2liters/min via nasal canula. [facility] Clinical Fraility Score: 4: Vulnerable. Integrity Analyst Indications: ACS > 24 hours. Chest Pain Symptom Assessment: Atypical Angina. Cardiovascular Instability: No. Correct patient, site and procedure confirmed by cath team. Current diagnosis: NSTEMI. Physician arrived. right radial was prepped with chloroprep then draped in the usual sterile fashion. right groin was prepped with chloroprep then draped in the usual sterile fashion. Physician scrubbed in. Immediate Pre-Procedure Time Out. Correct Patient: Yes; Correct Procedure: Yes; Correct Site: Yes; Correct Patient Position: Yes; Correct Supplies: Yes; Dried Flammable Prep: Yes; Blood Products Available: N/A;. Lidocaine 1% infiltrated to the right radial. Arterial access obtained. A 5 spanish TIG catheter in over wire. Multiple views taken of left coronary artery. no heparin at this time due to last lovenox dose. Catheter redirected to the RCA. Multiple views taken of right coronary artery. Catheter removed over the exchange wire. 6 spanish XB 3 guide catheter was inserted over the wire. Runthrough guidewire was advanced through the guide catheter to lesion in the mid LAD. Inflation number : 1 A AB TREK 2.50X12 RX BALLOON was prepped and advanced across the Mid LAD , then inflated to 8 YANG for 0:20 seconds. Results checked. Balloon out. Stent balloon out over wire. guideliner inserted over runthrough wire. Inflation Number : 2 A TALHA R YESSICA 2.75X12 JALEN -Lot Number# [id number] exp date- 06/09/2024 was prepped and advanced across the Mid LAD. The stent was deployed at 12 YANG for 0:26 seconds. Wire out. Results checked. guideliner out over runthrough wire. Stent balloon and wire out. runthrough redirected down the circumflex. unable to cross lesion. A new Runthrough guidewire was advanced through the guide catheter to lesion in the distal Circ, as a cristhian wire. Guidewire advanced across lesion. runthrough wire #1 removed. Inflation number : 1 A AB TREK 2.25X12 RX BALLOON was prepped and advanced across the Dist CX , then inflated to 6 YANG for 0:21 seconds. Inflation number: 2 The AB TREK 2.25X12 RX BALLOON was reinflated across the Dist CX, to 6 YANG for 0:15 seconds. Balloon out. Results checked. runthrough wire out. catheter and wire out. A TR Band was successful obtaining hemostatsis at the Right Radial artery insertion site. Post Procedure: Pulses reassessed and unchanged. PERRLA. Strong, equal hand crayon sorting machine feeder bilaterally. No VTE prophylaxis required. Medication's Wasted: Lidocaine 1% = 3 mL. Medication's Wasted: Nitro = 49.8 mg. Medication's Wasted: Heparin = 1000 units. Total IV fluids: 100 mL. PCI Indication: CAD. Post-op diagnosis: post PCI of Mid LAD, Balloon of distal Circumfex. Complications: none. Estimated blood loss: 5mL-10mL. Responsiveness - Normal response to verbal stimuli; alert and oriented, PERRLA. Airway - Unaffected, no intervention required; spontaneous ventilation. Circulation: W/N/L, pulses unchanged. Nausea/Vomiting: No. Procedure completed. Patient transferred by bed to ICU. Vital chart was stopped. Access Site Site: Right Radial artery Sheath Size: 6 Fr Hemostasis Method: TR Band Hemostasis Success: Successful Procedure Medications Start: 10:52 AM Stop: 10:52 AM Medication: Benadryl Amount: 50 mg Route: I.V. Start: 10:54 AM Stop: 10:54 AM Medication: Solu-Medrol (methylprednisolone) Amount: 125 mg Route: I.V. Start: 10:57 AM Stop: 10:57 AM Medication: Versed Amount: 1 mg Route: I.V. Start: 10:57 AM Stop: 10:57 AM Medication: Fentanyl Amount: 50 mcg Route: I.V. Start: 10:58 AM Stop: 10:58 AM Medication: Nitrogylcerin Amount: 200 mcg Route: I.A. Start: 11:24 AM Stop: 11:24 AM Medication: Versed Amount: 1 mg Route: I.V. Start: 11:24 AM Stop: 11:24 AM Medication: Fentanyl Amount: 50 mcg Route: I.V. Start: 11:24 AM Stop: 11:24 AM Medication: Nitrogylcerin Amount: 200 mcg Route: I.C. Start: 11:39 AM Stop: 11:39 AM Medication: Plavix Amount: 600 mg Route: P.O. I, the attending physician, have reviewed and verified all procedure medications. Yes, all medications given per verbal order History/Risk Factors Hypertension: Yes Dyslipidemia: Yes Peripheral Arterial Disease (PAD): No Myocardial Infarction (KS): No Obesity: No Tobacco Use: Current/Recent(w/in 1 year) Prior Interventions PCI: No CABG: No Valve Surgery: No Report Signatures Finalized by Sandip Sweet MD on 09/19/2022 11:37 AM
--- NOTE | 2022-09-10 10:00 | PC.CHAP ---
Pastoral Care Encounter/Spiritual Assessment Type of Contact [] Declined facility practice specialist visit [] Patient/Family/Request visit [] Outpatient visit [] Follow-up visit [] Physician referral [] Code/Alert [x] Routine visit [] Staff referral [] Actively dying [x] Patient sleeping [] Family support [] [] Out of room [] Palliative care [] [x] Receiving care in room [] Pre-surgical visit [] Trauma [] Long length of stay [x] ICU visit [] Other: Relational/Emotional Strength [] Patient feels connected with others/family/visitors/staff [] Distress [] Loneliness/isolation [] Abandonment Spirituality of Patient [] Person of Audrey [] Attends Catholic of their Audrey [] Believes in Prayer [] Reads Bible or Confucianist materials [] There are Spiritual issues to be addressed Thoroughbred Horse Farm Manager Interventions [x] Prayer [] Active listening [] Non-anxious presence [] Spiritual/emotional support [] Crisis/trauma care [] Spiritual counseling [] Bereavement support [] Provided bereavement packet [] Provided Bible/devotional materials [] Provided toy/stuffed animal, coloring book to patient or family member [] Provided Communion [] Anointing/[place] [] Salvation [x] Completed spiritual assessment [] Other: Impact on Illness or Injury [] Angry [] Fearful [] Anxious [] Often cries [] Exhaustion [] Unable to work [] Unable to attend hindu [] Unable to walk/stand [] Unable to read [] Unable to drive [] Unable to eat/drink [] Unable to sleep [] Unable to be with family [] Patient intubated [] Other: Summary Time spent with patient
--- NOTE | 2022-09-10 10:53 | W.PM.OPSUD ---
Surgery/Procedure H&P Update DATE OF PROCEDURE: September 10, 2022 DATE H&P PERFORMED: 09/08/22 H&P UPDATE INFORMATION: I have reviewed H&P completed within last 30 days, I have examined patient prior to procedure and No changes to prior documentation PREOP DIAGNOSIS: NSTEMI PRIMARY INDICATION FOR PROCEDURE: NSTEMI PLANNED PROCEDURE: Left heart cath with possible percutaneous coronary intervention PATIENT REASSESSED PRIOR TO SEDATION, WITH NO CHANGE NOTED: Yes PHYSICAL EXAM: alert, oriented x 3, clear to auscultation bilaterally and regular rate & rhythm AIRWAY EVAL/ANESTHESIA PLAN: normal airway, ASA IV, Local Anesthesia, Risks, benefits & alternatives of sedation and/or procedure discussed and Patient agrees to continue as planned ADDITIONAL INFORMATION: Moderate sedation
--- NOTE | 2022-09-10 11:53 | P.PN_ITS ---
Subjective Subjective: Patient underwent coronary angiogram today. It showed severe mid LAD 80% stenosis. Underwent successful revascularization with JALEN x1. Also had distal left circumflex artery 95% stenosis which was treated with balloon angioplasty. Given smaller size of the vessel, stent was not placed. Vitals/I&O/Wt Last Vital Signs Temp 98.3 F 09/10/22 08:00 Pulse 104 H 09/10/22 08:00 Resp 22 H 09/10/22 01:58 BP 164/89 09/10/22 08:00 Pulse Ox 98 09/10/22 05:00 O2 Del Method 09/10/22 06:00 O2 Flow Rate 1 09/10/22 01:30 09/09/22 09/10/22 09/10/22 22:59 06:59 14:59 Intake Total 1600 / 2307.148 100 / 2407.148 200 / 200 Output Total 700 / 700 Balance 1600 / 2307.148 -600 / 1707.148 200 / 200 Weight last 48 hrs Weight 132 lb 11.2 oz Weight 134 lb 4 oz Physical Exam Narrative: GENERAL: Patient is alert, awake and oriented x3. [] NECK: No jugular vein distension. [] HEENT: No cyanosis. No icterus. No pallor. [] HEART: Regular S1 and S2. No murmur, rub or gallop. [] LUNGS: Clear to auscultate bilaterally. [] ABDOMEN: Soft, nontender and nondistended. Positive bowel sounds. No guarding, rebound or tenderness. [] CENTRAL NERVOUS SYSTEM: Grossly nonfocal. [] EXTREMITIES: Lower extremities with 1+ edema bilaterally. Pulses palpable in the lower extremities, both dorsalis pedis and posterior tibial. [] Data 09/10/22 02:42 09/10/22 05:24 A&P Assessment and plan (1) DKA (diabetic ketoacidosis): (2) Hypertension: (3) NSTEMI (non-ST elevated myocardial infarction): (4) Abdominal pain: (5) Diabetes: (6) Gastroparesis: (7) Hyperlipidemia: Qualifiers: Hyperlipidemia type: mixed hyperlipidemia Qualified Code(s): E78.2 - Mixed hyperlipidemia Plan Patient underwent successful revascularization of mid LAD with JALEN x1 and balloon angioplasty for distal left circumflex artery today Continue aspirin and Plavix for atleast 1 year Will need close monitoring of blood glucose levels as received solumedrol for pre-treatment of contrast allergy. Continue IV fluids. Monitor renal function Thank you for involving us with care of this patient. We will continue to follow. Please call with questions. Attestations Medical Necessity Statement*: Care expected to cross 2 midnights. Coding Level of Care Code Acute Loan Associate for g Fwd Diagnoses DKA (diabetic ketoacidosis) E11.10 Hypertension I10 NSTEMI (non-ST elevated myocardial infarction) I21.4 Abdominal pain R10.9 Diabetes E11.9 Gastroparesis K31.84 Hyperlipidemia E78.2 Hyperlipidemia type: mixed hyperlipidemia
--- NOTE | 2022-09-10 12:34 | PM.PN ---
Subjective Subjective: Patient was seen and examined this morning, s/p stent to mid LAD, and PTCA to distal LCx. Medications: Reviewed: Yes Medication Review Details: Generic Name Dose Route Start Last Admin Trade Name Freq PRN Reason Stop Dose Admin Hydrocodone Bitart /Acetaminophen 1 tab 09/06/22 23:45 09/10/22 08:12 Hydrocodone-Acet aminophen 5-325 Mg Tablet PO 1 tab BID PRN Administration pain Aspirin 81 mg 09/07/22 21:00 09/09/22 21:30 Aspirin 81 Mg Ec Tablet PO 81 mg BEDTIME LIAT Administration Atorvastatin Calci um 80 mg 09/07/22 21:00 09/09/22 21:31 Atorvastatin 40 Mg Tablet PO 80 mg BEDTIME LIAT Administration Metronidazole 500 mg in 100 mls @ 100 mls/hr 09/07/22 06:00 09/10/22 06:59 Flagyl Iv IV Infused Q8H LIAT Infusion Protocol Insulin Human Regu lar 250 unit 252.5 mls @ 0 mls /hr 09/07/22 06:15 09/09/22 08:46 / Sodium Chlorid e IV Infused .Q0M LIAT Titration Protocol Per Protocol Ciprofloxacin/Dext patel 400 mg in 200 mls @ 200 mls/hr 09/09/22 07:00 09/10/22 08:03 Cipro IV Infused Q12H LIAT Infusion Protocol Insulin Glargine 25 unit 09/09/22 10:10 09/10/22 07:49 Insulin Glargine 100 Units/1 Ml SUBCUT 25 unit BID@0800,2000 LIAT Administration Insulin Human Lisp ro 5 unit 09/07/22 17:00 09/10/22 06:05 Insulin Lispro 1 00 Unit/1 Ml SUBCUT 5 unit TIDAC LIAT Administration Insulin Human Lisp ro 0 unit 09/07/22 18:00 09/10/22 07:43 Insulin Lispro 1 00 Unit/1 Ml SUBCUT Not Given WM&BEDTIME LIAT Protocol Lisinopril 40 mg 09/08/22 03:30 09/09/22 21:31 Lisinopril 20 Mg Tablet PO 40 mg BEDTIME LIAT Administration Metoclopramide HCl 5 mg 09/07/22 00:45 09/10/22 07:47 Metoclopramide 5 Mg/Ml Sdv 2 Ml IVP 5 mg Q8H LIAT Administration Metoprolol Tartrat e 100 mg 09/07/22 09:00 09/10/22 07:49 Metoprolol Tartr ate 50 Mg Tablet PO 100 mg BID LIAT Administration Nitroglycerin 0.4 mg 09/07/22 22:33 09/08/22 07:46 Nitroglycerin 0. 4 Mg Sublingual Ta blet SUBLINGUAL 0.4 mg Q5M PRN Administration CHEST PAIN Ondansetron HCl 4 mg 09/06/22 22:57 09/10/22 02:30 Ondansetron 2 Mg /Ml Sdv 2 Ml IVP 4 mg Q8H PRN Administration vomiting, or N/V if npo Pantoprazole Sodiu m 40 mg 09/06/22 23:00 09/10/22 00:14 Pantoprazole 40 Mg Sdv IVP 40 mg Q12H LIAT Administration Vitals/I&O/Wt Last Vital Signs Temp 98.3 F 09/10/22 08:00 Pulse 85 09/10/22 12:00 Resp 22 H 09/10/22 01:58 BP 144/125 09/10/22 08:30 Pulse Ox 99 09/10/22 11:54 O2 Del Method 09/10/22 06:00 O2 Flow Rate 1 09/10/22 01:30 09/09/22 09/10/22 09/10/22 22:59 06:59 14:59 Intake Total 1600 / 2307.148 100 / 2407.148 200 / 200 Output Total 700 / 700 Balance 1600 / 2307.148 -600 / 1707.148 200 / 200 Weight last 48 hrs Weight 60.192 kg Weight 60.895 kg Physical Exam Const: COMMON NORMALS: patient oriented x3 Resp: COMMON NORMALS: clear to auscultation bilaterally EFFORT & INSPECTION: Yes symmetric chest movement AUSCULTATION: clear to auscultation bilaterally Cardio: COMMON NORMALS: regular rate, regular rhythm, S1 normal heart sound present, S2 normal heart sound present, No gallops present (Cardio), No murmurs present (Cardio), No rub (Cardio) and Peripheral pulses 2+ throughout RATE: regular rate RHYTHM: regular rhythm HEART SOUNDS: S1 normal heart sound present and S2 normal heart sound present PERIPHERAL PULSES: Peripheral pulses 2+ throughout GI: COMMON NORMALS: Normal to inspection, nondistended, normoactive bowel sounds present, Soft to palpation, non-tender, No hepatosplenomegaly present and no masses AUSCULTATION: Yes normoactive bowel sounds PALPATION: Yes Soft to palpation and Yes No hepatosplenomegaly present RECTAL EXAM: deferred Extremity: COMMON NORMALS: no clubbing, cyanosis or edema and no pedal edema Neuro: COMMON NORMALS: patient oriented x3 Data 09/10/22 02:42 09/10/22 05:24 A&P Assessment and plan (1) NSTEMI (non-ST elevated myocardial infarction): (2) Nausea and vomiting: (3) Hypertension: (4) Gastroparesis: (5) Abdominal pain: (6) Hyperlipidemia: Qualifiers: Hyperlipidemia type: mixed hyperlipidemia Qualified Code(s): E78.2 - Mixed hyperlipidemia (7) Diabetes: (8) Leukocytosis: Plan #NSTEMI #Abdominal pain possibly secondary to diabetic gastroparesis versus hiatal hernia or above #History of Briceño's esophagus, moderate hiatal hernia #Leukocytosis most likely secondary to stress response versus true infection #Hypertension. #Hyperlipidemia #Chronic constipation #Insulin-dependent diabetes mellitus -Admit to CSU -Started on aspirin, loaded with Plavix 300 then 75 mg thereafter daily, continue Nitropaste and monitor response, atorvastatin 80, metoprolol 100 twice daily, therapeutic Lovenox -It is possible that patient's chest pain is GI related however due to positive delta troponin, history of CAD status post PCI and 3 stents and her vague history there is suspicion of cardiac origin. ? Check lipid panel, hemoglobin A1c ? Check echo ? Cardiology consulted. We will check stat troponin and notify cardiology of the result. EKGs have been reviewed by them. Monitor patient on nitro drip for now. GI cocktail also ordered. ? We will check serial EKGs. Does have a history of left bundle branch block. ? Most recent EGD . See report ? Protonix 40 twice daily ? Reglan 5 mg 3 times daily ? Continue hydrocodone 5 3 times daily ? Moderate intensity insulin sliding scale ? Zofran as needed every 4 hours however would like to give Reglan before trying Zofran ? Continue Elavil 10 mg daily -We will continue to monitor patient off of antibiotics. Leukocytosis most likely due to stress response. ? check ct chest abd pelvis -We will order GI cocktail x1 and monitor response - Check urine drug screen. DNR/DNI. Family aware. Patient made this decision in presence of family. DVT prophylaxis: On therapeutic Lovenox Attestations Medical Necessity Statement*: Patient is still in hospital management of NSTEMI. Coding Level of Care Code Acute Customer Supply Chain Analyst for Melissa Fwfelicita Diagnoses NSTEMI (non-ST elevated myocardial infarction) I21.4 Nausea and vomiting R11.2 Hypertension I10 Gastroparesis K31.84 Abdominal pain R10.9 Hyperlipidemia E78.2 Hyperlipidemia type: mixed hyperlipidemia Diabetes E11.9 Leukocytosis D72.829
[2022-09-10 13:08] LABS: Glucose Point of Care 132 mg/dL (70-110)
[2022-09-10] MEDS: aspirin 325 mg Tablet PO (13:12)
[2022-09-10] MEDS: sodium chloride 0.9% 1,000 ML 100 ML IV ×2 (13:15→23:15)
--- NOTE | 2022-09-10 15:26 | ECG_ITS ---
[facility] Test Date: 2022-09-10 Pat Name: Evelyn Farley Department: Room: ICU03 Gender: Female Bundle Clerk: : 1945 Requested By: Davion Wolff Order Number: [id number] Beverley MD: Dhruv Clement M.D. Measurements Intervals [place] Rate: 113 P: 71 HI: 141 QRS: 18 QRSD: 123 T: 139 QT: 356 QTc: 489 Interpretive Statements SINUS TACHYCARDIA MODERATE INTRAVENTRICULAR CONDUCTION DELAY [105+ ms QRS DURATION, 80+ ms Q/S IN V1/V2, NO Q AND 60+ ms R IN I/aVL/V5/V6] NONSPECIFIC ST & T-WAVE ABNORMALITY INTERPRETATION BASED ON A DEFAULT AGE OF 40 YEARS Compared to ECG 09/10/2022 05:28:46 Intraventricular conduction delay now present Myocardial infarct finding no longer present T-wave abnormality still present Electronically Signed On 09-10-2022 17:52:20 SEASONAL DELIVERY DRIVER by Dhruv Clement M.D. [id number]
[2022-09-10] MEDS: nitroglycerin 0.4 mg sublingual Tablet SUBLINGUAL ×2 (15:28→15:46)
--- NOTE | 2022-09-10 15:47 | PC.NURSE ---
Patient update Pt reported chest pain at 6/10. EKG ordered and done, nitro x 2 given. Pt still reporting CP 5/10 and now with heavy arms and nausea. Dr Sweet has been contacted and is reviewing EKG and coming to see pt. Ordered to give 3rd dose of nitro if BP is stable.
--- NOTE | 2022-09-10 16:15 | ECG_ITS ---
[facility] Test Date: 2022-09-10 Pat Name: Evelyn Farley Department: Room: ICU03 Gender: Female Customs Compliance Manager: : 1945 Requested By: Sandip Sweet Order Number: [id number] Beverley MD: Dhruv Clement M.D. Measurements Intervals [place] Rate: 114 P: 68 NJ: 112 QRS: 9 QRSD: 123 T: 145 QT: 366 QTc: 506 Interpretive Statements SINUS TACHYCARDIA WITH SHORT NJ INTERVAL WITH OCCASIONAL SUPRAVENTRICULAR PREMATURE COMPLEXES MODERATE INTRAVENTRICULAR CONDUCTION DELAY [110+ ms QRS DURATION] MODERATE T-WAVE ABNORMALITY, CONSIDER LATERAL ISCHEMIA [-0.1+ mV T-WAVE IN I/aVL/V5/V6] Compared to ECG 09/10/2022 15:33:53 Short NJ interval now present Possible ischemia now present T-wave abnormality still present Electronically Signed On 09-11-2022 0:14:39 CRAS by Dhruv Clement M.D. [id number]
[2022-09-10] MEDS: morphine 4 mg/mL SDV 1 mL 2 MG IVP ×3 (16:38→22:06)
[2022-09-10] MEDS: nitroglycerin drip 50 MG/250 ML PREMIX IV (16:39)
[2022-09-10 17:27] LABS: Glucose Point of Care 396 mg/dL (70-110)
--- NOTE | 2022-09-10 20:30 | PC.NURSE ---
PT HAS HAD A DECENT SHIFT. PT WENT TO INVERTEBRATE PALEONTOLOGIST THIS MORNING. PT ARRIVED BACK TO THE UNIT AT AROUND 1200 NOON. TR BAND REMOVED AT 1720. PT REPORTS FEELING BETTER AFTER THE PROCEDURE. AT AROUND 15:45 PT STARTED COMPLAINING OF CHEST PAIN. THIS NURSE WAS IN THE MIDDLE OF A PROCEDURE WITH ANOTHER PT. CHARGE NURSE ALFREDA ATTENDED TO THIS PT, CALLED PHYSICIAN, AND FOLLOWED THROUGH WITH NEW ORDERS. SEE OTHER NURSES NOTE FOR FURTHER INFORMATION ON THIS EVENT. DR SULLIVAN DOWN TO SEE PT SHORTLY AFTER BEING NOTIFIED. THIS NURSE IN WITH PT AND PHYSICIAN. PTS CHEST PAIN REPORTED TO BE BETTER. AN ORDER FOR ONE TIME DOSE OF MORPHINE WAS GIVEN WELL TO START A NITRO DRIP. SEE MAR FOR FURTHER DOCUMENTATION ON MORPHINE AND NITRO ADMINISTRATION. AFTER MEDICATION ADMINISTRATION PTS PAIN GOT BETTER. AT AROUND 1730 PT STARTED COMPLAINING OF SOME CHEST PRESSURE. PT RATED THE PAIN A 3. DR SULLIVAN CALLED AND NOTIFIED. ORDERS FOR PRN MORPHINE WAS GIVEN AND TO TITRATE THE NITRO DRIP UP SOME. AN ORDER FOR TROPS WAS ALSO GIVEN. MORPHINE ADMINISTERED PT. PT REPORTS PAIN TO FEEL BETTER NOT LONG AFTER MORPHINE ADMINISTRATION. PT HAS NOT HAD ANY COMPLAINTS SINCE. PTS NAUSEA HAS BEEN MUCH BETTER COMPARED TO PRIOR SHIFTS. PT ALSO HAS AN APPETITE AND REPORTS FEELING BETTER OVERALL. REPORT GIVEN TO FILM TESTS CHECKER NURSE, CAN KRISHNAMURTHY. CARE BEING TURNED OVER TO THIS NURSE.
[2022-09-10 20:33] LABS: Glucose Point of Care 262 mg/dL (70-110)
[2022-09-10] MEDS: aspirin 81 mg EC Tablet PO (20:51)
[2022-09-10] MEDS: atorvastatin 40 mg Tablet 80 MG PO (20:51)
[2022-09-10] MEDS: lisinopril 20 mg Tablet 40 MG PO (20:51)
[2022-09-10 21:36] LABS: Troponin(5th) Baseline 82 ng/L (0-10)
--- NOTE | 2022-09-10 23:23 | ECG_ITS ---
[facility] Test Date: 2022-09-10 Pat Name: Evelyn Farley Department: Room: ICU03 Gender: Female Global Program Director: : 1945 Requested By: Sandip Sweet Order Number: [id number] Beverley MD: Christine eSpulveda M.D. Measurements Intervals [place] Rate: 79 P: 72 OR: 140 QRS: 9 QRSD: 133 T: 159 QT: 473 QTc: 545 Interpretive Statements SINUS RHYTHM INTRAVENTRICULAR CONDUCTION DELAY [130+ ms QRS DURATION] T wave abnormality, consider lateral ischemia Compared to ECG 09/10/2022 17:28:45 Sinus tachycardia no longer present Short OR interval no longer present Electronically Signed On 09-11-2022 18:13:59 ELEVATOR MECHANIC by Christine Sepulveda M.D. [id number]
[2022-09-10 23:43] LABS: Troponin 5 2HR 81.17 ng/L (0-10)
[2022-09-10 23:44] LABS: Troponin 5 2HR Delta -0.83 ABS# (0-10)
[2022-09-11] VITALS (19 sets, daily range): BP systolic 104–179; BP diastolic 59–102; PULSE 70–121; RESP 20; TEMP 36.7; O2SAT 91–96
[2022-09-11] MEDS: temazepam 15 mg Capsule PO (00:26)
[2022-09-11] MEDS: metoclopramide 5 mg/mL SDV 2 mL IVP ×2 (00:29→08:05)
--- NOTE | 2022-09-11 02:40 | ECG_ITS ---
[facility] Test Date: 2022-09-11 Pat Name: Evelyn Farley Department: Room: ICU03 Gender: Female Recruiting Administrator: : 1945 Requested By: Sandip Sweet Order Number: [id number] Beverley MD: Dhruv Clement M.D. Measurements Intervals [place] Rate: 119 P: 70 MN: 120 QRS: 20 QRSD: 133 T: 180 QT: 337 QTc: 475 Interpretive Statements SINUS TACHYCARDIA INTRAVENTRICULAR CONDUCTION DELAY [130+ ms QRS DURATION] Diffuse nonspecific ST-T changes Compared to ECG 09/10/2022 23:23:14 Sinus rhythm no longer present Myocardial infarct finding no longer present Electronically Signed On 09-12-2022 9:26:51 SCIENTIFIC DATABASE CURATOR by Dhruv Clement M.D. [email or web address] general [email or web address] Fiascosuburban [facility].Clever Machine/store/OM/[id number]
[2022-09-11 03:38] LABS: Troponin 5 6HR 85.78 ng/L (0-10)
[2022-09-11 03:44] LABS: Troponin 5 6HR Delta 3.78 ng/L (0-12)
[2022-09-11 03:46] LABS: Alanine Aminotransferase 8 U/L (0-33); Albumin Level 2.6 g/dL (3.5-5.2); Alkaline Phosphatase 70 U/L (35-105); Anion Gap 13.7 (5-19); Aspartate Amino Transferase 13 U/L (0-32); Blood Urea Nitrogen 23 mg/dL (8-23); Calcium 7.9 mg/dL (8.5-10.5); Carbon Dioxide 20 mmol/L (22-29); Chloride 104 mmol/L (98-107); Globulin 2.7 g/dL (1.3-4.6); Glucose 128 mg/dL (65-115); Osmolality Calculated 283 mOsm/kg (285-295); Potassium 3.7 mmol/L (3.5-5.1); Sodium 134 mmol/L (136-145); Total Bilirubin 0.3 mg/dL (0.15-1.2); Total Protein 5.3 g/dL (6.6-8.7)
[2022-09-11] MEDS: HYDROcodone-acetaminophen 5-325 mg Tablet 1 TAB PO (04:34)
[2022-09-11] MEDS: metroNIDAZOLE IV 500 MG/100 ML PREMIX 100 MG IV (05:27)
[2022-09-11] MEDS: morphine 4 mg/mL SDV 1 mL 2 MG IVP ×2 (05:27→10:05)
[2022-09-11 05:39] LABS: Basophils % 0.1 %; Hemoglobin 10.5 g/dL (11.5-15.3); Lymphocytes # 1.9 10^3/uL (0.8-4.8); Lymphocytes % 14.7 %; Mean Corpuscular HGB Conc 31.8 g/dL (30.0-36.0); Mean Corpuscular Volume 94.3 fl (81-99); Mean Platelet Volume 11.2 fL (7.4-10.4); Monocytes # 0.9 10^3/uL (0.2-0.9); Monocytes % 7.4 %; Neutrophils # 9.75 10^3/uL (1.8-7.7); Neutrophils % 77.3 %; Nucleated Red Blood Cells % 0 %; Platelet Count 338 10^3/cmm (130-400); Red Cell Distribution Width 14.6 % (12.1-15.1); White Blood Count 12.6 10^3/uL (4.0-10.0)
--- NOTE | 2022-09-11 06:09 | PC.NURSE ---
Pt awoke this morning and complained of 8/10 chest pain. Pt received morphine and had no relief, EKG obtained, ST on monitor, Nitro drip resumed per protocol. See documentation in DEC.
[2022-09-11] MEDS: ciprofloxacin 400 MG/200 ML PREMIX 200 MG IV (06:25)
[2022-09-11] MEDS: insulin lispro 100 unit/1 mL SUBCUT ×3 (06:31→11:14)
[2022-09-11] MEDS: ondansetron 2 mg/ML SDV 2 mL 4 MG IVP (06:40)
[2022-09-11 07:33] LABS: Glucose Point of Care 250 mg/dL (70-110)
--- NOTE | 2022-09-11 08:00 | P.PN_ITS ---
Subjective Subjective: Patient had undergone successful revascularization of mid LAD with JALEN x1 and of distal LCx with balloon angioplasty. Had on and off chest pain symptoms overnight. Had morphine and nitro gtt temporarily. Chest pain free this AM. No EKG changes. No significant troponin uptrend. Vitals/I&O/Wt Last Vital Signs Temp 98.1 F 09/11/22 00:00 Pulse 121 H 09/11/22 06:00 Resp 20 H 09/11/22 05:27 BP 108/59 09/11/22 02:30 Pulse Ox 93 09/11/22 05:27 O2 Del Method 09/11/22 00:00 O2 Flow Rate 1 09/10/22 01:30 09/10/22 09/11/22 09/11/22 22:59 06:59 14:59 Intake Total 619.6 / 1159.6 1111.3 / 2270.9 206.8 / 206.8 Balance 619.6 / 1159.6 1111.3 / 2270.9 206.8 / 206.8 Weight last 48 hrs Weight 132 lb Weight 132 lb 11.2 oz Weight 134 lb 4 oz Physical Exam Narrative: GENERAL: Patient is alert, awake and oriented x3. [] NECK: No jugular vein distension. [] HEENT: No cyanosis. No icterus. No pallor. [] HEART: Regular S1 and S2. No murmur, rub or gallop. [] LUNGS: Clear to auscultate bilaterally. [] ABDOMEN: Soft, nontender and nondistended. Positive bowel sounds. No guarding, rebound or tenderness. [] CENTRAL NERVOUS SYSTEM: Grossly nonfocal. [] EXTREMITIES: Lower extremities with 1+ edema bilaterally. Pulses palpable in the lower extremities, both dorsalis pedis and posterior tibial. [] Data 09/11/22 05:13 09/11/22 02:50 A&P Assessment and plan (1) DKA (diabetic ketoacidosis): (2) Hypertension: (3) NSTEMI (non-ST elevated myocardial infarction): (4) Abdominal pain: (5) Diabetes: (6) Gastroparesis: (7) Hyperlipidemia: Qualifiers: Hyperlipidemia type: mixed hyperlipidemia Qualified Code(s): E78.2 - Mixed hyperlipidemia Plan Patient underwent successful revascularization of mid LAD with JALEN x1 and balloon angioplasty for distal left circumflex artery yesterday. Chest pain symptoms are aytpical. No troponin uptrend. No EKG changes. Will medically treat. Low dose Imdur. Continue aspirin and Plavix for atleast 1 year Renal function is stable. Thank you for involving us with care of this patient. Patient is stable to be discharged from cardiology standpoint. Please call with questions. Attestations Medical Necessity Statement*: Care expected to cross 2 midnights Coding Level of Care Code Acute Selector Packer for [facility] Fwd Diagnoses DKA (diabetic ketoacidosis) E11.10 Hypertension I10 NSTEMI (non-ST elevated myocardial infarction) I21.4 Abdominal pain R10.9 Diabetes E11.9 Gastroparesis K31.84 Hyperlipidemia E78.2 Hyperlipidemia type: mixed hyperlipidemia
[2022-09-11] MEDS: insulin glargine 100 units/1 mL 25 UNIT SUBCUT (08:04)
[2022-09-11] MEDS: sodium chloride 0.9% 1,000 ML 100 ML IV (08:05)
[2022-09-11] MEDS: metoprolol tartrate 50 mg Tablet 100 MG PO (08:06)
[2022-09-11] MEDS: clopidogrel 75 mg Tablet PO (08:06)
[2022-09-11] MEDS: aspirin 81 mg EC Tablet PO (08:06)
[2022-09-11] MEDS: amlodipine 10 mg Tablet PO (08:06)
[2022-09-11] MEDS: isosorbide mononitrate ER 30 mg Tablet PO (08:29)
[2022-09-11] MEDS: pantoprazole 40 mg SDV IVP (10:05)
[2022-09-11 10:07] LABS: Glucose Point of Care 284 mg/dL (70-110)
--- NOTE | 2022-09-11 10:57 | P.DS_ITS ---
Discharge Providers Date of Admission: 09/06/22 22:57 Date of Discharge: September 11, 2022 Attending Provider at Admission: Rylee Ulrich MD Attending Provider at Discharge: Davion Wolff MD Primary Care Provider: Jane Strickland MD Diagnoses at Discharge Discharge Diagnosis (1) DKA (diabetic ketoacidosis): Status: Acute (2) Hypertension: Status: Acute (3) NSTEMI (non-ST elevated myocardial infarction): Status: Acute (4) Abdominal pain: Status: Acute (5) Diabetes: Status: Acute (6) Gastroparesis: Status: Acute (7) Hyperlipidemia: Status: Acute Qualifiers: Hyperlipidemia type: mixed hyperlipidemia Qualified Code(s): E78.2 - M ixed hyperlipidemia Reason for Visit Reason for Visit: ABD pain Hospital Course Hospital Course Evelyn Farley is a 76 year old female with known past medical history of diabetic gastroparesis, Briceño's esophagus, diabetes CKD, artery disease s/p stent, hyperlipidemia, hypertension, recent left renal stone, pyelonephritis, UTI presented to the hospital with epigastric pain. During the hospital stay she was managed for NSTEMI patient underwent cardiac cath s/p stent to mid LAD, and PTCA to distal LCx. 2D echo was also done during the hospital stay which showed: LV systolic function is borderline reduced with EF of 45 to 50%.??Mild to moderate h ypokinesis of apical wall is seen.Grade 1 diastolic dysfunction.Trace tricuspid regurgitation. He was discharged on aspirin Plavix statin beta-arlette,imdur and sublingual nitro as needed. She was also managed for colitis: She was kept on Metro and Cipro during the hospital stay, and was discharged on p.o. Metro and Cipro to complete the antibiotic course. Overall patient responded well to above medical management and is being discharged in stable condition to home.She will continue to follow cardiology as outpatient. Physical Exam Const: COMMON NORMALS: patient oriented x3 Resp: COMMON NORMALS: clear to auscultation bilaterally EFFORT & INSPECTION: Yes symmetric chest movement AUSCULTATION: clear to auscultation bilaterally Cardio: COMMON NORMALS: regular rate, regular rhythm, S1 normal heart sound present, S2 normal heart sound present, No gallops present (Cardio), No murmurs present (Cardio), No rub (Cardio) and Peripheral pulses 2+ throughout RATE: regular rate RHYTHM: regular rhythm HEART SOUNDS: S1 normal heart sound present and S2 normal heart sound present PERIPHERAL PULSES: Peripheral pulses 2+ throughout GI: COMMON NORMALS: Normal to inspection, nondistended, normoactive bowel sounds present, Soft to palpation, non-tender, No hepatosplenomegaly present and no masses AUSCULTATION: Yes normoactive bowel sounds PALPATION: Yes Soft to palpation and Yes No hepatosplenomegaly present RECTAL EXAM: deferred Extremity: COMMON NORMALS: no clubbing, cyanosis or edema and no pedal edema Neuro: COMMON NORMALS: patient oriented x3 Discharge Data Studies Completed and Pending Completed Studies During Hospitalization Category Date Time Status CT chest abdomen pelvis [[place] [id number] Cat Scan 09/07/22 00:25 Completed ] Urgent XR chest 1V portable [id number] Stat Exams 09/06/22 17:41 Completed CV. echo wo/w contrast [id number] Stat Ultrasound 09/07/22 00:00 Completed Pending at discharge Category Date Time Status DATA BASE DESIGN ANALYST request for service Routine Exams 09/10/22 09:36 Taken CBC Auto Diff [Complete Blood Count w/Auto] AM LABS Lab 09/12/22 04:00 Ordered CBC Auto Diff [Complete Blood Count w/Auto] AM LABS Lab 09/13/22 04:00 Ordered CMP [Comprehensive Metabolic Panel] AM LABS Lab 09/12/22 04:00 Ordered CMP [Comprehensive Metabolic Panel] AM LABS Lab 09/13/22 04:00 Ordered Radiology Impressions Chest X-Ray 09/06/22 17:41 IMPRESSION: No acute findings. Chest/Abdomen/Pelvis CT 09/07/22 00:25 IMPRESSION: 1. Small hiatal hernia 2. There are no acute chest findings. 3. 2. IMPRESSION: 1. Haziness seen along the serosal margin of the colon and mild thickening of the transverse colonic bowel wall, findings that may represent mild colitis. 2. Stable dystrophic calcifications within the right kidney and scarring of the posterior aspect of the right kidney. Stable 3 mm nonobstructing left renal calculus. Laboratory Results WBC 12.6 10^3/uL (4.0-10.0) H 09/11/22 05:13 Corrected WBC Cancelled 09/11/22 02:50 RBC 3.50 10^6/uL (4.1-5.3) L 09/11/22 05:13 Hgb 10.5 g/dL (11.5-15.3) L 09/11/22 05:13 Hct 33.0 % (37.0-47.0) L 09/11/22 05:13 MCV 94.3 fl (81-99) 09/11/22 05:13 MCH 30.0 pg (28.0-34.0) 09/11/22 05:13 MCHC 31.8 g/dL (30.0-36.0) 09/11/22 05:13 RDW 14.6 % (12.1-15.1) 09/11/22 05:13 Plt Count 338 10^3/cmm (130-400) D 09/11/22 05:13 MPV 11.2 fL (7.4-10.4) H 09/11/22 05:13 Gran % Cancelled 09/11/22 02:50 Neut % (Auto) 77.3 % 09/11/22 05:13 Lymph % (Auto) 14.7 % 09/11/22 05:13 Banks % (Auto) 7.4 % 09/11/22 05:13 Eos % (Auto) 0.0 % 09/11/22 05:13 Baso % (Auto) 0.1 % 09/11/22 05:13 Neut # (Auto) 9.75 10^3/uL (1.8-7.7) H 09/11/22 05:13 Lymph # (Auto) 1.9 10^3/uL (0.8-4.8) 09/11/22 05:13 Banks # (Auto) 0.9 10^3/uL (0.2-0.9) 09/11/22 05:13 Eos # (Auto) 0.0 10^3/uL (0.0-0.8) 09/11/22 05:13 Baso # (Auto) 0.0 10^3/uL (0.0-0.1) 09/11/22 05:13 Absolute Gran (auto) Cancelled 09/11/22 02:50 Nucleated RBC % (auto) 0 % 09/11/22 05:13 Nucleated RBCs # 0.0 /100WBC 09/11/22 05:13 Specimen Type Arterial 09/07/22 08:30 Sample Site Radial, right 09/07/22 08:30 ABG pH 7.41 (7.35-7.45) 09/07/22 08:30 ABG pCO2 30.8 mmHg (35-45) L 09/07/22 08:30 ABG pO2 74.6 mmHg (80.0-100.0) L 09/07/22 08:30 ABG HCO3 19.7 mmol/L (22-26) L 09/07/22 08:30 ABG O2 Saturation 94.5 09/07/22 08:30 ABG Base Excess -4.0 mmol/L (-2.0-2.0) L 09/07/22 08:30 Antonio Test Pos 09/07/22 08:30 A-a O2 Gradient 4.8 mmHg (5-10) L 09/07/22 08:30 Hematocrit 35.6 % (37-47) L 09/07/22 08:30 Hgb O2 Saturation 93.5 % (95-100) L 09/07/22 08:30 Carboxyhemoglobin 0.1 %THgb (0.4-20.1) L 09/07/22 08:30 Methemoglobin 1.0 % (0.4-1.5) 09/07/22 08:30 Total Hemoglobin 11.6 g/dL (12-16) L 09/07/22 08:30 Sodium 141.0 mmol/L (131-143) 09/07/22 08:30 Potassium 3.1 mmol/L (3.5-5.0) L 09/07/22 08:30 Glucose 418.0 mg/dL (70-115) H 09/07/22 08:30 Ionized Calcium 1.1 mmol/L (1.1-1.4) 09/07/22 08:30 O2 Delivery Device Room air 09/07/22 08:30 FiO2 21.0 % 09/06/22 20:16 Systems Project Manager ID [id number] 09/07/22 08:30 Sodium 134 mmol/L (136-145) L 09/11/22 02:50 Potassium 3.7 mmol/L (3.5-5.1) 09/11/22 02:50 Chloride 104 mmol/L (98-107) 09/11/22 02:50 Carbon Dioxide 20 mmol/L (22-29) L 09/11/22 02:50 Anion Gap 13.7 (5-19) 09/11/22 02:50 BUN 23 mg/dL (8-23) 09/11/22 02:50 Creatinine 1.0 mg/dL (0.5-0.9) H 09/11/22 02:50 GFR Calculation Not Reportable 09/11/22 02:50 Glucose 128 mg/dL (65-115) H 09/11/22 02:50 POC Glucose 284 mg/dL (70-110) H 09/11/22 10:03 Estimat Average Glucose 163 09/06/22 18:06 Hemoglobin A1c 7.3 % (4.0-6.0) H 09/06/22 18:06 Calculated Osmolality 283 mOsm/kg (285-295) L 09/11/22 02:50 Lactic Acid 3.2 mmol/L (0.5-2.2) H 09/06/22 03:05 Lactic Acid (Sepsis) 6.2 mmol/L (0.5-2.2) H* 09/07/22 08:50 Lactate 1.3 mmol/L (0.5-2.2) 09/09/22 13:53 Calcium 7.9 mg/dL (8.5-10.5) L 09/11/22 02:50 Phosphorus 2.1 mg/dL (2.5-4.5) L 09/10/22 05:24 Magnesium 1.7 mg/dL (1.7-2.3) 09/10/22 05:24 Total Bilirubin 0.3 mg/dL (0.15-1.2) 09/11/22 02:50 AST 13 U/L (0-32) 09/11/22 02:50 ALT 8 U/L (0-33) 09/11/22 02:50 Alkaline Phosphatase 70 U/L (35-105) 09/11/22 02:50 Troponin T Gen 5 ng/L 154 ng/L (0-10) H* 09/07/22 19:43 Troponin T Baseline 82 ng/L (0-10) H 09/10/22 21:04 Troponin T 120 Minute 81.17 ng/L (0-10) H 09/10/22 23:06 Delta Troponin T -0.83 ABS# (0-10) L 09/10/22 23:06 Troponin T Hi Sens 6Hr 85.78 ng/L (0-10) H 09/11/22 02:50 Troponin T Hi Sens 6Hr Delta 3.78 ng/L (0-12) 09/11/22 02:50 C-React Prot High Sens 1.610 mg/dL (0.0-0.3) H 09/07/22 08:50 NT-Pro-B Natriuret Pep 888 pg/mL (0-450) H 09/06/22 18:06 Total Protein 5.3 g/dL (6.6-8.7) L 09/11/22 02:50 Albumin 2.6 g/dL (3.5-5.2) L 09/11/22 02:50 Globulin 2.7 g/dL (1.3-4.6) 09/11/22 02:50 Triglycerides 305 mg/dL (0-150) H 09/06/22 18:06 Cholesterol 295 mg/dL (0-200) H 09/06/22 18:06 LDL Cholesterol, Calc 191 mg/dL (50-129) H 09/06/22 18:06 HDL Cholesterol 43 mg/dL (60-100) L 09/06/22 18:06 LDL/HDL Ratio 4.44 RATIO (0.00-3.22) H 09/06/22 18:06 Cholesterol/HDL Ratio 6.86 mg/dL (0.0-4.40) H 09/06/22 18:06 Lipase 8 U/L (13-60) L 09/07/22 03:05 Procalcitonin 0.35 ng/mL (0-0.5) 09/07/22 08:50 TSH 4.21 uIU/mL (0.27-4.20) H 09/06/22 18:06 Urine Color Yellow (Yellow) 09/07/22 00:25 Urine Appearance Clear (CLEAR) 09/07/22 00:25 Urine pH 5 (5-7) 09/07/22 00:25 Ur Specific [place] 1.010 (1.005-1.030) 09/07/22 00:25 Urine Protein 1+ (Negative) H 09/07/22 00:25 Urine Glucose (UA) 4+ (Normal) H 09/07/22 00:25 Urine Ketones 2+ (Negative) H 09/07/22 00:25 Urine Blood Neg (Negative) 09/07/22 00:25 Urine Nitrate Negative (Negative) 09/07/22 00:25 Urine Bilirubin Neg (Negative) 09/07/22 00:25 Prot Sulfosalicylic Acd Negative (Negative) 09/06/22 18:45 Urine Urobilinogen Norm mg/dL (Negative) 09/07/22 00:25 Ur Leukocyte Esterase Negative (Negative) 09/07/22 00:25 Urine RBC 0-4 /hpf (0-2) H 09/06/22 18:45 Urine WBC 0-4 /hpf (0-5) H 09/06/22 18:45 Ur Squamous Epith Cells 0-4 /hpf (0-5) H 09/06/22 18:45 Amorphous Sediment Not Reportable 09/06/22 18:45 Urine Bacteria Trace /hpf (NONE) 09/06/22 18:45 Serum Ketones Negative (Negative) 09/07/22 08:50 Influenza Type A Ag Negative (Negative) 09/06/22 18:54 Influenza Type B Ag Negative (Negative) 09/06/22 18:54 Vitals Last Vital Signs Temp 98.1 F 09/11/22 00:00 Pulse 110 H 09/11/22 08:00 Resp 20 H 09/11/22 05:27 BP 104/64 09/11/22 07:30 Pulse Ox 96 09/11/22 08:00 O2 Del Method 09/11/22 00:00 O2 Flow Rate 1 09/10/22 01:30 Discharge Plan Discharge Patient Disposition: Home Condition: Stable Prescriptions: New clopidogrel 75 mg Tablet 75 mg PO DAILY 30 Days Qty: 30 3RF isosorbide mononitrate 30 mg Tablet Extended Release 24 Hr 30 mg PO DAILY 30 Days Qty: 30 0RF metronidazole 500 mg tablet 500 mg PO BID Qty: 6 0RF ciprofloxacin HCl 500 mg tablet 500 mg PO BID Qty: 6 0RF nitroglycerin 0.4 mg tablet, sublingual 0.4 mg sublingual Q5M PRN (Reason: chest pain) Qty: 30 0RF Rx Instructions: do not exceed 3 doses per episode Plavix 75 mg tablet 75 mg PO DAILY Qty: 30 3RF Continued Novolog Flexpen U-100 Insulin 100 unit/mL (3 mL) insulin pen 5 unit SUBCUT TID 30 Days Qty: 4.5 3RF (DME) blood-glucose meter Kit See Rx Instructions .ROUTE .MEDSUPPLY Qty: 1 0RF Rx Instructions: TEST 4 TIMES PER DAY (DME) Accu-Chek [place] Plus test strp Strip See Rx Instructions .ROUTE .MEDSUPPLY Qty: 100 0RF Rx Instructions: TEST QID hydrocodone-acetaminophen 5-325 mg tablet 1 tab PO BID PRN (Reason: pain) 60 Days Qty: 60 0RF Levemir FlexTouch U-100 Insuln 100 unit/mL (3 mL) insulin pen See Rx Instructions .ROUTE .COMPLEX Qty: 15 2RF Dose Instruction: INJECT 80 UNITS SUBCUTANEOUSLY TWICE DAILY Rx Instructions: INJECT 80 UNITS SUBCUTANEOUSLY TWICE DAILY (DME) pen needle, diabetic [TechLITE Pen Needle] 32 gauge x 5/32 needle See Rx Instructions .ROUTE .COMPLEX Qty: 100 1RF Dose Instruction: USE DIRECTED with insulin Rx Instructions: USE DIRECTED with insulin Victoza 3-Moris 0.6 mg/0.1 mL (18 mg/3 mL) pen injector 1.2 mg SUBCUT DAILY ramipril 5 mg capsule 10 mg PO BEDTIME Qty: 60 0RF multivitamin Tablet 1 tab PO QAM metoprolol tartrate 100 mg tablet 100 mg PO BID ropinirole 0.25 mg tablet 0.25 mg PO BEDTIME rosuvastatin 40 mg tablet 40 mg PO BEDTIME Adult Low Dose Aspirin 81 mg tablet,delayed release (DR/EC) 81 mg PO BEDTIME 30 Days Qty: 30 3RF Discharge Orders: Discharge Order (Routine); Ordered 09/11/22 Ordered By: Davion Wolff Referrals: Sandip Sweet M.D [Physician] - 1 month Karishma Isabel FNP [Nurse Practitioner] - 09/19/22 10:45 am Jane Strickland MD [Primary Care Provider] - 09/18/22 2:00 pm Patient Instructions: Ciprofloxacin (By mouth), Isosorbide Dinitrate (By mouth), Metronidazole (By mouth), Nitroglycerin, Rapid Release (By mouth) (NitroMist, Nitrolingual,..., Clopidogrel (By mouth) (Plavix), Clopidogrel (By mouth), Opioid Safety, Pain Management Discharge Attestations Time Spent in Discharge Care*: less than 30 min Quality Metrics Clinical Quality Measures [ No reported AMI, CVA or VTE this stay] Coding Level of Care Code Acute Chg FW DC note Diagnoses DKA (diabetic ketoacidosis) E11.10 Hypertension I10 NSTEMI (non-ST elevated myocardial infarction) I21.4 Abdominal pain R10.9 Diabetes E11.9 Gastroparesis K31.84 Hyperlipidemia E78.2 Hyperlipidemia type: mixed hyperlipidemia
--- NOTE | 2022-09-11 12:03 | PC.SOCIAL ---
IMM Updated Updated pt on IMM. No questions voiced. Provided pt a copy. Initialed, dated, & timed copy in chart.
--- NOTE | 2022-09-11 12:09 | PC.CHAP ---
Pastoral Care Encounter/Spiritual Assessment Type of Contact [] Declined surveying technician visit [] Patient/Family/Request visit [] Outpatient visit [] Follow-up visit [] Physician referral [] Code/Alert [x] Routine visit [] Staff referral [] Actively dying [] Patient sleeping [x] Family support [] [] Out of room [] Palliative care [] [] Receiving care in room [] Pre-surgical visit [] Trauma [] Long length of stay [x] ICU visit [x] Other: PT scheduled to return home today Relational/Emotional Strength [] Patient feels connected with others/family/visitors/staff [] Distress [] Loneliness/isolation [] Abandonment Spirituality of Patient [] Person of Audrey [] Attends Orthodox of their Audrey [] Believes in Prayer [] Reads Bible or Synagogue materials [] There are Spiritual issues to be addressed Chief Concierge Interventions [x] Prayer [] Active listening [] Non-anxious presence [] Spiritual/emotional support [] Crisis/trauma care [] Spiritual counseling [] Bereavement support [] Provided bereavement packet [] Provided Bible/devotional materials [] Provided toy/stuffed animal, coloring book to patient or family member [] Provided Communion [] Anointing/Indiahoma [] Salvation [x] Completed spiritual assessment [] Other: Impact on Illness or Injury [] Angry [] Fearful [] Anxious [] Often cries [] Exhaustion [] Unable to work [] Unable to attend nondenominational [] Unable to walk/stand [] Unable to read [] Unable to drive [] Unable to eat/drink [] Unable to sleep [] Unable to be with family [] Patient intubated [] Other: Summary Time spent with patient
--- NOTE | 2022-09-11 12:10 | PC.NURSE ---
Patient received DC orders. All Iv's removed. All prescriptions sent to preferred pharmacy. All discharge instructions given to patient and verbalized understanding. Patient exited facility to main entrance via w/c with staff.
== END 2022-09-11 12:05 | disposition home or self-care (01) | DRG 247 ==
LOC: ER 22:37 → CSU 23:12 → ICU 09-07 06:31
PROVIDERS: Family Medicine; Internal Medicine; Admitting Provider Internal Medicine; Emergency Provider Family Medicine; PCP Family Medicine; Visit Provider Internal Medicine
DX: I21.4 Non-ST elevation (NSTEMI) myocardial infarction (principal); E11.10 Type 2 diabetes mellitus with ketoacidosis without coma; I25.118 Atherosclerotic heart disease of native coronary artery with other forms of angina pectoris; I44.7 Left bundle-branch block, unspecified; K31.84 Gastroparesis; K52.9 Noninfective gastroenteritis and colitis, unspecified; E11.22 Type 2 diabetes mellitus with diabetic chronic kidney disease; I12.9 Hypertensive chronic kidney disease with stage 1 through stage 4 chronic kidney disease, or unspecified chronic kidney disease; N18.9 Chronic kidney disease, unspecified; E11.42 Type 2 diabetes mellitus with diabetic polyneuropathy; D72.829 Elevated white blood cell count, unspecified; K44.9 Diaphragmatic hernia without obstruction or gangrene; K59.09 Other constipation; E78.2 Mixed hyperlipidemia; K22.70 Barrett's esophagus without dysplasia; F17.200 Nicotine dependence, unspecified, uncomplicated; Z79.4 Long term (current) use of insulin; Z79.84 Long term (current) use of oral hypoglycemic drugs; Z79.82 Long term (current) use of aspirin; Z90.49 Acquired absence of other specified parts of digestive tract; Z90.710 Acquired absence of both cervix and uterus; Z95.5 Presence of coronary angioplasty implant and graft; Z66 Do not resuscitate; Z87.442 Personal history of urinary calculi; F41.8 Other specified anxiety disorders; M79.7 Fibromyalgia; Z96.0 Presence of urogenital implants; E11.43 Type 2 diabetes mellitus with diabetic autonomic (poly)neuropathy
CPT/HCPCS: 36415; 36416; 36600; 71045; 71250; 74176; 80048; 80051; 80053; 80061; 80069; 81001; 81003; 82009; 82330; 82805; 82962; 83036; 83605; 83690; 83735; 83880; 84100; 84145; 84443; 84484; 85025; 86141; 87804; 93005; 93306; 96372; 96374; 96375; 99285; C8929; C9113; J0360; J0744; J1200; J1644; J1650; J1815; J2250; J2270; J2405; J2550; J2765; J2930; J3010; J3475; J3490; J7030; J7050; Q9956

== ENCOUNTER 2022-09-14 21:00 | Inpatient (IN) | payer MEDICARE, OTHER, SELFPAY ==
[2022-09-14 21:02] VITALS: BP 178/92; PULSE 93; RESP 20; TEMP 36.9; O2SAT 85
--- NOTE | 2022-09-14 21:11 | ECG_ITS ---
[facility] Test Date: 2022-09-14 Pat Name: Evelyn Farley Department: Room: Gender: Female Pencil Maker: : 1945 Requested By: Curry Rubalcava Order Number: [id number] Beverley MD: Christine Sepulveda M.D. Measurements Intervals [place] Rate: 93 P: 77 WV: 158 QRS: 69 QRSD: 138 T: 90 QT: 375 QTc: 466 Interpretive Statements SINUS RHYTHM INTRAVENTRICULAR CONDUCTION DELAY [130+ ms QRS DURATION] Compared to ECG 09/11/2022 06:05:28 Sinus tachycardia no longer present ST (T wave) deviation no longer present Electronically Signed On 09-15-2022 7:44:12 PROGRAM CONTROL ANALYST by Christine Sepulveda M.D. [id number]
--- NOTE | 2022-09-14 21:21 | ED_ITS ---
HPI - Chest Pain General: Chief Complaint: Chest Pain Stated Complaint: CHEST PAIN Time Seen by Provider: 09/14/22 21:11 Source: patient and EMS Mode of arrival: EMS Limitations: no limitations History of Present Illness: This patient presents to the emergency department because of chest pain. She states she was engage in her normal activities of daily living approximately 2 hours prior to arrival she developed mid sternal chest pain that radiated straight to her back. She states she ate dinner ea rlier and was nothing unusual or different about her evening meal. She states that this feels similar to pain she is experienced previously. The patient was just admitted to this facility and had a stenting after angioplasty. He states he has been taking her medications faithfully. She denies any fevers or chills but feels like she cannot catch her breath at times. She does not have a history of smoking. No history of gastroesophageal reflux disease, peptic ulcers etc. She has had no blood in her stools or black tarry stools recently. Prior to arrival EMS gave her nitroglycerin as well as 324 mg of aspirin. Pertinent past history: coronary artery disease Onset (ago): hour(s) (2) Timing of current episode: constant Prior episodes: Yes Quality: aching and dull Relieving factors: nothing Associated symptoms: Reports dyspnea; Deny abdominal pain, fever(s), nausea, palpitations, syncope or vomiting Review of Systems Const: Denies: fever(s) or chills Eyes: Denies: change in vision ENMT: Denies: throat pain, odynophagia, nasal discharge or nasal congestion Card: Reports: chest pain; Denies: palpitations, irregular heart rhythm, syncope or pre-syncope Resp: Reports: dyspnea; Denies: productive cough, non-productive cough, wheezing or stridor GI: Denies: abdominal pain, nausea, vomiting, diarrhea, hematochezia or melena : Denies: flank pain, difficulty voiding, dysuria or urinary frequency Musc: Denies: neck pain, back pain, extremity pain or extremity swelling Skin/Breast: Denies: rash Neuro: Denies: headache(s), numbness in extremities or weakness in extremities PFS ED PFSH: Medical History Abdominal pain Acidosis, lactic Anxiety and depression ASHD (arteriosclerotic heart disease) Cataracts, bilateral Chest pain CKD (chronic kidney disease) Colitis Diabetes Diabetic ketoacidosis Diabetic neuropathy Diabetic peripheral neuropathy DKA (diabetic ketoacidosis) Fibromyalgia Gastroparesis Gram-positive bacteremia Hyperlipidemia Hypertension Hypokalemia Hypophosphatemia Insomnia Intractable abdominal pain Intractable vomiting with nausea Left renal stone Left ureteral calculus Leukocytosis Migraine Nausea and vomiting NSTEMI (non-ST elevated myocardial infarction) Odynophagia Pyelonephritis Pyuria Shingles Ureterolithiasis Urolithiasis Yeast vaginitis Surgical History H/O angioplasty H/O carpal tunnel repair H/O: hysterectomy History of cholecystectomy S/P ureteral stent placement Family History Mother , at age 65 Heart attack Father , at age 63 Heart attack Other Diabetes Hypertension Social History Smoking and tobacco status: current every day smoker Second hand smoke exposure: No Alcohol intake: never Adopted: No Caregiver/support person: Yes (spouse) Lives independently: Yes Household members: spouse Marital status: service: No Current occupational status: retired History of recent travel: No Current gender identity: Female Special vandana needs: No Agree to transfusion: Yes Physical Exam Narrative: EXAM NARRATIVE: Appears uncomfortable. She is able to answer questions in a goal-directed fashion. Const: COMMON NORMALS: patient oriented x3 GENERAL APPEARANCE: in distress NUTRITIONAL APPEARANCE: overweight ORIENTATION/CONSCIOUSNESS: Yes awake HENMT: COMMON NORMALS: normocephalic, Normal nasal mucous membranes and turbinates present, moist oral mucous membranes and oropharynx normal HEAD & SCALP: normocephalic NOSE: Normal nasal mucous membranes and turbinates present Eye: COMMON NORMALS: Equal, round and reactive pupils present, EOMs intact bilaterally and no scleral icterus PUPIL: Yes Equal, round and reactive pupils present Neck/C-Spine: COMMON NORMALS: full ROM, no lymphadenopathy and supple Chest: COMMONS NORMALS: normal inspection of the chest Resp: COMMON NORMALS: normal respiratory effort, No retractions, No use of accessory muscles and clear to auscultation bilaterally AUSCULTATION: clear to auscultation bilaterally Cardio: COMMON NORMALS: regular rate, regular rhythm, No murmurs present (Cardio) and Peripheral pulses 2+ throughout RATE: regular rate RHYTHM: regular rhythm PERIPHERAL PULSES: Peripheral pulses 2+ throughout GI: COMMON NORMALS: Normal to inspection, nondistended, normoactive bowel sounds present, no masses and no bruits PALPATION: Yes Tenderness to palpation present (GI) (Epigastric region) : COMMON NORMALS: Yes no CVA tenderness BLADDER/KIDNEY EXAM: Yes no CVA tenderness Back/Pelvis: COMMON NORMALS: no CVA tenderness, thoracic and lumbar spine normal to inspection, no thoracic nor lumbar tenderness and thoraco-lumbar ROM normal Extremity: COMMON NORMALS: normal to inspection, full ROM, capillary refill normal, no calf tenderness and no pedal edema Neuro: COMMON NORMALS: patient oriented x3, moves all extremities, no focal motor deficits and no sensory deficits noted CRANIAL NERVES: Yes CN normal except as noted Psych: COMMON NORMALS: mental status grossly normal Skin: COMMON NORMALS: no rashes or lesions noted and turgor normal GENERAL SKIN EXAM: no rashes or lesions noted and turgor normal Course Reevaluation(s): Reevaluation #1: Patient states iodine allergy. digital technician inquired about the potential risk of giving her contrast for her to CT scan. She is just recently had a coronary angiogram which is a high dye load. She had no untoward effects. I suspect her contrast allergy is likely related to old contrast media. We will go ahead and empirically give her usual accelerated dose of Solu-Medrol and d iphenhydramine to mitigate against any potential allergic reaction. Time: 21:16 Reevaluation #2: Patient's initial troponin returned at a level of significance that indicates she is probably having acute coronary syndrome. Given the fact that she has had CTs within the last 2 months that showed no evidence of aortic disease I do not feel that we need to proceed with a CTA at this point. We will go ahead and repeat an EKG get her symptom free and consult cardiology. Time: 22:27 Consultations: Consultation #1: Discussed with attending lease administrator. We reviewed her current findings to include no clear-cut evidence of ST elevation WA either by typical or scar Bosa's criteria. He recommends starting the nitroglycerin infusion, controlling pain, following troponins. Time: 22:35 Consultation #2: Discussed with overnight hospitalist who agreed to admit patient. Time: 22:47 Vital Signs: Vital signs: Vital Signs Temperature 98.4 F 09/14/22 21:02 Pulse Rate 93 09/14/22 21:02 Respiratory Rate 20 H 09/14/22 21:02 Blood Pressure 178/92 09/14/22 21:02 Pulse Oximetry 85 L 09/14/22 21:02 Oxygen Delivery Me thod 09/14/22 21:02 MDM - Chest Pain Medical Decision Making Patient with known coronary disease who presents to the emergency department for 2-hour history of central chest pain with radiation to the back. Various potential etiologies are considered acutely. We will go ahead and proceed with a cardiac work-up. Her initial EKG is reassuring we will proceed with a CTA of chest abdomen and pelvis. She has no history of aneurysm but certainly a dissection could be potentially an issue. Patient's initial troponin came back at 358 ng/l suggesting coronary artery ischemia. A repeat EKG did not reveal any acute changes other than some nonspecific ST changes in V4 perhaps an V5. No typical criteria for STEMI and no evidence at this time of modified scar Bosa's criteria. Also in the interim reviewed her past records and reviewed and was revealed that she had a CT abdomen and pelvis recently that showed no significant aortic disease. Consulted on-call lease administrator who reviewed her current findings and clinical picture and recommended because of no clear cuts ST elevations at this time to proceed with nitro glycerin drip, for symptom control and trending troponins. Plan will be to intervene should her troponins rise and/or she has no adequate control of her symptoms. Medical Records I reviewed the patient's medical records. CT chest abdomen pelvis with contrast did not reveal any evidence of significant vascular pathology from 09/07/2022 Lab Data I reviewed the patient's lab results. 09/14/22 21:35 09/14/22 21:35 Laboratory Results WBC 11.5 10^3/uL (4.0-10.0) H 09/14/22 21:35 RBC 3.26 10^6/uL (4.1-5.3) L 09/14/22 21:35 Hgb 9.8 g/dL (11.5-15.3) L 09/14/22 21:35 Hct 31.8 % (37.0-47.0) L 09/14/22 21:35 MCV 97.5 fl (81-99) 09/14/22 21:35 MCH 30.1 pg (28.0-34.0) 09/14/22 21:35 MCHC 30.8 g/dL (30.0-36.0) 09/14/22 21:35 RDW 15.5 % (12.1-15.1) H 09/14/22 21:35 Plt Count 348 10^3/cmm (130-400) 09/14/22 21:35 MPV 11.4 fL (7.4-10.4) H 09/14/22 21:35 Neut % (Auto) 68.9 % 09/14/22 21:35 Lymph % (Auto) 22.6 % 09/14/22 21:35 [place] % (Auto) 5.6 % 09/14/22 21:35 Eos % (Auto) 1.4 % 09/14/22 21:35 Baso % (Auto) 0.3 % 09/14/22 21:35 Neut # (Auto) 7.94 10^3/uL (1.8-7.7) H 09/14/22 21:35 Lymph # (Auto) 2.6 10^3/uL (0.8-4.8) 09/14/22 21:35 [place] # (Auto) 0.6 10^3/uL (0.2-0.9) 09/14/22 21:35 Eos # (Auto) 0.2 10^3/uL (0.0-0.8) 09/14/22 21:35 Baso # (Auto) 0.0 10^3/uL (0.0-0.1) 09/14/22 21:35 Nucleated RBC % (auto) 0 % 09/14/22 21:35 Nucleated RBCs # 0.0 /100WBC 09/14/22 21:35 Sodium 138 mmol/L (136-145) 09/14/22 21:35 Potassium 4.1 mmol/L (3.5-5.1) 09/14/22 21:35 Chloride 102 mmol/L (98-107) 09/14/22 21:35 Carbon Dioxide 25 mmol/L (22-29) 09/14/22 21:35 Anion Gap 15.1 (5-19) 12/02/22 21:35 BUN 43 mg/dL (8-23) H 09/14/22 21:35 Creatinine 1.5 mg/dL (0.5-0.9) H 09/14/22 21:35 GFR Calculation Not Reportable 09/14/22 21:35 Glucose 178 mg/dL (65-115) H 09/14/22 21:35 Calculated Osmolality 301 mOsm/kg (285-295) H 09/14/22 21:35 Calcium 8.7 mg/dL (8.5-10.5) 09/14/22 21:35 Total Bilirubin 0.2 mg/dL (0.15-1.2) 09/14/22 21:35 AST 18 U/L (0-32) 09/14/22 21:35 ALT 22 U/L (0-33) 09/14/22 21:35 Alkaline Phosphatase 75 U/L (35-105) 09/14/22 21:35 Troponin T Baseline 358 ng/L (0-10) H* 09/14/22 21:35 NT-Pro-B Natriuret Pep 5844 pg/mL (0-450) H 09/14/22 21:35 Total Protein 6.2 g/dL (6.6-8.7) L 09/14/22 21:35 Albumin 3.4 g/dL (3.5-5.2) L 09/14/22 21:35 Globulin 2.8 g/dL (1.3-4.6) 09/14/22 21:35 Lipase 22 U/L (13-60) 09/14/22 21:35 EKG Data EKG 1: I personally reviewed and interpreted this EKG as follows: Interpretation: Can contemporaneous interpretation of EKG in the emergency department revealed a ventricular rate of 93 bpm. She has normal LA interval. He has normal QRS duration. QTc is normal. She has normal axis.Appears to be unchanged from prior tracings available within the system without any acute ST-T wave changes at this time. EKG 2: I personally reviewed and interpreted this EKG as follows: Interpretation: Contemporaneous review of second EKG this visit reveals left bundle branch block pattern. Ventricular rate of 100 bpm consistent with borderline sinus tachycardia. No concordant ST changes. She does have some nonspecific enmanuel ening of ST segment in limb lead II as well as precordial lead 4 and 5. Discharge Plan Discharge Patient Disposition: Admitted As Inpatient Clinical Impression: ACS (acute coronary syndrome) Condition: Stable Coding Level of Care Code ED Garbage Collector Supervisor for Melissa Fwd Exam Comprehensive
[2022-09-14] MEDS: morphine 4 mg/mL SDV 1 mL IVP ×2 (21:34→22:56)
[2022-09-14] MEDS: diphenhydrAMINE 50 mg/mL SDV 1mL IVP (21:34)
[2022-09-14 21:43] LABS: Basophils % 0.3 %; Eosinophils # 0.2 10^3/uL (0.0-0.8); Eosinophils % 1.4 %; Hematocrit 31.8 % (37.0-47.0); Hemoglobin 9.8 g/dL (11.5-15.3); Lymphocytes # 2.6 10^3/uL (0.8-4.8); Lymphocytes % 22.6 %; Mean Corpuscular HGB Conc 30.8 g/dL (30.0-36.0); Mean Corpuscular Hemoglobin 30.1 pg (28.0-34.0); Mean Corpuscular Volume 97.5 fl (81-99); Mean Platelet Volume 11.4 fL (7.4-10.4); Monocytes # 0.6 10^3/uL (0.2-0.9); Monocytes % 5.6 %; Neutrophils # 7.94 10^3/uL (1.8-7.7); Neutrophils % 68.9 %; Nucleated Red Blood Cells % 0 %; Platelet Count 348 10^3/cmm (130-400); Red Blood Count 3.26 10^6/uL (4.1-5.3); Red Cell Distribution Width 15.5 % (12.1-15.1); White Blood Count 11.5 10^3/uL (4.0-10.0)
[2022-09-14 22:10] LABS: Alanine Aminotransferase 22 U/L (0-33); Albumin Level 3.4 g/dL (3.5-5.2); Alkaline Phosphatase 75 U/L (35-105); Anion Gap 15.1 (5-19); Aspartate Amino Transferase 18 U/L (0-32); Blood Urea Nitrogen 43 mg/dL (8-23); Calcium 8.7 mg/dL (8.5-10.5); Carbon Dioxide 25 mmol/L (22-29); Chloride 102 mmol/L (98-107); Globulin 2.8 g/dL (1.3-4.6); Glucose 178 mg/dL (65-115); Lipase 22 U/L (13-60); NT Pro B Type Natriuretic Pept 5844 pg/mL (0-450); Osmolality Calculated 301 mOsm/kg (285-295); Potassium 4.1 mmol/L (3.5-5.1); Sodium 138 mmol/L (136-145); Total Bilirubin 0.2 mg/dL (0.15-1.2); Total Protein 6.2 g/dL (6.6-8.7)
[2022-09-14 22:20] LABS: Troponin(5th) Baseline 358 ng/L (0-10)
[2022-09-14 22:23] LABS: Slide Review Slide Review Perform
--- NOTE | 2022-09-14 22:31 | XRR_ITS ---
PROCEDURE INFORMATION: Exam: XR Chest Exam date and time: 09/14/2022 10:51 PM Age: 76 years old Clinical indication: Pain; Apnea and shortness of breath; Angina pectoris and chest pressure; Additional info: Cp TECHNIQUE: Imaging protocol: Radiologic exam of the chest. Views: 1 view. COMPARISON: CT chest abdpel [id number] 09/07/2022 1:54 AM FINDINGS: Lungs: Indistinct central interstitial markings. Bilateral perihilar ground-glass opacity. Pleural spaces: There is no pleural effusion or pneumothorax. Heart/Mediastinum: There is mild enlargement of the cardiac silhouette. Bones/joints: Bones are unremarkable. XR/XR chest 1V portable [id number] IMPRESSION: Probable pulmonary edema.
--- NOTE | 2022-09-14 22:33 | ECG_ITS ---
[facility] Test Date: 2022-09-14 Pat Name: Evelyn Farley Department: Room: 105 Gender: Female Carpenter General: : 1945 Requested By: Curry Rubalcava Order Number: [id number] Beverley MD: Sandip Sweet M.D. Measurements Intervals [place] Rate: 100 P: 82 IL: 165 QRS: 56 QRSD: 136 T: 114 QT: 365 QTc: 471 Interpretive Statements SINUS TACHYCARDIA INTRAVENTRICULAR CONDUCTION DELAY [130+ ms QRS DURATION] Compared to ECG 09/14/2022 21:06:31 Sinus rhythm no longer present Electronically Signed On 09-16-2022 19:47:41 CONTRACT SHELTERED WORKSHOP SUPERVISOR by Sandip Sweet M.D. [id number]
--- NOTE | 2022-09-14 22:43 | P.HP_ITS ---
Providers/Chief Complaint Primary Care Provider: Jane Strickland MD Chief Complaint: CHEST PAIN History of Present Illness Evelyn Farley is a 76 year old female was recently discharged from the hospital on 09/11, during the hospital stay she was managed for NSTEMI patient underwent cardiac cath s/p stent to mid LAD, and PTCA to distal LCx presented today with chief complaint of left-sided chest pain. In the ER she has been diagnosed with NSTEMI. Cardiology has been consulted. She is started on heparin and nitroglycerin drip. Patient is stating that her symptoms started roughly 90 minutes before her arrival in the ER, she was resting comfortably when she started having left- sided chest pain which was radiating towards her left arm she will experiencing dry heaves and shortness of breath in the ER she was put on nitroglycerin drip I uptitrated her nitroglycerin drip to 50 mics because of her persistent pain, She was hypertensive blood pressure 178/110mmhg Patient was on 2 L nasal cannula She was complaining of chest pain 04/22 Review of Systems Const: Denies: fever(s) Eyes: Denies: change in vision ENMT: Denies: throat pain Card: Reports: chest pain Resp: Reports: dyspnea GI: Reports: nausea : Denies: flank pain Musc: Denies: neck pain Skin/Breast: Denies: rash Neuro: Denies: headache(s) Psych: Denies: anxiety Endo: Denies: polyuria Alen/Lymph: Denies: easy bruising All/Imm: Denies: urticaria Medications/Allergies Home Medications Medication Instructions Recorded Confirmed Last Taken Type blood-glucose meter #1 ea 11/19/19 09/07/22 Unknown Rx insulin aspart U-100 100 unit/mL 5 unit (0.05 mL) SUBCUT TID 30 09/26/21 09/07/22 09/06/22 Rx (3 mL) subcutaneous pen (Novolog days #4.5 mL Flexpen U-100 Insulin aspart) blood sugar diagnostic (Accu-Chek #100 ea 05/09/22 09/07/22 Unknown Rx Merced Plus test strips) metoprolol tartrate 100 mg tablet 100 mg PO BID 05/23/22 09/07/22 09/06/22 History multivitamin 1 tab PO QAM 05/23/22 09/07/22 09/06/22 History ropinirole 0.25 mg tablet 0.25 mg PO BEDTIME 05/23/22 09/07/22 09/06/22 History liraglutide 0.6 mg/0.1 mL (18 mg/3 1.2 mg SUBCUT DAILY 06/06/22 09/07/22 09/06/22 History mL) subcutaneous pen injector (Victoza 3-Moris) ramipril 5 mg capsule 10 mg PO BEDTIME #60 caps 06/10/22 09/07/22 09/06/22 Rx hydrocodone 5 mg-acetaminophen 325 1 tab PO BID PRN pain 60 days #60 07/24/22 09/07/22 09/06/22 Rx mg tablet tabs insulin detemir U-100 100 unit/mL See Rx Instructions .Route 08/14/22 09/07/22 09/06/22 Rx (3 mL) subcutaneous pen (Levemir .COMPLEX #15 mL FlexTouch U-100 Insulin) pen needle, diabetic 32 gauge x ##100 08/20/22 09/07/22 Unknown Rx (TechLITE Pen Needle) aspirin 81 mg tablet,delayed 81 mg PO BEDTIME 30 days #30 tabs 09/11/22 Unknown Rx release (Adult Low Dose Aspirin) ciprofloxacin HCl 500 mg tablet 500 mg PO BID #6 tabs 09/11/22 Unknown Rx clopidogrel 75 mg tablet 75 mg PO DAILY 30 days #30 tabs 09/11/22 Unknown Rx clopidogrel 75 mg tablet (Plavix) 75 mg PO DAILY #30 tabs 09/11/22 Unknown Rx isosorbide mononitrate 30 mg 30 mg PO DAILY 30 days #30 tabs 09/11/22 Unknown Rx tablet,extended release 24 hr metronidazole 500 mg tablet 500 mg PO BID #6 tabs 09/11/22 Unknown Rx nitroglycerin 0.4 mg sublingual 0.4 mg sublingual Q5M PRN chest 09/11/22 Unknown Rx tablet pain #30 tabs rosuvastatin 40 mg tablet 40 mg PO BEDTIME #30 tabs 09/14/22 Unknown Rx Allergies Allergy/AdvReac Type Severity Reaction Status Date / Time gabapentin Allergy hallucinati Verified 07/28/22 11:22 ons Iodinated Contrast Media Allergy Unknown Verified 07/28/22 11:22 nifedipine [From Procardia] Allergy Unknown Verified 07/28/22 11:22 prochlorperazine Allergy Unknown Verified 07/28/22 11:22 [From Compazine] PFSH Acute PFSH: Medical History Abdominal pain Acidosis, lactic Anxiety and depression ASHD (arteriosclerotic heart disease) Cataracts, bilateral Chest pain CKD (chronic kidney disease) Colitis Diabetes Diabetic ketoacidosis Diabetic neuropathy Diabetic peripheral neuropathy DKA (diabetic ketoacidosis) Fibromyalgia Gastroparesis Gram-positive bacteremia Hyperlipidemia Hypertension Hypokalemia Hypophosphatemia Insomnia Intractable abdominal pain Intractable vomiting with nausea Left renal stone Left ureteral calculus Leukocytosis Migraine Nausea and vomiting NSTEMI (non-ST elevated myocardial infarction) Odynophagia Pyelonephritis Pyuria Shingles Ureterolithiasis Urolithiasis Yeast vaginitis Surgical History H/O angioplasty H/O carpal tunnel repair H/O: hysterectomy History of cholecystectomy S/P ureteral stent placement Family History Mother , at age 65 Heart attack Father , at age 63 Heart attack Other Diabetes Hypertension Social History Smoking and tobacco status: current every day smoker Second hand smoke exposure: No Alcohol intake: never Adopted: No Caregiver/support person: Yes (spouse) Lives independently: Yes Household members: spouse Marital status: service: No Current occupational status: retired History of recent travel: No Current gender identity: Female Special vandana needs: No Agree to transfusion: Yes Vitals/I&O/Wt Last Vital Signs Temp 98.4 F 09/14/22 21:02 Pulse 93 09/14/22 21:02 Resp 20 H 09/14/22 21:02 BP 178/92 09/14/22 21:02 Pulse Ox 85 L 09/14/22 21:02 O2 Del Method 09/14/22 21:02 Physical Exam Narrative: Active chest pain Patient is describing heaviness 10/10 Hypertensive Awake and alert Nonfocal neuro exam Currently on 2 L nasal cannula Abdomen distended nontender Lower extremity 1+ edema Awake and alert Nonfocal neuro exam In distress because of chest pain Data 09/14/22 21:35 09/14/22 21:35 A&P Assessment and plan (1) ACS (acute coronary syndrome): Plan Acute coronary syndrome Persistent chest pain Acute CHF exacerbation, preserved ejection fraction heart failure exacerbation, clinical signs of fluid overload Started heparin and nitroglycerin drip Cardiology consulted We will keep her n.p.o. First troponin greater than 350 BNP 5800 Currently requiring 2 L of oxygen Awake and alert Hypertensive emergency, currently on nitroglycerin drip She has not missed any of her medications she is compliant with aspirin and Plavix I will put atorvastatin N.p.o. for now She will go for an angiogram if her pain does not respond to nitroglycerin titration overnight We will keep cardiology updated Patient is DNR/DNI goals of care discussed with the patient, her and the daughter Attestations Medical Necessity Statement*: More than 2 midnights anticipated Time Spent in Patient Care: 40 Coding Level of Care Code Acute Scheduling Representative for Melissa King Diagnoses ACS (acute coronary syndrome) I24.9
[2022-09-14 22:56] VITALS: RESP 26
[2022-09-14] MEDS: nitroglycerin drip 50 MG/250 ML PREMIX IV (23:01)
--- NOTE | 2022-09-14 23:11 | ECG_ITS ---
[facility] Test Date: 2022-09-15 Pat Name: Evelyn Farley Department: Room: 105 Gender: Female Environment Friendly Landscape Designer: : 1945 Requested By: Curry Rubalcava Order Number: [id number] Beverley MD: Sandip Sweet M.D. Measurements Intervals [place] Rate: 77 P: 70 ID: [id number] QRS: 36 QRSD: 134 T: 115 QT: 434 QTc: 493 Interpretive Statements SINUS RHYTHM INTRAVENTRICULAR CONDUCTION DELAY [130+ ms QRS DURATION] POSSIBLE ANTERIOR MYOCARDIAL INFARCTION , OF INDETERMINATE AGE [30 ms Q WAVE IN V3/V4, OR R < 0.2 mV IN V4] Compared to ECG 09/14/2022 21:06:31 Myocardial infarct finding now present Electronically Signed On 09-16-2022 19:59:24 SLITTING MACHINE OPERATOR HELPER by Sandip Sweet M.D. [id number]
[2022-09-14 23:54] VITALS: BP 147/81; PULSE 93; RESP 15; O2SAT 96
[2022-09-15] VITALS (114 sets, daily range): BP systolic 98–180; BP diastolic 51–106; PULSE 68–102; RESP 10–35; TEMP 36.8–37.3; O2SAT 92–100; BMI 28.6
[2022-09-15 00:07] LABS: Troponin 5 2HR 341.2 ng/L (0-10); Troponin 5 2HR Delta -16.8 ABS# (0-10)
[2022-09-15 00:44] LABS: Partial Thromboplastin Time 19.3 SECONDS (23.9-36.7)
[2022-09-15] MEDS: heparin 5,000 unit/mL INJ 1 mL IV ×2 (00:56→21:41)
[2022-09-15] MEDS: heparin drip 25,000 UNIT/500 ML PREMIX 21 UNIT IV (00:57)
--- NOTE | 2022-09-15 02:55 | PC.NURSE ---
Spoke with Dr Jacinto regarding patient complaints of chest pain despite Nitro gtt at 50mcg/min. wanted gtt increased to 60mcg/min. Text Transcriber Viridiana stated that nitro gtt above 50mcg/min would need to go to ICU. Rodney said ok to transfer patient to ICU so gtt can be titrated up. The patient was transfered to ICU and settled in ICU3. Nurse called and made patients daughter Dena aware of patient transfer.
--- NOTE | 2022-09-15 03:06 | ECG_ITS ---
[facility] Test Date: 2022-09-15 Pat Name: Evelyn Farley Department: Room: ICU03 Gender: Female Fleet Coordinator: : 1945 Requested By: Curry Rubalcava Order Number: [id number] Beverley MD: Sandip Sweet M.D. Measurements Intervals [place] Rate: 72 P: 62 [place]: 159 QRS: 18 QRSD: 131 T: 121 QT: 439 QTc: 481 Interpretive Statements SINUS RHYTHM INTRAVENTRICULAR CONDUCTION DELAY [130+ ms QRS DURATION] POSSIBLE ANTERIOR MYOCARDIAL INFARCTION , OF INDETERMINATE AGE [30 ms Q WAVE IN V3/V4, OR R < 0.2 mV IN V4] Compared to ECG 09/15/2022 00:31:56 No significant changes Electronically Signed On 09-16-2022 19:59:16 HOISTMAN by Sandip Sweet M.D. [id number]
[2022-09-15 03:50] LABS: Basophils % 0.2 %; Eosinophils % 0.2 %; Hematocrit 26.7 % (37.0-47.0); Hemoglobin 8.5 g/dL (11.5-15.3); Lymphocytes % 8.8 %; Mean Corpuscular HGB Conc 31.8 g/dL (30.0-36.0); Mean Corpuscular Volume 94.3 fl (81-99); Mean Platelet Volume 11.3 fL (7.4-10.4); Monocytes # 0.1 10^3/uL (0.2-0.9); Neutrophils # 9.75 10^3/uL (1.8-7.7); Neutrophils % 88.4 %; Nucleated Red Blood Cells % 0 %; Platelet Count 367 10^3/cmm (130-400); Red Blood Count 2.83 10^6/uL (4.1-5.3); Red Cell Distribution Width 15.2 % (12.1-15.1)
[2022-09-15] MEDS: morphine 4 mg/mL SDV 1 mL 2 MG IVP ×2 (03:57→23:09)
--- NOTE | 2022-09-15 04:00 | PC.NURSE ---
Morphine At 0315, patient's blood pressure 106/55 and patient still reporting chest pain at a 7. Nitro not titrated up due to possibility of lowering blood pressure further. Dr. Jacinto contacted and order received for 2 mg morphine IVP once and to decrease nitro drip as needed. See MAR for details.
[2022-09-15 04:09] LABS: Troponin 5 6HR 303.7 ng/L (0-10)
[2022-09-15 04:11] LABS: Blood Urea Nitrogen 45 mg/dL (8-23); Calcium 8.5 mg/dL (8.5-10.5); Carbon Dioxide 25 mmol/L (22-29); Chloride 103 mmol/L (98-107); Glucose 170 mg/dL (65-115); Magnesium 1.7 mg/dL (1.7-2.3); Osmolality Calculated 298 mOsm/kg (285-295); Sodium 136 mmol/L (136-145)
--- NOTE | 2022-09-15 04:15 | PC.NURSE ---
Heparin Drip Due to the possibility of going to laborer hide house today, Dr. Sweet contacted to verify continuation of heparin drip. Order received to continue heparin drip per protocol until further notice.
[2022-09-15 04:31] LABS: Anion Gap 12.8 (5-19); Potassium 4.8 mmol/L (3.5-5.1)
[2022-09-15 07:28] LABS: Partial Thromboplastin Time 88.1 SECONDS (23.9-36.7)
--- NOTE | 2022-09-15 08:02 | USCV_ITS ---
Evelyn Farley Age: 76 Gender: F : 1945 Exam Date: 09/15/2022 09:07 Ordering Phys: Sandip Sweet M.D ([email or web address]) Technologist: BALJIT [place] [facility] [place]: EF BP: 111 / 56 HR: 74 Rhythm: Sinus Technical Quality: Adequate MEASUREMENTS (Male / Female) Normal Values 2D ECHO LV Diastolic Diameter PLAX 5.3 cm 4.2 - 5.9 / 3.9 - 5.3 cm LV Systolic Diameter PLAX 3.9 cm IVS Diastolic Thickness 0.8 cm 0.6 - 1.0 / 0.6 - 0.9 cm IVS Systolic Thickness 0.9 cm LVPW Diastolic Thickness 0.7 cm 0.6 - 1.0 / 0.6 - 0.9 cm LVPW Systolic Thickness 1.0 cm LV Ejection Fraction 2D Teich 50.8 % LV Ejection Fraction MOD 2C 38.6 % LV Ejection Fraction 2C AL 39.9 % FINDINGS Left Ventricle Right Ventricle Right Atrium Left Atrium Mitral Valve Aortic Valve Tricuspid Valve Pulmonic Valve Pericardium Aorta IVC CONCLUSIONS This is a limited echocardiogram performed to assess LV systolic function. LV systolic function is mildly reduced with EF of 45 to 50%. Accurate assessment of regional wall motion abnormality is not possible because of poor ultrasonic windows. Compared to prior echocardiogram from 09/07/2022, no significant changes are seen Sandip Sweet MD (Electronically Signed) Final Date: 15 September 2022 12:23 S
[2022-09-15 08:29] LABS: Reticulocyte % 2.6 % (0.5-2.0)
[2022-09-15 08:41] LABS: Ferritin 99 ng/mL (15-150); Iron 63 ug/dL (37-145)
--- NOTE | 2022-09-15 10:08 | P.CONIM_ITS ---
Providers/Reason For Consult Consulting Physician/Specialty*: Cardiology/ Cardiology Reason for Consult*: Chest pain Requesting Physician: Dr Jacinto Attending Physician: Abbey Jacinto MD Primary Care Provider: Jane Strickland MD History of Present Illness History of Present Illness Evelyn Farley is a 76 year old female with past medical history of CAD, congestive heart failure who was recently discharged from the hospital after having PCI of mid LAD and balloon angioplasty of left circumflex artery. She presented again today has had 1 episode of significant chest pain. Also was associated with shortness of breath. Her creatinine was elevated. Troponin was around 350 and trended down subsequently. EKG does not show any major ischemic changes. This morning she denies active chest pain. She is on nitro drip. Chest x-ray demonstrating significant pulmonary edema. Review of Systems Const: Denies: fever(s) or chills ENMT: Denies: throat pain, ear or mastoid pain, nasal discharge or nasal congestion Card: Reports: chest pain; Denies: palpitations, edema, dyspnea on exertion or orthopnea Resp: Denies: dyspnea, productive cough or non-productive cough GI: Reports: nausea, vomiting and GI cramping; Denies: hematemesis, coffee ground emesis, heartburn, diarrhea, constipation, bloating, belching, excessive flatus, fecal incontinence, change in bowel habits, change in stool character, hematochezia or melena : Denies: dysuria or hematuria Skin/Breast: Denies: rash or pruritus Medications/Allergies Home Medications Medication Instructions Recorded Confirmed Last Taken Type blood-glucose meter #1 ea 11/19/19 09/15/22 Unknown Rx insulin aspart U-100 100 unit/mL 5 unit (0.05 mL) SUBCUT TID 30 09/26/21 09/15/22 09/06/22 Rx (3 mL) subcutaneous pen (Novolog days #4.5 mL Flexpen U-100 Insulin aspart) blood sugar diagnostic (Accu-Chek #100 ea 05/09/22 09/15/22 Unknown Rx Merced Plus test strips) metoprolol tartrate 100 mg tablet 100 mg PO BID 05/23/22 09/15/22 09/06/22 History multivitamin 1 tab PO QAM 05/23/22 09/15/22 09/06/22 History ramipril 5 mg capsule 10 mg PO BEDTIME #60 caps 06/10/22 09/15/22 09/06/22 Rx hydrocodone 5 mg-acetaminophen 325 1 tab PO BID PRN pain 60 days #60 07/24/22 09/15/22 09/06/22 Rx mg tablet tabs pen needle, diabetic 32 gauge x ##100 08/20/22 09/15/22 Unknown Rx 5/32 (TechLITE Pen Needle) aspirin 81 mg tablet,delayed 81 mg PO BEDTIME 30 days #30 tabs 09/11/22 09/15/22 Unknown Rx release (Adult Low Dose Aspirin) clopidogrel 75 mg tablet 75 mg PO DAILY 30 days #30 tabs 09/11/22 09/15/22 Un known Rx isosorbide mononitrate 30 mg 30 mg PO DAILY 30 days #30 tabs 09/11/22 09/15/22 Unknown Rx tablet,extended release 24 hr nitroglycerin 0.4 mg sublingual 0.4 mg sublingual Q5M PRN chest 09/11/22 09/15/22 Unknown Rx tablet pain #30 tabs rosuvastatin 40 mg tablet 40 mg PO BEDTIME #30 tabs 09/14/22 09/15/22 Unknown Rx insulin detemir U-100 100 unit/mL 60 unit SUBCUT BID 09/15/22 09/15/22 Unknown History (3 mL) subcutaneous pen (Levemir FlexTouch U-100 Insulin) omeprazole 20 mg capsule,delayed 20 mg PO BID 09/15/22 09/15/22 Unknown History release Allergies Allergy/AdvReac Type Severity Reaction Status Date / Time gabapentin Allergy hallucinati Verified 07/28/22 11:22 ons Iodinated Contrast Media Allergy Unknown Verified 07/28/22 11:22 nifedipine [From Procardia] Allergy Unknown Verified 07/28/22 11:22 prochlorperazine Allergy Unknown Verified 07/28/22 11:22 [From Compazine] Current Medications Generic Name Dose Route Start Last Admin Trade Name Freq PRN Reason Stop Dose Admin Heparin Sodium (Porcine) 0 unit 09/15/22 00:30 09/15/22 00:56 Heparin 5,000 Unit/Ml Inj 1 Ml IV 3,700 unit PRN PRN Administration Heparin weight-base protocol Protocol Nitroglycerin/Dextrose 50 mg in 250 mls @ 0 mls/hr 09/14/22 22:45 09/15/22 03:35 Nitroglycerin Drip IV 50 mcg/min .Q0M LIAT 15 mls/hr Titration Protocol Per Protocol Heparin Sodium/Sodium Chloride 25,000 unit in 500 mls @ 0 mls/hr 09/15/22 00:30 09/15/22 00:57 Heparin Drip IV 14.2 unit/kg/hr .Q0M LIAT 21 mls/hr Administration Protocol Per Protocol PFSH Acute PFSH: Medical History (Updated 09/17/22 @ 08:22 by Sandip Sweet M.D) Abdominal pain Acidosis, lactic Anxiety and depression ASHD (arteriosclerotic heart disease) Cataracts, bilateral Chest pain CKD (chronic kidney disease) Colitis Diabetes Diabetic ketoacidosis Diabetic neuropathy Diabetic peripheral neuropathy DKA (diabetic ketoacidosis) Fibromyalgia Gastroparesis Gram-positive bacteremia Hyperlipidemia Hypertension Hypokalemia Hypophosphatemia Insomnia Intractable abdominal pain Intractable vomiting with nausea Left renal stone Left ureteral calculus Leukocytosis Migraine Nausea and vomiting NSTEMI (non-ST elevated myocardial infarction) Odynophagia Pyelonephritis Pyuria Shingles Ureterolithiasis Urolithiasis Yeast vaginitis Surgical History H/O angioplasty H/O carpal tunnel repair H/O: hysterectomy History of cholecystectomy S/P ureteral stent placement Family History Mother , at age 65 Heart attack Father , at age 63 Heart attack Other Diabetes Hypertension Social History Smoking and tobacco status: current every day smoker Second hand smoke exposure: No Alcohol intake: never Adopted: No Caregiver/support person: Yes (spouse) Lives independently: Yes Household members: spouse Marital status: service: No Current occupational status: retired History of recent travel: No Current gender identity: Female Special vandana needs: No Agree to transfusion: Yes Vitals/I&O/Wt Last Vital Signs Temp 99.2 F 09/15/22 02:30 Pulse 86 09/15/22 09:07 Resp 16 09/15/22 09:07 BP 128/71 09/15/22 06:30 Pulse Ox 95 09/15/22 09:07 O2 Del Method 09/15/22 09:07 O2 Flow Rate 3 09/15/22 02:30 09/14/22 09/15/22 09/15/22 22:59 06:59 14:59 Intake Total 67.4 / 67.4 Output Total 800 / 800 Balance -732.6 / -732.6 Weight last 48 hrs Weight 156 lb 9.6 oz Weight 163 lb Physical Exam Narrative: GENERAL: Patient is alert, awake and oriented x3. [] NECK: No jugular vein distension. [] HEENT: No cyanosis. No icterus. No pallor. [] HEART: Regular S1 and S2. No murmur, rub or gallop. [] LUNGS: Clear to auscultate bilaterally. [] ABDOMEN: Soft CENTRAL NERVOUS SYSTEM: Grossly nonfocal. [] EXTREMITIES: Lower extremities with 1+ edema bilaterally. Pulses palpable in the lower extremities, both dorsalis pedis and posterior tibial. [] Urinary Catheter Management: Cisneros: Cath Placed During This Visit: yes Reason for Continuing Indwelling Catheter: Accurate Measurement of Urinary Output in Critically Ill Patients Urinary Catheter Date of Insertion: 09/14/22 Urinary Catheter Time of Insertion: 23:56 Data 09/15/22 03:12 09/15/22 03:12 A&P Assessment and plan (1) CHF exacerbation: (2) Chest pain: (3) ASHD (arteriosclerotic heart disease): Plan Patient has presented with chest discomfort and volume overload. Renal function is worse than previously. No urgent indication for coronary angiogram given high risk of renal dysfunction and no evidence of ischemic changes on EKG. Chest pain is atypical. We will aggressively diurese. Monitor renal function. Troponins have trended down. Likely secondary to renal dysfunction and CHF exacerbation Order limited echocardiogram. If there is significant decrease in cardiac function, we will consider proceeding with coronary angiogram Thank you for involving us with care of this patient. We will continue to fol low. Please call with questions. Consult Attestations Medical Necessity Statement: Care expected to cross 2 midnights. Coding Level of Care Code Acute Human Resources Hr Representative for [facility] F[facility] Diagnoses CHF exacerbation I50.9 Chest pain R07.9 ASHD (arteriosclerotic heart disease) I25.10
[2022-09-15] MEDS: sucralfate 1 gm Tablet PO ×2 (10:24→20:29)
[2022-09-15] MEDS: atorvastatin 40 mg Tablet 80 MG PO (10:24)
[2022-09-15] MEDS: clopidogrel 75 mg Tablet PO (10:24)
[2022-09-15] MEDS: metoprolol tartrate 50 mg Tablet PO ×2 (10:24→20:30)
[2022-09-15] MEDS: pantoprazole 40 mg SDV IVP ×2 (10:24→20:30)
[2022-09-15] MEDS: HYDROcodone-acetaminophen 5-325 mg Tablet 1 TAB PO ×2 (10:25→20:45)
[2022-09-15] MEDS: FUROsemide 10 mg/mL SDV 2mL 20 MG IVP (10:25)
[2022-09-15 11:55] LABS: Glucose Point of Care 244 mg/dL (70-110)
[2022-09-15] MEDS: insulin lispro 100 unit/1 mL SUBCUT ×2 (13:35→17:26)
--- NOTE | 2022-09-15 14:01 | PM.PN ---
Subjective Subjective: Patient was seen this morning, daughter is at bedside, she denies any chest pain, does have shortness of breath, lower extremity edema she denies any bloody or black stools Vitals/I&O/Wt Last Vital Signs Temp 99.2 F 09/15/22 02:30 Pulse 86 09/15/22 09:07 Resp 16 09/15/22 09:07 BP 128/71 09/15/22 06:30 Pulse Ox 95 09/15/22 09:07 O2 Del Method 09/15/22 09:07 O2 Flow Rate 3 09/15/22 02:30 09/14/22 09/15/22 09/15/22 22:59 06:59 14:59 Intake Total 67.4 / 67.4 Output Total 800 / 800 Balance -732.6 / -732.6 Weight last 48 hrs Weight 71.033 kg Weight 73.936 kg Physical Exam Const: COMMON NORMALS: no acute distress and patient oriented x3 Resp: COMMON NORMALS: normal respiratory effort, No retractions, No use of accessory muscles and clear to auscultation bilaterally AUSCULTATION: clear to auscultation bilaterally Cardio: COMMON NORMALS: regular rate, regular rhythm, S1 normal heart sound present and S2 normal heart sound present RATE: regular rate RHYTHM: regular rhythm HEART SOUNDS: S1 normal heart sound present and S2 normal heart sound present GI: COMMON NORMALS: Normal to inspection, nondistended, normoactive bowel sounds present and non-tender Extremity: GENERAL: Yes edema Neuro: COMMON NORMALS: patient oriented x3 Psych: COMMON NORMALS: mental status grossly normal Urinary Catheter Management: Cisneros: Cath Placed During This Visit: yes Reason for Continuing Indwelling Catheter: Accurate Measurement of Urinary Output in Critically Ill Patients Urinary Catheter Date of Insertion: 09/14/22 Urinary Catheter Time of Insertion: 23:56 Data 09/15/22 03:12 09/15/22 03:12 A&P Assessment and plan (1) ACS (acute coronary syndrome): Plan Acute coronary syndrome Persistent chest pain Acute CHF exacerbation, preserved ejection fraction heart failure exacerbation, clinical signs of fluid overload Started heparin and nitroglycerin drip Cardiology consulted We will keep her n.p.o. First troponin greater than 350, 6-hour 303, delta 54 BNP 5800 Currently requiring 2 L of oxygen Alert oriented x3 Hypertensive emergency, currently on nitroglycerin drip, weaning off, continue home metoprolol She has not missed any of her medications she is compliant with aspirin and Plavix I will put atorvastatin Lasix for fluid overload, venous ultrasound Possible coronary angiogram depending on symptomatology We will keep cardiology updated Limited echo AMY on CKD, monitor creatinine Acute on chronic anemia, monitor hemoglobin, Protonix, Carafate Patient is DNR/DNI goals of care discussed with the patient, her and the daughter Attestations Medical Necessity Statement*: Patient requires hospitalization for NSTEMI Coding Level of Care Code Acute Learning Solutions Specialist for [facility] Diagnoses ACS (acute coronary syndrome) I24.9
--- NOTE | 2022-09-15 14:04 | USR_ITS ---
PROCEDURE INFORMATION: Exam: US Duplex Lower Extremity Veins, Bilateral Exam date and time: 09/15/2022 6:20 PM Age: 76 years old Clinical indication: Other: Chest pain; Additional info: Dvt TECHNIQUE: Imaging protocol: Real-time Duplex ultrasound of the bilateral extremities with 2-D adler scale, color Doppler flow and spectral waveform analysis with image documentation. Complete exam focused on the bilateral lower extremity veins. COMPARISON[place] [id number] 09/07/2022 1:54 AM FINDINGS: Right deep veins: Unremarkable. The common femoral, femoral, proximal profunda femoral and popliteal veins are patent without thrombus. Normal Doppler waveforms. Normal compressibility and/or augmentation response. Right superficial veins: Saphenofemoral junction is patent without thrombus. Left deep veins: Unremarkable. The common femoral, femoral, proximal profunda femoral and popliteal veins are patent without thrombus. Normal Doppler waveforms. Normal compressibility and/or augmentation response. Left superficial veins: Saphenofemoral junction is patent without thrombus. Soft tissues: Unremarkable. US/CV venous duplex [facility] [id number] IMPRESSION: No evidence of deep vein thrombosis.
[2022-09-15 14:36] LABS: Basophils % 0.2 %; Eosinophils % 0.1 %; Hematocrit 29.2 % (37.0-47.0); Lymphocytes # 1.4 10^3/uL (0.8-4.8); Lymphocytes % 10.3 %; Mean Corpuscular HGB Conc 30.8 g/dL (30.0-36.0); Mean Corpuscular Hemoglobin 30.2 pg (28.0-34.0); Mean Platelet Volume 11.6 fL (7.4-10.4); Monocytes # 0.5 10^3/uL (0.2-0.9); Monocytes % 3.8 %; Neutrophils # 11.58 10^3/uL (1.8-7.7); Neutrophils % 83.7 %; Nucleated Red Blood Cells % 0 %; Platelet Count 332 10^3/cmm (130-400); Red Blood Count 2.98 10^6/uL (4.1-5.3); Red Cell Distribution Width 15.5 % (12.1-15.1); White Blood Count 13.8 10^3/uL (4.0-10.0)
[2022-09-15 14:55] LABS: Anion Gap 16.1 (5-19); Blood Urea Nitrogen 38 mg/dL (8-23); Calcium 8.3 mg/dL (8.5-10.5); Carbon Dioxide 21 mmol/L (22-29); Chloride 102 mmol/L (98-107); Glucose 318 mg/dL (65-115); Osmolality Calculated 301 mOsm/kg (285-295); Potassium 4.1 mmol/L (3.5-5.1); Sodium 135 mmol/L (136-145)
[2022-09-15 16:48] LABS: NT Pro B Type Natriuretic Pept 12037 pg/mL (0-450)
[2022-09-15 16:51] LABS: Glucose Point of Care 414 mg/dL (70-110)
--- NOTE | 2022-09-15 19:34 | PC.NURSE ---
PT HAS HAD A DECENT SHIFT. PT HAD SOME MINIMAL COMPLAINTS OF CHEST PAIN THIS MORNING. BLOOD PRESSURES HAVE BEEN STABLE. THIS NURSE WAS ABLE TO TURN NITRO DRIP OFF AT 1100 AM. NITRO DRIP HAS NOT SINCE HAD TO BE TURNED BACK ON. PT HAS ONLY HAD ONE COMPLAINT OF CHEST PRESSURE SINCE THEN BUT IT WENT AWAY SHORTLY AFTER. PT IS RESTING IN BED AND HAS HAD VISITORS AT BEDSIDE MOST OF THE DAY. PT HAS NO REQUESTS AT THIS TIME. REPORT GIVEN TO CNA WALTERS. ALL QUESTIONS ANSWERED. CARE HAS BEEN TURNED OVER TO THIS NURSE.
[2022-09-15] MEDS: lisinopril 20 mg Tablet PO (20:29)
[2022-09-15] MEDS: aspirin 81 mg EC Tablet PO (20:30)
[2022-09-15 20:49] LABS: Glucose Point of Care 356 mg/dL (70-110)
[2022-09-15] MEDS: insulin glargine 100 units/1 mL 80 UNIT SUBCUT (20:49)
[2022-09-15 21:02] LABS: Partial Thromboplastin Time 35.5 SECONDS (23.9-36.7)
--- NOTE | 2022-09-15 23:22 | PC.NURSE ---
2229 Pt complained of SOB and chest pressure. Nitro gtt restarted 10mcg/min and MD was notified. 2249 Pt was reassessed and found to have an increase in pain 8/10 on chest, SOB with audible wheezing, and pressure radiating to back. MD notified and nitro was increased to 30mcg/min. 2308 Morphine PRN order was received and given. 2325 patient reassessed pain 5/10. No signs SOB or wheezing. pt appears more relaxed playing on phone.
[2022-09-16] VITALS (92 sets, daily range): BP systolic 69–192; BP diastolic 56–106; PULSE 57–103; RESP 10–25; TEMP 36.6–36.9; O2SAT 88–100; BMI 28.4
[2022-09-16 02:55] LABS: Basophils % 0.2 %; Eosinophils # 0.1 10^3/uL (0.0-0.8); Eosinophils % 0.7 %; Hematocrit 27.9 % (37.0-47.0); Hemoglobin 8.9 g/dL (11.5-15.3); Lymphocytes # 3.8 10^3/uL (0.8-4.8); Lymphocytes % 25.4 %; Mean Corpuscular HGB Conc 31.9 g/dL (30.0-36.0); Mean Corpuscular Hemoglobin 30.4 pg (28.0-34.0); Mean Corpuscular Volume 95.2 fl (81-99); Mean Platelet Volume 10.9 fL (7.4-10.4); Monocytes # 1.1 10^3/uL (0.2-0.9); Monocytes % 7.3 %; Neutrophils # 9.76 10^3/uL (1.8-7.7); Neutrophils % 65.1 %; Nucleated Red Blood Cells % 0 %; Platelet Count 404 10^3/cmm (130-400); Red Blood Count 2.93 10^6/uL (4.1-5.3); Red Cell Distribution Width 15.3 % (12.1-15.1)
[2022-09-16] MEDS: morphine 4 mg/mL SDV 1 mL 2 MG IVP (03:08)
[2022-09-16 03:12] LABS: Alanine Aminotransferase 15 U/L (0-33); Albumin Level 3.1 g/dL (3.5-5.2); Alkaline Phosphatase 61 U/L (35-105); Anion Gap 11.8 (5-19); Aspartate Amino Transferase 10 U/L (0-32); Blood Urea Nitrogen 34 mg/dL (8-23); Calcium 8.4 mg/dL (8.5-10.5); Carbon Dioxide 26 mmol/L (22-29); Chloride 99 mmol/L (98-107); Globulin 2.5 g/dL (1.3-4.6); Glucose 243 mg/dL (65-115); Magnesium 1.8 mg/dL (1.7-2.3); Osmolality Calculated 292 mOsm/kg (285-295); Partial Thromboplastin Time 110.9 SECONDS (23.9-36.7); Potassium 3.8 mmol/L (3.5-5.1); Sodium 133 mmol/L (136-145); Total Bilirubin 0.2 mg/dL (0.15-1.2); Total Protein 5.6 g/dL (6.6-8.7)
[2022-09-16 03:24] LABS: NT Pro B Type Natriuretic Pept 14233 pg/mL (0-450)
[2022-09-16] MEDS: heparin drip 25,000 UNIT/500 ML PREMIX 17 UNIT IV (03:28)
[2022-09-16] MEDS: HYDROcodone-acetaminophen 5-325 mg Tablet 1 TAB PO ×2 (07:11→17:42)
[2022-09-16 08:11] LABS: Glucose Point of Care 97 mg/dL (70-110)
[2022-09-16] MEDS: sucralfate 1 gm Tablet PO ×2 (08:14→20:36)
[2022-09-16] MEDS: metoprolol tartrate 50 mg Tablet PO ×2 (08:14→20:36)
[2022-09-16] MEDS: atorvastatin 40 mg Tablet 80 MG PO (08:14)
[2022-09-16] MEDS: pantoprazole 40 mg SDV IVP ×2 (08:15→20:35)
[2022-09-16 09:12] LABS: Glucose Point of Care 67 mg/dL (70-110)
--- NOTE | 2022-09-16 09:12 | PC.NURSE ---
Patient reported that she feels like her blood sugar is getting low. THis morning it was 97. Nurse rechecked it now and it was 69. Nurse gave patient 4oz of apple juice.
[2022-09-16] MEDS: dextrose 50% syringe 50 mL IVP (09:24)
[2022-09-16] MEDS: clopidogrel 75 mg Tablet PO (09:39)
[2022-09-16] MEDS: magnesium lactate 84 mg Tablet PO (09:40)
[2022-09-16] MEDS: FUROsemide 10 mg/mL SDV 2mL 20 MG IVP ×2 (09:40→20:40)
--- NOTE | 2022-09-16 10:18 | PC.NURSE ---
WHile giving the patient apple juice, her mental status became aletered and she was having trouble finishing the drink. Due to altered mental status and symptomatic hypoglycemia, nurse administered 1 amp of d50 per protocol. Family reports that when her BG is in the 70's she will get an altered mental status. After giving D50 nurse alerted Dr marquez. Dr marquez ordered to hold the d5w which would normally be given per protocol. WIthin 10 minutes, the patient's mental status improved back to baseline and she reports no symptoms. Recheck of BG 30 minutes after d50 was given shows it is now 197.
[2022-09-16 10:24] LABS: Glucose Point of Care 197 mg/dL (70-110)
[2022-09-16 10:49] LABS: Partial Thromboplastin Time 57.1 SECONDS (23.9-36.7)
[2022-09-16 11:07] LABS: Add Urine Microscopic? NO; Charge for UA Resulting for Rev
[2022-09-16 11:10] LABS: Bilirubin Urine Neg (Negative); Blood Urine Neg (Negative); Glucose Urine UA 1+ (Normal); Ketones Urine Negative (Negative); Leukocyte Esterase Urine Negative (Negative); Nitrate Urine Negative (Negative); Protein Urine Neg (Negative); Specific Gravity, Urine 1.005 (1.005-1.030); Urine Appearance Clear (CLEAR); Urine Color Colorless (Yellow); Urobilinogen Urine Norm (Negative); pH Urine 6 (5-7)
[2022-09-16] MEDS: insulin lispro 100 unit/1 mL SUBCUT ×2 (12:55→17:58)
[2022-09-16 13:20] LABS: Glucose Point of Care 211 mg/dL (70-110)
--- NOTE | 2022-09-16 14:13 | P.PN_ITS ---
Subjective Subjective: Patient's renal function is improving with the diuresis. Diuresing well. Denies chest pain this morning. Vitals/I&O/Wt Last Vital Signs Temp 98.1 F 09/16/22 13:00 Pulse 75 09/16/22 14:00 Resp 18 09/16/22 08:45 BP 148/74 09/16/22 14:00 Pulse Ox 97 09/16/22 14:00 O2 Del Method 09/16/22 13:00 O2 Flow Rate 3 09/16/22 06:00 09/15/22 09/16/22 09/16/22 22:59 06:59 14:59 Intake Total 312.05 / 913.75 531.192 / 1444.942 320.5 / 320.5 Output Total 2780 / 2780 850 / 3630 1500 / 1500 Balance -2467.95 / -1866.25 -318.808 / -2185.058 -1179.5 / -1179.5 Weight last 48 hrs Weight 155 lb 6.4 oz Weight 156 lb 9.6 oz Weight 163 lb Physical Exam Narrative: GENERAL: Patient is alert, awake and oriented x3. [] NECK: No jugular vein distension. [] HEENT: No cyanosis. No icterus. No pallor. [] HEART: Regular S1 and S2. No murmur, rub or gallop. [] LUNGS: Clear to auscultate bilaterally. [] ABDOMEN: Soft CENTRAL NERVOUS SYSTEM: Grossly nonfocal. [] EXTREMITIES: Lower extremities with 1+ edema bilaterally. Pulses palpable in the lower extremities, both dorsalis pedis and posterior tibial. [] Urinary Catheter Management: Cisneros: Cath Placed During This Visit: yes Reason for Continuing Indwelling Catheter: Accurate Measurement of Urinary Output in Critically Ill Patients Urinary Catheter Date of Insertion: 09/14/22 Urinary Catheter Time of Insertion: 23:56 Data 09/16/22 02:40 09/16/22 02:40 A&P Assessment and plan (1) CHF exacerbation: (2) Chest pain: (3) ASHD (arteriosclerotic heart disease): Plan Renal function is improving. Continue aggressive diuresis. Limited echocardiogram demonstrates no significant change in LV systolic function compared to before. Low-sodium diet. Strict I&O's Thank you for involving us with care of this patient. We will continue to follow. Please call with questions. Attestations Medical Necessity Statement*: Care expected to cross 2 midnights Coding Level of Care Code Acute Social Contact Worker for [facility] Fwd Diagnoses CHF exacerbation I50.9 Chest pain R07.9 ASHD (arteriosclerotic heart disease) I25.10
--- NOTE | 2022-09-16 14:34 | PM.PN ---
Subjective Subjective: Patient was seen this morning, she is sitting up to the side of the bed, she feels a lot better, her shortness of breath has improved, she did have some recurrent chest pain overnight, requiring nitroglycerin drip to be restarted, but none this morning Vitals/I&O/Wt Last Vital Signs Temp 98.1 F 09/16/22 13:00 Pulse 75 09/16/22 14:00 Resp 18 09/16/22 08:45 BP 148/74 09/16/22 14:00 Pulse Ox 97 09/16/22 14:00 O2 Del Method 09/16/22 13:00 O2 Flow Rate 3 09/16/22 06:00 09/15/22 09/16/22 09/16/22 22:59 06:59 14:59 Intake Total 312.05 / 913.75 531.192 / 1444.942 320.5 / 320.5 Output Total 2780 / 2780 850 / 3630 1500 / 1500 Balance -2467.95 / -1866.25 -318.808 / -2185.058 -1179.5 / -1179.5 Weight last 48 hrs Weight 70.488 kg Weight 71.033 kg Weight 73.936 kg Physical Exam Const: COMMON NORMALS: no acute distress and patient oriented x3 Resp: COMMON NORMALS: normal respiratory effort, No retractions, No use of accessory muscles and clear to auscultation bilaterally AUSCULTATION: clear to auscultation bilaterally Cardio: COMMON NORMALS: regular rate, regular rhythm, S1 normal heart sound present and S2 normal heart sound present RATE: regular rate RHYTHM: regular rhythm HEART SOUNDS: S1 normal heart sound present and S2 normal heart sound present GI: COMMON NORMALS: Normal to inspection, nondistended, normoactive bowel sounds present and non-tender Extremity: COMMON NORMALS: no pedal edema Neuro: COMMON NORMALS: patient oriented x3 Psych: COMMON NORMALS: mental status grossly normal Urinary Catheter Management: Cisneros: Cath Placed During This Visit: yes Reason for Continuing Indwelling Catheter: Accurate Measurement of Urinary Output in Critically Ill Patients Urinary Catheter Date of Insertion: 09/14/22 Urinary Catheter Time of Insertion: 23:56 Data 09/16/22 02:40 09/16/22 02:40 A&P Assessment and plan (1) ACS (acute coronary syndrome): (2) CHF exacerbation: (3) Leukocytosis: Plan Acute coronary syndrome Persistent chest pain Acute CHF exacerbation, systolic and diastolic CHF exacerbation, acute, clinical signs of fluid overload Acute heparin drip for at least 48 hours, wean off nitroglycerin drip Cardiology consulted Cardiac diet First troponin greater than 350, 6-hour 303, delta 54 BNP 5800 Lasix 20 mg IV push every 24 hours Currently requiring 2 L of oxygen Alert oriented x3 Hypertensive emergency, continue home metoprolol She has not missed any of her medications she is compliant with aspirin and Plavix I will put atorvastatin Lasix for fluid overload, venous ultrasound negative for DVT Holding off on coronary angiogram for now Echocardiogram shows an EF of 45 to 50%, no significant regional wall motion abnormalities AMY on CKD, improving with diuresis, likely cardiorenal syndrome, continue Acute on chronic anemia, monitor hemoglobin, Protonix, Carafate Leukocytosis, etiology unclear, chest x-ray no pneumonia, follow UA, Pro-Bassam, CRP Patient is DNR/DNI goals of care discussed with the patient, her and the daughter Attestations Medical Necessity Statement*: Patient requires hospitalization for CHF exacerbation, fluid overload, leukocytosis Coding Level of Care Code Acute Front Window Cashier for [facility] Diagnoses ACS (acute coronary syndrome) I24.9 CHF exacerbation I50.9 Leukocytosis D72.829
[2022-09-16 15:44] LABS: C Reactive Protein 5.4 mg/L (0.0-4.9)
[2022-09-16 15:50] LABS: Procalcitonin 0.08 ng/mL (0-0.5)
[2022-09-16] MEDS: cefTRIAXone 1,000 MG in sodium chloride 0.9% (plus) 50 ML 100 MG IV (17:37)
[2022-09-16] MEDS: azithromycin 500 MG in sodium chloride 0.9% 250 ML 250 MG IV (17:38)
[2022-09-16 17:57] LABS: Glucose Point of Care 226 mg/dL (70-110)
--- NOTE | 2022-09-16 18:39 | PC.NURSE ---
SHift SUmmary: Uneventful shift. Nitro was turned off this morning per titration protocol. No recurrent chest pain has occurred. Heparin has been changed to lovenox. Up to a chair multiple time and walked with PT. 2500mL of urine output.
[2022-09-16 20:26] LABS: Adenovirus Not Detected (NOT DETECT); Chlamydia Pneumoniae Not Detected (NOT DETECT); Coronavirus 229E,HKU1,NL63,OC4 Not Detected (NOT DETECT); Human Metapneumovirus Not Detected (NOT DETECT); Human Rhinovirus/Enterovirus Not Detected (NOT DETECT); Influenza A Not Detected (NOT DETECT); Influenza A H1 Not Detected (NOT DETECT); Influenza A H1-2009 Not Detected (NOT DETECT); Influenza A H3 Not Detected (NOT DETECT); Influenza B Not Detected (NOT DETECT); Mycoplasma Pneumoniae Not Detected (NOT DETECT); Parainfluenza Virus Type 1 Not Detected (NOT DETECT); Parainfluenza Virus Type 2 Not Detected (NOT DETECT); Parainfluenza Virus Type 3 Not Detected (NOT DETECT); Parainfluenza Virus Type 4 Not Detected (NOT DETECT); Respiratory Syncytial Virus A Not Detected (NOT DETECT); Respiratory Syncytial Virus B Not Detected (NOT DETECT); SARS-COV-2 Not Detected (NOT DETECT)
[2022-09-16] MEDS: insulin glargine 100 units/1 mL 80 UNIT SUBCUT (20:34)
[2022-09-16 20:35] LABS: Glucose Point of Care 300 mg/dL (70-110)
[2022-09-16] MEDS: lisinopril 20 mg Tablet PO (20:36)
[2022-09-16] MEDS: aspirin 81 mg EC Tablet PO (20:36)
[2022-09-17] VITALS (22 sets, daily range): BP systolic 111–153; BP diastolic 63–108; PULSE 74–95; RESP 16–17; TEMP 36.1; O2SAT 91–100
[2022-09-17] MEDS: morphine 4 mg/mL SDV 1 mL 2 MG IVP (00:18)
[2022-09-17 00:26] LABS: Glucose Point of Care 182 mg/dL (70-110)
[2022-09-17 03:02] LABS: Basophils # 0.1 10^3/uL (0.0-0.1); Basophils % 0.5 %; Eosinophils # 0.2 10^3/uL (0.0-0.8); Hematocrit 32.7 % (37.0-47.0); Hemoglobin 10.5 g/dL (11.5-15.3); Lymphocytes # 3.5 10^3/uL (0.8-4.8); Lymphocytes % 33.2 %; Mean Corpuscular HGB Conc 32.1 g/dL (30.0-36.0); Mean Corpuscular Hemoglobin 30.1 pg (28.0-34.0); Mean Corpuscular Volume 93.7 fl (81-99); Mean Platelet Volume 10.7 fL (7.4-10.4); Monocytes # 0.8 10^3/uL (0.2-0.9); Monocytes % 7.3 %; Neutrophils % 56.1 %; Nucleated Red Blood Cells % 0 %; Platelet Count 436 10^3/cmm (130-400); Red Blood Count 3.49 10^6/uL (4.1-5.3); Red Cell Distribution Width 14.8 % (12.1-15.1); White Blood Count 10.5 10^3/uL (4.0-10.0)
[2022-09-17 03:43] LABS: Alanine Aminotransferase 13 U/L (0-33); Albumin Level 3.1 g/dL (3.5-5.2); Alkaline Phosphatase 66 U/L (35-105); Aspartate Amino Transferase 8 U/L (0-32); Blood Urea Nitrogen 28 mg/dL (8-23); Calcium 8.9 mg/dL (8.5-10.5); Carbon Dioxide 31 mmol/L (22-29); Chloride 95 mmol/L (98-107); Globulin 3.3 g/dL (1.3-4.6); Glucose 125 mg/dL (65-115); Magnesium 1.7 mg/dL (1.7-2.3); NT Pro B Type Natriuretic Pept 16246 pg/mL (0-450); Osmolality Calculated 289 mOsm/kg (285-295); Sodium 136 mmol/L (136-145); Total Bilirubin 0.2 mg/dL (0.15-1.2); Total Protein 6.4 g/dL (6.6-8.7)
[2022-09-17] MEDS: enoxaparin 40 mg/0.4 mL Syringe SUBCUT (06:18)
[2022-09-17 06:36] LABS: Glucose Point of Care 61 mg/dL (70-110)
[2022-09-17 06:46] LABS: Glucose Point of Care 84 mg/dL (70-110)
--- NOTE | 2022-09-17 08:25 | PM.PN ---
Subjective Subjective: Patient is doing well. no complaints of chest pain. Vitals/I&O/Wt Last Vital Signs Temp 96.9 F L 09/17/22 06:00 Pulse 81 09/17/22 06:00 Resp 16 09/17/22 00:18 BP 131/74 09/17/22 06:00 Pulse Ox 94 09/17/22 06:00 O2 Del Method 09/16/22 20:05 O2 Flow Rate 3 09/16/22 06:00 09/16/22 09/17/22 09/17/22 22:59 06:59 14:59 Intake Total 513.067 / 835.317 Output Total 3050 / 4550 1550 / 6100 Balance -2536.933 / -3714.683 -1550 / -5264.683 Weight last 48 hrs Weight 139 lb 14.4 oz Weight 155 lb 6.4 oz Physical Exam Narrative: GENERAL: Patient is alert, awake and oriented x3. [] NECK: No jugular vein distension. [] HEENT: No cyanosis. No icterus. No pallor. [] HEART: Regular S1 and S2. No murmur, rub or gallop. [] LUNGS: Clear to auscultate bilaterally. [] ABDOMEN: Soft CENTRAL NERVOUS SYSTEM: Grossly nonfocal. [] EXTREMITIES: Lower extremities with 1+ edema bilaterally. Pulses palpable in the lower extremities, both dorsalis pedis and posterior tibial. [] Urinary Catheter Management: Cisneros: Cath Placed During This Visit: yes Reason for Continuing Indwelling Catheter: Accurate Measurement of Urinary Output in Critically Ill Patients Urinary Catheter Date of Insertion: 09/14/22 Urinary Catheter Time of Insertion: 23:56 Data 09/17/22 02:06 09/17/22 02:06 Micro: Microbiology 09/16/22 21:38 Blood Culture - Preliminary Blood SPECIMEN COLLECTED 09/16/22 14:52 Blood Culture - Preliminary Blood SPECIMEN COLLECTED A&P Assessment and plan (1) CHF exacerbation: (2) Chest pain: (3) ASHD (arteriosclerotic heart disease): Plan Patient has diuresed very well. Renal function has improved and is at baseline. We will switch to Lasix to oral Lasix. She is stable to be discharged from cardiology standpoint with close cardiology follow-up. Daily weights and sodium and fluid restriction advised Thank you for involving us with care of this patient. Please call with questions. Attestations Medical Necessity Statement*: Care expected to cross 2 midnights. Coding Level of Care Code Acute Incising Machine Operator for [facility] Diagnoses CHF exacerbation I50.9 Chest pain R07.9 ASHD (arteriosclerotic heart disease) I25.10
[2022-09-17 08:58] LABS: Glucose Point of Care 205 mg/dL (70-110)
[2022-09-17 08:58] LABS: Glucose Point of Care 190 mg/dL (70-110)
[2022-09-17] MEDS: insulin lispro 100 unit/1 mL SUBCUT (09:00)
[2022-09-17] MEDS: atorvastatin 40 mg Tablet 80 MG PO (09:10)
[2022-09-17] MEDS: HYDROcodone-acetaminophen 5-325 mg Tablet 1 TAB PO (09:10)
[2022-09-17] MEDS: FUROsemide 10 mg/mL SDV 2mL 20 MG IVP (09:11)
[2022-09-17] MEDS: magnesium lactate 84 mg Tablet PO (09:11)
[2022-09-17] MEDS: sucralfate 1 gm Tablet PO (09:11)
[2022-09-17] MEDS: pantoprazole 40 mg SDV IVP (09:11)
[2022-09-17] MEDS: clopidogrel 75 mg Tablet PO (09:11)
[2022-09-17] MEDS: metoprolol tartrate 50 mg Tablet PO (09:11)
--- NOTE | 2022-09-17 09:38 | P.DS_ITS ---
Discharge Providers Date of Admission: 09/14/22 22:49 Date of Discharge: September 17, 2022 Attending Provider at Admission: Abbey Jacinto MD Attending Provider at Discharge: Johan Byrne MD Consults: Cardiology Primary Care Provider: Jane Strickland MD Diagnoses at Discharge Discharge Diagnosis (1) CHF exacerbation: Status: Acute (2) Chest pain: Status: Acute (3) ASHD (arteriosclerotic heart disease): Status: Acute (4) Community acquired pneumonia: Status: Acute Reason for Visit Reason for Visit: CHEST PAIN Hospital Course Hospital Course Eevlyn Farley is a 76-year-old female with a past medical history significant for coronary artery disease, diabetes mellitus, neuropathy, fibromyalgia, hyperlipidemia, hypertension, and NSTEMI who presented with chest pain, found to have acute on chronic exacerbation of diastolic heart failure with borderline ejection fraction, NSTEMI, pulmonary edema, and community-acquired pneumonia. Cardiology was consulted and followed. She was medically managed. There is no change in echocardiogram. Symptoms resolved. Per her pneumonia, she was treated with ceftriaxone azithromycin, transition to cefdinir and azithromycin at discharge. For her acute CHF exacerbation with pulmonary edema, she was treated with IV Lasix, and transition to oral Lasix at discharge. She is to follow-up with her primary care provider as well as cardiology in clinic. Physical Exam Narrative: General: Patient is awake and alert. Head: Normocephalic. Atraumatic. EOM intact. Neck: No JVD. Cardiovascular: RRR. No gallops. No murmurs. No peripheral edema. Lungs: Clear to auscultation, no use of accessory muscles, no crackles or wheezes. Skin: No jaundice. No rashes. Abdomen: Normal bowel sounds, abdomen soft and nontender. Genito Urinary: Genital exam not performed since complaints not related. Rectal: Rectal exam not performed since no symptoms indicated blood loss. Extremities: No cyanosis or clubbing. Musculoskeletal: 5/5 strength, normal range of motion, no swollen or erythematous joints. Neurological: Moves all 4 extremities. No myoclonus. Urinary Catheter Management: Cisneros: Cath Placed During This Visit: yes Reason for Continuing Indwelling Catheter: Accurate Measurement of Urinary Output in Critically Ill Patients Urinary Catheter Date of Insertion: 09/14/22 Urinary Catheter Time of Insertion: 23:56 Discharge Data Studies Completed and Pending Completed Studies During Hospitalization Category Date Time Status XR chest 1V portable [id number] Stat Exams 09/14/22 22:31 [place] [id number] Routine Ultrasound 09/15/22 14:04 Completed CV. echo limited [id number] Routine Ultrasound 09/15/22 08:02 Completed Pending at discharge Category Date Time Status Blood Culture Stat Lab 09/16/22 21:38 Results Complete Blood Count w/Auto AM LABS Lab 09/18/22 04:00 Ordered Comprehensive Metabolic Panel AM LABS Lab 09/18/22 04:00 Ordered Magnesium AM LABS Lab 09/18/22 04:00 Ordered NT Pro B Type Natriuretic Pept QAM Lab 09/18/22 06:00 Ordered Occult Blood Stool [Immunochemical Fecal OCB] Routine Lab 09/15/22 08:13 Uncollected Sputum Culture and Gram Stain Stat Lab 09/16/22 17:23 Uncollected Urine Culture Stat Lab 09/16/22 11:00 Received Radiology Impressions Chest X-Ray 09/14/22 22:31 IMPRESSION: Probable pulmonary edema. Venous Duplex 09/15/22 14:04 IMPRESSION: No evidence of deep vein thrombosis. Laboratory Results WBC 10.5 10^3/uL (4.0-10.0) H 09/17/22 02:06 RBC 3.49 10^6/uL (4.1-5.3) L 09/17/22 02:06 Hgb 10.5 g/dL (11.5-15.3) L 09/17/22 02:06 Hct 32.7 % (37.0-47.0) L 09/17/22 02:06 MCV 93.7 fl (81-99) 09/17/22 02:06 MCH 30.1 pg (28.0-34.0) 09/17/22 02:06 MCHC 32.1 g/dL (30.0-36.0) 09/17/22 02:06 RDW 14.8 % (12.1-15.1) 09/17/22 02:06 Plt Count 436 10^3/cmm (130-400) H 09/17/22 02:06 MPV 10.7 fL (7.4-10.4) H 09/17/22 02:06 Neut % (Auto) 56.1 % 09/17/22 02:06 Lymph % (Auto) 33.2 % 09/17/22 02:06 [place] % (Auto) 7.3 % 09/17/22 02:06 Eos % (Auto) 2.0 % 09/17/22 02:06 Baso % (Auto) 0.5 % 09/17/22 02:06 Reticulocyte % (Auto) 2.6 % (0.5-2.0) H 09/15/22 03:12 Neut # (Auto) 5.90 10^3/uL (1.8-7.7) 09/17/22 02:06 Lymph # (Auto) 3.5 10^3/uL (0.8-4.8) 09/17/22 02:06 [place] # (Auto) 0.8 10^3/uL (0.2-0.9) 09/17/22 02:06 Eos # (Auto) 0.2 10^3/uL (0.0-0.8) 09/17/22 02:06 Baso # (Auto) 0.1 10^3/uL (0.0-0.1) 09/17/22 02:06 Nucleated RBC % (auto) 0 % 09/17/22 02:06 Nucleated RBCs # 0.0 /100WBC 09/17/22 02:06 APTT 57.1 SECONDS (23.9-36.7) H 09/16/22 08:49 Sodium 136 mmol/L (136-145) 09/17/22 02:06 Potassium 3.0 mmol/L (3.5-5.1) L 09/17/22 02:06 Chloride 95 mmol/L (98-107) L 09/17/22 02:06 Carbon Dioxide 31 mmol/L (22-29) H 09/17/22 02:06 Anion Gap 13.0 (5-19) 09/17/22 02:06 BUN 28 mg/dL (8-23) H 09/17/22 02:06 Creatinine 1.2 mg/dL (0.5-0.9) H 09/17/22 02:06 GFR Calculation Not Reportable 09/17/22 02:06 Glucose 125 mg/dL (65-115) H 09/17/22 02:06 POC Glucose 205 mg/dL (70-110) H 09/17/22 08:55 Calculated Osmolality 289 mOsm/kg (285-295) 09/17/22 02:06 Calcium 8.9 mg/dL (8.5-10.5) 09/17/22 02:06 Magnesium 1.7 mg/dL (1.7-2.3) 09/17/22 02:06 Iron 63 ug/dL (37-145) 09/15/22 07:00 Ferritin 99 ng/mL (15-150) 09/15/22 07:00 Total Bilirubin 0.2 mg/dL (0.15-1.2) 09/17/22 02:06 AST 8 U/L (0-32) 09/17/22 02:06 ALT 13 U/L (0-33) 09/17/22 02:06 Alkaline Phosphatase 66 U/L (35-105) 09/17/22 02:06 Troponin T Baseline 358 ng/L (0-10) H* 09/14/22 21:35 Troponin T 120 Minute 341.2 ng/L (0-10) H 09/14/22 23:29 Delta Troponin T -16.8 ABS# (0-10) L 09/14/22 23:29 Troponin T Hi Sens 6Hr 303.7 ng/L (0-10) H 09/15/22 03:12 Troponin T Hi Sens 6Hr Delta -54.3 ng/L (0-12) L 09/15/22 03:12 C-Reactive Protein 5.4 mg/L (0.0-4.9) H 09/16/22 14:58 NT-Pro-B Natriuret Pep 79179 pg/mL (0-450) H 09/17/22 02:06 Total Protein 6.4 g/dL (6.6-8.7) L 09/17/22 02:06 Albumin 3.1 g/dL (3.5-5.2) L 09/17/22 02:06 Globulin 3.3 g/dL (1.3-4.6) 09/17/22 02:06 Lipase 22 U/L (13-60) 09/14/22 21:35 Procalcitonin 0.08 ng/mL (0-0.5) 09/16/22 14:58 Urine Color Colorless (Yellow) 09/16/22 11:00 Urine Appearance Clear (CLEAR) 09/16/22 11:00 Urine pH 6 (5-7) 09/16/22 11:00 Ur Specific [place] 1.005 (1.005-1.030) 09/16/22 11:00 Urine Protein Neg (Negative) 09/16/22 11:00 Urine Glucose (UA) 1+ (Normal) H 09/16/22 11:00 Urine Ketones Negative (Negative) 09/16/22 11:00 Urine Blood Neg (Negative) 09/16/22 11:00 Urine Nitrate Negative (Negative) 09/16/22 11:00 Urine Bilirubin Neg (Negative) 09/16/22 11:00 Urine Urobilinogen Norm mg/dL (Negative) 09/16/22 11:00 Ur Leukocyte Esterase Negative (Negative) 09/16/22 11:00 Coronavirus 229E (PCR) Not detected (NOT DETECT) 09/16/22 18:27 SARS-CoV-2 (PCR) Not detected (NOT DETECT) 09/16/22 18:27 Vitals Last Vital Signs Temp 96.9 F L 09/17/22 06:00 Pulse 84 09/17/22 09:00 Resp 16 09/17/22 00:18 BP 151/64 09/17/22 09:00 Pulse Ox 96 09/17/22 09:00 O2 Del Method 09/16/22 20:05 O2 Flow Rate 3 09/16/22 06:00 Discharge Plan Discharge Patient Disposition: Home Condition: Stable Prescriptions: New cefdinir 300 mg capsule 300 mg PO BID 7 Days Qty: 14 0RF azithromycin 250 mg tablet 250 mg PO DAILY 5 Days Qty: 5 0RF Lasix 20 mg tablet 20 mg PO DAILY Qty: 30 0RF Continued Novolog Flexpen U-100 Insulin 100 unit/mL (3 mL) insulin pen 5 unit SUBCUT TID 30 Days Qty: 4.5 3RF (DME) blood-glucose meter Kit See Rx Instructions .ROUTE .MEDSUPPLY Qty: 1 0RF Rx Instructions: TEST 4 TIMES PER DAY (DME) Accu-Chek [place] Plus test strp Strip See Rx Instructions .ROUTE .MEDSUPPLY Qty: 100 0RF Rx Instructions: TEST QID hydrocodone-acetaminophen 5-325 mg tablet 1 tab PO BID PRN (Reason: pain) 60 Days Qty: 60 0RF (DME) pen needle, diabetic [TechLITE Pen Needle] 32 gauge x 5/32 needle See Rx Instructions .ROUTE .COMPLEX Qty: 100 1RF Dose Instruction: USE DIRECTED with insulin Rx Instructions: USE DIRECTED with insulin rosuvastatin 40 mg tablet 40 mg PO BEDTIME Qty: 30 3RF ramipril 5 mg capsule 10 mg PO BEDTIME Qty: 60 0RF multivitamin Tablet 1 tab PO QAM metoprolol tartrate 100 mg tablet 100 mg PO BID clopidogrel 75 mg Tablet 75 mg PO DAILY 30 Days Qty: 30 3RF isosorbide mononitrate 30 mg Tablet Extended Release 24 Hr 30 mg PO DAILY 30 Days Qty: 30 0RF nitroglycerin 0.4 mg tablet, sublingual 0.4 mg sublingual Q5M PRN (Reason: chest pain) Qty: 30 0RF Rx Instructions: do not exceed 3 doses per episode aspirin [Adult Low Dose Aspirin] 81 mg tablet,delayed release (DR/EC) 81 mg PO BEDTIME 30 Days Qty: 30 3RF omeprazole 20 mg Capsule,Delayed Release(Dr/Ec) 20 mg PO BID Levemir FlexTouch U-100 Insuln 100 unit/mL (3 mL) insulin pen 60 unit SUBCUT BID Discharge Orders: Discharge Order (Routine); Ordered 09/17/22 Ordered By: Johan Byrne Referrals: Sandip Sweet M.D [Physician] - 2 weeks Jane Strickland MD [Primary Care Provider] - 4-7 days Discharge Diet: Cardiac, Diabetic and Low Salt Discharge Activity: Resume usual activity and Increase activity as tolerated Patient Instructions: Opioid Safety Activity Restrictions/Additional Instructions: 1. Take medications as prescribed. 2. Follow up with PCP and cardiology. 3. Limit fluid intake to 2 liters per day 4. Weight yourself daily and keep weight log 5. Bring weight log to outpatient providers Discharge Attestations Time Spent in Discharge Care*: greater than 30 min Quality Metrics Clinical Quality Measures [ No reported AMI, CVA or VTE this stay] Coding Level of Care Code Acute g [facility] note Diagnoses CHF exacerbation I50.9 Chest pain R07.9 ASHD (arteriosclerotic heart disease) I25.10 Community acquired pneumonia J18.9
--- NOTE | 2022-09-17 11:21 | PC.NURSE ---
All D/C instructions educated to patient, patient signed d/c paper work, IVs removed
--- NOTE | 2022-09-17 12:45 | PC.SOCIAL ---
IMM Update pg 2 of IMM updated and reviewed w/ patient and her . Copy provided and Copy dated, initialed and placed in chart.
== END 2022-09-17 12:00 | disposition home or self-care (01) | DRG 280 ==
LOC: ER 23:02 → CSU 23:32 → ICU 09-15 02:49
PROVIDERS: Family Medicine; Internal Medicine; Admitting Provider Internal Medicine; Emergency Provider Emergency Medicine; PCP Family Medicine; Visit Provider Internal Medicine
DX: I13.0 Hypertensive heart and chronic kidney disease with heart failure and stage 1 through stage 4 chronic kidney disease, or unspecified chronic kidney disease (principal); I50.43 Acute on chronic combined systolic (congestive) and diastolic (congestive) heart failure; I21.4 Non-ST elevation (NSTEMI) myocardial infarction; J18.9 Pneumonia, unspecified organism; I22.2 Subsequent non-ST elevation (NSTEMI) myocardial infarction; I24.9 Acute ischemic heart disease, unspecified; N17.9 Acute kidney failure, unspecified; I16.1 Hypertensive emergency; N18.9 Chronic kidney disease, unspecified; E11.22 Type 2 diabetes mellitus with diabetic chronic kidney disease; I25.10 Atherosclerotic heart disease of native coronary artery without angina pectoris; Z95.5 Presence of coronary angioplasty implant and graft; E11.42 Type 2 diabetes mellitus with diabetic polyneuropathy; M79.7 Fibromyalgia; E78.5 Hyperlipidemia, unspecified; Z79.4 Long term (current) use of insulin; Z79.891 Long term (current) use of opiate analgesic; Z79.02 Long term (current) use of antithrombotics/antiplatelets; Z79.82 Long term (current) use of aspirin; Z91.041 Radiographic dye allergy status; D63.1 Anemia in chronic kidney disease; Z66 Do not resuscitate; F17.200 Nicotine dependence, unspecified, uncomplicated; F41.8 Other specified anxiety disorders
CPT/HCPCS: 36415; 36416; 51702; 71045; 80048; 80053; 81003; 82728; 82962; 83540; 83690; 83735; 83880; 84145; 84484; 85025; 85045; 85730; 86140; 87040; 87086; 87635; 93005; 93308; 93970; 96365; 96372; 96375; 96376; 97161; 99285; C9113; J0456; J0696; J1200; J1644; J1650; J1815; J1940; J2270; J2920; J3490; J7050

== ENCOUNTER 2022-11-22 11:48 | Inpatient (IN) | payer MEDICARE, OTHER, SELFPAY ==
[2022-11-22 11:51] VITALS: BP 147/86; PULSE 70; RESP 18; TEMP 36.7; O2SAT 98
--- NOTE | 2022-11-22 13:10 | ED_ITS ---
HPI - Abdominal Pain General: Chief Complaint: Abdominal Pain Stated Complaint: throwing up and stomach pain for 2 days Time Seen by Provider: 11/22/22 13:09 Limitations: other (Actively vomiting) History of Present Illness: Ms. Farley is a 77-year-old lady with history of CHF, insulin-dependent diabetic presenting to the emergency department for nausea, vomiting, abdominal pain and generalized illness. Patient is actively vomiting and only provides some clinical history. History mostly provided by patient's at bedside. Onset of symptoms yesterday and was subacute. Notes numerous episodes of nonbilious and nonbloody emesis associated with abdominal pain. Overall course of symptoms has worsened. Intensity is severe. Has had similar episodes in the past associated with DKA though blood sugar in the 200s earlier today. No other specific changes in health, exacerbating, or alleviating factors identified. Onset (ago): day(s) Pain Consistency: constant Location: Diffuse Severity: severe Exacerbating factors: nothing Relieving factors: nothing Associated Symptoms: Reports vomiting Review of Systems General: Reports: 10 or more systems reviewed and unremarkable except in HPI and below GI: Reports: vomiting PFSH ED PFSH: Medical History Abdominal pain Acidosis, lactic Anxiety and depression ASHD (arteriosclerotic heart disease) Cataracts, bilateral Chest pain CKD (chronic kidney disease) Colitis Diabetes Diabetic ketoacidosis Diabetic neuropathy Diabetic peripheral neuropathy DKA (diabetic ketoacidosis) Fibromyalgia Gastroparesis Gram-positive bacteremia Hyperlipidemia Hypertension Hypokalemia Hypophosphatemia Insomnia Intractable abdominal pain Intractable vomiting with nausea Left renal stone Left ureteral calculus Leukocytosis Migraine Nausea and vomiting NSTEMI (non-ST elevated myocardial infarction) Odynophagia Pyelonephritis Pyuria Shingles Ureterolithiasis Urolithiasis Yeast vaginitis Surgical History H/O angioplasty H/O carpal tunnel repair H/O: hysterectomy History of cholecystectomy S/P ureteral stent placement Family History Mother , at age 65 Heart attack Father , at age 63 Heart attack Other Diabetes Hypertension Social History Smoking and tobacco status: current every day smoker Second hand smoke exposure: No Alcohol intake: never Adopted: No Caregiver/support person: Yes (spouse) Lives independently: Yes Household members: spouse Marital status: service: No Current occupational status: retired History of recent travel: No Current gender identity: Female Special vandana needs: No Agree to transfusion: Yes Physical Exam Const: COMMON NORMALS: alert GENERAL APPEARANCE: cooperative, well developed and ill appearing HENMT: COMMON NORMALS: normocephalic and atraumatic HEAD & SCALP: normocephalic and atraumatic Eye: COMMON NORMALS: conjunctivae normal CONJUNCTIVA: Yes conjunctivae normal SCLERA: sclerae normal Neck/C-Spine: COMMON NORMALS: supple GENERAL: Yes trachea midline Resp: COMMON NORMALS: clear to auscultation bilaterally EFFORT & INSPECTION: Yes able to speak in complete sentences AUSCULTATION: clear to auscultation bilaterally Cardio: COMMON NORMALS: regular rate and regular rhythm RATE: regular rate RHYTHM: regular rhythm GI: COMMON NORMALS: Soft to palpation PALPATION: Yes Soft to palpation, Yes Tenderness to palpation present (GI), No Guarding due to palpation present (GI) and No Rigid due to palpation Extremity: GENERAL: Yes normal exam except as noted and No edema Neuro: COMMON NORMALS: moves all extremities SENSORIUM/ORIENTATION: Yes alert and No Orientation impaired Psych: COMMON NORMALS: mental status grossly normal and Normal thought process present THOUGHT PROCESS: Normal thought process present Course Vital Signs: Vital signs: Vital Signs Temperature 99.4 F 11/26/22 11:37 Pulse Rate 86 11/26/22 11:37 Respiratory Rate 18 11/26/22 11:37 Blood Pressure 114/63 11/26/22 11:37 Pulse Oximetry 97 11/26/22 11:37 Oxygen Delivery Me thod 11/26/22 11:37 Oxygen Flow Rate 2 11/25/22 08:00 MDM - Abdominal Pain Medical Decision Making 77-year-old lady presenting with GI symptoms and history of diabetes. Exam as above. Abdominal tenderness without evidence of acute surgical abdomen. EKG demonstrates sinus rhythm with right bundle branch block, PACs, no STEMI. Similar on repeat. Labs with mild leukocytosis, normal hemoglobin and platelet count. Metabolic panel with mild evidence of dehydration, there is hyperglycemia without evidence of DKA. Lactic acid is elevated. Negative range 2-hour delta troponin. No UTI. Ketones negative. CT demonstrates colitis with somewhat atypical right-sided appearance. Otherwise similar to prior. Patient treated with fluids, antibiotics, analgesia, antiemetic with modest improvement requiring repeat administration. Given severity of symptoms and laboratory derangements as well as CT findings patient is appropriate for inp atient management. Most likely etiology of symptoms is colitis. The results of ED evaluation were discussed with the patient including plan for admission due to requirement for level of care not available if discharged to prevent significant worsening/deterioration. Patient agreeable with plan. Discussed with hospitalist service who was agreeable to admit patient. Medical Records I reviewed the patient's medical records. Lab Data I reviewed the patient's lab results. 11/23/22 06:15 11/26/22 03:49 Labs/Radiology: Radiology Impressions Abdomen/Pelvis CT 11/22/22 14:06 IMPRESSION: 1. Diffuse colonic thickening compatible with colitis involving the RIGHT colon and transverse colon which normalizes at the splenic flexure. Splenic flexure and descending colon are normal. Normal sigmoid colon. Findings likely due to infectious, inflammatory or possibly ischemic colitis. This could be further evaluated with CTA. 2. No free air or portal venous air. 3. Basim mesentery with prominent central mesenteric lymph nodes unchanged since 2021. 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 Recommend continued surveillance. 4. Small esophageal hiatal hernia. 5. Cortical scarring both kidneys. No hydronephrosis. 6. Rectosigmoid constipation. 7. No other acute findings Notified Shakeel Fontenot MD at 11/22/2022 3:50 PM. KUB X-Ray 11/24/22 10:30 IMPRESSION: 1. Cluster of calcifications in the right flank correspond to calculi and right renal parenchymal calcifications. 2. Normal bowel gas pattern 3. Mild stool burden. Abdomen/Pelvis CTA 11/25/22 09:14 IMPRESSION: 1. No hemodynamically significant visceral arterial stenosis or occlusion. 2. No sign of colonic inflammation. 3. Mesenteric edema and prominent lymph nodes (basim mesentery), stable since 07/05/2022. 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 Differential diagnosis includes edema related to liver, cardiac, or renal disease, mesenteric inflammation secondary to organ or bowel inflammation, or mesenteric lymphedema. This finding can also be an early manifestation of lymphoma. 4. Incidental findings above. Laboratory Results WBC 13.4 10^3/uL (4.0-10.0) H 11/23/22 06:15 RBC 4.08 10^6/uL (4.1-5.3) L 11/23/22 06:15 Hgb 12.3 g/dL (11.5-15.3) 11/23/22 06:15 Hct 36.6 % (37.0-47.0) L 11/23/22 06:15 MCV 89.7 fl (81-99) 11/23/22 06:15 MCH 30.1 pg (28.0-34.0) 11/23/22 06:15 MCHC 33.6 g/dL (30.0-36.0) 11/23/22 06:15 RDW 12.6 % (12.1-15.1) 11/23/22 06:15 Plt Count 379 10^3/cmm (130-400) D 11/23/22 06:15 MPV 11.0 fL (7.4-10.4) H 11/23/22 06:15 Neut % (Auto) 86.7 % 11/23/22 06:15 Lymph % (Auto) 9.1 % 11/23/22 06:15 [place] % (Auto) 3.7 % 11/23/22 06:15 Eos % (Auto) 0.0 % 11/23/22 06:15 Baso % (Auto) 0.1 % 11/23/22 06:15 Neut # (Auto) 11.60 10^3/uL (1.8-7.7) H 11/23/22 06:15 Lymph # (Auto) 1.2 10^3/uL (0.8-4.8) 11/23/22 06:15 [place] # (Auto) 0.5 10^3/uL (0.2-0.9) 11/23/22 06:15 Eos # (Auto) 0.0 10^3/uL (0.0-0.8) 11/23/22 06:15 Baso # (Auto) 0.0 10^3/uL (0.0-0.1) 11/23/22 06:15 Nucleated RBC % (auto) 0 % 11/23/22 06:15 Nucleated RBCs # 0.0 /100WBC 11/23/22 06:15 D-Dimer 0.55 ug/mIFEU (0-0.59) 11/22/22 14:25 Specimen Type Arterial 11/22/22 13:32 Sample Site Radial, left 11/22/22 13:32 ABG pH 7.41 (7.35-7.45) 11/22/22 13:32 ABG pCO2 39.1 mmHg (35-45) 11/22/22 13:32 ABG pO2 106.0 mmHg (80.0-100.0) H 11/22/22 13:32 ABG HCO3 24.6 mmol/L (22-26) 11/22/22 13:32 ABG O2 Saturation 98.0 11/22/22 13:32 ABG Base Excess 0.0 mmol/L (-2.0-2.0) 11/22/22 13:32 Antonio Test Pos 11/22/22 13:32 A-a O2 Gradient Not Reportable 11/22/22 13:32 Hematocrit 36.8 % (37-47) L 11/22/22 13:32 Hgb O2 Saturation 97.0 % (95-100) 11/22/22 13:32 Carboxyhemoglobin 0.7 %THgb (0.4-20.1) 11/22/22 13:32 Methemoglobin 0.4 % (0.4-1.5) 11/22/22 13:32 Total Hemoglobin 12.0 g/dL (12-16) 11/22/22 13:32 Sodium 139.0 mmol/L (131-143) 11/22/22 13:32 Potassium 3.8 mmol/L (3.5-5.0) 11/22/22 13:32 Glucose 370.0 mg/dL (70-115) H 11/22/22 13:32 Ionized Calcium 1.3 mmol/L (1.1-1.4) 11/22/22 13:32 O2 Delivery Device None 11/22/22 13:32 FiO2 21.0 % 11/22/22 13:32 Airplane Tube Builder ID [place] 11/22/22 13:32 Sodium 137 mmol/L (136-145) 11/23/22 06:15 Potassium 3.8 mmol/L (3.5-5.1) 11/23/22 06:15 Chloride 94 mmol/L (98-107) L 11/23/22 06:15 Carbon Dioxide 19 mmol/L (22-29) L 11/23/22 06:15 Anion Gap 27.8 (5-19) H 11/23/22 06:15 BUN 30 mg/dL (8-23) H 11/23/22 06:15 Creatinine 1.2 mg/dL (0.5-0.9) H 11/23/22 06:15 GFR Calculation Not Reportable 11/23/22 06:15 Glucose 559 mg/dL (65-115) H* 11/23/22 06:15 POC Glucose 531 mg/dL (70-110) H* 11/23/22 07:00 Estimat Average Glucose 174 11/23/22 06:15 Hemoglobin A1c 7.7 % (4.0-6.0) H 11/23/22 06:15 Calculated Osmolality 316 mOsm/kg (285-295) H 11/23/22 06:15 Lactic Acid 3.0 mmol/L (0.5-2.2) H 11/22/22 14:25 Lactic Acid (Sepsis) 3.2 mmol/L (0.5-2.2) H 11/22/22 16:43 Lactate 2.8 mmol/L (0.5-2.2) H 11/23/22 06:15 Calcium 9.7 mg/dL (8.5-10.5) 11/23/22 06:15 Phosphorus 4.1 mg/dL (2.5-4.5) 11/23/22 06:15 Magnesium 2.0 mg/dL (1.7-2.3) 11/23/22 06:15 Total Bilirubin 0.7 mg/dL (0.15-1.2) 11/22/22 14:25 AST 14 U/L (0-32) 11/22/22 14:25 ALT 13 U/L (0-33) 11/22/22 14:25 Alkaline Phosphatase 100 U/L (35-105) 11/22/22 14:25 Troponin T Baseline 12 ng/L (0-10) H 11/22/22 14:25 Troponin T 120 Minute 11.88 ng/L (0-10) H 11/22/22 16:43 Delta Troponin T -0.12 ABS# (0-10) L 11/22/22 16:43 C-Reactive Protein 12.4 mg/L (0.0-4.9) H 11/23/22 06:15 Total Protein 7.1 g/dL (6.6-8.7) 11/22/22 14:25 Albumin 4.3 g/dL (3.5-5.2) 11/22/22 14:25 Globulin 2.8 g/dL (1.3-4.6) 11/22/22 14:25 Lipase 16 U/L (13-60) 11/22/22 14:25 Urine Color Yellow (Yellow) 11/22/22 13:39 Urine Appearance Clear (CLEAR) 11/22/22 13:39 Urine pH 6 (5-7) 11/22/22 13:39 Ur Specific [place] 1.015 (1.005-1.030) 11/22/22 13:39 Urine Protein 1+ (Negative) H 11/22/22 13:39 Urine Glucose (UA) 4+ (Normal) H 11/22/22 13:39 Urine Ketones 2+ (Negative) H 11/22/22 13:39 Urine Blood 2+ (Negative) H 11/22/22 13:39 Urine Nitrate Negative (Negative) 11/22/22 13:39 Urine Bilirubin Neg (Negative) 11/22/22 13:39 Urine Urobilinogen Neg mg/dL (Negative) 11/22/22 13:39 Ur Leukocyte Esterase Negative (Negative) 11/22/22 13:39 Urine RBC 0-4 /hpf (0-2) H 11/22/22 13:39 Urine WBC 0-4 /hpf (0-5) H 11/22/22 13:39 Ur Squamous Epith Cells 0-4 /hpf (0-5) H 11/22/22 13:39 Amorphous Sediment Not Reportable 11/22/22 13:39 Urine Bacteria Trace /hpf (NONE) 11/22/22 13:39 Serum Ketones Negative (Negative) 11/23/22 06:15 Discharge Plan Discharge Patient Disposition: Placed in Observation Admit Provider: Abbey Jacinto Clinical Impression: Colitis, Nausea, vomiting, and diarrhea, Continuous severe abdominal pain Coding Level of Care Code ED Retail Cashier for Melissa King
[2022-11-22 13:44] LABS: ABG PCO2 39.1 mmHg (35-45); ABG PH Result 7.41 (7.35-7.45); Arterial Blood Gas Hematocrit 36.8 % (37-47); Blood Gas Allen Test Pos; Blood Gas Operator Identificat WALCI; Blood Gas Sample Site Radial, left; Blood Gas Sample Type Arterial; Carboxyhemoglobin 0.7 %THgb (0.4-20.1); HCO3 ABG 24.6 mmol/L (22-26); Ionized Calcium Level - ABG 1.3 mmol/L (1.1-1.4); Methemoglobin 0.4 % (0.4-1.5); Potassium Level - ABG 3.8 mmol/L (3.5-5.0)
--- NOTE | 2022-11-22 13:44 | ECG_ITS ---
[facility] Test Date: 2022-11-22 Pat Name: Evelyn Farley Department: Room: Gender: Female Press Bucker: : [id number] Requested By: Shakeel Fontenot Order Number: [id number] Beverley MD: Christine Sepulveda M.D. Measurements Intervals [place] Rate: 62 P: 76 MO: 148 QRS: 32 QRSD: 140 T: 91 QT: 536 QTc: 546 Interpretive Statements SINUS RHYTHM WITH OCCASIONAL SUPRAVENTRICULAR PREMATURE COMPLEXES LEFT BUNDLE BRANCH BLOCK [120+ ms QRS DURATION, 80+ ms Q/S IN V1/V2, 85+ ms R IN I/aVL/V5/V6] Compared to ECG 09/15/2022 03:06:41 Left bundle-branch block now present Intraventricular conduction delay no longer present Myocardial infarct finding no longer present Electronically Signed On 11-23-2022 7:56:10 PATIENT INSURANCE CLERK by Christine Sepulveda M.D. [email or web address]
--- NOTE | 2022-11-22 14:06 | CT_ITS ---
WS: [id number] CT ABDOMEN PELVIS TECHNIQUE: Noncontrast CT of the abdomen and pelvis with coronal and sagittal reformatted images. CLINICAL INFORMATION: abd pain, n/v COMPARISON: CT September 07, 2022 DLP: 432.[address] scans at [facility] use at least one of these dose optimization techniques: automated e xposure control; mA and/or kV adjustment per patient size (includes targeted exams where dose is matc hed to clinical indication); or iterative reconstruction. FINDINGS:Diffuse thickening involving the RIGHT colon,hepatic flexure and transverse colon compatible with colitis. Splenic flexure and descending colon more normal appearance. No free fluid in the pelv is. No free air. No portal venous air. Prior hysterectomy. Again seen is haziness in the central mesentery compatible with basim mesentery with associated prominent lymph nodes. This is similar in appearance to July 05, 2022. Prior po stoperative changes cholecystectomy. Physiologic dilatation of the common bile duct unchanged. Nonobs tructing bilateral renal parenchymal calculi. No hydronephrosis. Noncontrast liver is normal. Small esophageal hiatal hernia. Normal noncontrast spleen. Fatty atrophy of the pancreas. Adrenal glands are normal. No hydronephrosis in either kidney. Cortical scarring shraddha th kidneys. Stable dystrophic calcifications RIGHT kidney. Tiny nonobstructing renal parenchymal and calyceal tip calculi. Rectosigmoid constipation.Subsegmental atelectasis in the LEFT lower lobe. Osteopenia. CT/CT abdomen pelvis wo con [id number] IMPRESSION: 1. Diffuse colonic thickening compatible with colitis involving the RIGHT colo n and transverse colon which normalizes at the splenic flexure. Splenic flexure and descending colon are normal. Normal sigmoid colon. Findings likely due to infectious, inflammatory or possibly ischemic colitis. This could be further ev aluated with CTA. 2. No free air or portal venous air. 3. Basim mesentery with prominent central mesenteric lymph nodes unchanged sin ce 2021. 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 Recommend continued surveillance. 4. Small esophageal hiatal hernia. 5. Cortical scarring both kidneys. No hydronephrosis. 6. Rectosigmoid constipation. 7. No other acute findings Notified Shakeel Fontenot MD at 11/22/2022 3:50 PM.
[2022-11-22 14:33] LABS: Basophils % 0.2 %; Eosinophils % 0.1 %; Hematocrit 35.9 % (37.0-47.0); Hemoglobin 11.6 g/dL (11.5-15.3); Lymphocytes # 2.1 10^3/uL (0.8-4.8); Lymphocytes % 19.1 %; Mean Corpuscular HGB Conc 32.3 g/dL (30.0-36.0); Mean Corpuscular Hemoglobin 29.6 pg (28.0-34.0); Mean Corpuscular Volume 91.6 fl (81-99); Mean Platelet Volume 11.1 fL (7.4-10.4); Monocytes # 0.3 10^3/uL (0.2-0.9); Monocytes % 2.3 %; Neutrophils # 8.48 10^3/uL (1.8-7.7); Neutrophils % 77.7 %; Nucleated Red Blood Cells % 0 %; Platelet Count 279 10^3/cmm (130-400); Red Blood Count 3.92 10^6/uL (4.1-5.3); Red Cell Distribution Width 12.4 % (12.1-15.1); White Blood Count 10.9 10^3/uL (4.0-10.0)
[2022-11-22 14:46] LABS: Add Urine Culture? No; Add Urine Microscopic? YES; Bilirubin Urine Neg (Negative); Blood Urine 2+ (Negative); Glucose Urine UA 4+ (Normal); Ketones Urine 2+ (Negative); Leukocyte Esterase Urine Negative (Negative); Nitrate Urine Negative (Negative); Protein Urine 1+ (Negative); RBC Urine 0-4 /hpf (0-2); Specific Gravity, Urine 1.015 (1.005-1.030); Squamous Epithelial Cell Urine 0-4 /hpf (0-5); Urine Appearance Clear (CLEAR); Urine Color Yellow (Yellow); Urobilinogen Urine Neg (Negative); WBC Urine 0-4 /hpf (0-5); pH Urine 6 (5-7)
[2022-11-22 14:51] LABS: Alanine Aminotransferase 13 U/L (0-33); Albumin Level 4.3 g/dL (3.5-5.2); Alkaline Phosphatase 100 U/L (35-105); Anion Gap 18.9 (5-19); Aspartate Amino Transferase 14 U/L (0-32); Blood Urea Nitrogen 23 mg/dL (8-23); Calcium 9.2 mg/dL (8.5-10.5); Carbon Dioxide 23 mmol/L (22-29); Chloride 98 mmol/L (98-107); Globulin 2.8 g/dL (1.3-4.6); Glucose 360 mg/dL (65-115); Lipase 16 U/L (13-60); Osmolality Calculated 300 mOsm/kg (285-295); Potassium 3.9 mmol/L (3.5-5.1); Sodium 136 mmol/L (136-145); Total Bilirubin 0.7 mg/dL (0.15-1.2); Total Protein 7.1 g/dL (6.6-8.7)
[2022-11-22 14:58] LABS: Ketone (Acetest) Serum Negative (Negative)
--- NOTE | 2022-11-22 15:01 | PC.PHAR ---
pt and pts family states the pt takes care of her own medications-pt states she is still using novolog flexpen 5 units tid ext med history shows last filled 04/24/22 30d/s-pt states the dr sanchez lasix 20mg daily rx written 09/17/22-levemir flextouch prescribed as 80 units BID - pt states she is taking 60 units BID-pt states uses the flexpen last filled 08/14/22 vial last filled 10/15/22 25d/s-notes are made in the pharmacy comments
[2022-11-22] MEDS: sodium chloride 0.9% 1,000 ML 999 ML IV (15:18)
[2022-11-22] MEDS: ondansetron 2 mg/ML SDV 2 mL 4 MG IVP (15:18)
[2022-11-22] MEDS: morphine 4 mg/mL SDV 1 mL IVP (15:22)
[2022-11-22 15:25] LABS: Troponin(5th) Baseline 12 ng/L (0-10)
[2022-11-22 15:27] LABS: Bacteria Urine TRACE /hpf
--- NOTE | 2022-11-22 15:39 | ECG_ITS ---
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 Measurements Intervals [place] Rate: 72 P: 65 SC: 155 QRS: 30 QRSD: 145 T: 92 QT: 503 QTc: 553 Interpretive Statements SINUS RHYTHM WITH FREQUENT SUPRAVENTRICULAR PREMATURE COMPLEXES LEFT BUNDLE BRANCH BLOCK [120+ ms QRS DURATION, 80+ ms Q/S IN V1/V2, 85+ ms R IN I/aVL/V5/V6] Compared to ECG 11/22/2022 13:44:22 No significant changes Electronically Signed On 11-23-2022 8:13:10 TELEGRAPH OFFICE TELEPHONE CLERK by Christine Sepulveda M.D. [id number]
[2022-11-22 16:17] LABS: Reflex Lactate Order REFLEX LACTIC ORDERD
[2022-11-22 17:17] LABS: Troponin 5 2HR 11.88 ng/L (0-10)
[2022-11-22 17:18] LABS: Troponin 5 2HR Delta -0.12 ABS# (0-10)
[2022-11-22 17:24] LABS: Lactic Acid level (Lactate) 3.2 mmol/L (0.5-2.2)
[2022-11-22 17:37] VITALS: PULSE 82; RESP 18; O2SAT 100
[2022-11-22] MEDS: piperacillin-tazobactam 4.5 GM in sodium chloride 0.9% (plus) 50 ML IV (18:08)
--- NOTE | 2022-11-22 18:23 | PM.HP ---
Providers/Chief Complaint Primary Care Provider: Jane Strickland MD Chief Complaint: throwing up and stomach pain for 2 days History of Present Illness Evelyn Farley is a 76-year-old female with a past medical history significant for coronary artery disease, diabetes mellitus, neuropathy, fibromyalgia, hyperlipidemia, hypertension, and NSTEMI who presented with?recurrent nausea and vomiting. In the ER she has been diagnosed with right-sided colitis. Her lactic acid is isolated to dehydration however no active signs of sepsis. She is afebrile. She has been given IV fluids and antibiotics. Recently she was discharged after management of NSTEMI/CHF which was managed medically, she was given antibiotics for pneumonia. Her admission prior to that was noticeable for significant delta troponin she underwent cardiac cath status post stent to mid LAD and distal left circumflex. Patient is stating that her symptoms started suddenly yesterday around 5 PM with recurrent nausea and vomiting, she has not noticed any fever, diarrhea. She is experiencing abdominal pain which she describing as bandlike pattern subcostal margin. She has not taken her aspirin and Plavix today. She is not able to keep anything down. In the ER she has been given ciprofloxacin and Flagyl Review of Systems Const: Reports: chills and body aches Eyes: Denies: change in vision ENMT: Denies: throat pain Card: Denies: chest pain Resp: Denies: dyspnea GI: Reports: abdominal pain, nausea and vomiting : Denies: flank pain Musc: Denies: neck pain Skin/Breast: Denies: rash Neuro: Denies: headache(s) Psych: Denies: anxiety Endo: Denies: polyuria Alen/Lymph: Denies: easy bruising All/Imm: Denies: urticaria Medications/Allergies Home Medications Medication Instructions Recorded Confirmed Last Taken Type blood-glucose meter #1 ea 11/19/19 11/22/22 Unknown Rx insulin aspart U-100 100 unit/mL 5 unit (0.05 mL) SUBCUT TID 30 09/26/21 11/22/22 11/21/22 Rx (3 mL) subcutaneous pen (Novolog days #4.5 mL FlexPen U-100 Insulin aspart) multivitamin 1 tab PO QAM 05/23/22 11/22/22 11/21/22 History aspirin 81 mg tablet,delayed 81 mg PO BEDTIME 30 days #30 tabs 1111/22/22 11/21/22 Rx release (Adult Low Dose Aspirin) nitroglycerin 0.4 mg sublingual 0.4 mg sublingual Q5M PRN chest 09/11/22 11/22/22 Unknown Rx tablet pain #30 tabs insulin detemir U-100 100 unit/mL 60 unit SUBCUT BID 09/15/22 11/22/22 11/21/22 History (3 mL) subcutaneous pen (Levemir FlexTouch U-100 Insulin) blood sugar diagnostic (Accu-Chek #100 ea 10/01/22 11/22/22 Unknown Rx Merced Plus test strips) blood sugar diagnostic (Accu-Chek #100 ea 10/01/22 11/22/22 Unknown Rx Merced Plus test strips) pen needle, diabetic 29 gauge x #100 ea 10/01/22 11/22/22 Unknown Rx 1/2 (1st Tier Unifine Pentips) pen needle, diabetic 32 gauge x ##100 10/17/22 11/22/22 Unknown Rx 5/32 (TechLITE Pen Needle) hydrocodone 5 mg-acetaminophen 325 1 tab PO BID PRN pain 60 days #60 10/20/22 11/22/22 Unknown Rx mg tablet tabs clopidogrel 75 mg tablet 75 mg PO BEDTIME 11/22/22 11/22/22 11/21/22 History metoprolol tartrate 100 mg tablet 100 mg PO Q12H 11/22/22 11/22/22 11/21/22 History omeprazole 20 mg capsule,delayed 20 mg PO BID 11/22/22 11/22/22 11/21/22 History release ondansetron 4 mg disintegrating 4 mg PO Q8H 11/22/22 11/22/22 11/22/22 History tablet ramipril 5 mg capsule 5 mg PO BEDTIME 11/22/22 11/22/22 11/21/22 History rosuvastatin 40 mg tablet 40 mg PO BEDTIME 11/22/22 11/22/22 11/21/22 History Allergies Allergy/AdvReac Type Severity Reaction Status Date / Time gabapentin Allergy hallucinati Verified 09/25/22 08:25 ons Iodinated Contrast Media Allergy Unknown Verified 09/25/22 08:25 nifedipine [From Procardia] Allergy Unknown Verified 09/25/22 08:25 prochlorperazine Allergy Unknown Verified 09/25/22 08:25 [From Compazine] PFSH Acute PFSH: Medical History Abdominal pain Acidosis, lactic Anxiety and depression ASHD (arteriosclerotic heart disease) Cataracts, bilateral Chest pain CKD (chronic kidney disease) Colitis Diabetes Diabetic ketoacidosis Diabetic neuropathy Diabetic peripheral neuropathy DKA (diabetic ketoacidosis) Fibromyalgia Gastroparesis Gram-positive bacteremia Hyperlipidemia Hypertension Hypokalemia Hypophosphatemia Insomnia Intractable abdominal pain Intractable vomiting with nausea Left renal stone Left ureteral calculus Leukocytosis Migraine Nausea and vomiting NSTEMI (non-ST elevated myocardial infarction) Odynophagia Pyelonephritis Pyuria Shingles Ureterolithiasis Urolithiasis Yeast vaginitis Surgical History H/O angioplasty H/O carpal tunnel repair H/O: hysterectomy History of cholecystectomy S/P ureteral stent placement Family History Mother , at age 65 Heart attack Father , at age 63 Heart attack Other Diabetes Hypertension Social History Smoking and tobacco status: current every day smoker Second hand smoke exposure: No Alcohol intake: never Adopted: No Caregiver/support person: Yes (spouse) Lives independently: Yes Household members: spouse Marital status: service: No Current occupational status: retired History of recent travel: No Current gender identity: Female Special vandana needs: No Agree to transfusion: Yes Vitals/I&O/Wt Last Vital Signs Temp 98.1 F 11/22/22 11:51 Pulse 82 11/22/22 17:37 Resp 18 11/22/22 17:37 BP 147/86 11/22/22 11:51 Pulse Ox 100 11/22/22 17:37 O2 Del Method 11/22/22 17:37 11/22/22 11/22/22 11/22/22 06:59 14:59 22:59 Intake Total 1000 / 1000 Balance 1000 / 1000 Physical Exam Narrative: Patient is laying supine Active emesis Looks dehydrated Abdomen tender to palpation in subcostal margin Otherwise no signs of peritonitis No signs of fluid overload Currently on room air Awake and alert GCS 15 Nonfocal neuro exam Appears stated age Data 11/22/22 14:25 11/22/22 14:25 A&P Assessment and plan (1) Colitis: (2) Dehydration: (3) Hypokalemia: (4) Leukocytosis: Plan Colitis without sepsis Start Zosyn Clear liquid diet Continue IV fluids Check C. difficile She was recently discharged on antibiotics She has significant coronary disease, mesenteric ischemia needs to be ruled out in case of recurrent emesis she might need CTA abdomen pelvis For now I will hydrate her with IV fluids Dehydration related lactic acidemia No active signs of sepsis Active emesis: Use Zofran Clear liquid diet CHF without acute exacerbation Type 2 diabetes, I will reduce the dose of insulin to avoid hypoglycemic events DNR/DNI Clear liquid diet Opioids for pain management Patient lives with her Attestations Medical Necessity Statement*: Anticipating discharge within 48 hours Coding Level of Care Code 62728 Diagnoses Colitis K52.9 Dehydration E86.0 Hypokalemia E87.6 Leukocytosis D72.829
[2022-11-22 18:54] LABS: D Dimer 0.55 ug/mIFEU (0-0.59)
[2022-11-22 20:00] VITALS: BP 173/84; PULSE 108; RESP 17; TEMP 36.8; O2SAT 99
[2022-11-22 22:11] LABS: Glucose Point of Care 439 mg/dL (70-110)
[2022-11-23] VITALS (13 sets, daily range): BP systolic 129–202; BP diastolic 67–101; PULSE 95–129; RESP 14–18; TEMP 36.6–37.4; O2SAT 94–99
[2022-11-23] MEDS: clopidogrel 75 mg Tablet PO ×2 (00:30→22:04)
[2022-11-23] MEDS: lisinopril 20 mg Tablet PO ×2 (00:30→22:03)
[2022-11-23] MEDS: aspirin 81 mg EC Tablet PO ×2 (00:30→22:03)
--- NOTE | 2022-11-23 01:00 | PC.NURSE ---
pt does not have IV access, multiple nursing staff attempted to reinsert IV and were unsuccessful, 3 attempts to insert IV via ultrasound and was also unsuccessful, this nurse notified Dr. Suazo whom gave orders to start IV in pts foot, this nurse reminded Dr. Suazo that the pt is a diabetic, and Dr. Suazo stated It does not matter you can still start IV in her foot.
--- NOTE | 2022-11-23 01:17 | XRR_ITS ---
PROCEDURE INFORMATION: Exam: XR Abdomen Exam date and time: 11/23/2022 1:31 AM Age: 77 years old Clinical indication: Prior surgery; Surgery type: Gb. Hysterectomy; Patient HX: Persistent vomiting. History of gastroparesis. TECHNIQUE: Imaging protocol: Radiologic exam of the abdomen. Views: Frontal supine view of the abdomen. 1 View. COMPARISON: CT abdomen pelvis con [id number] 11/22/2022 2:43 PM FINDINGS: Gastrointestinal tract: [id number] constipation without bowel dilation to indicate obstruction. Bones/joints: Unremarkable. XR/XR KUB portable [id number] IMPRESSION: [id number] constipation without bowel dilation to indicate obstruction.
--- NOTE | 2022-11-23 01:20 | PC.NURSE ---
Patients BP was 201/94 automatically. I took a manual BP and heard 230/96. Nurse notified and re done manual BP.
[2022-11-23] MEDS: scopolamine 1.5 Patch 1 PATCH TRANSDERMA (01:38)
[2022-11-23] MEDS: ondansetron 2 mg/ML SDV 2 mL 4 MG IVP ×3 (02:56→17:12)
[2022-11-23] MEDS: morphine 4 mg/mL SDV 1 mL 2 MG IVP ×4 (03:00→22:53)
[2022-11-23] MEDS: piperacillin-tazobactam 3.375 GM in sodium chloride 0.9% (plus) 50 ML IV ×3 (03:30→18:27)
[2022-11-23 06:26] LABS: Basophils % 0.1 %; Hematocrit 36.6 % (37.0-47.0); Hemoglobin 12.3 g/dL (11.5-15.3); Lymphocytes # 1.2 10^3/uL (0.8-4.8); Lymphocytes % 9.1 %; Mean Corpuscular HGB Conc 33.6 g/dL (30.0-36.0); Mean Corpuscular Hemoglobin 30.1 pg (28.0-34.0); Mean Corpuscular Volume 89.7 fl (81-99); Monocytes # 0.5 10^3/uL (0.2-0.9); Monocytes % 3.7 %; Neutrophils % 86.7 %; Nucleated Red Blood Cells % 0 %; Platelet Count 379 10^3/cmm (130-400); Red Blood Count 4.08 10^6/uL (4.1-5.3); Red Cell Distribution Width 12.6 % (12.1-15.1); White Blood Count 13.4 10^3/uL (4.0-10.0)
[2022-11-23 06:48] LABS: Lactate (Lactic Acid level) 2.8 mmol/L (0.5-2.2)
[2022-11-23 06:49] LABS: Anion Gap 27.8 (5-19); Blood Urea Nitrogen 30 mg/dL (8-23); C Reactive Protein 12.4 mg/L (0.0-4.9); Calcium 9.7 mg/dL (8.5-10.5); Carbon Dioxide 19 mmol/L (22-29); Chloride 94 mmol/L (98-107); Osmolality Calculated 316 mOsm/kg (285-295); Phosphorus 4.1 mg/dL (2.5-4.5); Potassium 3.8 mmol/L (3.5-5.1); Sodium 137 mmol/L (136-145)
[2022-11-23 06:56] LABS: Glucose 559 mg/dL (65-115)
[2022-11-23 07:03] LABS: Glucose Point of Care 531 mg/dL (70-110)
[2022-11-23 07:24] LABS: Ketone (Acetest) Serum Negative (Negative)
[2022-11-23 08:36] LABS: Estmated Average Glucose 174; Hemoglobin A1C 7.7 % (4.0-6.0)
[2022-11-23] MEDS: insulin lispro 100 unit/1 mL 10 UNIT SUBCUT ×2 (08:52→12:45)
[2022-11-23] MEDS: insulin lispro 100 unit/1 mL SUBCUT ×3 (08:52→18:27)
[2022-11-23 09:47] LABS: Glucose Point of Care 476 mg/dL (70-110)
--- NOTE | 2022-11-23 10:12 | P.PN_ITS ---
Subjective Subjective: Overnight events noted Hyperglycemia, high anion gap, normal potassium, acidotic, lactic acid improved, no fever hypertensive and tachycardic Worsening of leukocytosis noted I have given her another 10 units of NovoLog 1 L bolus We will give her an amp of bicarb He has had multiple episodes of emesis overnight She is passing flatus We are getting another IV 20-gauge to bolus her I did tell the nurse that in case her blood sugar is not getting better with next BMP we might have to consider ICU but for now we can watch her on MedSurg Vitals/I&O/Wt Last Vital Signs Temp 99.3 F 11/23/22 08:00 Pulse 129 H 11/23/22 08:00 Resp 18 11/23/22 10:01 BP 202/101 11/23/22 08:00 Pulse Ox 98 11/23/22 10:01 O2 Del Method 11/23/22 10:01 11/22/22 11/23/22 11/23/22 22:59 06:59 14:59 Intake Total 1000 / 1000 50 / 1050 50 / 50 Balance 1000 / 1000 50 / 1050 50 / 50 Weight last 48 hrs Weight 63.957 kg Physical Exam Narrative: Patient is dehydrated Laying supine Abdomen tender to touch on deep palpation right quadrant and left lower quadrant is at the bedside Patient is awake and alert Lethargic Able to answer all my questions She is awake and alert GCS 15 Nonfocal neuro exam No active emesis at the time of my evaluation Doing well on room air Data 11/23/22 06:15 11/23/22 06:15 A&P Assessment and plan (1) Hypokalemia: (2) Dehydration: (3) Colitis: (4) Hyperglycemia: (5) Constipation: Plan Colitis Patient is passing flatus Abdominal pain Recurrent emesis Continue IV fluids She is on clear liquid diet Severe dehydration: Continue IV hydration Hyperglycemia without signs of DKA High anion gap secondary to metabolic acidosis due to lactic acid Another 1 L bolus We will give her 1 amp of bicarb In case her blood sugar remains above 500 she might need ICU later today We will follow-up with next BMP which is every 6 hours ordered by the produce team member She has been given 10 minutes of regular insulin, I have given her 10 units of NovoLog Recheck POC glucose Hypokalemia: Improved, she still needs potassium supplementation History of CHF without acute exacerbation Hypertension: Continue antihypertensive regimen AMY related to dehydration, anticipate improvement with IV fluid hydration Family meeting conducted Constipation: Rectosigmoid constipation we will give her lactulose enema DNR/DNI Clear liquid diet Increase IV fluids 225 mill per hour History of coronary disease status post stent she will need aspirin and Plavix daily Attestations Medical Necessity Statement*: Change to inpatient continue hospitalization Coding Level of Care Code 12614 Diagnoses Hypokalemia E87.6 Dehydration E86.0 Colitis K52.9 Hyperglycemia R73.9 Constipation K59.00 Time Spent (min) 40
--- NOTE | 2022-11-23 11:14 | PC.CHAP ---
Pastoral Care Encounter/Spiritual Assessment Type of Contact [] Declined client support analyst visit [] Patient/Family/Request visit [] Outpatient visit [] Follow-up visit [] Physician referral [] Code/Alert [x] Routine visit [] Staff referral [] Actively dying [] Patient sleeping [x] Family support [] [] Out of room [] Palliative care [] [] Receiving care in room [] Pre-surgical visit [] Trauma [] Long length of stay [] ICU visit [] Other: Relational/Emotional Strength [x] Patient feels connected with others/family/visitors/staff [] Distress [] Loneliness/isolation [] Abandonment Spirituality of Patient [x] Person of Audrey [] Attends Christianity of their Audrey [x] Believes in Prayer [] Reads Bible or Mosque materials [] There are Spiritual issues to be addressed Seat Mender Interventions [x] Prayer [] Active listening [] Non-anxious presence [] Spiritual/emotional support [] Crisis/trauma care [] Spiritual counseling [] Bereavement support [] Provided bereavement packet [] Provided Bible/devotional materials [] Provided toy/stuffed animal, coloring book to patient or family member [] Provided Communion [] Anointing/[place] [] Salvation [x] Completed spiritual assessment [] Other: Impact on Illness or Injury [] Angry [] Fearful [] Anxious [] Often cries [] Exhaustion [] Unable to work [] Unable to attend uatsdin [] Unable to walk/stand [] Unable to read [] Unable to drive [] Unable to eat/drink [] Unable to sleep [] Unable to be with family [] Patient intubated [] Other: Summary Time spent with patient 5min
[2022-11-23 11:59] LABS: Glucose Point of Care 336 mg/dL (70-110)
[2022-11-23 12:39] LABS: Alanine Aminotransferase 12 U/L (0-33); Albumin Level 3.9 g/dL (3.5-5.2); Alkaline Phosphatase 98 U/L (35-105); Anion Gap 17.5 (5-19); Aspartate Amino Transferase 14 U/L (0-32); Blood Urea Nitrogen 33 mg/dL (8-23); Calcium 9.2 mg/dL (8.5-10.5); Carbon Dioxide 23 mmol/L (22-29); Chloride 97 mmol/L (98-107); Globulin 2.8 g/dL (1.3-4.6); Glucose 375 mg/dL (65-115); Osmolality Calculated 301 mOsm/kg (285-295); Potassium 3.5 mmol/L (3.5-5.1); Sodium 134 mmol/L (136-145); Total Protein 6.7 g/dL (6.6-8.7)
[2022-11-23] MEDS: sodium chloride 0.9% 1,000 ML 999 ML IV (12:45)
[2022-11-23] MEDS: sodium chloride 0.9% 1,000 ML 125 ML IV ×2 (12:45→22:05)
[2022-11-23] MEDS: heparin 5,000 unit/mL INJ 1 mL 5000 UNIT SUBCUT ×2 (12:46→22:05)
[2022-11-23] MEDS: sodium bicarbonate 8.4% 1 mEq/mL 50mL Syr 50 MEQ IVP (14:05)
[2022-11-23] MEDS: insulin glargine 100 units/1 mL 40 UNIT SUBCUT ×2 (14:05→18:27)
[2022-11-23] MEDS: lactulose oral liq 20 gm/30 mL UDC 200 GM PR (15:36)
--- NOTE | 2022-11-23 18:01 | PC.NURSE ---
MIDLINE RIGHT arm placed and ready for use. Primary nurse, Cindy, notified.
[2022-11-23 18:04] LABS: Glucose Point of Care 199 mg/dL (70-110)
[2022-11-23 19:40] LABS: Alanine Aminotransferase 12 U/L (0-33); Alkaline Phosphatase 93 U/L (35-105); Aspartate Amino Transferase 15 U/L (0-32); Blood Urea Nitrogen 32 mg/dL (8-23); Calcium 9.2 mg/dL (8.5-10.5); Carbon Dioxide 26 mmol/L (22-29); Chloride 98 mmol/L (98-107); Globulin 2.5 g/dL (1.3-4.6); Glucose 210 mg/dL (65-115); Osmolality Calculated 299 mOsm/kg (285-295); Sodium 138 mmol/L (136-145); Total Protein 6.5 g/dL (6.6-8.7)
[2022-11-23 21:28] LABS: Glucose Point of Care 162 mg/dL (70-110)
[2022-11-24] VITALS (11 sets, daily range): BP systolic 163–196; BP diastolic 80–97; PULSE 78–114; RESP 14–18; TEMP 36.7–37.7; O2SAT 93–100
[2022-11-24] MEDS: piperacillin-tazobactam 3.375 GM in sodium chloride 0.9% (plus) 50 ML IV ×3 (01:24→18:17)
[2022-11-24] MEDS: morphine 4 mg/mL SDV 1 mL 2 MG IVP ×3 (02:44→18:41)
[2022-11-24] MEDS: ondansetron 2 mg/ML SDV 2 mL 4 MG IVP ×2 (04:51→20:21)
[2022-11-24 06:45] LABS: Glucose Point of Care 132 mg/dL (70-110)
[2022-11-24 06:47] LABS: Blood Urea Nitrogen 24 mg/dL (8-23); Calcium 8.4 mg/dL (8.5-10.5); Carbon Dioxide 22 mmol/L (22-29); Chloride 102 mmol/L (98-107); Creatinine Clr Calc Pharmacy 42.0412; Glucose 126 mg/dL (65-115); Osmolality Calculated 292 mOsm/kg (285-295); Sodium 138 mmol/L (136-145)
[2022-11-24 06:57] LABS: Anion Gap 17.1 (5-19); Potassium 3.1 mmol/L (3.5-5.1)
[2022-11-24] MEDS: heparin 5,000 unit/mL INJ 1 mL 5000 UNIT SUBCUT ×2 (09:09→20:21)
[2022-11-24] MEDS: lidocaine 1% 5 ML in potassium chloride premix 100 ML 26.25 ML IV ×2 (09:09→13:00)
[2022-11-24] MEDS: insulin glargine 100 units/1 mL 40 UNIT SUBCUT (09:10)
--- NOTE | 2022-11-24 10:29 | PM.PN ---
Subjective Subjective: Patient is still complaining of nausea she does endorse her diabetic gastroparesis Afebrile Hypokalemia noted Potassium 3.1 Blood glucose is normal Anion gap closed No signs of metabolic acidosis Hemodynamically stable She had 2 bowel movements yesterday Vitals/I&O/Wt Last Vital Signs Temp 98.3 F 11/24/22 08:00 Pulse 109 H 11/24/22 08:00 Resp 15 11/24/22 09:09 BP 189/84 11/24/22 08:00 Pulse Ox 100 11/24/22 09:09 O2 Del Method 11/24/22 08:00 O2 Flow Rate 3 11/24/22 00:00 11/23/22 11/24/22 11/24/22 22:59 06:59 14:59 Intake Total 1580 / 2990 1050 / 4040 Output Total 75 / 75 Balance 1505 / 2915 1050 / 3965 Weight last 48 hrs Weight 63.957 kg Physical Exam Narrative: Awake and alert Still complaining abdominal pain right upper quadrant, left lower quadrant Tender on palpation Signs of dehydration slightly improved Hemodynamic stable Currently on room air Nonfocal neuro exam No audible stridor or wheezing S1, S2 Data 11/23/22 06:15 11/24/22 06:10 A&P Assessment and plan (1) Constipation: (2) Hyperglycemia: (3) Hypokalemia: (4) Dehydration: (5) Colitis: Plan Hypokalemia: Repleted Given 80 mEq IV potassium Colitis: Continue IV fluids and Zosyn Afebrile Cultures negative Recurrent nausea vomiting, diabetic gastroparesis and abdominal pain, repeat KUB, she still complaining of nausea and vomiting, patient stating that she is experiencing emesis every 2 hours Constipation: Relieved to enema 2 bowel movements yesterday Continue clear liquid diet for now Repeat KUB today Once her nausea and vomiting improved she might be able to go home Abdominal pain: Patient is asking for opioids, she is already getting morphine every 3 hours which I would not escalate for now DNR/DNI Attestations Medical Necessity Statement*: Continue medical management Coding Level of Care Code 92366 Diagnoses Constipation K59.00 Hyperglycemia R73.9 Hypokalemia E87.6 Dehydration E86.0 Colitis K52.9
--- NOTE | 2022-11-24 10:30 | XRR_ITS ---
PROCEDURE INFORMATION: Exam: XR Abdomen Exam date and time: 11/24/2022 10:41 AM Age: 77 years old Clinical indication: Constipation; Additional info: Colitis TECHNIQUE: Imaging protocol: Radiologic exam of the abdomen. Views: Frontal supine view of the abdomen. 1 View. Total images: 1 COMPARISON: CR (ABDOMEN, ) 11/23/2022 1:31 AM FINDINGS: Gastrointestinal tract: Bowel gas pattern is nondistended and nonobstructive. Organs: Cluster of calcifications in the right flank correspond to calculi and right renal parenchymal calcifications. Bones/joints: Mild scattered degenerative changes of the spine. Other findings: Mild stool burden. XR/XR KUB portable [id number] IMPRESSION: 1. Cluster of calcifications in the right flank correspond to calculi and right renal parenchymal calcifications. 2. Normal bowel gas pattern 3. Mild stool burden.
[2022-11-24 11:06] LABS: Glucose Point of Care 124 mg/dL (70-110)
[2022-11-24] MEDS: sodium chloride 0.9% 1,000 ML 75 ML IV (16:06)
[2022-11-24] MEDS: metoclopramide 5 mg/mL SDV 2 mL IVP (16:30)
[2022-11-24 17:00] LABS: Glucose Point of Care 83 mg/dL (70-110)
[2022-11-24] MEDS: clopidogrel 75 mg Tablet PO (20:21)
[2022-11-24] MEDS: lisinopril 20 mg Tablet PO (20:21)
[2022-11-24] MEDS: aspirin 81 mg EC Tablet PO (20:21)
[2022-11-24 22:04] LABS: Glucose Point of Care 83 mg/dL (70-110)
[2022-11-24] MEDS: HYDROcodone-acetaminophen 5-325 mg Tablet 1 TAB PO (23:17)
[2022-11-25] VITALS (9 sets, daily range): BP systolic 105–185; BP diastolic 69–92; PULSE 71–127; RESP 16–20; TEMP 36.4–37.3; O2SAT 92–99
[2022-11-25] MEDS: piperacillin-tazobactam 3.375 GM in sodium chloride 0.9% (plus) 50 ML IV ×3 (02:01→18:41)
[2022-11-25] MEDS: sodium chloride 0.9% 1,000 ML 75 ML IV ×2 (04:42→18:33)
[2022-11-25] MEDS: ondansetron 2 mg/ML SDV 2 mL 4 MG IVP ×3 (04:50→21:00)
[2022-11-25] MEDS: morphine 4 mg/mL SDV 1 mL 2 MG IVP ×2 (04:56→09:13)
[2022-11-25 05:51] LABS: Blood Urea Nitrogen 15 mg/dL (8-23); Calcium 8.3 mg/dL (8.5-10.5); Carbon Dioxide 22 mmol/L (22-29); Chloride 102 mmol/L (98-107); Creatinine Clr Calc Pharmacy 46.7125; Glucose 81 mg/dL (65-115); Osmolality Calculated 286 mOsm/kg (285-295); Sodium 138 mmol/L (136-145)
[2022-11-25 07:37] LABS: Glucose Point of Care 94 mg/dL (70-110)
[2022-11-25] MEDS: heparin 5,000 unit/mL INJ 1 mL 5000 UNIT SUBCUT ×2 (08:55→21:00)
--- NOTE | 2022-11-25 09:14 | CTR_ITS ---
PROCEDURE INFORMATION: Exam: CTA Abdomen and Pelvis With Contrast Exam date and time: 11/25/2022 10:36 AM Age: 77 years old Clinical indication: Abdominal pain; Generalized; Prior surgery; Surgery date: 6+ months; Surgery type: Hyst; Additional info: Abd pain and kidney stone HX TECHNIQUE: Imaging protocol: Computed tomographic angiography of the abdomen and pelvis with contrast. 3D rendering (Not supervised by radiologist): MIP and/or 3D reconstructed images were created by the technologist. Radiation optimization: All CT scans at this facility use at least one of these dose optimization techniques: automated exposure control; mA and/or kV adjustment per patient size (includes targeted exams where dose is matched to clinical indication); or iterative reconstruction. Contrast material: OMNI 350; Contrast volume: 100 ml; Contrast route: INTRAVENOUS (IV); Other protocol: This patient has received 6 known CTs and 0 known cardiac nuclear medicine studies in the 12 months prior to the current study. COMPARISON: 1. CT abdomen pelvis wo con [id number] 11/22/2022 2:[address] [place] [id number] 09/07/2022 1:[address] abdomen pelvis wo con [id number] 07/05/2022 1:00 AM RADIATION DOSE METRICS: Total DLP (mGy-cm): 392.4 FINDINGS: Lungs: There is subsegmental atelectasis in the lung bases. Aorta: There is moderate aortic atherosclerotic disease. There is circumferential calcific plaque in the distal aorta. No dissection, aneurysm, or significant luminal narrowing. Celiac trunk and mesenteric arteries: The superior mesenteric artery and its visible branches are patent without significant stenosis. The celiac artery is patent without significant stenosis. The inferior mesenteric artery is patent, with calcific plaque at the origin. The degree of stenosis cannot be accurately measured due to the small size of the vessel. Renal arteries: There is mild calcific plaque at the left renal artery origin with less than 50% stenosis. The right renal artery is widely patent. Right iliac arteries: Moderate calcific plaque in the right common iliac artery without significant stenosis. External iliac artery is widely patent. Internal iliac artery is patent and demonstrates moderate calcific plaque with multifocal greater than 50% stenosis distally. Left iliac arteries: Moderate calcific plaque in the left common iliac artery without significant stenosis. External iliac artery is widely patent. Internal iliac artery is patent and demonstrates multifocal greater than 50% stenosis distally. Liver: The liver is normal. Gallbladder and bile ducts: The gallbladder is absent. Common bile duct is dilated to 16 mm. There is mild central intrahepatic biliary dilation. No common bile duct stone is visible. Pancreas: There is moderate pancreatic atrophy without significant ductal dilation. Spleen: The spleen is unremarkable. Adrenal glands: The adrenal glands are unremarkable. Kidneys and ureters: Normal size kidneys with lobulated renal contours and multifocal cortical scarring and parenchymal calcifications in the right interpolar region. No hydronephrosis. Nonobstructive right renal collecting system stones measuring up to 5 mm. Stomach and bowel: The stomach is decompressed, preventing meaningful evaluation of wall thickness. The small bowel is nondilated. The ascending and proximal transverse colon are normal. There is no wall thickening. The distal transverse, descending and sigmoid colon are decompressed, limiting assessment of wall thickness. There is no pericolonic edema to suggest inflammation. Appendix: The appendix is not visible. Intraperitoneal space: There is no free air or significant intraperitoneal free fluid. Lymph nodes: There is no lymph node enlargement in the retroperitoneum, mesentery, pelvis or inguinal regions. There are numerous small lymph nodes in the central and right lower quadrant small bowel mesentery with surrounding mesenteric fat stranding. Urinary bladder: The urinary bladder is unremarkable. Reproductive: The uterus is absent. There is no adnexal mass or large cyst. Bones/joints: There is mild degenerative disease in the lumbar spine. There is mild degenerative disease of both hips. The bony pelvis is intact. Soft tissues: The abdominal wall is intact. CT/CT angio abdomen pelvis [id number] IMPRESSION: 1. No hemodynamically significant visceral arterial stenosis or occlusion. 2. No sign of colonic inflammation. 3. Mesenteric edema and prominent lymph nodes (basim mesentery), stable since 07/05/2022. 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 Differential diagnosis includes edema related to liver, cardiac, or renal disease, mesenteric inflammation secondary to organ or bowel inflammation, or mesenteric lymphedema. This finding can also be an early manifestation of lymphoma. 4. Incidental findings above.
--- NOTE | 2022-11-25 09:14 | PM.PN ---
Subjective Subjective: Patient is still complaining of right flank pain Requested CT abdomen pelvis History of kidney stones Afebrile No signs of sepsis Patient is still experiencing emesis She wants to try full liquid diet no bowel movement yesterday Potassium 3.3 No fever No signs of anion gap or worsening of acidosis Blood pressure 163/92 Patient is still in pain Currently on room air KUB showing nonspecific bowel gas pattern, Vitals/I&O/Wt Last Vital Signs Temp 97.5 F L 11/25/22 08:00 Pulse 99 11/25/22 08:00 Resp 18 11/25/22 08:00 BP 163/92 11/25/22 08:00 Pulse Ox 99 11/25/22 08:00 O2 Del Method 11/25/22 08:00 O2 Flow Rate 3 11/24/22 20:00 11/24/22 11/25/22 11/25/22 22:59 06:59 14:59 Intake Total 155 / 964.061 7816 / 1421.063 Balance 155 / 373.142 7548 / 1421.063 Physical Exam Narrative: Looks slightly well-hydrated as compared to yesterday Abdominal pain not elicited on superficial palpation No CVA tenderness S1, S2 Currently on room air is at the bedside Patient is able to get up on her own Abdominal soreness secondary to emesis Awake and alert Nonfocal neuro exam Data 11/23/22 06:15 11/25/22 04:26 A&P Assessment and plan (1) Constipation: (2) Hyperglycemia: (3) Hypokalemia: (4) Dehydration: (5) Colitis: Plan Dehydration related to recurrent emesis Colitis Gastroparesis Continue IV fluids and Zosyn Advance diet to full liquids Requested CTA abdomen pelvis to rule out mesenteric ischemia No CVA tenderness Hypokalemia: Repleted History of coronary disease no active chest pain continue aspirin and Plavix We will give her a dose of Reglan for recurrent emesis Hyperglycemia: Improved with use of insulin and IV fluids Anion gap closed Lactic acidemia improved which was secondary to dehydration DNR/DNI Advance diet at the bedside, all questions were answered DVT prophylaxis heparin Attestations Medical Necessity Statement*: Discharge tomorrow if clinically stable Coding Level of Care Code 21711 Diagnoses Constipation K59.00 Hyperglycemia R73.9 Hypokalemia E87.6 Dehydration E86.0 Colitis K52.9
[2022-11-25] MEDS: diphenhydrAMINE 50 mg/mL SDV 1mL 12.5 MG IVP (10:07)
[2022-11-25] MEDS: iohexol 350 mg/mL 500 mL Btl (per mL) IV (10:43)
[2022-11-25] MEDS: lactulose oral liq 20 gm/30 mL UDC 10 GM PO (10:47)
[2022-11-25] MEDS: lidocaine 1% 5 ML in potassium chloride premix 100 ML 26.25 ML IV (10:49)
[2022-11-25 12:13] LABS: Glucose Point of Care 130 mg/dL (70-110)
[2022-11-25] MEDS: HYDROcodone-acetaminophen 5-325 mg Tablet 1 TAB PO (14:37)
[2022-11-25 17:07] LABS: Glucose Point of Care 218 mg/dL (70-110)
[2022-11-25] MEDS: insulin glargine 100 units/1 mL 40 UNIT SUBCUT (18:42)
[2022-11-25] MEDS: insulin lispro 100 unit/1 mL SUBCUT ×2 (18:42→21:40)
[2022-11-25 20:11] LABS: Glucose Point of Care 312 mg/dL (70-110)
[2022-11-25] MEDS: HYDROmorphone 1 mg/mL INJ 1 mL 0.2 MG IVP (21:00)
[2022-11-25] MEDS: aspirin 81 mg EC Tablet PO (21:40)
[2022-11-25] MEDS: clopidogrel 75 mg Tablet PO (21:40)
[2022-11-25] MEDS: lisinopril 20 mg Tablet PO (21:40)
[2022-11-25 21:43] LABS: Glucose Point of Care 300 mg/dL (70-110)
[2022-11-26 00:27] LABS: Glucose Point of Care 131 mg/dL (70-110)
[2022-11-26] MEDS: piperacillin-tazobactam 3.375 GM in sodium chloride 0.9% (plus) 50 ML IV ×2 (01:40→10:13)
[2022-11-26 03:53] VITALS: BP 129/86; PULSE 93; RESP 16; TEMP 36.4; O2SAT 99
[2022-11-26] MEDS: HYDROcodone-acetaminophen 5-325 mg Tablet 1 TAB PO ×2 (04:19→12:20)
[2022-11-26] MEDS: metoclopramide 5 mg/mL SDV 2 mL IVP (04:19)
[2022-11-26 04:36] LABS: Blood Urea Nitrogen 25 mg/dL (8-23); Carbon Dioxide 22 mmol/L (22-29); Chloride 102 mmol/L (98-107); Glucose 62 mg/dL (65-115); Osmolality Calculated 290 mOsm/kg (285-295); Sodium 139 mmol/L (136-145)
[2022-11-26 04:53] LABS: Glucose Point of Care 77 mg/dL (70-110)
[2022-11-26 04:53] LABS: Glucose Point of Care 124 mg/dL (70-110)
[2022-11-26] MEDS: sodium chloride 0.9% 1,000 ML 75 ML IV (06:02)
[2022-11-26 07:44] LABS: Glucose Point of Care 165 mg/dL (70-110)
[2022-11-26 08:00] VITALS: BP 106/65; PULSE 90; RESP 18; TEMP 36.8; O2SAT 98
[2022-11-26] MEDS: heparin 5,000 unit/mL INJ 1 mL 5000 UNIT SUBCUT (08:45)
[2022-11-26] MEDS: insulin lispro 100 unit/1 mL SUBCUT ×2 (08:45→11:15)
[2022-11-26] MEDS: insulin glargine 100 units/1 mL 40 UNIT SUBCUT (08:48)
[2022-11-26 09:30] VITALS: PULSE 102; RESP 16; O2SAT 99
--- NOTE | 2022-11-26 10:16 | PC.SOCIAL ---
IMM Update pg 2 of IMM updated and reviewed w/ patient. Copy provided and Copy dated, initialed and placed in chart.
[2022-11-26 10:17] LABS: Glucose Point of Care 255 mg/dL (70-110)
--- NOTE | 2022-11-26 10:24 | PM.DCS ---
Discharge Providers Date of Admission: 11/23/22 08:31 Date of Discharge: November 26, 2022 Attending Provider at Admission: Abbey Jacinto MD Attending Provider at Discharge: Abbey Jacinto MD Primary Care Provider: Jane Strickland MD Diagnoses at Discharge Discharge Diagnosis (1) Constipation: Status: Acute (2) Hyperglycemia: Status: Acute (3) Hypokalemia: Status: Acute (4) Dehydration: Status: Acute (5) Colitis: Status: Acute Reason for Visit Reason for Visit: throwing up and stomach pain for 2 days Hospital Course Hospital Course 77-year-old female who was admitted for management of dehydration, sepsis, recurrent emesis and rectosigmoid constipation. Patient was given IV fluids, IV Zosyn, cultures remain negative, C. difficile ruled out, she also carries history of diabetic gastroparesis, it took more than 48 hours to get her vomiting under control, repeat CAT scan did not show any signs of kidney stones, hydronephrosis, worsening of colitis, she will be discharged home on 3 to 4 days of ciprofloxacin and Flagyl along opioids, she is tolerating her diet at the time of discharge, no active abdominal pain. She was given rectal enema which relieved her constipation, in total she had 4 bowel movements during her hospitalization. Emesis improved. She is high risk for readmissions. Please note she had peripheral IV access hence midline was placed for IV fluid hydration which will be removed before discharge. CTA abdomen pelvis showed mesenteric lymph nodes which are stable since last CT scan I have asked patient to discuss with her PCP whether she will need to go to gastroenterology for closer follow-up, and there is no history of lymphoma. No signs of mesenteric ischemia Physical Exam Narrative: Awake and alert Tolerating diet Eating breakfast at the bedside Abdomen soft No CVA tenderness Awake and alert Fatigue however pleasant and cooperative S1, S2 Doing well on room air Discharge Data Studies Completed and Pending Completed Studies During Hospitalization Category Date Time Status CT abdomen pelvis wo con [id number] Stat Cat Scan 11/22/22 14:06 Completed CTA abdomen pelvis [CT angio abdomen pelvis [id number]] Cat Scan 11/25/22 09:14 Completed Routine XR KUB portable [id number] Routine Exams 11/23/22 01:17 Completed XR KUB portable [id number] Routine Exams 11/24/22 10:30 Completed Pending at discharge Category Date Time Status CDIFF [Clostridioides Difficile PCR] Routine Lab 11/22/22 20:06 Uncollected Gastricult Occult BLD Stat Lab 11/22/22 18:15 Ordered Occult Blood Stool [Immunochemical Fecal OCB] Routine Lab 11/22/22 20:06 Uncollected Stool Culture, Bacterial [Enteric Bacterial Panel by Lab 11/22/22 20:06 Uncollected PCR] Routine Stool WBC [Lactoferrin] Routine Lab 11/22/22 20:06 Uncollected Radiology Impressions Abdomen/Pelvis CT 11/22/22 14:06 IMPRESSION: 1. Diffuse colonic thickening compatible with colitis involving the RIGHT colon and transverse colon which normalizes at the splenic flexure. Splenic flexure and descending colon are normal. Normal sigmoid colon. Findings likely due to infectious, inflammatory or possibly ischemic colitis. This could be further evaluated with CTA. 2. No free air or portal venous air. 3. Basim mesentery with prominent central mesenteric lymph nodes unchanged since 2021. 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 Recommend continued surveillance. 4. Small esophageal hiatal hernia. 5. Cortical scarring both kidneys. No hydronephrosis. 6. Rectosigmoid constipation. 7. No other acute findings Notified Shakeel Fontenot MD at 11/22/2022 3:50 PM. KUB X-Ray 11/24/22 10:30 IMPRESSION: 1. Cluster of calcifications in the right flank correspond to calculi and right renal parenchymal calcifications. 2. Normal bowel gas pattern 3. Mild stool burden. Abdomen/Pelvis CTA 11/25/22 09:14 IMPRESSION: 1. No hemodynamically significant visceral arterial stenosis or occlusion. 2. No sign of colonic inflammation. 3. Mesenteric edema and prominent lymph nodes (basim mesentery), stable since 07/05/2022. 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 Differential diagnosis includes edema related to liver, cardiac, or renal disease, mesenteric inflammation secondary to organ or bowel inflammation, or mesenteric lymphedema. This finding can also be an early manifestation of lymphoma. 4. Incidental findings above. Laboratory Results WBC 13.4 10^3/uL (4.0-10.0) H 11/23/22 06:15 RBC 4.08 10^6/uL (4.1-5.3) L 11/23/22 06:15 Hgb 12.3 g/dL (11.5-15.3) 11/23/22 06:15 Hct 36.6 % (37.0-47.0) L 11/23/22 06:15 MCV 89.7 fl (81-99) 11/23/22 06:15 MCH 30.1 pg (28.0-34.0) 11/23/22 06:15 MCHC 33.6 g/dL (30.0-36.0) 11/23/22 06:15 RDW 12.6 % (12.1-15.1) 11/23/22 06:15 Plt Count 379 10^3/cmm (130-400) D 11/23/22 06:15 MPV 11.0 fL (7.4-10.4) H 11/23/22 06:15 Neut % (Auto) 86.7 % 11/23/22 06:15 Lymph % (Auto) 9.1 % 11/23/22 06:15 [place] % (Auto) 3.7 % 11/23/22 06:15 Eos % (Auto) 0.0 % 11/23/22 06:15 Baso % (Auto) 0.1 % 11/23/22 06:15 Neut # (Auto) 11.60 10^3/uL (1.8-7.7) H 11/23/22 06:15 Lymph # (Auto) 1.2 10^3/uL (0.8-4.8) 11/23/22 06:15 [place] # (Auto) 0.5 10^3/uL (0.2-0.9) 11/23/22 06:15 Eos # (Auto) 0.0 10^3/uL (0.0-0.8) 11/23/22 06:15 Baso # (Auto) 0.0 10^3/uL (0.0-0.1) 11/23/22 06:15 Nucleated RBC % (auto) 0 % 11/23/22 06:15 Nucleated RBCs # 0.0 /100WBC 11/23/22 06:15 D-Dimer 0.55 ug/mIFEU (0-0.59) 11/22/22 14:25 Specimen Type Arterial 11/22/22 13:32 Sample Site Radial, left 11/22/22 13:32 ABG pH 7.41 (7.35-7.45) 11/22/22 13:32 ABG pCO2 39.1 mmHg (35-45) 11/22/22 13:32 ABG pO2 106.0 mmHg (80.0-100.0) H 11/22/22 13:32 ABG HCO3 24.6 mmol/L (22-26) 11/22/22 13:32 ABG O2 Saturation 98.0 11/22/22 13:32 ABG Base Excess 0.0 mmol/L (-2.0-2.0) 11/22/22 13:32 Antonio Test Pos 11/22/22 13:32 A-a O2 Gradient Not Reportable 11/22/22 13:32 Hematocrit 36.8 % (37-47) L 11/22/22 13:32 Hgb O2 Saturation 97.0 % (95-100) 11/22/22 13:32 Carboxyhemoglobin 0.7 %THgb (0.4-20.1) 11/22/22 13:32 Methemoglobin 0.4 % (0.4-1.5) 11/22/22 13:32 Total Hemoglobin 12.0 g/dL (12-16) 11/22/22 13:32 Sodium 139.0 mmol/L (131-143) 11/22/22 13:32 Potassium 3.8 mmol/L (3.5-5.0) 11/22/22 13:32 Glucose 370.0 mg/dL (70-115) H 11/22/22 13:32 Ionized Calcium 1.3 mmol/L (1.1-1.4) 11/22/22 13:32 O2 Delivery Device None 11/22/22 13:32 FiO2 21.0 % 11/22/22 13:32 Vascular Ultrasound Technologist ID [place] 11/22/22 13:32 Sodium 139 mmol/L (136-145) 11/26/22 03:49 Potassium 4.0 mmol/L (3.5-5.1) 11/26/22 03:49 Chloride 102 mmol/L (98-107) 11/26/22 03:49 Carbon Dioxide 22 mmol/L (22-29) 11/26/22 03:49 Anion Gap 19.0 (5-19) 11/26/22 03:49 BUN 25 mg/dL (8-23) H 11/26/22 03:49 Creatinine 1.1 mg/dL (0.5-0.9) H 11/26/22 03:49 GFR Calculation Not Reportable 11/26/22 03:49 Glucose 62 mg/dL (65-115) L 11/26/22 03:49 POC Glucose 255 mg/dL (70-110) H 11/26/22 10:11 Estimat Average Glucose 174 11/23/22 06:15 Hemoglobin A1c 7.7 % (4.0-6.0) H 11/23/22 06:15 Calculated Osmolality 290 mOsm/kg (285-295) 11/26/22 03:49 Lactic Acid 3.0 mmol/L (0.5-2.2) H 11/22/22 14:25 Lactic Acid (Sepsis) 3.2 mmol/L (0.5-2.2) H 11/22/22 16:43 Lactate 2.8 mmol/L (0.5-2.2) H 11/23/22 06:15 Calcium 9.0 mg/dL (8.5-10.5) 11/26/22 03:49 Phosphorus 4.1 mg/dL (2.5-4.5) 11/23/22 06:15 Magnesium 2.0 mg/dL (1.7-2.3) 11/23/22 06:15 Total Bilirubin 1.0 mg/dL (0.15-1.2) 11/23/22 18:57 AST 15 U/L (0-32) 11/23/22 18:57 ALT 12 U/L (0-33) 11/23/22 18:57 Alkaline Phosphatase 93 U/L (35-105) 11/23/22 18:57 Troponin T Baseline 12 ng/L (0-10) H 11/22/22 14:25 Troponin T 120 Minute 11.88 ng/L (0-10) H 11/22/22 16:43 Delta Troponin T -0.12 ABS# (0-10) L 11/22/22 16:43 C-Reactive Protein 12.4 mg/L (0.0-4.9) H 11/23/22 06:15 Total Protein 6.5 g/dL (6.6-8.7) L 11/23/22 18:57 Albumin 4.0 g/dL (3.5-5.2) 11/23/22 18:57 Globulin 2.5 g/dL (1.3-4.6) 11/23/22 18:57 Lipase 16 U/L (13-60) 11/22/22 14:25 Urine Color Yellow (Yellow) 11/22/22 13:39 Urine Appearance Clear (CLEAR) 11/22/22 13:39 Urine pH 6 (5-7) 11/22/22 13:39 Ur Specific [place] 1.015 (1.005-1.030) 11/22/22 13:39 Urine Protein 1+ (Negative) H 11/22/22 13:39 Urine Glucose (UA) 4+ (Normal) H 11/22/22 13:39 Urine Ketones 2+ (Negative) H 11/22/22 13:39 Urine Blood 2+ (Negative) H 11/22/22 13:39 Urine Nitrate Negative (Negative) 11/22/22 13:39 Urine Bilirubin Neg (Negative) 11/22/22 13:39 Urine Urobilinogen Neg mg/dL (Negative) 11/22/22 13:39 Ur Leukocyte Esterase Negative (Negative) 11/22/22 13:39 Urine RBC 0-4 /hpf (0-2) H 11/22/22 13:39 Urine WBC 0-4 /hpf (0-5) H 11/22/22 13:39 Ur Squamous Epith Cells 0-4 /hpf (0-5) H 11/22/22 13:39 Amorphous Sediment Not Reportable 11/22/22 13:39 Urine Bacteria Trace /hpf (NONE) 11/22/22 13:39 Serum Ketones Negative (Negative) 11/23/22 06:15 Vitals Last Vital Signs Temp 98.2 F 11/26/22 08:00 Pulse 102 H 11/26/22 09:30 Resp 16 11/26/22 09:30 BP 106/65 11/26/22 08:00 Pulse Ox 99 11/26/22 09:30 O2 Del Method 11/26/22 09:30 O2 Flow Rate 2 11/25/22 08:00 Discharge Plan Discharge Patient Disposition: Home Condition: Stable Prescriptions: New ciprofloxacin HCl 500 mg tablet 500 mg PO Q12H Qty: 6 0RF metronidazole 500 mg tablet 500 mg PO Q8H 3 Days Qty: 9 0RF acyclovir 400 mg tablet 400 mg PO DAILY Qty: 7 0RF Continued Novolog FlexPen U-100 Insulin 100 unit/mL (3 mL) insulin pen 5 unit SUBCUT TID 30 Days Qty: 4.5 3RF (DME) blood-glucose meter Kit See Rx Instructions .ROUTE .MEDSUPPLY Qty: 1 0RF Rx Instructions: TEST 4 TIMES PER DAY (DME) Accu-Chek [place] Plus test strp Strip See Rx Instructions .ROUTE .MEDSUPPLY Qty: 100 4RF Rx Instructions: TEST QID (DME) pen needle, diabetic [1st Tier Unifine Pentips] 29 gauge x 1/2 needle See Rx Instructions .Route Qty: 100 4RF Rx Instructions: As directed (DME) Accu-Chek [place] Plus test strp Strip See Rx Instructions .Route Qty: 100 4RF Rx Instructions: As directed; QID (DME) pen needle, diabetic [TechLITE Pen Needle] 32 gauge x 5/32 needle See Rx Instructions .ROUTE .COMPLEX Qty: 100 1RF Dose Instruction: USE DIRECTED with insulin Rx Instructions: USE DIRECTED with insulin multivitamin Tablet 1 tab PO QAM nitroglycerin 0.4 mg tablet, sublingual 0.4 mg sublingual Q5M PRN (Reason: chest pain) Qty: 30 0RF Rx Instructions: do not exceed 3 doses per episode aspirin [Adult Low Dose Aspirin] 81 mg tablet,delayed release (DR/EC) 81 mg PO BEDTIME 30 Days Qty: 30 3RF Levemir FlexTouch U-100 Insuln 100 unit/mL (3 mL) insulin pen 60 unit SUBCUT BID clopidogrel 75 mg tablet 75 mg PO BEDTIME omeprazole 20 mg capsule,delayed release(DR/EC) 20 mg PO BID ondansetron 4 mg tablet,disintegrating 4 mg PO Q8H Rx Instructions: FOR THREE DAYS ramipril 5 mg capsule 5 mg PO BEDTIME rosuvastatin 40 mg tablet 40 mg PO BEDTIME hydrocodone-acetaminophen 5-325 mg tablet 1 tab PO BID PRN (Reason: pain) 60 Days Qty: 10 0RF Held metoprolol tartrate 100 mg tablet 100 mg PO Q12H Hold Instructions: Resume on 11/28/22. Discharge Orders: Discharge Order (Routine); Ordered 11/26/22 Ordered By: Abbey Jacinto Referrals: Jane Strickland MD [Primary Care Provider] - 12/03/22 2:00 pm (1) Patient Instructions: Ciprofloxacin (By mouth), Acyclovir (By mouth), Metronidazole (By mouth) (Flagyl, Flagyl 375, Flagyl ER), Hyperglycemia, Abdominal Pain (ED), Colitis (ED), Opioid Safety Discharge Attestations Time Spent in Discharge Care*: less than 30 min Quality Metrics Clinical Quality Measures [ No reported AMI, CVA or VTE this stay] Coding Level of Care Code Acute Code for Chg Fwd Diagnoses Constipation K59.00 Hyperglycemia R73.9 Hypokalemia E87.6 Dehydration E86.0 Colitis K52.9
[2022-11-26 11:20] LABS: Glucose Point of Care 286 mg/dL (70-110)
[2022-11-26 11:37] VITALS: BP 114/63; PULSE 86; RESP 18; TEMP 37.4; O2SAT 97
--- NOTE | 2022-11-26 12:50 | PC.NURSE ---
Midline removed at 1250 from right upper room. Catheter intact. Area wrapped in coban. NO signs of bleeding.
== END 2022-11-26 13:00 | disposition home or self-care (01) | DRG 392 ==
LOC: ER 17:11 → MEDSURG 20:00 → ICU 11-23 08:19 → MEDSURG 11-23 08:41
PROVIDERS: Student in an Organized Health Care Education/Training Program; Admitting Provider Internal Medicine; Emergency Provider Emergency Medicine; PCP Family Medicine; Visit Provider Internal Medicine
DX: K52.9 Noninfective gastroenteritis and colitis, unspecified (principal); N17.9 Acute kidney failure, unspecified; E86.0 Dehydration; K59.00 Constipation, unspecified; E11.43 Type 2 diabetes mellitus with diabetic autonomic (poly)neuropathy; K31.84 Gastroparesis; E11.42 Type 2 diabetes mellitus with diabetic polyneuropathy; E11.65 Type 2 diabetes mellitus with hyperglycemia; E11.22 Type 2 diabetes mellitus with diabetic chronic kidney disease; I12.9 Hypertensive chronic kidney disease with stage 1 through stage 4 chronic kidney disease, or unspecified chronic kidney disease; N18.9 Chronic kidney disease, unspecified; Z79.4 Long term (current) use of insulin; Z79.82 Long term (current) use of aspirin; Z79.02 Long term (current) use of antithrombotics/antiplatelets; Z79.891 Long term (current) use of opiate analgesic; I25.10 Atherosclerotic heart disease of native coronary artery without angina pectoris; Z95.5 Presence of coronary angioplasty implant and graft; M79.7 Fibromyalgia; E78.5 Hyperlipidemia, unspecified; I25.2 Old myocardial infarction; Z87.01 Personal history of pneumonia (recurrent); Z91.041 Radiographic dye allergy status; Z87.442 Personal history of urinary calculi; Z66 Do not resuscitate; F17.200 Nicotine dependence, unspecified, uncomplicated; F41.8 Other specified anxiety disorders
CPT/HCPCS: 36415; 36416; 36569; 36600; 74018; 74174; 74176; 80048; 80051; 80053; 81001; 82009; 82330; 82805; 82962; 83036; 83605; 83690; 83735; 84100; 84484; 85025; 85378; 86140; 93005; 96365; 96367; 96372; 96375; 97116; 97161; 99285; G0378; J1170; J1200; J1644; J1815; J2270; J2405; J2543; J2765; J2920; J3480; J7030; Q9967

== ENCOUNTER 2022-12-11 09:54 | Outpatient (CLI) | payer MEDICARE, OTHER, SELFPAY ==
--- NOTE | 2022-12-11 10:07 | XR_ITS ---
WS: [id number] KUB, AP view, 12/11/2022 Clinical Data: Urolithiasis Comparison: KUB, 11/24/2022 Findings: No abnormal intraabdominal masses are seen. There are probably calcifications overlying the right kid anisha but they're obscured by overlying fecal material. The left kidney is obscured by colon gas. There are phleboliths in the true pelvis. There is no dilatated small bowel or evidence of obstruction. There is a large amount of fecal material throughout the colon. XR/XR KUB [id number] Impression: Probable right renal calcifications.
== END 2022-12-11 09:55 | disposition home or self-care (01) ==
LOC: RAD 10:00
PROVIDERS: PCP Family Medicine; Visit Provider Urology
DX: N20.9 Urinary calculus, unspecified (principal); Z87.440 Personal history of urinary (tract) infections
CPT/HCPCS: 74018; 81003; 99213

== ENCOUNTER → 2023-01-08 14:20 | Outpatient (BNVA) | payer MEDICARE, OTHER, SELFPAY | PROVIDERS: PCP Family Medicine; Visit Provider Specialist | DX: E11.40 Type 2 diabetes mellitus with diabetic neuropathy, unspecified (principal); Z79.4 Long term (current) use of insulin; Z79.891 Long term (current) use of opiate analgesic | CPT/HCPCS: 99213 ==

== ENCOUNTER → 2023-03-20 15:50 | Outpatient (BNVA) | payer MEDICARE, OTHER, SELFPAY | PROVIDERS: PCP Family Medicine; Visit Provider Family Medicine | DX: J01.00 Acute maxillary sinusitis, unspecified (principal); G43.009 Migraine without aura, not intractable, without status migrainosus; E11.9 Type 2 diabetes mellitus without complications; R79.89 Other specified abnormal findings of blood chemistry; I25.10 Atherosclerotic heart disease of native coronary artery without angina pectoris | CPT/HCPCS: 80053; 80061; 83036; 84443; 85025 ==

== ENCOUNTER 2023-03-27 12:34 | Inpatient (IN) | payer MEDICARE, OTHER, SELFPAY ==
[2023-03-27] VITALS (19 sets, daily range): BP systolic 137–225; BP diastolic 78–124; PULSE 80–114; RESP 11–24; TEMP 36.4–37; O2SAT 92–100
--- NOTE | 2023-03-27 12:48 | ECG_ITS ---
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 Measurements Intervals [place] Rate: 83 P: -9 [place]: 153 QRS: 62 QRSD: 142 T: -35 QT: 440 QTc: 519 Interpretive Statements SINUS RHYTHM WITH MARKED SINUS ARRHYTHMIA LEFT BUNDLE BRANCH BLOCK [120+ ms QRS DURATION, 80+ ms Q/S IN V1/V2, 85+ ms R IN I/aVL/V5/V6] Compared to ECG 11/22/2022 15:39:44 No significant changes Electronically Signed On 03-27-2023 19:47:08 CDT by Sandip Sweet M.D. [id number]
--- NOTE | 2023-03-27 12:53 | XRR_ITS ---
PROCEDURE INFORMATION: Exam: XR Chest Exam date and time: 03/27/2023 1:00 PM Age: 77 years old Clinical indication: Cough and dyspnea; Prior surgery; Surgery date: 6+ months; Surgery type: Cholecystectomy, hysterectomy, appendectomy; Additional info: Dyspnea/cough.No history of trauma or recent surgery is provided. TECHNIQUE: Imaging protocol: Radiologic exam of the chest. 1image(s) are provided. Views: 1 view. COMPARISON: 1. CR XR chest 1V portable [id number] 09/14/2022 10:[address] lung base report of 11/25/2022. 2. CR XR chest 1V portable [id number] 06/06/2022 6:05 PM FINDINGS: Lungs: There is some granulomatous type appearance about the right upper lung zone similar overall. No lobar consolidation is appreciated. There is some patchy ground-glass attenuation of the lower lung zones left more so than right. There is some subsegmental atelectasis versus post inflammatory scarring demonstrated. Pleural spaces: There is some marginal costophrenic angle blunting. No pneumothorax is appreciated. Heart/Mediastinum: The cardiomediastinal silhouette is upper normal in size. This can be seen with central averaging as well as scarlett enlargement.No cardiac decompensation is appreciated. Diaphragm: There is slight asymmetric right hemidiaphragm elevation. Bones/joints: There is some chronic widening or interventional change about the right acromioclavicular junction similar. Soft tissues: No radiopaque foreign body or subcutaneous emphysema is appreciated. Other findings: There is overlying external clothing artifact. Central aeration appears improved. No other significant interval changes are appreciated. XR/XR chest 1V portable [id number] IMPRESSION: There is decreased central interstitial edematous appearance overall as compared to the previous study with improved central aeration. There is however some ground-glass attenuation of the lower lung zones suggestive of some peribronchial inflammation left lung base more so than right. No lobar consolidation or cardiac decompensation is appreciated.
[2023-03-27 13:31] LABS: Basophils # 0.1 10^3/uL (0.0-0.1); Basophils % 0.3 %; Eosinophils % 0.1 %; Hematocrit 39.8 % (37.0-47.0); Hemoglobin 12.8 g/dL (11.5-15.3); Lymphocytes # 2.2 10^3/uL (0.8-4.8); Lymphocytes % 14.7 %; Mean Corpuscular HGB Conc 32.2 g/dL (30.0-36.0); Mean Corpuscular Hemoglobin 28.4 pg (28.0-34.0); Mean Corpuscular Volume 88.4 fl (81-99); Mean Platelet Volume 10.7 fL (7.4-10.4); Monocytes # 0.4 10^3/uL (0.2-0.9); Monocytes % 2.5 %; Neutrophils # 11.99 10^3/uL (1.8-7.7); Neutrophils % 81.9 %; Nucleated Red Blood Cells % 0 %; Platelet Count 353 10^3/cmm (130-400); Red Cell Distribution Width 13.2 % (12.1-15.1); White Blood Count 14.7 10^3/uL (4.0-10.0)
[2023-03-27] MEDS: ondansetron 2 mg/ML SDV 2 mL 4 MG IVP ×2 (13:40→20:27)
[2023-03-27] MEDS: hyDRALAzine 20 mg/mL INJ 1 mL 10 MG IVP (13:40)
[2023-03-27] MEDS: labetalol 5 mg/mL SDV 20mL 10 MG IVP (13:40)
[2023-03-27] MEDS: morphine 4 mg/mL SDV 1 mL IVP ×2 (13:40→18:27)
[2023-03-27 13:53] LABS: Alanine Aminotransferase 10 U/L (0-33); Albumin Level 4.4 g/dL (3.5-5.2); Alkaline Phosphatase 133 U/L (35-105); Anion Gap 24.2 (5-19); Aspartate Amino Transferase 13 U/L (0-32); Blood Urea Nitrogen 16 mg/dL (8-23); Calcium 9.5 mg/dL (8.5-10.5); Carbon Dioxide 21 mmol/L (22-29); Chloride 94 mmol/L (98-107); Globulin 3.3 g/dL (1.3-4.6); Glucose 357 mg/dL (65-115); Lipase 12 U/L (13-60); Osmolality Calculated 298 mOsm/kg (285-295); Potassium 3.2 mmol/L (3.5-5.1); Sodium 136 mmol/L (136-145); Total Bilirubin 0.8 mg/dL (0.15-1.2); Total Protein 7.7 g/dL (6.6-8.7)
[2023-03-27] MEDS: nitroglycerin drip 50 MG/250 ML PREMIX IV (14:00)
--- NOTE | 2023-03-27 14:32 | CT_ITS ---
WS: [id number] CT HEAD TECHNIQUE: Noncontrast CT of the head obtained from the skullbase to the vertex. CLINICAL INFORMATION: vomitting/CABALLERO/accelerated BP COMPARISON: 2017 DLP: 1097.[address] scans at [facility] use at least one of these dose optimization techniques: automated e xposure control; mA and/or kV adjustment per patient size (includes targeted exams where dose is matc hed to clinical indication); or iterative reconstruction. FINDINGS: No evidence of intracranial hemorrhage or mass effect. Ventricular system and basal cisterns are castillo nt. Mild small vessel changes with moderate parenchymal volume loss. No extra-axial fluid collections . No evidence of mass or mass effect. Paranasal sinuses and mastoid air cells are well aerated. .Normal visualized soft tissues. CT/CT head wo con* [id number] IMPRESSION: 1. No evidence of intracranial hemorrhage or mass effect. 2. Mild small vessel changes. Moderate parenchymal volume loss. 3. Intracranial vascular calcification. 4. No acute intracranial findings.
[2023-03-27 14:37] LABS: Troponin(5th) Baseline 11 ng/L (0-10)
[2023-03-27] MEDS: sodium chloride 0.9% 500 ML 999 ML IV (14:51)
--- NOTE | 2023-03-27 14:53 | ECG_ITS ---
[facility] Test Date: 2023-03-27 Pat Name: Evelyn Farley Department: Room: Gender: Female Inspector Publications: : 1945 Requested By: Jeremias Crystal Order Number: [id number] Beverley MD: Sandip Sweet M.D. Measurements Intervals [place] Rate: 75 P: 73 GA: 134 QRS: 3 QRSD: 145 T: 128 QT: 490 QTc: 549 Interpretive Statements SINUS RHYTHM WITH FREQUENT SUPRAVENTRICULAR PREMATURE COMPLEXES LEFT BUNDLE BRANCH BLOCK [120+ ms QRS DURATION, 80+ ms Q/S IN V1/V2, 85+ ms R IN I/aVL/V5/V6] Compared to ECG 03/27/2023 12:48:42 Sinus arrhythmia no longer present Electronically Signed On 03-27-2023 19:48:25 CDT by Sandip Sweet M.D. [id number]
[2023-03-27 14:59] LABS: Glucose Point of Care 457 mg/dL (70-110)
[2023-03-27 14:59] LABS: Ketone (Acetest) Serum Negative (Negative)
[2023-03-27] MEDS: insulin regular-human 100 units/1 mL 10 UNIT IVP (14:59)
--- NOTE | 2023-03-27 15:18 | W.ED.NAVMDI ---
HPI - Nausea/Vomiting/Diarrhea General: Chief complaint: Nausea/Vomiting/Diarrhea Stated complaint: vomitting x2 days Time Seen by Provider: 03/27/23 12:43 Source: patient Mode of arrival: ambulatory History of Present Illness: 77-year-old female presents emergency room complaining of nausea vomiting and diarrhea for the last 2 days denies any fever sweats or chills. She states she also has some chest discomfort. She does have a known history of coronary disease had heart stents placed approximately a year ago. She had vomited in route here. She denies any dysuria urgency or frequency no hematochezia or melena. She has not noticed anything that makes her symptoms better or worse. MD elicited complaint: nausea and vomiting Onset (ago): day(s) (2) Description of vomiting: bilious Associated nausea: Yes Associated abdominal pain: Yes Location of pain: Diffuse Quality: cramping Exacerbating factors: none Relieving factors: none Associated symtoms: Reports chest pain and nausea; Denies anxiety, bloating, change in vision, cough, diaphoresis, decreased urine output, dizziness, dysuria, epistaxis, fatigue, fecal incontinence, fevers/chills, headache(s), anorexia, malaise, myalgias, numbness, palpitations, rash, short of breath, syncope, tenesmus, tinnitus or weakness Review of Systems Const: Reports: fever(s); Denies: chills, fatigue, malaise or diaphoresis Eyes: Denies: change in vision ENMT: Denies: tinnitus or epistaxis Card: Reports: chest pain; Denies: palpitations or syncope Resp: Denies: dyspnea, productive cough or non-productive cough GI: Reports: abdominal pain, nausea, vomiting and diarrhea; Denies: bloating or fecal incontinence : Denies: dysuria, urinary frequency or urinary urgency Musc: Denies: neck pain or back pain Skin/Breast: Denies: rash or pruritus Neuro: Denies: headache(s) or dizziness Psych: Denies: anxiety PFSH ED PFSH: Medical History (Updated 03/28/23 @ 16:01 by Jeremias Galicia DO) Abdominal pain Acidosis, lactic Anxiety and depression ASHD (arteriosclerotic heart disease) Cataracts, bilateral Chest pain CKD (chronic kidney disease) Colitis Colitis Constipation Continuous severe abdominal pain Dehydration Diabetes Diabetic ketoacidosis Diabetic neuropathy Diabetic peripheral neuropathy DKA (diabetic ketoacidosis) Fibromyalgia Gastroparesis Gram-positive bacteremia History of recurrent UTI (urinary tract infection) Hyperglycemia Hyperlipidemia Hypertension Hypokalemia Hypokalemia Hypophosphatemia Insomnia Intractable abdominal pain Intractable vomiting with nausea Left renal stone Left ureteral calculus Leukocytosis Leukocytosis Migraine Nausea and vomiting Nausea, vomiting, and diarrhea NSTEMI (non-ST elevated myocardial infarction) Odynophagia Pyelonephritis Pyuria Shingles Ureterolithiasis Urolithiasis Yeast vaginitis Surgical History H/O angioplasty H/O carpal tunnel repair H/O: hysterectomy History of cholecystectomy S/P ureteral stent placement Family History Mother , at age 65 Heart attack Father , at age 63 Heart attack Other Diabetes Hypertension Social History Smoking and tobacco status: never smoked Second hand smoke exposure: No Alcohol intake: never Substance/Drug Use: never Adopted: No Caregiver/support person: Yes (spouse) Lives independently: Yes Household members: spouse Marital status: service: No Current occupational status: retired Current gender identity: Female Special vandana needs: No Agree to transfusion: Yes Physical Exam Const: GENERAL APPEARANCE: cooperative and comfortable ORIENTATION/CONSCIOUSNESS: Yes awake, Yes oriented to person, Yes oriented to place and Yes oriented to time HENMT: COMMON NORMALS: normocephalic, atraumatic and hearing grossly normal bilaterally HEAD & SCALP: normocephalic and atraumatic Resp: COMMON NORMALS: normal respiratory effort, No retractions, No use of accessory muscles and clear to auscultation bilaterally AUSCULTATION: clear to auscultation bilaterally Cardio: COMMON NORMALS: regular rate, regular rhythm and No murmurs present (Cardio) RATE: regular rate RHYTHM: regular rhythm GI: COMMON NORMALS: Soft to palpation and No hepatosplenomegaly present AUSCULTATION: Yes normoactive bowel sounds PALPATION: Yes Soft to palpation, No Tenderness to palpation present (GI), No Guarding due to palpation present (GI) and Yes No hepatosplenomegaly present Extremity: COMMON NORMALS: normal to inspection, capillary refill normal, no clubbing, cyanosis or edema, no calf tenderness and no pedal edema Neuro: SENSORIUM/ORIENTATION: Yes oriented to person, Yes oriented to place and Yes oriented to time Skin: COMMON NORMALS: no rashes or lesions noted GENERAL SKIN EXAM: no rashes or lesions noted Procedures Central Line Placement Right IJ: Time Out Performed: Yes Patient Placed on Monitor/Pulse Ox: Yes MD Prep: mask, gown and gloves Central Line Prep: Chlorhexidine scrub Local Anesthetic: lidocaine 1% Amount of anesthesia used (mL): 5 Ultrasound Used for Placement: Yes Central Line Lumen Inserted: triple Post Procedure: sutured in place Post Procedure X-Ray: tip of catheter in good position Patient Tolerated Procedure: well Complications: none Course Vital Signs: Vital signs: Vital Signs Temperature 99.4 F 03/28/23 00:15 Pulse Rate 82 03/28/23 15:00 Respiratory Rate 21 H 03/28/23 15:00 Blood Pressure 163/77 03/28/23 15:00 Pulse Oximetry 96 03/28/23 14:30 Oxygen Delivery Me thod Room Air 03/28/23 08:00 MDM - Nausea/Vomiting/Diarrhea Medical Decision Making CT shows colitis. Sepsis secondary to colitis with elevated lactic acid. Blood pressure elevated. Did not give a sepsis bolus due to the fact that we were actually trying to control the patient's elevated blood pressure. She has a mild acute kidney injury patient has been given fluids started on antibiotics. No signs of perforation discussed with hospitalist orders written central line placed due to difficulty with IV access. Medical Records I reviewed the patient's medical records. Lab Data I reviewed the patient's lab results. 03/28/23 02:13 03/28/23 02:[address] 03/27/23 14:32 IMPRESSION: 1. No evidence of intracranial hemorrhage or mass effect. 2. Mild small vessel changes. Moderate parenchymal volume loss. 3. Intracranial vascular calcification. 4. No acute intracranial findings. Abdomen/Pelvis CT 03/27/23 16:14 IMPRESSION: 1. Diffuse mural thickening of the colon with minimal stranding of the pericolonic fat. Findings are suggestive of nonspecific colitis. 2. No acute abnormality of the solid organs demonstrated. Chest X-Ray 03/27/23 18:18 IMPRESSION: 1. New right jugular central line with tip overlying right atrium. No pneumothorax. 2. Mild cardiomegaly is noted. 3. Mild pulmonary venous congestion. No consolidative pulmonary infiltrate noted. Laboratory Results WBC 14.7 10^3/uL (4.0-10.0) H 03/27/23 13:20 RBC 4.50 10^6/uL (4.1-5.3) 03/27/23 13:20 Hgb 12.8 g/dL (11.5-15.3) 03/27/23 13:20 Hct 39.8 % (37.0-47.0) 03/27/23 13:20 MCV 88.4 fl (81-99) 03/27/23 13:20 MCH 28.4 pg (28.0-34.0) 03/27/23 13:20 MCHC 32.2 g/dL (30.0-36.0) 03/27/23 13:20 RDW 13.2 % (12.1-15.1) 03/27/23 13:20 Plt Count 353 10^3/cmm (130-400) 03/27/23 13:20 MPV 10.7 fL (7.4-10.4) H 03/27/23 13:20 Neut % (Auto) 81.9 % 03/27/23 13:20 Lymph % (Auto) 14.7 % 03/27/23 13:20 [place] % (Auto) 2.5 % 03/27/23 13:20 Eos % (Auto) 0.1 % 03/27/23 13:20 Baso % (Auto) 0.3 % 03/27/23 13:20 Neut # (Auto) 11.99 10^3/uL (1.8-7.7) H 03/27/23 13:20 Lymph # (Auto) 2.2 10^3/uL (0.8-4.8) 03/27/23 13:20 [place] # (Auto) 0.4 10^3/uL (0.2-0.9) 03/27/23 13:20 Eos # (Auto) 0.0 10^3/uL (0.0-0.8) 03/27/23 13:20 Baso # (Auto) 0.1 10^3/uL (0.0-0.1) 03/27/23 13:20 Nucleated RBC % (auto) 0 % 03/27/23 13:20 Nucleated RBCs # 0.0 /100WBC 03/27/23 13:20 Sodium 136 mmol/L (136-145) 03/27/23 13:20 Potassium 3.2 mmol/L (3.5-5.1) L 03/27/23 13:20 Chloride 94 mmol/L (98-107) L 03/27/23 13:20 Carbon Dioxide 21 mmol/L (22-29) L 03/27/23 13:20 Anion Gap 24.2 (5-19) H 03/27/23 13:20 BUN 16 mg/dL (8-23) 03/27/23 13:20 Creatinine 1.2 mg/dL (0.5-0.9) H 03/27/23 13:20 GFR Calculation Not Reportable 03/27/23 13:20 Glucose 357 mg/dL (65-115) H 03/27/23 13:20 POC Glucose 457 mg/dL (70-110) H 03/27/23 14:55 Calculated Osmolality 298 mOsm/kg (285-295) H 03/27/23 13:20 Lactic Acid 6.2 mmol/L (0.5-2.2) H* 03/27/23 16:00 Calcium 9.5 mg/dL (8.5-10.5) 03/27/23 13:20 Total Bilirubin 0.8 mg/dL (0.15-1.2) 03/27/23 13:20 AST 13 U/L (0-32) 03/27/23 13:20 ALT 10 U/L (0-33) 03/27/23 13:20 Alkaline Phosphatase 133 U/L (35-105) H 03/27/23 13:20 Troponin T Baseline 11 ng/L (0-10) H 03/27/23 13:20 Troponin T 120 Minute 12.18 ng/L (0-10) H 03/27/23 15:50 Delta Troponin T 1.18 ABS# (0-10) 03/27/23 15:50 Total Protein 7.7 g/dL (6.6-8.7) 03/27/23 13:20 Albumin 4.4 g/dL (3.5-5.2) 03/27/23 13:20 Globulin 3.3 g/dL (1.3-4.6) 03/27/23 13:20 Lipase 12 U/L (13-60) L 03/27/23 13:20 Urine Color Light yellow (Yellow) 03/27/23 16:22 Urine Appearance Clear (CLEAR) 03/27/23 16:22 Urine pH 7 (5-7) 03/27/23 16:22 Ur Specific [place] 1.010 (1.005-1.030) 03/27/23 16:22 Urine Protein Trace (Negative) 03/27/23 16:22 Urine Glucose (UA) 4+ (Normal) H 03/27/23 16:22 Urine Ketones 1+ (Negative) H 03/27/23 16:22 Urine Blood Neg (Negative) 03/27/23 16:22 Urine Nitrate Negative (Negative) 03/27/23 16:22 Urine Bilirubin Neg (Negative) 03/27/23 16:22 Urine Urobilinogen Norm mg/dL (Negative) 03/27/23 16:22 Ur Leukocyte Esterase Negative (Negative) 03/27/23 16:22 Urine RBC 5-10 /hpf (0-2) H 03/27/23 16:22 Urine WBC 0-4 /hpf (0-5) H 03/27/23 16:22 Ur Squamous Epith Cells None /hpf (0-5) 03/27/23 16:22 Amorphous Sediment Not Reportable 03/27/23 16:22 Urine Bacteria None /hpf (NONE) 03/27/23 16:22 Serum Ketones Negative (Negative) 03/27/23 13:20 Discharge Plan Discharge Patient Disposition: Admitted As Inpatient Admit Provider: Abbey Jacinto Clinical Impression: Sepsis, ASHD (arteriosclerotic heart disease), Colitis, AMY (acute kidney injury), Hypertension Condition: Stable Coding Level of Care Code ED [employer] for Melissa King
[2023-03-27] MEDS: morphine 4 mg/mL SDV 1 mL 2 MG IVP (15:51)
[2023-03-27] MEDS: promethazine 25 mg/mL SDV 1 mL IM (15:52)
[2023-03-27] MEDS: sodium chloride 0.9% 500 ML IV (16:00)
--- NOTE | 2023-03-27 16:14 | CTR_ITS ---
PROCEDURE INFORMATION: Exam: CT Abdomen And Pelvis Without Contrast Exam date and time: 03/27/2023 4:27 PM Age: 77 years old Clinical indication: Nausea and vomiting; Prior surgery; Surgery date: 6+ months; Surgery type: Agueda, hyst; Additional info: Abdominal pain TECHNIQUE: Imaging protocol: Computed tomography of the abdomen and pelvis without contrast. Radiation optimization: All CT scans at this facility use at least one of these dose optimization techniques: automated exposure control; mA and/or kV adjustment per patient size (includes targeted exams where dose is matched to clinical indication); or iterative reconstruction. REPORTING DATA: Count of CT and Cardiac NM exams in prior 12 months: This patient has received 7 known CTs and 0 known cardiac nuclear medicine studies in the 12 months prior to the current study. COMPARISON: CT abdomen pelvis wo con [id number] 11/22/2022 2:43 PM RADIATION DOSE METRICS: Total DLP (mGy-cm): 510.67 FINDINGS: Lungs: The lung bases appear unremarkable. Diaphragm: There is a small hiatal hernia present. Liver: The liver is unremarkable in appearance. Gallbladder and bile ducts: Status post cholecystectomy. Common duct measures 12 mm in diameter, likely secondary to prior cholecystectomy. No calcified common duct calculus noted. Pancreas: The pancreas is normal in appearance. No pancreatic duct dilatation. Spleen: No focal splenic lesion. No splenomegaly. Adrenal glands: The adrenal glands appear within normal limits. Kidneys and ureters: Cortical scarring and calcification noted in the right kidney. No renal cyst or mass. No hydronephrosis. Normal ureters. No obstructive uropathy. Stomach and bowel: No acute gastric abnormality demonstrated. The small bowel is unremarkable as demonstrated. Diffuse mural thickening of the colon with minimal stranding of the pericolonic fat. Appendix: No evidence of appendicitis. Intraperitoneal space: No free air. No significant fluid collection. Vasculature: The aorta is atherosclerotic. No aortic aneurysm. Lymph nodes: No pathologically enlarged lymph nodes are demonstrated. Urinary bladder: The urinary bladder is unremarkable in appearance. Reproductive: Status post hysterectomy. Bones/joints: Mild degenerative spine changes are noted. No acute osseous abnormality. Soft tissues: Unremarkable. CT/CT abdomen pelvis wo con [id number] IMPRESSION: 1. Diffuse mural thickening of the colon with minimal stranding of the pericolonic fat. Findings are suggestive of nonspecific colitis. 2. No acute abnormality of the solid organs demonstrated.
[2023-03-27 16:29] LABS: Lactic Sepsis W/Reflex 6.2 mmol/L (0.5-2.2)
[2023-03-27 16:51] LABS: Troponin 5 2HR 12.18 ng/L (0-10)
[2023-03-27 16:55] LABS: Troponin 5 2HR Delta 1.18 ABS# (0-10)
[2023-03-27 16:59] LABS: Add Urine Microscopic? YES; Bilirubin Urine Neg (Negative); Blood Urine Neg (Negative); Glucose Urine UA 4+ (Normal); Ketones Urine 1+ (Negative); Leukocyte Esterase Urine Negative (Negative); Nitrate Urine Negative (Negative); Protein Urine Trace (Negative); Urine Appearance Clear (CLEAR); Urine Color Light yellow (Yellow); Urobilinogen Urine Norm (Negative); pH Urine 7 (5-7)
[2023-03-27 17:01] LABS: Add Urine Culture? No; WBC Urine 0-4 /hpf (0-5)
[2023-03-27 17:50] LABS: Reflex Lactate Order REFLEX LACTIC ORDERD
--- NOTE | 2023-03-27 18:18 | XRR_ITS ---
PROCEDURE INFORMATION: Exam: XR Chest Exam date and time: 03/27/2023 6:22 PM Age: 77 years old Clinical indication: Device placement; Other: Central line placement TECHNIQUE: Imaging protocol: Radiologic exam of the chest. Views: 1 view. COMPARISON: CR XR chest 1V portable [id number] 03/27/2023 1:00 PM FINDINGS: Tubes, catheters and devices: New right jugular central line with tip overlying right atrium. Lungs: Mild pulmonary venous congestion. No consolidative pulmonary infiltrate noted. Pleural spaces: No pleural effusion. No pneumothorax. Heart/Mediastinum: Mild cardiomegaly is noted. Vasculature: The thoracic aorta is atherosclerotic. Bones/joints: Degenerative lumbar spine changes are noted. XR/XR chest 1V portable [id number] IMPRESSION: 1. New right jugular central line with tip overlying right atrium. No pneumothorax. 2. Mild cardiomegaly is noted. 3. Mild pulmonary venous congestion. No consolidative pulmonary infiltrate noted.
[2023-03-27] MEDS: metoclopramide 5 mg/mL SDV 2 mL 10 MG IVP (18:27)
[2023-03-27] MEDS: metroNIDAZOLE IV 500 MG/100 ML PREMIX 100 MG IV (18:39)
[2023-03-27] MEDS: ciprofloxacin 400 MG/200 ML PREMIX 200 MG IV (18:39)
--- NOTE | 2023-03-27 18:56 | ECG_ITS ---
[facility] Test Date: 2023-03-27 Pat Name: Evelyn Farley Department: Room: ICU03 Gender: Female [employer] Intern: : 1945 Requested By: Jeremias Crystal Order Number: [id number] Beverley MD: Sandip Sweet M.D. Measurements Intervals [place] Rate: 104 P: -55 MN: 263 QRS: -17 QRSD: 135 T: 110 QT: 411 QTc: 541 Interpretive Statements Sinus tachycardia LEFT ATRIAL ENLARGEMENT [-0.15mV P-WAVE IN V1/V2] LEFT BUNDLE BRANCH BLOCK [120+ ms QRS DURATION, 80+ ms Q/S IN V1/V2, 85+ ms R IN I/aVL/V5/V6] Compared to ECG 03/27/2023 14:58:49 First degree AV block now present Atrial abnormality now present Electronically Signed On 03-27-2023 19:47:54 CDT by Sandip Sweet M.D. [email or web address]
--- NOTE | 2023-03-27 18:58 | P.HP_ITS ---
Providers/Chief Complaint Admitting Physician: Abbey Jacinto MD Primary Care Provider: Jane Strickland MD Chief Complaint: vomitting x2 days History of Present Illness Evelyn Farley is a 77 year old female Presented today with chief abdominal pain, she has been experiencing multiple episodes of emesis long diarrhea. is at the bedside who stating that his has been sick for last 4 days he started with diarrhea they have not noticed any fever but today she started vomiting her pain got worse that prompted her visit to the ER in the ER she was diagnosed with diffuse colitis she has been put on antibiotics and nitroglycerin drip because of her hypertension. Central line was placed by the ER physician Lactic acid is high with leukocytosis Patient care history of coronary disease take aspirin and Plavix intermittent history of A-fib but in the ER she is in sinus rhythm Review of Systems Const: Reports: chills Eyes: Denies: change in vision ENMT: Denies: throat pain Card: Denies: chest pain Resp: Denies: dyspnea GI: Reports: abdominal pain, nausea and vomiting : Denies: flank pain Musc: Denies: neck pain Skin/Breast: Denies: rash Neuro: Denies: headache(s) Psych: Denies: anxiety Endo: Denies: polyuria Alen/Lymph: Denies: easy bruising All/Imm: Denies: urticaria Medications/Allergies Home Medications Medication Instructions Recorded Confirmed Last Taken Type blood-glucose meter #1 ea 11/19/19 03/20/23 Unknown Rx insulin aspart U-100 100 unit/mL 5 unit (0.05 mL) SUBCUT TID 30 09/26/21 03/20/23 11/21/22 Rx (3 mL) subcutaneous pen (Novolog days #4.5 mL FlexPen U-100 Insulin aspart) multivitamin 1 tab PO QAM 05/23/22 03/20/23 11/21/22 History aspirin 81 mg tablet,delayed 81 mg PO BEDTIME 30 days #30 tabs 09/11/22 03/20/23 11/21/22 Rx release (Adult Low Dose Aspirin) nitroglycerin 0.4 mg sublingual 0.4 mg sublingual Q5M PRN chest 09/11/22 03/20/23 Unknown Rx tablet pain #30 tabs blood sugar diagnostic (Accu-Chek #100 ea 10/01/22 03/20/23 Unknown Rx Merced Plus test strips) pen needle, diabetic 29 gauge x #100 ea 10/01/22 03/20/23 Unknown Rx 1/2 (1st Tier Unifine Pentips) metoprolol tartrate 100 mg tablet 100 mg PO Q12H 11/22/22 03/20/23 11/21/22 His tory ramipril 5 mg capsule 5 mg PO BEDTIME 11/22/22 03/20/23 11/21/22 History blood sugar diagnostic (Accu-Chek #100 ea 11/28/22 03/20/23 Unknown Rx Merced Plus test strips) rosuvastatin 40 mg tablet 40 mg PO BEDTIME #30 tabs 12/04/22 03/20/23 Unknown Rx blood-glucose meter,continuous #1 ea 12/13/22 03/20/23 Unknown Rx (Dexcom G7 Screen Machine Operator) blood-glucose sensor (Dexcom G7 #1 ea 12/13/22 03/20/23 Unknown Rx Sensor device) omeprazole 20 mg capsule,delayed See Rx Instructions .Route 12/24/22 03/20/23 Unknown Rx release .COMPLEX #60 caps clopidogrel 75 mg tablet See Rx Instructions .Route 01/09/23 03/20/23 Unknown Rx .COMPLEX #30 tabs pen needle, diabetic 32 gauge x #100 ea 02/14/23 03/20/23 Unknown Rx (TechLITE Pen Needle) ondansetron HCl 8 mg tablet See Rx Instructions .Route 03/18/23 03/20/23 Unknown Rx .COMPLEX #30 tabs azithromycin 250 mg tablet See Rx Instructions PO .COMPLEX #6 03/20/23 03/20/23 Unknown Rx (Zithromax Z-Moris) tabs promethazine-DM 6.25 mg-15 mg/5 mL 5 ml PO Q6H PRN cough #160 mL 03/20/23 03/20/23 Unknown Rx oral syrup sumatriptan succinate 100 mg tablet See Rx Instructions PO .COMPLEX 03/20/23 03/20/23 Unknown Rx #14 tabs insulin detemir U-100 100 unit/mL See Rx Instructions .Route 03/22/23 Unknown Rx (3 mL) subcutaneous pen (Levemir .COMPLEX #40 mL FlexPen) hydrocodone 5 mg-acetaminophen 325 1 tab PO Q8H PRN pain 30 days #90 03/26/23 Unknown Rx mg tablet tabs Allergies Allergy/AdvReac Type Severity Reaction Status Date / Time gabapentin Allergy hallucinati Verified 03/20/23 13:19 ons Iodinated Contrast Media Allergy Unknown Verified 03/20/23 13:19 nifedipine [From Procardia] Allergy Unknown Verified 03/20/23 13:19 prochlorperazine Allergy Unknown Verified 03/20/23 13:19 [From Compazine] PFSH Acute PFSH: Medical History (Updated 03/27/23 @ 19:16 by Abbey Jacinto MD) Abdominal pain Acidosis, lactic Anxiety and depression ASHD (arteriosclerotic heart disease) Cataracts, bilateral Chest pain CKD (chronic kidney disease) Colitis Colitis Constipation Continuous severe abdominal pain Dehydration Diabetes Diabetic ketoacidosis Diabetic neuropathy Diabetic peripheral neuropathy DKA (diabetic ketoacidosis) Fibromyalgia Gastroparesis Gram-positive bacteremia History of recurrent UTI (urinary tract infection) Hyperglycemia Hyperlipidemia Hypertension Hypokalemia Hypokalemia Hypophosphatemia Insomnia Intractable abdominal pain Intractable vomiting with nausea Left renal stone Left ureteral calculus Leukocytosis Leukocytosis Migraine Nausea and vomiting Nausea, vomiting, and diarrhea NSTEMI (non-ST elevated myocardial infarction) Odynophagia Pyelonephritis Pyuria Shingles Ureterolithiasis Urolithiasis Yeast vaginitis Surgical History H/O angioplasty H/O carpal tunnel repair H/O: hysterectomy History of cholecystectomy S/P ureteral stent placement Family History Mother , at age 65 Heart attack Father , at age 63 Heart attack Other Diabetes Hypertension Social History Smoking and tobacco status: never smoked Second hand smoke exposure: No Alcohol intake: never Substance/Drug Use: never Adopted: No Caregiver/support person: Yes (spouse) Lives independently: Yes Household members: spouse Marital status: service: No Current occupational status: retired Current gender identity: Female Special vandana needs: No Agree to transfusion: Yes Vitals/I&O/Wt Last Vital Signs Temp 97.6 F 03/27/23 12:45 Pulse 80 03/27/23 13:36 Resp 15 03/27/23 13:36 BP 225/88 03/27/23 13:36 Pulse Ox 98 03/27/23 13:36 O2 Del Method Room Air 03/27/23 12:45 03/27/23 03/27/23 03/27/23 06:59 14:59 22:59 Intake Total 2.5 / 2.5 1000 / 1002.5 Balance 2.5 / 2.5 1000 / 1002.5 Weight last 48 hrs Weight 63.503 kg Physical Exam Narrative: Patient is laying supine She has a right sided central line in place Abdomen tender to palpation Patient is hypertensive is at the bedside Patient is able to answer my questions Nonfocal neuro exam Clinically looks dehydrated S1, S2 Patient is hypertensive Data 03/27/23 13:20 03/27/23 13:20 Micro: Microbiology 03/27/23 16:00 Blood Culture - Preliminary Blood SPECIMEN COLLECTED 03/27/23 15:50 Blood Culture - Preliminary Blood SPECIMEN COLLECTED A&P Assessment and plan (1) Sepsis: (2) Colitis: (3) AMY (acute kidney injury): Plan Sepsis related to colitis CT of the pelvis showing diffuse colitis Concern is related to ischemic colitis we will start IV fluids along heparin and antibiotics Monitor in ICU Sepsis related to colitis Septic bolus Start antibiotics Repeat lactic acid No signs of septic shock Patient currently is hypotensive Hypertensive emergency: Endorgan damage Currently on nitroglycerin drip AMY related to sepsis Hypokalemia: Repleted DNR/DNI CODE STATUS discussed with the patient and family at the bedside N.p.o. Attestations Medical Necessity Statement*: More than 2 midnights anticipated Diagnoses Sepsis A41.9 Colitis K52.9 AMY (acute kidney injury) N17.9
[2023-03-27 19:41] LABS: Lactic Acid level (Lactate) 3.7 mmol/L (0.5-2.2)
[2023-03-27 19:45] LABS: Troponin 5 6HR 18.27 ng/L (0-10)
[2023-03-27 19:47] LABS: Troponin 5 6HR Delta 7.27 ng/L (0-12)
[2023-03-27] MEDS: lidocaine 1% 5 ML in potassium chloride premix 100 ML 25 ML IV (20:23)
[2023-03-27] MEDS: sodium chloride 0.9% 1,905.09 ML 1905.09 ML IV (20:31)
[2023-03-27] MEDS: enoxaparin 60 mg/0.6 mL Syringe SUBCUT (20:34)
[2023-03-27] MEDS: metoprolol tartrate 50 mg Tablet 100 MG PO (20:36)
[2023-03-27 20:44] LABS: Glucose Point of Care 483 mg/dL (70-110)
[2023-03-27 21:10] LABS: Lactate (Lactic Acid level) 3.9 mmol/L (0.5-2.2)
[2023-03-27] MEDS: insulin lispro 100 unit/1 mL 12 UNIT SUBCUT (21:18)
[2023-03-27] MEDS: sodium chloride 0.9% 1,000 ML 75 ML IV (22:38)
[2023-03-28] VITALS (66 sets, daily range): BP systolic 93–194; BP diastolic 47–123; PULSE 65–115; RESP 1–31; TEMP 36.9–37.4; O2SAT 91–100
[2023-03-28] MEDS: ondansetron 2 mg/ML SDV 2 mL 4 MG IVP ×2 (00:16→19:10)
[2023-03-28] MEDS: pantoprazole 40 mg SDV IVP ×3 (00:32→17:51)
[2023-03-28] MEDS: LORazepam 2 mg/mL INJ 1 mL 0.5 MG IVP ×2 (01:42→05:26)
[2023-03-28] MEDS: metroNIDAZOLE IV 500 MG/100 ML PREMIX 100 MG IV ×3 (01:43→16:33)
[2023-03-28 02:14] LABS: Glucose Point of Care 404 mg/dL (70-110)
[2023-03-28] MEDS: morphine 4 mg/mL SDV 1 mL IVP (03:15)
[2023-03-28] MEDS: ciprofloxacin 400 MG/200 ML PREMIX 200 MG IV ×3 (03:25→17:58)
[2023-03-28 03:42] LABS: Basophils % 0.1 %; Hematocrit 32.2 % (37.0-47.0); Hemoglobin 10.3 g/dL (11.5-15.3); Lymphocytes # 0.9 10^3/uL (0.8-4.8); Lymphocytes % 7.8 %; Mean Corpuscular Hemoglobin 28.3 pg (28.0-34.0); Mean Corpuscular Volume 88.5 fl (81-99); Monocytes # 0.5 10^3/uL (0.2-0.9); Monocytes % 4.2 %; Neutrophils # 9.76 10^3/uL (1.8-7.7); Neutrophils % 87.4 %; Nucleated Red Blood Cells % 0 %; Platelet Count 323 10^3/cmm (130-400); Red Blood Count 3.64 10^6/uL (4.1-5.3); Red Cell Distribution Width 13.3 % (12.1-15.1); White Blood Count 11.2 10^3/uL (4.0-10.0)
[2023-03-28 04:02] LABS: Lactate (Lactic Acid level) 3.7 mmol/L (0.5-2.2)
[2023-03-28 04:10] LABS: Anion Gap 18.9 (5-19); Blood Urea Nitrogen 17 mg/dL (8-23); C Reactive Protein 22.7 mg/L (0.0-4.9); Calcium 7.9 mg/dL (8.5-10.5); Carbon Dioxide 20 mmol/L (22-29); Chloride 101 mmol/L (98-107); Glucose 391 mg/dL (65-115); Magnesium 1.5 mg/dL (1.7-2.3); Osmolality Calculated 300 mOsm/kg (285-295); Potassium 3.9 mmol/L (3.5-5.1); Sodium 136 mmol/L (136-145)
--- NOTE | 2023-03-28 06:24 | PC.NURSE ---
Patient's mentation has throughout the shift. The patient had multiple episodes of anxiety and multiple unsafe attempts to get out of bed. Multiple attempts made to reorient patient, but patient did not respond to these attempts. MD notified and medication ordered (see MAR).
--- NOTE | 2023-03-28 06:33 | PC.NURSE ---
Patient's mentation has throughout the shift. The patient had multiple episodes of anxiety and multiple unsafe attempts to get out of bed. Patient was also pulling at lines and marcum. Patient removed PIV in left AC during one of the episodes. Multiple attempts made to reorient patient, but patient did not respond to these attempts. MD notified and medication ordered (see MAR).
[2023-03-28] MEDS: ziprasidone 20 mg/mL SDV 10 MG IM (07:47)
[2023-03-28 08:01] LABS: Glucose Point of Care 458 mg/dL (70-110)
[2023-03-28] MEDS: enoxaparin 60 mg/0.6 mL Syringe SUBCUT ×2 (08:50→20:25)
[2023-03-28] MEDS: insulin lispro 100 unit/1 mL SUBCUT ×4 (08:50→20:25)
[2023-03-28] MEDS: clopidogrel 75 mg Tablet PO (08:50)
[2023-03-28] MEDS: metoprolol tartrate 50 mg Tablet 100 MG PO ×2 (08:50→20:25)
[2023-03-28] MEDS: FUROsemide 10 mg/mL SDV 2mL 20 MG IVP (10:36)
[2023-03-28 10:41] LABS: Glucose Point of Care 389 mg/dL (70-110)
--- NOTE | 2023-03-28 12:05 | PM.PN ---
Subjective Subjective: No fever Leukocytosis improving AMY improving as well Hyperglycemia Lactic acid 3.7 Patient is much more better after getting Geodon Overnight she was experiencing sundowning and delirium No signs of stroke Family at the bedside Troponin without significant delta Patient not complaining of worsening abdominal pain Vitals/I&O/Wt Last Vital Signs Temp 99.4 F 03/28/23 00:15 Pulse 92 03/28/23 10:00 Resp 13 03/28/23 10:00 BP 153/78 03/28/23 10:00 Pulse Ox 96 03/28/23 10:00 O2 Del Method Room Air 03/28/23 08:00 03/27/23 03/28/23 03/28/23 22:59 06:59 14:59 Intake Total 3259.34 / 3261.84 453.75 / 3715.59 Output Total 1275 / 1275 550 / 1825 Balance 1984.34 / 1985.84 -96.25 / 1890.59 Weight last 48 hrs Weight 63.503 kg Physical Exam Narrative: Laying supine Calm and cooperative Currently on room air Abdomen tender to deep palpation Bowel sound present Lower extremity no edema Awake and alert Nonfocal neuro exam Currently on room air S1, S2 GCS 15 Family is at the bedside Urinary Catheter Management: Cisneros: Cath Placed During This Visit: yes Reason for Continuing Indwelling Catheter: Accurate Measurement of Urinary Output in Critically Ill Patients Urinary Catheter Date of Insertion: 03/27/23 Urinary Catheter Time of Insertion: 22:07 Data 03/28/23 02:13 03/28/23 02:13 Micro: Microbiology 03/27/23 16:00 Blood Culture - Preliminary Blood SPECIMEN COLLECTED 03/27/23 15:50 Blood Culture - Preliminary Blood SPECIMEN COLLECTED A&P Assessment and plan (1) AMY (acute kidney injury): (2) Colitis: (3) Sepsis: (4) Diabetes: (5) Abnormal blood sugar: (6) Congestive heart failure: (7) Neuropathic pain: Plan Sepsis related colitis No fever Lactic acid improving Leukocytosis improving Cultures negative We will follow-up with stool culture report Discontinue IV fluids Diastolic CHF exacerbation pulmonary vessel congestion on x-ray We will give her Lasix Discontinue IV fluid AMY: Improving Metabolic acidosis related to lactic acidemia: Improving Neuropathic pain patient takes hydrocodone at home which I will resume for now My concern was initially related to mesenteric ischemia I do not see any signs of A-fib she has been treated empirically with therapeutic Lovenox for now for my concern of A-fib related mesenteric acute angina I might change to DVT prophylactic regimen by tomorrow History of coronary disease, continue Plavix with Lovenox for now we will add aspirin once I discontinue Lovenox Continue ciprofloxacin and Flagyl discontinue IV fluids, monitor in ICU for next few hours once we are able to titrate off nitroglycerin drip she can transfer to [facility] or [facility] She is getting nitroglycerin for hypertensive urgency DNR/DNI Clear liquid diet for now Attestations Medical Necessity Statement*: Transfer out of ICU later today Diagnoses AMY (acute kidney injury) N17.9 Colitis K52.9 Sepsis A41.9 Diabetes E11.9 Abnormal blood sugar R73.09 Congestive heart failure I50.9 Neuropathic pain M79.2
[2023-03-28] MEDS: nitroglycerin 1 gm/inch oint Pkt 0.5 INCH TOPICAL (16:33)
[2023-03-28 17:34] LABS: Glucose Point of Care 195 mg/dL (70-110)
[2023-03-28] MEDS: magnesium oxide 400 mg tablet PO (17:51)
[2023-03-28] MEDS: hyDRALAzine 20 mg/mL INJ 1 mL 10 MG IVP (17:52)
[2023-03-28] MEDS: HYDROcodone-acetaminophen 5-325 mg Tablet 1 TAB PO (17:58)
[2023-03-28 20:10] LABS: Glucose Point of Care 270 mg/dL (70-110)
[2023-03-28] MEDS: insulin glargine 100 units/1 mL 10 UNIT SUBCUT (20:24)
[2023-03-28] MEDS: quetiapine 25 mg Tablet PO (20:28)
[2023-03-28] MEDS: promethazine 25 mg/mL SDV 1 mL IM (22:16)
[2023-03-29] VITALS (28 sets, daily range): BP systolic 100–182; BP diastolic 51–116; PULSE 65–107; RESP 10–28; TEMP 37–37.1; O2SAT 94–99
[2023-03-29] MEDS: metroNIDAZOLE IV 500 MG/100 ML PREMIX 100 MG IV ×3 (01:10→16:02)
[2023-03-29] MEDS: ciprofloxacin 400 MG/200 ML PREMIX 200 MG IV ×3 (03:00→17:36)
[2023-03-29 03:26] LABS: Basophils % 0.2 %; Hematocrit 30.7 % (37.0-47.0); Hemoglobin 10.1 g/dL (11.5-15.3); Lymphocytes # 2.4 10^3/uL (0.8-4.8); Mean Corpuscular HGB Conc 32.9 g/dL (30.0-36.0); Mean Corpuscular Hemoglobin 28.9 pg (28.0-34.0); Mean Platelet Volume 10.5 fL (7.4-10.4); Monocytes # 0.6 10^3/uL (0.2-0.9); Monocytes % 4.9 %; Neutrophils # 9.95 10^3/uL (1.8-7.7); Neutrophils % 76.4 %; Nucleated Red Blood Cells % 0 %; Platelet Count 297 10^3/cmm (130-400); Red Blood Count 3.49 10^6/uL (4.1-5.3); Red Cell Distribution Width 13.8 % (12.1-15.1)
[2023-03-29 03:49] LABS: Anion Gap 15.1 (5-19); Blood Urea Nitrogen 20 mg/dL (8-23); Carbon Dioxide 25 mmol/L (22-29); Chloride 100 mmol/L (98-107); Glucose 203 mg/dL (65-115); Osmolality Calculated 292 mOsm/kg (285-295); Potassium 3.1 mmol/L (3.5-5.1); Sodium 137 mmol/L (136-145)
[2023-03-29 03:50] LABS: Creatinine Clr Calc Pharmacy 38.0946
[2023-03-29] MEDS: ondansetron 2 mg/ML SDV 2 mL 4 MG IVP ×3 (04:45→22:59)
[2023-03-29] MEDS: morphine 4 mg/mL SDV 1 mL IVP ×4 (06:15→22:59)
[2023-03-29 07:38] LABS: Glucose Point of Care 318 mg/dL (70-110)
[2023-03-29] MEDS: metoprolol tartrate 50 mg Tablet 100 MG PO ×2 (08:01→21:48)
[2023-03-29] MEDS: enoxaparin 60 mg/0.6 mL Syringe SUBCUT (08:01)
[2023-03-29] MEDS: clopidogrel 75 mg Tablet PO (08:01)
[2023-03-29] MEDS: pantoprazole 40 mg SDV IVP ×2 (08:02→17:35)
[2023-03-29] MEDS: insulin lispro 100 unit/1 mL SUBCUT ×3 (08:02→17:36)
[2023-03-29] MEDS: lisinopril 10 mg Tablet PO ×2 (08:57→08:59)
[2023-03-29 11:57] LABS: Glucose Point of Care 303 mg/dL (70-110)
--- NOTE | 2023-03-29 12:58 | P.PN_ITS ---
Subjective Subjective: Patient is eating breakfast Hyperglycemia noted Patient endorsing feeling better No active bowel movement so far No emesis I have asked nurse to remove her Cisneros catheter and change her sliding scale to medium dose change Lantus to 15 Vitals/I&O/Wt Last Vital Signs Temp 98.7 F 03/29/23 07:00 Pulse 65 03/29/23 11:00 Resp 14 03/29/23 11:00 BP 121/57 03/29/23 11:00 Pulse Ox 98 03/29/23 11:00 O2 Del Method Room Air 03/29/23 11:00 03/28/23 03/29/23 03/29/23 22:59 06:59 14:59 Intake Total 909.75 / 1299.75 300 / 1599.75 300 / 300 Output Total 2350 / 2350 700 / 3050 Balance -1440.25 / -1050.25 -400 / -1450.25 300 / 300 Weight last 48 hrs Weight 63.503 kg Physical Exam Narrative: Patient is endorsing feeling better Eating breakfast Abdomen slightly tender on deep palpation Bowel sound present Awake and alert Family at the bedside Nonfocal neuro exam Currently on room air GCS 15 Hemodynamically stable Cisneros catheter in place Urinary Catheter Management: Cisneros: Cath Placed During This Visit: yes Reason for Continuing Indwelling Catheter: Accurate Measurement of Urinary Output in Critically Ill Patients Urinary Catheter Date of Insertion: 03/27/23 Urinary Catheter Time of Insertion: 22:07 Data 03/29/23 02:26 03/29/23 02:26 Micro: Microbiology 03/27/23 16:00 Blood Culture - Preliminary Blood NEGATIVE TO DATE 03/27/23 15:50 Blood Culture - Preliminary Blood NEGATIVE TO DATE A&P Assessment and plan (1) Colitis: (2) Hypertension: (3) Neuropathic pain: (4) AMY (acute kidney injury): (5) Colitis: (6) Sepsis: (7) Abnormal blood sugar: (8) Congestive heart failure: Plan Sepsis related to colitis Improving Afebrile Cultures negative I will discontinue therapeutic Lovenox my concern for mesenteric ischemia is low at this point Patient has remained in sinus rhythm AMY Related to sepsis: Resolved Hypertension: Added lisinopril along amlodipine Hyperglycemia increase Lantus dose to 15 units along moderate sliding scale, discontinue low intensity sliding scale Patient has history of coronary disease I will resume aspirin and Plavix no active chest pain or shortness of breath Continue IV antibiotics and change to p.o. once leukocytosis improved Neuropathic pain continue hydrocodone Metabolic acidosis resolved Diastolic CHF: Resolved DNR/DNI Transfer out of ICU If feeling better by tomorrow might be able to go home this weekend Attestations Medical Necessity Statement*: Could be discharged home over this weekend Coding Level of Care Code 26271 Moderate MDM includes number and complexity of problems actively addressed during encounter, amount and/or complexity of data reviewed/ordered and described risk of complication, morbidity or mortality of management as documen gucci Diagnoses Colitis K52.9 Hypertension I10 Neuropathic pain M79.2 AMY (acute kidney injury) N17.9 Sepsis A41.9 Abnormal blood sugar R73.09 Congestive heart failure I50.9
[2023-03-29] MEDS: enoxaparin 40 mg/0.4 mL Syringe SUBCUT (14:23)
[2023-03-29] MEDS: metoclopramide 5 mg/mL SDV 2 mL IVP (15:59)
[2023-03-29 17:28] LABS: Glucose Point of Care 314 mg/dL (70-110)
--- NOTE | 2023-03-29 18:13 | PC.NURSE ---
Report called to Radha on second floor, Patient is assigned to room 262.
[2023-03-29 20:52] LABS: Glucose Point of Care 255 mg/dL (70-110)
[2023-03-29] MEDS: insulin glargine 100 units/1 mL 15 UNIT SUBCUT (22:56)
[2023-03-30] VITALS (14 sets, daily range): BP systolic 91–155; BP diastolic 46–72; PULSE 61–92; RESP 16–18; TEMP 36.8–37.5; O2SAT 94–97
[2023-03-30] MEDS: ciprofloxacin 400 MG/200 ML PREMIX 200 MG IV ×3 (02:25→20:25)
[2023-03-30] MEDS: metroNIDAZOLE IV 500 MG/100 ML PREMIX 100 MG IV ×3 (02:25→18:23)
[2023-03-30] MEDS: HYDROcodone-acetaminophen 5-325 mg Tablet 1 TAB PO (05:19)
[2023-03-30 06:05] LABS: Basophils % 0.3 %; Eosinophils % 0.3 %; Hematocrit 31.1 % (37.0-47.0); Lymphocytes # 2.7 10^3/uL (0.8-4.8); Lymphocytes % 30.7 %; Mean Corpuscular HGB Conc 32.2 g/dL (30.0-36.0); Mean Corpuscular Hemoglobin 28.7 pg (28.0-34.0); Mean Corpuscular Volume 89.1 fl (81-99); Mean Platelet Volume 10.2 fL (7.4-10.4); Monocytes # 0.7 10^3/uL (0.2-0.9); Monocytes % 7.9 %; Neutrophils # 5.28 10^3/uL (1.8-7.7); Neutrophils % 60.5 %; Nucleated Red Blood Cells % 0 %; Platelet Count 247 10^3/cmm (130-400); Red Blood Count 3.49 10^6/uL (4.1-5.3); Red Cell Distribution Width 13.7 % (12.1-15.1); White Blood Count 8.8 10^3/uL (4.0-10.0)
[2023-03-30 06:27] LABS: Anion Gap 14.2 (5-19); Blood Urea Nitrogen 21 mg/dL (8-23); Calcium 8.2 mg/dL (8.5-10.5); Carbon Dioxide 27 mmol/L (22-29); Chloride 97 mmol/L (98-107); Glucose 280 mg/dL (65-115); Osmolality Calculated 293 mOsm/kg (285-295); Potassium 3.2 mmol/L (3.5-5.1); Sodium 135 mmol/L (136-145)
[2023-03-30 06:49] LABS: Glucose Point of Care 295 mg/dL (70-110)
[2023-03-30] MEDS: lisinopril 10 mg Tablet PO (09:22)
[2023-03-30] MEDS: aspirin 81 mg EC Tablet PO (09:22)
[2023-03-30] MEDS: metoprolol tartrate 50 mg Tablet 100 MG PO ×2 (09:22→20:24)
[2023-03-30] MEDS: clopidogrel 75 mg Tablet PO (09:22)
[2023-03-30] MEDS: insulin lispro 100 unit/1 mL SUBCUT ×2 (09:23→12:43)
[2023-03-30] MEDS: pantoprazole 40 mg SDV IVP ×2 (10:38→20:24)
--- NOTE | 2023-03-30 11:04 | PC.SOCIAL ---
Pg 2 IMM Explained to pt Pg 2 IMM. No questions voiced. Provided pt a copy. Initialed, dated, & timed a copy & placed in chart.
[2023-03-30 11:26] LABS: Glucose Point of Care 245 mg/dL (70-110)
[2023-03-30] MEDS: ondansetron 2 mg/ML SDV 2 mL 4 MG IVP (14:26)
[2023-03-30] MEDS: enoxaparin 40 mg/0.4 mL Syringe SUBCUT (15:19)
[2023-03-30] MEDS: morphine 4 mg/mL SDV 1 mL IVP ×2 (16:00→23:38)
[2023-03-30 17:12] LABS: Glucose Point of Care 122 mg/dL (70-110)
[2023-03-30] MEDS: insulin glargine 100 units/1 mL 15 UNIT SUBCUT (20:24)
--- NOTE | 2023-03-30 20:33 | PM.PN ---
Subjective Subjective: Patient reports she feels much worse today due to worsening abdominal pain. Reports oral intake has decreased after showing improvement on Saturday. She does not feel comfortable trying any solid foods. Reports significant nausea. Denies fevers or chills. Denies vomiting. Vitals/I&O/Wt Last Vital Signs Temp 99.5 F 03/30/23 16:00 Pulse 73 03/30/23 19:12 Resp 18 03/30/23 19:12 BP 118/64 03/30/23 16:00 Pulse Ox 97 03/30/23 19:12 O2 Del Method Room Air 03/30/23 19:12 03/30/23 03/30/23 03/30/23 06:59 14:59 22:59 Intake Total 300 / 1020 1140 / 1140 460 / 1600 Balance 300 / 620 1140 / 1140 460 / 1600 Physical Exam Narrative: GENERAL: The patient is awake.? Alert.? Ill appearing but very pleasant. HEENT: Normocephalic, atraumatic. Extraocular muscles intact. NECK: No JVD. CARDIOVASCULAR: Normal S1 and S2.? No murmurs, rubs, or gallops. No peripheral edema. RESPIRATORY: Clear to auscultation bilaterally. No wheezing. No rales. No rhonchi. ABDOMEN: Normal to possibly slightly distended in appearance. TTP in all 4 quadrants. Bowel sounds are present. No guarding. EXTREMITIES: No cyanosis.? No clubbing.? SKIN: No skin rash.? No jaundice. CENTRAL NERVOUS SYSTEM:? Moves all 4 extremities. No myoclonus. Urinary Catheter Management: Cisneros: Cath Placed During This Visit: yes Reason for Continuing Indwelling Catheter: Accurate Measurement of Urinary Output in Critically Ill Patients Urinary Catheter Date of Insertion: 03/27/23 Urinary Catheter Time of Insertion: 22:07 Data 03/30/23 05:40 03/30/23 05:40 A&P Assessment and plan (1) Colitis: (2) Hypertension: (3) Neuropathic pain: (4) AMY (acute kidney injury): (5) Sepsis: (6) Abnormal blood sugar: (7) Congestive heart failure: Plan Sepsis 2/2 colitis -PO intake and abd pain worsened unfortunately -Continue IV abx -Continue liquid diet, advance as tolerated -Stool studies pending Hypertension -Continue lisinopril -Continue Norvasc Hyperglycemia -Continue Lantus -SSI CAD -DAPT Chronic pain -Continue home pain meds Metabolic acidosis, resolved AMY, resolved Diastolic CHF: Resolved Code: DNR Attestations Medical Necessity Statement*: Patient not tolerating adequate oral intake due to colitis and sepsis symptoms requiring ongoing hospitalization for IV abx and supportive care. Coding Level of Care Code Acute Code for Chg Fwd Diagnoses Colitis K52.9 Hypertension I10 Neuropathic pain M79.2 AMY (acute kidney injury) N17.9 Sepsis A41.9 Abnormal blood sugar R73.09 Congestive heart failure I50.9
[2023-03-30] MEDS: morphine IR 15 mg Tablet PO (20:35)
[2023-03-30 21:14] LABS: Glucose Point of Care 203 mg/dL (70-110)
[2023-03-31] MEDS: metroNIDAZOLE IV 500 MG/100 ML PREMIX 100 MG IV ×2 (01:39→09:25)
[2023-03-31] MEDS: ciprofloxacin 400 MG/200 ML PREMIX 200 MG IV ×2 (02:50→11:34)
[2023-03-31 03:19] VITALS: BP 123/68; PULSE 71; RESP 17; TEMP 36.8; O2SAT 96
[2023-03-31 04:09] VITALS: RESP 17
[2023-03-31] MEDS: morphine 4 mg/mL SDV 1 mL IVP (04:09)
[2023-03-31 05:32] LABS: Basophils % 0.6 %; Eosinophils # 0.1 10^3/uL (0.0-0.8); Eosinophils % 1.6 %; Hematocrit 31.1 % (37.0-47.0); Hemoglobin 9.7 g/dL (11.5-15.3); Lymphocytes % 27.7 %; Mean Corpuscular HGB Conc 31.2 g/dL (30.0-36.0); Mean Corpuscular Volume 89.6 fl (81-99); Mean Platelet Volume 10.4 fL (7.4-10.4); Monocytes # 0.6 10^3/uL (0.2-0.9); Monocytes % 7.8 %; Neutrophils # 4.39 10^3/uL (1.8-7.7); Nucleated Red Blood Cells % 0 %; Platelet Count 225 10^3/cmm (130-400); Red Blood Count 3.47 10^6/uL (4.1-5.3); Red Cell Distribution Width 13.6 % (12.1-15.1); White Blood Count 7.1 10^3/uL (4.0-10.0)
[2023-03-31 05:54] LABS: Albumin Level 3.2 g/dL (3.5-5.2); Blood Urea Nitrogen 19 mg/dL (8-23); Calcium 8.1 mg/dL (8.5-10.5); Carbon Dioxide 29 mmol/L (22-29); Chloride 102 mmol/L (98-107); Glucose 178 mg/dL (65-115); Magnesium 1.8 mg/dL (1.7-2.3); Phosphorus 3.3 mg/dL (2.5-4.5); Sodium 139 mmol/L (136-145)
[2023-03-31 06:53] LABS: Glucose Point of Care 208 mg/dL (70-110)
[2023-03-31 07:32] VITALS: BP 147/72; PULSE 77; RESP 15; TEMP 36.7; O2SAT 97
[2023-03-31 08:00] VITALS: PULSE 75; RESP 16; O2SAT 96
[2023-03-31] MEDS: HYDROcodone-acetaminophen 5-325 mg Tablet 1 TAB PO (08:24)
[2023-03-31] MEDS: metoprolol tartrate 50 mg Tablet 100 MG PO (08:24)
[2023-03-31] MEDS: aspirin 81 mg EC Tablet PO (08:25)
[2023-03-31] MEDS: pantoprazole 40 mg SDV IVP (08:25)
[2023-03-31] MEDS: clopidogrel 75 mg Tablet PO (08:25)
[2023-03-31] MEDS: lisinopril 10 mg Tablet PO (08:25)
[2023-03-31] MEDS: insulin lispro 100 unit/1 mL SUBCUT ×2 (08:26→11:39)
[2023-03-31] MEDS: amlodipine 10 mg Tablet PO (09:24)
[2023-03-31 11:40] LABS: Glucose Point of Care 207 mg/dL (70-110)
[2023-03-31 12:00] VITALS: BP 113/66; PULSE 65; RESP 17; TEMP 36.8; O2SAT 98
--- NOTE | 2023-03-31 12:18 | P.DS_ITS ---
Discharge Providers Date of Admission: 03/27/23 18:03 Date of Discharge: March 31, 2023 Attending Provider at Admission: Abbey Jacinto MD Attending Provider at Discharge: Abbey Jacinto MD Primary Care Provider: Jane Strickland MD Diagnoses at Discharge Discharge Diagnosis (1) Colitis: Status: Acute (2) Hypertension: Status: Acute (3) Neuropathic pain: Status: Acute (4) AMY (acute kidney injury): Status: Acute (5) Sepsis: Status: Acute (6) Abnormal blood sugar: Status: Acute (7) Congestive heart failure: Status: Acute Reason for Visit Reason for Visit: vomitting x2 days Hospital Course Hospital Course 77-year-old female who was admitted to the hospital for sepsis related to colitis, she remained afebrile without worsening leukocytosis, kidney function improved with IV fluid hydration, mentation improved as well, patient remained hyperglycemic without any signs of DKA, she had recent hospitalization for GI related symptoms when I asked her to touch base with her PCP to see a haritha roenterologist outpatient, on previous visit CT abdomen pelvis did not show any sign mesenteric ischemia, her rhythm has been sinus I do not see any signs of A- fib to consider acute mesenteric anginal symptoms I initially gave her therapeutic Lovenox which I transition to DVT prophylactic regimen I have not found any evidence of irregular heart rhythm so far no signs of bradycardia she does have left bundle branch block. She will continue her dual antiplatelet therapy for history of coronary disease she will take her insulin for type 2 diabetes, creatinine has been around baseline, however I will discontinue ramipril and add amlodipine, hydralazine for her hypertension, patient remained hypertensive initially and required IV nitroglycerin drip which we were able to transition to p.o. regimen within 24 hours, no active signs of stroke chest pain or shortness of breath at the time of discharge. She is tolerating diet Physical Exam Narrative: Tolerating diet Abdomen soft Bowel sound present Doing well on room air GCS 15 Euvolemic No active distress is at the bedside S1, S2 Urinary Catheter Management: Cisneros: Cath Placed During This Visit: yes Reason for Continuing Indwelling Catheter: Accurate Measurement of Urinary Output in Critically Ill Patients Urinary Catheter Date of Insertion: 03/27/23 Urinary Catheter Time of Insertion: 22:07 Discharge Data Studies Completed and Pending Completed Studies During Hospitalization Category Date Time Status CT abdomen pelvis wo con [id number] Stat Cat Scan 03/27/23 16:[address] head wo con* [id number] Stat Cat Scan 03/27/23 14:32 Completed XR chest 1V portable [id number] Stat Exams 03/27/23 12:53 Completed XR chest 1V portable [id number] Stat Exams 03/27/23 18:18 Completed Pending at discharge Category Date Time Status Blood Culture Stat Lab 03/27/23 16:00 Results CDIFF [Clostridioides Difficile PCR] Routine Lab 03/27/23 19:41 Uncollected Stool Culture, Bacterial [Enteric Bacterial Panel by Lab 03/27/23 19:41 Uncollected PCR] Routine stool Ova and Parasite [Enteric Parasite Panel by PCR] Lab 03/27/23 19:41 Uncollected Routine Radiology Impressions Head CT 03/27/23 14:32 IMPRESSION: 1. No evidence of intracranial hemorrhage or mass effect. 2. Mild small vessel changes. Moderate parenchymal volume loss. 3. Intracranial vascular calcification. 4. No acute intracranial findings. Abdomen/Pelvis CT 03/27/23 16:14 IMPRESSION: 1. Diffuse mural thickening of the colon with minimal stranding of the pericolonic fat. Findings are suggestive of nonspecific colitis. 2. No acute abnormality of the solid organs demonstrated. Chest X-Ray 03/27/23 18:18 IMPRESSION: 1. New right jugular central line with tip overlying right atrium. No pneumothorax. 2. Mild cardiomegaly is noted. 3. Mild pulmonary venous congestion. No consolidative pulmonary infiltrate noted. Laboratory Results WBC 7.1 10^3/uL (4.0-10.0) 03/31/23 05:00 RBC 3.47 10^6/uL (4.1-5.3) L 03/31/23 05:00 Hgb 9.7 g/dL (11.5-15.3) L 03/31/23 05:00 Hct 31.1 % (37.0-47.0) L 03/31/23 05:00 MCV 89.6 fl (81-99) 03/31/23 05:00 MCH 28.0 pg (28.0-34.0) 03/31/23 05:00 MCHC 31.2 g/dL (30.0-36.0) 03/31/23 05:00 RDW 13.6 % (12.1-15.1) 03/31/23 05:00 Plt Count 225 10^3/cmm (130-400) 03/31/23 05:00 MPV 10.4 fL (7.4-10.4) 03/31/23 05:00 Neut % (Auto) 62.0 % 03/31/23 05:00 Lymph % (Auto) 27.7 % 03/31/23 05:00 [place] % (Auto) 7.8 % 03/31/23 05:00 Eos % (Auto) 1.6 % 03/31/23 05:00 Baso % (Auto) 0.6 % 03/31/23 05:00 Neut # (Auto) 4.39 10^3/uL (1.8-7.7) 03/31/23 05:00 Lymph # (Auto) 2.0 10^3/uL (0.8-4.8) 03/31/23 05:00 [place] # (Auto) 0.6 10^3/uL (0.2-0.9) 03/31/23 05:00 Eos # (Auto) 0.1 10^3/uL (0.0-0.8) 03/31/23 05:00 Baso # (Auto) 0.0 10^3/uL (0.0-0.1) 03/31/23 05:00 Nucleated RBC % (auto) 0 % 03/31/23 05:00 Nucleated RBCs # 0.0 /100WBC 03/31/23 05:00 Sodium 139 mmol/L (136-145) 03/31/23 05:00 Potassium 3.0 mmol/L (3.5-5.1) L 03/31/23 05:00 Chloride 102 mmol/L (98-107) 03/31/23 05:00 Carbon Dioxide 29 mmol/L (22-29) 03/31/23 05:00 Anion Gap 11.0 (5-19) 03/31/23 05:00 BUN 19 mg/dL (8-23) 03/31/23 05:00 Creatinine 1.5 mg/dL (0.5-0.9) H 03/31/23 05:00 GFR Calculation Not Reportable 03/31/23 05:00 Glucose 178 mg/dL (65-115) H 03/31/23 05:00 POC Glucose 207 mg/dL (70-110) H 03/31/23 11:36 Calculated Osmolality 293 mOsm/kg (285-295) 03/30/23 05:40 Lactic Acid 6.2 mmol/L (0.5-2.2) H* 03/27/23 16:00 Lactic Acid (Sepsis) 3.7 mmol/L (0.5-2.2) H 03/27/23 18:54 Lactate 1.0 mmol/L (0.5-2.2) 03/30/23 05:40 Calcium 8.1 mg/dL (8.5-10.5) L 03/31/23 05:00 Phosphorus 3.3 mg/dL (2.5-4.5) 03/31/23 05:00 Magnesium 1.8 mg/dL (1.7-2.3) 03/31/23 05:00 Total Bilirubin 0.8 mg/dL (0.15-1.2) 03/27/23 13:20 AST 13 U/L (0-32) 03/27/23 13:20 ALT 10 U/L (0-33) 03/27/23 13:20 Alkaline Phosphatase 133 U/L (35-105) H 03/27/23 13:20 Troponin T Baseline 11 ng/L (0-10) H 03/27/23 13:20 Troponin T 120 Minute 12.18 ng/L (0-10) H 03/27/23 15:50 Delta Troponin T 1.18 ABS# (0-10) 03/27/23 15:50 Troponin T Hi Sens 6Hr 18.27 ng/L (0-10) H 03/27/23 19:22 Troponin T Hi Sens 6Hr Delta 7.27 ng/L (0-12) 03/27/23 19:22 C-Reactive Protein 22.7 mg/L (0.0-4.9) H 03/28/23 02:13 Total Protein 7.7 g/dL (6.6-8.7) 03/27/23 13:20 Albumin 3.2 g/dL (3.5-5.2) L 03/31/23 05:00 Globulin 3.3 g/dL (1.3-4.6) 03/27/23 13:20 Lipase 12 U/L (13-60) L 03/27/23 13:20 Urine Color Light yellow (Yellow) 03/27/23 16:22 Urine Appearance Clear (CLEAR) 03/27/23 16:22 Urine pH 7 (5-7) 03/27/23 16:22 Ur Specific [place] 1.010 (1.005-1.030) 03/27/23 16:22 Urine Protein Trace (Negative) 03/27/23 16:22 Urine Glucose (UA) 4+ (Normal) H 03/27/23 16:22 Urine Ketones 1+ (Negative) H 03/27/23 16:22 Urine Blood Neg (Negative) 03/27/23 16:22 Urine Nitrate Negative (Negative) 03/27/23 16:22 Urine Bilirubin Neg (Negative) 03/27/23 16:22 Urine Urobilinogen Norm mg/dL (Negative) 03/27/23 16:22 Ur Leukocyte Esterase Negative (Negative) 03/27/23 16:22 Urine RBC 5-10 /hpf (0-2) H 03/27/23 16:22 Urine WBC 0-4 /hpf (0-5) H 03/27/23 16:22 Ur Squamous Epith Cells None /hpf (0-5) 03/27/23 16:22 Amorphous Sediment Not Reportable 03/27/23 16:22 Urine Bacteria None /hpf (NONE) 03/27/23 16:22 Serum Ketones Negative (Negative) 03/27/23 13:20 Vitals Last Vital Signs Temp 98.1 F 03/31/23 07:32 Pulse 75 03/31/23 08:00 Resp 16 03/31/23 08:00 BP 147/72 03/31/23 07:32 Pulse Ox 96 03/31/23 08:00 O2 Del Method Room Air 03/31/23 08:00 Discharge Plan Discharge Patient Disposition: Home Condition: Stable Prescriptions: New ciprofloxacin HCl 500 mg tablet 500 mg PO Q8H Qty: 10 0RF metronidazole 500 mg tablet 250 mg PO Q12H 10 Days Qty: 10 0RF metronidazole 500 mg tablet 500 mg PO Q8H 5 Days Qty: 15 0RF amlodipine 10 mg tablet 10 mg PO DAILY Qty: 60 0RF hydralazine 25 mg tablet 25 mg PO TID Qty: 90 0RF Continued Novolog FlexPen U-100 Insulin 100 unit/mL (3 mL) insulin pen 5 unit SUBCUT TID 30 Days Qty: 4.5 3RF (DME) Dexcom G7 [employer] Misc See Rx Instructions .Route Qty: 1 0RF Rx Instructions: As directed (DME) Dexcom G7 Sensor Device See Rx Instructions .Route Qty: 1 0RF Rx Instructions: As directed sumatriptan succinate 100 mg tablet See Rx Instructions PO .COMPLEX Qty: 14 0RF Rx Instructions: take 1 tab at onset of headache; if no relief, may repeat 1 tab after at least 2 hrs; max = 2 tabs/24 hrs PO (DME) blood-glucose meter Kit See Rx Instructions .ROUTE .MEDSUPPLY Qty: 1 0RF Rx Instructions: TEST 4 TIMES PER DAY (DME) Accu-Chek [place] Plus test strp Strip See Rx Instructions .ROUTE .MEDSUPPLY Qty: 100 4RF Rx Instructions: TEST QID (DME) pen needle, diabetic [1st Tier Unifine Pentips] 29 gauge x 1/2 needle See Rx Instructions .Route Qty: 100 4RF Rx Instructions: As directed (DME) Accu-Chek [place] Plus test strp Strip See Rx Instructions .Route Qty: 100 4RF Rx Instructions: As directed; QID rosuvastatin 40 mg tablet 40 mg PO BEDTIME Qty: 30 2RF omeprazole 20 mg capsule,delayed release(DR/EC) See Rx Instructions .ROUTE .COMPLEX Qty: 60 2RF Dose Instruction: take 1 capsule BY MOUTH TWICE DAILY Rx Instructions: take 1 capsule BY MOUTH TWICE DAILY clopidogrel 75 mg tablet See Rx Instructions .ROUTE .COMPLEX Qty: 30 3RF Dose Instruction: TAKE 1 TABLET BY MOUTH DAILY Rx Instructions: TAKE 1 TABLET BY MOUTH DAILY (DME) pen needle, diabetic [TechLITE Pen Needle] 32 gauge x 5/32 needle See Rx Instructions .ROUTE .COMPLEX Qty: 100 3RF Dose Instruction: USE DIRECTED with insulin Rx Instructions: USE QID with insulin ondansetron HCl 8 mg tablet See Rx Instructions .ROUTE .COMPLEX Qty: 30 3RF Dose Instruction: TAKE 1 TABLET BY MOUTH EVERY 8 HOURS as needed for FOR NAUSEA AND VOMITING Rx Instructions: TAKE 1 TABLET BY MOUTH EVERY 8 HOURS as needed for FOR NAUSEA AND VOMITING Levemir FlexPen 100 unit/mL (3 mL) insulin pen See Rx Instructions .ROUTE .COMPLEX Qty: 40 2RF Dose Instruction: inject 80 units SUBCUTANEOUSLY TWICE DAILY Rx Instructions: inject 80 units SUBCUTANEOUSLY TWICE DAILY hydrocodone-acetaminophen 5-325 mg tablet 1 tab PO Q8H PRN (Reason: pain) 30 Days Qty: 90 0RF Rx Instructions: Take one tablet every 8 hours as needed for pain. promethazine-DM 6.25-15 mg/5 mL syrup 5 ml PO Q6H PRN (Reason: cough) Qty: 160 0RF multivitamin Tablet 1 tab PO QAM nitroglycerin 0.4 mg tablet, sublingual 0.4 mg sublingual Q5M PRN (Reason: chest pain) Qty: 30 0RF Rx Instructions: do not exceed 3 doses per episode aspirin [Adult Low Dose Aspirin] 81 mg tablet,delayed release (DR/EC) 81 mg PO BEDTIME 30 Days Qty: 30 3RF metoprolol tartrate 100 mg tablet 100 mg PO Q12H Qty: 60 0RF Held ramipril 5 mg capsule 5 mg PO BEDTIME Hold Instructions: Resume on 04/15/23. Discharge Orders: Discharge Order (Routine); Ordered 03/31/23 Ordered By: Abbey Jacinto Referrals: Jane Strickland MD [Primary Care Provider] - Gold Alan MD [Referring] - 2 weeks (Recurrent nausea vomiting) Patient Instructions: Opioid Safety Discharge Attestations Time Spent in Discharge Care*: greater than 30 min Quality Metrics Clinical Quality Measures [ No reported AMI, CVA or VTE this stay] Coding Level of Care Code Acute Code for Chg Fwd Diagnoses Colitis K52.9 Hypertension I10 Neuropathic pain M79.2 AMY (acute kidney injury) N17.9 Sepsis A41.9 Abnormal blood sugar R73.09 Congestive heart failure I50.9
[2023-03-31 16:00] VITALS: BP 113/66; PULSE 65; RESP 17; TEMP 36.8; O2SAT 98
== END 2023-03-31 16:01 | disposition home or self-care (01) | DRG 871 ==
LOC: ER 15:29 → ICU 18:03 → MEDSURG 03-29 18:32
PROVIDERS: Internal Medicine; Admitting Provider Internal Medicine; Emergency Provider Family Medicine; PCP Family Medicine; Visit Provider Internal Medicine
DX: A41.9 Sepsis, unspecified organism (principal); I50.33 Acute on chronic diastolic (congestive) heart failure; I13.0 Hypertensive heart and chronic kidney disease with heart failure and stage 1 through stage 4 chronic kidney disease, or unspecified chronic kidney disease; N17.9 Acute kidney failure, unspecified; I16.1 Hypertensive emergency; E87.20 Acidosis, unspecified; K52.9 Noninfective gastroenteritis and colitis, unspecified; F41.9 Anxiety disorder, unspecified; F32.A Depression, unspecified; I25.10 Atherosclerotic heart disease of native coronary artery without angina pectoris; E11.22 Type 2 diabetes mellitus with diabetic chronic kidney disease; E11.65 Type 2 diabetes mellitus with hyperglycemia; N18.9 Chronic kidney disease, unspecified; Z79.4 Long term (current) use of insulin; E11.40 Type 2 diabetes mellitus with diabetic neuropathy, unspecified; E78.5 Hyperlipidemia, unspecified; I25.2 Old myocardial infarction; Z79.02 Long term (current) use of antithrombotics/antiplatelets; Z79.82 Long term (current) use of aspirin; Z79.891 Long term (current) use of opiate analgesic; I48.91 Unspecified atrial fibrillation; Z66 Do not resuscitate; E87.6 Hypokalemia; G89.29 Other chronic pain; I44.7 Left bundle-branch block, unspecified
CPT/HCPCS: 36415; 36416; 36556; 36592; 51702; 70450; 71045; 74176; 80048; 80053; 80069; 81001; 82009; 82962; 83605; 83690; 83735; 84484; 85025; 86140; 87040; 93005; 96365; 96367; 96372; 96375; 96376; 99291; C9113; J0360; J0744; J1650; J1815; J1940; J2060; J2270; J2405; J2550; J2765; J3480; J3486; J3490; J7030; J7040

== ENCOUNTER 2023-04-27 09:02 | Inpatient (IN) | payer MEDICARE, OTHER, SELFPAY ==
[2023-04-27] VITALS (19 sets, daily range): BP systolic 124–153; BP diastolic 47–105; PULSE 91–120; RESP 12–25; TEMP 36.4–36.6; O2SAT 90–97; BMI 25.6
--- NOTE | 2023-04-27 09:09 | W.ED.NAVMDI ---
HPI - Nausea/Vomiting/Diarrhea General: Chief complaint: General Medical Stated complaint: N/V; HYPERGLYCEMIA Time Seen by Provider: 04/27/23 09:03 History of Present Illness: Patient presents to the ER with nausea vomiting high blood sugar and pain all over. Patient usually takes short acting insulin as per sliding scale about 5 units 3 times a day on top of long-acting insulin Levemir 60 units twice daily. MD elicited complaint: nausea and vomiting Onset (ago): day(s) Description of vomiting: watery Associated nausea: Yes Associated symtoms: Reports nausea Review of Systems General: Reports: 10 or more systems reviewed and unremarkable except in HPI and below GI: Reports: nausea PFSH ED PFSH: Medical History Abdominal pain Abnormal blood sugar Acidosis, lactic AMY (acute kidney injury) Anxiety and depression ASHD (arteriosclerotic heart disease) Cataracts, bilateral Chest pain CKD (chronic kidney disease) Colitis Colitis Colitis Congestive heart failure Constipation Continuous severe abdominal pain Dehydration Diabetes Diabetic ketoacidosis Diabetic neuropathy Diabetic peripheral neuropathy DKA (diabetic ketoacidosis) Fibromyalgia Gastroparesis Gram-positive bacteremia History of recurrent UTI (urinary tract infection) Hyperglycemia Hyperlipidemia Hypertension Hypertension Hypokalemia Hypokalemia Hypophosphatemia Insomnia Intractable abdominal pain Intractable vomiting with nausea Left renal stone Left ureteral calculus Leukocytosis Leukocytosis Migraine Nausea and vomiting Nausea, vomiting, and diarrhea Neuropathic pain NSTEMI (non-ST elevated myocardial infarction) Odynophagia Pyelonephritis Pyuria Sepsis Shingles Ureterolithiasis Urolithiasis Yeast vaginitis Surgical History H/O angioplasty H/O carpal tunnel repair H/O: hysterectomy History of cholecystectomy S/P ureteral stent placement Family History Mother , at age 65 Heart attack Father , at age 63 Heart attack Other Diabetes Hypertension Social History Smoking and tobacco status: never smoked Second hand smoke exposure: No Alcohol intake: never Substance/Drug Use: never Adopted: No Caregiver/support person: Yes (spouse) Lives independently: Yes Household members: spouse Marital status: service: No Current occupational status: retired Current gender identity: Female Special vandana needs: No Agree to transfusion: Yes Physical Exam Const: COMMON NORMALS: no acute distress, average body habitus, patient oriented x3, no limitations, healthy appearing, alert and well nourished HENMT: COMMON NORMALS: normocephalic, atraumatic, hearing grossly normal bilaterally, external ears normal, EAC's normal, Normal external nose present and moist oral mucous membranes HEAD & SCALP: normocephalic and atraumatic NOSE: Normal external nose present EXTERNAL EAR: Yes external ears normal EXTERNAL AUDITORY CANAL: EAC's normal Eye: COMMON NORMALS: Equal, round and reactive pupils present, EOMs intact bilaterally, conjunctivae normal and no scleral icterus CONJUNCTIVA: Yes conjunctivae normal PUPIL: Yes Equal, round and reactive pupils present Neck/C-Spine: COMMON NORMALS: full ROM, no lymphadenopathy, supple, no meningeal signs, no JVD and Thyroid normal THYROID: Thyroid normal Chest: COMMONS NORMALS: normal inspection of the chest and normal palpation of entire chest wall Resp: COMMON NORMALS: normal respiratory effort, No retractions, No use of accessory muscles and clear to auscultation bilaterally AUSCULTATION: clear to auscultation bilaterally Cardio: COMMON NORMALS: no JVD, regular rate, regular rhythm, S1 normal heart sound present, S2 normal heart sound present, No gallops present (Cardio), No clicks present (Cardio) and No murmurs present (Cardio) RATE: regular rate RHYTHM: regular rhythm HEART SOUNDS: S1 normal heart sound present and S2 normal heart sound present GI: COMMON NORMALS: Normal to inspection, nondistended, normoactive bowel sounds present, Soft to palpation, non-tender, No hepatosplenomegaly present and no masses PALPATION: Yes Soft to palpation and Yes No hepatosplenomegaly present Neuro: COMMON NORMALS: patient oriented x3 SENSORIUM/ORIENTATION: Yes alert MENINGEAL SIGNS: Yes no meningeal signs Course Vital Signs: Vital signs: Vital Signs Temperature 98 F 04/27/23 13:00 Pulse Rate 108 H 04/27/23 13:00 Respiratory Rate 18 04/27/23 13:00 Blood Pressure 137/68 04/27/23 14:00 Pulse Oximetry 97 04/27/23 13:00 Oxygen Delivery Me thod Nasal Cannula 04/27/23 13:00 Oxygen Flow Rate 2 04/27/23 13:00 MDM - Nausea/Vomiting/Diarrhea Medical Decision Making Patient presents to the ER with high blood sugar and pain all over. As well is nausea and vomiting. Patient was given proximately 20 units of IV regular acting insulin and 2 L of fluid along with 8 of Zofran and 10 of Reglan. Patient's blood sugar only dropped from approximately 5 29-4 69. Ketones are negative anion gap is only slightly elevated but improving. Dr. Byrne was consulted and agreed to accept the patient to the ICU on an insulin drip for further evaluation and treatment. Differential Diagnosis Unlikely traveler's diarrhea, food poisoning, gastroenteritis, clostridium difficile infection, drug-induced nausea and vomiting or dehydration Medical Records I reviewed the patient's medical records. Lab Data I reviewed the patient's lab results. 04/27/23 08:45 04/27/23 12:02 Laboratory Results WBC 13.9 10^3/uL (4.0-10.0) H 04/27/23 08:45 RBC 3.63 10^6/uL (4.1-5.3) L 04/27/23 08:45 Hgb 10.4 g/dL (11.5-15.3) L 04/27/23 08:45 Hct 32.9 % (37.0-47.0) L 04/27/23 08:45 MCV 90.6 fl (81-99) 04/27/23 08:45 MCH 28.7 pg (28.0-34.0) 04/27/23 08:45 MCHC 31.6 g/dL (30.0-36.0) 04/27/23 08:45 RDW 13.2 % (12.1-15.1) 04/27/23 08:45 Plt Count 357 10^3/cmm (130-400) 04/27/23 08:45 MPV 11.0 fL (7.4-10.4) H 04/27/23 08:45 Neut % (Auto) 80.9 % 04/27/23 08:45 Lymph % (Auto) 15.7 % 04/27/23 08:45 [place] % (Auto) 2.2 % 04/27/23 08:45 Eos % (Auto) 0.1 % 04/27/23 08:45 Baso % (Auto) 0.3 % 04/27/23 08:45 Neut # (Auto) 11.25 10^3/uL (1.8-7.7) H 04/27/23 08:45 Lymph # (Auto) 2.2 10^3/uL (0.8-4.8) 04/27/23 08:45 [place] # (Auto) 0.3 10^3/uL (0.2-0.9) 04/27/23 08:45 Eos # (Auto) 0.0 10^3/uL (0.0-0.8) 04/27/23 08:45 Baso # (Auto) 0.0 10^3/uL (0.0-0.1) 04/27/23 08:45 Nucleated RBC % (auto) 0 % 04/27/23 08:45 Nucleated RBCs # 0.0 /100WBC 04/27/23 08:45 Sodium 132 mmol/L (136-145) L 04/27/23 12:02 Potassium 3.7 mmol/L (3.5-5.1) 04/27/23 12:02 Chloride 94 mmol/L (98-107) L 04/27/23 12:02 Carbon Dioxide 20 mmol/L (22-29) L 04/27/23 12:02 Anion Gap 21.7 (5-19) H 04/27/23 12:02 BUN 31 mg/dL (8-23) H 04/27/23 12:02 Creatinine 1.5 mg/dL (0.5-0.9) H 04/27/23 12:02 GFR Calculation Not Reportable 04/27/23 12:02 Glucose 500 mg/dL (65-115) H 04/27/23 12:02 POC Glucose 469 mg/dL (70-110) H 04/27/23 14:25 Calculated Osmolality 303 mOsm/kg (285-295) H 04/27/23 12:02 Calcium 8.4 mg/dL (8.5-10.5) L 04/27/23 12:02 Total Bilirubin 0.5 mg/dL (0.15-1.2) 04/27/23 08:45 AST 14 U/L (0-32) 04/27/23 08:45 ALT 11 U/L (0-33) 04/27/23 08:45 Alkaline Phosphatase 108 U/L (35-105) H 04/27/23 08:45 Troponin T Gen 5 ng/L 21 ng/L (0-10) H 04/27/23 12:02 Total Protein 7.3 g/dL (6.6-8.7) 04/27/23 08:45 Albumin 4.2 g/dL (3.5-5.2) 04/27/23 08:45 Globulin 3.1 g/dL (1.3-4.6) 04/27/23 08:45 Urine Color Yellow (Yellow) 04/27/23 09:21 Urine Appearance Clear (CLEAR) 04/27/23 09:21 Urine pH 5 (5-7) 04/27/23 09:21 Ur Specific [place] 1.015 (1.005-1.030) 04/27/23 09:21 Urine Protein 1+ (Negative) H 04/27/23 09:21 Urine Glucose (UA) 4+ (Normal) H 04/27/23 09:21 Urine Ketones 1+ (Negative) H 04/27/23 09:21 Urine Blood 2+ (Negative) H 04/27/23 09:21 Urine Nitrate Negative (Negative) 04/27/23 09:21 Urine Bilirubin Neg (Negative) 04/27/23 09:21 Urine Urobilinogen Norm mg/dL (Negative) 04/27/23 09:21 Ur Leukocyte Esterase Negative (Negative) 04/27/23 09:21 Urine RBC 0-4 /hpf (0-2) H 04/27/23 09:21 Urine WBC 0-4 /hpf (0-5) H 04/27/23 09:21 Ur Squamous Epith Cells 5-10 /hpf (0-5) H 04/27/23 09:21 Amorphous Sediment Not Reportable 04/27/23 09:21 Urine Bacteria Trace /hpf (NONE) 04/27/23 09:21 Urine Mucus 1+ /hpf 04/27/23 09:21 Serum Ketones Negative (Negative) 04/27/23 08:45 EKG Data EKG 1: I personally reviewed and interpreted this EKG as follows: EKG interpretation date: 04/27/23 EKG interpretation time: 10:05 Prior EKG tracings: not available for review Interpretation: EKG showed ventricular rate 103 bpm, KS interval 167, QRS duration 150, QTc of 478 sinus tachycardia with a left bundle branch block Discharge Plan Discharge Patient Disposition: Admitted As Inpatient Admit Provider: Johan Byrne Clinical Impression: Hyperglycemia due to diabetes mellitus, Nausea and vomiting Condition: Stable Coding Level of Care Code ED Criminal Intelligence Specialist for Melissa King
[2023-04-27] MEDS: sodium chloride 0.9% 1,000 ML 999 ML IV ×2 (09:23→13:16)
[2023-04-27] MEDS: ketorolac 30 mg/mL INJ 15 MG IVP (09:29)
[2023-04-27] MEDS: ondansetron 2 mg/ML SDV 2 mL 8 MG IVP (09:29)
[2023-04-27 09:34] LABS: Basophils % 0.3 %; Eosinophils % 0.1 %; Hematocrit 32.9 % (37.0-47.0); Hemoglobin 10.4 g/dL (11.5-15.3); Lymphocytes # 2.2 10^3/uL (0.8-4.8); Lymphocytes % 15.7 %; Mean Corpuscular HGB Conc 31.6 g/dL (30.0-36.0); Mean Corpuscular Hemoglobin 28.7 pg (28.0-34.0); Mean Corpuscular Volume 90.6 fl (81-99); Monocytes # 0.3 10^3/uL (0.2-0.9); Monocytes % 2.2 %; Neutrophils # 11.25 10^3/uL (1.8-7.7); Neutrophils % 80.9 %; Nucleated Red Blood Cells % 0 %; Platelet Count 357 10^3/cmm (130-400); Red Blood Count 3.63 10^6/uL (4.1-5.3); Red Cell Distribution Width 13.2 % (12.1-15.1); White Blood Count 13.9 10^3/uL (4.0-10.0)
[2023-04-27 09:35] LABS: Ketone (Acetest) Serum Negative (Negative)
[2023-04-27 09:40] LABS: Alanine Aminotransferase 11 U/L (0-33); Albumin Level 4.2 g/dL (3.5-5.2); Alkaline Phosphatase 108 U/L (35-105); Anion Gap 22.9 (5-19); Aspartate Amino Transferase 14 U/L (0-32); Blood Urea Nitrogen 36 mg/dL (8-23); Calcium 9.1 mg/dL (8.5-10.5); Carbon Dioxide 22 mmol/L (22-29); Chloride 93 mmol/L (98-107); Globulin 3.1 g/dL (1.3-4.6); Osmolality Calculated 310 mOsm/kg (285-295); Potassium 3.9 mmol/L (3.5-5.1); Sodium 134 mmol/L (136-145); Total Bilirubin 0.5 mg/dL (0.15-1.2); Total Protein 7.3 g/dL (6.6-8.7)
[2023-04-27 09:44] LABS: Glucose 526 mg/dL (65-115)
[2023-04-27] MEDS: insulin regular-human 100 units/1 mL 10 UNIT IVP ×2 (09:50→13:14)
[2023-04-27 10:00] LABS: Bilirubin Urine Neg (Negative); Blood Urine 2+ (Negative); Glucose Urine UA 4+ (Normal); Ketones Urine 1+ (Negative); Nitrate Urine Negative (Negative); Protein Urine 1+ (Negative); Specific Gravity, Urine 1.015 (1.005-1.030); Urine Appearance Clear (CLEAR); Urine Color Yellow (Yellow); pH Urine 5 (5-7)
[2023-04-27 10:01] LABS: Add Urine Microscopic? YES; Leukocyte Esterase Urine Negative (Negative); Urobilinogen Urine Norm (Negative)
--- NOTE | 2023-04-27 10:02 | PC.NURSE ---
Patient brought in by EMS, c/o chest pain, abdominal pain and bilateral leg pain. [place] with dry heaving, checked BG upon arrival and sent blood/urine to lab. Patient getting EKG now. at bedside, call light within reach.
--- NOTE | 2023-04-27 10:05 | ECG_ITS ---
[facility] Test Date: 2023-04-27 Pat Name: Evelyn Farley Department: Room: Gender: Female Translator: : 1945 Requested By: Rajinder Lira Order Number: [id number] Bever[place] MD: Dhruv Clement M.D. Measurements Intervals [place] Rate: 103 P: 82 CA: 167 QRS: -24 QRSD: 150 T: 129 QT: 418 QTc: 549 Interpretive Statements SINUS TACHYCARDIA LEFT BUNDLE BRANCH BLOCK [120+ ms QRS DURATION, 80+ ms Q/S IN V1/V2, 85+ ms R IN I/aVL/V5/V6] Compared to ECG 03/27/2023 18:56:08 Atrial abnormality no longer present Electronically Signed On 04-27-2023 12:59:49 CDT by Dhruv Clement M.D. [email or web address]
[2023-04-27 10:07] LABS: RBC Urine 0-4 /hpf (0-2)
[2023-04-27 10:08] LABS: Bacteria Urine TRACE /hpf; Mucus Urine 1+ /hpf; WBC Urine 0-4 /hpf (0-5)
[2023-04-27 10:09] LABS: Add Urine Culture? No
--- NOTE | 2023-04-27 10:22 | PC.PHAR ---
pt states she takes care of her own medications-pt states she uses levemir flexpen 60 units bid rx filled 04/10/23 27d/s for 80 units bid-pt states she still uses novolog flexpen u-100 5 units tid rx last filled 05/15/2022 at [facility]-pt states the dr sanchez her ramipril 5mg hs rx filled 02/05/23 90d/s pt states not taken for 2 months-pt states she took her insulins this am pts states there is no way the pt took her insulin today-
[2023-04-27 10:42] LABS: Troponin T (5th) Once 14 ng/L (0-10)
[2023-04-27] MEDS: HYDROcodone-acetaminophen 5-325 mg Tablet 1 TAB PO (11:02)
[2023-04-27 12:32] LABS: Anion Gap 21.7 (5-19); Blood Urea Nitrogen 31 mg/dL (8-23); Calcium 8.4 mg/dL (8.5-10.5); Carbon Dioxide 20 mmol/L (22-29); Chloride 94 mmol/L (98-107); Osmolality Calculated 303 mOsm/kg (285-295); Potassium 3.7 mmol/L (3.5-5.1); Sodium 132 mmol/L (136-145)
[2023-04-27 12:33] LABS: Troponin T (5th) Once 21 ng/L (0-10)
[2023-04-27 12:57] LABS: Glucose 500 mg/dL (65-115)
[2023-04-27] MEDS: metoclopramide 5 mg/mL SDV 2 mL 10 MG IVP (13:18)
[2023-04-27 14:27] LABS: Glucose Point of Care 469 mg/dL (70-110)
--- NOTE | 2023-04-27 14:35 | PM.HP ---
Providers/Chief Complaint Admitting Physician: Johan Byrne MD Primary Care Provider: Jane Strickland MD Chief Complaint: N/V; HYPERGLYCEMIA History of Present Illness Evelyn Farley is a 77 year old female with a past medical history significant for type 2 diabetes mellitus, hypertension, hyperlipidemia, GERD, and multiple other comorbidities as listed below who presents to the emergency department with nausea and vomiting x1 day. Endorses associated malaise, fatigue, headache and diffuse discomfort. Denies alleviating or aggravating factors. In the ED, patient was found to have severe hyperglycemia. She was treated with multiple liters of IV fluids and IV insulin but remains severely hyperglycemic. Review of Systems Narrative: A complete review of systems was obtained and is negative except as stated in HPI. Medications/Allergies Home Medications Medication Instructions Recorded Confirmed Last Taken Type blood-glucose meter #1 ea 11/19/19 04/27/23 Unknown Rx insulin aspart U-100 100 unit/mL 5 unit (0.05 mL) SUBCUT TID 30 09/26/21 04/27/23 11/21/22 Rx (3 mL) subcutaneous pen (Novolog days #4.5 mL FlexPen U-100 Insulin aspart) multivitamin 1 tab PO QAM 05/23/22 04/27/23 11/21/22 History aspirin 81 mg tablet,delayed 81 mg PO BEDTIME 30 days #30 tabs 09/11/22 04/27/23 11/21/22 Rx release (Adult Low Dose Aspirin) nitroglycerin 0.4 mg sublingual 0.4 mg sublingual Q5M PRN chest 09/11/22 04/27/23 Unknown Rx tablet pain #30 tabs blood sugar diagnostic (Accu-Chek #100 ea 10/01/22 04/27/23 Unknown Rx [place] Plus test strips) pen needle, diabetic 29 gauge x #100 ea 10/01/22 04/27/23 Unknown Rx 1/2 (1st Tier Unifine Pentips) blood sugar diagnostic (Accu-Chek #100 ea 11/28/22 04/27/23 Unknown Rx Mer[place] Plus test strips) rosuvastatin 40 mg tablet 40 mg PO BEDTIME #30 tabs 12/04/22 04/27/23 Unknown Rx blood-glucose meter,continuous #1 ea 12/13/22 04/27/23 Unknown Rx (Dexcom G7 Chemical Manager) blood-glucose sensor (Dexcom G7 #1 ea 12/13/22 04/27/23 Unknown Rx Sensor device) pen needle, diabetic 32 gauge x #100 ea 02/14/23 04/27/23 Unknown Rx 32 (TechLITE Pen Needle) sumatriptan succinate 100 mg tablet See Rx Instructions PO .COMPLEX 03/20/23 04/27/23 Unknown Rx #14 tabs promethazine-DM 6.25 mg-15 mg/5 mL 5 ml PO Q6H PRN cough #160 mL 03/29/23 04/27/23 Unknown Rx oral syrup amlodipine 10 mg tablet 10 mg PO DAILY #60 tabs 03/31/23 04/27/23 Unknown Rx hydralazine 25 mg tablet 25 mg PO TID #90 tabs 03/31/23 04/27/23 Unknown Rx metoprolol tartrate 100 mg tablet 100 mg PO Q12H #60 tabs 03/31/23 04/27/23 11/21/22 Rx hydrocodone 5 mg-acetaminophen 325 1 tab PO Q8H PRN pain 30 days #90 04/01/23 04/27/23 Unknown Rx mg tablet tabs clopidogrel 75 mg tablet 75 mg PO DAILY 04/27/23 04/27/23 Unknown History insulin detemir U-100 100 unit/mL 60 unit SUBCUT BID 04/27/23 04/27/23 Unknown History (3 mL) subcutaneous pen (Levemir FlexPen) omeprazole 20 mg capsule,delayed 20 mg PO BID 04/27/23 04/27/23 Unknown History release ondansetron HCl 8 mg tablet 8 mg PO Q8H PRN Nausea And Vomiting 04/27/23 04/27/23 Unknown History Allergies Allergy/AdvReac Type Severity Reaction Status Date / Time gabapentin Allergy hallucinati Verified 04/27/23 10:21 ons Iodinated Contrast Media Allergy Unknown Verified 04/27/23 10:21 nifedipine [From Procardia] Allergy Unknown Verified 04/27/23 10:21 prochlorperazine Allergy Unknown Verified 04/27/23 10:21 [From Compazine] unknown antibiotic Allergy see comment Uncoded 04/27/23 10:21 PFSH Acute PFSH: Medical History (Updated 04/27/23 @ 14:58 by Johan Byrne MD) Abdominal pain Abnormal blood sugar Abnormal TSH Abscess or cellulitis of foot Acidosis, lactic Acute maxillary sinusitis AMY (acute kidney injury) Anxiety and depression ASHD (arteriosclerotic heart disease) Cataracts, bilateral Chest pain CKD (chronic kidney disease) Colitis Colitis Colitis Community acquired pneumonia Congestive heart failure Constipation Continuous severe abdominal pain Dehydration Diabetes Diabetic ketoacidosis Diabetic neuropathy Diabetic peripheral neuropathy Diverticulitis DKA (diabetic ketoacidosis) Fibromyalgia Gastroparesis Glucose measurement between 50 mg/dl to 400mg/dl Gram-positive bacteremia History of recurrent UTI (urinary tract infection) Hospital discharge follow-up Hyperglycemia Hyperlipidemia Hypertension Hypertension Hypokalemia Hypokalemia Hypophosphatemia Insomnia Intractable abdominal pain Intractable vomiting with nausea Left renal stone Left ureteral calculus Leukocytosis Leukocytosis Migraine Nausea and vomiting Nausea, vomiting, and diarrhea Neuropathic pain NSTEMI (non-ST elevated myocardial infarction) Odynophagia Pyelonephritis Pyuria Sepsis Shingles Ureterolithiasis Urolithiasis Yeast vaginitis Surgical History H/O angioplasty H/O carpal tunnel repair H/O: hysterectomy History of cholecystectomy S/P ureteral stent placement Family History Mother , at age 65 Heart attack Father , at age 63 Heart attack Other Diabetes Hypertension Social History Smoking and tobacco status: never smoked Second hand smoke exposure: No Alcohol intake: never Substance/Drug Use: never Adopted: No Caregiver/support person: Yes (spouse) Lives independently: Yes Household members: spouse Marital status: service: No Current occupational status: retired Current gender identity: Female Special vandana needs: No Agree to transfusion: Yes Vitals/I&O/Wt Last Vital Signs Temp 98 F 04/27/23 13:00 Pulse 108 H 04/27/23 13:00 Resp 18 04/27/23 13:00 BP 137/68 04/27/23 14:00 Pulse Ox 97 04/27/23 13:00 O2 Del Method Nasal Cannula 04/27/23 13:00 O2 Flow Rate 2 04/27/23 13:00 Weight last 48 hrs Weight 63.503 kg Physical Exam Narrative: General: Patient is awake. Acutely ill appearing. Head: Normocephalic. Atraumatic. EOM intact. Dry mucous membranes. Neck: No JVD. Cardiovascular: RRR. No gallops. No murmurs. No peripheral edema. Lungs: Breath sounds are diminished in bilateral bases, no use of accessory muscles, no crackles or wheezes. Skin: No jaundice. No rashes. Abdomen: Normal bowel sounds, abdomen soft and nontender. Extremities: No cyanosis or clubbing. Musculoskeletal: No swollen or erythematous joints. Neurological: Moves all 4 extremities. No myoclonus. Urinary Catheter Management: Cisneros: Cath Placed During This Visit: yes Urinary Catheter Date of Insertion: 04/27/23 Urinary Catheter Time of Insertion: 09:30 Data 04/27/23 08:45 04/27/23 12:02 A&P Assessment and plan (1) Hyperglycemia due to diabetes mellitus: Severe hyperglycemia w/ pseudohyponatremia, metabolic acidosis Continue formulary alternative of long acting insulin at home dose Start insulin drip Patient not in DKA Evaluate for infection with CXR, blood cultures, procal (2) Nausea and vomiting: Etiology unclear UA unremarkable Infectious work up as above Consider imaging pending clinical course Clear liquid diet, advance as tolerated Anti-emetics as needed Qualifiers: Vomiting type: unspecified Qualified Code(s): R11.2 - Nausea with vomiting, unspecified (3) Hypertension: Continue home meds Plan DVT ppx: Low risk Code: Full Code Attestations Medical Necessity Statement*: Patient presents with intractable nausea and vomiting with expected hospital course to not cross two midnights. Coding Level of Care Code Acute Code for [facility] Diagnoses Hyperglycemia due to diabetes mellitus E11.65 Nausea and vomiting R11.2 Vomiting type: unspecified Hypertension I10
--- NOTE | 2023-04-27 14:51 | XRR_ITS ---
PROCEDURE INFORMATION: Exam: XR Chest Exam date and time: 04/27/2023 2:55 PM Age: 77 years old Clinical indication: Other: N/v; Prior surgery; Surgery date: 6+ months; Surgery type: Stents; Additional info: Evaluate for pna TECHNIQUE: Imaging protocol: Radiologic exam of the chest. Views: 1 view. COMPARISON: 1[place] [id number] 09/07/2022 1:54 AM 2. CR (CHEST, ) 03/27/2023 6:22 PM 3. CR XR chest 1V portable [id number] 03/27/2023 1:00 PM 4. CR XR chest 1V portable [id number] 09/14/2022 10:51 PM FINDINGS: Lungs: Hyperinflated lungs. Asymmetric right lower lung zone increased opacification. Stable small calcified right upper lung granuloma. Pleural spaces: Unremarkable. No pleural effusion. No pneumothorax. Heart/Mediastinum: Unremarkable. No cardiomegaly. Vasculature: Aortic arch atherosclerotic calcification. Bones/joints: No acute fracture. Degenerative changes along the spine. Stable truncation of the right distal clavicle. XR/XR chest 1V portable [id number] IMPRESSION: Right lower lung pneumonia. Recommend imaging followup to resolution to exclude an underlying lesion.
--- NOTE | 2023-04-27 14:53 | PC.NURSE ---
Patient transferring to ICU, report called to Jennifer. Called patients to update about admission POC.
[2023-04-27] MEDS: insulin regular-human 250 UNIT in sodium chloride 0.9% 250 ML 12.12 UNIT IV (15:00)
[2023-04-27 15:13] LABS: Glucose Point of Care 486 mg/dL (70-110)
[2023-04-27] MEDS: sodium chloride 0.9% 1,000 ML 75 ML IV (15:47)
[2023-04-27] MEDS: ondansetron 2 mg/ML SDV 2 mL 4 MG IVP (15:47)
[2023-04-27 17:04] LABS: Glucose Point of Care 458 mg/dL (70-110)
--- NOTE | 2023-04-27 17:04 | PC.NURSE ---
Pt was admitted to ICU via bed 2L NC. She is A&Ox4 and is able to answer all questions. Night gown and hearing aid batteries placed at bedside. Insulin drip started upon arrival and PO medications not given due to vomiting.
[2023-04-27 17:44] LABS: Glucose Point of Care 383 mg/dL (70-110)
[2023-04-27 18:24] LABS: Glucose Point of Care 336 mg/dL (70-110)
[2023-04-27] MEDS: metoclopramide 5 mg/mL SDV 2 mL IVP (18:41)
[2023-04-27] MEDS: cefTRIAXone 1,000 MG in sodium chloride 0.9% (plus) 50 ML 100 MG IV (19:06)
[2023-04-27] MEDS: doxycycline 100 MG in sodium chloride 0.9% (plus) 100 ML IV (19:35)
[2023-04-27] MEDS: insulin glargine 100 units/1 mL 60 UNIT SUBCUT (19:58)
[2023-04-27 20:05] LABS: Glucose Point of Care 252 mg/dL (70-110)
[2023-04-27] MEDS: atorvastatin 40 mg Tablet 80 MG PO (20:34)
[2023-04-27] MEDS: hyDRALAzine 25 mg Tablet PO (20:35)
[2023-04-27] MEDS: aspirin 81 mg EC Tablet PO (20:35)
[2023-04-27 23:01] LABS: Glucose Point of Care 124 mg/dL (70-110)
[2023-04-27 23:01] LABS: Glucose Point of Care 167 mg/dL (70-110)
[2023-04-27 23:01] LABS: Glucose Point of Care 91 mg/dL (70-110)
--- NOTE | 2023-04-27 23:31 | PC.NURSE ---
Notified Dr. Suazo that blood glucose is 91 and currently has insulin drip infusing at 1.9ml/h and has received 60 units of lantus. Patient is currently not experiencing any nausea or vomiting at present time and is drinking some apple juice. Orders given to stop insulin drip at present time, obtain CMP, and give patient another apple juice.
[2023-04-27 23:53] LABS: Glucose Point of Care 543 mg/dL (70-110)
[2023-04-28] VITALS (22 sets, daily range): BP systolic 107–162; BP diastolic 58–102; PULSE 77–117; RESP 13–40; TEMP 36.5–37.7; O2SAT 86–96
[2023-04-28 00:20] LABS: Glucose Point of Care 130 mg/dL (70-110)
[2023-04-28 01:43] LABS: Glucose Point of Care 160 mg/dL (70-110)
[2023-04-28 01:54] LABS: Alanine Aminotransferase 15 U/L (0-33); Anion Gap 17.2 (5-19); Aspartate Amino Transferase 25 U/L (0-32); Blood Urea Nitrogen 26 mg/dL (8-23); Calcium 8.5 mg/dL (8.5-10.5); Carbon Dioxide 21 mmol/L (22-29); Chloride 102 mmol/L (98-107); Glucose 121 mg/dL (65-115); Osmolality Calculated 288 mOsm/kg (285-295); Potassium 4.2 mmol/L (3.5-5.1); Sodium 136 mmol/L (136-145); Total Bilirubin 0.4 mg/dL (0.15-1.2); Total Protein 6.5 g/dL (6.6-8.7)
[2023-04-28 01:55] LABS: Albumin Level 3.7 g/dL (3.5-5.2); Alkaline Phosphatase 98 U/L (35-105); Globulin 2.8 g/dL (1.3-4.6)
--- NOTE | 2023-04-28 02:16 | PC.NURSE ---
Notified Dr. Suazo of Chemistry results, Potassium 4.2 and anion gap 17.2. Order given to stop insulin drip, start on accu checks ac&HS with sliding scale, do am labs at 0600 instead of 0400 this am.
[2023-04-28 02:39] LABS: Glucose Point of Care 145 mg/dL (70-110)
[2023-04-28] MEDS: HYDROcodone-acetaminophen 5-325 mg Tablet 1 TAB PO ×2 (02:56→19:14)
[2023-04-28] MEDS: metoprolol tartrate 50 mg Tablet 100 MG PO ×2 (04:59→19:14)
[2023-04-28] MEDS: sodium chloride 0.9% 1,000 ML 75 ML IV (04:59)
--- NOTE | 2023-04-28 06:26 | XRR_ITS ---
PROCEDURE INFORMATION: Exam: XR Chest Exam date and time: 04/28/2023 6:45 AM Age: 77 years old Clinical indication: Shortness of breath; Additional info: Shortness of breath/increased o2 need TECHNIQUE: Imaging protocol: Radiologic exam of the chest. Views: 1 view. COMPARISON: CR (CHEST, ) 04/27/2023 2:55 PM FINDINGS: Lungs: Pulmonary vascular congestion/edema. Possible developing infiltrate right lung base Pleural spaces: Unremarkable. No pleural effusion. No pneumothorax. Heart/Mediastinum: Unremarkable. No cardiomegaly. Bones/joints: Unremarkable. XR/XR chest 1V portable [id number] IMPRESSION: Pulmonary vascular congestion/edema. Possible infiltrate developing in the right lung base.
--- NOTE | 2023-04-28 06:27 | PC.NURSE ---
Patients reports shortness of breath, crackles noted to bilat breath sounds, O2 increased to 4L NC. Notified Dr. Suazo, order given to d/c iv fluids, given 20mg of lasix IV now, and obtain chest x-ray.
[2023-04-28] MEDS: FUROsemide 10 mg/mL SDV 2mL 20 MG IVP ×2 (06:32→10:51)
[2023-04-28 07:37] LABS: Basophils % 0.2 %; Eosinophils % 0.1 %; Hematocrit 34.9 % (37.0-47.0); Hemoglobin 10.8 g/dL (11.5-15.3); Lymphocytes # 2.7 10^3/uL (0.8-4.8); Lymphocytes % 13.8 %; Mean Corpuscular HGB Conc 30.9 g/dL (30.0-36.0); Mean Corpuscular Hemoglobin 28.2 pg (28.0-34.0); Mean Corpuscular Volume 91.1 fl (81-99); Mean Platelet Volume 11.2 fL (7.4-10.4); Monocytes # 0.8 10^3/uL (0.2-0.9); Monocytes % 4.3 %; Neutrophils # 15.73 10^3/uL (1.8-7.7); Neutrophils % 80.9 %; Nucleated Red Blood Cells % 0 %; Platelet Count 317 10^3/cmm (130-400); Red Blood Count 3.83 10^6/uL (4.1-5.3); Red Cell Distribution Width 13.8 % (12.1-15.1); White Blood Count 19.4 10^3/uL (4.0-10.0)
[2023-04-28] MEDS: metoclopramide 5 mg/mL SDV 2 mL IVP ×2 (08:33→19:11)
[2023-04-28] MEDS: doxycycline 100 MG in sodium chloride 0.9% (plus) 100 ML IV ×2 (08:37→19:47)
[2023-04-28] MEDS: clopidogrel 75 mg Tablet PO (08:44)
[2023-04-28] MEDS: pantoprazole DR 40 mg Tablet PO ×2 (08:44→19:14)
[2023-04-28] MEDS: hyDRALAzine 25 mg Tablet PO ×2 (08:45→21:12)
[2023-04-28] MEDS: amlodipine 10 mg Tablet PO (08:45)
[2023-04-28 09:37] LABS: Glucose Point of Care 117 mg/dL (70-110)
[2023-04-28] MEDS: insulin glargine 100 units/1 mL 30 UNIT SUBCUT ×2 (09:37→21:13)
[2023-04-28 09:57] LABS: Alanine Aminotransferase 15 U/L (0-33); Albumin Level 3.6 g/dL (3.5-5.2); Alkaline Phosphatase 100 U/L (35-105); Anion Gap 15.8 (5-19); Aspartate Amino Transferase 21 U/L (0-32); Blood Urea Nitrogen 23 mg/dL (8-23); C Reactive Protein 19.7 mg/L (0.0-4.9); Calcium 8.5 mg/dL (8.5-10.5); Carbon Dioxide 25 mmol/L (22-29); Chloride 102 mmol/L (98-107); Globulin 2.7 g/dL (1.3-4.6); Glucose 117 mg/dL (65-115); Osmolality Calculated 293 mOsm/kg (285-295); Phosphorus 3.1 mg/dL (2.5-4.5); Potassium 3.8 mmol/L (3.5-5.1); Sodium 139 mmol/L (136-145); Total Bilirubin 0.5 mg/dL (0.15-1.2); Total Protein 6.3 g/dL (6.6-8.7)
[2023-04-28 10:04] LABS: Procalcitonin 0.86 ng/mL (0-0.5)
[2023-04-28] MEDS: morphine 4 mg/mL SDV 1 mL 1 MG IVP (11:03)
[2023-04-28 11:58] LABS: Glucose Point of Care 111 mg/dL (70-110)
--- NOTE | 2023-04-28 14:32 | PM.PN ---
Subjective Subjective: Patient reports productive cough. Requiring supplemental oxygne support. Endorses generalized malaise and fatigue. Continues to endorse nausea and pleurisy. Denies abdominal pain or headaches. Medications: Reviewed: Yes Vitals/I&O/Wt Last Vital Signs Temp 97.7 F 04/28/23 09:00 Pulse 88 04/28/23 12:00 Resp 18 04/28/23 12:00 BP 138/72 04/28/23 12:00 Pulse Ox 91 04/28/23 12:00 O2 Del Method Nasal Cannula 04/28/23 10:00 O2 Flow Rate 4 04/28/23 10:00 04/27/23 04/28/23 04/28/23 22:59 06:59 14:59 Intake Total 348.792 / 108.444 7527.39 / 1841.182 340 / 340 Output Total 700 / 700 1600 / 2300 Balance -351.208 / -351.208 -107.61 / -458.818 340 / 340 Weight last 48 hrs Weight 67.495 kg Weight 63.503 kg Physical Exam Narrative: General: Patient is awake.? Alert. Appears fatigued. Head:? Normocephalic. Atraumatic. EOM intact.? Neck: No JVD. Cardiovascular: RRR. No gallops. No murmurs. Lungs: Bilateral dependent crackles. Increased work of breathing with speaking. Faint rhonchi in right lung base. On 4 L nasal cannula support. Skin: No jaundice. No rashes. Abdomen: Normal bowel sounds, abdomen soft and nontender. Extremities: No cyanosis or clubbing. Musculoskeletal: No swollen or erythematous joints. Neurological: Moves all 4 extremities. No myoclonus. Urinary Catheter Management: Cisneros: Cath Placed During This Visit: yes Reason for Continuing Indwelling Catheter: Accurate Measurement of Urinary Output in Critically Ill Patients Urinary Catheter Date of Insertion: 04/27/23 Urinary Catheter Time of Insertion: 09:30 Data 04/28/23 07:07 04/28/23 09:09 Micro: Microbiology 04/28/23 07:15 Blood Culture - Preliminary Blood SPECIMEN COLLECTED 04/28/23 07:07 Blood Culture - Preliminary Blood SPECIMEN COLLECTED A&P Assessment and plan (1) Community acquired pneumonia: With acute hypoxia Continue ceftriaxone (04/27-p) Continue doxycycline (04/27-p) Pulmonary toilet Continue supplemental oxygen support for SPO2 goal of 92-96% IV Lasix once (2) Hyperglycemia due to diabetes mellitus: Severe hyperglycemia has resolved Continue Lantus, dose reduced SSI Avoid hypoglycemia (3) Nausea and vomiting: Secondary to infection Clear liquid diet, advance as tolerated Anti-emetics as needed Qualifiers: Vomiting type: unspecified Qualified Code(s): R11.2 - Nausea with vomiting, unspecified (4) Hypertension: Continue Norvasc Continue Apresoline Continue Lopressor (5) CKD (chronic kidney disease): Renal function at baseline Avoid nephrotoxins Plan DVT ppx: Lovenox Code: Full Code Attestations Medical Necessity Statement*: Patient requires ongoing hospitalization for IV antibiotics, titration of insulin, and supportive care. Coding Level of Care Code Acute Code for g Fwd Diagnoses Community acquired pneumonia J18.9 Hyperglycemia due to diabetes mellitus E11.65 Nausea and vomiting R11.2 Vomiting type: unspecified Hypertension I10 CKD (chronic kidney disease) N18.9
--- NOTE | 2023-04-28 16:00 | PC.NURSE ---
Transfer Note Patient transferred to med-surg room 267 from ICU via bed. Handoff report given to CAN Fiore. Upon transfer patient is alert/oriented x4, no wounds or skin issues at this time. All belongings transferred with patient and placed at bedside. Patient oriented to environment and equipment. Covering service notified. Orders reviewed and will continue to monitor. Family notified.
[2023-04-28] MEDS: cefTRIAXone 1,000 MG in sodium chloride 0.9% (plus) 50 ML 100 MG IV (19:09)
[2023-04-28 19:25] LABS: Glucose Point of Care 135 mg/dL (70-110)
[2023-04-28 21:12] LABS: Glucose Point of Care 133 mg/dL (70-110)
[2023-04-28] MEDS: aspirin 81 mg EC Tablet PO (21:12)
[2023-04-28] MEDS: atorvastatin 40 mg Tablet 80 MG PO (21:12)
[2023-04-29] VITALS (24 sets, daily range): BP systolic 110–145; BP diastolic 50–78; PULSE 80–99; RESP 11–35; TEMP 36.9–37.6; O2SAT 90–98
[2023-04-29] MEDS: morphine 4 mg/mL SDV 1 mL 1 MG IVP ×4 (00:09→21:40)
[2023-04-29 03:28] LABS: Glucose Point of Care 67 mg/dL (70-110)
--- NOTE | 2023-04-29 03:33 | PC.NURSE ---
Reports feels like blood glucose is dropping. Blood sugary 67 on finger stick. Milk and peanut butter given. Will recheck.
[2023-04-29 03:46] LABS: Basophils # 0.1 10^3/uL (0.0-0.1); Basophils % 0.3 %; Eosinophils # 0.1 10^3/uL (0.0-0.8); Eosinophils % 0.3 %; Hematocrit 29.9 % (37.0-47.0); Hemoglobin 9.3 g/dL (11.5-15.3); Lymphocytes # 4.5 10^3/uL (0.8-4.8); Lymphocytes % 25.9 %; Mean Corpuscular HGB Conc 31.1 g/dL (30.0-36.0); Mean Corpuscular Hemoglobin 27.8 pg (28.0-34.0); Mean Corpuscular Volume 89.5 fl (81-99); Mean Platelet Volume 10.4 fL (7.4-10.4); Monocytes # 1.2 10^3/uL (0.2-0.9); Monocytes % 6.9 %; Neutrophils # 11.38 10^3/uL (1.8-7.7); Neutrophils % 66.1 %; Nucleated Red Blood Cells % 0 %; Platelet Count 337 10^3/cmm (130-400); Red Blood Count 3.34 10^6/uL (4.1-5.3); Red Cell Distribution Width 13.5 % (12.1-15.1); White Blood Count 17.2 10^3/uL (4.0-10.0)
[2023-04-29 04:07] LABS: Albumin Level 3.2 g/dL (3.5-5.2); Anion Gap 13.3 (5-19); Blood Urea Nitrogen 19 mg/dL (8-23); Calcium 8.4 mg/dL (8.5-10.5); Carbon Dioxide 28 mmol/L (22-29); Chloride 102 mmol/L (98-107); Glucose 55 mg/dL (65-115); Magnesium 1.8 mg/dL (1.7-2.3); Phosphorus 2.4 mg/dL (2.5-4.5); Potassium 3.3 mmol/L (3.5-5.1); Sodium 140 mmol/L (136-145)
--- NOTE | 2023-04-29 04:09 | PC.NURSE ---
Blood glucose 99. Patient states that she feels a lot better.
[2023-04-29 04:11] LABS: Glucose Point of Care 99 mg/dL (70-110)
[2023-04-29] MEDS: metoprolol tartrate 50 mg Tablet 100 MG PO ×2 (05:47→17:20)
--- NOTE | 2023-04-29 05:48 | PC.NURSE ---
Blood glucose 138.
[2023-04-29] MEDS: HYDROcodone-acetaminophen 5-325 mg Tablet 1 TAB PO ×2 (05:51→15:49)
[2023-04-29 05:53] LABS: Glucose Point of Care 138 mg/dL (70-110)
[2023-04-29 07:10] LABS: Glucose Point of Care 172 mg/dL (70-110)
[2023-04-29] MEDS: insulin glargine 100 units/1 mL 30 UNIT SUBCUT ×2 (09:45→21:34)
[2023-04-29] MEDS: insulin lispro 100 unit/1 mL SUBCUT ×3 (09:45→21:35)
[2023-04-29] MEDS: doxycycline 100 MG in sodium chloride 0.9% (plus) 100 ML IV ×2 (09:46→19:41)
[2023-04-29] MEDS: amlodipine 10 mg Tablet PO (09:48)
[2023-04-29] MEDS: hyDRALAzine 25 mg Tablet PO ×3 (09:48→21:32)
[2023-04-29] MEDS: pantoprazole DR 40 mg Tablet PO ×2 (09:48→17:20)
[2023-04-29] MEDS: clopidogrel 75 mg Tablet PO (09:48)
--- NOTE | 2023-04-29 10:10 | PC.CHAP ---
Pastoral Care Encounter/Spiritual Assessment Type of Contact [] Declined hospital insurance clerk visit [] Patient/Family/Request visit [] Outpatient visit [] Follow-up visit [] Physician referral [] Code/Alert [x] Routine visit [] Staff referral [] Actively dying [xx] Patient sleeping [] Family support [] [] Out of room [] Palliative care [] [] Receiving care in room [] Pre-surgical visit [] Trauma [] Long length of stay [x] ICU visit [] Other: Relational/Emotional Strength [] Patient feels connected with others/family/visitors/staff [] Distress [] Loneliness/isolation [] Abandonment Spirituality of Patient [] Person of Audrey [] Attends Zoroastrian of their Audrey [] Believes in Prayer [] Reads Bible or Gnosticism materials [] There are Spiritual issues to be addressed Product Assembler Interventions [x] Prayer [] Active listening [] Non-anxious presence [] Spiritual/emotional support [] Crisis/trauma care [] Spiritual counseling [] Bereavement support [] Provided bereavement packet [] Provided Bible/devotional materials [] Provided toy/stuffed animal, coloring book to patient or family member [] Provided Communion [] Anointing/[place] [] Salvation [x] Completed spiritual assessment [] Other: Impact on Illness or Injury [] Angry [] Fearful [] Anxious [] Often cries [] Exhaustion [] Unable to work [] Unable to attend catholic [] Unable to walk/stand [] Unable to read [] Unable to drive [] Unable to eat/drink [] Unable to sleep [] Unable to be with family [] Patient intubated [] Other: Summary Time spent with patient
[2023-04-29] MEDS: potassium chloride ER 20 mEq Tablet 40 MEQ PO (10:16)
[2023-04-29 11:10] LABS: Glucose Point of Care 276 mg/dL (70-110)
[2023-04-29 17:02] LABS: Glucose Point of Care 85 mg/dL (70-110)
[2023-04-29] MEDS: cefTRIAXone 1,000 MG in sodium chloride 0.9% (plus) 50 ML 100 MG IV (17:31)
--- NOTE | 2023-04-29 18:52 | PM.PN ---
Subjective Subjective: Patient was seen and examined this morning, denied any significant shortness of breath, good urine output with Lasix, has been afebrile, denied any cough, feels better, saturating well on minimal supplemental oxygen. Medications: Reviewed: Yes Medication Review Details: Generic Name Dose Route Start Last Admin Trade Name Freq PRN Reason Stop Dose Admin Hydrocodone Bitart /Acetaminophen 1 tab 04/27/23 15:38 04/29/23 15:49 Hydrocodone-Acet aminophen 5-325 Mg Tablet PO 1 tab Q8H PRN Administration pain Amlodipine Besylat e 10 mg 04/28/23 09:00 04/29/23 09:48 Amlodipine 10 Mg Tablet PO 10 mg DAILY LIAT Administration Aspirin 81 mg 04/27/23 21:00 04/28/23 21:12 Aspirin 81 Mg Ec Tablet PO 81 mg BEDTIME LIAT Administration Atorvastatin Calci um 80 mg 04/27/23 21:00 04/28/23 21:12 Atorvastatin 40 Mg Tablet PO 80 mg BEDTIME LIAT Administration Clopidogrel Bisulf ate 75 mg 04/28/23 09:00 04/29/23 09:48 Clopidogrel 75 M g Tablet PO 75 mg DAILY LIAT Administration Hydralazine HCl 25 mg 04/27/23 15:38 04/29/23 15:49 Hydralazine 25 M g Tablet PO 25 mg TID LIAT Administration Ceftriaxone Sodium 1,000 mg/ 50 mls @ 100 mls/ hr 04/27/23 18:30 04/29/23 18:04 Sodium Chloride IV Infused Q24H LIAT Infusion Protocol Doxycycline Hyclat e 100 mg/ 100 mls @ 100 mls /hr 04/27/23 18:30 04/29/23 10:46 Sodium Chloride IV Infused Q12H LIAT Infusion Protocol Insulin Glargine 30 unit 04/28/23 20:00 04/29/23 09:45 Insulin Glargine 100 Units/1 Ml SUBCUT 30 unit 0800,2000 LIAT Administration Insulin Human Lisp ro 0 unit 04/28/23 08:00 04/29/23 17:19 Insulin Lispro 1 00 Unit/1 Ml SUBCUT Not Given WM&BEDTIME LIAT Protocol Metoclopramide HCl 5 mg 04/27/23 18:04 04/28/23 19:11 Metoclopramide 5 Mg/Ml Sdv 2 Ml IVP 5 mg Q6H PRN Administration NAUSEA AND VOMITI NG Metoprolol Tartrat e 100 mg 04/27/23 18:00 04/29/23 17:20 Metoprolol Tartr ate 50 Mg Tablet PO 100 mg Q12H LIAT Administration Morphine Sulfate 1 mg 04/28/23 10:18 04/29/23 18:01 Morphine 4 Mg/Ml Sdv 1 Ml IVP 1 mg Q2H PRN Administration SEVERE PAIN Ondansetron HCl 4 mg 04/27/23 15:38 04/27/23 15:47 Ondansetron 2 Mg /Ml Sdv 2 Ml IVP 4 mg Q8H PRN Administration vomiting, or N/V if npo Pantoprazole Sodiu m 40 mg 04/27/23 18:00 04/29/23 17:[address] 40 Mg Tablet PO 40 mg BID LIAT Administration Vitals/I&O/Wt Last Vital Signs Temp 99.1 F 04/29/23 18:00 Pulse 92 04/29/23 18:00 Resp 18 04/29/23 18:01 BP 110/65 04/29/23 18:00 Pulse Ox 98 04/29/23 18:01 O2 Del Method Nasal Cannula 04/29/23 18:00 O2 Flow Rate 1 04/29/23 15:37 04/29/23 04/29/23 04/29/23 06:59 14:59 22:59 Intake Total 300 / 1230 700 / 700 530 / 1230 Output Total 850 / 2950 1550 / 1550 Balance -550 / -1720 700 / 700 -1020 / -320 Weight last 48 hrs Weight 66.678 kg Weight 67.495 kg Physical Exam HENMT: COMMON NORMALS: normocephalic and atraumatic HEAD & SCALP: normocephalic and atraumatic Resp: COMMON NORMALS: normal respiratory effort and clear to auscultation bilaterally AUSCULTATION: clear to auscultation bilaterally Cardio: COMMON NORMALS: regular rate, regular rhythm, S1 normal heart sound present, S2 normal heart sound present, No gallops present (Cardio), No murmurs present (Cardio), No rub (Cardio) and Peripheral pulses 2+ throughout RATE: regular rate RHYTHM: regular rhythm HEART SOUNDS: S1 normal heart sound present and S2 normal heart sound present PERIPHERAL PULSES: Peripheral pulses 2+ throughout GI: COMMON NORMALS: Normal to inspection, nondistended, normoactive bowel sounds present, Soft to palpation, non-tender, No hepatosplenomegaly present and no masses AUSCULTATION: Yes normoactive bowel sounds PALPATION: Yes Soft to palpation and Yes No hepatosplenomegaly present RECTAL EXAM: deferred Extremity: COMMON NORMALS: no clubbing, cyanosis or edema and no pedal edema Urinary Catheter Management: Cisneros: Cath Placed During This Visit: yes Reason for Continuing Indwelling Catheter: Accurate Measurement of Urinary Output in Critically Ill Patients Urinary Catheter Date of Insertion: 04/27/23 Urinary Catheter Time of Insertion: 09:30 Data 04/29/23 03:08 04/29/23 03:08 Micro: Microbiology 04/28/23 07:15 Blood Culture - Preliminary Blood NEGATIVE TO DATE 04/28/23 07:07 Blood Culture - Preliminary Blood NEGATIVE TO DATE A&P Assessment and plan (1) Community acquired pneumonia: With acute hypoxia Continue ceftriaxone (04/27-p) Continue doxycycline (04/27-p) Pulmonary toilet Continue supplemental oxygen support for SPO2 goal of 92-96% IV Lasix once (2) Hyperglycemia due to diabetes mellitus: Severe hyperglycemia has resolved Continue Lantus, dose reduced SSI Avoid hypoglycemia (3) Nausea and vomiting: Secondary to infection Clear liquid diet, advance as tolerated Anti-emetics as needed Qualifiers: Vomiting type: unspecified Qualified Code(s): R11.2 - Nausea with vomiting, unspecified (4) Hypertension: Continue Norvasc Continue Apresoline Continue Lopressor (5) CKD (chronic kidney disease): Renal function at baseline Avoid nephrotoxins Plan DVT ppx: Lovenox Code: Full Code Attestations Medical Necessity Statement*: Needs to be in hospital for IV antibiotics. Coding Level of Care Code Acute Code for Chg Fwd Diagnoses Community acquired pneumonia J18.9 Hyperglycemia due to diabetes mellitus E11.65 Nausea and vomiting R11.2 Vomiting type: unspecified Hypertension I10 CKD (chronic kidney disease) N18.9
[2023-04-29 20:36] LABS: Glucose Point of Care 167 mg/dL (70-110)
[2023-04-29] MEDS: atorvastatin 40 mg Tablet 80 MG PO (21:32)
[2023-04-29] MEDS: aspirin 81 mg EC Tablet PO (21:32)
[2023-04-30] VITALS (10 sets, daily range): BP systolic 115–136; BP diastolic 50–71; PULSE 76–105; RESP 16–20; TEMP 36.4–37.2; O2SAT 91–97
[2023-04-30] MEDS: HYDROcodone-acetaminophen 5-325 mg Tablet 1 TAB PO ×3 (01:19→18:56)
[2023-04-30] MEDS: morphine 4 mg/mL SDV 1 mL 1 MG IVP (03:38)
[2023-04-30] MEDS: ondansetron 2 mg/ML SDV 2 mL 4 MG IVP ×2 (04:16→16:29)
[2023-04-30] MEDS: metoprolol tartrate 50 mg Tablet 100 MG PO ×2 (05:44→17:46)
[2023-04-30 05:48] LABS: Alanine Aminotransferase 8 U/L (0-33); Albumin Level 2.9 g/dL (3.5-5.2); Alkaline Phosphatase 86 U/L (35-105); Aspartate Amino Transferase 10 U/L (0-32); Blood Urea Nitrogen 21 mg/dL (8-23); Calcium 8.4 mg/dL (8.5-10.5); Carbon Dioxide 26 mmol/L (22-29); Chloride 102 mmol/L (98-107); Globulin 2.7 g/dL (1.3-4.6); Glucose 126 mg/dL (65-115); Osmolality Calculated 289 mOsm/kg (285-295); Sodium 137 mmol/L (136-145); Total Bilirubin 0.4 mg/dL (0.15-1.2); Total Protein 5.6 g/dL (6.6-8.7)
[2023-04-30 05:54] LABS: Anion Gap 12.9 (5-19); Potassium 3.9 mmol/L (3.5-5.1)
[2023-04-30 06:30] LABS: Glucose Point of Care 127 mg/dL (70-110)
[2023-04-30 08:30] LABS: Basophils % 0.2 %; Eosinophils # 0.1 10^3/uL (0.0-0.8); Eosinophils % 0.8 %; Hematocrit 31.5 % (37.0-47.0); Lymphocytes # 1.9 10^3/uL (0.8-4.8); Lymphocytes % 20.5 %; Mean Corpuscular HGB Conc 31.7 g/dL (30.0-36.0); Mean Corpuscular Volume 91.3 fl (81-99); Mean Platelet Volume 10.5 fL (7.4-10.4); Monocytes # 0.5 10^3/uL (0.2-0.9); Monocytes % 5.8 %; Neutrophils # 6.53 10^3/uL (1.8-7.7); Neutrophils % 72.1 %; Nucleated Red Blood Cells % 0 %; Platelet Count 276 10^3/cmm (130-400); Red Blood Count 3.45 10^6/uL (4.1-5.3); Red Cell Distribution Width 13.4 % (12.1-15.1); White Blood Count 9.1 10^3/uL (4.0-10.0)
[2023-04-30] MEDS: doxycycline 100 MG in sodium chloride 0.9% (plus) 100 ML IV (09:53)
[2023-04-30] MEDS: pantoprazole DR 40 mg Tablet PO ×2 (09:54→17:46)
[2023-04-30] MEDS: clopidogrel 75 mg Tablet PO (09:54)
[2023-04-30] MEDS: hyDRALAzine 25 mg Tablet PO ×3 (09:54→20:40)
[2023-04-30] MEDS: amlodipine 10 mg Tablet PO (09:55)
[2023-04-30] MEDS: insulin glargine 100 units/1 mL 30 UNIT SUBCUT ×2 (09:59→21:39)
[2023-04-30 10:58] LABS: Glucose Point of Care 284 mg/dL (70-110)
[2023-04-30] MEDS: insulin lispro 100 unit/1 mL SUBCUT ×3 (11:54→21:39)
--- NOTE | 2023-04-30 12:53 | PM.PN ---
Subjective Subjective: Patient was seen and examined this morning, overall doing better, has been afebrile, denied any significant shortness of breath at rest, blood culture has remained negative so far. Medications: Reviewed: Yes Medication Review Details: Generic Name Dose Route Start Last Admin Trade Name Freq PRN Reason Stop Dose Admin Hydrocodone Bitart /Acetaminophen 1 tab 04/27/23 15:38 04/30/23 09:59 Hydrocodone-Acet aminophen 5-325 Mg Tablet PO 1 tab Q8H PRN Administration pain Amlodipine Besylat e 10 mg 04/28/23 09:00 04/30/23 09:55 Amlodipine 10 Mg Tablet PO 10 mg DAILY LIAT Administration Aspirin 81 mg 04/27/23 21:00 04/29/23 21:32 Aspirin 81 Mg Ec Tablet PO 81 mg BEDTIME LIAT Administration Atorvastatin Calci um 80 mg 04/27/23 21:00 04/29/23 21:32 Atorvastatin 40 Mg Tablet PO 80 mg BEDTIME LIAT Administration Clopidogrel Bisulf ate 75 mg 04/28/23 09:00 04/30/23 09:54 Clopidogrel 75 M g Tablet PO 75 mg DAILY LIAT Administration Hydralazine HCl 25 mg 04/27/23 15:38 04/30/23 09:54 Hydralazine 25 M g Tablet PO 25 mg TID LIAT Administration Ceftriaxone Sodium 1,000 mg/ 50 mls @ 100 mls/ hr 04/27/23 18:30 04/29/23 18:04 Sodium Chloride IV Infused Q24H LIAT Infusion Protocol Insulin Glargine 30 unit 04/28/23 20:00 04/30/23 09:59 Insulin Glargine 100 Units/1 Ml SUBCUT 30 unit 08,1999 LIAT Administration Insulin Human Lisp ro 0 unit 04/28/23 08:00 04/30/23 11:54 Insulin Lispro 1 00 Unit/1 Ml SUBCUT 4 unit WM&BEDTIME LIAT Administration Protocol Metoclopramide HCl 5 mg 04/27/23 18:04 04/28/23 19:11 Metoclopramide 5 Mg/Ml Sdv 2 Ml IVP 5 mg Q6H PRN Administration NAUSEA AND VOMITI NG Metoprolol Tartrat e 100 mg 04/27/23 18:00 04/30/23 05:44 Metoprolol Tartr ate 50 Mg Tablet PO 100 mg Q12H LIAT Administration Morphine Sulfate 1 mg 04/28/23 10:18 04/30/23 03:38 Morphine 4 Mg/Ml Sdv 1 Ml IVP 1 mg Q2H PRN Administration SEVERE PAIN Ondansetron HCl 4 mg 04/27/23 15:38 04/30/23 04:16 Ondansetron 2 Mg /Ml Sdv 2 Ml IVP 4 mg Q8H PRN Administration vomiting, or N/V if npo Pantoprazole Sodiu m 40 mg 04/27/23 18:00 04/30/23 09:[address] 40 Mg Tablet PO 40 mg BID LIAT Administration Vitals/I&O/Wt Last Vital Signs Temp 98.8 F 04/30/23 12:00 Pulse 77 04/30/23 12:00 Resp 18 04/30/23 12:00 BP 119/58 04/30/23 12:00 Pulse Ox 92 04/30/23 12:00 O2 Del Method Nasal Cannula 04/29/23 18:00 O2 Flow Rate 1 04/30/23 08:00 04/29/23 04/30/23 04/30/23 22:59 06:59 14:59 Intake Total 870 / 1570 120 / 1690 340 / 340 Output Total 1550 / 1550 700 / 2250 525 / 525 Balance -680 / 20 -580 / -560 -185 / -185 Weight last 48 hrs Weight 66.224 kg Weight 66.678 kg Physical Exam HENMT: COMMON NORMALS: normocephalic and atraumatic HEAD & SCALP: normocephalic and atraumatic Resp: COMMON NORMALS: normal respiratory effort and clear to auscultation bilaterally AUSCULTATION: clear to auscultation bilaterally Cardio: COMMON NORMALS: regular rate, regular rhythm, S1 normal heart sound present, S2 normal heart sound present, No gallops present (Cardio), No murmurs present (Cardio), No rub (Cardio) and Peripheral pulses 2+ throughout RATE: regular rate RHYTHM: regular rhythm HEART SOUNDS: S1 normal heart sound present and S2 normal heart sound present PERIPHERAL PULSES: Peripheral pulses 2+ throughout GI: COMMON NORMALS: Normal to inspection, nondistended, normoactive bowel sounds present, Soft to palpation, non-tender, No hepatosplenomegaly present and no masses AUSCULTATION: Yes normoactive bowel sounds PALPATION: Yes Soft to palpation and Yes No hepatosplenomegaly present RECTAL EXAM: deferred Extremity: COMMON NORMALS: no clubbing, cyanosis or edema and no pedal edema Urinary Catheter Management: Cisneros: Cath Placed During This Visit: yes, but has since been removed by the nurse Reason for Continuing Indwelling Catheter: Decision to DC Catheter Urinary Catheter Date of Insertion: 04/27/23 Urinary Catheter Time of Insertion: 09:30 Date Urinary Catheter Removed: 04/30/23 Time Urinary Catheter Discontinued: 11:37 Data 04/30/23 07:50 04/30/23 05:15 A&P Assessment and plan (1) Community acquired pneumonia: With acute hypoxia Continue ceftriaxone (04/27-p) Continue doxycycline (04/27-p) Pulmonary toilet Continue supplemental oxygen support for SPO2 goal of 92-96% IV Lasix once (2) Hyperglycemia due to diabetes mellitus: Severe hyperglycemia has resolved Continue Lantus, dose reduced SSI Avoid hypoglycemia (3) Nausea and vomiting: Secondary to infection Clear liquid diet, advance as tolerated Anti-emetics as needed Qualifiers: Vomiting type: unspecified Qualified Code(s): R11.2 - Nausea with vomiting, unspecified (4) Hypertension: Continue Norvasc Continue Apresoline Continue Lopressor (5) CKD (chronic kidney disease): Renal function at baseline Avoid nephrotoxins Plan DVT ppx: Lovenox Code: Full Code Attestations Medical Necessity Statement*: In hospital for IV antibiotics Coding Level of Care Code Acute Code for Chg Fwd Diagnoses Community acquired pneumonia J18.9 Hyperglycemia due to diabetes mellitus E11.65 Nausea and vomiting R11.2 Vomiting type: unspecified Hypertension I10 CKD (chronic kidney disease) N18.9
[2023-04-30 17:02] LABS: Glucose Point of Care 218 mg/dL (70-110)
[2023-04-30] MEDS: doxycycline 100 mg Tablet PO (17:46)
[2023-04-30] MEDS: cefTRIAXone 1,000 MG in sodium chloride 0.9% (plus) 50 ML 100 MG IV (17:46)
[2023-04-30] MEDS: aspirin 81 mg EC Tablet PO (20:39)
[2023-04-30] MEDS: atorvastatin 40 mg Tablet 80 MG PO (20:40)
[2023-04-30] MEDS: metoclopramide 5 mg/mL SDV 2 mL IVP (21:01)
[2023-04-30 21:38] LABS: Glucose Point of Care 319 mg/dL (70-110)
[2023-04-30 21:42] LABS: Glucose Point of Care 316 mg/dL (70-110)
[2023-05-01] VITALS (7 sets, daily range): BP systolic 116–126; BP diastolic 56–71; PULSE 73–84; RESP 15–18; TEMP 36.4–37.1; O2SAT 95–97
[2023-05-01] MEDS: morphine 4 mg/mL SDV 1 mL 1 MG IVP (01:28)
[2023-05-01] MEDS: ondansetron 2 mg/ML SDV 2 mL 4 MG IVP ×2 (01:28→09:20)
[2023-05-01 05:40] LABS: Basophils % 0.3 %; Eosinophils # 0.1 10^3/uL (0.0-0.8); Eosinophils % 2.1 %; Hematocrit 27.7 % (37.0-47.0); Hemoglobin 9.3 g/dL (11.5-15.3); Lymphocytes % 29.6 %; Mean Corpuscular HGB Conc 33.6 g/dL (30.0-36.0); Mean Corpuscular Hemoglobin 30.1 pg (28.0-34.0); Mean Corpuscular Volume 89.6 fl (81-99); Mean Platelet Volume 11.3 fL (7.4-10.4); Monocytes # 0.5 10^3/uL (0.2-0.9); Monocytes % 6.8 %; Neutrophils # 4.05 10^3/uL (1.8-7.7); Neutrophils % 60.7 %; Nucleated Red Blood Cells % 0 %; Platelet Count 348 10^3/cmm (130-400); Red Blood Count 3.09 10^6/uL (4.1-5.3); Red Cell Distribution Width 13.6 % (12.1-15.1); White Blood Count 6.7 10^3/uL (4.0-10.0)
[2023-05-01] MEDS: HYDROcodone-acetaminophen 5-325 mg Tablet 1 TAB PO (05:41)
[2023-05-01] MEDS: metoprolol tartrate 50 mg Tablet 100 MG PO (05:42)
[2023-05-01 06:10] LABS: Alanine Aminotransferase 6 U/L (0-33); Albumin Level 3.3 g/dL (3.5-5.2); Alkaline Phosphatase 87 U/L (35-105); Aspartate Amino Transferase 8 U/L (0-32); Blood Urea Nitrogen 21 mg/dL (8-23); Calcium 8.7 mg/dL (8.5-10.5); Carbon Dioxide 28 mmol/L (22-29); Chloride 103 mmol/L (98-107); Glucose 84 mg/dL (65-115); Osmolality Calculated 290 mOsm/kg (285-295); Sodium 139 mmol/L (136-145); Total Bilirubin 0.4 mg/dL (0.15-1.2); Total Protein 5.3 g/dL (6.6-8.7)
[2023-05-01 06:12] LABS: Anion Gap 11.8 (5-19); Potassium 3.8 mmol/L (3.5-5.1)
[2023-05-01 06:38] LABS: Glucose Point of Care 93 mg/dL (70-110)
[2023-05-01] MEDS: insulin glargine 100 units/1 mL 30 UNIT SUBCUT (09:25)
--- NOTE | 2023-05-01 10:00 | PM.DCS ---
Discharge Providers Date of Admission: 04/28/23 14:25 Date of Discharge: May 01, 2023 Attending Provider at Admission: Johan Byrne MD Attending Provider at Discharge: Davion Wolff MD Primary Care Provider: Jane Strickland MD Diagnoses at Discharge Discharge Diagnosis (1) Community acquired pneumonia: Status: Acute (2) Hyperglycemia due to diabetes mellitus: Status: Acute (3) Nausea and vomiting: Status: Acute Qualifiers: Vomiting type: unspecified Qualified Code(s): R11.2 - Nausea with vomiting, unspecified (4) Hypertension: Status: Acute (5) CKD (chronic kidney disease): Status: Acute Reason for Visit Reason for Visit: N/V; HYPERGLYCEMIA Hospital Course Hospital Course ?77 year old female with a past medical history significant for type 2 diabetes mellitus, hypertension, hyperlipidemia, GERD, initially came in with chief complaint of ?nausea and vomiting x1 day.? Endorses associated malaise, fatigue, headache and diffuse discomfort. Was found to be hyperglycemic and was started on insulin drip later she was transitioned to long and short acting insulin, patient later also started complaining of productive cough, shortness of breath, she is also requiring supplemental oxygen: X-ray chest showed: Right lower lobe pneumonia: For which she was started on ceftriaxone and doxycycline, blood cultures were negative, sputum culture was not available, patient also received 1 dose of Lasix, during hospital stay as subsequent x-ray chest showed features suggestive of pulmonary vascular congestion. Overall patient responded well to above medical management, at the time of discharge she was saturating well on room air, she was afebrile hemodynamically stable, denied any significant shortness of breath, she was discharged on p.o. levofloxacin for additional 5 days. Physical Exam HENMT: COMMON NORMALS: normocephalic and atraumatic HEAD & SCALP: normocephalic and atraumatic Resp: COMMON NORMALS: clear to auscultation bilaterally AUSCULTATION: clear to auscultation bilaterally Cardio: COMMON NORMALS: regular rate, regular rhythm, S1 normal heart sound present, S2 normal heart sound present, No gallops present (Cardio), No murmurs present (Cardio), No rub (Cardio) and Peripheral pulses 2+ throughout RATE: regular rate RHYTHM: regular rhythm HEART SOUNDS: S1 normal heart sound present and S2 normal heart sound present PERIPHERAL PULSES: Peripheral pulses 2+ throughout GI: COMMON NORMALS: Normal to inspection, nondistended, normoactive bowel sounds present, Soft to palpation, non-tender, No hepatosplenomegaly present and no masses AUSCULTATION: Yes normoactive bowel sounds PALPATION: Yes Soft to palpation and Yes No hepatosplenomegaly present RECTAL EXAM: deferred Extremity: COMMON NORMALS: no clubbing, cyanosis or edema and no pedal edema Urinary Catheter Management: Cisneros: Cath Placed During This Visit: yes, but has since been removed by the nurse Reason for Continuing Indwelling Catheter: Decision to DC Catheter Urinary Catheter Date of Insertion: 04/27/23 Urinary Catheter Time of Insertion: 09:30 Date Urinary Catheter Removed: 04/30/23 Time Urinary Catheter Discontinued: 11:37 Discharge Data Studies Completed and Pending Completed Studies During Hospitalization Category Date Time Status XR chest 1V portable [id number] Routine Exams 04/27/23 14:51 Completed XR chest 1V portable [id number] Stat Exams 04/28/23 06:26 Completed Pending at discharge Category Date Time Status Blood Culture Stat Lab 04/27/23 15:01 Results CBC Auto Diff [Complete Blood Count w/Auto] AM LABS Lab 05/02/23 04:00 Ordered CMP [Comprehensive Metabolic Panel] AM LABS Lab 05/02/23 04:00 Ordered Radiology Impressions Chest X-Ray 04/28/23 06:26 IMPRESSION: Pulmonary vascular congestion/edema. Possible infiltrate developing in the right lung base. Laboratory Results WBC 6.7 10^3/uL (4.0-10.0) 05/01/23 05:15 Corrected WBC Cancelled 04/30/23 05:15 RBC 3.09 10^6/uL (4.1-5.3) L 05/01/23 05:15 Hgb 9.3 g/dL (11.5-15.3) L 05/01/23 05:15 Hct 27.7 % (37.0-47.0) L 05/01/23 05:15 MCV 89.6 fl (81-99) 05/01/23 05:15 MCH 30.1 pg (28.0-34.0) 05/01/23 05:15 MCHC 33.6 g/dL (30.0-36.0) D 05/01/23 05:15 RDW 13.6 % (12.1-15.1) 05/01/23 05:15 Plt Count 348 10^3/cmm (130-400) 05/01/23 05:15 MPV 11.3 fL (7.4-10.4) H 05/01/23 05:15 Gran % Cancelled 04/30/23 05:15 Neut % (Auto) 60.7 % 05/01/23 05:15 Lymph % (Auto) 29.6 % 05/01/23 05:15 [place] % (Auto) 6.8 % 05/01/23 05:15 Eos % (Auto) 2.1 % 05/01/23 05:15 Baso % (Auto) 0.3 % 05/01/23 05:15 Neut # (Auto) 4.05 10^3/uL (1.8-7.7) 05/01/23 05:15 Lymph # (Auto) 2.0 10^3/uL (0.8-4.8) 05/01/23 05:15 [place] # (Auto) 0.5 10^3/uL (0.2-0.9) 05/01/23 05:15 Absolute Gran (auto) Cancelled 04/30/23 05:15 Eos # (Auto) 0.1 10^3/uL (0.0-0.8) 05/01/23 05:15 Baso # (Auto) 0.0 10^3/uL (0.0-0.1) 05/01/23 05:15 Nucleated RBC % (auto) 0 % 05/01/23 05:15 Nucleated RBCs # 0.0 /100WBC 05/01/23 05:15 Sodium 139 mmol/L (136-145) 05/01/23 05:15 Potassium 3.8 mmol/L (3.5-5.1) 05/01/23 05:15 Chloride 103 mmol/L (98-107) 05/01/23 05:15 Carbon Dioxide 28 mmol/L (22-29) 05/01/23 05:15 Anion Gap 11.8 (5-19) 05/01/23 05:15 BUN 21 mg/dL (8-23) 05/01/23 05:15 Creatinine 1.1 mg/dL (0.5-0.9) H 05/01/23 05:15 GFR Calculation Not Reportable 05/01/23 05:15 Glucose 84 mg/dL (65-115) 05/01/23 05:15 POC Glucose 93 mg/dL (70-110) 05/01/23 06:34 Calculated Osmolality 290 mOsm/kg (285-295) 05/01/23 05:15 Calcium 8.7 mg/dL (8.5-10.5) 05/01/23 05:15 Phosphorus 2.4 mg/dL (2.5-4.5) L 04/29/23 03:08 Magnesium 1.8 mg/dL (1.7-2.3) 04/29/23 03:08 Total Bilirubin 0.4 mg/dL (0.15-1.2) 05/01/23 05:15 AST 8 U/L (0-32) 05/01/23 05:15 ALT 6 U/L (0-33) 05/01/23 05:15 Alkaline Phosphatase 87 U/L (35-105) 05/01/23 05:15 Troponin T Gen 5 ng/L 21 ng/L (0-10) H 04/27/23 12:02 C-Reactive Protein 19.7 mg/L (0.0-4.9) H 04/28/23 09:09 Total Protein 5.3 g/dL (6.6-8.7) L 05/01/23 05:15 Albumin 3.3 g/dL (3.5-5.2) L 05/01/23 05:15 Globulin 2.0 g/dL (1.3-4.6) 05/01/23 05:15 Procalcitonin 0.86 ng/mL (0-0.5) H 04/28/23 09:09 Urine Color Yellow (Yellow) 04/27/23 09:21 Urine Appearance Clear (CLEAR) 04/27/23 09:21 Urine pH 5 (5-7) 04/27/23 09:21 Ur Specific Datto 1.015 (1.005-1.030) 04/27/23 09:21 Urine Protein 1+ (Negative) H 04/27/23 09:21 Urine Glucose (UA) 4+ (Normal) H 04/27/23 09:21 Urine Ketones 1+ (Negative) H 04/27/23 09:21 Urine Blood 2+ (Negative) H 04/27/23 09:21 Urine Nitrate Negative (Negative) 04/27/23 09:21 Urine Bilirubin Neg (Negative) 04/27/23 09:21 Urine Urobilinogen Norm mg/dL (Negative) 04/27/23 09:21 Ur Leukocyte Esterase Negative (Negative) 04/27/23 09:21 Urine RBC 0-4 /hpf (0-2) H 04/27/23 09:21 Urine WBC 0-4 /hpf (0-5) H 04/27/23 09:21 Ur Squamous Epith Cells 5-10 /hpf (0-5) H 04/27/23 09:21 Amorphous Sediment Not Reportable 04/27/23 09:21 Urine Bacteria Trace /hpf (NONE) 04/27/23 09:21 Urine Mucus 1+ /hpf 04/27/23 09:21 Serum Ketones Negative (Negative) 04/27/23 08:45 Vitals Last Vital Signs Temp 97.6 F 05/01/23 07:41 Pulse 73 05/01/23 07:41 Resp 16 05/01/23 07:41 BP 116/71 05/01/23 07:41 Pulse Ox 97 05/01/23 09:31 O2 Del Method Room Air 05/01/23 07:41 O2 Flow Rate 1 04/30/23 08:00 Discharge Plan Discharge Patient Disposition: Home Condition: Stable Prescriptions: New levofloxacin 750 mg tablet 750 mg PO DAILY 5 Days Qty: 5 0RF Continued Novolog FlexPen U-100 Insulin 100 unit/mL (3 mL) insulin pen 5 unit SUBCUT TID 30 Days Qty: 4.5 3RF (DME) Dexcom G7 Sieve Grader Tender Misc See Rx Instructions .Route Qty: 1 0RF Rx Instructions: As directed (DME) Dexcom G7 Sensor Device See Rx Instructions .Route Qty: 1 0RF Rx Instructions: As directed sumatriptan succinate 100 mg tablet See Rx Instructions PO .COMPLEX Qty: 14 0RF Rx Instructions: take 1 tab at onset of headache; if no relief, may repeat 1 tab after at least 2 hrs; max = 2 tabs/24 hrs PO (DME) blood-glucose meter Kit See Rx Instructions .ROUTE .MEDSUPPLY Qty: 1 0RF Rx Instructions: TEST 4 TIMES PER DAY (DME) Accu-Chek [place] Plus test strp Strip See Rx Instructions .ROUTE .MEDSUPPLY Qty: 100 4RF Rx Instructions: TEST QID (DME) pen needle, diabetic [1st Tier Unifine Pentips] 29 gauge x 1/2 needle See Rx Instructions .Route Qty: 100 4RF Rx Instructions: As directed (DME) Accu-Chek [place] Plus test strp Strip See Rx Instructions .Route Qty: 100 4RF Rx Instructions: As directed; QID rosuvastatin 40 mg tablet 40 mg PO BEDTIME Qty: 30 2RF (DME) pen needle, diabetic [TechLITE Pen Needle] 32 gauge x / needle See Rx Instructions .ROUTE .COMPLEX Qty: 100 3RF Dose Instruction: USE DIRECTED with insulin Rx Instructions: USE QID with insulin promethazine-DM 6.25-15 mg/5 mL syrup 5 ml PO Q6H PRN (Reason: cough) Qty: 160 0RF hydrocodone-acetaminophen 5-325 mg tablet 1 tab PO Q8H PRN (Reason: pain) 30 Days Qty: 90 0RF hydralazine 25 mg tablet 25 mg PO TID Qty: 90 0RF amlodipine 10 mg tablet 10 mg PO DAILY Qty: 60 0RF metoprolol tartrate 100 mg tablet 100 mg PO Q12H Qty: 60 0RF multivitamin Tablet 1 tab PO QAM nitroglycerin 0.4 mg tablet, sublingual 0.4 mg sublingual Q5M PRN (Reason: chest pain) Qty: 30 0RF Rx Instructions: do not exceed 3 doses per episode aspirin [Adult Low Dose Aspirin] 81 mg tablet,delayed release (DR/EC) 81 mg PO BEDTIME 30 Days Qty: 30 3RF ondansetron HCl 8 mg tablet 8 mg PO Q8H PRN (Reason: Nausea And Vomiting) clopidogrel 75 mg tablet 75 mg PO DAILY omeprazole 20 mg capsule,delayed release(DR/EC) 20 mg PO BID Levemir FlexPen 100 unit/mL (3 mL) insulin pen 60 unit SUBCUT BID Discharge Orders: Discharge Order (Routine); Ordered 05/01/23 Ordered By: Davion Wolff Referrals: Jane Strickland MD [Primary Care Provider] - 05/08/23 9:20 am Patient Instructions: Levofloxacin (By mouth), Pneumonia (GEN), Opioid Safety, Pneumonia Stoplight Discharge Attestations Time Spent in Discharge Care*: less than 30 min Quality Metrics Clinical Quality Measures [ No reported AMI, CVA or VTE this stay] Coding Level of Care Code Acute Code for Chg Fwd Diagnoses Community acquired pneumonia J18.9 Hyperglycemia due to diabetes mellitus E11.65 Nausea and vomiting R11.2 Vomiting type: unspecified Hypertension I10 CKD (chronic kidney disease) N18.9
[2023-05-01] MEDS: doxycycline 100 mg Tablet PO (10:19)
[2023-05-01] MEDS: amlodipine 10 mg Tablet PO (10:20)
[2023-05-01] MEDS: hyDRALAzine 25 mg Tablet PO (10:20)
[2023-05-01] MEDS: pantoprazole DR 40 mg Tablet PO (10:20)
[2023-05-01] MEDS: clopidogrel 75 mg Tablet PO (10:20)
--- NOTE | 2023-05-01 10:21 | PC.SOCIAL ---
Imm update Imm updated with patient at bedside. Copy of page 2 provided. Patient verbalized understanding. copy in chart initialed, dated and timed.
== END 2023-05-01 11:37 | disposition home or self-care (01) | DRG 637 ==
LOC: ER 14:38 → ICU 14:45 → MEDSURG 04-29 16:02
PROVIDERS: Admitting Provider Internal Medicine; Emergency Provider Emergency Medicine; PCP Family Medicine; Visit Provider Internal Medicine
DX: E11.65 Type 2 diabetes mellitus with hyperglycemia (principal); J18.9 Pneumonia, unspecified organism; E87.20 Acidosis, unspecified; E11.22 Type 2 diabetes mellitus with diabetic chronic kidney disease; I12.9 Hypertensive chronic kidney disease with stage 1 through stage 4 chronic kidney disease, or unspecified chronic kidney disease; E11.42 Type 2 diabetes mellitus with diabetic polyneuropathy; E11.43 Type 2 diabetes mellitus with diabetic autonomic (poly)neuropathy; K31.84 Gastroparesis; N18.9 Chronic kidney disease, unspecified; E78.5 Hyperlipidemia, unspecified; K21.9 Gastro-esophageal reflux disease without esophagitis; Z79.4 Long term (current) use of insulin; Z79.891 Long term (current) use of opiate analgesic; Z79.82 Long term (current) use of aspirin; Z79.02 Long term (current) use of antithrombotics/antiplatelets; F41.9 Anxiety disorder, unspecified; F32.A Depression, unspecified; I25.10 Atherosclerotic heart disease of native coronary artery without angina pectoris; Z95.5 Presence of coronary angioplasty implant and graft; M79.7 Fibromyalgia; Z87.440 Personal history of urinary (tract) infections; I25.2 Old myocardial infarction
CPT/HCPCS: 36415; 36416; 51702; 71045; 80048; 80053; 80069; 81001; 82009; 82962; 83735; 84100; 84145; 84484; 85025; 86140; 87040; 93005; 94760; 96365; 96372; 96375; 96376; 99285; 99291; G0378; J0696; J1815; J1885; J1940; J2270; J2405; J2765; J3490; J7030; J7050

== ENCOUNTER → 2023-06-20 13:26 | Outpatient (BNVA) | payer MEDICARE, OTHER, SELFPAY | PROVIDERS: PCP Family Medicine; Visit Provider Family Medicine | DX: R41.0 Disorientation, unspecified (principal); Z87.440 Personal history of urinary (tract) infections; J20.9 Acute bronchitis, unspecified; N39.0 Urinary tract infection, site not specified; J01.00 Acute maxillary sinusitis, unspecified | CPT/HCPCS: 81003 ==

== ENCOUNTER 2023-06-21 19:21 | Inpatient (IN) | payer MEDICARE, OTHER, SELFPAY ==
[2023-06-21 19:24] VITALS: BP 105/64; PULSE 129; RESP 16; TEMP 37.3; O2SAT 97; BMI 25.9
--- NOTE | 2023-06-21 19:29 | ECG_ITS ---
[facility] Test Date: 2023-06-21 Pat Name: Evelyn Farley Department: Room: Gender: Female [employer]: : [phone] Requested By: Carlos Prado Order Number: [id number] Beverley MD: Kvng Demarco M.D. Measurements Intervals Otho Rate: 126 P: 53 VT: 130 QRS: 3 QRSD: 142 T: 128 QT: 349 QTc: 507 Interpretive Statements SINUS TACHYCARDIA WITH OCCASIONAL SUPRAVENTRICULAR PREMATURE COMPLEXES Left bundle branch block Compared to ECG 04/27/2023 10:05:04 Left bundle branch block still present Electronically Signed On 06-22-2023 13:57:35 CDT by Kvng Demarco M.D. [email or web address]
[2023-06-21 20:07] VITALS: PULSE 126; RESP 23; O2SAT 96
[2023-06-21 20:13] LABS: Basophils % 0.2 %; Eosinophils % 0.1 %; Hematocrit 28.6 % (36-47); Lymphocytes # 1.5 10^3/uL (0.8-4.8); Lymphocytes % 12.8 %; Mean Corpuscular HGB Conc 31.8 g/dL (30-55); Mean Corpuscular Hemoglobin 26.7 pg (27-33); Mean Corpuscular Volume 83.9 fl (85-98); Monocytes # 0.9 10^3/uL (0.2-0.9); Monocytes % 7.4 %; Neutrophils # 9.49 10^3/uL (1.8-7.7); Neutrophils % 78.7 %; Nucleated Red Blood Cells % 0 %; Platelet Count 323 10^3/cmm (157-399); Red Blood Count 3.41 10^6/uL (3.85-5.65); Red Cell Distribution Width 14.2 % (12.1-15.1); White Blood Count 12.05 10^3/uL (3.29-11.43)
[2023-06-21 20:28] LABS: Alanine Aminotransferase 19 U/L (0-33); Albumin Level 3.7 g/dL (3.5-5.2); Alkaline Phosphatase 149 U/L (35-105); Blood Urea Nitrogen 22 mg/dL (8-23); Calcium 8.3 mg/dL (8.5-10.5); Carbon Dioxide 21 mmol/L (22-29); Chloride 92 mmol/L (98-107); Globulin 2.4 g/dL (1.3-4.6); Glucose 312 mg/dL (65-115); Osmolality Calculated 289 mOsm/kg (285-295); Sodium 132 mmol/L (136-145); Total Bilirubin 0.8 mg/dL (0.15-1.2); Total Protein 6.1 g/dL (6.6-8.7)
[2023-06-21 20:32] LABS: Aspartate Amino Transferase 17 U/L (0-32); Ketone (Acetest) Serum Positive (Negative)
[2023-06-21 20:33] LABS: Troponin T (5th) Once 20 ng/L (0-10)
[2023-06-21 20:34] LABS: Lactic Sepsis W/Reflex 1.9 mmol/L (0.5-2.2)
[2023-06-21 20:34] LABS: Glucose Point of Care 338 mg/dL (70-110)
--- NOTE | 2023-06-21 20:42 | XRR_ITS ---
PROCEDURE INFORMATION: Exam: XR Chest Exam date and time: 06/21/2023 9:05 PM Age: 77 years old Clinical indication: Shortness of breath; Patient HX: C/O SOB TECHNIQUE: Imaging protocol: Radiologic exam of the chest. Views: 1 view. COMPARISON: CR (CHEST, ) 04/28/2023 6:45 AM FINDINGS: Lungs: Moderate lung expansion. Calcified right infrahilar/right basilar opacities with partial silhouetting the right cardiac border. Ill-defined perihilar opacities. Mild thickening right minor fissure. Pleural spaces: Small right pleural effusion. No pneumothorax. Heart/Mediastinum: Stable cardiomediastinal silhouette. Bones/joints: No acute osseous abnormality. XR/XR chest 1V portable [id number] IMPRESSION: 1. Increased confluent right basal opacities with partial silhouetting of the right cardiac border concerning for combination of right middle lobe and right lower lobe consolidation/pneumonia. Given persistence of consolidation in this region compared to 04/28/2023, recommend CT chest for characterization of the lung parenchyma. 2. Mild pulmonary edema with small right pleural effusion.
[2023-06-21 20:43] LABS: NT Pro B Type Natriuretic Pept 9030 pg/mL (0-450)
[2023-06-21 20:49] LABS: ABG PCO2 32.4 mmHg (35-45); ABG PH Result 7.49 (7.35-7.45); Arterial Blood Gas Hematocrit 28.2 % (37-47); Base Excess ABG 1.5 mmol/L (-2.0-2.0); Blood Gas Sample Type Arterial; HCO3 ABG 24.7 mmol/L (22-26); PO2 ABG 66.1 mmHg (80.0-100.0)
[2023-06-21 20:50] LABS: Blood Gas Sample Site Brachial, left; Oxygen Device NC
[2023-06-21 20:51] LABS: SARS Covid-2 Antigen negative (Negative)
[2023-06-21] MEDS: sodium chloride 0.9% 1,000 ML 999 ML IV (20:51)
[2023-06-21 21:22] LABS: Blood Urine 3+ (Negative); Glucose Urine UA 2+ (Normal); Ketones Urine 2+ (Negative); Nitrate Urine Positive (Negative); Protein Urine 2+ (Negative); Specific Gravity, Urine 1.015 (1.005-1.030); Urine Appearance SL Hazy (CLEAR); Urine Color Dark Yellow (Yellow); pH Urine 5 (5-7)
[2023-06-21 21:23] LABS: Add Urine Microscopic? YES; Bacteria Urine 1+ /hpf; Bilirubin Urine Neg (Negative); Fine Granular Casts Urine 0-4 /lpf; Leukocyte Esterase Urine Negative (Negative); RBC Urine 0-4 /hpf (0-2); Squamous Epithelial Cell Urine 0-4 /hpf (0-5); Urobilinogen Urine 1 mg/dL (Negative); WBC Urine 0-4 /hpf (0-5)
[2023-06-21 21:24] LABS: Add Urine Culture? Yes
--- NOTE | 2023-06-21 21:46 | ED_ITS ---
HPI - SOB/Dyspnea General: Chief Complaint: Shortness of Breath/Dyspnea Stated Complaint: SOB/N/V Time Seen by Provider: 06/21/23 19:27 Source: patient and family History of Present Illness: HPI Narrative: 77-year-old female who says she has been sick for several days. She has had a cough, shortness of breath, and what sounds like pleuritic chest pain. She reports fever at home as well. Very little sputum production. She does not usually use oxygen, and is currently on 4 L. MD elicited complaint: shortness of breath, cough and chest pain Pertinent past history: other Associated symptoms: Reports chest pain, fever(s), nausea, palpitations and vomiting; Deny abdominal pain Related Data: Home oxygen amount: none Review of Systems 2 Const: Reports: fever(s), chills and change in appetite ENMT: Denies: throat pain Card: Reports: chest pain and palpitations Resp: Reports: dyspnea and non-productive cough GI: Reports: nausea and vomiting; Denies: abdominal pain or diarrhea PFSH ED PFSH: Medical History (Updated 06/22/23 @ 05:18 by Carlos Haas DO) Abdominal pain Abnormal blood sugar Abnormal TSH Abscess or cellulitis of foot Acidosis, lactic Acute maxillary sinusitis AMY (acute kidney injury) Anxiety and depression ASHD (arteriosclerotic heart disease) Cataracts, bilateral Chest pain CKD (chronic kidney disease) Colitis Colitis Colitis Community acquired pneumonia Congestive heart failure Constipation Continuous severe abdominal pain Dehydration Diabetes Diabetic ketoacidosis Diabetic neuropathy Diabetic peripheral neuropathy Diverticulitis DKA (diabetic ketoacidosis) Fibromyalgia Gastroparesis Glucose measurement between 50 mg/dl to 400mg/dl Gram-positive bacteremia History of recurrent UTI (urinary tract infection) Hospital discharge follow-up Hyperglycemia Hyperglycemia due to diabetes mellitus Hyperlipidemia Hypertension Hypertension Hypokalemia Hypokalemia Hypophosphatemia Insomnia Intractable abdominal pain Intractable vomiting with nausea Left renal stone Left ureteral calculus Leukocytosis Leukocytosis Migraine Nausea and vomiting Nausea and vomiting Nausea, vomiting, and diarrhea Neuropathic pain NSTEMI (non-ST elevated myocardial infarction) Odynophagia Pyelonephritis Pyuria Sepsis Shingles Ureterolithiasis Urolithiasis UTI (urinary tract infection) Yeast vaginitis Surgical History H/O angioplasty H/O carpal tunnel repair H/O: hysterectomy History of cholecystectomy S/P ureteral stent placement Family History Mother , at age 65 Heart attack Father , at age 63 Heart attack Other Diabetes Hypertension Social History Smoking and tobacco status: never smoked Second hand smoke exposure: No Alcohol intake: never Substance/Drug Use: never Adopted: No Caregiver/support person: Yes (spouse) Lives independently: Yes Household members: spouse Marital status: service: No Current occupational status: retired Current gender identity: Female Special vandana needs: No Agree to transfusion: Yes Physical Exam Const: COMMON NORMALS: no acute distress GENERAL APPEARANCE: cooperative, ill appearing and frail appearing HENMT: COMMON NORMALS: normocephalic, atraumatic and Normal external nose present HEAD & SCALP: normocephalic and atraumatic FACE & SINUS: normal facial exam and face symmetric NOSE: Normal external nose present Eye: COMMON NORMALS: Equal, round and reactive pupils present and EOMs intact bilaterally PUPIL: Yes Equal, round and reactive pupils present Neck/C-Spine: GENERAL: Yes trachea midline Chest: CHEST: Yes Symmetrical chest wall rise Resp: COMMON NORMALS: clear to auscultation bilaterally EFFORT & INSPECTION: Yes tachypneic and No respiratory distress AUSCULTATION: clear to auscultation bilaterally and diminished lung sounds on the right Cardio: COMMON NORMALS: regular rate and regular rhythm RATE: regular rate RHYTHM: regular rhythm GI: COMMON NORMALS: Normal to inspection, nondistended, normoactive bowel sounds present Extremity: COMMON NORMALS: no pedal edema Neuro: MARCY COMA SCALE: document GCS findings Marcy coma scale eye opening: Spontaneous [place] coma scale verbal response: Orientated Mar[place] coma scale motor response: Obey commands [place] coma scale total score: 15 SENSORY EXAM: Yes extremities (intact) Psych: COMMON NORMALS: speech normal SPEECH: Yes normal speech Skin: COMMON NORMALS: no rashes or lesions noted GENERAL SKIN EXAM: no rashes or lesions noted Course Vital Signs: Vital signs: Vital Signs Temperature 98.7 F 06/22/23 03:35 Pulse Rate 103 H 06/22/23 03:35 Respiratory Rate 16 06/22/23 03:35 Blood Pressure 161/60 06/22/23 03:35 Pulse Oximetry 96 06/22/23 03:35 Oxygen Delivery Me thod Nasal Cannula 06/22/23 03:35 Oxygen Flow Rate 4 06/22/23 03:35 MDM - SOB/Dyspnea Medical Decision Making This patient presents tachycardic, short of breath, on oxygen. Blood pressure is normal. Heart rate is 1 10-1 20. Improved to some degree after 1 L IV fluid bolus. Her potassium is 3.0. She has had problems with high blood sugar at home, blood sugar is 312 on serum testing. Serum ketones are positive, but the patient is not acidotic. Her BNP is elevated at 9000, so extra fluid was not given due to fear of fluid overload. She is loaded with vancomycin and Zosyn. She has a right lower lobe infiltrate on chest x-ray.There is a small right p leural effusion as well. She will be admitted for hypoxic respiratory failure with pneumonia, hypokalemia, and hyperglycemia. She is getting 40 mill equivalents of IV potassium for potassium of 3.0, but since IV access is limited, will attempt oral replacement. Lab Data 06/21/23 20:03 06/21/23 20:03 Labs/Radiology: Radiology Impressions Chest X-Ray 06/21/23 20:42 IMPRESSION: 1. Increased confluent right basal opacities with partial silhouetting of the right cardiac border concerning for combination of right middle lobe and right lower lobe consolidation/pneumonia. Given persistence of consolidation in this region compared to 04/28/2023, recommend CT chest for characterization of the lung parenchyma. 2. Mild pulmonary edema with small right pleural effusion. ADDENDUM: 06/21/23 [id number] THIS REPORT CONTAINS FINDINGS THAT MAY BE CRITICAL TO PATIENT CARE. The findings were verbally communicated via telephone conference with CARLOS Smith at 10:17 PM CDT on 06/21/2023. The findings were acknowledged and understood. Laboratory Results WBC 12.05 10^3/uL (3.29-11.43) H 06/21/23 20:03 RBC 3.41 10^6/uL (3.85-5.65) L 06/21/23 20:03 Hgb 9.10 g/dL (11.27-16.99) L 06/21/23 20:03 Hct 28.6 % (36-47) L 06/21/23 20:03 MCV 83.9 fl (85-98) L 06/21/23 20:03 MCH 26.7 pg (27-33) L 06/21/23 20:03 MCHC 31.8 g/dL (30-55) 06/21/23 20:03 RDW 14.2 % (12.1-15.1) 06/21/23 20:03 Plt Count 323 10^3/cmm (157-399) 06/21/23 20:03 MPV 11.0 fL (7.4-10.4) H 06/21/23 20:03 Neut % (Auto) 78.7 % 06/21/23 20:03 Lymph % (Auto) 12.8 % 06/21/23 20:03 [place] % (Auto) 7.4 % 06/21/23 20:03 Eos % (Auto) 0.1 % 06/21/23 20:03 Baso % (Auto) 0.2 % 06/21/23 20:03 Neut # (Auto) 9.49 10^3/uL (1.8-7.7) H 06/21/23 20:03 Lymph # (Auto) 1.5 10^3/uL (0.8-4.8) 06/21/23 20:03 [place] # (Auto) 0.9 10^3/uL (0.2-0.9) 06/21/23 20:03 Eos # (Auto) 0.0 10^3/uL (0.0-0.8) 06/21/23 20:03 Baso # (Auto) 0.0 10^3/uL (0.0-0.1) 06/21/23 20:03 Nucleated RBC % (auto) 0 % 06/21/23 20:03 Nucleated RBCs # 0.0 /100WBC 06/21/23 20:03 Specimen Type Arterial 06/21/23 20:40 Sample Site Brachial, left 06/21/23 20:40 ABG pH 7.49 (7.35-7.45) H 06/21/23 20:40 ABG pCO2 32.4 mmHg (35-45) L 06/21/23 20:40 ABG pO2 66.1 mmHg (80.0-100.0) L 06/21/23 20:40 ABG HCO3 24.7 mmol/L (22-26) 06/21/23 20:40 ABG Base Excess 1.5 mmol/L (-2.0-2.0) 06/21/23 20:40 Antonio Test N/a 06/21/23 20:40 Hematocrit 28.2 % (37-47) L 06/21/23 20:40 O2 Delivery Device Nc 06/21/23 20:40 O2 Liters/Min 4.0 % 06/21/23 20:40 FiO2 36.0 % 06/21/23 20:40 Forestry And Wildlife Manager ID [email or web address] 06/21/23 20:40 Sodium 132 mmol/L (136-145) L 06/21/23 20:03 Potassium 3.0 mmol/L (3.5-5.1) L 06/21/23 20:03 Chloride 92 mmol/L (98-107) L 06/21/23 20:03 Carbon Dioxide 21 mmol/L (22-29) L 06/21/23 20:03 Anion Gap 22.0 (5-19) H 06/21/23 20:03 BUN 22 mg/dL (8-23) 06/21/23 20:03 Creatinine 1.2 mg/dL (0.5-0.9) H 06/21/23 20:03 GFR Calculation Not Reportable 06/21/23 20:03 Glucose 312 mg/dL (65-115) H 06/21/23 20:03 POC Glucose 338 mg/dL (70-110) H 06/21/23 20:30 Calculated Osmolality 289 mOsm/kg (285-295) 06/21/23 20:03 Lactic Acid 1.9 mmol/L (0.5-2.2) 06/21/23 20:03 Calcium 8.3 mg/dL (8.5-10.5) L 06/21/23 20:03 Total Bilirubin 0.8 mg/dL (0.15-1.2) 06/21/23 20:03 AST 17 U/L (0-32) 06/21/23 20:03 ALT 19 U/L (0-33) 06/21/23 20:03 Alkaline Phosphatase 149 U/L (35-105) H 06/21/23 20:03 Troponin T Gen 5 ng/L 20 ng/L (0-10) H 06/21/23 20:03 Troponin T 120 Minute 24.14 ng/L (0-10) H 06/21/23 22:01 Delta Troponin T 4.14 ABS# (0-10) 06/21/23 22:01 NT-Pro-B Natriuret Pep 9030 pg/mL (0-450) H 06/21/23 20:03 Total Protein 6.1 g/dL (6.6-8.7) L 06/21/23 20:03 Albumin 3.7 g/dL (3.5-5.2) 06/21/23 20:03 Globulin 2.4 g/dL (1.3-4.6) 06/21/23 20:03 Urine Color Dark yellow (Yellow) 06/21/23 21:04 Urine Appearance Sl hazy (CLEAR) A 06/21/23 21:04 Urine pH 5 (5-7) 06/21/23 21:04 Ur Specific [place] 1.015 (1.005-1.030) 06/21/23 21:04 Urine Protein 2+ (Negative) H 06/21/23 21:04 Urine Glucose (UA) 2+ (Normal) H 06/21/23 21:04 Urine Ketones 2+ (Negative) H 06/21/23 21:04 Urine Blood 3+ (Negative) H 06/21/23 21:04 Urine Nitrate Positive (Negative) H 06/21/23 21:04 Urine Bilirubin Neg (Negative) 06/21/23 21:04 Urine Urobilinogen 1 mg/dL (Negative) H 06/21/23 21:04 Ur Leukocyte Esterase Negative (Negative) 06/21/23 21:04 Urine RBC 0-4 /hpf (0-2) H 06/21/23 21:04 Urine WBC 0-4 /hpf (0-5) H 06/21/23 21:04 Ur Squamous Epith Cells 0-4 /hpf (0-5) H 06/21/23 21:04 Amorphous Sediment Not Reportable 06/21/23 21:04 Urine Bacteria 1+ /hpf (NONE) H 06/21/23 21:04 Fine Granular Casts 0-4 /lpf H 06/21/23 21:04 Coarse Granular Casts 5-10 /lpf H 06/21/23 21:04 Serum Ketones Positive (Negative) H 06/21/23 20:03 SARS-CoV-2 Ag (Rapid) negative (Negative) 06/21/23 20:22 Discharge Plan Discharge Patient Disposition: Admitted As Inpatient Admit Provider: Denia Bearden Clinical Impression: Pneumonia, Acute respiratory failure with hypoxia Condition: Stable Coding Level of Care Code ED Studio Control Operator for Melissa King
[2023-06-21 22:00] VITALS: BP 141/57; PULSE 113; RESP 17; O2SAT 96
[2023-06-21] MEDS: piperacillin-tazobactam 4.5 GM in sodium chloride 0.9% (plus) 50 ML IV (22:00)
[2023-06-21] MEDS: potassium chloride oral liq 20 mEq/15 mL UDC 40 MEQ PO (22:01)
[2023-06-21 22:27] LABS: Troponin 5 2HR 24.14 ng/L (0-10)
[2023-06-21 22:28] LABS: Troponin 5 2HR Delta 4.14 ABS# (0-10)
[2023-06-21] MEDS: ondansetron 2 mg/ML SDV 2 mL 4 MG IVP (22:42)
[2023-06-21 22:43] VITALS: RESP 16; O2SAT 97
[2023-06-21] MEDS: morphine 4 mg/mL SDV 1 mL 2 MG IVP (22:43)
--- NOTE | 2023-06-21 22:48 | ECG_ITS ---
[facility] Test Date: 2023-06-21 Pat Name: Evelyn Farley Department: Room: Gender: Female Director Data Management: : 1945 Requested By: Carlos Prado Order Number: [id number] Beverley MD: Kvng Demarco M.D. Measurements Intervals [place] Rate: 115 P: 75 AL: 142 QRS: 4 QRSD: 136 T: 101 QT: 370 QTc: 513 Interpretive Statements SINUS TACHYCARDIA Left bundle branch block Compared to ECG 06/21/2023 19:29:38 Left bundle branch block still present Electronically Signed On 06-22-2023 14:00:02 CDT by Kvng Demarco M.D. [id number]
[2023-06-21] MEDS: vancomycin 1,000 MG in sodium chloride 0.9% 250 ML 250 MG IV (23:02)
--- NOTE | 2023-06-21 23:46 | P.HP_ITS ---
Providers/Chief Complaint Admitting Physician: Denia Bearden MD Primary Care Provider: Jane Strickland MD Chief Complaint: SOB/N/V History of Present Illness Evelyn Farley is a 77 year old female with history of diabetes hypertension hyperlipidemia congestive heart failure presented with complaint of fever cough right-sided chest pain since 2 to 3 days. She was recently started on oral antibiotics for UTI as an outpatient. She further reported to have vomiting and nausea. She has a history of hospitalization 1 month ago for pneumonia. In the ER she was found to have a temperature of 101 ?F and was hypoxic, mildly elevated troponins ,blood sugar of 338 with positive blood and urine ketones BNP of 9000 lactic acid 1.9 and UA strongly consistent with UTI. Review of Systems Narrative: As per HPI Medications/Allergies Home Medications Medication Instructions Recorded Confirmed Last Taken Type blood-glucose meter #1 ea 11/19/19 06/20/23 Unknown Rx multivitamin 1 tab PO QAM 05/23/22 06/20/23 11/21/22 History aspirin 81 mg tablet,delayed 81 mg PO BEDTIME 30 days #30 tabs 09/11/22 06/20/23 11/21/22 Rx release (Adult Low Dose Aspirin) nitroglycerin 0.4 mg sublingual 0.4 mg sublingual Q5M PRN chest 09/11/22 06/20/23 Unknown Rx tablet pain #30 tabs blood sugar diagnostic (Accu-Chek #100 ea 10/01/22 06/20/23 Unknown Rx [place] Plus test strips) pen needle, diabetic 29 gauge x #100 ea 10/01/22 06/20/23 Unknown Rx 1/2 (1st Tier Unifine Pentips) blood sugar diagnostic (Accu-Chek #100 ea 11/28/22 06/20/23 Unknown Rx [place] Plus test strips) blood-glucose meter,continuous #1 ea 12/13/22 06/20/23 Unknown Rx (Dexcom G7 Wooden Tank Erector) blood-glucose sensor (Dexcom G7 #1 ea 12/13/22 06/20/23 Unknown Rx Sensor device) sumatriptan succinate 100 mg tablet See Rx Instructions PO .COMPLEX 03/20/23 06/20/23 Unknown Rx #14 tabs promethazine-DM 6.25 mg-15 mg/5 mL 5 ml PO Q6H PRN cough #160 mL 03/29/23 06/20/23 Unknown Rx oral syrup omeprazole 20 mg capsule,delayed 20 mg PO BID 04/27/23 06/20/23 Unknown History release clopidogrel 75 mg tablet See Rx Instructions .Route 05/02/23 06/20/23 Unknown Rx .COMPLEX #30 tabs metoprolol tartrate 100 mg tablet See Rx Instructions .Route 05/02/23 06/20/23 Unknown Rx .COMPLEX #180 tabs furosemide 20 mg tablet (Lasix) 20 mg PO QAM #7 tabs 05/08/23 06/20/23 Unknown Rx amlodipine 10 mg tablet 10 mg PO DAILY #60 tabs 05/15/23 06/20/23 Unknown Rx insulin aspart U-100 100 unit/mL See Rx Instructions .Route 05/22/23 06/20/23 Unknown Rx (3 mL) subcutaneous pen (Novolog .COMPLEX #15 mL FlexPen U-100 Insulin aspart) ondansetron HCl 8 mg tablet See Rx Instructions .Route 05/22/23 06/20/23 Unknown Rx .COMPLEX #20 tabs rosuvastatin 40 mg tablet See Rx Instructions .Route 05/22/23 06/20/23 Unknown Rx .COMPLEX #30 tabs hydrocodone 5 mg-acetaminophen 325 1 tab PO Q8H PRN pain 30 days #90 05/28/23 06/20/23 Unknown Rx mg tablet tabs ciprofloxacin HCl 500 mg tablet 500 mg PO BID #14 tabs 06/12/23 06/20/23 Unknown Rx hydralazine 25 mg tablet See Rx Instructions .Route 06/12/23 06/20/23 Unknown Rx .COMPLEX #90 tabs pen needle, diabetic 32 gauge x #100 ea 06/12/23 06/20/23 Unknown Rx 5/32 (TechLITE Pen Needle) insulin detemir U-100 100 unit/mL See Rx Instructions .Route 06/13/23 06/20/23 Unknown Rx (3 mL) subcutaneous pen (Levemir .COMPLEX #40 mL FlexPen) albuterol sulfate 90 mcg/actuation 2 puff inhalation Q6H PRN 06/20/23 06/20/23 Unknown Rx aerosol inhaler shortness of breath or wheezing #8.5 grams levofloxacin 750 mg tablet 750 mg PO DAILY 7 days #7 tabs 06/20/23 06/20/23 Unknown Rx phenazopyridine 100 mg tablet 100 mg PO TID #20 tabs 06/20/23 06/20/23 Unknown Rx (Pyridium) promethazine-DM 6.25 mg-15 mg/5 mL 5 ml PO Q6H PRN cough #160 mL 06/20/23 06/20/23 Unknown Rx oral syrup Allergies Allergy/AdvReac Type Severity Reaction Status Date / Time gabapentin Allergy hallucinati Verified 06/20/23 13:10 ons Iodinated Contrast Media Allergy Unknown Verified 06/20/23 13:10 metronidazole Allergy ADR-Confusi Verified 06/20/23 13:10 on nifedipine [From Procardia] Allergy Unknown Verified 06/20/23 13:10 prochlorperazine Allergy Unknown Verified 06/20/23 13:10 [From Compazine] unknown antibiotic Allergy see comment Uncoded 05/08/23 08:16 PFSH Acute PFSH: Medical History (Updated 06/22/23 @ 00:06 by Denia Bearden MD) Abdominal pain Abnormal blood sugar Abnormal TSH Abscess or cellulitis of foot Acidosis, lactic Acute maxillary sinusitis AMY (acute kidney injury) Anxiety and depression ASHD (arteriosclerotic heart disease) Cataracts, bilateral Chest pain CKD (chronic kidney disease) Colitis Colitis Colitis Community acquired pneumonia Congestive heart failure Constipation Continuous severe abdominal pain Dehydration Diabetes Diabetic ketoacidosis Diabetic neuropathy Diabetic peripheral neuropathy Diverticulitis DKA (diabetic ketoacidosis) Fibromyalgia Gastroparesis Glucose measurement between 50 mg/dl to 400mg/dl Gram-positive bacteremia History of recurrent UTI (urinary tract infection) Hospital discharge follow-up Hyperglycemia Hyperglycemia due to diabetes mellitus Hyperlipidemia Hypertension Hypertension Hypokalemia Hypokalemia Hypophosphatemia Insomnia Intractable abdominal pain Intractable vomiting with nausea Left renal stone Left ureteral calculus Leukocytosis Leukocytosis Migraine Nausea and vomiting Nausea and vomiting Nausea, vomiting, and diarrhea Neuropathic pain NSTEMI (non-ST elevated myocardial infarction) Odynophagia Pyelonephritis Pyuria Sepsis Shingles Ureterolithiasis Urolithiasis UTI (urinary tract infection) Yeast vaginitis Surgical History H/O angioplasty H/O carpal tunnel repair H/O: hysterectomy History of cholecystectomy S/P ureteral stent placement Family History Mother , at age 65 Heart attack Father , at age 63 Heart attack Other Diabetes Hypertension Social History Smoking and tobacco status: never smoked Second hand smoke exposure: No Alcohol intake: never Substance/Drug Use: never Adopted: No Caregiver/support person: Yes (spouse) Lives independently: Yes Household members: spouse Marital status: service: No Current occupational status: retired Current gender identity: Female Special vandana needs: No Agree to transfusion: Yes Vitals/I&O/Wt Last Vital Signs Temp 99.1 F 06/21/23 19:24 Pulse 113 H 06/21/23 22:00 Resp 16 06/21/23 22:43 BP 141/57 06/21/23 22:00 Pulse Ox 97 06/21/23 22:43 O2 Del Method Nasal Cannula 06/21/23 19:24 O2 Flow Rate 4 06/21/23 19:24 06/21/23 06/21/23 06/22/23 14:59 22:59 06:59 Intake Total 1050 / 1050 Balance 1050 / 1050 Weight last 48 hrs Weight 64.41 kg Physical Exam Narrative: She is alert awake oriented x3 in moderate respiratory distress Chest decreased air entry and crackles and faint wheezing anemia Occasional rhonchi bilaterally no wheezing Cardiovascular n normal heart sounds Abdomen soft nontender nondistended normal bowel sounds Extremities 1+ bilateral edema present, Data 06/21/23 20:03 06/21/23 20:03 Micro: Microbiology 06/21/23 20:28 Blood Culture - Preliminary Blood SPECIMEN COLLECTED 06/21/23 20:03 Blood Culture - Preliminary Blood SPECIMEN COLLECTED CXR: Radiologist's impression: IMPRESSION: 1. ? Increased confluent right basal opacities with partial silhouetting of the right cardiac border concerning for combination of right middle lobe and right lower lobe consolidation/pneumonia. Given persistence of consolidation in this region compared to 04/28/2023, recommend CT chest for characterization of the lung parenchyma. 2. ? Mild pulmonary edema with small right pleural effusion. ? EKG 1: EKG computer-generated impression: SINUS TACHYCARDIA WITH OCCASIONAL SUPRAVENTRICULAR PREMATURE COMPLEXES INTRAVENTRICULAR CONDUCTION DELAY?? A&P Assessment and plan (1) Right lower lobe pneumonia: (2) Hyponatremia: Plan 77-year-old female presented with complaint of fever cough chest pain vomiting and found to have right lower lobe pneumonia hypokalemia hyponatremia UTI and hyperglycemia with positive blood and urine ketones. In view of recent hospitalization 1 month ago for pneumonia and current UTI Will continue IV vancomycin 1 g every 12 hours IV Zosyn 3.375 mg every 8 hours IV fluids normal saline at 60 mL/h DuoNebs every 8 hours Continue supplemental oxygen to keep saturation more than 90% Will replace potassium p.o. Continue home medications Correction scale insulin Recheck labs in a.m. Diabetic diet She is full code for now PUD prophylaxis with IV Pepcid 20 mg every 12h DVT prophylaxis with subcu heparin 30 mg daily. Attestations Medical Necessity Statement*: She needs more than 2 days of continued hospitalization for IV antibiotics and fluids for pneumonia hyperglycemia and UTI Time Spent in Patient Care: 35 minutes Coding Level of Care Code Critical Care >/= 30 minutes Diagnoses Right lower lobe pneumonia J18.9 Hyponatremia E87.1 Time Spent (min) 30
[2023-06-22] VITALS (9 sets, daily range): BP systolic 104–161; BP diastolic 56–71; PULSE 74–106; RESP 16–18; TEMP 36.6–37.3; O2SAT 94–98
--- NOTE | 2023-06-22 00:25 | PC.PHAR ---
VHT6CLRS VANCOMYCIN: 1st dose in er 06/21 2300. Dosing to continue conservatively at 1,000 at q36h due to patient parameters. Will monitor renal function and adjust frequency if it improves and estimated troughs can benefit patient. 1st level before 06/24 @2200
[2023-06-22] MEDS: sodium chloride 0.9% 1,000 ML 60 ML IV (00:37)
[2023-06-22] MEDS: famotidine 20 mg/2 mL INJ IVP ×2 (00:37→11:54)
[2023-06-22] MEDS: enoxaparin 30 mg/0.3 mL Syringe SUBCUT ×2 (00:38→23:32)
[2023-06-22] MEDS: potassium chloride ER 20 mEq Tablet 40 MEQ PO ×2 (00:38→06:10)
--- NOTE | 2023-06-22 02:15 | ECG_ITS ---
[facility] Test Date: 2023-06-22 Pat Name: Evelyn Farley Department: Room: 253 Gender: Female Engineering Designer: : 1945 Requested By: Carlos Prado Order Number: [id number] Beverley MD: Kvng Demarco M.D. Measurements Intervals [place] Rate: 107 P: -8 FL: 153 QRS: 72 QRSD: 130 T: -43 QT: 397 QTc: 531 Interpretive Statements SINUS TACHYCARDIA WITH OCCASIONAL SUPRAVENTRICULAR PREMATURE COMPLEXES Left bundle branch block Compared to ECG 06/21/2023 22:48:36 Left bundle branch block still present Electronically Signed On 06-22-2023 14:02:54 CDT by Kvng Demarco M.D. [id number]
[2023-06-22 03:02] LABS: Troponin 5 6HR 19.45 ng/L (0-10)
[2023-06-22 03:05] LABS: Troponin 5 6HR Delta -0.55 ng/L (0-12)
[2023-06-22 03:53] LABS: Charge for UA Resulting for Rev
[2023-06-22 04:02] LABS: Bilirubin Urine Neg (Negative); Blood Urine 3+ (Negative); Glucose Urine UA 2+ (Normal); Ketones Urine 1+ (Negative); Leukocyte Esterase Urine Negative (Negative); Nitrate Urine Negative (Negative); Protein Urine 1+ (Negative); Specific Gravity, Urine 1.005 (1.005-1.030); Urine Appearance Clear (CLEAR); Urine Color Yellow (Yellow); Urobilinogen Urine Neg (Negative); pH Urine 8 (5-7)
[2023-06-22 04:03] LABS: Add Urine Microscopic? YES; Sulfosalicylic Acid Urine Positive (Negative)
[2023-06-22 05:56] LABS: Basophils % 0.2 %; Eosinophils % 0.1 %; Hematocrit 30.8 % (36-47); Lymphocytes # 1.4 10^3/uL (0.8-4.8); Lymphocytes % 14.8 %; Mean Corpuscular HGB Conc 29.5 g/dL (30-55); Mean Corpuscular Volume 91.4 fl (85-98); Mean Platelet Volume 10.4 fL (7.4-10.4); Monocytes # 0.6 10^3/uL (0.2-0.9); Monocytes % 6.3 %; Neutrophils # 7.08 10^3/uL (1.8-7.7); Neutrophils % 77.7 %; Nucleated Red Blood Cells % 0 %; Platelet Count 277 10^3/cmm (157-399); Red Blood Count 3.37 10^6/uL (3.85-5.65); Red Cell Distribution Width 14.5 % (12.1-15.1); White Blood Count 9.11 10^3/uL (3.29-11.43)
[2023-06-22] MEDS: piperacillin-tazobactam 3.375 GM in sodium chloride 0.9% (plus) 50 ML IV ×2 (06:06→13:23)
[2023-06-22] MEDS: FUROsemide 20 mg Tablet PO (06:10)
[2023-06-22] MEDS: HYDROcodone-acetaminophen 5-325 mg Tablet 1 TAB PO ×3 (06:13→23:31)
[2023-06-22 06:14] LABS: Alanine Aminotransferase 16 U/L (0-33); Albumin Level 3.4 g/dL (3.5-5.2); Alkaline Phosphatase 129 U/L (35-105); Blood Urea Nitrogen 15 mg/dL (8-23); Calcium 7.9 mg/dL (8.5-10.5); Carbon Dioxide 22 mmol/L (22-29); Chloride 101 mmol/L (98-107); Globulin 2.6 g/dL (1.3-4.6); Glucose 162 mg/dL (65-115); Magnesium 2.1 mg/dL (1.7-2.3); Osmolality Calculated 286 mOsm/kg (285-295); Sodium 136 mmol/L (136-145); Total Bilirubin 0.7 mg/dL (0.15-1.2)
[2023-06-22 06:15] LABS: Anion Gap 16.4 (5-19); Aspartate Amino Transferase 16 U/L (0-32); Potassium 3.4 mmol/L (3.5-5.1)
[2023-06-22 06:26] LABS: NT Pro B Type Natriuretic Pept 6502 pg/mL (0-450)
[2023-06-22 07:10] LABS: Glucose Point of Care 146 mg/dL (70-110)
[2023-06-22] MEDS: atorvastatin 40 mg Tablet 80 MG PO (08:57)
[2023-06-22] MEDS: amlodipine 10 mg Tablet PO (08:57)
[2023-06-22] MEDS: hyDRALAzine 25 mg Tablet PO ×3 (08:58→21:58)
[2023-06-22] MEDS: metoprolol tartrate 50 mg Tablet 100 MG PO ×2 (08:58→21:58)
[2023-06-22] MEDS: insulin glargine 100 units/1 mL 80 UNIT SUBCUT (08:58)
[2023-06-22] MEDS: clopidogrel 75 mg Tablet PO (08:58)
[2023-06-22] MEDS: phenazopyridine 100 mg Tablet PO ×3 (08:58→21:59)
[2023-06-22] MEDS: insulin lispro 100 unit/1 mL SUBCUT ×2 (08:59→17:18)
[2023-06-22 11:33] LABS: Glucose Point of Care 105 mg/dL (70-110)
--- NOTE | 2023-06-22 13:01 | PM.PN ---
Subjective Subjective: Patient is doing well currently on 3 L Awake and alert Family at the bedside She is pleasant and cooperative Vitals/I&O/Wt Last Vital Signs Temp 98.2 F 06/22/23 11:20 Pulse 80 06/22/23 11:20 Resp 18 06/22/23 11:20 BP 120/58 06/22/23 11:20 Pulse Ox 94 06/22/23 11:20 O2 Del Method Nasal Cannula 06/22/23 11:20 O2 Flow Rate 4 06/22/23 08:00 06/21/23 06/22/23 06/22/23 22:59 06:59 14:59 Intake Total 1645.917 / 1645.917 240 / 240 Balance 1645.917 / 1645.917 240 / 240 Weight last 48 hrs Weight 64.41 kg Physical Exam Narrative: Family at the bedside Patient is laying supine Lower extremity no edema Mild crackles at base of the lungs Currently on 3 L S1, S2 Abdomen soft Nonfocal neuro exam Data 06/22/23 05:38 06/22/23 05:38 Micro: Microbiology 06/21/23 20:28 Blood Culture - Preliminary Blood SPECIMEN COLLECTED 06/21/23 20:03 Blood Culture - Preliminary Blood SPECIMEN COLLECTED A&P Assessment and plan (1) Pneumonia: (2) Acute respiratory failure with hypoxia: (3) Hyponatremia: (4) Right lower lobe pneumonia: (5) Edema: (6) Left lower lobe pneumonia: Plan Acute systolic CHF exacerbation Previous EF around 40% I will give her IV Lasix no need to repeat echo at this point, discontinue p.o. 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
--- NOTE | 2023-06-22 13:06 | CTR_ITS ---
PROCEDURE INFORMATION: Exam: CT Chest Without Contrast; Diagnostic Exam date and time: 06/22/2023 3:10 PM Age: 77 years old Clinical indication: Dyspnea; Additional info: Pna TECHNIQUE: Imaging protocol: Diagnostic computed tomography of the chest without contrast. Sagittal and coronal reformatted images were created and reviewed. Radiation optimization: All CT scans at this facility use at least one of these dose optimization techniques: automated exposure control; mA and/or kV adjustment per patient size (includes targeted exams where dose is matched to clinical indication); or iterative reconstruction. REPORTING DATA: Count of CT and Cardiac NM exams in prior 12 months: This patient has received 7 known CTs and 0 known cardiac nuclear medicine studies in the 12 months prior to the current study. COMPARISON: 1[place] [id number] 09/07/2022 1:54 AM 2. CR (CHEST, ) 06/21/2023 9:05 PM 3. CR (CHEST, ) 04/28/2023 6:45 AM RADIATION DOSE METRICS: Total DLP (mGy-cm): 312.09 FINDINGS: Limitations: Evaluation of the mediastinum and vasculature is limited without intravenous contrast. Trachea: Tracheobronchial structures are patent. Lungs: Areas of ground-glass opacification in the right and left upper lobes and more extensively in the right middle and right lower lobes. Findings are suspicious for pneumonia, including atypical and viral organisms. Few small calcified granulomas in the right upper lobe. Airspace disease with air bronchograms in the right and left lower lobe, more extensive on the right. Findings suggest compressive atelectasis, underlying pneumonia cannot be ruled out. There is linear scarring in the right and left upper lobes. No noncalcified pulmonary parenchymal nodules or masses. Pleural spaces: Moderate right and small left pleural effusions. No pneumothorax. Heart: Stable moderate enlargement of the heart. Stable calcification of the mitral valve annulus. Coronary arteries: Stable extensive atherosclerotic calcification in the coronary arteries. Esophagus: The esophagus is unremarkable. Mediastinal space: No mediastinal hematoma. No pneumomediastinum. Lymph nodes: No lymphadenopathy. Calcified lymph nodes in the mediastinum and right hilum. Vasculature: Stable mild to moderate atherosclerotic changes in the visualized arteries. No evidence for aortic aneurysm. Pulmonary arteries are unremarkable. Pulmonary veins are unremarkable. Liver: The visualized liver is unremarkable. Gallbladder and bile ducts: Stable findings consistent with a previous cholecystectomy. Stable dilatation of the visualized biliary ducts, not unexpected in a patient who has had a prior cholecystectomy. Pancreas: Stable moderate atrophy of the visualized pancreatic parenchyma. No pancreatic ductal dilatation. Spleen: The spleen is unremarkable. Adrenal glands: The right and left adrenal glands are unremarkable. Kidneys and ureters: The visualized right and left kidneys are unremarkable. Bones/joints: Degenerative changes in the spine and shoulders. Soft tissues: No acute abnormality in the extrathoracic soft tissues. CT/CT chest wo con [id number] IMPRESSION: 1. Areas of ground-glass opacification in the right and left upper lobes and more extensively in the right middle and right lower lobes. Findings are suspicious for asymmetric pulmonary edema versus atypical pneumonia. Moderate right and small left pleural effusions and alveolar airspace disease with air bronchograms in the right and left lower lobe, more extensive on the right. Findings suggest compressive atelectasis, underlying pneumonia cannot be ruled out. Recommend followup chest imaging to insure resolution of these findings. 4. Incidental/nonacute findings are listed in the report.
[2023-06-22 13:13] LABS: INR 1.02 (0.8-1.2)
[2023-06-22] MEDS: FUROsemide 40 mg Tablet PO (14:18)
[2023-06-22] MEDS: levoFLOXacin 750 mg Tablet PO (14:18)
[2023-06-22] MEDS: potassium chloride oral liq 20 mEq/15 mL UDC 40 MEQ PO (14:19)
[2023-06-22 16:37] LABS: Glucose Point of Care 161 mg/dL (70-110)
[2023-06-22] MEDS: amoxicillin-clav 875-125 mg Tablet 1 TAB PO (17:18)
--- NOTE | 2023-06-22 19:17 | PC.NURSE ---
Pt has history of infiltrating IVs. Pt family requested to switch over to PO meds. Doctor was contacted and okayed it.
[2023-06-22 20:54] LABS: Glucose Point of Care 141 mg/dL (70-110)
[2023-06-22] MEDS: aspirin 81 mg EC Tablet PO (21:57)
[2023-06-22] MEDS: insulin glargine 100 units/1 mL 25 UNIT SUBCUT (21:59)
[2023-06-23] VITALS (8 sets, daily range): BP systolic 108–146; BP diastolic 51–72; PULSE 75–99; RESP 16–17; TEMP 36.7–37.1; O2SAT 94–98
[2023-06-23] MEDS: famotidine 20 mg Tablet PO ×3 (00:21→17:39)
[2023-06-23 05:16] LABS: Basophils % 0.6 %; Eosinophils # 0.3 10^3/uL (0.0-0.8); Hematocrit 31.4 % (36-47); Lymphocytes # 1.5 10^3/uL (0.8-4.8); Lymphocytes % 21.6 %; Mean Corpuscular HGB Conc 31.2 g/dL (30-55); Mean Corpuscular Hemoglobin 26.8 pg (27-33); Mean Corpuscular Volume 85.8 fl (85-98); Mean Platelet Volume 10.3 fL (7.4-10.4); Monocytes # 0.5 10^3/uL (0.2-0.9); Monocytes % 7.1 %; Neutrophils # 4.67 10^3/uL (1.8-7.7); Neutrophils % 66.3 %; Nucleated Red Blood Cells % 0 %; Platelet Count 365 10^3/cmm (157-399); Red Blood Count 3.66 10^6/uL (3.85-5.65); Red Cell Distribution Width 14.5 % (12.1-15.1); White Blood Count 7.04 10^3/uL (3.29-11.43)
[2023-06-23 05:31] LABS: INR 1.03 (0.8-1.2)
[2023-06-23 05:35] LABS: Anion Gap 13.7 (5-19); Blood Urea Nitrogen 14 mg/dL (8-23); Calcium 8.3 mg/dL (8.5-10.5); Carbon Dioxide 28 mmol/L (22-29); Chloride 102 mmol/L (98-107); Glucose 86 mg/dL (65-115); Osmolality Calculated 290 mOsm/kg (285-295); Potassium 3.7 mmol/L (3.5-5.1); Sodium 140 mmol/L (136-145)
[2023-06-23 06:44] LABS: Glucose Point of Care 83 mg/dL (70-110)
[2023-06-23] MEDS: phenazopyridine 100 mg Tablet PO ×3 (07:58→21:40)
[2023-06-23] MEDS: potassium chloride ER 20 mEq Tablet 40 MEQ PO (07:58)
[2023-06-23] MEDS: amoxicillin-clav 875-125 mg Tablet 1 TAB PO ×2 (07:58→17:39)
[2023-06-23] MEDS: FUROsemide 40 mg Tablet PO (07:58)
[2023-06-23] MEDS: amlodipine 10 mg Tablet PO (07:58)
[2023-06-23] MEDS: clopidogrel 75 mg Tablet PO (07:58)
[2023-06-23] MEDS: hyDRALAzine 25 mg Tablet PO ×3 (07:59→21:40)
[2023-06-23] MEDS: atorvastatin 40 mg Tablet 80 MG PO (07:59)
[2023-06-23] MEDS: HYDROcodone-acetaminophen 5-325 mg Tablet 1 TAB PO ×2 (07:59→17:39)
[2023-06-23] MEDS: metoprolol tartrate 50 mg Tablet 100 MG PO ×2 (07:59→21:40)
[2023-06-23] MEDS: nitroglycerin 0.4 mg sublingual Tablet SUBLINGUAL ×2 (09:04→09:11)
--- NOTE | 2023-06-23 09:13 | ECG_ITS ---
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 Measurements Intervals [place] Rate: 83 P: -4 CT: 143 QRS: 66 QRSD: 136 T: -18 QT: 427 QTc: 502 Interpretive Statements SINUS RHYTHM Left bundle branch block Compared to ECG 06/22/2023 02:09:43 Intraventricular conduction delay now present Sinus tachycardia no longer present Electronically Signed On 06-23-2023 10:55:30 CDT by Kvng Demarco M.D. [id number]
--- NOTE | 2023-06-23 09:31 | P.PN_ITS ---
Subjective Subjective: This morning patient was taking a shower Endorsing feeling better than had an episode of chest pain which got relieved nitroglycerin CT scan is showing pneumonia Patient is on room air Hemodynamic stable Afebrile Vitals/I&O/Wt Last Vital Signs Temp 98.5 F 06/23/23 08:34 Pulse 99 06/23/23 08:34 Resp 17 06/23/23 08:34 BP 122/59 06/23/23 08:34 Pulse Ox 94 06/23/23 08:34 O2 Del Method Room Air 06/23/23 08:34 O2 Flow Rate 2.5 06/23/23 07:40 06/22/23 06/23/23 06/23/23 22:59 06:59 14:59 Intake Total 240 / 1240 480 / 480 Balance 240 / 1240 480 / 480 Weight last 48 hrs Weight 64.41 kg Physical Exam Narrative: Is able to walk Take a shower as well Awake alert Currently on room air Signs of fluid overload improving Lungs sounding much better today She is awake and alert GCS 15, S2 Data 06/23/23 04:56 06/23/23 04:56 Micro: Microbiology 06/21/23 21:04 Urine Culture - Final Urine,Clean Catch 06/21/23 20:28 Blood Culture - Preliminary Blood NEGATIVE TO DATE 06/21/23 20:03 Blood Culture - Preliminary Blood NEGATIVE TO DATE A&P Assessment and plan (1) Pneumonia: (2) Acute respiratory failure with hypoxia: (3) CHF exacerbation: Plan Diastolic CHF exacerbation Previous echo showed preserved ejection fraction No need to repeat echo as it was done last year Continue diuretics AMY likely cardiorenal anticipate improvement with diuresis Chest pain: Sinus rhythm on EKG, will require stress test tomorrow Persistent pneumonia CT scan showing consolidation with air bronchograms consistent with pneumonia continue Augmentin and levofloxacin Limited resuscitation Patient will need another CT scan of lung to see resolution of pneumonia N.p.o. after midnight for stress test Discharge tomorrow if stable Attestations Medical Necessity Statement*: Discharge tomorrow if stable Coding Level of Care Code 51743 Moderate MDM includes number and complexity of problems actively addressed during encounter, amount and/or complexity of data reviewed/ordered and described risk of complication, morbidity or mortality of management as docu mented Diagnoses Pneumonia J18.9 Acute respiratory failure with hypoxia J96.01 CHF exacerbation I50.9
--- NOTE | 2023-06-23 09:33 | ECG_ITS ---
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 Interpretive Statements NAME OF STUDY: LEXISCAN SESTAMIBI STRESS TEST INDICATION: Chest Pain, PROCEDURE: At the baseline, the EKG revealed normal sinus rhythm with frequent supraventricular ectopics. Nonspecific IVCD and nonspecific T wave changes. The baseline heart was 81 bpm with a blood pressue of 116/80 mm of Hg Lexiscan was infused over a period of 20 seconds. A total of 0.4 milligrams of Lexiscan was infused. The stress phase was continued for a total of 5 minutes. Heart rate at the end of the stress phase was 99 bpm with a blood pressure 105/55 mm of Hg. The EKG at the peak infusion revealed no significant changes. Sestamibi was injected 20 seconds after the Lexiscan infusion. Heart rate at the end of the recovery phase was 94 bpm with a blood pressure of 136/56 mm of Hg. CONCLUSION: 1. No significant EKG changes with the LexiScan infusion 2. No LexiScan induced chest pain or cardiac arrhythmia 3. Normal blood pressure and heart rate response 4. Sestamibi/sestamibi perfusion scan pending; see separate report. Electronically Signed On 06-24-2023 8:53:52 CDT by Dhruv Clement M.D. [id number]
[2023-06-23 11:22] LABS: Glucose Point of Care 168 mg/dL (70-110)
[2023-06-23] MEDS: insulin lispro 100 unit/1 mL SUBCUT ×2 (11:30→17:40)
[2023-06-23 16:28] LABS: Glucose Point of Care 200 mg/dL (70-110)
[2023-06-23 21:08] LABS: Glucose Point of Care 336 mg/dL (70-110)
[2023-06-23] MEDS: aspirin 81 mg EC Tablet PO (21:39)
[2023-06-23] MEDS: insulin glargine 100 units/1 mL 50 UNIT SUBCUT (21:41)
[2023-06-23] MEDS: insulin lispro 100 unit/1 mL 10 UNIT SUBCUT (21:44)
[2023-06-23 22:38] LABS: Glucose Point of Care 354 mg/dL (70-110)
[2023-06-24] VITALS (7 sets, daily range): BP systolic 114–137; BP diastolic 56–70; PULSE 73–91; RESP 15–16; TEMP 36.8–36.9; O2SAT 93–99
[2023-06-24] MEDS: enoxaparin 30 mg/0.3 mL Syringe SUBCUT (01:02)
[2023-06-24 01:05] LABS: Glucose Point of Care 240 mg/dL (70-110)
[2023-06-24] MEDS: HYDROcodone-acetaminophen 5-325 mg Tablet 1 TAB PO (05:48)
[2023-06-24 05:54] LABS: Basophils % 0.3 %; Eosinophils # 0.2 10^3/uL (0.0-0.8); Eosinophils % 2.2 %; Hematocrit 36.7 % (36-47); Lymphocytes # 2.3 10^3/uL (0.8-4.8); Lymphocytes % 23.1 %; Mean Corpuscular HGB Conc 30.8 g/dL (30-55); Mean Corpuscular Hemoglobin 26.2 pg (27-33); Mean Platelet Volume 10.4 fL (7.4-10.4); Monocytes # 0.8 10^3/uL (0.2-0.9); Monocytes % 7.9 %; Neutrophils # 6.49 10^3/uL (1.8-7.7); Nucleated Red Blood Cells % 0 %; Platelet Count 502 10^3/cmm (157-399); Red Blood Count 4.32 10^6/uL (3.85-5.65); Red Cell Distribution Width 14.3 % (12.1-15.1); White Blood Count 9.85 10^3/uL (3.29-11.43)
[2023-06-24 06:00] LABS: INR 0.88 (0.8-1.2)
[2023-06-24 06:04] LABS: Anion Gap 16.5 (5-19); Blood Urea Nitrogen 21 mg/dL (8-23); Calcium 9.3 mg/dL (8.5-10.5); Carbon Dioxide 29 mmol/L (22-29); Chloride 95 mmol/L (98-107); Glucose 172 mg/dL (65-115); Osmolality Calculated 291 mOsm/kg (285-295); Potassium 3.5 mmol/L (3.5-5.1); Sodium 137 mmol/L (136-145)
[2023-06-24 06:49] LABS: Glucose Point of Care 176 mg/dL (70-110)
[2023-06-24] MEDS: ondansetron 2 mg/ML SDV 2 mL 4 MG IVP ×2 (07:28→07:43)
[2023-06-24] MEDS: regadenoson 0.4 Mg/5 ml Syringe IVP (07:28)
[2023-06-24] MEDS: aminophylline 25 mg/mL SDV 10 mL IVP ×2 (07:43→07:47)
--- NOTE | 2023-06-24 09:33 | NMCV_ITS ---
NM alfredo perf SPECT r/s* [id number] Evelyn Farley Age: 77 Gender: F : 1945 Exam Date: 06/24/2023 09:33 Ordering Phys: Abbey Jacinto MD Technologist: DARBY Arndt Exam Location: [facility] Indications: CHEST PAIN STRESS TEST [facility] IMAGE PROTOCOL Rest/Stress 1 Lexiscan Day Radiopharmaceutical Dose (mCi) Administration Site Administered by Rest: Tc-99m 10.9 IV DARBY Ramos Sestamibi Stress:Tc-99m 32.8 IV DARBY Ramos Sestamibi Rest: 24-Jun-2023 60 Discovery 630 Stress: 24-Jun-2023 30 Discovery 630 0.4mg Lexiscan. Supine position only as patient was unable to lay prone. SPECT RESULTS Technical Quality: Excellent Raw Data Analysis: Normal Image Corrections: No attenuation or motion correction applied Summed Stress Score: 0 Summed Rest Score: 1 Summed Difference Score: 0 PERFUSION FINDINGS Fairly uniform myocardial tracer uptake with no significant perfusion abnormalities. FUNCTIONAL RESULTS (calculated via Gated SPECT) Stress Image LV EF (%): 75 Stress EDV (mL):79 TID: 0.96 Stress ESV (mL):20 FUNCTIONAL FINDINGS: Segmental wall motion analysis revealing no gross wall motion abnormalities IMPRESSIONS 1. Uniform myocardial tracer uptake with no significant perfusion abnormalities. 2. Normal LV ejection fraction 75%. 3. LV wall motion analysis revealing no gross wall motion abnormalities. 4. Normal LV volume Low probability for coronary ischemia, based on the above findings No similar previous studies are available for comparison Dr Dhruv Clement MD [facility] (Electronically Signed) Final Date: 24 June 2023 10:00 S
[2023-06-24] MEDS: FUROsemide 40 mg Tablet PO (09:39)
[2023-06-24] MEDS: atorvastatin 40 mg Tablet 80 MG PO (09:40)
[2023-06-24] MEDS: hyDRALAzine 25 mg Tablet PO (09:40)
[2023-06-24] MEDS: famotidine 20 mg Tablet PO (09:40)
[2023-06-24] MEDS: amlodipine 10 mg Tablet PO (09:40)
[2023-06-24] MEDS: amoxicillin-clav 875-125 mg Tablet 1 TAB PO (09:40)
[2023-06-24] MEDS: phenazopyridine 100 mg Tablet PO (09:40)
[2023-06-24] MEDS: potassium chloride ER 20 mEq Tablet 40 MEQ PO (09:40)
[2023-06-24] MEDS: clopidogrel 75 mg Tablet PO (09:40)
[2023-06-24] MEDS: metoprolol tartrate 50 mg Tablet 100 MG PO (09:40)
--- NOTE | 2023-06-24 09:50 | PM.DCS ---
Discharge Providers Date of Admission: 06/21/23 22:28 Date of Discharge: June 24, 2023 Attending Provider at Admission: Denia Bearden MD Attending Provider at Discharge: Abbey Jacinto MD Primary Care Provider: Jane Strickland MD Diagnoses at Discharge Discharge Diagnosis (1) Pneumonia: Status: Acute (2) Acute respiratory failure with hypoxia: Status: Acute (3) CHF exacerbation: Status: Resolved Reason for Visit Reason for Visit: SOB/N/V Hospital Course Hospital Course 7-year female with history of CABG coronary disease, history of stent placed mid LAD left anterior descending left distal circumflex balloon angioplasty September 2022, presented with chief complaint of worsening of shortness of breath, she was diagnosed with persistent pneumonia and CT scan consistent with multilobar pneumonia she was given antibiotics, she admitted afebrile & did not require oxygen. Cultures remain negative. Patient will need another CT scan within 6 weeks to make sure pneumonia has resolved otherwise she will need pulmonary follow-up. Patient also suffer from diastolic CHF exacerbation which was consistent with pulmonary edema, patient did well with diuretics, patient will keep taking her aspirin and Plavix, she will receive Lasix 40 mg daily regimen along potassium supplement, cardiac stress test was requested before her discharge, she was complaining of mild chest discomfort on exertion. EKG unremarkable, patient is hemodynamically stable at the time of discharge Home oxygen evaluation will be done before discharge as well Physical Exam Narrative: Awake and alert GCS 15 Abdomen soft S1, S2 Nonfocal neuro exam Discharge Data Studies Completed and Pending Completed Studies During Hospitalization Category Date Time Status CT chest wo con [id number] Routine Cat Scan 06/22/23 13:06 Completed Sestamibi Stress Test Request Routine Exams 06/23/23 09:33 Completed XR chest 1V portable [id number] Stat Exams 06/21/23 20:42 Completed Pending at discharge Category Date Time Status Blood Culture Stat Lab 06/21/23 20:28 Results Vancomycin Trough Timed Lab 06/24/23 22:00 Ordered NM alfredo perf SPECT r/s* [id number] Routine Nuc Med 06/24/23 09:33 Ordered Radiology Impressions Chest X-Ray 06/21/23 20:42 IMPRESSION: 1. Increased confluent right basal opacities with partial silhouetting of the right cardiac border concerning for combination of right middle lobe and right lower lobe consolidation/pneumonia. Given persistence of consolidation in this region compared to 04/28/2023, recommend CT chest for characterization of the lung parenchyma. 2. Mild pulmonary edema with small right pleural effusion. ADDENDUM: 06/21/23 0600 THIS REPORT CONTAINS FINDINGS THAT MAY BE CRITICAL TO PATIENT CARE. The findings were verbally communicated via telephone conference with NELLY Smith at 10:17 PM CDT on 06/21/2023. The findings were acknowledged and understood. Chest CT 06/22/23 13:06 IMPRESSION: 1. Areas of ground-glass opacification in the right and left upper lobes and more extensively in the right middle and right lower lobes. Findings are suspicious for asymmetric pulmonary edema versus atypical pneumonia. Moderate right and small left pleural effusions and alveolar airspace disease with air bronchograms in the right and left lower lobe, more extensive on the right. Findings suggest compressive atelectasis, underlying pneumonia cannot be ruled out. Recommend followup chest imaging to insure resolution of these findings. 4. Incidental/nonacute findings are listed in the report. Laboratory Results WBC 9.85 10^3/uL (3.29-11.43) 06/24/23 05:28 RBC 4.32 10^6/uL (3.85-5.65) 06/24/23 05:28 Hgb 11.30 g/dL (11.27-16.99) 06/24/23 05:28 Hct 36.7 % (36-47) 06/24/23 05:28 MCV 85.0 fl (85-98) 06/24/23 05:28 MCH 26.2 pg (27-33) L 06/24/23 05:28 MCHC 30.8 g/dL (30-55) 06/24/23 05:28 RDW 14.3 % (12.1-15.1) 06/24/23 05:28 Plt Count 502 10^3/cmm (157-399) H D 06/24/23 05:28 MPV 10.4 fL (7.4-10.4) 06/24/23 05:28 Neut % (Auto) 66.0 % 06/24/23 05:28 Lymph % (Auto) 23.1 % 06/24/23 05:28 [place] % (Auto) 7.9 % 06/24/23 05:28 Eos % (Auto) 2.2 % 06/24/23 05:28 Baso % (Auto) 0.3 % 06/24/23 05:28 Neut # (Auto) 6.49 10^3/uL (1.8-7.7) 06/24/23 05:28 Lymph # (Auto) 2.3 10^3/uL (0.8-4.8) 06/24/23 05:28 [place] # (Auto) 0.8 10^3/uL (0.2-0.9) 06/24/23 05:28 Eos # (Auto) 0.2 10^3/uL (0.0-0.8) 06/24/23 05: Baso # (Auto) 0.0 10^3/uL (0.0-0.1) 06/24/23 05:28 Nucleated RBC % (auto) 0 % 06/24/23 05: Nucleated RBCs # 0.0 /100WBC 06/24/23 05:28 PT 12.20 SECONDS (12.1-14.9) 06/24/23 05: INR 0.88 (0.8-1.2) 06/24/23 05:28 Specimen Type Arterial 06/21/23 20:40 Sample Site Brachial, left 06/21/23 20:40 ABG pH 7.49 (7.35-7.45) H 06/21/23 20:40 ABG pCO2 32.4 mmHg (35-45) L 06/21/23 20:40 ABG pO2 66.1 mmHg (80.0-100.0) L 06/21/23 20:40 ABG HCO3 24.7 mmol/L (22-26) 06/21/23 20:40 ABG Base Excess 1.5 mmol/L (-2.0-2.0) 06/21/23 20:40 Antonio Test N/a 06/21/23 20:40 Hematocrit 28.2 % (37-47) L 06/21/23 20:40 O2 Delivery Device Nc 06/21/23 20:40 O2 Liters/Min 4.0 % 06/21/23 20:40 FiO2 36.0 % 06/21/23 20:40 Porcelain Enameling Supervisor ID [email or web address] 06/21/23 20:40 Sodium 137 mmol/L (136-145) 06/24/23 05:28 Potassium 3.5 mmol/L (3.5-5.1) 06/24/23 05:28 Chloride 95 mmol/L (98-107) L 06/24/23 05:28 Carbon Dioxide 29 mmol/L (22-29) 06/24/23 05:28 Anion Gap 16.5 (5-19) 06/24/23 05:28 BUN 21 mg/dL (8-23) 06/24/23 05:28 Creatinine 1.8 mg/dL (0.5-0.9) H 06/24/23 05:28 GFR Calculation Not Reportable 06/24/23 05:28 Glucose 172 mg/dL (65-115) H 06/24/23 05:28 POC Glucose 176 mg/dL (70-110) H 06/24/23 06:46 Calculated Osmolality 291 mOsm/kg (285-295) 06/24/23 05:28 Lactic Acid 1.9 mmol/L (0.5-2.2) 06/21/23 20:03 Calcium 9.3 mg/dL (8.5-10.5) 06/24/23 05:28 Magnesium 2.1 mg/dL (1.7-2.3) 06/22/23 05:38 Total Bilirubin 0.7 mg/dL (0.15-1.2) 06/22/23 05:38 AST 16 U/L (0-32) 06/22/23 05:38 ALT 16 U/L (0-33) 06/22/23 05:38 Alkaline Phosphatase 129 U/L (35-105) H 06/22/23 05:38 Troponin T Gen 5 ng/L 20 ng/L (0-10) H 06/21/23 20:03 Troponin T 120 Minute 24.14 ng/L (0-10) H 06/21/23 22:01 Delta Troponin T 4.14 ABS# (0-10) 06/21/23 22:01 Troponin T Hi Sens 6Hr 19.45 ng/L (0-10) H 06/22/23 02:26 Troponin T Hi Sens 6Hr Delta -0.55 ng/L (0-12) L 06/22/23 02:26 NT-Pro-B Natriuret Pep 6502 pg/mL (0-450) H 06/22/23 05:38 Total Protein 6.0 g/dL (6.6-8.7) L 06/22/23 05:38 Albumin 3.4 g/dL (3.5-5.2) L 06/22/23 05:38 Globulin 2.6 g/dL (1.3-4.6) 06/22/23 05:38 Urine Color Yellow (Yellow) 06/22/23 02:26 Urine Appearance Clear (CLEAR) 06/22/23 02:26 Urine pH 8 (5-7) H 06/22/23 02:26 Ur Specific [place] 1.005 (1.005-1.030) 06/22/23 02:26 Urine Protein 1+ (Negative) H 06/22/23 02:26 Urine Glucose (UA) 2+ (Normal) H 06/22/23 02:26 Urine Ketones 1+ (Negative) H 06/22/23 02:26 Urine Blood 3+ (Negative) H 06/22/23 02:26 Urine Nitrate Negative (Negative) 06/22/23 02:26 Urine Bilirubin Neg (Negative) 06/22/23 02:26 Prot Sulfosalicylic Acd Positive (Negative) 06/22/23 02:26 Urine Urobilinogen Neg mg/dL (Negative) 06/22/23 02:26 Ur Leukocyte Esterase Negative (Negative) 06/22/23 02:26 Urine RBC 0-4 /hpf (0-2) H 06/21/23 21:04 Urine WBC 0-4 /hpf (0-5) H 06/21/23 21:04 Ur Squamous Epith Cells 0-4 /hpf (0-5) H 06/21/23 21:04 Amorphous Sediment Not Reportable 06/21/23 21:04 Urine Bacteria 1+ /hpf (NONE) H 06/21/23 21:04 Fine Granular Casts 0-4 /lpf H 06/21/23 21:04 Coarse Granular Casts 5-10 /lpf H 06/21/23 21:04 Serum Ketones Positive (Negative) H 06/21/23 20:03 SARS-CoV-2 Ag (Rapid) negative (Negative) 06/21/23 20:22 Vitals Last Vital Signs Temp 98.2 F 06/24/23 08:00 Pulse 90 06/24/23 08:00 Resp 16 06/24/23 08:00 BP 137/65 06/24/23 08:00 Pulse Ox 99 06/24/23 08:00 O2 Del Method Nasal Cannula 06/24/23 08:00 O2 Flow Rate 1 06/24/23 00:00 Discharge Plan Discharge Patient Disposition: Home Condition: Stable Prescriptions: New amoxicillin-pot clavulanate 875-125 mg Tablet 1 tab PO BID Qty: 10 0RF furosemide 40 mg Tablet 40 mg PO DAILY@0800 Qty: 30 0RF levofloxacin 750 mg Tablet 750 mg PO Q48H Qty: 3 0RF potassium chloride [Klor-Con M20] 20 mEq Tablet,Er Particles/Crystals 40 meq PO DAILY Qty: 30 0RF Continued amlodipine 10 mg tablet 10 mg PO DAILY Qty: 60 0RF albuterol sulfate 90 mcg/actuation HFA aerosol inhaler 2 puff inhalation Q6H PRN (Reason: shortness of breath or wheezing) Qty: 8.5 0RF (DME) Dexcom G7 Claim Attorney Misc See Rx Instructions .Route Qty: 1 0RF Rx Instructions: As directed (DME) Dexcom G7 Sensor Device See Rx Instructions .Route Qty: 1 0RF Rx Instructions: As directed sumatriptan succinate 100 mg tablet See Rx Instructions PO .COMPLEX Qty: 14 0RF Rx Instructions: take 1 tab at onset of headache; if no relief, may repeat 1 tab after at least 2 hrs; max = 2 tabs/24 hrs PO (DME) blood-glucose meter Kit See Rx Instructions .ROUTE .MEDSUPPLY Qty: 1 0RF Rx Instructions: TEST 4 TIMES PER DAY (DME) Accu-Chek [place] Plus test strp Strip See Rx Instructions .ROUTE .MEDSUPPLY Qty: 100 4RF Rx Instructions: TEST QID (DME) pen needle, diabetic [1st Tier Unifine Pentips] 29 gauge x 1/2 needle See Rx Instructions .Route Qty: 100 4RF Rx Instructions: As directed (DME) Accu-Chek [place] Plus test strp Strip See Rx Instructions .Route Qty: 100 4RF Rx Instructions: As directed; QID clopidogrel 75 mg tablet See Rx Instructions .ROUTE .COMPLEX Qty: 30 0RF Dose Instruction: TAKE 1 TABLET BY MOUTH DAILY Rx Instructions: TAKE 1 TABLET BY MOUTH DAILY metoprolol tartrate 100 mg tablet See Rx Instructions .ROUTE .COMPLEX Qty: 180 1RF Dose Instruction: TAKE 1 TABLET BY MOUTH EVERY TWELVE HOURS Rx Instructions: TAKE 1 TABLET BY MOUTH EVERY TWELVE HOURS Novolog FlexPen U-100 Insulin 100 unit/mL (3 mL) insulin pen See Rx Instructions .ROUTE .COMPLEX Qty: 15 0RF Dose Instruction: INJECT FIVE UNITS (0.05ML) SUBCUTANEOUSLY THREE TIMES DAILY FOR 30 DAYS PER SLIDING SCALE ADJUST DIRECTED Rx Instructions: INJECT FIVE UNITS (0.05ML) SUBCUTANEOUSLY THREE TIMES DAILY FOR 30 DAYS PER SLIDING SCALE ADJUST DIRECTED rosuvastatin 40 mg tablet See Rx Instructions .ROUTE .COMPLEX Qty: 30 5RF Dose Instruction: TAKE 1 TABLET BY MOUTH EVERY DAY Rx Instructions: TAKE 1 TABLET BY MOUTH EVERY DAY ondansetron HCl 8 mg tablet See Rx Instructions .ROUTE .COMPLEX Qty: 20 5RF Dose Instruction: TAKE ONE TABLET BY MOUTH EVERY 8 HOURS as needed for FOR NAUSEA AND VOMITING Rx Instructions: TAKE ONE TABLET BY MOUTH EVERY 8 HOURS as needed for FOR NAUSEA AND VOMITING hydrocodone-acetaminophen 5-325 mg tablet 1 tab PO Q8H PRN (Reason: pain) 30 Days Qty: 90 0RF hydralazine 25 mg tablet See Rx Instructions .ROUTE .COMPLEX Qty: 90 0RF Dose Instruction: TAKE 1 TABLET BY MOUTH THREE TIMES DAILY Rx Instructions: TAKE 1 TABLET BY MOUTH THREE TIMES DAILY (DME) pen needle, diabetic [TechLITE Pen Needle] 32 gauge x 5/32 needle See Rx Instructions .ROUTE .COMPLEX Qty: 100 3RF Dose Instruction: USE FOUR TIMES DAILY WITH INSULIN Rx Instructions: USE FOUR TIMES DAILY WITH INSULIN Levemir FlexPen 100 unit/mL (3 mL) insulin pen See Rx Instructions .ROUTE .COMPLEX Qty: 40 2RF Dose Instruction: inject 80 units SUBCUTANEOUSLY TWICE DAILY Rx Instructions: inject 60 units SUBCUTANEOUSLY TWICE DAILY multivitamin Tablet 1 tab PO QAM nitroglycerin 0.4 mg tablet, sublingual 0.4 mg sublingual Q5M PRN (Reason: chest pain) Qty: 30 0RF Rx Instructions: do not exceed 3 doses per episode aspirin [Adult Low Dose Aspirin] 81 mg tablet,delayed release (DR/EC) 81 mg PO BEDTIME 30 Days Qty: 30 3RF omeprazole 20 mg capsule,delayed release(DR/EC) 20 mg PO BID Discharge Orders: Discharge Order (Routine); Ordered 06/24/23 Ordered By: Abbey Jacinto Other Ambulatory Orders: CT chest wo con [id number] (Routine) Timeframe: 6 Weeks Facility: [facility] - Location: [facility] Ordered By: Abbey Jacinto Referrals: Jane Strickland MD [Primary Care Provider] - 1 week Discharge Diet: Cardiac Patient Instructions: Opioid Safety Discharge Attestations Time Spent in Discharge Care*: greater than 30 min Quality Metrics Clinical Quality Measures [ No reported AMI, CVA or VTE this stay] Coding Level of Care Code Acute Code for Chg Fwd Diagnoses Pneumonia J18.9 Acute respiratory failure with hypoxia J96.01 CHF exacerbation I50.9
[2023-06-24 11:13] LABS: Glucose Point of Care 241 mg/dL (70-110)
[2023-06-24] MEDS: insulin lispro 100 unit/1 mL SUBCUT (12:19)
[2023-06-24] MEDS: levoFLOXacin 750 mg Tablet PO (12:21)
== END 2023-06-24 12:46 | disposition home or self-care (01) | DRG 193 ==
LOC: ER 21:47 → MEDSURG 23:21
PROVIDERS: Admitting Provider Internal Medicine; Emergency Provider Emergency Medicine; PCP Family Medicine; Visit Provider Internal Medicine
DX: J18.9 Pneumonia, unspecified organism (principal); I50.31 Acute diastolic (congestive) heart failure; J96.01 Acute respiratory failure with hypoxia; I13.0 Hypertensive heart and chronic kidney disease with heart failure and stage 1 through stage 4 chronic kidney disease, or unspecified chronic kidney disease; E87.1 Hypo-osmolality and hyponatremia; N17.9 Acute kidney failure, unspecified; I25.10 Atherosclerotic heart disease of native coronary artery without angina pectoris; Z95.5 Presence of coronary angioplasty implant and graft; Z95.1 Presence of aortocoronary bypass graft; N18.9 Chronic kidney disease, unspecified; E11.22 Type 2 diabetes mellitus with diabetic chronic kidney disease; Z79.02 Long term (current) use of antithrombotics/antiplatelets; Z79.4 Long term (current) use of insulin; Z79.891 Long term (current) use of opiate analgesic; Z79.82 Long term (current) use of aspirin; E11.42 Type 2 diabetes mellitus with diabetic polyneuropathy; E11.43 Type 2 diabetes mellitus with diabetic autonomic (poly)neuropathy; K31.84 Gastroparesis; E78.5 Hyperlipidemia, unspecified; M79.7 Fibromyalgia; Z87.440 Personal history of urinary (tract) infections; I25.2 Old myocardial infarction
CPT/HCPCS: 36415; 36416; 36600; 71045; 71250; 78452; 80048; 80053; 81001; 81003; 82009; 82803; 82962; 83605; 83735; 83880; 84484; 85025; 85610; 87040; 87086; 87426; 93005; 93017; 94664; 94760; 96365; 96366; 96367; 96372; 96375; 99285; A9500; J0280; J1650; J1815; J2270; J2405; J2543; J2785; J3370; J3490; J7030; J7050

== ENCOUNTER → 2023-07-16 13:54 | Outpatient (BNVA) | payer MEDICARE, OTHER, SELFPAY | PROVIDERS: PCP Family Medicine; Visit Provider Specialist | DX: E11.40 Type 2 diabetes mellitus with diabetic neuropathy, unspecified (principal); Z79.4 Long term (current) use of insulin | CPT/HCPCS: 99213; 99214 ==

== ENCOUNTER 2023-07-26 13:14 | Inpatient (IN) | payer MEDICARE, OTHER, SELFPAY ==
[2023-07-26] VITALS (8 sets, daily range): BP systolic 129–193; BP diastolic 74–94; PULSE 73–705; RESP 14–20; TEMP 36.5–36.8; O2SAT 93–100; BMI 25.9
--- NOTE | 2023-07-26 13:44 | XR_ITS ---
WS: [id number] Portable AP upright chest, 07/26/2023 Clinical Data: chest pain Comparison: Portable chest, 06/21/2023 Findings: No nodules, masses or effusions are seen. The heart is normal. The pulmonary vascularity is not increased. No pneumonia or pneumothorax is seen. The aortic arch and descending thoracic aorta s how calcification. The patient's clothing obscures only minimal detail. Impression: Atherosclerosis.
--- NOTE | 2023-07-26 13:44 | ECG_ITS ---
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 Measurements Intervals [place] Rate: 80 P: 64 RI: 176 QRS: 9 QRSD: 142 T: 101 QT: 441 QTc: 511 Interpretive Statements SINUS RHYTHM LEFT BUNDLE BRANCH BLOCK [120+ ms QRS DURATION, 80+ ms Q/S IN V1/V2, 85+ ms R IN I/aVL/V5/V6] Compared to ECG 06/23/2023 09:19:14 No significant changes Electronically Signed On 07-26-2023 20:28:10 CDT by Christine Sepulveda M.D. [email or web address] [email or web address] [id number]
--- NOTE | 2023-07-26 13:50 | ED_ITS ---
HPI - Chest Pain General: Chief Complaint: Chest Pain Stated Complaint: Chest Pain/ NV/ Cardiac History Time Seen by Provider: 07/26/23 13:29 History of Present Illness: 77-year-old female with complex medical history including coronary disease with 4 stents presents emergency room today with chest pain that started this morning. Patient presents emergency room via EMS with nausea and actively vomiting. Patient described the chest pain as sharp sensation with severity of 7 out of 10. Pain is nonradiating. Patient denies any abdominal pain back pain, dysuria, hematuria urine frequency. Associated symptoms: Reports nausea and vomiting; Deny abdominal pain, dyspnea, fever(s) or palpitations Review of Systems Const: Denies: fever(s), chills, body aches or change in appetite Card: Reports: chest pain; Denies: palpitations, irregular heart rhythm, edema, swelling of feet/ankles or lightheadedness Resp: Denies: dyspnea, productive cough, non-productive cough, wheezing or stridor GI: Reports: nausea and vomiting; Denies: abdominal pain, hematemesis, coffee ground emesis, dysphagia, heartburn, early satiety, diarrhea, constipation, bloating, GI cramping or belching : Denies: flank pain, difficulty voiding, dysuria, urinary frequency, urinary urgency, urinary hesitancy, dribbling or nocturia Neuro: Denies: headache(s) or numbness in extremities Psych: Denies: anxiety, depression or mood swings [facility] ED PFSH: Medical History Abdominal pain Abnormal blood sugar Abnormal TSH Abscess or cellulitis of foot Acidosis, lactic Acute maxillary sinusitis Acute respiratory failure with hypoxia AMY (acute kidney injury) Anxiety and depression ASHD (arteriosclerotic heart disease) Cataracts, bilateral Chest pain CKD (chronic kidney disease) Colitis Colitis Colitis Community acquired pneumonia Congestive heart failure Constipation Continuous severe abdominal pain Dehydration Diabetes Diabetic ketoacidosis Diabetic neuropathy Diabetic peripheral neuropathy Diverticulitis DKA (diabetic ketoacidosis) Edema Fibromyalgia Gastroparesis Glucose measurement between 50 mg/dl to 400mg/dl Gram-positive bacteremia History of recurrent UTI (urinary tract infection) Hospital discharge follow-up Hyperglycemia Hyperglycemia due to diabetes mellitus Hyperlipidemia Hypertension Hypertension Hypokalemia Hypokalemia Hyponatremia Hypophosphatemia Insomnia Intractable abdominal pain Intractable vomiting with nausea Left lower lobe pneumonia Left renal stone Left ureteral calculus Leukocytosis Leukocytosis Migraine Nausea and vomiting Nausea and vomiting Nausea, vomiting, and diarrhea Neuropathic pain NSTEMI (non-ST elevated myocardial infarction) Odynophagia Pneumonia Pyelonephritis Pyuria Right lower lobe pneumonia Sepsis Shingles Ureterolithiasis Urolithiasis UTI (urinary tract infection) Yeast vaginitis Surgical History H/O angioplasty H/O carpal tunnel repair H/O: hysterectomy History of cholecystectomy S/P ureteral stent placement Family History Mother , at age 65 Heart attack Father , at age 63 Heart attack Other Diabetes Hypertension Social History Smoking and tobacco/nicotine status: never used tobacco/nicotine Second hand smoke exposure: No Alcohol intake: never Substance/Drug Use: never Adopted: No Caregiver/support person: Yes (spouse) Lives independently: Yes Household members: spouse Marital status: service: No Current occupational status: retired Current gender identity: Female Special vandana needs: No Agree to transfusion: Yes Physical Exam Const: COMMON NORMALS: no acute distress, average body habitus, patient oriented x3, no limitations, healthy appearing, alert and well nourished Neck/C-Spine: COMMON NORMALS: full ROM, no lymphadenopathy, supple, no meningeal signs, no JVD, Thyroid normal and No carotid bruits THYROID: Thyroid normal Lymph: LYMPHATIC: no lymphadenopathy noted Chest: COMMONS NORMALS: normal inspection of the chest, normal palpation of entire chest wall, normal inspection of the breasts and normal palpation of the breasts Breast/axilla inspection: Yes normal inspection of the breasts BREAST/AXILLA PALPATION: Yes normal palpation of the breasts Resp: COMMON NORMALS: normal respiratory effort, No retractions, No use of accessory muscles, clear to auscultation bilaterally and percussion normal AUSCULTATION: clear to auscultation bilaterally PERCUSSION: percussion normal Cardio: COMMON NORMALS: no JVD GI: COMMON NORMALS: Normal to inspection, nondistended, normoactive bowel sounds present, Soft to palpation, non-tender, No hepatosplenomegaly present, no masses and no bruits PALPATION: Yes Soft to palpation and Yes No hepatosplenomegaly present Extremity: COMMON NORMALS: normal to inspection, full ROM, capillary refill normal, no joint enlargement, no clubbing, cyanosis or edema, no calf tenderness and no pedal edema Neuro: COMMON NORMALS: patient oriented x3 SENSORIUM/ORIENTATION: Yes alert MENINGEAL SIGNS: Yes no meningeal signs Skin: COMMON NORMALS: no rashes or lesions noted, no wounds, turgor normal, no jaundice, no petechiae and no mottling GENERAL SKIN EXAM: no rashes or lesions noted and turgor normal Course Vital Signs: Vital signs: Vital Signs Temperature 98.3 F 07/26/23 13:19 Pulse Rate 705 H 07/26/23 20:27 Respiratory Rate 20 H 07/26/23 20:27 Blood Pressure 179/94 07/26/23 20:27 Pulse Oximetry 94 07/26/23 20:27 Oxygen Delivery Me thod Room Air 07/26/23 20:32 MDM - Chest Pain Medical Decision Making Patient made comfortable emergency room. Patient extensive work-up including CBC, CMP, CT abdomen and chest x-ray. Patient will be admitted for further evaluation and treatment. Contents of vomitus after multiple medication for nausea. Differential Diagnosis Likely acute massive pulmonary embolism, acute respiratory failure, acute myocardial infarction, cardiac arrest and sudden cardiac Lab Data 07/26/23 12:55 07/26/23 12:55 Laboratory Results WBC 13.86 10^3/uL (3.29-11.43) H 07/26/23 12:55 RBC 4.38 10^6/uL (3.85-5.65) 07/26/23 12:55 Hgb 11.30 g/dL (11.27-16.99) 07/26/23 12:55 Hct 35.4 % (36-47) L 07/26/23 12:55 MCV 80.8 fl (85-98) L 07/26/23 12:55 MCH 25.8 pg (27-33) L 07/26/23 12:55 MCHC 31.9 g/dL (30-55) 07/26/23 12:55 RDW 15.4 % (12.1-15.1) H 07/26/23 12:55 Plt Count 409 10^3/cmm (157-399) H 07/26/23 12:55 MPV 11.2 fL (7.4-10.4) H 07/26/23 12:55 Neut % (Auto) 74.1 % 07/26/23 12:55 Lymph % (Auto) 21.7 % 07/26/23 12:55 [place] % (Auto) 3.0 % 07/26/23 12:55 Eos % (Auto) 0.6 % 07/26/23 12:55 Baso % (Auto) 0.3 % 07/26/23 12:55 Neut # (Auto) 10.26 10^3/uL (1.8-7.7) H 07/26/23 12:55 Lymph # (Auto) 3.0 10^3/uL (0.8-4.8) 07/26/23 12:55 [place] # (Auto) 0.4 10^3/uL (0.2-0.9) 07/26/23 12:55 Eos # (Auto) 0.1 10^3/uL (0.0-0.8) 07/26/23 12:55 Baso # (Auto) 0.0 10^3/uL (0.0-0.1) 07/26/23 12:55 Nucleated RBC % (auto) 0 % 07/26/23 12:55 Nucleated RBCs # 0.0 /100WBC 07/26/23 12:55 PT 12.90 SECONDS (12.1-14.9) 07/26/23 12:55 INR 0.95 (0.8-1.2) 07/26/23 12:55 APTT 25.6 SECONDS (23.9-36.7) 07/26/23 12:55 Sodium 138 mmol/L (136-145) 07/26/23 12:55 Potassium 3.7 mmol/L (3.5-5.1) 07/26/23 12:55 Chloride 100 mmol/L (98-107) 07/26/23 12:55 Carbon Dioxide 20 mmol/L (22-29) L 07/26/23 12:55 Anion Gap 21.7 (5-19) H 07/26/23 12:55 BUN 23 mg/dL (8-23) 07/26/23 12:55 Creatinine 1.2 mg/dL (0.5-0.9) H 07/26/23 12:55 GFR Calculation Not Reportable 07/26/23 12:55 Glucose 280 mg/dL (65-115) H 07/26/23 12:55 Calculated Osmolality 300 mOsm/kg (285-295) H 07/26/23 12:55 Calcium 9.2 mg/dL (8.5-10.5) 07/26/23 12:55 Total Bilirubin 0.4 mg/dL (0.15-1.2) 07/26/23 12:55 AST 19 U/L (0-32) 07/26/23 12:55 ALT 8 U/L (0-33) 07/26/23 12:55 Alkaline Phosphatase 98 U/L (35-105) 07/26/23 12:55 Troponin T Baseline 13 ng/L (0-10) H 07/26/23 12:55 Troponin T 120 Minute 10.73 ng/L (0-10) H 07/26/23 15:00 Delta Troponin T -2.27 ABS# (0-10) L 07/26/23 15:00 Total Protein 7.5 g/dL (6.6-8.7) 07/26/23 12:55 Albumin 4.3 g/dL (3.5-5.2) 07/26/23 12:55 Globulin 3.2 g/dL (1.3-4.6) 07/26/23 12:55 Lipase 12 U/L (13-60) L 07/26/23 12:55 Urine Color Yellow (Yellow) 07/26/23 17: Urine Appearance Sl hazy (CLEAR) A 07/26/23: Urine pH 5 (5-7) 07/26/23: Ur Specific [place] 1.010 (1.005-1.030) 07/26/23: Urine Protein 1+ (Negative) H 07/26/23: Urine Glucose (UA) 4+ (Normal) H 07/26/23 17: Urine Ketones 2+ (Negative) H 07/26/23 17: Urine Blood 2+ (Negative) H 07/26/23 17: Urine Nitrate Negative (Negative) 07/26/23: Urine Bilirubin Neg (Negative) 07/26/23 17:23 Urine Urobilinogen Norm mg/dL (Negative) 07/26/23 17:23 Ur Leukocyte Esterase Negative (Negative) 07/26/23 17:23 Urine RBC 0-4 /hpf (0-2) H 07/26/23 17:23 Urine WBC None /hpf (0-5) 07/26/23 17:23 Ur Squamous Epith Cells Rare /hpf (0-5) 07/26/23 17:23 Amorphous Sediment Not Reportable 07/26/23 17:23 Urine Bacteria 1+ /hpf (NONE) H 07/26/23 17:23 XR interpretation done by ED provider, pending radiology final review EKG Data EKG 1: Interpretation: Sinus rhythm rate of 80 left bundle branch block CA interval 176 QRS duration [address] elevation. Discharge Plan Discharge Patient Disposition: Admitted As Inpatient Admit Provider: Denia Bearden Clinical Impression: Moderate nausea and vomiting, Obstipation, Chest pain at rest Condition: Stable Coding Level of Care Code ED Street Rol[employer] for [employer]
[2023-07-26] MEDS: ondansetron 2 mg/ML SDV 2 mL 4 MG IVP ×3 (13:59→21:22)
[2023-07-26] MEDS: sodium chloride 0.9% 1,000 ML 999 ML IV ×2 (14:00→18:40)
[2023-07-26] MEDS: morphine 4 mg/mL SDV 1 mL IVP (14:01)
[2023-07-26] MEDS: nitroglycerin 1 gm/inch oint Pkt 1 INCH TOPICAL (14:05)
[2023-07-26 14:18] LABS: Basophils % 0.3 %; Eosinophils # 0.1 10^3/uL (0.0-0.8); Eosinophils % 0.6 %; Hematocrit 35.4 % (36-47); Lymphocytes % 21.7 %; Mean Corpuscular HGB Conc 31.9 g/dL (30-55); Mean Corpuscular Hemoglobin 25.8 pg (27-33); Mean Corpuscular Volume 80.8 fl (85-98); Mean Platelet Volume 11.2 fL (7.4-10.4); Monocytes # 0.4 10^3/uL (0.2-0.9); Neutrophils # 10.26 10^3/uL (1.8-7.7); Neutrophils % 74.1 %; Nucleated Red Blood Cells % 0 %; Platelet Count 409 10^3/cmm (157-399); Red Blood Count 4.38 10^6/uL (3.85-5.65); Red Cell Distribution Width 15.4 % (12.1-15.1); White Blood Count 13.86 10^3/uL (3.29-11.43)
[2023-07-26 14:23] LABS: Alanine Aminotransferase 8 U/L (0-33); Albumin Level 4.3 g/dL (3.5-5.2); Alkaline Phosphatase 98 U/L (35-105); Blood Urea Nitrogen 23 mg/dL (8-23); Calcium 9.2 mg/dL (8.5-10.5); Carbon Dioxide 20 mmol/L (22-29); Chloride 100 mmol/L (98-107); Globulin 3.2 g/dL (1.3-4.6); Glucose 280 mg/dL (65-115); Lipase 12 U/L (13-60); Osmolality Calculated 300 mOsm/kg (285-295); Sodium 138 mmol/L (136-145); Total Bilirubin 0.4 mg/dL (0.15-1.2); Total Protein 7.5 g/dL (6.6-8.7)
--- NOTE | 2023-07-26 14:28 | CT_ITS ---
WS: [id number] CT ABDOMEN AND PELVIS NONCONTRAST HISTORY: nausea and vomiting TECHNIQUE: Imaging performed through the abdomen and pelvis. Coronal and sagittal reformats are submi tted. All CT scans at [facility] use at least one of these dose optimization techniques: auto mated exposure control; mA and/or kV adjustment per patient size (includes targeted exams where dose is matched to clinical indication); or iterative reconstruction. DLP: 468.28 mGy.cm COMPARISON: 03/27/2013 Lower thorax: Mild dependent changes at the lung bases. Mild cardiomegaly. Small hiatal hernia. Liver: Normal size liver. No mass or bile duct dilatation. Gallbladder: Normal gallbladder. No pericholecystic fluid or cholelithiasis. No gallbladder wall thic kening. Pancreas: Marked atrophy. Mildly ectatic common bile duct dilatation is similar to prior examinations . No obstructing mass. Spleen: Normal. Adrenal glands: Normal. No mass. Right kidney: Cortical scarring and thinning in calcifications. No change. Left kidney: Mild cortical scarring. No change or obstruction. Aorta: Mild atherosclerosis abdominal aorta with no aneurysm. Small amount of ascites in the pelvis. GI tract: Normal stomach. No small bowel obstruction. There is marked fecal retention and obstipation throughout the entire colon. There is diffuse wall thickening throughout the entire colon also wall thickening extends into the rectum. Abdominal wall: Negative. No hernia. Pelvis: Well-distended urinary bladder. Small amount of free fluid. Absent uterus. Osseous structures: Unremarkable. IMPRESSION: 1. Small amount of ascites in the pelvis. 2. Diffuse obstipation. There is diffuse mild wall thickening surrounding the obstipated colon. No a djacent inflammation. Suspect these findings are probably chronic. There is no mechanical obstructive pattern. 3. No free air.
[2023-07-26 14:32] LABS: INR 0.95 (0.8-1.2)
[2023-07-26 14:33] LABS: Anion Gap 21.7 (5-19); Aspartate Amino Transferase 19 U/L (0-32); Potassium 3.7 mmol/L (3.5-5.1)
[2023-07-26 14:34] LABS: Partial Thromboplastin Time 25.6 SECONDS (23.9-36.7)
[2023-07-26] MEDS: pantoprazole 40 mg SDV IVP (14:37)
[2023-07-26] MEDS: metoclopramide 5 mg/mL SDV 2 mL 10 MG IVP (14:37)
[2023-07-26 14:39] LABS: Troponin(5th) Baseline 13 ng/L (0-10)
[2023-07-26 15:25] LABS: Troponin 5 2HR 10.73 ng/L (0-10)
[2023-07-26 15:26] LABS: Troponin 5 2HR Delta -2.27 ABS# (0-10)
[2023-07-26 17:48] LABS: Bilirubin Urine Neg (Negative); Blood Urine 2+ (Negative); Glucose Urine UA 4+ (Normal); Ketones Urine 2+ (Negative); Leukocyte Esterase Urine Negative (Negative); Nitrate Urine Negative (Negative); Protein Urine 1+ (Negative); Urine Appearance SL Hazy (CLEAR); Urine Color Yellow (Yellow); Urobilinogen Urine Norm (Negative); pH Urine 5 (5-7)
[2023-07-26 17:49] LABS: Add Urine Microscopic? YES; Bacteria Urine 1+ /hpf; RBC Urine 0-4 /hpf (0-2); Squamous Epithelial Cell Urine RARE /hpf (0-5)
[2023-07-26] MEDS: mineral oil ENEMA 133 mL PR (18:02)
[2023-07-26] MEDS: promethazine 25 mg/mL SDV 1 mL IM (21:13)
--- NOTE | 2023-07-26 21:57 | PM.HP ---
Providers/Chief Complaint Admitting Physician: Denia Bearden MD Primary Care Provider: Jane Strickland MD Chief Complaint: Chest Pain/ NV/ Cardiac History History of Present Illness Evelyn Farley is a 77 year old female with history of coronary artery disease, diabetes mellitus, diabetic gastroparesis hiatal hernia neuropathy, fibromyalgia, hyperlipidemia, hypertension,obstipation, colitis presented with complaint of chest pain since 1 day. She describes chest pain as substernal burning associated with nausea and vomiting, also had diarrhea x1 this morning. There is no history of fever cold cough abdominal pain or urinary complaints. As per the family she ate tuna salad a day prior to admission. Since she came to the hospital she has been vomiting green bilious liquid associated with retching. On further interview she also complained of diffuse abdominal pain but no diarrhea at this time. Review of Systems Narrative: As per HPI Medications/Allergies Home Medications Medication Instructions Recorded Confirmed Last Taken Type blood-glucose meter #1 ea 11/19/19 07/26/23 Unknown Rx multivitamin 1 tab PO QAM 05/23/22 07/26/23 07/26/23 History aspirin 81 mg tablet,delayed 81 mg PO BEDTIME 30 days #30 tabs 09/11/22 07/26/23 07/25/23 Rx release (Adult Low Dose Aspirin) nitroglycerin 0.4 mg sublingual 0.4 mg sublingual Q5M PRN chest 09/11/22 07/26/23 Unknown Rx tablet pain #30 tabs blood sugar diagnostic (Accu-Chek #100 ea 10/01/22 07/26/23 Unknown Rx Merced Plus test strips) pen needle, diabetic 29 gauge x #100 ea 10/01/22 07/26/23 Unknown Rx 1/2 (1st Tier Unifine Pentips) blood sugar diagnostic (Accu-Chek #100 ea 11/28/22 07/26/23 Unknown Rx Merced Plus test strips) blood-glucose meter,continuous #1 ea 12/13/22 07/26/23 Unknown Rx (Dexcom G7 Loss Control Technician) blood-glucose sensor (Dexcom G7 #1 ea 12/13/22 07/26/23 Unknown Rx Sensor device) sumatriptan succinate 100 mg tablet See Rx Instructions PO .COMPLEX 03/20/23 07/26/23 Unknown Rx #14 tabs insulin aspart U-100 100 unit/mL See Rx Instructions .Route 05/22/23 07/26/23 07/26/23 Rx (3 mL) subcutaneous pen (Novolog .COMPLEX #15 mL FlexPen U-100 Insulin aspart) pen needle, diabetic 32 gauge x #100 ea 06/12/23 07/26/23 Unknown Rx 5/32 (TechLITE Pen Needle) insulin detemir U-100 100 unit/mL See Rx Instructions .Route 06/13/23 07/26/23 07/26/23 Rx (3 mL) subcutaneous pen (Levemir .COMPLEX #40 mL FlexPen) furosemide 40 mg tablet 40 mg PO DAILY@0800 #30 tabs 06/24/23 07/26/23 07/26/23 Rx ondansetron 4 mg disintegrating See Rx Instructions .Route 07/01/23 07/26/23 Unknown Rx tablet .COMPLEX #12 tabs hydrocodone 10 mg-acetaminophen 1 tab PO DAILY PRN pain 1 month 07/16/23 07/26/23 Unknown Rx 325 mg tablet #30 tabs hydrocodone 10 mg-acetaminophen 1 tab PO DAILY PRN pain 1 month 07/16/23 07/26/23 Unknown Rx 325 mg tablet #60 tabs hydrocodone 10 mg-acetaminophen 1 tab PO DAILY PRN pain 1 month 07/16/23 07/26/23 Unknown Rx 325 mg tablet #60 tabs albuterol sulfate 90 mcg/actuation 2 puff inhalation Q6H PRN 07/18/23 07/26/23 Unknown Rx aerosol inhaler shortness of breath or wheezing #8.5 grams amlodipine 10 mg tablet 10 mg PO QPM 07/26/23 07/26/23 07/25/23 History clopidogrel 75 mg tablet 75 mg PO QAM 07/26/23 07/26/23 07/26/23 History hydralazine 25 mg tablet 25 mg PO TID 07/26/23 07/26/23 07/26/23 History metoprolol tartrate 100 mg tablet 100 mg PO BID 07/26/23 07/26/23 07/26/23 History omeprazole 20 mg capsule,delayed 20 mg PO BID 07/26/23 07/26/23 07/26/23 History release ondansetron HCl 8 mg tablet 8 mg PO Q8H PRN Nausea 07/26/23 07/26/23 Unknown History potassium chloride 20 mEq 40 meq PO QAM 07/26/23 07/26/23 Unknown History tablet,extended release(part/cryst) (Klor-Con M) rosuvastatin 40 mg tablet 40 mg PO QPM 07/26/23 07/26/23 07/25/23 History Allergies Allergy/AdvReac Type Severity Reaction Status Date / Time gabapentin Allergy hallucinati Verified 07/16/23 14:11 ons Iodinated Contrast Media Allergy Unknown Verified 07/16/23 14:11 metronidazole Allergy ADR-Confusi Verified 07/16/23 14:11 on nifedipine [From Procardia] Allergy Unknown Verified 07/16/23 14:11 prochlorperazine Allergy Unknown Verified 07/16/23 14:11 [From Compazine] unknown antibiotic Allergy see comment Uncoded 07/16/23 14:11 PFSH Acute PFSH: Medical History Abdominal pain Abnormal blood sugar Abnormal TSH Abscess or cellulitis of foot Acidosis, lactic Acute maxillary sinusitis Acute respiratory failure with hypoxia AMY (acute kidney injury) Anxiety and depression ASHD (arteriosclerotic heart disease) Cataracts, bilateral Chest pain CKD (chronic kidney disease) Colitis Colitis Colitis Community acquired pneumonia Congestive heart failure Constipation Continuous severe abdominal pain Dehydration Diabetes Diabetic ketoacidosis Diabetic neuropathy Diabetic peripheral neuropathy Diverticulitis DKA (diabetic ketoacidosis) Edema Fibromyalgia Gastroparesis Glucose measurement between 50 mg/dl to 400mg/dl Gram-positive bacteremia History of recurrent UTI (urinary tract infection) Hospital discharge follow-up Hyperglycemia Hyperglycemia due to diabetes mellitus Hyperlipidemia Hypertension Hypertension Hypokalemia Hypokalemia Hyponatremia Hypophosphatemia Insomnia Intractable abdominal pain Intractable vomiting with nausea Left lower lobe pneumonia Left renal stone Left ureteral calculus Leukocytosis Leukocytosis Migraine Nausea and vomiting Nausea and vomiting Nausea, vomiting, and diarrhea Neuropathic pain NSTEMI (non-ST elevated myocardial infarction) Odynophagia Pneumonia Pyelonephritis Pyuria Right lower lobe pneumonia Sepsis Shingles Ureterolithiasis Urolithiasis UTI (urinary tract infection) Yeast vaginitis Surgical History H/O angioplasty H/O carpal tunnel repair H/O: hysterectomy History of cholecystectomy S/P ureteral stent placement Family History Mother , at age 65 Heart attack Father , at age 63 Heart attack Other Diabetes Hypertension Social History Smoking and tobacco/nicotine status: never used tobacco/nicotine Second hand smoke exposure: No Alcohol intake: never Substance/Drug Use: never Adopted: No Caregiver/support person: Yes (spouse) Lives independently: Yes Household members: spouse Marital status: service: No Current occupational status: retired Current gender identity: Female Special vandana needs: No Agree to transfusion: Yes Vitals/I&O/Wt Last Vital Signs Temp 98.3 F 07/26/23 13:19 Pulse 705 H 07/26/23 20:27 Resp 20 H 07/26/23 20:27 BP 179/94 07/26/23 20:27 Pulse Ox 94 07/26/23 20:27 O2 Del Method Room Air 07/26/23 20:32 07/26/23 07/26/23 07/26/23 06:59 14:59 22:59 Intake Total 1000 / 1000 Balance 1000 / 1000 Weight last 48 hrs Weight 64.41 kg Data 07/26/23 12:55 07/26/23 12:55 CT Abd/Pel: Radiologist's impression: IMPRESSION: 1.? Small amount of ascites in the pelvis. 2.? Diffuse obstipation. There is diffuse mild wall thickening surrounding the obstipated colon. No adjacent inflammation. Suspect these findings are probably chronic. There is no mechanical obstructive pattern. 3.? No free air. CXR: Radiologist's impression: atherosclerosis A&P Assessment and plan (1) Acute colitis: (2) Type 2 diabetes mellitus with hyperosmolar hyperglycemic state (HHS): (3) AMY (acute kidney injury): Plan 77 year old female with history of coronary artery disease, diabetes mellitus, diabetic gastroparesis hiatal hernia neuropathy, fibromyalgia, hyperlipidemia, hypertension,obstipation, colitis presented with complaint of chest pain nausea vomiting and diarrhea x1 and now has complaint of diffuse abdominal pain with leukocytosis likely secondary to acute gastroenteritis/diabetic gastroparesis/hyperglycemic hyperosmolar state given blood sugar of 283 and serum osmolality 300, urine ketones 2+ Acute gastroenteritis/gastroparesis Leukocytosis likely reactive, will hold off on antibiotics for now. Will start IV fluids normal saline at 100 mL/h Clear liquid diet for now IV Zofran 4 mg every 6 hours IV pantoprazole 40 mg every 12 hours Carafate 1 g, 5 mm twice a day Hyperglycemic hyperosmolar state Continue IV fluids Monitor fingerstick 3 times daily and bedtime Resume home medications including insulin Low-dose correction scale insulin Recheck labs in a.m. Subcutaneous Lovenox 30 mg daily for DVT prophylaxis She is DNR as per the , Greg Farley. Attestations Medical Necessity Statement*: She might need continued hospitalization for more than 2 days for IV fluids antibiotics and blood sugar control. Time Spent in Patient Care: 30 minutes Coding Level of Care Code Acute Code for [facility] Fwd Diagnoses Acute colitis K52.9 Type 2 diabetes mellitus with hyperosmolar hyperglycemic state (HHS) E11.00 AMY (acute kidney injury) N17.9 Time Spent (min) 30
[2023-07-26] MEDS: sodium chloride 0.9% 1,000 ML 100 ML IV (22:37)
[2023-07-26] MEDS: sucralfate 1 gm/10 mL Oral Liq UDC PO (22:37)
[2023-07-26] MEDS: enoxaparin 30 mg/0.3 mL Syringe SUBCUT (23:58)
[2023-07-26] MEDS: insulin glargine 100 units/1 mL 50 UNIT SUBCUT (23:58)
[2023-07-27] MEDS: ondansetron 2 mg/ML SDV 2 mL 4 MG IVP ×4 (00:05→20:46)
[2023-07-27] MEDS: HYDROmorphone 1 mg/mL INJ 1 mL 2 MG IVP (00:06)
[2023-07-27 04:00] VITALS: BP 163/83; PULSE 108; RESP 17; TEMP 36.6; O2SAT 95
[2023-07-27 04:36] LABS: Basophils % 0.1 %; Eosinophils % 0.1 %; Lymphocytes # 1.1 10^3/uL (0.8-4.8); Mean Corpuscular HGB Conc 30.3 g/dL (30-55); Mean Corpuscular Hemoglobin 25.5 pg (27-33); Mean Corpuscular Volume 84.2 fl (85-98); Mean Platelet Volume 11.8 fL (7.4-10.4); Monocytes # 0.4 10^3/uL (0.2-0.9); Monocytes % 3.7 %; Neutrophils # 8.71 10^3/uL (1.8-7.7); Neutrophils % 84.3 %; Nucleated Red Blood Cells % 0 %; Platelet Count 272 10^3/cmm (157-399); Red Blood Count 3.92 10^6/uL (3.85-5.65); Red Cell Distribution Width 15.9 % (12.1-15.1); White Blood Count 10.33 10^3/uL (3.29-11.43)
[2023-07-27 04:49] LABS: Alanine Aminotransferase 7 U/L (0-33); Albumin Level 4.1 g/dL (3.5-5.2); Alkaline Phosphatase 105 U/L (35-105); Anion Gap 19.4 (5-19); Aspartate Amino Transferase 11 U/L (0-32); Blood Urea Nitrogen 17 mg/dL (8-23); Calcium 8.3 mg/dL (8.5-10.5); Carbon Dioxide 21 mmol/L (22-29); Chloride 103 mmol/L (98-107); Glucose 390 mg/dL (65-115); Magnesium 1.9 mg/dL (1.7-2.3); Osmolality Calculated 308 mOsm/kg (285-295); Phosphorus 3.2 mg/dL (2.5-4.5); Potassium 3.4 mmol/L (3.5-5.1); Sodium 140 mmol/L (136-145); Total Bilirubin 0.3 mg/dL (0.15-1.2); Total Protein 7.1 g/dL (6.6-8.7)
[2023-07-27 05:02] LABS: NT Pro B Type Natriuretic Pept 2190 pg/mL (0-450)
[2023-07-27 05:34] LABS: Slide Review Slide Review Perform
[2023-07-27] MEDS: pantoprazole 40 mg SDV IVP ×2 (05:58→16:51)
[2023-07-27] MEDS: clopidogrel 75 mg Tablet PO (06:16)
[2023-07-27] MEDS: sucralfate 1 gm/10 mL Oral Liq UDC PO (06:16)
[2023-07-27] MEDS: potassium chloride ER 20 mEq Tablet 40 MEQ PO (06:17)
[2023-07-27 06:40] LABS: Glucose Point of Care 352 mg/dL (70-110)
[2023-07-27 08:55] VITALS: BP 162/66; PULSE 91; RESP 18; TEMP 36.9; O2SAT 97
[2023-07-27] MEDS: metoclopramide 5 mg/mL SDV 2 mL 10 MG IVP ×2 (09:19→16:51)
[2023-07-27] MEDS: bisacodyl 10 mg Supp PR (09:29)
[2023-07-27] MEDS: insulin glargine 100 units/1 mL 80 UNIT SUBCUT (09:36)
[2023-07-27 11:01] LABS: Base Excess VBG -3.3 mmol/L (-3.0-3.0); Blood Gas Sample Type Venous; HCO3 VBG 18.4 mmol/L (24-28); Oxygen Device ROOM AIR; PCO2 VBG 22.9 mmHg (41-51); Venous Blood Gas Hematocrit 32.6 % (37-47); pH VBG 7.51 (7.32-7.42)
--- NOTE | 2023-07-27 11:04 | XRR_ITS ---
PROCEDURE INFORMATION: Exam: XR Chest Exam date and time: 07/27/2023 11:19 AM Age: 77 years old Clinical indication: Device placement; Ng tube; Additional info: Verify ng tube placement TECHNIQUE: Imaging protocol: Radiologic exam of the chest. Views: 1 view. COMPARISON: CR XR chest 1V portable [id number] 07/26/2023 2:18 PM FINDINGS: Tubes, catheters and devices: Enteric tube terminates in the stomach. The distal fenestration of the enteric tube lies within the stomach. Lungs: Unremarkable. No consolidation. Pleural spaces: Unremarkable. No pleural effusion. No pneumothorax. Heart/Mediastinum: Unremarkable. No cardiomegaly. Vasculature: Mild calcification of the aortic knob. Bones/joints: Unremarkable. XR/XR chest 1V portable [id number] IMPRESSION: 1. Enteric tube terminates in the stomach. The distal fenestration of the enteric tube lies within the stomach. 2. No acute cardiopulmonary findings.
[2023-07-27 11:22] LABS: Anion Gap 21.1 (5-19); Blood Urea Nitrogen 16 mg/dL (8-23); Calcium 8.8 mg/dL (8.5-10.5); Carbon Dioxide 18 mmol/L (22-29); Chloride 103 mmol/L (98-107); Glucose 308 mg/dL (65-115); Osmolality Calculated 301 mOsm/kg (285-295); Potassium 3.1 mmol/L (3.5-5.1); Sodium 139 mmol/L (136-145)
[2023-07-27 11:26] LABS: Glucose Point of Care 300 mg/dL (70-110)
[2023-07-27 13:33] VITALS: BP 174/77; PULSE 92; RESP 18; TEMP 36.7; O2SAT 94
[2023-07-27] MEDS: sodium chloride 0.9% 1,000 ML 100 ML IV (14:10)
[2023-07-27] MEDS: magnesium sulfate premix 1 GM/100 ML PIGGYBACK IV (14:10)
[2023-07-27] MEDS: diphenhydrAMINE 50 mg/mL SDV 1mL 12.5 MG IVP (15:02)
[2023-07-27 16:55] LABS: Glucose Point of Care 256 mg/dL (70-110)
--- NOTE | 2023-07-27 16:58 | PM.PN ---
Subjective Subjective: dry heaving and vomiting small amounts of clear secretions. Vitals/I&O/Wt Last Vital Signs Temp 98.1 F 07/27/23 13:33 Pulse 92 07/27/23 13:33 Resp 18 07/27/23 13:33 BP 174/77 07/27/23 13:33 Pulse Ox 94 07/27/23 13:33 O2 Del Method Room Air 07/27/23 13:33 07/27/23 07/27/23 07/27/23 06:59 14:59 22:59 Intake Total 1000 / 2000 1000 / 1000 Output Total 0 / 100 Balance 1000 / 1900 1000 / 1000 Weight last 48 hrs Weight 64.41 kg Physical Exam Narrative: at bedside. Const: COMMON NORMALS: patient oriented x3 and alert GENERAL APPEARANCE: cooperative ORIENTATION/CONSCIOUSNESS: Yes awake OTHER: Uncomfortable, laying on her side, dry heaving into a basin. HENMT: COMMON NORMALS: oropharynx normal Neck/C-Spine: COMMON NORMALS: no JVD Resp: COMMON NORMALS: normal respiratory effort and clear to auscultation bilaterally AUSCULTATION: clear to auscultation bilaterally Cardio: COMMON NORMALS: no JVD, regular rhythm, S1 normal heart sound present, S2 normal heart sound present and No murmurs present (Cardio) RHYTHM: regular rhythm HEART SOUNDS: S1 normal heart sound present and S2 normal heart sound present GI: COMMON NORMALS: Normal to inspection, nondistended, normoactive bowel sounds present, Soft to palpation and non-tender PALPATION: Yes Soft to palpation Extremity: COMMON NORMALS: no joint enlargement and no pedal edema Neuro: COMMON NORMALS: patient oriented x3 and moves all extremities SENSORIUM/ORIENTATION: Yes alert Skin: COMMON NORMALS: no rashes or lesions noted GENERAL SKIN EXAM: no rashes or lesions noted Data 07/27/23 04:04 07/27/23 10:45 A&P Assessment and plan (1) Acute colitis: (2) Type 2 diabetes mellitus with hyperosmolar hyperglycemic state (HHS): (3) AMY (acute kidney injury): Plan 77 year old female with history of coronary artery disease, diabetes mellitus, diabetic gastroparesis hiatal hernia neuropathy, fibromyalgia, hyperlipidemia, hypertension,obstipation, colitis presented with complaint of chest pain nausea vomiting and diarrhea x1 and now has complaint of diffuse abdominal pain with leukocytosis likely secondary to acute gastroenteritis/diabetic gastroparesis/hyperglycemic hyperosmolar state given blood sugar of 283 and serum osmolality 300, urine ketones 2+ Acute gastritis/gastroparesis With severe symptoms, intractable nausea and vomiting. Unable to tolerate any oral intake. Continues to dry heave per her . Despite Zofran still having nausea vomiting, added Reglan, received but still nauseated and dry heaving. Small dose of Benadryl IV. Discussed with her and her placement of NGT. Obtained. Chest x-ray obtained. Reviewed. Placement appropriate on my interpretation. Continue to LIS. Continue Zofran, Reglan as needed. PPI IV twice daily. De-escalated diet NPO. Hyperglycemic hyperosmolar state, Question of mild DKA, requested VBG. pH over 7.51. Noted anion gap metabolic acidosis, combined acid-base disorder. Ketones in urine. Noted restarted on subcutaneous insulin. Continue Lantus, sliding scale insulin. Replace magnesium. We will recheck BMP. Continue IV fluids for dehydration. Reviewed Accu-Cheks. Continue to monitor. Severe obstipation: Dulcolax posterior administered. Noted had a bowel movement. Continue daily for now. Once able to tolerate add oral bowel regimen. Continue IV hydration. Subcutaneous Lovenox 30 mg daily for DVT prophylaxis DNR Attestations Medical Necessity Statement*: Continue admission for assessment management of gastritis/gastroparesis, intractable nausea and vomiting, severe constipation, dehydration, suspected mild DKA. Diagnoses Acute colitis K52.9 Type 2 diabetes mellitus with hyperosmolar hyperglycemic state (HHS) E11.00 AMY (acute kidney injury) N17.9
[2023-07-27 17:04] VITALS: BP 171/92; PULSE 112; RESP 19; TEMP 37; O2SAT 96
[2023-07-27 17:16] LABS: Anion Gap 19.6 (5-19); Blood Urea Nitrogen 14 mg/dL (8-23); Calcium 8.8 mg/dL (8.5-10.5); Carbon Dioxide 21 mmol/L (22-29); Chloride 102 mmol/L (98-107); Glucose 253 mg/dL (65-115); Osmolality Calculated 299 mOsm/kg (285-295); Sodium 140 mmol/L (136-145)
[2023-07-27 17:22] LABS: Potassium 2.6 mmol/L (3.5-5.1)
[2023-07-27] MEDS: lidocaine 1% 5 ML in potassium chloride premix 100 ML 26.25 ML IV ×2 (17:51→21:36)
[2023-07-27] MEDS: insulin lispro 100 unit/1 mL SUBCUT (18:42)
[2023-07-27] MEDS: insulin glargine 100 units/1 mL 50 UNIT SUBCUT (18:43)
[2023-07-27 20:00] VITALS: BP 170/82; PULSE 100; RESP 18; TEMP 37.5; O2SAT 96
[2023-07-27 20:46] LABS: Glucose Point of Care 179 mg/dL (70-110)
[2023-07-27] MEDS: ketorolac 30 mg/mL INJ IVP (20:46)
[2023-07-27 22:23] LABS: Blood Urea Nitrogen 13 mg/dL (8-23); Calcium 8.8 mg/dL (8.5-10.5); Carbon Dioxide 22 mmol/L (22-29); Chloride 103 mmol/L (98-107); Glucose 149 mg/dL (65-115); Osmolality Calculated 291 mOsm/kg (285-295); Sodium 139 mmol/L (136-145)
[2023-07-27 22:40] LABS: Glucose Point of Care 123 mg/dL (70-110)
[2023-07-27 23:58] VITALS: BP 165/80; PULSE 123; RESP 18; TEMP 37.3; O2SAT 95
[2023-07-28] VITALS (75 sets, daily range): BP systolic 94–168; BP diastolic 56–91; PULSE 80–126; RESP 0–24; TEMP 36.4–37.2; O2SAT 91–99
--- NOTE | 2023-07-28 00:36 | ECG_ITS ---
[facility] Test Date: 2023-07-28 Pat Name: Evelyn Farley Department: Room: 259 Gender: Female Artificial Intelligence Specialist: : 1945 Requested By: Denia Bearden Order Number: [id number] Beverley MD: Dhruv Clement M.D. Measurements Intervals [place] Rate: 137 P: 0 MN: 0 QRS: 3 QRSD: 137 T: 125 QT: 314 QTc: 475 Interpretive Statements ATRIAL FLUTTER/TACHYCARDIA WITH RAPID VENTRICULAR RESPONSE LEFT BUNDLE BRANCH BLOCK [120+ ms QRS DURATION, 80+ ms Q/S IN V1/V2, 85+ ms R IN I/aVL/V5/V6] INTERPRETATION BASED ON A DEFAULT AGE OF 40 YEARS Compared to ECG 07/26/2023 13:21:54 Sinus rhythm no longer present Electronically Signed On 07-28-2023 19:22:44 CDT by Dhruv Clement M.D. [id number]
[2023-07-28] MEDS: metoprolol tartrate 1 mg/1 mL SDV 5 mL 5 MG IVP ×2 (01:54→06:46)
[2023-07-28] MEDS: sodium chloride 0.9% 1,000 ML 100 ML IV ×2 (02:09→04:10)
--- NOTE | 2023-07-28 03:05 | XRR_ITS ---
PROCEDURE INFORMATION: Exam: XR Chest Exam date and time: 07/28/2023 3:20 AM Age: 77 years old Clinical indication: Device placement; Patient HX: Check S/P RT side picc; Additional info: Picc line placement TECHNIQUE: Imaging protocol: Radiologic exam of the chest. Views: 1 view. COMPARISON: CR (CHEST, ) 07/27/2023 11:19 AM FINDINGS: Tubes, catheters and devices: Right arm PICC line tip at the cavoatrial junction. Nasogastric tube in the stomach. The side port is in the area of the gastroesophageal junction. EKG monitoring leads overlie the thoracic wall. Lungs: Interim development of prominent interstitial markings as may be seen in fluid overload. Pleural spaces: No pleural effusion or pneumothorax. Heart/Mediastinum: Borderline cardiomegaly. Bones/joints: No acute fracture is identified. XR/XR chest 1V portable [id number] IMPRESSION: 1. Right arm PICC line tip at the cavoatrial junction. 2. Nasogastric tube in the stomach. The side port is in the area of the gastroesophageal junction. 3. Prominent interstitial markings, new from the comparison examination. These are favored to represent fluid overload/interstitial edema. Pneumonitis is considered less likely.
[2023-07-28 03:24] LABS: Glucose Point of Care 73 mg/dL (70-110)
--- NOTE | 2023-07-28 03:25 | PC.NURSE ---
Consulted for PICC placement by House Charge. Upon arrival pt is difficult to arouse and does not answer questions appropriately. Jeison (pts nurse) left message for spouse via telephone. Spouse calls back and Jeison and I explain procedure and answer questions for him. He reports that they requested a PICC on admission as she always has to have one. He gave verbal consent via telephone to both of us. Assessed RUE with US and noted basilic vein is good target at 4mm in diameter and free of evidence of thrombus or stenosis. Using US guidance, MST, and sterile technique the RUE basilic vein was accessed x 1 stick. Device fed easily. Both ports aspirate and flush easily. Device secured and dressed. EBL 5ml. Pt tolerated well. Chest xray ordered and pending. Device length 36 cm. Noted her RUE is 29 cm at 10 cm above the AC fossa. Noted had to stick higher on arm as [address] above the AC fossa.
--- NOTE | 2023-07-28 03:29 | XRR_ITS ---
PROCEDURE INFORMATION: Exam: XR Abdomen Exam date and time: 07/28/2023 4:08 AM Age: 77 years old Clinical indication: Abdominal pain; Generalized; Patient HX: Diffuse abd pain. Ng in place. ; Additional info: Rule out bowel obstruction TECHNIQUE: Imaging protocol: Radiologic exam of the abdomen. Views: Frontal supine view of the abdomen. 1 View. COMPARISON: CT abdomen pelvis con [id number] 07/26/2023 2:45 PM FINDINGS: Tubes, catheters and devices: Nasogastric tube in the stomach with the side port in the area of the gastroesophageal junction. Gastrointestinal tract: Moderate fecal stasis throughout the colon. There are no abnormally dilated loops of small bowel. Vasculature: Atherosclerotic calcification of the abdominal aorta. Bones/joints: Unremarkable. XR/XR abdomen 1V* [id number] IMPRESSION: 1. NG tube tip in the stomach with the side port in the area of the gastroesophageal junction. 2. Moderate fecal stasis consistent with constipation. 3. No evidence of small bowel obstruction.
[2023-07-28] MEDS: dextrose 5 % 500 ML 100 ML IV (03:30)
[2023-07-28] MEDS: morphine 4 mg/mL SDV 1 mL 2 MG IVP (04:09)
[2023-07-28] MEDS: pantoprazole 40 mg SDV IVP ×2 (04:09→17:27)
[2023-07-28] MEDS: meropenem 1,000 MG in sodium chloride 0.9% (plus) 50 ML 100 MG IV ×3 (04:09→21:30)
[2023-07-28 05:32] LABS: Glucose Point of Care 82 mg/dL (70-110)
[2023-07-28] MEDS: dextrose 50% syringe 50 mL IVP (05:39)
[2023-07-28] MEDS: FUROsemide 10 mg/mL SDV 2mL 20 MG IVP (05:39)
[2023-07-28 05:44] LABS: Basophils # 0.1 10^3/uL (0.0-0.1); Basophils % 0.2 %; Eosinophils % 0.1 %; Hematocrit 34.7 % (36-47); Lymphocytes # 2.8 10^3/uL (0.8-4.8); Lymphocytes % 13.3 %; Mean Corpuscular HGB Conc 30.5 g/dL (30-55); Mean Corpuscular Hemoglobin 25.4 pg (27-33); Mean Corpuscular Volume 83.2 fl (85-98); Monocytes # 1.1 10^3/uL (0.2-0.9); Monocytes % 5.4 %; Neutrophils # 16.86 10^3/uL (1.8-7.7); Neutrophils % 80.5 %; Nucleated Red Blood Cells % 0 %; Platelet Count 419 10^3/cmm (157-399); Red Blood Count 4.17 10^6/uL (3.85-5.65); Red Cell Distribution Width 16.2 % (12.1-15.1); White Blood Count 20.97 10^3/uL (3.29-11.43)
[2023-07-28 06:01] LABS: INR 1.07 (0.8-1.2)
[2023-07-28 06:07] LABS: Alanine Aminotransferase 6 U/L (0-33); Albumin Level 3.6 g/dL (3.5-5.2); Alkaline Phosphatase 94 U/L (35-105); Anion Gap 12.7 (5-19); Aspartate Amino Transferase 16 U/L (0-32); Blood Urea Nitrogen 12 mg/dL (8-23); Calcium 8.4 mg/dL (8.5-10.5); Carbon Dioxide 23 mmol/L (22-29); Chloride 103 mmol/L (98-107); Glucose 91 mg/dL (65-115); Osmolality Calculated 281 mOsm/kg (285-295); Sodium 136 mmol/L (136-145); Total Bilirubin 0.5 mg/dL (0.15-1.2); Total Protein 6.6 g/dL (6.6-8.7)
[2023-07-28 06:08] LABS: Lactate (Lactic Acid level) 1.2 mmol/L (0.5-2.2); Phosphorus 1.4 mg/dL (2.5-4.5)
[2023-07-28 06:09] LABS: Potassium 2.7 mmol/L (3.5-5.1)
--- NOTE | 2023-07-28 06:39 | W.PM.EVENTAC ---
Event Note Event Note: Patient had complained of severe abdominal pain last night for which she received 1 dose of IV Toradol 30 mg. She became lethargic and tachycardic at 130s at that point. Repeat EKG showed sinus tachycardia with left bundle branch block likely due to abdominal pain which was unchanged from admission. After 2 hours she was more awake comprehensive, but being tachycardic she was given 1 fluid bolus of 500 mL and IV metoprolol 5 mg stat. She was found to have a blood sugar of 73 and was started on D5 drip at 100 mL/h. At this point probability of sepsis was suspected and stat labs sent, she received 1 dose of IV meropenem 1 g, and abdominal x-ray .IMPRESSION: 1. ? NG tube tip in the stomach with the side port in the area of the gastroesophageal junction. 2. ? Moderate fecal stasis consistent with constipation. 3. ? No evidence of small bowel obstruction. ? PICC line placed on the right upper extremity. Follow-up chest x-ray done for PICC line showed interval pulmonary congestion/fluid overload. She received 1 dose of IV Lasix 20 mg and potassium 40 mEq IV for potassium of 2.7. At this time she is still tachycardic at 130s hence received second dose of IV metoprolol 5 mg stat. Diagnosis at this point is possible sepsis Needs cardiology consult in a.m. for repeat 2D echo Event Notes Attestations Time Spent in Patient Care: 4 hours
[2023-07-28 06:45] LABS: Glucose Point of Care 165 mg/dL (70-110)
[2023-07-28] MEDS: clopidogrel 75 mg Tablet PO (08:25)
[2023-07-28] MEDS: potassium chloride ER 20 mEq Tablet 40 MEQ PO (08:25)
[2023-07-28] MEDS: metoprolol tartrate 50 mg Tablet 100 MG PO ×2 (08:25→17:28)
[2023-07-28] MEDS: bisacodyl 10 mg Supp PR (08:25)
[2023-07-28] MEDS: lidocaine 1% 5 ML in potassium chloride premix 100 ML 26.25 ML IV (08:26)
[2023-07-28] MEDS: metoclopramide 5 mg/mL SDV 2 mL 10 MG IVP (09:31)
[2023-07-28] MEDS: ondansetron 2 mg/ML SDV 2 mL 4 MG IVP ×2 (09:31→17:34)
[2023-07-28 10:43] LABS: Glucose Point of Care 84 mg/dL (70-110)
--- NOTE | 2023-07-28 10:57 | ECG_ITS ---
[facility] Test Date: 2023-07-28 Pat Name: Evelyn Farley Department: Room: 259 Gender: Female Pants Closer: : 1945 Requested By: Jacky Mendiola Order Number: [id number] Beverley MD: Dhruv Clement M.D. Measurements Intervals [place] Rate: 103 P: 63 CT: 147 QRS: 11 QRSD: 126 T: 140 QT: 410 QTc: 537 Interpretive Statements SINUS TACHYCARDIA LEFT BUNDLE BRANCH BLOCK [120+ ms QRS DURATION, 80+ ms Q/S IN V1/V2, 85+ ms R IN I/aVL/V5/V6] Compared to ECG 07/28/2023 00:36:23 Atrial flutter no longer present Electronically Signed On 07-28-2023 19:23:44 CDT by Dhruv Clement M.D. [id number]
[2023-07-28] MEDS: dextrose 50% syringe 50 mL 25 ML IVP (10:58)
[2023-07-28 11:36] LABS: Glucose Point of Care 142 mg/dL (70-110)
[2023-07-28 11:50] LABS: Troponin(5th) Baseline 108 ng/L (0-10)
--- NOTE | 2023-07-28 12:39 | CTR_ITS ---
PROCEDURE INFORMATION: Exam: CT Chest Without Contrast; Diagnostic Exam date and time: 07/28/2023 1:12 PM Age: 77 years old Clinical indication: Abdominal pain; Chest pressure; Additional info: Possible sepsis, abdominal pain, chest pain TECHNIQUE: Imaging protocol: Diagnostic computed tomography of the chest without contrast. Radiation optimization: All CT scans at this facility use at least one of these dose optimization techniques: automated exposure control; mA and/or kV adjustment per patient size (includes targeted exams where dose is matched to clinical indication); or iterative reconstruction. REPORTING DATA: Count of CT and Cardiac NM exams in prior 12 months: This patient has received 8 known CTs and 0 known cardiac nuclear medicine studies in the 12 months prior to the current study. COMPARISON: CT chest wo con [id number] 06/22/2023 3:10 PM RADIATION DOSE METRICS: Total DLP (mGy-cm): 553.93 FINDINGS: Tubes, catheters and devices: Right upper extremity PICC terminates in the right atrium. Lungs: No focal consolidation. Scattered reticular and faint ground-glass opacities likely represent mild pulmonary edema. Pleural spaces: Small right and trace left pleural effusions. Heart: Heart is mildly enlarged. Coronary arteries: Coronary artery calcifications. Lymph nodes: Multiple sub threshold mediastinal lymph nodes. Multiple calcified right hilar lymph nodes. No suspicious lymphadenopathy. Vasculature: Scattered calcific disease of the aorta and its major branches. Bones/joints: Chronic left rib fracture deformities. Multilevel spondylosis. No acute osseous findings. Soft tissues: Superficial soft tissues are within normal limits. PROCEDURE INFORMATION: Exam: CT Abdomen And Pelvis Without Contrast Exam date and time: 07/28/2023 1:12 PM Age: 77 years old Clinical indication: Abdominal pain; Chest pressure; Additional info: Possible sepsis, abdominal pain, chest pain TECHNIQUE: Imaging protocol: Computed tomography of the abdomen and pelvis without contrast. Radiation optimization: All CT scans at this facility use at least one of these dose optimization techniques: automated exposure control; mA and/or kV adjustment per patient size (includes targeted exams where dose is matched to clinical indication); or iterative reconstruction. REPORTING DATA: Count of CT and Cardiac NM exams in prior 12 months: This patient has received 8 known CTs and 0 known cardiac nuclear medicine studies in the 12 months prior to the current study. COMPARISON: CT abdomen pelvis wo con [id number] 07/26/2023 2:45 PM RADIATION DOSE METRICS: Total DLP (mGy-cm): 553.93 FINDINGS: Tubes, catheters and devices: Enteric tube terminates within the stomach. Liver: The liver is unremarkable. Gallbladder and bile ducts: Gallbladder is absent. Common bile duct measures up to 1.3 cm in diameter, which can be normal post cholecystectomy. No intrahepatic biliary dilation. Pancreas: Moderate atrophy of the pancreas. Spleen: The spleen is unremarkable. Adrenal glands: The adrenal glands are unremarkable. Kidneys and ureters: Moderate bilateral renal atrophy. Multiple chronic calcifications in the posterior right kidney. No hydronephrosis or hydroureter. Stomach and bowel: Clumped appearance of stool, with mild surrounding large bowel wall thickening, throughout the majority of the ascending and transverse colons. This is minimally improved compared to 07/26/2023. Similar findings in the sigmoid colon and rectum have intervally resolved compared to 07/26/2023. Overall nonobstructive bowel gas pattern. Appendix: No evidence of acute appendicitis. Intraperitoneal space: Trace nonspecific free fluid in the abdomen and pelvis, significantly improved compared to 07/26/2023. Vasculature: Moderate scattered calcific disease of the aorta and its major branches. No abdominal aortic aneurysm. Lymph nodes: No suspicious lymphadenopathy. Urinary bladder: Cisneros catheter bulb appropriately positioned in the urinary bladder. Urinary bladder is otherwise within normal limits. Reproductive: Uterus is absent. Bones/joints: Mild diffuse osseous demineralization. No acute osseous findings. Soft tissues: Multiple tiny foci of air in the pre abdominal ventral soft tissues, consistent with recent injections. Fatty atrophy of the paraspinal musculature. CT/[place] [id number] IMPRESSION: 1. Small right and trace left pleural effusions. 2. Scattered reticular and faint ground-glass opacities likely represent mild pulmonary edema. IMPRESSION: 1. Trace nonspecific free fluid in the abdomen and pelvis, significantly improved compared to 07/26/2023. 2. Clumped appearance of stool, with mild surrounding large bowel wall thickening, throughout the majority of the ascending and transverse colons. This is stable to minimally improved compared to 07/26/2023. Similar findings in the sigmoid colon and rectum have intervally resolved compared to 07/26/2023. Differential includes obstipation and nonspecific colitis.
--- NOTE | 2023-07-28 12:46 | PC.NURSE ---
1030 - Pt blood sugar 84. Shakiness/confusion noted. , Kevin, states that she starts feeling it when she drops below 100. 25/ml of D50 given per protocol. Upon recheck 30 minutes later, pt BS is 164. Pt then starts complaining of chest pain. EKG and Troponin series ordered per Dr. Mendiola. Troponin critical at 108. Notified Dr. Mendiola. Pt is intermediate care at this time.
--- NOTE | 2023-07-28 13:00 | ECG_ITS ---
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 Measurements Intervals [place] Rate: 106 P: 63 SD: 136 QRS: 16 QRSD: 143 T: 135 QT: 412 QTc: 547 Interpretive Statements SINUS TACHYCARDIA LEFT BUNDLE BRANCH BLOCK [120+ ms QRS DURATION, 80+ ms Q/S IN V1/V2, 85+ ms R IN I/aVL/V5/V6] Compared to ECG 07/28/2023 11:32:25 No significant changes Electronically Signed On 07-28-2023 19:27:14 CDT by Dhruv Clement M.D. [email or web address].[email or web address]/store/[id number]
--- NOTE | 2023-07-28 13:13 | PC.NURSE ---
NG tube advanced [address] Mendiola orders. Air heard in stomach per auscultation. Suction on at low-int.
[2023-07-28 14:00] LABS: Glucose Point of Care 130 mg/dL (70-110)
[2023-07-28] MEDS: sucralfate 1 gm/10 mL Oral Liq UDC PO ×2 (14:05→21:52)
[2023-07-28] MEDS: FUROsemide 40 mg Tablet PO (14:05)
[2023-07-28] MEDS: aspirin 300 mg Supp 150 MG PR (14:09)
[2023-07-28] MEDS: enoxaparin 40 mg/0.4 mL Syringe SUBCUT (14:09)
--- NOTE | 2023-07-28 14:10 | P.PN_ITS ---
Subjective Subjective: Last night she was having abdominal pain. Received Toradol. Later in the evening also had an episode of lethargy. Difficult to arouse. Chest and abdominal x-rays were obtained. Blood studies obtained. Concern for possible sepsis. Received a dose of meropenem. Additionally hypoglycemia, was started on D5W. This morning feeling slightly better. Having some mild dyspnea. No chest pain. Later in the afternoon having some epigastric discomfort. Vitals/I&O/Wt Last Vital Signs Temp 97.5 F L 07/28/23 14:00 Pulse 106 H 07/28/23 14:00 Resp 16 07/28/23 14:00 BP 152/89 07/28/23 14:00 Pulse Ox 95 07/28/23 14:00 O2 Del Method Room Air 07/28/23 14:00 07/27/23 07/28/23 07/28/23 22:59 06:59 14:59 Intake Total 98.438 / 2184.336 0986.667 / 2555.105 500 / 500 Output Total 650 / 650 1500 / 1500 Balance 98.438 / 1098.438 806.667 / 1905.105 -1000 / -1000 Physical Exam Narrative: Reassessed over several visits. Family at bedside. Const: COMMON NORMALS: patient oriented x3 and alert GENERAL APPEARANCE: cooperative ORIENTATION/CONSCIOUSNESS: Yes awake HENMT: COMMON NORMALS: oropharynx normal Neck/C-Spine: COMMON NORMALS: no JVD Resp: COMMON NORMALS: normal respiratory effort and clear to auscultation bilaterally AUSCULTATION: clear to auscultation bilaterally Cardio: COMMON NORMALS: no JVD, regular rhythm, S1 normal heart sound present, S2 normal heart sound present and No murmurs present (Cardio) RHYTHM: regular rhythm HEART SOUNDS: S1 normal heart sound present and S2 normal heart sound present GI: COMMON NORMALS: Normal to inspection, nondistended, normoactive bowel sounds present, Soft to palpation and non-tender PALPATION: Yes Soft to palpation Extremity: COMMON NORMALS: no joint enlargement and no pedal edema Neuro: COMMON NORMALS: patient oriented x3 and moves all extremities SENSORIUM/ORIENTATION: Yes alert Skin: COMMON NORMALS: no rashes or lesions noted GENERAL SKIN EXAM: no rashes or lesions noted Urinary Catheter Management: Cisneros: Cath Placed During This Visit: yes Reason for Continuing Indwelling Catheter: Accurate Measurement of Urinary Output in Critically Ill Patients Urinary Catheter Date of Insertion: 07/28/23 Urinary Catheter Time of Insertion: 04:00 Data 07/28/23 05:35 07/28/23 05:35 Micro: Microbiology 07/28/23 11:10 Blood Culture - Preliminary Blood SPECIMEN COLLECTED 07/28/23 05:35 Blood Culture - Preliminary Blood SPECIMEN COLLECTED A&P Assessment and plan (1) Acute colitis: (2) Type 2 diabetes mellitus with hyperosmolar hyperglycemic state (HHS): (3) AMY (acute kidney injury): Plan 77 year old female with history of coronary artery disease, diabetes mellitus, diabetic gastroparesis hiatal hernia neuropathy, fibromyalgia, hyperlipidemia, hypertension,obstipation, colitis presented with complaint of chest pain nausea vomiting and diarrhea x1 and now has complaint of diffuse abdominal pain with leukocytosis likely secondary to acute gastroenteritis/diabetic gastroparesis/hyperglycemic hyperosmolar state given blood sugar of 283 and serum osmolality 300, urine ketones 2+ Last night abdominal pain, received Toradol. Episode of lethargy, improved. Noted worsening leukocytosis 20.97. She is afebrile. Sound sinus tachycardia. Last night had some runs of atrial fibrillation with RVR. Given IV metoprolol. Later this afternoon having some epigastric pain, close to inferior sternum. Requested EKG, troponin series. She has had additional bowel movement. Still abdominal discomfort. Discussed with her regarding obtaining CT scanning. Initially planned with contrast, however, states she is severely allergic to contrast even with premedication had a near experience. Request not to perform contrast dye. Requested plain CT chest abdomen pelvis. Reviewed results, discussed with them. Possible sepsis: Severe constipation, suspected stercoral colitis. Blood cultures have been collected. Lactic acid reviewed. Received a dose of meropenem. Additionally reticular and faint groundglass opacities, possibly aspiration pneumonitis following the vomiting. Possible aspiration pneumonia given leukocytosis, some dyspnea. Will check COVID-19 PCR as well as per discussion. At this time we will continue meropenem 1000 mg every 8 hours. Hypoglycemia: Last night blood glucose soft down to 70s. Insulin held this morning. Has been on D5W. We will switch to D10 given some concerns for possibility of fluid overload/pulmonary edema. Stop normal saline. Acute gastritis/gastroparesis With severe symptoms, intractable nausea and vomiting. Unable to tolerate any oral intake. Nausea and vomiting so far have improved. Severe constipation: With stercoral colitis, pseudoobstruction with severe nausea vomiting, intolerance of oral intake. NGT in place to LIS clamped now. X-ray reviewed. Requested to advance NGT 5-10 cm. Noted termination of stomach on CT. Vomiting so far improved. Continue to work on constipation. Received Dulcolax suppository. Discussed with them giving an enema. Repeat Dulcolax in the morning. Add MiraLAX. Received IV hydration. Severe hypokalemia: Received replacement. Recheck potassium level. Hypophosphatemia: Ordered replacement. Follow-up potassium level. Hypomagnesemia: Reviewed magnesium, has been replaced. Recheck level. Hyperglycemic hyperosmolar state, Question of mild DKA, requested VBG. pH over 7.51. Reviewed chemistry, bicarb improved to 23. And gap resolved down to 12.7. Hypoglycemic last night, long-acting insulin had to be held. Continue sliding scale insulin. Follow-up BMP requested. A-fib with RVR: Had a run of A-fib with RVR last night. Received IV metoprolol. Hypokalemia most likely trigger. Replaced. Recheck. Magnesium reviewed, has been replaced. Noted moderate troponin elevation, discussed with her and family. Free of chest pain. May benefit from anticoagulation for stroke risk reduction although at the moment noted some acute anemia. Reassess blood counts. Will obtain TTE. Continue p.o. metoprolol. Moderate troponin elevation: After epigastric discomfort this morning, assessment for possible AMI. Troponin ~106. On my interpretation EKG with mild sinus tachycardia. Noted old LBBB. Noted after A-fib with RVR last night. So far without troponin rise. Free of chest pain. Suspected demand ischemia. Possible underlying coronary disease would benefit from further assessment nonurgently with stress test after acute illness. For now assess with TTE. Goals of care: She would not want ICU admission or pacemaker. Is not on comfort measures. CODE STATUS adjusted. Subcutaneous Lovenox DVT prophylaxis DNR Attestations Medical Necessity Statement*: Continue admission for assessment management of?severe constipation with pseudoo bstruction, stercoral colitis, aspiration pneumonitis, possible pneumonia, gastritis/gastroparesis, severe constipation, dehydration, hypoglycemia severe electrolyte deficiency, paroxysmal A-fib with RVR, troponin elevation. Diagnoses Acute colitis K52.9 Type 2 diabetes mellitus with hyperosmolar hyperglycemic state (HHS) E11.00 AMY (acute kidney injury) N17.9
[2023-07-28] MEDS: dextrose 10% 1,000 ML 50 ML IV ×2 (14:11→23:05)
--- NOTE | 2023-07-28 14:54 | USCV_ITS ---
Evelyn Farley Age: 77 Gender: F : 1945 Exam Date: 07/28/2023 15:54 Ordering Phys: Jacky Mendiola MD Technologist: Donovan Israel [place] [facility] [place]: elevated trop BP: 152 / 89 HR: 108 Rhythm: Sinus Technical Quality: Adequate MEASUREMENTS (Male / Female) Normal Values 2D ECHO LV Ejection Fraction MOD 2C 34.9 % LV Ejection Fraction 2C AL 33.6 % LA Diameter 3.2 cm LA Width 3.1 cm LA Height 3.8 cm RA Width 2.9 cm RA Height 3.4 cm Aorta at Sinotubular Diameter 2.3 cm IVC Diameter 1.9 cm M-MODE Aortic Annulus Diameter 2.3 cm LA Ao Ratio MM 1.3 MV E Point Septal Separation 0.6 cm DOPPLER AV Peak Velocity 119.0 cm/s LVOT Peak Velocity 69.0 cm/s MV E' Velocity 2.0 cm/s TR Peak Velocity 146.2 cm/s TR Peak Gradient 8.6 mmHg TR Mean Velocity 109.2 cm/s TR Mean Gradient 5.2 mmHg TR Velocity Time Integral 29.1 cm Right Atrial Pressure 3.0 mmHg Pulmonary Artery Systolic Pressu 11.6 mmHg PV Peak Velocity 106.0 cm/s RV Acceleration Time 0.1 s RV Ejection Time 0.2 s RV AcT/ET 0.5 FINDINGS Left Ventricle Diffuse hypokinesia left-ventricular somewhat dyskinetic apex. LV ejection fraction around 34%. Mildly dilated LV cavity Right Ventricle Normal right ventricular size and systolic function. Right Atrium Possibly of normal size Left Atrium Possibly of normal size Mitral Valve Thickened mitral valve. Mild mitral annular calcification. Mild mitral valve regurgitation. Aortic Valve No gross abnormalities noted Tricuspid Valve Trace tricuspid valve regurgitation. Pulmonic Valve Pulmonic valve not well visualized. Pericardium Normal pericardium without effusion. Aorta Normal ascending aorta dimension. IVC Normal inferior vena cava. CONCLUSIONS Diffuse hypokinesia left-ventricular somewhat dyskinetic apex. LV ejection fraction around 34%. Thickened mitral valve. Mild mitral annular calcification. Mild mitral valve regurgitation. Trace tricuspid valve regurgitation. Mildly dilated LV cavity. There is no pericardial effusion. Compared to the study from 09/07/2022, there is significant drop in the LV ejection fraction from 45-50% to 34% Dr Dhruv Clement MD FACC (Electronically Signed) Final Date: 28 July 2023 18:36 S
[2023-07-28 15:49] LABS: Glucose Point of Care 191 mg/dL (70-110)
--- NOTE | 2023-07-28 17:00 | ECG_ITS ---
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 Measurements Intervals [place] Rate: 107 P: 64 HI: 136 QRS: 9 QRSD: 134 T: 145 QT: 394 QTc: 526 Interpretive Statements SINUS TACHYCARDIA WITH OCCASIONAL SUPRAVENTRICULAR PREMATURE COMPLEXES INTRAVENTRICULAR CONDUCTION DELAY [130+ ms QRS DURATION] Compared to ECG 07/28/2023 13:01:12 Intraventricular conduction delay now present Left bundle-branch block no longer present Electronically Signed On 07-28-2023 19:27:24 CDT by Dhruv Clement M.D. [id number]
[2023-07-28] MEDS: amlodipine 10 mg Tablet PO (17:28)
[2023-07-28] MEDS: polyethylene glycol 3350 Pkt 17 gm PO (17:28)
[2023-07-28] MEDS: phosphorus 250 mg Tablet PO (17:28)
[2023-07-28] MEDS: atorvastatin 40 mg Tablet PO (17:28)
[2023-07-28] MEDS: insulin lispro 100 unit/1 mL SUBCUT (17:34)
[2023-07-28 17:39] LABS: Glucose Point of Care 228 mg/dL (70-110)
[2023-07-28 17:53] LABS: Troponin 5 6HR 94.11 ng/L (0-10)
[2023-07-28 18:01] LABS: Anion Gap 17.9 (5-19); Blood Urea Nitrogen 12 mg/dL (8-23); Calcium 8.6 mg/dL (8.5-10.5); Carbon Dioxide 22 mmol/L (22-29); Chloride 98 mmol/L (98-107); Glucose 238 mg/dL (65-115); Osmolality Calculated 288 mOsm/kg (285-295); Sodium 135 mmol/L (136-145)
[2023-07-28 18:05] LABS: Potassium 2.9 mmol/L (3.5-5.1)
[2023-07-28 18:53] LABS: Thyroid Stimulating Hormone 1.12 uIU/mL (0.27-4.20)
[2023-07-28 19:05] LABS: Adenovirus Detected (NOT DETECT); Chlamydia Pneumoniae Not Detected (NOT DETECT); Coronavirus 229E,HKU1,NL63,OC4 Not Detected (NOT DETECT); Human Metapneumovirus Not Detected (NOT DETECT); Human Rhinovirus/Enterovirus Not Detected (NOT DETECT); Influenza A Not Detected (NOT DETECT); Influenza A H1 Not Detected (NOT DETECT); Influenza A H1-2009 Not Detected (NOT DETECT); Influenza A H3 Not Detected (NOT DETECT); Influenza B Not Detected (NOT DETECT); Mycoplasma Pneumoniae Not Detected (NOT DETECT); Parainfluenza Virus Type 1 Not Detected (NOT DETECT); Parainfluenza Virus Type 2 Not Detected (NOT DETECT); Parainfluenza Virus Type 3 Not Detected (NOT DETECT); Parainfluenza Virus Type 4 Not Detected (NOT DETECT); Respiratory Syncytial Virus A Not Detected (NOT DETECT); Respiratory Syncytial Virus B Not Detected (NOT DETECT); SARS-COV-2 Not Detected (NOT DETECT)
[2023-07-28 19:22] LABS: Ketone (Acetest) Serum Negative (Negative)
[2023-07-28 19:23] LABS: Lactate (Lactic Acid level) 1.3 mmol/L (0.5-2.2)
[2023-07-28 19:28] LABS: Adenovirus Detected (NOT DETECT); Results from GEN
[2023-07-28 20:41] LABS: Glucose Point of Care 221 mg/dL (70-110)
--- NOTE | 2023-07-28 21:09 | PC.NURSE ---
transfer of care this nurse waited on day nurse to call report and transported pt with pt belongings to ICU.
[2023-07-28] MEDS: sodium chloride 0.9% 1,000 ML 50 ML IV (21:31)
[2023-07-28 21:38] LABS: Cortisol Random 29.19 ug/dL (2.47-19.5)
[2023-07-28] MEDS: potassium phosphate (mEq K) 40 MEQ in sodium chloride 0.9% (100 ml) 100 ML 27.27 MEQ IV (21:51)
[2023-07-28 22:34] LABS: Glucose Point of Care 185 mg/dL (70-110)
[2023-07-28] MEDS: acetaminophen 1,000 MG/100 ML PIGGYBACK 400 MG IV (23:05)
[2023-07-28 23:07] LABS: Glucose Point of Care 145 mg/dL (70-110)
[2023-07-28] MEDS: insulin regular-human 250 UNIT in sodium chloride 0.9% 250 ML 6 UNIT IV (23:09)
[2023-07-28 23:10] LABS: Anion Gap 15.2 (5-19); Blood Urea Nitrogen 12 mg/dL (8-23); Calcium 8.1 mg/dL (8.5-10.5); Carbon Dioxide 24 mmol/L (22-29); Chloride 100 mmol/L (98-107); Glucose 162 mg/dL (65-115); Osmolality Calculated 285 mOsm/kg (285-295); Potassium 3.2 mmol/L (3.5-5.1); Sodium 136 mmol/L (136-145)
--- NOTE | 2023-07-28 23:14 | PC.NURSE ---
Order for Insulin Drip received. Blood glucose taken, Blood glucose was 143. Physician notified of blood glucose and patients recent history of hypoglycemia. Order received to continue with insulin drip.
[2023-07-29] VITALS (285 sets, daily range): BP systolic 85–136; BP diastolic 49–98; PULSE 61–105; RESP 5–29; TEMP 36.9–37.1; O2SAT 89–100
[2023-07-29 00:14] LABS: Glucose Point of Care 190 mg/dL (70-110)
[2023-07-29 00:58] LABS: Glucose Point of Care 136 mg/dL (70-110)
[2023-07-29 02:02] LABS: Glucose Point of Care 136 mg/dL (70-110)
[2023-07-29 03:04] LABS: Glucose Point of Care 174 mg/dL (70-110)
[2023-07-29] MEDS: meropenem 1,000 MG in sodium chloride 0.9% (plus) 50 ML 100 MG IV ×3 (03:56→20:06)
[2023-07-29 04:07] LABS: Glucose Point of Care 171 mg/dL (70-110)
[2023-07-29 04:17] LABS: Basophils % 0.3 %; Eosinophils % 0.1 %; Hematocrit 37.7 % (36-47); Lymphocytes # 4.1 10^3/uL (0.8-4.8); Lymphocytes % 26.5 %; Mean Corpuscular HGB Conc 30.5 g/dL (30-55); Mean Corpuscular Hemoglobin 25.3 pg (27-33); Mean Platelet Volume 10.6 fL (7.4-10.4); Monocytes # 0.9 10^3/uL (0.2-0.9); Monocytes % 5.8 %; Neutrophils # 10.31 10^3/uL (1.8-7.7); Neutrophils % 66.8 %; Nucleated Red Blood Cells % 0 %; Platelet Count 322 10^3/cmm (157-399); Red Blood Count 4.54 10^6/uL (3.85-5.65); Red Cell Distribution Width 15.9 % (12.1-15.1); White Blood Count 15.42 10^3/uL (3.29-11.43)
[2023-07-29 04:41] LABS: Chloride 98 mmol/L (98-107)
[2023-07-29 04:54] LABS: Glucose Point of Care 147 mg/dL (70-110)
[2023-07-29 04:56] LABS: Sodium 136 mmol/L (136-145)
[2023-07-29 05:03] LABS: Blood Urea Nitrogen 13 mg/dL (8-23); Calcium 8.1 mg/dL (8.5-10.5); Carbon Dioxide 26 mmol/L (22-29); Glucose 136 mg/dL (65-115); Magnesium 1.8 mg/dL (1.7-2.3); Osmolality Calculated 284 mOsm/kg (285-295); Phosphorus 2.9 mg/dL (2.5-4.5)
[2023-07-29 05:06] LABS: Anion Gap 15.3 (5-19); Potassium 3.3 mmol/L (3.5-5.1)
[2023-07-29] MEDS: clopidogrel 75 mg Tablet PO (05:07)
[2023-07-29] MEDS: sucralfate 1 gm/10 mL Oral Liq UDC PO ×3 (05:07→20:06)
[2023-07-29] MEDS: pantoprazole 40 mg SDV IVP ×2 (05:07→17:14)
[2023-07-29 05:18] LABS: ABG PCO2 40.1 mmHg (35-45); ABG PH Result 7.49 (7.35-7.45); Arterial Blood Gas Hematocrit 32.9 % (37-47); Base Excess ABG 6.4 mmol/L (-2.0-2.0); Blood Gas Sample Site Brachial, left; Blood Gas Sample Type Arterial; HCO3 ABG 30.3 mmol/L (22-26); PO2 ABG 64.7 mmHg (80.0-100.0)
--- NOTE | 2023-07-29 06:07 | PC.NURSE ---
Eloisa Raman 40 meq held for 0600, per Dr. Bearden.
[2023-07-29 06:13] LABS: Glucose Point of Care 165 mg/dL (70-110)
[2023-07-29 07:40] LABS: Glucose Point of Care 126 mg/dL (70-110)
[2023-07-29] MEDS: phosphorus 250 mg Tablet PO ×2 (08:37→17:13)
[2023-07-29] MEDS: polyethylene glycol 3350 Pkt 17 gm PO (08:37)
[2023-07-29] MEDS: metoprolol tartrate 50 mg Tablet 100 MG PO ×2 (08:37→17:13)
[2023-07-29] MEDS: aspirin 300 mg Supp 150 MG PR (08:37)
[2023-07-29] MEDS: bisacodyl 10 mg Supp PR (08:37)
[2023-07-29] MEDS: FUROsemide 40 mg Tablet PO (08:37)
[2023-07-29 08:55] LABS: Glucose Point of Care 142 mg/dL (70-110)
[2023-07-29 09:37] LABS: Potassium 2.9 mmol/L (3.5-5.1)
[2023-07-29] MEDS: lidocaine 1% 5 ML in potassium chloride premix 100 ML 25 ML IV (09:57)
[2023-07-29 10:08] LABS: Glucose Point of Care 136 mg/dL (70-110)
[2023-07-29] MEDS: enoxaparin 40 mg/0.4 mL Syringe SUBCUT (10:59)
--- NOTE | 2023-07-29 11:07 | PC.SOCIAL ---
IMM Update IMM updated with patient's . Verbalized understanding. Copy provided and placed in chart.
[2023-07-29 11:11] LABS: Glucose Point of Care 109 mg/dL (70-110)
[2023-07-29] MEDS: ondansetron 2 mg/ML SDV 2 mL 4 MG IVP (11:16)
[2023-07-29] MEDS: dextrose 10% 1,000 ML 50 ML IV (11:51)
[2023-07-29 12:39] LABS: Troponin T (5th) Once 139 ng/L (0-10)
[2023-07-29 13:01] LABS: Glucose Point of Care 128 mg/dL (70-110)
[2023-07-29 13:52] LABS: Glucose Point of Care 141 mg/dL (70-110)
[2023-07-29] MEDS: insulin lispro 100 unit/1 mL SUBCUT ×2 (14:02→20:06)
[2023-07-29] MEDS: potassium chloride ER 20 mEq Tablet 40 MEQ PO (14:02)
[2023-07-29] MEDS: insulin glargine 100 units/1 mL 10 UNIT SUBCUT (14:02)
[2023-07-29] MEDS: HYDROcodone-acetaminophen 10-325 mg Tablet 1 TAB PO ×2 (14:12→22:49)
[2023-07-29] MEDS: sodium chloride 0.9% 1,000 ML 75 ML IV (14:40)
[2023-07-29 14:49] LABS: Anion Gap 11.7 (5-19); Blood Urea Nitrogen 13 mg/dL (8-23); Calcium 7.9 mg/dL (8.5-10.5); Carbon Dioxide 28 mmol/L (22-29); Chloride 100 mmol/L (98-107); Glucose 145 mg/dL (65-115); Osmolality Calculated 285 mOsm/kg (285-295); Potassium 3.7 mmol/L (3.5-5.1); Sodium 136 mmol/L (136-145)
--- NOTE | 2023-07-29 14:49 | P.PN_ITS ---
Subjective Subjective: Hospital course, labs appreciated. Today morning when seen in ICU patient has an NG tube in place which is clamped. Patient states she does not have any further nausea, denies any abdominal pain currently. Did have a bowel movement earlier today morning. Blood work shows a white count of 15.4 which seems to be resolving, hemoglobin of 11.5, platelet of 322, appreciate ABG, CMP showing potassium of 3.3, creatinine of 1.2, sodium of 136 Vitals/I&O/Wt Last Vital Signs Temp 98.5 F 07/29/23 07:05 Pulse 76 07/29/23 11:25 Resp 29 H 07/29/23 11:25 BP 101/51 07/29/23 11:25 Pulse Ox 98 07/29/23 11:25 O2 Del Method Room Air 07/29/23 11:20 07/28/23 07/29/23 07/29/23 22:59 06:59 14:59 Intake Total 100 / 657.365 105.4089 / 1371.2726 1785.850 / 1785.850 Output Total 300 / 1800 700 / 700 Balance 100 / -842.324 996.7924 / -428.7274 1085.850 / 1085.850 Physical Exam Const: COMMON NORMALS: patient oriented x3 and alert GENERAL APPEARANCE: cooperative ORIENTATION/CONSCIOUSNESS: Yes awake HENMT: COMMON NORMALS: oropharynx normal Neck/C-Spine: COMMON NORMALS: no JVD Resp: COMMON NORMALS: normal respiratory effort and clear to auscultation bilaterally AUSCULTATION: clear to auscultation bilaterally Cardio: COMMON NORMALS: no JVD, regular rhythm, S1 normal heart sound present, S2 normal heart sound present and No murmurs present (Cardio) RHYTHM: regular rhythm HEART SOUNDS: S1 normal heart sound present and S2 normal heart sound present GI: COMMON NORMALS: Normal to inspection, nondistended, normoactive bowel sounds present, Soft to palpation and non-tender PALPATION: Yes Soft to palpation Extremity: COMMON NORMALS: no joint enlargement and no pedal edema Neuro: COMMON NORMALS: patient oriented x3 and moves all extremities SENSORIUM/ORIENTATION: Yes alert Skin: COMMON NORMALS: no rashes or lesions noted GENERAL SKIN EXAM: no rashes or lesions noted Urinary Catheter Management: Cisneros: Cath Placed During This Visit: yes Reason for Continuing Indwelling Catheter: Accurate Measurement of Urinary Out put in Critically Ill Patients Urinary Catheter Date of Insertion: 07/28/23 Urinary Catheter Time of Insertion: 04:00 Data 07/29/23 03:19 07/29/23 14:08 Micro: Microbiology 07/28/23 11:10 Blood Culture - Preliminary Blood NEGATIVE TO DATE 07/28/23 05:35 Blood Culture - Preliminary Blood NEGATIVE TO DATE A&P Assessment and plan (1) Acute colitis: (2) Type 2 diabetes mellitus with hyperosmolar hyperglycemic state (HHS): (3) AMY (acute kidney injury): (4) Moderate nausea and vomiting: (5) Obstipation: (6) Hypertension: (7) ASHD (arteriosclerotic heart disease): Plan 77 year old female with history of coronary artery disease, diabetes mellitus, diabetic gastroparesis hiatal hernia neuropathy, fibromyalgia, hyperlipidemia, hypertension,obstipation, colitis presented with complaint of chest pain nausea vomiting and diarrhea x1 and now has complaint of diffuse abdominal pain with leukocytosis likely secondary to acute gastroenteritis/diabetic gastroparesis/hyperglycemic hyperosmolar state given blood sugar of 283 and serum osmolality 300, urine ketones 2+ Nausea and vomiting: NG tube in place. Patient on bowel rest. Patient CT abdomen pelvis results appreciated. Consistent with severe constipation and obstipation along with possible stercoral colitis. Patient does have history of diabetic gastroparesis. Cannot rule out in setting of non-ST elevation VT. Start on clear liquid diet. Keep NG tube in place. If has no nausea or vomiting will DC NG tube. Reglan 10 mg every 6 hours. Zofran as needed. Non-ST elevation VT: Troponin cycle negative baseline troponin of 108 on 07/26 while on admission was 13. Repeat baseline troponin to morning labs. Reviewed cardiac angiogram from 2021 in which patient had severe mid LAD stenosis s/p successful revascularization with JALEN x1, mid LAD treated with balloon and drug-eluting stent, severe distal left circumflex/left PDA stenosis post successful revascularization with balloon angioplasty but no stent was placed because of small vessel. Repeat echocardiogram done during this hospitalization shows a new low EF of 34% , dyskinetic apex with diffuse hypokinesia of left ventricle, trace TR, mildly dilated 2 LV cavity. Continue with aspirin, Plavix, beta-arlette. Switch to full dose Lovenox 1 mg/kg body weight every 12 hourly. Appreciate recent A1c and lipid panel. We will plan for Lexiscan stress test within next 24 hours. Cardiology consultation as per stress test results for possible cardiac angiogram. HHS: Blood sugars are well controlled. No anion gap. Replete potassium. Repeat BMP in evening. Stop insulin drip. Switch to insulin sliding scale at low-dose protocol along with Lantus 10 units every morning. Patient is supposed to be on insulin sliding scale with Lantus 60 units twice daily. Monitor blood sugars. Switch from D10 to normal saline in 2 hours after stopping insulin drip. Monitor for hypoglycemia. Severe constipation: With stercoral colitis, pseudoobstruction with severe nausea vomiting, intolerance of oral intake. Continue with aggressive bowel regimen. Milk of mag, senna Colace. NGT in place to LIS clamped now. X-ray reviewed. Requested to advance NGT 5-10 cm. Noted termination of stomach on CT. Vomiting so far improved. Continue to work on constipation. Received Dulcolax suppository. Discussed with them giving an enema. Repeat Dulcolax in the morning. Add MiraLAX. Received IV hydration. Severe hypokalemia: Serum and phosphorus daily. Repleted. Repeat BMP in evening. Monitor manage Goals of care discussion: Discussed in detail with patient. She states she was DNR/DNI otherwise okay with cardiac angiogram or ICU treatment if needed. will be the DPOA. DNR/DNI Clear liquid diet, n.p.o. after midnight Full dose Lovenox will suffice as DVT prophylaxis Protonix for PUD prophylaxis. Attestations Medical Necessity Statement*: Requires further hospitalization for management of non-ST elevation VT, HHS while insulin drip if transition to insulin sliding scale with recurrent hypoglycemia, nausea and vomiting in setting of non-ST elevation VT, diabetic gastroparesis and severe constipation Diagnoses Acute colitis K52.9 Type 2 diabetes mellitus with hyperosmolar hyperglycemic state (HHS) E11.00 AMY (acute kidney injury) N17.9 Moderate nausea and vomiting R11.2 Obstipation K59.00 Hypertension I10 ASHD (arteriosclerotic heart disease) I25.10
[2023-07-29] MEDS: metoclopramide 5 mg/mL SDV 2 mL 10 MG IVP ×2 (16:06→20:37)
[2023-07-29 16:12] LABS: Glucose Point of Care 89 mg/dL (70-110)
[2023-07-29] MEDS: atorvastatin 40 mg Tablet PO (17:13)
[2023-07-29] MEDS: sennosides-docusate Tablet 1 TAB PO (17:13)
[2023-07-29 17:18] LABS: Glucose Point of Care 125 mg/dL (70-110)
[2023-07-29] MEDS: magnesium hydroxide 30 mL UDC PO (20:06)
--- NOTE | 2023-07-29 22:30 | ECG_ITS ---
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 Measurements Intervals [place] Rate: 67 P: 74 WA: 138 QRS: 15 QRSD: 96 T: 152 QT: 410 QTc: 434 Interpretive Statements SINUS RHYTHM WITH OCCASIONAL VENTRICULAR PREMATURE COMPLEXES ST DEVIATION AND MODERATE T-WAVE ABNORMALITY, CONSIDER LATERAL ISCHEMIA [-0.1+ mV T-WAVE IN I/aVL/V5/V6] QT prolongation-560 ms Compared to ECG 07/28/2023 17:54:48 Ventricular premature complex(es) now present T-wave abnormality now present Possible ischemia now present Sinus tachycardia no longer present Intraventricular conduction delay no longer present Electronically Signed On 07-29-2023 23:19:06 CDT by Dhruv Clement M.D. [id number]
[2023-07-29] MEDS: enoxaparin 60 mg/0.6 mL Syringe SUBCUT (22:45)
--- NOTE | 2023-07-29 23:10 | PC.NURSE ---
Patient complaining of increased chest pain. Dr Bearden Notified and orders for EKG and Troponin lab draw were given. Patient had decreased level of consciousness. Blood Glucose taken and results were a BG of 60. Doctor notified and hypoglycemia protocol was done.
[2023-07-29] MEDS: dextrose 50% syringe 50 mL 25 ML IVP (23:15)
[2023-07-29 23:31] LABS: Troponin T (5th) Once 171 ng/L (0-10)
--- NOTE | 2023-07-29 23:37 | PC.NURSE ---
Troponin level resulted at 171. Dr. Bearden notifed. No new orders given
[2023-07-30] VITALS (98 sets, daily range): BP systolic 88–156; BP diastolic 46–89; PULSE 66–111; RESP 4–19; TEMP 36.8–37; O2SAT 92–100
--- NOTE | 2023-07-30 | ECG_ITS ---
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 Interpretive Statements Lung unchanged pre/post procedure Intraprocedure shortess of breath Symptoms resoled by discharge PROCEDURE: At the baseline, the EKG revealed normal sinus rhythm with nonspecific IVCD. Diffuse nonspecific ST-T changes the baseline heart was bpm with a blood pressue of mm of Hg Lexiscan was infused over a period of 20 seconds. A total of 0.4 milligrams of Lexiscan was infused. The stress phase was continued for a total of 5 minutes. Heart rate at the end of the stress phase was 117 bpm with a blood pressure 148/74 mm of Hg. The EKG at the peak infusion revealed no significant changes. Sestamibi was injected 20 seconds after the Lexiscan infusion. Heart rate at the end of the recovery phase was 100 bpm with a blood pressure of 140/85 mm of Hg. CONCLUSION: 1. No significant EKG changes with the LexiScan infusion 2. No LexiScan induced chest pain or cardiac arrhythmia 3. Normal blood pressure and heart rate response 4. Sestamibi/sestamibi perfusion scan pending; see separate report. Electronically Signed On 08-02-2023 15:29:03 CDT by Dhruv Clement M.D. [id number]
[2023-07-30] MEDS: morphine 4 mg/mL SDV 1 mL 2 MG IVP (00:10)
[2023-07-30] MEDS: ondansetron 2 mg/ML SDV 2 mL 4 MG IVP (00:55)
[2023-07-30] MEDS: pantoprazole 40 mg SDV IVP ×3 (02:02→17:13)
[2023-07-30] MEDS: alum-mag-hydroxide-sime 30 mL UDC 10 ML PO (02:02)
--- NOTE | 2023-07-30 02:20 | PC.NURSE ---
Dr Bearden notified of low trending blood glucose levels. Order for 0.9% Sodium Chloride to be stopped and D5 1/2 NS to be started at 60 mls an hour until patient is taken off of NPO status.
[2023-07-30] MEDS: meropenem 1,000 MG in sodium chloride 0.9% (plus) 50 ML 100 MG IV ×3 (02:42→22:27)
[2023-07-30] MEDS: dextrose 5%-sod chloride 0.45% 1,000 ML 60 ML IV (02:42)
[2023-07-30] MEDS: metoclopramide 5 mg/mL SDV 2 mL 10 MG IVP ×4 (02:42→20:50)
[2023-07-30 04:56] LABS: Basophils % 0.3 %; Eosinophils # 0.2 10^3/uL (0.0-0.8); Eosinophils % 1.6 %; Hematocrit 32.6 % (36-47); Lymphocytes # 3.6 10^3/uL (0.8-4.8); Lymphocytes % 31.8 %; Mean Corpuscular HGB Conc 29.4 g/dL (30-55); Mean Corpuscular Hemoglobin 25.3 pg (27-33); Mean Corpuscular Volume 85.8 fl (85-98); Mean Platelet Volume 10.9 fL (7.4-10.4); Monocytes # 0.7 10^3/uL (0.2-0.9); Monocytes % 6.1 %; Neutrophils # 6.83 10^3/uL (1.8-7.7); Neutrophils % 59.8 %; Nucleated Red Blood Cells % 0 %; Platelet Count 265 10^3/cmm (157-399); Red Cell Distribution Width 15.9 % (12.1-15.1)
[2023-07-30] MEDS: sucralfate 1 gm/10 mL Oral Liq UDC PO ×3 (05:12→20:35)
[2023-07-30 05:19] LABS: Alanine Aminotransferase < 5 U/L (0-33); Albumin Level 3.2 g/dL (3.5-5.2); Alkaline Phosphatase 80 U/L (35-105); Anion Gap 14.4 (5-19); Aspartate Amino Transferase 9 U/L (0-32); Blood Urea Nitrogen 13 mg/dL (8-23); Calcium 7.6 mg/dL (8.5-10.5); Carbon Dioxide 25 mmol/L (22-29); Chloride 104 mmol/L (98-107); Globulin 2.2 g/dL (1.3-4.6); Glucose 80 mg/dL (65-115); Osmolality Calculated 289 mOsm/kg (285-295); Potassium 3.4 mmol/L (3.5-5.1); Sodium 140 mmol/L (136-145); Total Bilirubin 0.5 mg/dL (0.15-1.2); Total Protein 5.4 g/dL (6.6-8.7)
[2023-07-30 05:20] LABS: Magnesium 1.8 mg/dL (1.7-2.3); Phosphorus 2.2 mg/dL (2.5-4.5)
[2023-07-30] MEDS: clopidogrel 75 mg Tablet PO (05:46)
[2023-07-30] MEDS: potassium chloride ER 20 mEq Tablet 40 MEQ PO (05:46)
[2023-07-30] MEDS: diphenhydrAMINE 50 mg/mL SDV 1mL 25 MG IVP (06:18)
--- NOTE | 2023-07-30 06:41 | NMCV_ITS ---
NM alfredo perf SPECT r/s* [id number] Evelyn Farley Age: 77 Gender: F : 1945 Exam Date: 07/30/2023 12:38 Ordering Phys: Lenard Griffin MD Technologist: DARBY Arndt Exam Location: [facility] Indications: CHEST PAIN STRESS TEST [facility] IMAGE PROTOCOL Rest/Stress 1 Lexiscan Day Radiopharmaceutical Dose (mCi) Administration Site Administered by Rest: Tc-99m 10.9 IV Popeye Timmons, PHYSICIAN PRACTICE ADMINISTRATOR Sestamibi Stress:Tc-99m 32.7 IV DARBY Arndt Sestamibi Rest: 30-Jul-2023 60 Discovery 630 Stress: 30-Jul-2023 30 Discovery 630 0.4mg Lexiscan. Supine position only as patient was unable to lay prone. SPECT RESULTS Technical Quality: Excellent Raw Data Analysis: Normal Image Corrections: No attenuation or motion correction applied Summed Stress Score: 0 Summed Rest Score: 3 Summed Difference Score: 0 PERFUSION FINDINGS Small area of slightly decreased tracer buprenorphine in the mid and apical anterior wall region. No significant reversibility was noted in this region FUNCTIONAL RESULTS (calculated via Gated SPECT) Stress Image LV EF (%): 41 Stress EDV (mL):100 TID: 1.11 Stress ESV (mL):59 FUNCTIONAL FINDINGS: Segmental wall motion analysis revealing diffuse hypokinesia of the septum and the LV apex IMPRESSIONS 1. Myocardial perfusion imaging revealing small area of slightly decreased persistent tracer uptake in the mid and apical anterior wall region suggestive of myocardial scarring versus attenuation artifact. 2. Slightly diminished LV ejection fraction of 41%. 3. LV wall motion analysis revealing diffuse hypokinesia of the septum and the LV apex 4. Mildly dilated LV cavity with an end-systolic volume of 59 ml Low probability for coronary ischemia, based on the above findings Compared to the study from 06/24/2023, the drop in the LV ejection fraction and dilatation of the LV cavity are new Dr Dhruv Clement MD [facility] (Electronically Signed) Final Date: 30 July 2023 14:16 S
[2023-07-30 06:49] LABS: Glucose Point of Care 99 mg/dL (70-110)
[2023-07-30 06:49] LABS: Glucose Point of Care 61 mg/dL (70-110)
[2023-07-30 06:49] LABS: Glucose Point of Care 85 mg/dL (70-110)
[2023-07-30 06:49] LABS: Glucose Point of Care 116 mg/dL (70-110)
[2023-07-30 06:49] LABS: Glucose Point of Care 66 mg/dL (70-110)
[2023-07-30 06:49] LABS: Glucose Point of Care 100 mg/dL (70-110)
[2023-07-30 06:49] LABS: Glucose Point of Care 99 mg/dL (70-110)
[2023-07-30 06:49] LABS: Glucose Point of Care 92 mg/dL (70-110)
[2023-07-30 07:25] LABS: Glucose Point of Care 134 mg/dL (70-110)
[2023-07-30] MEDS: bisacodyl 10 mg Supp PR (09:25)
[2023-07-30] MEDS: phosphorus 250 mg Tablet PO (09:25)
[2023-07-30] MEDS: sennosides-docusate Tablet 1 TAB PO ×2 (09:25→17:13)
[2023-07-30] MEDS: aspirin 81 mg EC Tablet PO (09:25)
[2023-07-30] MEDS: enoxaparin 60 mg/0.6 mL Syringe SUBCUT (09:25)
[2023-07-30] MEDS: calcium gluconate 0.9% NaCL 1 GM/50 ML PREMIX IV (10:42)
[2023-07-30] MEDS: potassium phosphate (mEq K) 40 MEQ in sodium chloride 0.9% (100 ml) 100 ML 27.27 MEQ IV (10:42)
[2023-07-30] MEDS: HYDROcodone-acetaminophen 10-325 mg Tablet 1 TAB PO ×2 (10:54→20:35)
[2023-07-30 11:02] LABS: Glucose Point of Care 180 mg/dL (70-110)
[2023-07-30] MEDS: regadenoson 0.4 Mg/5 ml Syringe IVP (12:05)
[2023-07-30] MEDS: insulin lispro 100 unit/1 mL SUBCUT ×2 (13:29→17:15)
--- NOTE | 2023-07-30 14:58 | P.PN_ITS ---
Subjective Subjective: No acute events overnight. Patient has remained hemodynamically stable and afebrile. She had tolerated clear liquid diet well without episodes of nausea or vomiting. Patient is saturating well on 2 L of nasal cannula. Document urine output of around 1100 cc in last 24 hours. Patient did have drop in her blood sugar last night for which the fluid was changed to D5 NS. Currently blood sugars running optimal. Blood work today shows a stable CBC with a white count of 11.4, hemoglobin at 9.6 down from 11.5 from yesterday, platelet count of 265, CMP showing potassium of 3.4, creatinine stable at 1.2, phosphorus of 2.2 with calcium of 7.6. Patient is currently awaiting second part of Lexiscan stress test on examination. Vitals/I&O/Wt Last Vital Signs Temp 98.3 F 07/30/23 13:30 Pulse 94 07/30/23 14:06 Resp 12 07/30/23 14:00 BP 136/70 07/30/23 14:00 Pulse Ox 97 07/30/23 14:00 O2 Del Method Nasal Cannula 07/30/23 14:00 07/29/23 07/30/23 07/30/23 22:59 06:59 14:59 Intake Total 250 / 2035.850 1352.5 / 3388.350 Output Total 350 / 1050 750 / 1800 Balance -100 / 985.850 602.5 / 1588.350 Physical Exam Const: COMMON NORMALS: patient oriented x3 and alert GENERAL APPEARANCE: cooperative ORIENTATION/CONSCIOUSNESS: Yes awake HENMT: COMMON NORMALS: oropharynx normal Neck/C-Spine: COMMON NORMALS: no JVD Resp: COMMON NORMALS: normal respiratory effort and clear to auscultation bilaterally AUSCULTATION: clear to auscultation bilaterally Cardio: COMMON NORMALS: no JVD, regular rhythm, S1 normal heart sound present, S2 normal heart sound present and No murmurs present (Cardio) RHYTHM: regular rhythm HEART SOUNDS: S1 normal heart sound present and S2 normal heart sound present GI: COMMON NORMALS: Normal to inspection, nondistended, normoactive bowel sounds present, Soft to palpation and non-tender PALPATION: Yes Soft to palpation Extremity: COMMON NORMALS: no joint enlargement and no pedal edema Neuro: COMMON NORMALS: patient oriented x3 and moves all extremities SE NSORIUM/ORIENTATION: Yes alert Skin: COMMON NORMALS: no rashes or lesions noted GENERAL SKIN EXAM: no rashes or lesions noted Urinary Catheter Management: Cisneros: Cath Placed During This Visit: yes Reason for Continuing Indwelling Catheter: Accurate Measurement of Urinary Output in Critically Ill Patients Urinary Catheter Date of Insertion: 07/28/23 Urinary Catheter Time of Insertion: 04:00 Data 07/30/23 03:25 07/30/23 03:25 Micro: Microbiology 07/28/23 11:10 Blood Culture - Preliminary Blood NEGATIVE TO DATE A&P Assessment and plan (1) Acute colitis: (2) Type 2 diabetes mellitus with hyperosmolar hyperglycemic state (HHS): (3) AMY (acute kidney injury): (4) Moderate nausea and vomiting: (5) Obstipation: (6) Hypertension: (7) ASHD (arteriosclerotic heart disease): Plan 77 year old female with history of coronary artery disease, diabetes mellitus, diabetic gastroparesis hiatal hernia neuropathy, fibromyalgia, hyperlipidemia, hypertension,obstipation, colitis presented with complaint of chest pain nausea vomiting and diarrhea x1 and now has complaint of diffuse abdominal pain with leukocytosis likely secondary to acute gastroenteritis/diabetic gastroparesis/hyperglycemic hyperosmolar state given blood sugar of 283 and serum osmolality 300, urine ketones 2+ Nausea and vomiting: NG tube in place. Patient on bowel rest. Patient CT abdomen pelvis results appreciated. Consistent with severe constipat ion and obstipation along with possible stercoral colitis. Patient does have history of diabetic gastroparesis. Cannot rule out in setting of non-ST elevation [place]. Start on clear liquid diet. Keep NG tube in place. If has no nausea or vomiting will DC NG tube. Reglan 10 mg every 6 hours. Zofran as needed. Non-ST elevation [place]: Troponin cycle negative baseline troponin of 108 on 07/26 while on admission was 13. Repeat baseline troponin to morning labs. Reviewed cardiac angiogram from 2021 in which patient had severe mid LAD stenosis s/p successful revascularization with JALEN x1, mid LAD treated with balloon and drug-eluting stent, severe distal left circumflex/left PDA stenosis post successful revascularization with balloon angioplasty but no stent was placed because of small vessel. Repeat echocardiogram done during this hospitalization shows a new low EF of 34%, dyskinetic apex with diffuse hypokinesia of left ventricle, trace TR, mildly dilated 2 LV cavity. Continue with aspirin, Plavix, beta-arlette. Switch to full dose Lovenox 1 mg/kg body weight every 12 hourly. Appreciate recent A1c and lipid panel. We will plan for Lexiscan stress test within next 24 hours. Cardiology con sultation as per stress test results for possible cardiac angiogram. HHS: Blood sugars are well controlled. No anion gap. Replete potassium. Repeat BMP in evening. Stop insulin drip. Switch to insulin sliding scale at low-dose protocol along with Lantus 10 units every morning. Patient is supposed to be on insulin sliding scale with Lantus 60 units twice daily. Monitor blood sugars. Switch from D10 to normal saline in 2 hours after stopping insulin drip. Monitor for hypoglycemia. Severe constipation: With stercoral colitis, pseudoobstruction with severe nausea vomiting, intolerance of oral intake. Continue with aggressive bowel regimen. Milk of mag, senna Colace. NGT in place to LIS clamped now. X-ray reviewed. Requested to advance NGT 5-10 cm. Noted termination of stomach on CT. Vomiting so far improved. Continue to work on constipation. Received Dulcolax suppository. Discussed with them giving an enema. Repeat Dulcolax in the morning. Add MiraLAX. Received IV hydration. Severe hypokalemia: Serum and phosphorus daily. Repleted. Repeat BMP in evening. Monitor manage Goals of care discussion: Discussed in detail with patient. She states she was DNR/DNI otherwise okay with cardiac angiogram or ICU treatment if needed. will be the DPOA. DNR/DNI Clear liquid diet, n.p.o. after midnight Full dose Lovenox will suffice as DVT prophylaxis Protonix for PUD prophylaxis. Plan for the day: Follow-up Lexiscan stress test. For now continue with full dose Lovenox. We will switch to prophylactic dose as per stress test results. Continue with dual antiplatelet therapy, beta-arlette and statin therapy. Stop Lantus. Continue with insulin sliding scale with meals, hold nighttime NovoLog dose. If blood sugars stable which switch from D5 NS to normal saline at 60 cc/h. Continue with aggressive bowel regimen. Replete potassium and phosphorus. Continue with clear liquid diet. If tolerating well for lunch we will remove NG tube and advance to full liquid diet for dinner. Attestations Medical Necessity Statement*: Requires further hospitalization for management of possible non-ST elevation [place], intractable nausea and vomiting in a patient with severe constipation, stercoral colitis with labile blood sugars while insulin dose is managed Diagnoses Acute colitis K52.9 Type 2 diabetes mellitus with hyperosmolar hyperglycemic state (HHS) E11.00 AMY (acute kidney injury) N17.9 Moderate nausea and vomiting R11.2 Obstipation K59.00 Hypertension I10 ASHD (arteriosclerotic heart disease) I25.10
[2023-07-30] MEDS: sodium chloride 0.9% 1,000 ML 60 ML IV (15:37)
[2023-07-30 16:42] LABS: Glucose Point of Care 239 mg/dL (70-110)
--- NOTE | 2023-07-30 17:00 | PC.NURSE ---
Report faxed then called to [facility]. Report given to CAN Baker. Evening Medications and dinner will be gien prior to transfer.
[2023-07-30] MEDS: atorvastatin 40 mg Tablet PO (17:13)
[2023-07-30] MEDS: metoprolol tartrate 50 mg Tablet 100 MG PO (17:13)
--- NOTE | 2023-07-30 17:58 | PC.NURSE ---
Addendum entered by Jo Ann Esteves RN 07/30/23 18:52: Pt noted to have very slight nose bleed from right nostrilover an hour after NG removal. Pressure held. CAN Baker also notified of this. Original Note: Pt transferredvia W/C to [facility]-2. All belongings with patient. CAN Baker update.
[2023-07-30] MEDS: magnesium hydroxide 30 mL UDC PO (20:35)
[2023-07-30 21:08] LABS: Glucose Point of Care 165 mg/dL (70-110)
[2023-07-31 02:00] VITALS: BP 121/54; PULSE 75; RESP 17; TEMP 36.8; O2SAT 97
[2023-07-31] MEDS: ondansetron 2 mg/ML SDV 2 mL 4 MG IVP (02:02)
[2023-07-31 04:00] VITALS: BP 103/58; PULSE 84; RESP 17; TEMP 36.8; O2SAT 95
[2023-07-31] MEDS: metoclopramide 5 mg/mL SDV 2 mL 10 MG IVP ×2 (04:57→08:14)
[2023-07-31] MEDS: pantoprazole 40 mg SDV IVP (04:58)
[2023-07-31] MEDS: sucralfate 1 gm/10 mL Oral Liq UDC PO (05:46)
[2023-07-31] MEDS: clopidogrel 75 mg Tablet PO (05:46)
[2023-07-31] MEDS: potassium chloride ER 20 mEq Tablet 40 MEQ PO (05:47)
[2023-07-31 05:59] LABS: Basophils % 0.5 %; Eosinophils # 0.3 10^3/uL (0.0-0.8); Eosinophils % 3.7 %; Hematocrit 32.9 % (36-47); Lymphocytes # 3.7 10^3/uL (0.8-4.8); Lymphocytes % 41.5 %; Mean Corpuscular HGB Conc 30.4 g/dL (30-55); Mean Corpuscular Hemoglobin 25.4 pg (27-33); Mean Corpuscular Volume 83.7 fl (85-98); Monocytes # 0.6 10^3/uL (0.2-0.9); Monocytes % 6.5 %; Neutrophils # 4.22 10^3/uL (1.8-7.7); Neutrophils % 47.6 %; Nucleated Red Blood Cells % 0 %; Platelet Count 284 10^3/cmm (157-399); Red Blood Count 3.93 10^6/uL (3.85-5.65); Red Cell Distribution Width 15.9 % (12.1-15.1); White Blood Count 8.87 10^3/uL (3.29-11.43)
[2023-07-31 06:00] VITALS: BP 103/58; PULSE 84; PULSE 97; RESP 17; TEMP 36.8; O2SAT 95
[2023-07-31 06:24] LABS: Alanine Aminotransferase < 5 U/L (0-33); Albumin Level 3.3 g/dL (3.5-5.2); Alkaline Phosphatase 88 U/L (35-105); Anion Gap 15.7 (5-19); Aspartate Amino Transferase 8 U/L (0-32); Blood Urea Nitrogen 10 mg/dL (8-23); Calcium 8.4 mg/dL (8.5-10.5); Carbon Dioxide 26 mmol/L (22-29); Chloride 100 mmol/L (98-107); Glucose 175 mg/dL (65-115); Osmolality Calculated 289 mOsm/kg (285-295); Phosphorus 2.6 mg/dL (2.5-4.5); Potassium 3.7 mmol/L (3.5-5.1); Sodium 138 mmol/L (136-145); Total Bilirubin 0.5 mg/dL (0.15-1.2); Total Protein 6.3 g/dL (6.6-8.7)
[2023-07-31 06:29] LABS: Magnesium 1.8 mg/dL (1.7-2.3)
[2023-07-31 06:39] LABS: Glucose Point of Care 188 mg/dL (70-110)
[2023-07-31 08:00] VITALS: BP 114/68; PULSE 90; RESP 17; TEMP 36.8; O2SAT 99
[2023-07-31] MEDS: sennosides-docusate Tablet 1 TAB PO (08:13)
[2023-07-31] MEDS: enoxaparin 40 mg/0.4 mL Syringe SUBCUT (08:13)
[2023-07-31] MEDS: insulin lispro 100 unit/1 mL SUBCUT (08:13)
[2023-07-31] MEDS: HYDROcodone-acetaminophen 10-325 mg Tablet 1 TAB PO (08:13)
[2023-07-31] MEDS: metoprolol tartrate 50 mg Tablet 100 MG PO (08:13)
[2023-07-31] MEDS: aspirin 81 mg EC Tablet PO (08:14)
--- NOTE | 2023-07-31 10:27 | PM.DCS ---
Discharge Providers Date of Admission: 07/26/23 22:50 Date of Discharge: July 31, 2023 Attending Provider at Admission: Denia Bearden MD Attending Provider at Discharge: Lenard Griffin MD Primary Care Provider: Jane Strickland MD Diagnoses at Discharge Discharge Diagnosis (1) Acute colitis: Status: Acute (2) Type 2 diabetes mellitus with hyperosmolar hyperglycemic state (HHS): Status: Acute (3) AMY (acute kidney injury): Status: Acute (4) Moderate nausea and vomiting: Status: Acute (5) Obstipation: Status: Acute (6) Hypertension: Status: Acute (7) ASHD (arteriosclerotic heart disease): Status: Inactive Reason for Visit Reason for Visit: Chest Pain/ NV/ Cardiac History Brief History: History as per HPI: Evelyn Farley is a 77 year old female with history of coronary artery disease, diabetes mellitus, diabetic gastroparesis hiatal hernia neuropathy, fibromyalgia, hyperlipidemia, hypertension,obstipation, colitis presented with complaint of chest pain since 1 day.? She describes chest pain as substernal burning associated with nausea and vomiting, also had diarrhea x1 this morning.? There is no history of fever cold cough abdominal pain or urinary complaints.? As per the family she ate tuna salad a day prior to admission. Hospital Course Hospital Course Patient was admitted to the hospital for further evaluation and management of severe nausea and vomiting. At first she was started on treatment for acute gastritis with gastroparesis with IV hydration, PPIs and antiemetics as needed. During hospitalization patient developed high blood sugars with electrolyte abnormalities. She was transferred to ICU and treatment was initiated for possible DKA versus HHS. Patient's hospitalization was complicated by her having extremely labile blood sugars with multiple episodes of hypoglycemia requiring D5 infusion along with episodes of HHS. CT abdomen pelvis was done which was consistent with severe obstipation and stercoral colitis. Because of persistent epigastric pain troponins were checked and were found to be elevated. Echocardiogram was done which showed a new low EF of 34% with dilated LV cavity and regional wall motion abnormality with somewhat dyskinetic apex. Eventually patient was continued on treatment with IV hydration, aggressive bowel regimen and bowel rest with NG tube in place. Gradually liquid diet for initiated which patient has been able to tolerate well. For concerns for elevated troponins and new low EF with concerns for non-ST elevation IN being the primary source of patient's symptomatology she was started on anticoagulation with full dose Lovenox after which her nausea improved. Eventually after becoming hemodynamically stable she underwent Lexiscan stress test on 07/30 which was suggestive of myocardial scarring with an EF of 41%. Patient has been able to tolerate full liquid diet without episodes of nausea for last 24 hours. Because of her labile blood sugars her dose of Lantus has been stopped and she is to continue taking Humalog at home as per sliding scale which has been provided to the patient. She is advised to maintain a blood pressure and blood sugar diary for next 10 days and follow-up with her primary care provider for further adjustment of medications. She is advised to continue taking full liquid diet for next 3 to 4 days and then gradually advance to a regular diet in next 1 week. Physical Exam Const: COMMON NORMALS: patient oriented x3 and alert GENERAL APPEARANCE: cooperative ORIENTATION/CONSCIOUSNESS: Yes awake HENMT: COMMON NORMALS: oropharynx normal Neck/C-Spine: COMMON NORMALS: no JVD Resp: COMMON NORMALS: normal respiratory effort and clear to auscultation bilaterally AUSCULTATION: clear to auscultation bilaterally Cardio: COMMON NORMALS: no JVD, regular rhythm, S1 normal heart sound present, S2 normal heart sound present and No murmurs present (Cardio) RHYTHM: regular rhythm HEART SOUNDS: S1 normal heart sound present and S2 normal heart sound present GI: COMMON NORMALS: Normal to inspection, nondistended, normoactive bowel sounds present, Soft to palpation and non-tender PALPATION: Yes Soft to palpation Extremity: COMMON NORMALS: no joint enlargement and no pedal edema Neuro: COMMON NORMALS: patient oriented x3 and moves all extremities SENSORIUM/ORIENTATION: Yes alert Skin: COMMON NORMALS: no rashes or lesions noted GENERAL SKIN EXAM: no rashes or lesions noted Urinary Catheter Management: Cisneros: Cath Placed During This Visit: yes Reason for Continuing Indwelling Catheter: Other Urinary Catheter Date of Insertion: 07/28/23 Urinary Catheter Time of Insertion: 04:00 Discharge Data Studies Completed and Pending Completed Studies During Hospitalization Category Date Time Status CT abdomen pelvis wo con [id number] Stat Cat Scan 07/26/23 14:[address] chest abdomen [place] [id number] Cat Scan 07/28/23 12:39 Completed ] Routine CXRP [XR chest 1V portable [id number]] Routine Exams 07/28/23 03:05 Completed Cardiac Stress Test MIBI [Sestamibi Stress Test Request Exams 07/30/23 06:40 Draft ] Routine XR abdomen 1V* [id number] Stat Exams 07/28/23 03:29 Completed XR chest 1V portable [id number] Stat Exams 07/26/23 13:44 Completed XR chest 1V portable [id number] Stat Exams 07/27/23 11:04 Completed NM alfredo perf SPECT r/s* [id number] Routine Nuc Med 07/30/23 06:41 Completed CV. echo complete* [id number] Routine Ultrasound 07/28/23 14:54 Completed Pending at discharge Category Date Time Status Sestamibi Stress Test Request Routine Exams 07/29/23 15:04 Stop Req Blood Culture Stat Lab 07/28/23 11:10 Results Comprehensive Metabolic Panel AM LABS Lab 08/01/23 04:00 Ordered MAG [Magnesium] AM LABS Lab 08/01/23 04:00 Ordered PHOS [Phosphorus] AM LABS Lab 08/01/23 04:00 Ordered VBG [Venous Blood Gas] Routine Lab 07/27/23 10:45 Results Radiology Impressions Chest X-Ray 07/28/23 03:05 IMPRESSION: 1. Right arm PICC line tip at the cavoatrial junction. 2. Nasogastric tube in the stomach. The side port is in the area of the gastroesophageal junction. 3. Prominent interstitial markings, new from the comparison examination. These are favored to represent fluid overload/interstitial edema. Pneumonitis is considered less likely. Abdomen X-Ray 07/28/23 03:29 IMPRESSION: 1. NG tube tip in the stomach with the side port in the area of the gastroesophageal junction. 2. Moderate fecal stasis consistent with constipation. 3. No evidence of small bowel obstruction. Chest/Abdomen/Pelvis CT 07/28/23 12:39 IMPRESSION: 1. Small right and trace left pleural effusions. 2. Scattered reticular and faint ground-glass opacities likely represent mild pulmonary edema. IMPRESSION: 1. Trace nonspecific free fluid in the abdomen and pelvis, significantly improved compared to 07/26/2023. 2. Clumped appearance of stool, with mild surrounding large bowel wall thickening, throughout the majority of the ascending and transverse colons. This is stable to minimally improved compared to 07/26/2023. Similar findings in the sigmoid colon and rectum have intervally resolved compared to 07/26/2023. Differential includes obstipation and nonspecific colitis. Microbiology 07/28/23 11:10 Blood Blood Culture - Preliminary NEGATIVE TO DATE 07/28/23 05:35 Blood Blood Culture - Preliminary NEGATIVE TO DATE Lexiscan stress test: PERFUSION FINDINGS ?Small area of slightly decreased tracer buprenorphine in the mid and apical ?anterior wall region.? No significant reversibility was noted in this region ?FUNCTIONAL RESULTS ? ? (calculated via Gated SPECT) ? Stress Image LV EF (%):? ? 41 ? Stress EDV (mL):100? TID:? 1.11 ? Stress ESV (mL):59 ?FUNCTIONAL FINDINGS: ?Segmental wall motion analysis revealing diffuse hypokinesia of the septum and ?the LV apex ?IMPRESSIONS ?1.? Myocardial perfusion imaging revealing small area of slightly decreased ?persistent tracer uptake in the mid and apical anterior wall region suggestive ?of myocardial scarring versus attenuation artifact. ?2.? Slightly diminished LV ejection fraction of 41%. ?3.? LV wall motion analysis revealing diffuse hypokinesia of the septum and the ?LV apex ?4.? Mildly dilated LV cavity with an? end-systolic volume of 59 ml ?Low probability for coronary ischemia, based on the above findings ?Compared to the study from 06/24/2023, the drop in the LV ejection fraction and ?dilatation of the LV cavity are new ?Dr Dhruv Clement MD FACC ?(Electronically Signed) ?Final Date:? ? ? 30 July 2023 Echocardiogram: CONCLUSIONS ?Diffuse hypokinesia left-ventricular somewhat dyskinetic apex.? ?LV ejection fraction around 34%.? ?Thickened mitral valve. Mild mitral annular calcification. Mild ?mitral valve regurgitation. ?Trace tricuspid valve regurgitation. ?Mildly dilated LV cavity. ?There is no pericardial effusion. ?Compared to the study from 09/07/2022, there is significant drop ?in the LV ejection fraction from 45-50% to? 34% ?Dr Dhruv Clement MD FACC ?(Electronically Signed) ?Final Date:? ? ? 28 July 2023 Laboratory Results WBC 8.87 10^3/uL (3.29-11.43) 07/31/23 05:08 RBC 3.93 10^6/uL (3.85-5.65) 07/31/23 05:08 Hgb 10.00 g/dL (11.27-16.99) L 07/31/23 05:08 Hct 32.9 % (36-47) L 07/31/23 05:08 MCV 83.7 fl (85-98) L 07/31/23 05:08 MCH 25.4 pg (27-33) L 07/31/23 05:08 MCHC 30.4 g/dL (30-55) 07/31/23 05:08 RDW 15.9 % (12.1-15.1) H 07/31/23 05:08 Plt Count 284 10^3/cmm (157-399) 07/31/23 05:08 MPV 11.0 fL (7.4-10.4) H 07/31/23 05:08 Neut % (Auto) 47.6 % 07/31/23 05:08 Lymph % (Auto) 41.5 % 07/31/23 05:08 Harvey % (Auto) 6.5 % 07/31/23 05:08 Eos % (Auto) 3.7 % 07/31/23 05:08 Baso % (Auto) 0.5 % 07/31/23 05:08 Neut # (Auto) 4.22 10^3/uL (1.8-7.7) 07/31/23 05:08 Lymph # (Auto) 3.7 10^3/uL (0.8-4.8) 07/31/23 05:08 Harvey # (Auto) 0.6 10^3/uL (0.2-0.9) 07/31/23 05:08 Eos # (Auto) 0.3 10^3/uL (0.0-0.8) 07/31/23 05:08 Baso # (Auto) 0.0 10^3/uL (0.0-0.1) 07/31/23 05:08 Nucleated RBC % (auto) 0 % 07/31/23 05:08 Nucleated RBCs # 0.0 /100WBC 07/31/23 05:08 PT 14.20 SECONDS (12.1-14.9) 07/28/23 05:35 INR 1.07 (0.8-1.2) 07/28/23 05:35 APTT 25.6 SECONDS (23.9-36.7) 07/26/23 12:55 Specimen Type Arterial 07/29/23 05:10 Sample Site Brachial, left 07/29/23 05:10 ABG pH 7.49 (7.35-7.45) H 07/29/23 05:10 ABG pCO2 40.1 mmHg (35-45) 07/29/23 05:10 ABG pO2 64.7 mmHg (80.0-100.0) L 07/29/23 05:10 ABG HCO3 30.3 mmol/L (22-26) H 07/29/23 05:10 ABG Base Excess 6.4 mmol/L (-2.0-2.0) H 07/29/23 05:10 Antonio Test N/a 07/29/23 05:10 VBG pH 7.51 (7.32-7.42) H 07/27/23 10:45 VBG pCO2 22.9 mmHg (41-51) L 07/27/23 10:45 VBG pO2 139.0 mmHg (25-40) H 07/27/23 10:45 VBG HCO3 18.4 mmol/L (24-28) L 07/27/23 10:45 VBG Base Excess -3.3 mmol/L (-3.0-3.0) L 07/27/23 10:45 VBG Hematocrit 32.6 % (37-47) L 07/27/23 10:45 Hematocrit 32.9 % (37-47) L 07/29/23 05:10 O2 Delivery Device None 07/29/23 05:10 FiO2 21.0 % 07/29/23 05:10 Ward Supervisor ID Alewe 07/29/23 05:10 Sodium 138 mmol/L (136-145) 07/31/23 05:08 Potassium 3.7 mmol/L (3.5-5.1) 07/31/23 05:08 Chloride 100 mmol/L (98-107) 07/31/23 05:08 Carbon Dioxide 26 mmol/L (22-29) 07/31/23 05:08 Anion Gap 15.7 (5-19) 07/31/23 05:08 BUN 10 mg/dL (8-23) 07/31/23 05:08 Creatinine 1.0 mg/dL (0.5-0.9) H 07/31/23 05:08 GFR Calculation Not Reportable 07/31/23 05:08 Glucose 175 mg/dL (65-115) H 07/31/23 05:08 POC Glucose 188 mg/dL (70-110) H 07/31/23 06:17 Calculated Osmolality 289 mOsm/kg (285-295) 07/31/23 05:08 Lactate 1.3 mmol/L (0.5-2.2) 07/28/23 18:38 Calcium 8.4 mg/dL (8.5-10.5) L 07/31/23 05:08 Phosphorus 2.6 mg/dL (2.5-4.5) 07/31/23 05:08 Magnesium 1.8 mg/dL (1.7-2.3) 07/31/23 05:08 Total Bilirubin 0.5 mg/dL (0.15-1.2) 07/31/23 05:08 AST 8 U/L (0-32) 07/31/23 05:08 ALT < 5 U/L (0-33) 07/31/23 05:08 Alkaline Phosphatase 88 U/L (35-105) 07/31/23 05:08 Troponin T Gen 5 ng/L 171 ng/L (0-10) H* 07/29/23 23:00 Troponin T Baseline 108 ng/L (0-10) H* 07/28/23 11:10 Troponin T 120 Minute 107.0 ng/L (0-10) H 07/28/23 13:07 Delta Troponin T -1.0 ABS# (0-10) L 07/28/23 13:07 Troponin T Hi Sens 6Hr 94.11 ng/L (0-10) H 07/28/23 17:15 Troponin T Hi Sens 6Hr Delta -13.89 ng/L (0-12) L 07/28/23 17:15 NT-Pro-B Natriuret Pep 2190 pg/mL (0-450) H 07/27/23 04:04 Total Protein 6.3 g/dL (6.6-8.7) L 07/31/23 05:08 Albumin 3.3 g/dL (3.5-5.2) L 07/31/23 05:08 Globulin 3.0 g/dL (1.3-4.6) 07/31/23 05:08 Lipase 12 U/L (13-60) L 07/26/23 12:55 TSH 1.12 uIU/mL (0.27-4.20) 07/28/23 13:07 Random Cortisol 29.19 ug/dL (2.47-19.5) H 07/28/23 13:07 Urine Color Yellow (Yellow) 07/26/23 17: Urine Appearance Sl hazy (CLEAR) A 07/26/23 17: Urine pH 5 (5-7) 07/26/23 17: Ur Specific Napoleon 1.010 (1.005-1.030) 07/26/23 17: Urine Protein 1+ (Negative) H 07/26/23 17: Urine Glucose (UA) 4+ (Normal) H 07/26/23 17: Urine Ketones 2+ (Negative) H 07/26/23 17: Urine Blood 2+ (Negative) H 07/26/23 17: Urine Nitrate Negative (Negative) 07/26/23 17: Urine Bilirubin Neg (Negative) 07/26/23 17: Urine Urobilinogen Norm mg/dL (Negative) 07/26/23 17: Ur Leukocyte Esterase Negative (Negative) 07/26/23 17: Urine RBC 0-4 /hpf (0-2) H 07/26/23 17:23 Urine WBC None /hpf (0-5) 07/26/23 17: Ur Squamous Epith Cells Rare /hpf (0-5) 07/26/23: Amorphous Sediment Not Reportable 07/26/23 17: Urine Bacteria 1+ /hpf (NONE) H 07/26/23 17:23 Serum Ketones Negative (Negative) 07/28/23 18:38 Adenovirus (PCR) Detected (NOT DETECT) A 07/28/23 19:28 Coronavirus 229E (PCR) Not detected (NOT DETECT) 07/28/23 17:10 SARS-CoV-2 (PCR) Not detected (NOT DETECT) 07/28/23 17:10 Vitals Last Vital Signs Temp 98.2 F 07/31/23 08:00 Pulse 90 07/31/23 08:00 Resp 17 07/31/23 08:00 BP 114/68 07/31/23 08:00 Pulse Ox 99 07/31/23 08:00 O2 Del Method Room Air 07/31/23 06:00 Discharge Plan Discharge Patient Disposition: Home Condition: Stable Prescriptions: New magnesium hydroxide [Milk of Magnesia] 400 mg/5 mL suspension 5 ml PO DAILY Qty: 3780 0RF docusate sodium [Colace] 100 mg capsule 100 mg PO BID Qty: 20 0RF Continued hydrocodone-acetaminophen 10-325 mg tablet 1 tab PO DAILY PRN (Reason: pain) 30 Days Qty: 60 0RF (DME) Dexcom G7 City Editor Misc See Rx Instructions .Route Qty: 1 0RF Rx Instructions: As directed (DME) Dexcom G7 Sensor Device See Rx Instructions .Route Qty: 1 0RF Rx Instructions: As directed sumatriptan succinate 100 mg tablet See Rx Instructions PO .COMPLEX Qty: 14 0RF Rx Instructions: take 1 tab at onset of headache; if no relief, may repeat 1 tab after at least 2 hrs; max = 2 tabs/24 hrs PO (DME) blood-glucose meter Kit See Rx Instructions .ROUTE .MEDSUPPLY Qty: 1 0RF Rx Instructions: TEST 4 TIMES PER DAY (DME) Accu-Chek [place] Plus test strp Strip See Rx Instructions .ROUTE .MEDSUPPLY Qty: 100 4RF Rx Instructions: TEST QID (DME) pen needle, diabetic [1st Tier Unifine Pentips] 29 gauge x 1/2 needle See Rx Instructions .Route Qty: 100 4RF Rx Instructions: As directed (DME) Accu-Chek [place] Plus test strp Strip See Rx Instructions .Route Qty: 100 4RF Rx Instructions: As directed; QID (DME) pen needle, diabetic [TechLITE Pen Needle] 32 gauge x 5/32 needle See Rx Instructions .ROUTE .COMPLEX Qty: 100 3RF Dose Instruction: USE FOUR TIMES DAILY WITH INSULIN Rx Instructions: USE FOUR TIMES DAILY WITH INSULIN ondansetron 4 mg tablet,disintegrating See Rx Instructions .ROUTE .COMPLEX Qty: 12 3RF Dose Instruction: DISSOLVE ONE TABLET BY MOUTH EVERY 8 HOURS FOR THREE DAYS Rx Instructions: DISSOLVE ONE TABLET BY MOUTH EVERY 8 HOURS FOR THREE DAYS albuterol sulfate 90 mcg/actuation HFA aerosol inhaler 2 puff inhalation Q6H PRN (Reason: shortness of breath or wheezing) Qty: 8.5 0RF furosemide 40 mg Tablet 40 mg PO DAILY@0800 Qty: 30 0RF ondansetron HCl 8 mg tablet 8 mg PO Q8H PRN (Reason: Nausea) metoprolol tartrate 100 mg tablet 100 mg PO BID clopidogrel 75 mg tablet 75 mg PO QAM Klor-Con M20 20 mEq tablet,ER particles/crystals 40 meq PO QAM omeprazole 20 mg capsule,delayed release(DR/EC) 20 mg PO BID rosuvastatin 40 mg tablet 40 mg PO QPM multivitamin Tablet 1 tab PO QAM nitroglycerin 0.4 mg tablet, sublingual 0.4 mg sublingual Q5M PRN (Reason: chest pain) Qty: 30 0RF Rx Instructions: do not exceed 3 doses per episode aspirin [Adult Low Dose Aspirin] 81 mg tablet,delayed release (DR/EC) 81 mg PO BEDTIME 30 Days Qty: 30 3RF Changed Novolog FlexPen U-100 Insulin 100 unit/mL (3 mL) insulin pen See Rx Instructions .ROUTE .COMPLEX Qty: 15 0RF Dose Instruction: INJECT FIVE UNITS (0.05ML) SUBCUTANEOUSLY THREE TIMES DAILY FOR 30 DAYS PER SLIDING SCALE ADJUST DIRECTED Rx Instructions: INJECT FIVE UNITS (0.05ML) SUBCUTANEOUSLY THREE TIMES DAILY FOR 30 DAYS PER SLIDING SCALE ADJUST DIRECTED 141-180 mg/dl 2 unit/SQ 181-220 mg/dl 4 units/SQ 221-260 mg/dl 6 units/SQ 261-300 mg/dl 8 units/SQ 301-350 mg/dl 10 units/SQ 351-400 mg/dl 12 units/SQ Discontinued hydrocodone-acetaminophen 10-325 mg tablet 1 tab PO DAILY PRN (Reason: pain) 30 Days Qty: 60 0RF Rx Instructions: do not fill until 08/14/2023 hydrocodone-acetaminophen 10-325 mg tablet 1 tab PO DAILY PRN (Reason: pain) 30 Days Qty: 30 0RF Rx Instructions: do not fill until 09/09/23 Levemir FlexPen 100 unit/mL (3 mL) insulin pen See Rx Instructions .ROUTE .COMPLEX Qty: 40 2RF Dose Instruction: inject 80 units SUBCUTANEOUSLY TWICE DAILY Rx Instructions: inject 80 units SUBCUTANEOUSLY TWICE DAILY hydralazine 25 mg tablet 25 mg PO TID amlodipine 10 mg tablet 10 mg PO QPM Discharge Orders: Discharge Order (Routine); Ordered 07/31/23 Ordered By: Lenard Griffin Referrals: Jane Strickland MD [Primary Care Provider] - 08/05/23 2:20 pm Discharge Diet: Diabetic Discharge Activity: Resume usual activity and Increase activity as tolerated Patient Instructions: Heart Attack (GEN), Acute Kidney Injury (GEN), Colitis (ED), Opioid Safety Activity Restrictions/Additional Instructions: Multiple medication changes have been done. Hydralazine has been stopped. Continue taking metoprolol as before. Amlodipine has been stopped. Do not take Lantus anymore. Continue taking insulin as before. Insulin sliding scale has been provided to you to adjust insulin for blood sugars as needed. Please check your blood pressure daily at home, blood sugars 3 times a day before meals daily at home and maintain a blood sugar and blood pressure diary and follow-up with a primary care provider within next 10 days for further adjustment of medications as needed. She is to restrict fluid intake to less than 1500 cc, salt intake to less than 2 g daily. She was advised to check her weight daily at home. She is advised that her weight today would be her dry weight and if her body weight increases by around 5 pounds she is to take an extra dose of Lasix daily till her body weight comes down to her weight today. If she is not able to come down to her dry body weight in 1 week she is to call cardiology office for further recommendations. Patient was counseled in detail to take her medications regularly. Continue with full liquid diet for next 3 to 4 days and then advance very gradually to your regular diet within next 1 week. Discharge Attestations Time Spent in Discharge Care*: greater than 30 min Specific Discharge Activities: educating patient, discussing with pcp/other providers, discussing with child support case officer/social workers/dc planners, documenting/other paperwork and evaluating patient/reviewing data Status at Discharge: Cognitive status at discharge: cognitively intact, Behavioral status at discharge: cooperative, Functional status at discharge: independent ambulation, Overall status at discharge: patient is progressing back to baseline Quality Metrics Clinical Quality Measures [ No reported AMI, CVA or VTE this stay] Coding Level of Care Code 37139 Total time (in minutes) for Discharge: 60 Diagnoses Acute colitis K52.9 Type 2 diabetes mellitus with hyperosmolar hyperglycemic state (HHS) E11.00 AMY (acute kidney injury) N17.9 Moderate nausea and vomiting R11.2 Obstipation K59.00 Hypertension I10 ASHD (arteriosclerotic heart disease) I25.10
[2023-07-31 11:11] LABS: Glucose Point of Care 240 mg/dL (70-110)
--- NOTE | 2023-07-31 11:19 | PC.SOCIAL ---
IMM Update pg 2 of IMM updated and reviewed w/ patient. Copy provided and Copy in chart dated, and initialed.
[2023-07-31] MEDS: bisacodyl 5 mg Tablet 10 MG PO (11:32)
[2023-07-31 11:44] VITALS: BP 114/67; PULSE 57; RESP 18; TEMP 36.7; O2SAT 91
[2023-07-31 12:36] VITALS: BP 114/67; PULSE 57; RESP 18; TEMP 36.7; O2SAT 91
[2023-09-04 09:31] LABS: Blood Gas Sample Site Not specified
== END 2023-07-31 12:37 | disposition home or self-care (01) | DRG 391 ==
LOC: ER 18:52 → MEDSURG 19:36 → ICU 07-28 20:28 → MEDSURG 07-30 17:42
PROVIDERS: Internal Medicine; Admitting Provider Internal Medicine; Emergency Provider Family Medicine; PCP Family Medicine; Visit Provider Student in an Organized Health Care Education/Training Program
DX: K52.9 Noninfective gastroenteritis and colitis, unspecified (principal); E11.00 Type 2 diabetes mellitus with hyperosmolarity without nonketotic hyperglycemic-hyperosmolar coma (NKHHC); E11.10 Type 2 diabetes mellitus with ketoacidosis without coma; I50.20 Unspecified systolic (congestive) heart failure; N17.9 Acute kidney failure, unspecified; E11.43 Type 2 diabetes mellitus with diabetic autonomic (poly)neuropathy; K31.84 Gastroparesis; E11.42 Type 2 diabetes mellitus with diabetic polyneuropathy; I25.10 Atherosclerotic heart disease of native coronary artery without angina pectoris; Z95.5 Presence of coronary angioplasty implant and graft; K44.9 Diaphragmatic hernia without obstruction or gangrene; M79.7 Fibromyalgia; E78.5 Hyperlipidemia, unspecified; I11.0 Hypertensive heart disease with heart failure; K59.00 Constipation, unspecified; R79.89 Other specified abnormal findings of blood chemistry; I25.2 Old myocardial infarction; F41.9 Anxiety disorder, unspecified; F32.A Depression, unspecified; Z87.01 Personal history of pneumonia (recurrent); Z87.440 Personal history of urinary (tract) infections; E86.0 Dehydration; Z66 Do not resuscitate; Z20.822 Contact with and (suspected) exposure to COVID-19; E87.6 Hypokalemia; I44.7 Left bundle-branch block, unspecified
CPT/HCPCS: 36415; 36416; 36573; 36592; 36600; 51702; 71045; 71250; 74018; 74176; 78452; 80048; 80053; 81001; 82009; 82533; 82803; 82962; 83605; 83690; 83735; 83880; 84100; 84132; 84443; 84484; 85025; 85610; 85730; 87040; 87635; 87798; 93005; 93017; 93306; 96372; 96374; 96375; 96376; 99285; A9500; C9113; G0378; J0131; J0610; J1170; J1200; J1650; J1815; J1885; J1940; J2185; J2270; J2405; J2550; J2765; J2785; J3475; J3480; J3490; J7030; J7050; J7060; J7799

== ENCOUNTER → 2024-01-10 09:37 | Outpatient (BNVA) | payer MEDICARE, OTHER, SELFPAY | PROVIDERS: PCP Family Medicine; Visit Provider Specialist | DX: G62.89 Other specified polyneuropathies (principal) | CPT/HCPCS: 99214 ==

== ENCOUNTER → 2024-07-10 10:53 | Outpatient (BNVA) | payer MEDICARE, OTHER, SELFPAY | PROVIDERS: PCP Family Medicine; Visit Provider Specialist | DX: G62.89 Other specified polyneuropathies (principal); E11.42 Type 2 diabetes mellitus with diabetic polyneuropathy | CPT/HCPCS: 99214 ==

== ENCOUNTER → 2025-03-11 14:00 | Outpatient (BNVA) | payer MEDICARE, OTHER, SELFPAY | PROVIDERS: PCP Family Medicine; Visit Provider Specialist | DX: G62.89 Other specified polyneuropathies (principal) | CPT/HCPCS: 99213 ==